=== PATIENT | female | born 1965 | race Caucasian/White ===

== ENCOUNTER 2018-03-20 21:32 | Emergency (ER) | payer OTHER, MEDICAID, SELFPAY ==
[2018-03-20 21:33] VITALS: BP 151/87; PULSE 82; RESP 18; TEMP 36.8; O2SAT 100; BMI 49.6
--- NOTE | 2018-03-20 22:33 | PC.NURSE ---
Pt taking Lasix at home, noticed leg swelling was becoming more and more severe. States takes Lasix for edema. States she has some shortness of breath. Speaking in full sentences. Lungs are clear bilaterally anterior and posterior. Elevated legs to relieve leg edema discomfort.
--- NOTE | 2018-03-20 22:43 | DI.RAD.S_ITS ---
PROCEDURE: XR CHEST 2V INDICATIONS: short of breath TECHNIQUE: 2 views of the chest were acquired. COMPARISON: [facility], CHEST 2 VIEW, 03/07/2017, 9:28. [facility], CHEST 2 VIEW, 12/26/2012, 10:17. FINDINGS: Surgical changes and devices: None. Lungs and pleura: No pleural effusions or pneumothorax. Lungs are clear. Mediastinum: Mediastinal contours are normal. Heart size is normal. Bones and chest wall: No suspicious bony abnormalities. Soft tissues appear unremarkable. IMPRESSION: No acute cardiopulmonary disease process. Dictated by: Anuja Dominique MD, PhD on 03/21/2018 at 9:23 Approved by: Anuja Dominique MD, PhD on 03/21/2018 at 9:23
--- NOTE | 2018-03-20 22:47 | ED_ITS ---
HPI - SOB/Dyspnea General Chief Complaint: Shortness of Breath/Dyspnea Stated Complaint: edema Time Seen by Provider: 03/20/18 22:36 Source: patient Mode of arrival: ambulatory Limitations: no limitations History of Present Illness Patient is a 52-year-old female who presents with lower leg swelling. She is intermittently has leg swelling which she takes Lasix for. This afternoon about 5:00 p.m. she notes increased swelling. He had some mild shortness of breath but thought maybe it was her asthma. She took 40 mg of Lasix which is double her dose. She has urinated multiple times. Breathing and leg swelling is better now. She did not have cough chest tightness heart palpitations or fever. Her breathing is better. Though she has history of orthopnea but that has remained unchanged. She has no dyspnea with exertion. She has been on her feet quite a bit lately. She has noticed increasing swelling over the past couple of days. MD Complaint: shortness of breath Related Data Home Medications Medication Instructions Recorded Confirmed meloxicam [Mobic] 15 mg PO [facility] #0 01/02/18 Previous Rx's Medication Instructions Recorded fluticasone 0 INTRANASAL BID #16 gm 12/26/16 fluconazole [Diflucan] 150 mg PO AMINS #2 tab 05/15/17 gabapentin [Neurontin] 300 mg PO HS #30 cap 07/10/17 mirtazapine 15 - 30 mg PO HS #45 tab 08/29/17 montelukast 10 mg PO HS #30 tab 09/03/17 citalopram 20 mg PO BID #60 tab 10/23/17 ranitidine HCl 300 mg PO QDAY #30 tab 11/26/17 albuterol sulfate [Proventil HFA] 2 puff INH Q4-6HP PRN #1 inh 12/03/17 thyroid (pork) [[place] Thyroid] 1 tab PO QDAY #30 tab 12/28/17 furosemide 20 mg PO QDAYP PRN #30 tab 01/15/18 clonazepam 1 mg PO HSP PRN #30 tab 01/28/18 pramipexole 3 tab PO HS #90 tab 01/28/18 pantoprazole 40 mg tablet,delayed 40 mg PO QDAY #30 tab 03/11/18 release Allergies Allergy/AdvReac Type Severity Reaction Status Date / Time animal dander [ANIMAL DANDER] Allergy Intermediate ITCHY Verified 03/20/18 21:38 WATERY EYES AND SNEEZING Review of Systems Review of Systems All systems reviewed & are unremarkable except as noted in HPI and below Constitutional Denies chills, Denies fever(s), Denies lethargy and Denies weakness Cardiovascular Denies chest pain, Denies irregular heart rhythm, Denies lightheadedness, Denies palpitations, Denies dyspnea, Denies dyspnea on exertion and Denies orthopnea Respiratory Denies cough, Denies dyspnea, Denies dyspnea on exertion and Denies wheezing Gastrointestinal Gastrointestinal: Denies abdominal pain, Denies change in bowel habits, Denies diarrhea, Denies nausea and Denies vomiting Musculoskeletal Reports system reviewed and no additional complaints, except as docu Integumentary/Breasts Denies pruritus, Denies erythema, Denies rash and Denies wounds Neurologic Denies weakness Endocrine Denies palpitations Allergic/Immunologic Denies wheezing PFSH Medical History Obstructive sleep apnea (Acute) Restless leg (Acute) Surgical History History of thyroidectomy Status post breast lumpectomy Status post laparoscopic cholecystectomy Family History Sister Age: 54 History of breast cancer, Onset Age: 38 Social History Smoking Status: Former smoker Exam Initial Vital Signs Initial Vital Signs: Vital Signs Temperature 98.3 F 03/20/18 21:33 Pulse Rate 82 03/20/18 21:33 Respiratory Rate 18 03/20/18 21:33 Blood Pressure 151/87 H 03/20/18 21:33 Pulse Oximetry 100 03/20/18 21:33 Const General: cooperative and well developed Nutritional Appearance: obese Orientation: alert, awake, oriented x3 and not confused Neck Neck: normal visual inspection, full ROM and No JVD Resp Effort & Inspection: normal respiratory effort, able to speak in complete sentences, no respiratory distress and no use of accessory muscles Auscultation: clear to auscultation bilaterally, no rales, no rhonchi and no wheezes Cardio Rate: regular rate Rhythm: regular rhythm Heart Sounds: no click, no gallops, no murmurs and no rubs Pulses: normal peripheral pulses GI Inspection: non-distended Palpation: soft, no hepatosplenomegaly, No guarding, No pulsatile mass and No tender Auscultation: normal bowel sounds Skin General: no rashes or lesions noted, No jaundice and No petechiae Neuro General: alert, oriented x3, gait normal and no focal motor deficits Cranial Nerves: CN's II-XI intact bilaterally Speech: speech normal Motor: strength 5/5 throughout Sensory Exam: no sensory deficits noted Extrem Right lower extremity: edema Details: non-pitting Left lower extremity: edema Details: non-pitting Course Orders Ordered: ED Orders 03/20/18 22:25 B Type Natriuretic Peptide Stat Basic Metabolic Panel Stat Complete Blood Count AUTO DIFF Stat Troponin with CK Cardiac Panel Stat 03/20/18 22:43 XR chest 2V Stat EKG-12 Lead Stat 03/20/18 22:58 Lactate (Lactic Acid) Stat Vital Signs - 8 hr 03/21/18 00:12 Pulse Rate 72 Respiratory Rate 16 Blood Pressure [Right Wrist] 121/56 H Pulse Oximetry 95 MDM - SOB/Dyspnea Differential Diagnosis Likely acute exacerbation of chronic obstructive airways disease and congestive heart failure Medical Records Attestation: I reviewed the patient's medical records. Lab Data Attestation: I reviewed the patient's lab results. Result diagrams: 03/20/18 22:25 03/20/18 22:25 Lab Results 03/20/18 03/20/18 03/20/18 Range/Units 22:25 22:25 22:58 WBC 7.6 (4.5-11.0) X10^3/uL RBC 4.51 (4.0-5.2) X10^6/uL Hgb 12.4 (12.0-16.0) g/dL Hct 37.0 (36-46) % MCV 82.1 (80-100) fL MCH 27.4 (26-34) PG MCHC 33.4 (30-36) % RDW 16.7 H (11.6-14.8) % Plt Count 180 (150-400) X10^3/uL Neut % (Auto) 64.5 (50-75) % Lymph % (Auto) 25.3 (25-40) % [place] % (Auto) 6.9 (3-14) % Eos % (Auto) 2.9 (2-4) % Baso % (Auto) 0.4 (0-2) % Neut # (Auto) 4900 (8176-9654) /uL Sodium 142 (137-145) mmol/L Potassium 3.5 (3.4-5.1) mmol/L Chloride 100.0 (98-107) mmol/L Carbon Dioxide 31.0 (22-32) mmol/L BUN 17.0 (7-17) mg/dL Creatinine 0.70 (0.52-1.04) mg/dL Estimated GFR > 60.0 (>60) mL/min BUN/Creatinine Ratio 24.3 H (6-22) Glucose 116 H (70-100) mg/dL Lactate 0.7 (0.7-2.1) mmol/L Calcium 8.8 (8.4-10.2) mg/dL Total Creatine Kinase 27 L (30-135) U/L Troponin I < 0.012 (0.01-0.034) ng/mL B-Natriuretic Peptide 108.0 (<100) Imaging Data Chest x-ray: Attestation: I personally reviewed and interpreted this imaging study as follows: My impression: No acute cardiopulmonary process Radiologist's impression: ECG Data Attestation: I personally reviewed and interpreted this ECG as follows: Interpretation: Normal sinus rhythm rate [address] changes Discharge Plan Departure Patient Disposition: Home, Self-Care Clinical Impression: Peripheral edema Discharge Date/Time: 03/21/18 00:35 Interventions: ED Discharge Assessment Last Done: 03/21/18 00:35 Instructions: DI for Peripheral Edema -- Bilateral Activity Restrictions/Additional Instructions: *You have been diagnosed with peripheral edema *What to do: Elevate legs as often as possible, worse compression socks if own feet for long periods of time *Take medications as directed -Lasix 20 mg once a day for the next 2 days *Follow up with your primary care provider in 2-3 days *Return to ER if you should have increasing shortness of breath, chest pain, or any new, worsening or concerning symptoms Prescriptions: No Action fluticasone 16 GM spray,suspension Intranasal BID Qty: 16 RF: 0 fluconazole [Diflucan] 150 MG tablet 150 mg PO AMINS Qty: 2 RF: 1 gabapentin [Neurontin] 300 MG capsule 300 mg PO HS Qty: 30 RF: 3 mirtazapine 15 MG tablet 15 - 30 mg PO HS Qty: 45 RF: 3 montelukast 10 MG tablet 10 mg PO HS Qty: 30 RF: 3 citalopram 20 MG tablet 20 mg PO BID Qty: 60 RF: 6 ranitidine HCl 300 MG tablet 300 mg PO QDAY Qty: 30 RF: 3 albuterol sulfate [Proventil HFA] 90 MCG/PUFF HFA aerosol inhaler 2 puff INH Q4-6HP PRNQty: 1 RF: 3 thyroid (pork) [[place] Thyroid] 90 MG tablet 1 tab PO QDAY Qty: 30 RF: 3 meloxicam [Mobic] 15 MG tablet 15 mg PO [facility] Qty: 0 RF: 0 furosemide 20 MG tablet 20 mg PO QDAYP PRNQty: 30 RF: 1 clonazepam 1 MG tablet 1 mg PO HSP PRNQty: 30 RF: 3 pramipexole 0.125 MG tablet 3 tab PO HS Qty: 90 RF: 6 pantoprazole 40 mg tablet,delayed release (DR/EC) 40 mg PO QDAY Qty: 30 RF: 6 Referrals: Ani Mckeon PA-C [Primary Care Provider] -
[2018-03-20 22:55] LABS: Add Manual Diff / Slide Review NO; Basophils Percent Auto 0.4 % (0-2); Eosinophils Percent Auto 2.9 % (2-4); Hemoglobin 12.4 g/dL (12.0-16.0); Lymphocytes Percent Auto 25.3 % (25-40); Mean Corpuscular HGB Conc 33.4 % (30-36); Mean Corpuscular Hemoglobin 27.4 PG (26-34); Mean Corpuscular Volume 82.1 fL (80-100); Monocytes Percent Auto 6.9 % (3-14); Neutrophils Absolute Auto 4900 /uL (3000-5900); Neutrophils Percent Auto 64.5 % (50-75); Platelet Count 180 X10^3/uL (150-400); Red Blood Cell Count 4.51 X10^6/uL (4.0-5.2); Red Cell Distribution Width 16.7 % (11.6-14.8); White Blood Cell Count 7.6 X10^3/uL (4.5-11.0)
[2018-03-20 22:57] LABS: BUN Creatinine Ratio 24.3 (6-22); Calcium 8.8 mg/dL (8.4-10.2); Creatine Kinase 27 U/L (30-135); Estimated Glomerular Filt Rate > 60.0 mL/min (>60); Glucose 116 mg/dL (70-100); HEMOLYSIS < 15 (0-50); Potassium 3.5 mmol/L (3.4-5.1); Sodium 142 mmol/L (137-145)
[2018-03-20 23:09] LABS: Troponin I < 0.012 ng/mL (0.01-0.034)
[2018-03-20 23:12] LABS: Lactate (Lactic Acid) 0.7 mmol/L (0.7-2.1)
[2018-03-21 00:12] VITALS: BP 121/56; PULSE 72; RESP 16; O2SAT 95
== END 2018-03-21 00:35 | disposition home or self-care (01) ==
PROVIDERS: Emergency Provider Emergency Medicine; Family Provider Physician Assistant; PCP Physician Assistant
DX: R60.9 Edema, unspecified (principal)
CPT/HCPCS: 36591; 71046; 80048; 82550; 82553; 83605; 83880; 84484; 85025; 93005; 99282; 99285

== ENCOUNTER → 2018-03-22 08:43 | Outpatient (CLI) | payer OTHER, MEDICAID, SELFPAY ==
[2018-03-22 09:39] LABS: Add Manual Diff / Slide Review NO; Basophils Percent Auto 0.4 % (0-2); Eosinophils Percent Auto 2.9 % (2-4); Hematocrit 36.5 % (36-46); Hemoglobin 12.2 g/dL (12.0-16.0); Lymphocytes Percent Auto 22.2 % (25-40); Mean Corpuscular HGB Conc 33.4 % (30-36); Mean Corpuscular Hemoglobin 27.5 PG (26-34); Mean Corpuscular Volume 82.4 fL (80-100); Monocytes Percent Auto 6.2 % (3-14); Neutrophils Absolute Auto 3600 /uL (3000-5900); Neutrophils Percent Auto 68.3 % (50-75); Platelet Count 182 X10^3/uL (150-400); Red Blood Cell Count 4.43 X10^6/uL (4.0-5.2); Red Cell Distribution Width 16.6 % (11.6-14.8); White Blood Cell Count 5.3 X10^3/uL (4.5-11.0)
[2018-03-22 09:50] LABS: Hemoglobin A1C% w Est Avg Glu 5.7 % (4.0-6.0)
[2018-03-22 10:01] LABS: Alanine Aminotransferase 42 IU/L (9-52); Albumin Globulin Ratio 1.3 (1.0-2.8); Alkaline Phosphatase 98 U/L (38-126); Aspartate Aminotransferase 25 IU/L (14-36); BUN Creatinine Ratio 18.6 (6-22); Bilirubin Total 0.5 mg/dL (0.2-1.3); Calcium 9.1 mg/dL (8.4-10.2); Cholesterol 162 mg/dL (140-199); Estimated Glomerular Filt Rate > 60.0 mL/min (>60); Globulin 3.1 g/dL (1.7-4.1); Glucose 115 mg/dL (70-100); HDL Cholesterol 62 mg/dL (40-60); HEMOLYSIS < 15 (0-50); LDL Cholesterol Calculated 86 mg/dL (<100); Potassium 4.1 mmol/L (3.4-5.1); Sodium 143 mmol/L (137-145); Total Protein 7.1 g/dL (6.3-8.2); Triglycerides 72 mg/dL (35-150)
[2018-03-22 10:17] LABS: Vitamin D 25 Hydroxy (D3) 29.4 ng/mL (30.0-100.0)
[2018-03-22 10:33] LABS: Thyroid Stimulating Hormone 1.08 uIU/mL (0.47-4.68)
== END ==
PROVIDERS: PCP Physician Assistant; Visit Provider Physician Assistant
DX: Z98.84 Bariatric surgery status (principal)
CPT/HCPCS: 36415; 80053; 80061; 82306; 83036; 84443; 85025

== ENCOUNTER → 2018-03-28 15:13 | Outpatient (CLI) | payer OTHER, MEDICAID, SELFPAY ==
[2018-03-28 16:07] LABS: C-Reactive Protein Quant 0.8 mg/dL (<1.0)
[2018-03-28 16:37] LABS: Free T3, Triiodothyronine Free 5.12 pg/mL (2.77-5.27)
[2018-04-01 21:01] LABS: ANA Screen NEGATIVE (Negative); DNA Antibody Crithidia IFA NEGATIVE (Negative); Rheumatoid Factor <14 IU/mL; Sjogren Antiboday SS-A <1.0 NEG AI (<1.0 NEGATIVE); Sjogren Antiboday SS-B <1.0 NEG AI (<1.0 NEGATIVE); Sm Antibody <1.0 NEG AI (<1.0 NEGATIVE); Sm/RNP Antibody <1.0 NEG AI (<1.0 NEGATIVE)
== END ==
PROVIDERS: Family Provider Physician Assistant; PCP Physician Assistant; Visit Provider Physician Assistant
DX: R60.9 Edema, unspecified (principal)
CPT/HCPCS: 36415; 84481; 86038; 86140; 86430

== ENCOUNTER 2018-04-09 13:50 | Day surgery (SDC) | payer OTHER, MEDICAID, SELFPAY ==
[2018-04-09] VITALS (9 sets, daily range): BP systolic 114–136; BP diastolic 71–98; PULSE 65–80; RESP 8–16; TEMP 36.3; O2SAT 93–98; BMI 104.0
--- NOTE | 2018-04-09 | PATH_ITS ---
[facility] Accession Number: [id number] . 01 Material submitted: . PART A: DUODENIUM PART B: GASTRIC PART C: GE JUNCTION . 02 Diagnosis: A. Duodenum, Biopsy: Duodenal mucosa with no diagnostic abnormality. Negative for active inflammation, features of sprue, dysplasia, and malignancy. . B. Stomach, Biopsies: Body-type mucosa with no diagnostic abnormality. No evidence of Helicobacter on H/E stain. Negative for intestinal metaplasia. Negative for dysplasia and malignancy. . C. Gastroesophageal Junction, Biopsy: Squamocolumnar junctional mucosa with no diagnostic abnormality. Negative for intestinal metaplasia by alcian blue stain. Negative for dysplasia and malignancy. [facility]/04/12/2018 . 02 Electronically signed: . Jennifer Montgomery MD, Pathologist NPI- [id number] . 01 Gross description: . Part A: DUODENIUM: Received in formalin is 1 fragment(s) of robison, soft tissue measuring 0.1 x 0.1 x 0.1 cm submitted entirely in 1 cassette(s) Part B: GASTRIC: Received in formalin are 2 fragment(s) of robison, soft tissue measuring 0.2 x 0.2 x 0.2 cm to 0.2 x 0.2 x 0.1 cm submitted entirely in 1 cassette(s) Part C: GE JUNCTION: Received in formalin are 4 fragment(s) of robison, soft tissue measuring 0.3 x 0.1 x 0.1 cm to 0.1 x 0.1 x 0.1 cm submitted entirely in 1 cassette(s) /TRC /TRC . 02 Microscopic: . Part C: An AB/PAS stain was performed to evaluate for intestinal metaplasia and is negative. A control stain showed appropriate reactivity. . 02 Pathologist provided ICD-10: R10.9 . 02 CPT . 564695, 464961, 168432, 480582 Performed at: 01 [facility] [address] [id number] MD Lobito Lopez MD Phone: [phone] Performed at: 02 [facility] [id number] [place] [id number] MD Rangel Haynes MD Phone: [phone]
[2018-04-09] MEDS: SODIUM CHLORIDE 0.9% 1,000 ML 200 ML IV (14:13)
--- NOTE | 2018-04-09 15:09 | PM.HP.1 ---
History of Present Illness Date Patient Seen: 04/09/18 Time Patient Seen: 15:09 Chief complaint: [id number] COLONOSCOPY/EGD Narrative: Very pleasant and generally healthy-appearing lady in no obvious distress. She reports her last colonoscopy was more than 10 years ago. This was longer for the age of 51 but she was having some abdominal pain and so she had a colonoscopy for evaluation. She reports that was normal. She is here today for screening colonoscopy as part of a health maintenance program. Additionally she is being evaluated for gastric bypass and she needs an EGD prior to surgical intervention. Patient History Family & Social History Social History: household members family Tobacco & Substance use: Smoking Status Former smoker alcohol intake frequency 0-2 drinks per day Substance Use Type does not use Meds Home Medications Medication Instructions Recorded Confirmed Type fluticasone 0 INTRANASAL BID #16 gm 12/26/16 03/26/18 Rx fluconazole [Diflucan] 150 mg PO AMINS #2 tab 05/15/17 03/26/18 Rx gabapentin [Neurontin] 300 mg PO HS #30 cap 07/10/17 03/26/18 Rx citalopram 20 mg PO BID #60 tab 10/23/17 03/26/18 Rx albuterol sulfate [Proventil HFA] 2 puff INH Q4-6HP PRN #1 inh 12/03/17 03/26/18 Rx thyroid (pork) [[place] Thyroid] 1 tab PO QDAY #30 tab 12/28/17 03/26/18 Rx meloxicam [Mobic] 15 mg PO [facility] #0 01/02/18 03/26/18 History clonazepam 1 mg PO HSP PRN #30 tab 01/28/18 03/26/18 Rx pramipexole 3 tab PO HS #90 tab 01/28/18 03/26/18 Rx pantoprazole 40 mg tablet,delayed 40 mg PO QDAY #30 tab 03/11/18 03/26/18 Rx release furosemide 20 mg tablet 20 mg PO QDAYP PRN #30 tab 03/25/18 03/26/18 Rx furosemide 20 mg tablet 20 mg PO DAILY PRN #30 tab 03/26/18 Rx metolazone 2.5 mg tablet 2.5 mg PO DAILY #30 tab 03/26/18 Rx potassium chloride ER 10 mEq 10 meq PO DAILY #30 tab 03/26/18 Rx tablet,extended release Allergies Allergy/AdvReac Type Severity Reaction Status Date / Time animal dander [ANIMAL DANDER] Allergy Intermediate ITCHY Verified 04/09/18 14:05 WATERY EYES AND SNEEZING grass pollen AdvReac Intermediate itching Verified 04/09/18 14:05 house dust AdvReac Intermediate itching Verified 04/09/18 14:05 Review of Systems Review of Systems All systems reviewed & are unremarkable except as noted in HPI and below Exam Vital Signs (past 8 hours): Vital Signs - 8 hr 04/09/18 14:13 Temperature 97.3 F L Pulse Rate 80 Blood Pressure 136/78 H Pulse Oximetry 98 Pulse Oximetry 98 Oxygen Delivery Method Room Air Narrative Exam Narrative: Very pleasant lady in no obvious distress HEENT: Normocephalic and atraumatic, pupils equal round reactive to light accommodation with anicteric sclera Lungs: Clear bilaterally Heart: Regular rate and rhythm Abdomen: Soft, rotund, active bowel sounds Extremities: Warm and well perfused, positive for edema Assessment & Plan Plan: Assessment/Plan Narrative: Very pleasant 52-year-old lady who is due for screening colonoscopy and needs an endoscopy as part of evaluation prior to gastric bypass. We have discussed the risks and benefits of both procedures and the patient expressed a desire to continue today
--- NOTE | 2018-04-09 15:12 | P.HP_ITS ---
History of Present Illness Date Patient Seen: 04/09/18 Time Patient Seen: 15:09 Chief complaint: [id number] COLONOSCOPY/EGD Narrative: Very pleasant and generally healthy-appearing lady in no obvious distress. She reports her last colonoscopy was more than 10 years ago. This was longer for the age of 51 but she was having some abdominal pain and so she had a colonoscopy for evaluation. She reports that was normal. She is here today for screening colonoscopy as part of a health maintenance program. Additionally she is being evaluated for gastric bypass and she needs an EGD prior to surgical intervention. Patient History Family & Social History Social History: household members family Tobacco & Substance use: Smoking Status Former smoker alcohol intake frequency 0-2 drinks per day Substance Use Type does not use Meds Home Medications Medication Instructions Recorded Confirmed Type fluticasone 0 INTRANASAL BID #16 gm 12/26/16 03/26/18 Rx fluconazole [Diflucan] 150 mg PO AMINS #2 tab 05/15/17 03/26/18 Rx gabapentin [Neurontin] 300 mg PO HS #30 cap 07/10/17 03/26/18 Rx citalopram 20 mg PO BID #60 tab 10/23/17 03/26/18 Rx albuterol sulfate [Proventil HFA] 2 puff INH Q4-6HP PRN #1 inh 12/03/17 Rx thyroid (pork) [[place] Thyroid] 1 tab PO QDAY #30 tab 12/28/17 03/26/18 Rx meloxicam [Mobic] 15 mg PO [facility] #0 01/02/18 03/26/18 History clonazepam 1 mg PO HSP PRN #30 tab 01/28/18 03/26/18 Rx pramipexole 3 tab PO HS #90 tab 01/28/18 03/26/18 Rx pantoprazole 40 mg tablet,delayed 40 mg PO QDAY #30 tab 03/11/18 03/26/18 Rx release furosemide 20 mg tablet 20 mg PO QDAYP PRN #30 tab 03/25/18 03/26/18 Rx furosemide 20 mg tablet 20 mg PO DAILY PRN #30 tab 03/26/18 Rx metolazone 2.5 mg tablet 2.5 mg PO DAILY #30 tab 03/26/18 Rx potassium chloride ER 10 mEq 10 meq PO DAILY #30 tab 03/26/18 Rx tablet,extended release Allergies Allergy/AdvReac Type Severity Reaction Status Date / Time animal dander [ANIMAL DANDER] Allergy Intermediate ITCHY Verified 04/09/18 14:05 WATERY EYES AND SNEEZING grass pollen AdvReac Intermediate itching Verified 04/09/18 14:05 house dust AdvReac Intermediate itching Verified 04/09/18 14:05 Review of Systems Review of Systems All systems reviewed & are unremarkable except as noted in HPI and below Exam Vital Signs (past 8 hours): Vital Signs - 8 hr 3 04/09/18 14:13 Temperature 97.3 F L Pulse Rate 80 Blood Pressure 136/78 H Pulse Oximetry 98 Pulse Oximetry 98 Oxygen Delivery Method Room Air Narrative Exam Narrative: Very pleasant lady in no obvious distress HEENT: Normocephalic and atraumatic, pupils equal round reactive to light accommodation with anicteric sclera Lungs: Clear bilaterally Heart: Regular rate and rhythm Abdomen: Soft, rotund, active bowel sounds Extremities: Warm and well perfused, positive for edema Assessment & Plan Plan: Assessment/Plan Narrative: Very pleasant 52-year-old lady who is due for screening colonoscopy and needs an endoscopy as part of evaluation prior to gastric bypass. We have discussed the risks and benefits of both procedures and the patient expressed a desire to continue today
--- NOTE | 2018-04-09 15:15 | SUR.OPER ---
to endo from opd via cart respirations unlabored iv patent positioned per self for procedure
[2018-04-09] MEDS: TETRACAINE/BENZOCAINE/BUTAMBEN (CETACAINE) BOTTLE 1 SPRAY TOP (15:23)
[2018-04-09] MEDS: LIDOCAINE 4% SOLN 50 ML 20 ML TOP (15:25)
--- NOTE | 2018-04-09 15:53 | PM.OP.1 ---
Operative Date/Time/Diagnoses - Date of procedure: 04/09/18 Time of procedure: 15:53 Pre-op diagnosis: Screening colonoscopy Pre-surgical planning for weight loss surgery Post-op diagnosis: same Procedure & Clinicians Procedure: Esophageal gastroduodenoscopy with biopsies and colonoscopy to the cecum Same procedure as scheduled: Yes Indications: Last colonoscopy more than 10 years ago Surgeon: Jacqui Rogers Click Yes if Unassisted: Yes Anesthesia Type: Sedation (Versed 14 mg; fentanyl 350 mcg) Operative Notes Findings: 1. Normal duodenum without evidence of inflammation 2. Normal antrum without evidence of inflammation. 3. GE junction at 40 cm from the incisors. 4. Mildly irregular GE junction with a less than 1 cm sliding hiatal hernia 5. Mild diverticulosis limited to the junction of the descending sigmoid colons 6. Excellent prep 7. Grade 1 internal hemorrhoids 8. Normal mucosa throughout without evidence of polyps, mass lesions, or AV malformations Closure Type: not applicable Specimen(s): other (1. Cold forceps biopsy of the duodenum, 2. Cold forceps biopsy of the antrum, 3. Cold forceps biopsy of GE junction) Estimated Blood Loss (mL): 1 Procedure in detail: After obtaining informed consent, the patient was brought to the GI suite and placed in the left lateral decubitus position on the examination table. After placement of appropriate monitors, the patient was given incremental doses of Versed and Fentanyl until an appropriate level of sedation was achieved. A time out was held per SCOAP protocol. We began with EGD. A bite block was gently placed between the patient's teeth. The endoscope was lubricated and then passed into the patient's posterior oropharynx. The esophagus was cannulated under direct vision and the scope was passed to the second portion of the duodenum without difficulty. The scope was then withdrawn with careful examination of all areas of the upper GI tract and mucosa. In the stomach, the instrument was retroflexed and the GE junction examined. The scope was straightened and the procedure continued with examination of the remainder of the upper GI tract. Findings are noted above. Air was aspirated from the stomach and the endoscope gently removed from the esophagus. The examination table was turned and we continued with the colonoscopy. A digital rectal examination was performed and did not reveal any masses or obstructing lesions. The colonoscope was gently passed into the patient's anus and the entire colon navigated to the level of the cecum with minimal difficulty. Once in the cecum, the scope was withdrawn being sure to go before and beyond all mucosal folds and prominences and get an excellent examination. The findings are noted above. At the level of the rectal vault, the scope was retroflexed and the internal anal canal was examined. The scope was straightened and air aspirated from the colon. The instrument was removed from the patient's body and the procedure was concluded. The patient was allowed to awaken from sedation without difficulty and taken to the post-anesthesia care unit in good condition. Total sedation time was 42 min Total colonoscopy withdrawal time was 11 min Complications: none
[2018-04-09] MEDS: fentaNYL 250 MCG/5 ML INJ 350 MCG IV (15:56)
[2018-04-09] MEDS: MIDAZOLAM 5 MG/5 ML VIAL 14 MG IV (15:57)
--- NOTE | 2018-04-09 16:14 | SUR.PHASEI ---
Some desaturations seen when very sleepy.
== END 2018-04-09 16:47 | disposition home or self-care (01) ==
PROVIDERS: Family Provider Physician Assistant; PCP Physician Assistant; Visit Provider Surgery
PROC: 0DJD8ZZ Inspection of Lower Intestinal Tract, Via Natural or Artificial Opening Endoscopic (ICD-10-PCS; CPT 45378; principal; 2018-04-09 15:00)
PROC: 0DJ08ZZ Inspection of Upper Intestinal Tract, Via Natural or Artificial Opening Endoscopic (ICD-10-PCS; CPT 43235; 2018-04-09 15:00)
DX: Z12.11 Encounter for screening for malignant neoplasm of colon (principal); Z01.818 Encounter for other preprocedural examination; E66.9 Obesity, unspecified; K44.9 Diaphragmatic hernia without obstruction or gangrene; K57.30 Diverticulosis of large intestine without perforation or abscess without bleeding; K64.0 First degree hemorrhoids
CPT/HCPCS: 43239; 45378; 88305; 88313; 99152; 99153; J2250; J3010

== ENCOUNTER 2018-06-10 18:47 | Emergency (ER) | payer OTHER, MEDICAID, SELFPAY ==
--- NOTE | 2018-06-10 19:10 | ED.CHESTPAIN ---
HPI - Chest Pain General Chief Complaint: Chest Pain Stated Complaint: CHEST DOESNT FEEL RIGHT,TINGLY,RACING Time Seen by Provider: 06/10/18 19:10 Source: patient Mode of arrival: ambulatory Limitations: no limitations History of Present Illness HPI narrative: The patient arrives with complaints of palpitations, onset today. She is currently asymptomatic. She denies chest pain or dyspnea, she just feels an occasional skipped beat. she does not routinely have palpitations. She has not been ill. She drinks a curtis amount of coffee, no tobacco and no energy drinks. She does take Lasix on an as-needed basis per peripheral edema. Her last dose was 2 days ago. She also takes a potassium supplement. She is unsure of the dose. She has no history of cardiac disease. She has no diagnosis of CHF. Related Data Previous Rx's Medication Instructions Recorded fluticasone 0 INTRANASAL BID #16 gm 12/26/16 fluconazole [Diflucan] 150 mg PO AMINS #2 tab 05/15/17 citalopram 20 mg PO BID #60 tab 10/23/17 albuterol sulfate [Proventil HFA] 2 puff INH Q4-6HP PRN #1 inh 12/03/17 thyroid (pork) [[place] Thyroid] 1 tab PO QDAY #30 tab 12/28/17 pramipexole 3 tab PO HS #90 tab 01/28/18 pantoprazole 40 mg tablet,delayed 40 mg PO QDAY #30 tab 03/11/18 release potassium chloride ER 10 mEq 10 meq PO DAILY #30 tab 03/26/18 tablet,extended release cetirizine 10 mg tablet 10 mg PO DAILY #90 tab 05/16/18 cholecalciferol (vitamin D3) 1,000 1,000 unit PO DAILY #90 cap 05/16/18 unit capsule furosemide 20 mg tablet 20 mg PO DAILY PRN #30 tab 06/03/18 clonazepam 1 mg tablet 1 mg PO HSP PRN #30 tab 06/04/18 metolazone 2.5 mg tablet 2.5 mg PO DAILY #30 tab 06/10/18 Allergies Allergy/AdvReac Type Severity Reaction Status Date / Time animal dander [ANIMAL DANDER] Allergy Intermediate ITCHY Verified 05/16/18 10:08 WATERY EYES AND SNEEZING grass pollen AdvReac Intermediate itching Verified 05/16/18 10:08 house dust AdvReac Intermediate itching Verified 05/16/18 10:08 Review of Systems Constitutional Denies chills, Denies fever(s), Denies lethargy and Denies weakness ENT Ears, Nose, Mouth, and Throat: Denies change in voice, Denies neck pain and Denies sore throat Cardiovascular Denies chest pain, Denies syncope, Denies rapid heart rate, Reports pedal edema, Denies irregular heart rhythm, Denies lightheadedness, Reports palpitations, Denies dyspnea, Denies dyspnea on exertion and Denies orthopnea Respiratory Denies cough, Denies dyspnea, Denies dyspnea on exertion and Denies wheezing Gastrointestinal Gastrointestinal: Denies abdominal pain, Denies change in bowel habits, Denies diarrhea, Denies nausea and Denies vomiting Musculoskeletal Denies back pain, Denies neck pain and Reports other ( Recurrent lower extremity edema.) Integumentary/Breasts Denies pruritus, Denies erythema, Denies rash and Denies wounds Neurologic Denies syncope and Denies weakness Endocrine Reports palpitations Allergic/Immunologic Denies wheezing [facility], [facility] Medical History Obstructive sleep apnea (Acute) Restless leg (Acute) Acquired hypothyroidism (Chronic ~2016) Depression (Chronic Unknown) Peripheral edema (Chronic ~2010) Varicose veins of both lower extremities with complications (Chronic ~2010) Surgical History History of thyroidectomy Status post breast lumpectomy Status post laparoscopic cholecystectomy Family History Sister Age: 54 History of breast cancer, Onset Age: 38 Social History household members: family Smoking Status: Former smoker Tobacco: How many years used: 3 second hand exposure: No alcohol intake: current (Couple glasses of wine a month) substance use type: does not use Exam Initial Vital Signs Initial Vital Signs: Vital Signs Pulse Rate 72 06/10/18 19:33 Respiratory Rate 16 06/10/18 19:33 Blood Pressure 136/69 H 06/10/18 19:33 Pulse Oximetry 98 06/10/18 19:33 Const General: cooperative and well developed Nutritional Appearance: well nourished Orientation: alert, awake, oriented x3 and not confused [facility] Head: normocephalic and atraumatic Mouth: oral mucosae normal and moist mucous membranes Teeth and gingiva: dentition normal and gingiva abnormal Throat: posterior oropharynx normal Eyes Conjunctivae: conjunctivae normal Pupils: PERRL EOM: EOM intact bilaterally Neck Neck: No JVD Chest Chest: No tenderness Resp Effort & Inspection: normal respiratory effort, able to speak in complete sentences and no respiratory distress Auscultation: clear to auscultation bilaterally, no rales, no rhonchi and no wheezes Cardio Rate: regular rate Rhythm: regular rhythm Heart Sounds: S1 normal, S2 normal, no click, no gallops, no murmurs and no rubs Pulses: normal peripheral pulses GI Inspection: non-distended Palpation: soft, no hepatosplenomegaly, No guarding, No pulsatile mass and No tender Auscultation: normal bowel sounds Skin General: no rashes or lesions noted, No jaundice and No petechiae Neuro General: alert, oriented x3, gait normal and no focal motor deficits Speech: speech normal Extrem General: full ROM, no calf tenderness and edema Course Orders Ordered: ED Orders 06/10/18 19:20 Basic Metabolic Panel Stat Complete Blood Count AUTO DIFF Stat Magnesium Stat Discontinued Medications Potassium Chloride (Potassium Chloride) 40 meq PO NOW ONE Stop: 06/10/18 20:01 Last Admin: 06/10/18 20:06 Dose: 40 meq Vital Signs - 8 hr 06/10/18 19:33 Pulse Rate 72 Respiratory Rate 16 Blood Pressure [Left Arm] 136/69 H Pulse Oximetry 98 MDM - Chest Pain Lab Data Result diagrams: 06/10/18 19:20 06/10/18 19:20 Lab Results 06/10/18 06/10/18 Range/Units 19:20 19:20 WBC 9.7 (4.5-11.0) X10^3/uL RBC 4.85 (4.0-5.2) X10^6/uL Hgb 13.9 (12.0-16.0) g/dL Hct 41.8 (36-46) % MCV 86.1 (80-100) fL MCH 28.7 (26-34) PG MCHC 33.4 (30-36) % RDW 16.4 H (11.6-14.8) % Plt Count 233 (150-400) X10^3/uL Neut % (Auto) 75.2 H (50-75) % Lymph % (Auto) 14.9 L (25-40) % [place] % (Auto) 7.1 (3-14) % Eos % (Auto) 2.4 (2-4) % Baso % (Auto) 0.4 (0-2) % Neut # (Auto) 7300 H (9447-9290) /uL Sodium 140 (137-145) mmol/L Potassium 2.5 L* (3.4-5.1) mmol/L Chloride 95 L (98-107) mmol/L Carbon Dioxide 36 H (22-32) mmol/L BUN 13 (7-17) mg/dL Creatinine 0.70 (0.52-1.04) mg/dL Estimated GFR > 60.0 (>60) mL/min BUN/Creatinine Ratio 18.6 (6-22) Glucose 111 H (70-100) mg/dL Calcium 8.7 (8.4-10.2) mg/dL Magnesium 1.8 (1.6-2.3) mg/dL ECG Data Attestation: I personally reviewed and interpreted this ECG as follows: ( EKG: Normal sinus rhythm rate 82 bpm. Possible right ventricular conduction delay. LAFB. No acute ST T wave changes. No ectopy. ) Discharge Plan Departure Patient Disposition: Home, Self-Care Clinical Impression: Acute hypokalemia Instructions: High-Potassium Diet Activity Restrictions/Additional Instructions: I have given him instructions for a high potassium diet, have at least 2 servings daily. Have your doctor recheck your potassium level in about 3 days. Continue with her potassium supplement. Return here as needed. Prescriptions: No Action potassium chloride [Klor-Con 10] 10 mEq tablet extended release 10 meq PO DAILY Qty: 30 RF: 1 cetirizine [All Day Allergy (cetirizine)] 10 mg tablet 10 mg PO DAILY Qty: 90 RF: 3 cholecalciferol (vitamin D3) 1,000 unit capsule 1,000 unit PO DAILY Qty: 90 RF: 3 fluticasone 16 GM spray,suspension Intranasal BID Qty: 16 RF: 0 fluconazole [Diflucan] 150 MG tablet 150 mg PO AMINS Qty: 2 RF: 1 citalopram 20 MG tablet 20 mg PO BID Qty: 60 RF: 6 albuterol sulfate [Proventil HFA] 90 MCG/PUFF HFA aerosol inhaler 2 puff INH Q4-6HP PRNQty: 1 RF: 3 thyroid (pork) [[place] Thyroid] 90 MG tablet 1 tab PO QDAY Qty: 30 RF: 3 pramipexole 0.125 MG tablet 3 tab PO HS Qty: 90 RF: 6 pantoprazole 40 mg tablet,delayed release (DR/EC) 40 mg PO QDAY Qty: 30 RF: 6 furosemide [Lasix] 20 mg tablet 20 mg PO DAILY PRN (Reason: edema) Qty: 30 RF: 0 clonazepam 1 mg tablet 1 mg PO HSP PRN (Reason: anxiety) Qty: 30 RF: 3 metolazone 2.5 mg tablet 2.5 mg PO DAILY Qty: 30 RF: 1
--- NOTE | 2018-06-10 19:27 | PC.NURSE ---
Patient with palpitation - no chest pain;
[2018-06-10 19:33] VITALS: BP 136/69; PULSE 72; RESP 16; O2SAT 98
[2018-06-10 19:33] LABS: Add Manual Diff / Slide Review NO; Basophils Percent Auto 0.4 % (0-2); Eosinophils Percent Auto 2.4 % (2-4); Hematocrit 41.8 % (36-46); Hemoglobin 13.9 g/dL (12.0-16.0); Lymphocytes Percent Auto 14.9 % (25-40); Mean Corpuscular HGB Conc 33.4 % (30-36); Mean Corpuscular Hemoglobin 28.7 PG (26-34); Mean Corpuscular Volume 86.1 fL (80-100); Monocytes Percent Auto 7.1 % (3-14); Neutrophils Absolute Auto 7300 /uL (3000-5900); Neutrophils Percent Auto 75.2 % (50-75); Platelet Count 233 X10^3/uL (150-400); Red Blood Cell Count 4.85 X10^6/uL (4.0-5.2); Red Cell Distribution Width 16.4 % (11.6-14.8); White Blood Cell Count 9.7 X10^3/uL (4.5-11.0)
[2018-06-10 19:38] LABS: BUN Creatinine Ratio 18.6 (6-22); Blood Urea Nitrogen 13 mg/dL (7-17); Calcium 8.7 mg/dL (8.4-10.2); Carbon Dioxide 36 mmol/L (22-32); Chloride 95 mmol/L (98-107); Estimated Glomerular Filt Rate > 60.0 mL/min (>60); Glucose 111 mg/dL (70-100); HEMOLYSIS < 15 (0-50); Magnesium 1.8 mg/dL (1.6-2.3); Sodium 140 mmol/L (137-145)
[2018-06-10 19:57] LABS: Potassium 2.5 mmol/L (3.4-5.1)
[2018-06-10] MEDS: POTASSIUM CHLORIDE 20 MEQ/15 ML UDC 40 MEQ PO (20:06)
[2018-06-10 20:56] VITALS: BP 130/76; PULSE 71; RESP 14; O2SAT 98
== END 2018-06-10 20:56 | disposition home or self-care (01) ==
PROVIDERS: Emergency Provider Emergency Medicine; Family Provider Physician Assistant; PCP Physician Assistant
DX: E87.6 Hypokalemia (principal)
CPT/HCPCS: 36591; 80048; 83735; 85025; 93005; 93010; 93041; 99283; 99284

== ENCOUNTER → 2018-07-11 16:35 | Outpatient (CLI) | payer OTHER, MEDICAID, SELFPAY ==
[2018-07-11 17:53] LABS: HEMOLYSIS < 15 (0-50); Potassium 3.5 mmol/L (3.4-5.1)
[2018-07-11 18:18] LABS: Vitamin D 25 Hydroxy (D3) 52.8 ng/mL (30.0-100.0)
== END ==
PROVIDERS: Family Provider Physician Assistant; PCP Physician Assistant; Visit Provider Physician Assistant
DX: E55.9 Vitamin D deficiency, unspecified (principal); Z98.84 Bariatric surgery status; E87.6 Hypokalemia
CPT/HCPCS: 36415; 82306; 84132

== ENCOUNTER → 2018-08-05 09:44 | Outpatient (CLI) | payer OTHER, MEDICAID, SELFPAY ==
[2018-08-05 11:19] LABS: BUN Creatinine Ratio 21.7 (6-22); Blood Urea Nitrogen 13 mg/dL (7-17); Calcium 9.3 mg/dL (8.4-10.2); Carbon Dioxide 31 mmol/L (22-32); Chloride 101 mmol/L (98-107); Estimated Glomerular Filt Rate > 60.0 mL/min (>60); Glucose 95 mg/dL (70-100); HEMOLYSIS < 15 (0-50); Potassium 4.5 mmol/L (3.4-5.1); Sodium 145 mmol/L (137-145)
== END ==
PROVIDERS: PCP Physician Assistant; Visit Provider Physician Assistant
DX: E87.6 Hypokalemia (principal); R60.9 Edema, unspecified
CPT/HCPCS: 36415; 80048

== ENCOUNTER 2018-08-10 22:12 | Emergency (ER) | payer OTHER, MEDICAID, SELFPAY ==
[2018-08-10 22:21] VITALS: BP 125/53; PULSE 78; RESP 18; TEMP 36.6; O2SAT 99; BMI 44.6
--- NOTE | 2018-08-10 22:24 | ED_ITS ---
HPI - Abdominal Pain General Chief Complaint: Abdominal Pain Stated Complaint: GASTRIC SURGERY NOT FEELING WELL Time Seen by Provider: 08/10/18 22:21 Source: patient Mode of arrival: ambulatory Limitations: no limitations History of Present Illness HPI narrative: 52-year-old female status post Vasu-en-Y gastric bypass performed by Dr. Ortiz on the 29 of July at [facility]. She states that there has been uncomplicated since then. She comes in tonight for less than 24 hr of pain in her epigastric area when eating. No change in bowel. No fevers. Has not talked with her operative surgeon prior to arrival. Related Data Home Medications Medication Instructions Recorded Confirmed Potassium See Label Instructions .ROUTE 08/05/18 08/05/18 .COMPLEX Vitamin D3 See Label Instructions .ROUTE 08/05/18 08/05/18 .COMPLEX Previous Rx's Medication Instructions Recorded fluticasone 0 INTRANASAL BID #16 gm 12/26/16 fluconazole [Diflucan] 150 mg PO AMINS #2 tab 05/15/17 albuterol sulfate [Proventil HFA] 2 puff INH Q4-6HP PRN #1 inh 12/03/17 pramipexole 3 tab PO HS #90 tab 01/28/18 pantoprazole 40 mg tablet,delayed 40 mg PO QDAY #30 tab 03/11/18 release cetirizine 10 mg tablet 10 mg PO DAILY #90 tab 05/16/18 clonazepam 1 mg tablet 1 mg PO HSP PRN #30 tab 06/04/18 metolazone 2.5 mg tablet 2.5 mg PO DAILY #30 tab 06/10/18 citalopram 20 mg PO BID #60 tab 06/17/18 thyroid (pork) [[place] Thyroid] 1 tab PO QDAY #30 tab 06/19/18 mirtazapine 15 mg tablet See Label Instructions PO BEDTIME 07/03/18 PRN #45 tab furosemide 20 mg tablet 20 mg PO DAILY PRN #30 tab 07/12/18 varicella-zoster glycoE [id number] 50 mcg IM ONCE #1 each 08/05/18 adj(PF) 50 mcg/0.5 mL IM susp, kit Allergies Allergy/AdvReac Type Severity Reaction Status Date / Time animal dander [ANIMAL DANDER] Allergy Intermediate ITCHY Verified 08/05/18 09:03 WATERY EYES AND SNEEZING grass pollen AdvReac Intermediate itching Verified 08/05/18 09:03 house dust AdvReac Intermediate itching Verified 08/05/18 09:03 Review of Systems Constitutional Denies fever(s) ENT Ears, Nose, Mouth, and Throat: Denies dysphagia, Denies vertigo and Denies dizziness Cardiovascular Denies chest pain and Denies dyspnea Respiratory Denies cough and Denies dyspnea Gastrointestinal Gastrointestinal: Reports abdominal pain, Denies melena, Denies change in bowel habits, Denies dysphagia, Reports nausea and Reports vomiting Genitourinary Denies dysuria and Denies flank pain Musculoskeletal Denies myalgias and Denies arthralgias Integumentary/Breasts Denies lesions and Denies rash Neurologic Denies vertigo and Denies dizziness Hematologic/Lymphatic Denies easy bleeding and Denies easy bruising [facility] Medical History Acquired hypothyroidism (Chronic ~2016) Allergic rhinitis (Chronic) Depression (Chronic Unknown) Obstructive sleep apnea (Chronic) Peripheral edema (Chronic ~2010) Restless leg (Chronic) Varicose veins of both lower extremities with complications (Chronic ~2010) Surgical History History of thyroidectomy Status post breast lumpectomy Status post laparoscopic cholecystectomy Family History Sister Age: 54 History of breast cancer, Onset Age: 38 Social History household members: family Smoking Status: Former smoker Tobacco: How many years used: 3 second hand exposure: No alcohol intake: current substance use type: does not use Exam Initial Vital Signs Initial Vital Signs: Vital Signs Temperature 97.8 F 08/10/18 22:21 Pulse Rate 78 08/10/18 22:21 Respiratory Rate 18 08/10/18 22:21 Blood Pressure 125/53 L 08/10/18 22:21 Pulse Oximetry 99 08/10/18 22:21 Const General: cooperative, healthy appearing, comfortable, well developed, well groomed and No acute distress Orientation: alert, awake and oriented x3 HENMT Head: normal to inspection and normocephalic Resp Effort & Inspection: normal respiratory effort Auscultation: clear to auscultation bilaterally Cardio Rate: regular rate Pulses: radial pulses present GI Inspection: non-distended Palpation: soft, No firm and tender ( Epigastric region, no rebound or guarding) Skin Other: well healing surgical wounds consistent with her history of gastric bypass Neuro General: alert and awake Extrem General: normal to inspection and capillary refill normal Psych Appearance: grossly normal and well kempt Course Orders Ordered: ED Orders 08/10/18 22:26 CT abdomen pelvis w con Stat Urinalysis and Microscopic Stat 08/10/18 22:30 Complete Blood Count AUTO DIFF Stat Comprehensive Metabolic Panel Stat Lactate (Lactic Acid) Stat Lipase Stat Discontinued Medications Sodium Chloride (Normal Saline 0.9%) 1,000 mls @ 1,000 mls/hr IV BOLUS ONE Stop: 08/10/18 23:24 Last Admin: 08/10/18 22:40 Dose: 1,000 mls/hr Ondansetron HCl (Zofran) 4 mg IV NOW ONE Stop: 08/10/18 23:31 Last Admin: 08/10/18 22:40 Dose: 4 mg Vital Signs - 8 hr 08/10/18 22:21 Temperature 97.8 F Pulse Rate 78 Respiratory Rate 18 Blood Pressure 125/53 L Pulse Oximetry 99 MDM - Abdominal Pain Lab Data Attestation: I reviewed the patient's lab results. Result diagrams: 08/10/18 22:30 08/10/18 22:30 Lab Results 08/10/18 08/10/18 08/10/18 Range/Units 22:30 22:30 22:30 WBC 6.3 (4.5-11.0) X10^3/uL RBC 4.67 (4.0-5.2) X10^6/uL Hgb 13.1 (12.0-16.0) g/dL Hct 39.8 (36-46) % MCV 85.3 (80-100) fL MCH 28.1 (26-34) PG MCHC 32.9 (30-36) % RDW 16.5 H (11.6-14.8) % Plt Count 237 (150-400) X10^3/uL Neut % (Auto) 66.1 (50-75) % Lymph % (Auto) 24.1 L (25-40) % [place] % (Auto) 7.0 (3-14) % Eos % (Auto) 2.1 (2-4) % Baso % (Auto) 0.7 (0-2) % Neut # (Auto) 4100 (8205-8552) /uL Sodium 143 (137-145) mmol/L Potassium 3.6 (3.4-5.1) mmol/L Chloride 106 (98-107) mmol/L Carbon Dioxide 29 (22-32) mmol/L BUN 18 H (7-17) mg/dL Creatinine 0.70 (0.52-1.04) mg/dL Estimated GFR > 60.0 (>60) mL/min BUN/Creatinine Ratio 25.7 H (6-22) Glucose 105 H (70-100) mg/dL Lactate 0.9 (0.7-2.1) mmol/L Calcium 9.0 (8.4-10.2) mg/dL Total Bilirubin 0.4 (0.2-1.3) mg/dL AST 35 (14-36) IU/L ALT 66 H (9-52) IU/L Alkaline Phosphatase 82 (38-126) U/L Total Protein 7.4 (6.3-8.2) g/dL Albumin 4.2 (3.5-5.0) g/dL Globulin 3.2 (1.7-4.1) g/dL Albumin/Globulin Ratio 1.3 (1.0-2.8) Lipase 47 (23-300) U/L Imaging Data CT scan - abdomen: Radiologist's impression: gastric bypass changes as described without evidence of obstruction or contrast extravasation. Cholecystectomy. Postoperative changes. No when asked amount of leak. No free fluid or free air is identified MDM Narrative Medical decision making narrative: patient with a relatively benign abdominal exam. Lactate unremarkable. Labs unremarkable. CT scan shows no signs of obstruction, internal hernia, leaks. Patient does have her medication at home. She is on a PPI. No indication for urgent surgical referrals. Discussed all this with the patient. She was given return precautions. She is going to contact her operative surgeon tomorrow to discuss her symptoms and to discuss follow-up. Patient expressed understanding and agreement with plan. Discharge Plan Departure Patient Disposition: Home Clinical Impression: Abdominal pain Instructions: DI for Abdominal Pain-Adult Activity Restrictions/Additional Instructions: continue all of your postoperative instructions and medications as directed by your operative surgeon. continue to drink small amounts of fluid over longer periods of time. Return to the emergency department for any new symptoms. Call your operative surgeon tomorrow to discuss follow-up. Prescriptions: No Action cetirizine [All Day Allergy (cetirizine)] 10 mg tablet 10 mg PO DAILY Qty: 90 RF: 3 Vitamin D3 See Patient Comments .ROUTE .COMPLEX RF: 0 Potassium See Patient Comments .ROUTE .COMPLEX RF: 0 varicella-zoster [id number] (PF) [Shingrix (PF)] 50 mcg/0.5 mL suspension for reconstitution 50 mcg IM ONCE Qty: 1 RF: 1 fluticasone 16 GM spray,suspension Intranasal BID Qty: 16 RF: 0 fluconazole [Diflucan] 150 MG tablet 150 mg PO AMINS Qty: 2 RF: 1 albuterol sulfate [Proventil HFA] 90 MCG/PUFF HFA aerosol inhaler 2 puff INH Q4-6HP PRNQty: 1 RF: 3 pramipexole 0.125 MG tablet 3 tab PO HS Qty: 90 RF: 6 pantoprazole 40 mg tablet,delayed release (DR/EC) 40 mg PO QDAY Qty: 30 RF: 6 clonazepam 1 mg tablet 1 mg PO HSP PRN (Reason: anxiety) Qty: 30 RF: 3 metolazone 2.5 mg tablet 2.5 mg PO DAILY Qty: 30 RF: 1 citalopram 20 mg tablet 20 mg PO BID Qty: 60 RF: 6 thyroid (pork) [[place] Thyroid] 90 mg tablet 1 tab PO QDAY Qty: 30 RF: 3 mirtazapine 15 mg tablet See Label Instructions PO BEDTIME PRN (Reason: for sleep) Qty: 45 RF: 3 furosemide [Lasix] 20 mg tablet 20 mg PO DAILY PRN (Reason: edema) Qty: 30 RF: 0
--- NOTE | 2018-08-10 22:26 | DI.CT.S_ITS ---
PROCEDURE: CT ABDOMEN PELVIS W CON INDICATIONS: weight loss surgery 07/29 now with abd pain TECHNIQUE: After the administration of intravenous contrast, 5 mm thick sections acquired from the diaphragm to the symphysis. 5 mm coronal and sagittal reformats were acquired. For radiation dose reduction, the following was used: automated exposure control, adjustment of mA and/or kV according to patient size. COMPARISON: None. FINDINGS: Image quality: Excellent. ABDOMEN: Lung bases: Lung bases are clear. Heart size is normal. Solid organs: Liver is enlarged. Gallbladder has been. Biliary system is non dilated. Pancreas enhances normally. Spleen is normal in size and enhancement. No adrenal nodules. Kidneys demonstrate normal size and enhancement, without hydronephrosis. Peritoneum and bowel: Bowel loops demonstrate normal wall thickness and caliber. No free fluid or air. Surgical changes reflecting gastric bypass. No visualized extravasation near the anastomotic site. Nodes and vessels: No retroperitoneal or mesenteric adenopathy by size criteria. Aorta and inferior vena cava are normal in size. Miscellaneous: Subcutaneous fat stranding is present likely representing a laparoscopic port entry for recent surgery. PELVIS: Genitourinary: Bladder wall thickness is normal. Intrauterine device is present. Miscellaneous: No inguinal hernias or adenopathy. Bones: No suspicious bony lesions. No vertebral body compression fractures. IMPRESSION: 1. Postsurgical gastric bypass changes without gross postoperative complication. No visualized anastomotic leak. Dictated by: Sandie Crystal M.D. on 08/11/2018 at 9:17 Approved by: Sandie Crystal M.D. on 08/11/2018 at 9:22
[2018-08-10] MEDS: SODIUM CHLORIDE 0.9% 1,000 ML 1000 ML IV (22:40)
[2018-08-10] MEDS: ONDANSETRON 4 MG/2 ML INJ IV (22:40)
[2018-08-10 22:59] LABS: Add Manual Diff / Slide Review NO; Basophils Percent Auto 0.7 % (0-2); Eosinophils Percent Auto 2.1 % (2-4); Hematocrit 39.8 % (36-46); Hemoglobin 13.1 g/dL (12.0-16.0); Lymphocytes Percent Auto 24.1 % (25-40); Mean Corpuscular HGB Conc 32.9 % (30-36); Mean Corpuscular Hemoglobin 28.1 PG (26-34); Mean Corpuscular Volume 85.3 fL (80-100); Neutrophils Absolute Auto 4100 /uL (3000-5900); Neutrophils Percent Auto 66.1 % (50-75); Platelet Count 237 X10^3/uL (150-400); Red Blood Cell Count 4.67 X10^6/uL (4.0-5.2); Red Cell Distribution Width 16.5 % (11.6-14.8); White Blood Cell Count 6.3 X10^3/uL (4.5-11.0)
[2018-08-10 23:10] LABS: Alanine Aminotransferase 66 IU/L (9-52); Albumin 4.2 g/dL (3.5-5.0); Albumin Globulin Ratio 1.3 (1.0-2.8); Alkaline Phosphatase 82 U/L (38-126); Aspartate Aminotransferase 35 IU/L (14-36); BUN Creatinine Ratio 25.7 (6-22); Bilirubin Total 0.4 mg/dL (0.2-1.3); Blood Urea Nitrogen 18 mg/dL (7-17); Carbon Dioxide 29 mmol/L (22-32); Chloride 106 mmol/L (98-107); Estimated Glomerular Filt Rate > 60.0 mL/min (>60); Globulin 3.2 g/dL (1.7-4.1); Glucose 105 mg/dL (70-100); HEMOLYSIS < 15 (0-50); Lactate (Lactic Acid) 0.9 mmol/L (0.7-2.1); Lipase 47 U/L (23-300); Potassium 3.6 mmol/L (3.4-5.1); Sodium 143 mmol/L (137-145); Total Protein 7.4 g/dL (6.3-8.2)
--- NOTE | 2018-08-11 01:18 | PC.NURSE ---
pt reports gastric bypass on 07/29. has pain when eating that causes vomiting. pt attempted to take po contrast but vomited it up.
[2018-08-11 01:27] VITALS: BP 131/66; PULSE 77; RESP 14; O2SAT 98
--- NOTE | 2018-08-15 16:47 | PC.NURSE ---
Pt states I am doing well,I am feeling 100% normal. Pt met with surgeon and everything looks great. Pt did not have any improvements that we could have made.
== END 2018-08-11 01:29 | disposition home or self-care (01) ==
PROVIDERS: Emergency Provider Emergency Medicine; Family Provider Physician Assistant; PCP Physician Assistant
DX: R10.9 Unspecified abdominal pain (principal)
CPT/HCPCS: 36591; 74177; 80053; 83605; 83690; 85025; 96361; 96374; 99283; 99285; J2405; Q9967

== ENCOUNTER 2018-08-30 18:24 | Emergency (ER) | payer OTHER, MEDICAID, SELFPAY ==
[2018-08-30 18:39] VITALS: BP 125/85; PULSE 93; RESP 18; TEMP 37.1; O2SAT 96; BMI 42.4
--- NOTE | 2018-08-30 20:09 | ED_ITS ---
HPI - Weakness <Ananbel Jimenez PA-C - Last Filed: 08/30/18 22:27> General Chief complaint: Weakness Stated complaint: WEAK AND DIZZY,THINKS DEHYDRATED Time Seen by Provider: 08/30/18 20:03 Source: patient Mode of arrival: ambulatory Limitations: no limitations History of Present Illness HPI Narrative: This 52-year-old female comes in due to feeling of generalized weakness and feeling dizzy, which she describes as foggy headed. She states that she felt better right away after her last visit here and her bariatric surgeon thought she just had a reaction to eating too quickly. For the last 2 days, she states that she has had no energy and though going about her usual activities such as work, she has had to drag herself. She states that she has been very busy and on the go and states she thinks that she is probably dehydrated. Since her surgery, she states that she has been careful to set an alarm and drink plenty of fluids and eat regularly, but she has not for the last couple of days. She states that she has some abdominal discomfort that is typical for her since surgery, which she describes as gas type pain. She has ongoing loose stools and some diarrhea that are unchanged since surgery. She does not have any new urinary symptoms. She has not had any chest pain, dyspnea , or palpitations. She denies any headache or vision change. She has not had any urinary symptoms at all. She states that she did eat today at 4:00 a.m.. She had 1 episode of vomiting earlier, but does not have nausea now and has not had other episodes of this. She states that she thinks that the foggy headed sensation is more of a sensation of feeling out of it, she denies any spinning or sensation that she is falling. Related Data Home Medications Medication Instructions Recorded Confirmed Potassium See Label Instructions .ROUTE 08/05/18 08/05/18 .COMPLEX Vitamin D3 See Label Instructions .ROUTE 08/05/18 08/05/18 .COMPLEX Previous Rx's Medication Instructions Recorded fluticasone 0 INTRANASAL BID #16 gm 12/26/16 fluconazole [Diflucan] 150 mg PO AMINS #2 tab 05/15/17 albuterol sulfate [Proventil HFA] 2 puff INH Q4-6HP PRN #1 inh 12/03/17 pantoprazole 40 mg tablet,delayed 40 mg PO QDAY #30 tab 03/11/18 release cetirizine 10 mg tablet 10 mg PO DAILY #90 tab 05/16/18 clonazepam 1 mg tablet 1 mg PO HSP PRN #30 tab 06/04/18 citalopram 20 mg PO BID #60 tab 06/17/18 thyroid (pork) [Cabot Thyroid] 1 tab PO QDAY #30 tab 06/19/18 mirtazapine 15 mg tablet See Label Instructions PO BEDTIME 07/03/18 PRN #45 tab furosemide 20 mg tablet 20 mg PO DAILY PRN #30 tab 07/12/18 varicella-zoster glycoE [id number] 50 mcg IM ONCE #1 each 08/05/18 adj(PF) 50 mcg/0.5 mL IM susp, kit metolazone 2.5 mg tablet 2.5 mg PO DAILY #30 tab 08/13/18 pramipexole 3 tab PO HS #90 tab 08/26/18 meclizine [Motion Relief 25 mg PO Q4-6H PRN #14 tab 08/30/18 (meclizine)] Allergies Allergy/AdvReac Type Severity Reaction Status Date / Time animal dander [ANIMAL DANDER] Allergy Intermediate ITCHY Verified 08/30/18 18:43 WATERY EYES AND SNEEZING grass pollen AdvReac Intermediate itching Verified 08/30/18 18:43 house dust AdvReac Intermediate itching Verified 08/30/18 18:43 Review of Systems <Annabel Jimenez PA-C - Last Filed: 08/30/18 22:27> Review of Systems All systems reviewed & are unremarkable except as noted in HPI and below Exam <Annabel Jimenez PA-C - Last Filed: 08/30/18 22:27> Narrative Exam Narrative: GENERAL APPEARANCE: Patient sitting comfortably, in no distress. HEENT: PERRL, EOMI, no scleral icterus. No nystagmus. TMs not visible secondary to narrow canals and some increased cerumen. normal oropharynx NECK: Supple LUNGS: Clear to auscultation bilaterally. HEART: Rate and rhythm regular, normal S1 and S2, no S3 or S4. ABDOMEN: Soft, obese,nontender, nondistended, bowel sounds present x 4 quadrants, no masses palpable, no hepatosplenomegaly. EXTREMITIES: No edema, no cyanosis, no calf tenderness DERMATOLOGIC: No jaundice or exanthem NEUROLOGIC: Alert and oriented with normal speech and coordination. mild vertigo elicited with Hallpike maneuver and head turn to right side . Patient is able to ambulate through the ED but appears momentarily off balance with position changes. MS: Normal extremity ROM, no facial muscle asymmetry Initial Vital Signs Initial Vital Signs: Vital Signs Temperature 98.8 F 08/30/18 18:39 Pulse Rate 93 H 08/30/18 18:39 Respiratory Rate 18 08/30/18 18:39 Blood Pressure 125/85 08/30/18 18:39 Pulse Oximetry 96 08/30/18 18:39 <Willie Miller DO - Last Filed: 08/31/18 02:25> Initial Vital Signs Initial Vital Signs: Vital Signs Temperature 98.8 F 08/30/18 18:39 Pulse Rate 93 H 08/30/18 18:39 Respiratory Rate 18 08/30/18 18:39 Blood Pressure 125/85 08/30/18 18:39 Pulse Oximetry 96 08/30/18 18:39 Course <Annabel Jimenez PA-C - Last Filed: 08/30/18 22:27> Additional Information: no concerning neurologic exam findings aside from positive Hallpike maneuver. She did not appear to have any focal weakness. No acute findings on lab work. She will remain off work tomorrow and rest, hydrate and eat normally, take meclizine as needed. She was advised to avoid driving. She agreed to return if any changes or acutely worsening symptoms over the weekend, otherwise will follow up with her PCP if not improved by Sunday . I was unable to visualize her TMs on exam today. Findings reviewed with Dr. Miller who is agreeable with plan Orders Ordered: ED Orders 08/30/18 20:10 Complete Blood Count AUTO DIFF Stat Comprehensive Metabolic Panel Stat Lipase Stat Partial Thromboplastin Time Stat Prothrombin Time INR Stat 08/30/18 20:17 EKG-12 Lead Stat Discontinued Medications Sodium Chloride (Normal Saline 0.9%) 1,000 mls @ 1,000 mls/hr IV BOLUS ONE Stop: 08/30/18 20:59 Last Infusion: 08/30/18 21:14 Dose: 0 mls/hr Admin: 08/30/18 20:14 Dose: 1,000 mls/hr Meclizine HCl (Antivert) 25 mg PO NOW ONE Stop: 08/30/18 20:28 Last Admin: 08/30/18 21:00 Dose: 25 mg Vital Signs - 8 hr 08/30/18 18:39 08/30/18 20:17 08/30/18 21:00 Temperature 98.8 F 97.6 F Pulse Rate 93 H 72 69 Respiratory Rate 18 16 16 Blood Pressure 125/85 Blood Pressure [Left Arm] 110/70 117/62 Pulse Oximetry 96 100 98 08/30/18 21:22 Temperature 97.8 F Pulse Rate 67 Respiratory Rate 16 Blood Pressure Blood Pressure [Left Arm] 103/60 Pulse Oximetry 97 <Willie Miller DO - Last Filed: 08/31/18 02:25> Orders Ordered: ED Orders 08/30/18 20:10 Complete Blood Count AUTO DIFF Stat Comprehensive Metabolic Panel Stat Lipase Stat Partial Thromboplastin Time Stat Prothrombin Time INR Stat 08/30/18 20:17 EKG-12 Lead Stat Discontinued Medications Sodium Chloride (Normal Saline 0.9%) 1,000 mls @ 1,000 mls/hr IV BOLUS ONE Stop: 08/30/18 20:59 Last Infusion: 08/30/18 21:14 Dose: 0 mls/hr Admin: 08/30/18 20:14 Dose: 1,000 mls/hr Meclizine HCl (Antivert) 25 mg PO NOW ONE Stop: 08/30/18 20:28 Last Admin: 08/30/18 21:00 Dose: 25 mg Vital Signs - 8 hr 08/30/18 18:39 08/30/18 20:17 08/30/18 21:00 Temperature 98.8 F 97.6 F Pulse Rate 93 H 72 69 Respiratory Rate 18 16 16 Blood Pressure 125/85 Blood Pressure [Left Arm] 110/70 117/62 Pulse Oximetry 96 100 98 08/30/18 21:22 Temperature 97.8 F Pulse Rate 67 Respiratory Rate 16 Blood Pressure Blood Pressure [Left Arm] 103/60 Pulse Oximetry 97 MDM - Weakness <Annabel Jimenez PA-C - Last Filed: 08/30/18 22:27> Lab Data Attestation: I reviewed the patient's lab results. Result diagrams: 08/30/18 20:10 08/30/18 20:10 Lab Results 08/30/18 08/30/18 08/30/18 Range/Units 20:10 20:10 20:10 WBC 7.8 (4.5-11.0) X10^3/uL RBC 4.69 (4.0-5.2) X10^6/uL Hgb 13.4 (12.0-16.0) g/dL Hct 39.8 (36-46) % MCV 84.9 (80-100) fL MCH 28.5 (26-34) PG MCHC 33.6 (30-36) % RDW 16.2 H (11.6-14.8) % Plt Count 164 (150-400) X10^3/uL Neut % (Auto) 72.9 (50-75) % Lymph % (Auto) 16.4 L (25-40) % [place] % (Auto) 8.5 (3-14) % Eos % (Auto) 1.9 L (2-4) % Baso % (Auto) 0.3 (0-2) % Neut # (Auto) 5700 (7974-9642) /uL PT 11.0 (10.1-12.7) SECONDS INR 1.0 (0.9-1.3) APTT 25 L (26.4-36.2) SECONDS Sodium 140 (137-145) mmol/L Potassium 3.4 (3.4-5.1) mmol/L Chloride 101 (98-107) mmol/L Carbon Dioxide 28 (22-32) mmol/L BUN 18 H (7-17) mg/dL Creatinine 0.60 (0.52-1.04) mg/dL Estimated GFR > 60.0 (>60) mL/min BUN/Creatinine Ratio 30.0 H (6-22) Glucose 100 (70-100) mg/dL Calcium 8.5 (8.4-10.2) mg/dL Total Bilirubin 0.5 (0.2-1.3) mg/dL AST 61 H (14-36) IU/L ALT 69 H (9-52) IU/L Alkaline Phosphatase 80 (38-126) U/L Total Protein 7.3 (6.3-8.2) g/dL Albumin 4.3 (3.5-5.0) g/dL Globulin 3.0 (1.7-4.1) g/dL Albumin/Globulin Ratio 1.4 (1.0-2.8) Lipase 64 (23-300) U/L Urine Dip Bedside Urine Glucose Negative Bedside Urine Bilirubin + 1 Bedside Urine Ketone - Negative Urine Specific [place] 1.020 Bedside Urine Occult Blood - Negative Bedside Urine pH 6.0 Bedside Urine Protein - Negative Bedside Urine Urobilinogen - Negative Bedside Urine Nitrite - Negative Bedside Urine Leukocytes - Negative Esterase ECG Data Attestation: I personally reviewed and interpreted this ECG as follows: ( normal sinus rhythm with bundle branch pattern, no acute change) Prior ECG tracings: available for review <Willie Miller DO - Last Filed: 08/31/18 02:25> Lab Data Lab Results 08/30/18 08/30/18 08/30/18 Range/Units 20:10 20:10 20:10 WBC 7.8 (4.5-11.0) X10^3/uL RBC 4.69 (4.0-5.2) X10^6/uL Hgb 13.4 (12.0-16.0) g/dL Hct 39.8 (36-46) % MCV 84.9 (80-100) fL MCH 28.5 (26-34) PG MCHC 33.6 (30-36) % RDW 16.2 H (11.6-14.8) % Plt Count 164 (150-400) X10^3/uL Neut % (Auto) 72.9 (50-75) % Lymph % (Auto) 16.4 L (25-40) % [place] % (Auto) 8.5 (3-14) % Eos % (Auto) 1.9 L (2-4) % Baso % (Auto) 0.3 (0-2) % Neut # (Auto) 5700 (6988-3190) /uL PT 11.0 (10.1-12.7) SECONDS INR 1.0 (0.9-1.3) APTT 25 L (26.4-36.2) SECONDS Sodium 140 (137-145) mmol/L Potassium 3.4 (3.4-5.1) mmol/L Chloride 101 (98-107) mmol/L Carbon Dioxide 28 (22-32) mmol/L BUN 18 H (7-17) mg/dL Creatinine 0.60 (0.52-1.04) mg/dL Estimated GFR > 60.0 (>60) mL/min BUN/Creatinine Ratio 30.0 H (6-22) Glucose 100 (70-100) mg/dL Calcium 8.5 (8.4-10.2) mg/dL Total Bilirubin 0.5 (0.2-1.3) mg/dL AST 61 H (14-36) IU/L ALT 69 H (9-52) IU/L Alkaline Phosphatase 80 (38-126) U/L Total Protein 7.3 (6.3-8.2) g/dL Albumin 4.3 (3.5-5.0) g/dL Globulin 3.0 (1.7-4.1) g/dL Albumin/Globulin Ratio 1.4 (1.0-2.8) Lipase 64 (23-300) U/L Urine Dip Bedside Urine Glucose Negative Bedside Urine Bilirubin + 1 Bedside Urine Ketone - Negative Urine Specific [place] 1.020 Bedside Urine Occult Blood - Negative Bedside Urine pH 6.0 Bedside Urine Protein - Negative Bedside Urine Urobilinogen - Negative Bedside Urine Nitrite - Negative Bedside Urine Leukocytes - Negative Esterase Discharge Plan Departure Patient Disposition: Home Clinical Impression: Vertigo, Generalized weakness Discharge Date/Time: 08/30/18 22:10 Interventions: ED Discharge Assessment Last Done: 08/30/18 22:09 Instructions: DI for Vertigo Activity Restrictions/Additional Instructions: There were no acute problems found on your testing today to explain all of your symptoms however your exam today seems most consistent with a vertigo. 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 Remember this can make you sleepy and not to drive (you should not drive until your dizziness has resolved). You should remain off work tomorrow and rest, eat and drink normally. You should call your PCP 1st thing on Sunday and arrange for follow -up on Sunday if you're not feeling better by then. Please return as we talked about if you have any acutely worsening symptoms over the weekend , or new symptoms such as localized weakness, vision change, or fever or vomiting. Prescriptions: New meclizine [Motion Relief (meclizine)] 25 mg tablet 25 mg PO Q4-6H PRN (Reason: dizziness or vertigo) Qty: 14 RF: 0 No Action cetirizine [All Day Allergy (cetirizine)] 10 mg tablet 10 mg PO DAILY Qty: 90 RF: 3 Vitamin D3 See Patient Comments .ROUTE .COMPLEX RF: 0 Potassium See Patient Comments .ROUTE .COMPLEX RF: 0 varicella-zoster [id number] (PF) [Shingrix (PF)] 50 mcg/0.5 mL suspension for reconstitution 50 mcg IM ONCE Qty: 1 RF: 1 fluticasone 16 GM spray,suspension Intranasal BID Qty: 16 RF: 0 fluconazole [Diflucan] 150 MG tablet 150 mg PO AMINS Qty: 2 RF: 1 albuterol sulfate [Proventil HFA] 90 MCG/PUFF HFA aerosol inhaler 2 puff INH Q4-6HP PRNQty: 1 RF: 3 pantoprazole 40 mg tablet,delayed release (DR/EC) 40 mg PO QDAY Qty: 30 RF: 6 clonazepam 1 mg tablet 1 mg PO HSP PRN (Reason: anxiety) Qty: 30 RF: 3 citalopram 20 mg tablet 20 mg PO BID Qty: 60 RF: 6 thyroid (pork) [Cabot Thyroid] 90 mg tablet 1 tab PO QDAY Qty: 30 RF: 3 mirtazapine 15 mg tablet See Label Instructions PO BEDTIME PRN (Reason: for sleep) Qty: 45 RF: 3 furosemide [Lasix] 20 mg tablet 20 mg PO DAILY PRN (Reason: edema) Qty: 30 RF: 0 metolazone 2.5 mg tablet 2.5 mg PO DAILY Qty: 30 RF: 0 pramipexole 0.125 mg tablet 3 tab PO HS Qty: 90 RF: 6 Referrals: Ani Mckeon PA-C [Primary Care Provider] - <Willie Miller DO - Last Filed: 08/31/18 02:25> Cosign ED Attending Vasile Attestation: I was immediately available in the department for consultation. Documentation has been reviewed. I agree with assessment and plan.
[2018-08-30] MEDS: SODIUM CHLORIDE 0.9% 1,000 ML 1000 ML IV (20:14)
[2018-08-30 20:16] LABS: Add Manual Diff / Slide Review NO; Basophils Percent Auto 0.3 % (0-2); Eosinophils Percent Auto 1.9 % (2-4); Hematocrit 39.8 % (36-46); Hemoglobin 13.4 g/dL (12.0-16.0); Lymphocytes Percent Auto 16.4 % (25-40); Mean Corpuscular HGB Conc 33.6 % (30-36); Mean Corpuscular Hemoglobin 28.5 PG (26-34); Mean Corpuscular Volume 84.9 fL (80-100); Monocytes Percent Auto 8.5 % (3-14); Neutrophils Absolute Auto 5700 /uL (3000-5900); Neutrophils Percent Auto 72.9 % (50-75); Platelet Count 164 X10^3/uL (150-400); Red Blood Cell Count 4.69 X10^6/uL (4.0-5.2); Red Cell Distribution Width 16.2 % (11.6-14.8); White Blood Cell Count 7.8 X10^3/uL (4.5-11.0)
[2018-08-30 20:17] VITALS: BP 110/70; PULSE 72; RESP 16; TEMP 36.4; O2SAT 100
[2018-08-30 20:26] LABS: PTT Partial Thromboplastin Tim 25 SECONDS (26.4-36.2)
[2018-08-30 20:27] LABS: Alanine Aminotransferase 69 IU/L (9-52); Albumin 4.3 g/dL (3.5-5.0); Albumin Globulin Ratio 1.4 (1.0-2.8); Alkaline Phosphatase 80 U/L (38-126); Aspartate Aminotransferase 61 IU/L (14-36); Bilirubin Total 0.5 mg/dL (0.2-1.3); Blood Urea Nitrogen 18 mg/dL (7-17); Calcium 8.5 mg/dL (8.4-10.2); Carbon Dioxide 28 mmol/L (22-32); Chloride 101 mmol/L (98-107); Estimated Glomerular Filt Rate > 60.0 mL/min (>60); Glucose 100 mg/dL (70-100); HEMOLYSIS 85 (0-50); Lipase 64 U/L (23-300); Sodium 140 mmol/L (137-145); Total Protein 7.3 g/dL (6.3-8.2)
[2018-08-30 20:28] LABS: Potassium 3.4 mmol/L (3.4-5.1)
[2018-08-30 21:00] VITALS: BP 117/62; PULSE 69; RESP 16; O2SAT 98
[2018-08-30] MEDS: MECLIZINE HCL 12.5 MG TABLET 25 MG PO (21:00)
[2018-08-30 21:22] VITALS: BP 103/60; PULSE 67; RESP 16; TEMP 36.6; O2SAT 97
== END 2018-08-30 22:10 | disposition home or self-care (01) ==
PROVIDERS: Emergency Medicine; Emergency Provider Internal Medicine; Family Provider Physician Assistant; PCP Physician Assistant
DX: R42 Dizziness and giddiness (principal); R53.1 Weakness
CPT/HCPCS: 36591; 80053; 81003; 83690; 85025; 85610; 85730; 93005; 93010; 96360; 99283; 99284

== ENCOUNTER 2018-09-28 13:14 | Emergency (ER) | payer OTHER, MEDICAID, SELFPAY ==
[2018-09-28 13:18] VITALS: BP 137/92; PULSE 68; RESP 16; TEMP 36.3; O2SAT 99; BMI 41.3
--- NOTE | 2018-09-28 14:07 | ED_ITS ---
HPI - Abdominal Pain <SOLEDAD Taylor - Last Filed: 09/28/18 22:03> General Chief Complaint: Abdominal Pain Stated Complaint: NAUSEA,VOMITTING,ABD PAIN Time Seen by Provider: 09/28/18 14:06 Source: patient Mode of arrival: ambulatory Limitations: no limitations History of Present Illness HPI narrative: 53-year-old female with history of recent gastric bypass surgery and is a former smoker here for complaint of left upper quadrant pain and epigastric pain that started earlier today. She states that she drank a cup of coffee this morning and she started having symptoms this shortly afterwards. She reports that she had a few episodes of vomiting shortly after this timeframe. She states her last bowel movement was earlier today and was unremarkable. She also reports having decreased amount of flatus today. She denies any fevers or chills. No trauma to the abdominal area. She denies any urinary symptoms. She denies any stressors or relievers of her discomfort MD complaint: abdominal pain Related Data Home Medications Medication Instructions Recorded Confirmed Potassium See Label Instructions .ROUTE 08/05/18 08/05/18 .COMPLEX Vitamin D3 See Label Instructions .ROUTE 08/05/18 08/05/18 .COMPLEX Previous Rx's Medication Instructions Recorded fluticasone 0 INTRANASAL BID #16 gm 12/26/16 fluconazole [Diflucan] 150 mg PO AMINS #2 tab 05/15/17 albuterol sulfate [Proventil HFA] 2 puff INH Q4-6HP PRN #1 inh 12/03/17 pantoprazole 40 mg tablet,delayed 40 mg PO QDAY #30 tab 03/11/18 release cetirizine 10 mg tablet 10 mg PO DAILY #90 tab 05/16/18 clonazepam 1 mg tablet 1 mg PO HSP PRN #30 tab 06/04/18 citalopram 20 mg PO BID #60 tab 06/17/18 thyroid (pork) [[place] Thyroid] 1 tab PO QDAY #30 tab 06/19/18 mirtazapine 15 mg tablet See Label Instructions PO BEDTIME 07/03/18 PRN #45 tab varicella-zoster glycoE [id number] 50 mcg IM ONCE #1 each 08/05/18 adj(PF) 50 mcg/0.5 mL IM susp, kit metolazone 2.5 mg tablet 2.5 mg PO DAILY #30 tab 08/13/18 pramipexole 3 tab PO HS #90 tab 08/26/18 meclizine [Motion Relief 25 mg PO Q4-6H PRN #14 tab 08/30/18 (meclizine)] furosemide 20 mg tablet 20 mg PO DAILY PRN #30 tab 09/20/18 potassium chloride ER 10 mEq 10 meq PO BID #60 tab 09/25/18 tablet,extended release hydrocodone-acetaminophen [[place]] 1 tab PO Q4-6H PRN #10 tab 09/28/18 ondansetron 4 mg PO Q6-8H PRN #12 tab 09/28/18 Allergies Allergy/AdvReac Type Severity Reaction Status Date / Time animal dander [ANIMAL DANDER] Allergy Intermediate ITCHY Verified 09/28/18 13:23 WATERY EYES AND SNEEZING grass pollen AdvReac Intermediate itching Verified 09/28/18 13:23 house dust AdvReac Intermediate itching Verified 09/28/18 13:23 Review of Systems <SOLEDAD Taylor - Last Filed: 09/28/18 22:03> Review of Systems All systems reviewed & are unremarkable except as noted in HPI and below Constitutional Denies chills, Denies fever(s), Denies lethargy and Denies weakness Eyes Denies change in vision, Denies eye discharge, Denies irritation and Denies loss of vision ENT Ears, Nose, Mouth, and Throat: Denies change in voice, Denies neck pain and Denies sore throat Cardiovascular Denies chest pain, Denies irregular heart rhythm, Denies lightheadedness, Denies palpitations, Denies dyspnea, Denies dyspnea on exertion and Denies orthopnea Respiratory Denies cough, Denies dyspnea, Denies dyspnea on exertion and Denies wheezing Gastrointestinal Gastrointestinal: Reports abdominal pain and Reports vomiting Genitourinary Denies hematuria, Denies flank pain, Denies urinary incontinence and Denies urinary urgency Musculoskeletal Denies neck pain Integumentary/Breasts Denies pruritus, Denies erythema, Denies rash and Denies wounds Neurologic Denies confusion, Denies loss of vision and Denies weakness Psychiatric Denies anxiety, Denies confusion, Denies depression, Denies homicidal ideation and Denies suicidal ideation Endocrine Denies palpitations Hematologic/Lymphatic Denies easy bruising Allergic/Immunologic Denies wheezing Exam <SOLEDAD Taylor - Last Filed: 09/28/18 22:03> Initial Vital Signs Initial Vital Signs: Vital Signs Temperature 97.3 F L 09/28/18 13:18 Pulse Rate 68 09/28/18 13:18 Respiratory Rate 16 09/28/18 13:18 Blood Pressure 137/92 H 09/28/18 13:18 Pulse Oximetry 99 09/28/18 13:18 Const General: cooperative and well developed Nutritional Appearance: well nourished Orientation: alert, awake, oriented x3 and not confused [facility] Mouth: oral mucosae normal and moist mucous membranes Eyes Conjunctivae: conjunctivae normal Sclera: sclerae normal Pupils: PERRL EOM: EOM intact bilaterally Resp Effort & Inspection: normal respiratory effort, able to speak in complete sentences, no respiratory distress and no use of accessory muscles Auscultation: clear to auscultation bilaterally, no rales, no rhonchi and no wheezes Cardio Rate: regular rate Rhythm: regular rhythm Heart Sounds: no click, no gallops, no murmurs and no rubs GI Inspection: non-distended Palpation: soft, no hepatosplenomegaly, No guarding, No pulsatile mass and tender Auscultation: normal bowel sounds General: No CVA tenderness Skin General: no rashes or lesions noted, No jaundice and No petechiae Neuro General: alert, oriented x3, gait normal and no focal motor deficits Speech: speech normal <Akshat Mercado DO - Last Filed: 09/29/18 07:05> Initial Vital Signs Initial Vital Signs: Vital Signs Temperature 97.3 F L 09/28/18 13:18 Pulse Rate 68 09/28/18 13:18 Respiratory Rate 16 09/28/18 13:18 Blood Pressure 137/92 H 09/28/18 13:18 Pulse Oximetry 99 09/28/18 13:18 Course <SOLEDAD Taylor - Last Filed: 09/28/18 22:03> Orders Ordered: Discontinued Medications Hydromorphone HCl (Dilaudid) 1 mg IV NOW ONE Stop: 09/28/18 16:03 Last Admin: 09/28/18 16:13 Dose: 1 mg Sodium Chloride (Normal Saline 0.9%) 1,000 mls @ 1,000 mls/hr IV BOLUS ONE Stop: 09/28/18 15:26 Last Infusion: 09/28/18 16:25 Dose: 0 mls/hr Admin: 09/28/18 14:51 Dose: 1,000 mls/hr Lactated Ringer's (Lactated Ringers) 1,000 mls @ 1,000 mls/hr IV BOLUS ONE Stop: 09/28/18 17:31 Last Infusion: 09/28/18 17:58 Dose: 0 mls/hr Admin: 09/28/18 16:36 Dose: 1,000 mls/hr Ondansetron HCl (Zofran) 4 mg IV NOW ONE Stop: 09/28/18 14:28 Last Admin: 09/28/18 14:51 Dose: 4 mg Vital Signs - 8 hr 09/28/18 15:08 09/28/18 16:16 09/28/18 17:49 Pulse Rate 61 66 60 Respiratory Rate 17 15 17 Blood Pressure [Right Arm] 105/67 113/68 99/61 Pulse Oximetry 99 99 97 <Akshat Mercado DO - Last Filed: 09/29/18 07:05> Orders Ordered: Discontinued Medications Hydromorphone HCl (Dilaudid) 1 mg IV NOW ONE Stop: 09/28/18 16:03 Last Admin: 09/28/18 16:13 Dose: 1 mg Sodium Chloride (Normal Saline 0.9%) 1,000 mls @ 1,000 mls/hr IV BOLUS ONE Stop: 09/28/18 15:26 Last Infusion: 09/28/18 16:25 Dose: 0 mls/hr Admin: 09/28/18 14:51 Dose: 1,000 mls/hr Lactated Ringer's (Lactated Ringers) 1,000 mls @ 1,000 mls/hr IV BOLUS ONE Stop: 09/28/18 17:31 Last Infusion: 09/28/18 17:58 Dose: 0 mls/hr Admin: 09/28/18 16:36 Dose: 1,000 mls/hr Ondansetron HCl (Zofran) 4 mg IV NOW ONE Stop: 09/28/18 14:28 Last Admin: 09/28/18 14:51 Dose: 4 mg Vital Signs - 8 hr 09/28/18 15:08 09/28/18 16:16 09/28/18 17:49 Pulse Rate 61 66 60 Respiratory Rate 17 15 17 Blood Pressure [Right Arm] 105/67 113/68 99/61 Pulse Oximetry 99 99 97 MDM - Abdominal Pain <SOLEDAD Taylor - Last Filed: 09/28/18 22:03> Lab Data Result diagrams: 09/28/18 14:35 09/28/18 14:35 Lab Results 09/28/18 09/28/18 09/28/18 Range/Units 14:35 14:35 Unknown WBC 5.3 (4.5-11.0) X10^3/uL RBC 4.69 (4.0-5.2) X10^6/uL Hgb 13.0 (12.0-16.0) g/dL Hct 39.9 (36-46) % MCV 85.2 (80-100) fL MCH 27.8 (26-34) PG MCHC 32.6 (30-36) % RDW 17.0 H (11.6-14.8) % Plt Count 180 (150-400) X10^3/uL Neut % (Auto) 70.5 (50-75) % Lymph % (Auto) 20.6 L (25-40) % [place] % (Auto) 6.5 (3-14) % Eos % (Auto) 1.8 L (2-4) % Baso % (Auto) 0.6 (0-2) % Neut # (Auto) 3700 (0663-1993) /uL Sodium 145 (137-145) mmol/L Potassium 3.2 L (3.4-5.1) mmol/L Chloride 103 (98-107) mmol/L Carbon Dioxide 32 (22-32) mmol/L BUN 11 (7-17) mg/dL Creatinine 0.60 (0.52-1.04) mg/dL Estimated GFR > 60.0 (>60) mL/min BUN/Creatinine Ratio 18.3 (6-22) Glucose 90 (70-100) mg/dL Calcium 9.1 (8.4-10.2) mg/dL Total Bilirubin 0.5 (0.2-1.3) mg/dL AST 27 (14-36) IU/L ALT 37 (9-52) IU/L Alkaline Phosphatase 87 (38-126) U/L Total Protein 7.0 (6.3-8.2) g/dL Albumin 4.1 (3.5-5.0) g/dL Globulin 2.9 (1.7-4.1) g/dL Albumin/Globulin Ratio 1.4 (1.0-2.8) Lipase 45 (23-300) U/L Urine RBC 0-1/hpf (0-5/HPF) Urine WBC None seen (0-5/HPF) Ur Squamous Epith Cells 0-1 /hpf Urine Bacteria None seen (None) Urine Mucus 1+ H (Negative) Ur Culture Indicated? Not Reportable Micro UA Comment Not Reportable Point of care testing: Point of Care Testing Test Results Negative Urine Dip Bedside Urine Glucose Negative Bedside Urine Bilirubin ++ 2 Bedside Urine Ketone +/- 5 Urine Specific [place] 1.030 Bedside Urine Occult Blood - Negative Bedside Urine pH 6.0 Bedside Urine Protein + 30 Bedside Urine Urobilinogen +/- 1mg Bedside Urine Nitrite - Negative Bedside Urine Leukocytes - Negative Esterase Imaging Data CT scan - abdomen: Radiologist's impression: [address] [place] [id number] Scan Report Signed Patient: Minnie Price [facility]#: [id number] : 1965Acct:[id number] Age/Sex: 53 / FDate of Service: 09/28/18 Loc: ED Accession Number: [id number] Procedure: CT abdomen pelvis w con Ordering Provider: Randy Mirza PROCEDURE: CT ABDOMEN PELVIS W CON INDICATIONS: Recent gastric bypass surgery pain into epigastric/luq TECHNIQUE: After the administration of intravenous contrast, 5 mm thick sections acquired from the diaphragm to the symphysis. 5 mm coronal and sagittal reformats were acquired. For radiation dose reduction, the following was used: automated exposure control, adjustment of mA and/or kV according to patient size. COMPARISON: [facility], CT, CT ABDOMEN PELVIS W CON, 08/10/2018, 23:23. FINDINGS: Image quality: Excellent. ABDOMEN: Lung bases: Lung bases are clear. Heart size is normal. Solid organs: Liver is normal in size and enhancement. Hepatic contour is mildly nodular. Gallbladder is surgically absent. Biliary system is non dilated. Pancreas enhances normally. Spleen is normal in size and enhancement. No adrenal nodules. Kidneys demonstrate normal size and enhancement, without hydronephrosis. Peritoneum and bowel: Gastric bypass has been performed. There is moderate debris within the pouch. Additionally, there is moderate narrowing of the pouch-alimentary limb anastomosis. No free fluid or air. Normal appendix. Small bowel and colon are within normal limits. Nodes and vessels: No retroperitoneal or mesenteric adenopathy by size criteria. Aorta and inferior vena cava are normal in size. Miscellaneous: No ventral hernias. PELVIS: Genitourinary: Bladder wall thickness is normal. Intrauterine device. Miscellaneous: No inguinal hernias or adenopathy. Bones: No suspicious bony lesions. No vertebral body compression fractures. IMPRESSION: 1. Status post gastric bypass surgery, with moderate narrowing at the pouch- alimentary limb anastomosis, with consequent moderate retained debris within the pouch. 2. Normal appendix. Dictated by: Jayme Oakes M.D. on 09/28/2018 at 15:58 Approved by: Jayme Oakes M.D. on 09/28/2018 at 16:03 MDM Narrative Medical decision making narrative: CBC and Chem panel were obtained were unremarkable other than a mild kalemia. Lipase was normal. She was given fluids and Zofran along with Dilaudid for discomfort which helped her symptoms in the emergency room. CT of the abdomen shows signs of narrowing of the pouch and also debris inside the pouch of her gastric bypass. No other acute findings are seen on CT. Discussed case with Dr. Ortiz bariatric surgeon from who performed the surgery and states that watchful waiting at this point in time as her vitals are normal and her laboratory results are unremarkable. She recommends that she gets placed on a fluid diet until next week and when they can follow up with her. Patient is tolerating p.o. fluids. She did not recommend giving potassium chloride at this timeframe a did recommend given her a L of LR. She is prescribed [place] for discomfort. She is also prescribed Zofran to help with the nausea. For any worsening symptoms return to the emergency room. <Akshat Mercado, - Last Filed: 09/29/18 07:05> Lab Data Lab Results 09/28/18 09/28/18 09/28/18 Range/Units 14:35 14:35 Unknown WBC 5.3 (4.5-11.0) X10^3/uL RBC 4.69 (4.0-5.2) X10^6/uL Hgb 13.0 (12.0-16.0) g/dL Hct 39.9 (36-46) % MCV 85.2 (80-100) fL MCH 27.8 (26-34) PG MCHC 32.6 (30-36) % RDW 17.0 H (11.6-14.8) % Plt Count 180 (150-400) X10^3/uL Neut % (Auto) 70.5 (50-75) % Lymph % (Auto) 20.6 L (25-40) % [place] % (Auto) 6.5 (3-14) % Eos % (Auto) 1.8 L (2-4) % Baso % (Auto) 0.6 (0-2) % Neut # (Auto) 3700 (2672-9020) /uL Sodium 145 (137-145) mmol/L Potassium 3.2 L (3.4-5.1) mmol/L Chloride 103 (98-107) mmol/L Carbon Dioxide 32 (22-32) mmol/L BUN 11 (7-17) mg/dL Creatinine 0.60 (0.52-1.04) mg/dL Estimated GFR > 60.0 (>60) mL/min BUN/Creatinine Ratio 18.3 (6-22) Glucose 90 (70-100) mg/dL Calcium 9.1 (8.4-10.2) mg/dL Total Bilirubin 0.5 (0.2-1.3) mg/dL AST 27 (14-36) IU/L ALT 37 (9-52) IU/L Alkaline Phosphatase 87 (38-126) U/L Total Protein 7.0 (6.3-8.2) g/dL Albumin 4.1 (3.5-5.0) g/dL Globulin 2.9 (1.7-4.1) g/dL Albumin/Globulin Ratio 1.4 (1.0-2.8) Lipase 45 (23-300) U/L Urine RBC 0-1/hpf (0-5/HPF) Urine WBC None seen (0-5/HPF) Ur Squamous Epith Cells 0-1 /hpf Urine Bacteria None seen (None) Urine Mucus 1+ H (Negative) Ur Culture Indicated? Not Reportable Micro UA Comment Not Reportable Point of care testing: Point of Care Testing Test Results Negative Urine Dip Bedside Urine Glucose Negative Bedside Urine Bilirubin ++ 2 Bedside Urine Ketone +/- 5 Urine Specific [place] 1.030 Bedside Urine Occult Blood - Negative Bedside Urine pH 6.0 Bedside Urine Protein + 30 Bedside Urine Urobilinogen +/- 1mg Bedside Urine Nitrite - Negative Bedside Urine Leukocytes - Negative Esterase Discharge Plan Departure Patient Disposition: Home Clinical Impression: Abdominal pain Discharge Date/Time: 09/28/18 18:22 Interventions: ED Discharge Assessment Last Done: 09/28/18 18:21 Instructions: DI for Abdominal Pain-Adult Activity Restrictions/Additional Instructions: Other than minor of low potassium level laboratory results today were unremarkable. CT shows some narrowing of the pouch and some debris inside the pouch which is most likely causing your discomfort. Discussed case with bariatric surgery [facility] who recommends liquid diet for the next few days. Follow- up with bariatric surgery next week call their office to schedule follow-up appointment. Use [place] as directed for any discomfort. Continue to use you are already prescribed medications as directed. Zofran is prescribed to help with nausea vomiting also use as directed. For any worsening symptoms return to the emergency room. Prescriptions: New hydrocodone-acetaminophen [[place]] 5-325 mg tablet 1 tab PO Q4-6H PRN (Reason: pain) Qty: 10 RF: 0 ondansetron 4 mg tablet,disintegrating 4 mg PO Q6-8H PRN (Reason: nausea and vomiting) Qty: 12 RF: 0 No Action cetirizine [All Day Allergy (cetirizine)] 10 mg tablet 10 mg PO DAILY Qty: 90 RF: 3 Vitamin D3 See Patient Comments .ROUTE .COMPLEX RF: 0 Potassium See Patient Comments .ROUTE .COMPLEX RF: 0 varicella-zoster [id number] (PF) [Shingrix (PF)] 50 mcg/0.5 mL suspension for reconstitution 50 mcg IM ONCE Qty: 1 RF: 1 fluticasone 16 GM spray,suspension Intranasal BID Qty: 16 RF: 0 fluconazole [Diflucan] 150 MG tablet 150 mg PO AMINS Qty: 2 RF: 1 albuterol sulfate [Proventil HFA] 90 MCG/PUFF HFA aerosol inhaler 2 puff INH Q4-6HP PRNQty: 1 RF: 3 pantoprazole 40 mg tablet,delayed release (DR/EC) 40 mg PO QDAY Qty: 30 RF: 6 clonazepam 1 mg tablet 1 mg PO HSP PRN (Reason: anxiety) Qty: 30 RF: 3 citalopram 20 mg tablet 20 mg PO BID Qty: 60 RF: 6 thyroid (pork) [[place] Thyroid] 90 mg tablet 1 tab PO QDAY Qty: 30 RF: 3 mirtazapine 15 mg tablet See Label Instructions PO BEDTIME PRN (Reason: for sleep) Qty: 45 RF: 3 metolazone 2.5 mg tablet 2.5 mg PO DAILY Qty: 30 RF: 0 pramipexole 0.125 mg tablet 3 tab PO HS Qty: 90 RF: 6 furosemide [Lasix] 20 mg tablet 20 mg PO DAILY PRN (Reason: edema) Qty: 30 RF: 0 potassium chloride 10 mEq tablet extended release 10 meq PO BID Qty: 60 RF: 3 meclizine [Motion Relief (meclizine)] 25 mg tablet 25 mg PO Q4-6H PRN (Reason: dizziness or vertigo) Qty: 14 RF: 0 Referrals: Ani Mckeon PA-C [Primary Care Provider] - <Akshat Mercado DO - Last Filed: 09/29/18 07:05> Cosign ED Attending Vasile Attestation: I was available for consultation during this patient's emergency department encounter
--- NOTE | 2018-09-28 14:28 | DI.CT.S_ITS ---
PROCEDURE: CT ABDOMEN PELVIS W CON INDICATIONS: Recent gastric bypass surgery pain into epigastric/luq TECHNIQUE: After the administration of intravenous contrast, 5 mm thick sections acquired from the diaphragm to the symphysis. 5 mm coronal and sagittal reformats were acquired. For radiation dose reduction, the following was used: automated exposure control, adjustment of mA and/or kV according to patient size. COMPARISON: [facility], CT, CT ABDOMEN PELVIS W CON, 08/10/2018, 23:23. FINDINGS: Image quality: Excellent. ABDOMEN: Lung bases: Lung bases are clear. Heart size is normal. Solid organs: Liver is normal in size and enhancement. Hepatic contour is mildly nodular. Gallbladder is surgically absent. Biliary system is non dilated. Pancreas enhances normally. Spleen is normal in size and enhancement. No adrenal nodules. Kidneys demonstrate normal size and enhancement, without hydronephrosis. Peritoneum and bowel: Gastric bypass has been performed. There is moderate debris within the pouch. Additionally, there is moderate narrowing of the pouch-alimentary limb anastomosis. No free fluid or air. Normal appendix. Small bowel and colon are within normal limits. Nodes and vessels: No retroperitoneal or mesenteric adenopathy by size criteria. Aorta and inferior vena cava are normal in size. Miscellaneous: No ventral hernias. PELVIS: Genitourinary: Bladder wall thickness is normal. Intrauterine device. Miscellaneous: No inguinal hernias or adenopathy. Bones: No suspicious bony lesions. No vertebral body compression fractures. IMPRESSION: 1. Status post gastric bypass surgery, with moderate narrowing at the pouch-alimentary limb anastomosis, with consequent moderate retained debris within the pouch. 2. Normal appendix. Dictated by: Jayme Oakes M.D. on 09/28/2018 at 15:58 Approved by: Jayme Oakes M.D. on 09/28/2018 at 16:03
[2018-09-28 14:49] LABS: Add Manual Diff / Slide Review NO; Basophils Percent Auto 0.6 % (0-2); Eosinophils Percent Auto 1.8 % (2-4); Hematocrit 39.9 % (36-46); Lymphocytes Percent Auto 20.6 % (25-40); Mean Corpuscular HGB Conc 32.6 % (30-36); Mean Corpuscular Hemoglobin 27.8 PG (26-34); Mean Corpuscular Volume 85.2 fL (80-100); Monocytes Percent Auto 6.5 % (3-14); Neutrophils Absolute Auto 3700 /uL (3000-5900); Neutrophils Percent Auto 70.5 % (50-75); Platelet Count 180 X10^3/uL (150-400); Red Blood Cell Count 4.69 X10^6/uL (4.0-5.2); White Blood Cell Count 5.3 X10^3/uL (4.5-11.0)
[2018-09-28] MEDS: ONDANSETRON 4 MG/2 ML INJ IV (14:51)
[2018-09-28] MEDS: SODIUM CHLORIDE 0.9% 1,000 ML 1000 ML IV (14:51)
[2018-09-28 14:59] LABS: Alanine Aminotransferase 37 IU/L (9-52); Albumin 4.1 g/dL (3.5-5.0); Albumin Globulin Ratio 1.4 (1.0-2.8); Alkaline Phosphatase 87 U/L (38-126); Aspartate Aminotransferase 27 IU/L (14-36); BUN Creatinine Ratio 18.3 (6-22); Bilirubin Total 0.5 mg/dL (0.2-1.3); Blood Urea Nitrogen 11 mg/dL (7-17); Calcium 9.1 mg/dL (8.4-10.2); Carbon Dioxide 32 mmol/L (22-32); Chloride 103 mmol/L (98-107); Estimated Glomerular Filt Rate > 60.0 mL/min (>60); Globulin 2.9 g/dL (1.7-4.1); Glucose 90 mg/dL (70-100); HEMOLYSIS < 15 (0-50); Lipase 45 U/L (23-300); Potassium 3.2 mmol/L (3.4-5.1); Sodium 145 mmol/L (137-145)
[2018-09-28 15:08] VITALS: BP 105/67; PULSE 61; RESP 17; O2SAT 99
[2018-09-28 15:40] LABS: Bacteria Urine None Seen; WBC Urine None Seen (0-5/HPF)
[2018-09-28 15:50] LABS: Mucus Urine 1+ (Negative)
[2018-09-28 15:51] LABS: RBC Urine 0-1/HPF (0-5/HPF); Squamous Epithelial Cell Urine 0-1 /HPF
[2018-09-28] MEDS: HYDROMORPHONE 1 MG INJ IV (16:13)
[2018-09-28 16:16] VITALS: BP 113/68; PULSE 66; RESP 15; O2SAT 99
[2018-09-28] MEDS: LACTATED RINGERS 1,000 ML 1000 ML IV (16:36)
[2018-09-28 17:49] VITALS: BP 99/61; PULSE 60; RESP 17; O2SAT 97
== END 2018-09-28 18:22 | disposition home or self-care (01) ==
PROVIDERS: Emergency Provider Nurse Practitioner Family; Family Provider Physician Assistant; PCP Physician Assistant
DX: R10.9 Unspecified abdominal pain (principal)
CPT/HCPCS: 36591; 74177; 80053; 81003; 81015; 81025; 83690; 85025; 96361; 96374; 96375; 99283; 99285; J1170; J2405

== ENCOUNTER 2018-10-30 21:07 | Emergency (ER) | payer OTHER, MEDICAID, SELFPAY ==
[2018-10-30 21:33] VITALS: BP 141/91; PULSE 69; RESP 16; TEMP 36.8; O2SAT 97; BMI 40.6
== END 2018-10-30 22:58 | disposition left against medical advice (07) ==
PROVIDERS: Emergency Provider Emergency Medicine; Family Provider Physician Assistant; PCP Physician Assistant
DX: R51 Headache (principal)
CPT/HCPCS: 99281; 99282

== ENCOUNTER → 2018-12-11 08:25 | Outpatient (CLI) | payer OTHER, MEDICAID, SELFPAY ==
--- NOTE | 2018-12-11 | DI.MG.S_ITS ---
BILATERAL DIGITAL SCREENING MAMMOGRAM 3D/2D WITH CAD: 12/11/2018 CLINICAL: Routine screening. Family history of breast cancer. Comparison is made to exams dated: 07/16/2017 mammogram, 12/06/2015 mammogram, and 09/14/2014 mammogram - [facility]. The tissue of both breasts is extremely dense, which lowers the sensitivity of mammography. Current study was also evaluated with a Computer Aided Detection (CAD) system. No significant masses, calcifications, or other findings are seen in either breast. There has been no significant interval change. IMPRESSION: NEGATIVE There is no mammographic evidence of malignancy. A 1 year screening mammogram is recommended. This exam was interpreted at Station ID: [id number]. NOTE: For mammograms, a report in lay terms will be sent to the patient. Approximately 15% of breast malignancies will not be visualized mammographically. In the management of a palpable breast mass, a negative mammogram must not discourage biopsy of a clinically suspicious lesion. Electronically Signed By: Lobito mejia/denisha:12/11/2018 09:30:14 copy to: Jarad Li letter sent: Normal Exam ACR BI-RADS Category 1: Negative [id number]
== END ==
PROVIDERS: Family Provider Physician Assistant; PCP Physician Assistant; Visit Provider Physician Assistant
DX: Z12.31 Encounter for screening mammogram for malignant neoplasm of breast (principal); Z80.3 Family history of malignant neoplasm of breast
CPT/HCPCS: 77063; 77067

== ENCOUNTER → 2019-01-25 18:28 | Outpatient (CLI) | payer OTHER, MEDICAID, SELFPAY ==
[2019-01-25 19:16] LABS: Influenza A and B by PCR Rapid Negative (Negative)
[2019-01-25 20:03] LABS: Monotest Negative (Negative)
== END ==
PROVIDERS: Family Provider Physician Assistant; PCP Physician Assistant; Visit Provider Physician Assistant
DX: R05 Cough (principal); R50.9 Fever, unspecified; R52 Pain, unspecified; J35.1 Hypertrophy of tonsils
CPT/HCPCS: 86318; 87070; 87400

== ENCOUNTER → 2019-02-25 10:18 | Outpatient (CLI) | payer OTHER, MEDICAID, SELFPAY ==
--- NOTE | 2019-02-25 10:30 | DI.RAD.S_ITS ---
PROCEDURE: XR SHOULDER RT MIN 2V INDICATIONS: RIGHT SHOULDER PAIN TECHNIQUE: 3 views of the shoulder were acquired. COMPARISON: None. FINDINGS: Bones: No fractures or dislocations. No suspicious bony lesions. Mild coracoclavicular and glenohumeral joint degeneration. Visualized ribs appear intact. Soft tissues: No suspicious soft tissue calcifications. IMPRESSION: Mild degenerative disease. Dictated by: Jessica Santiago M.D. on 02/25/2019 at 10:59 Approved by: Jessica Santiago M.D. on 02/25/2019 at 11:00
[2019-02-25 11:56] LABS: Thyroid Stimulating Hormone 0.79 uIU/mL (0.47-4.68)
== END ==
PROVIDERS: PCP Physician Assistant; Visit Provider Physician Assistant
DX: E03.9 Hypothyroidism, unspecified (principal); M25.511 Pain in right shoulder
CPT/HCPCS: 36415; 73030; 84443

== ENCOUNTER 2019-03-12 01:00 | Emergency (ER) | payer OTHER, MEDICAID, SELFPAY ==
[2019-03-12 01:21] VITALS: BP 117/51; PULSE 66; RESP 18; TEMP 36.8; O2SAT 98; BMI 36.9
--- NOTE | 2019-03-12 02:31 | ED.EXTPRO ---
HPI - Extremity Problem General Chief complaint: Extremity Problem,Nontraumatic Stated complaint: stabbing pain in left thigh/goes numb no control Time Seen by Provider: 03/12/19 01:53 Source: patient Mode of arrival: ambulatory Limitations: no limitations History of Present Illness HPI Narrative: Patient is a 53-year-old female who presents with left inguinal ligament pain. It is pinpoint worse with certain movements nonradiating does not migrate ongoing for the last number of weeks. She does not remember any specific injury. he has been taking Tylenol for it which sometimes helps. She can't take ibuprofen due to gastric bypass. She is worried about a blood clot. She does not take any estrogen no history of blood clots, no long trips. 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 She has no shortness of breath Onset (ago): week(s) Relieving factors: nothing Exacerbating factors: range of motion Associated symptoms: denies other symptoms Related Data Home Medications Medication Instructions Recorded Confirmed gabapentin 300 mg capsule 300 mg PO DAILY PRN 01/14/19 02/25/19 pantoprazole 40 mg tablet,delayed 40 mg PO .QOD tab 01/14/19 02/25/19 release Previous Rx's Medication Instructions Recorded albuterol sulfate [Proventil HFA] 2 puff INH Q4-6HP PRN #1 inh 12/03/17 cetirizine 10 mg tablet 10 mg PO DAILY #90 tab 05/16/18 varicella-zoster glycoE [id number] 50 mcg IM ONCE #1 each 08/05/18 adj(PF) 50 mcg/0.5 mL IM susp, kit pramipexole 3 tab PO HS #90 tab 08/26/18 ondansetron 4 mg PO Q6-8H PRN #12 tab 09/28/18 fluticasone propionate 50 1 spray INTRANASAL BID #15.8 gram 12/03/18 mcg/actuation nasal spray,suspension furosemide 20 mg tablet 40 mg PO DAILY PRN #60 tab 12/23/18 citalopram 20 mg PO BID #60 tab 01/14/19 clonazepam 1 mg tablet 1 mg PO HSP PRN #30 tab 01/14/19 levothyroxine 125 mcg tablet 125 mcg PO DAILY #45 tab 01/14/19 potassium chloride ER 10 mEq 10 meq PO BID #60 tab 01/20/19 tablet,extended release bupropion HCl 75 mg tablet 75 mg PO BID #120 tab 02/25/19 doxycycline monohydrate 100 mg 100 mg PO BID #28 cap 02/25/19 capsule Allergies Allergy/AdvReac Type Severity Reaction Status Date / Time animal dander [ANIMAL DANDER] Allergy Intermediate ITCHY Verified 03/12/19 01:20 WATERY EYES AND SNEEZING grass pollen AdvReac Intermediate itching Verified 03/12/19 01:20 house dust AdvReac Intermediate itching Verified 03/12/19 01:20 Review of Systems Review of Systems GENERAL: Denies chills,fever HEENT: Denies throat pain RESPIRATORY: Denies dyspnea, cough, wheezing CARDIOVASCULAR: Denies chest pain, palpitations GASTROINTESTINAL: Denies nausea, vomiting MUSCULOSKELETAL: See HPI SKIN: No rash, no laceration, no pruritus NEUROLOGIC: Denies weakness, dizziness, headache, numbness 8 point review of systems is negative except for those stated above and HPI PFSH Medical History Acquired hypothyroidism (Chronic ~2016) Allergic rhinitis (Chronic) Depression (Chronic Unknown) Obstructive sleep apnea (Chronic) Peripheral edema (Chronic ~2010) Restless leg (Chronic) Varicose veins of both lower extremities with complications (Chronic ~2010) Surgical History History of Vasu-en-Y gastric bypass (Resolved) History of thyroidectomy Status post breast lumpectomy Status post laparoscopic cholecystectomy Family History Sister Age: 55 History of breast cancer Social History marital status: household members: family occupational status: employed Smoking Status: Former smoker Tobacco: How many years used: 3 second hand exposure: No alcohol intake: current substance use type: does not use Type(s) of exercise: none Family History Sister Age: 55 History of breast cancer Social History marital status: household members: family occupational status: employed Smoking Status: Former smoker Tobacco: How many years used: 3 second hand exposure: No alcohol intake: current substance use type: does not use Type(s) of exercise: none Exam Initial Vital Signs Initial Vital Signs: Vital Signs Temperature 98.2 F 03/12/19 01:21 Pulse Rate 66 03/12/19 01:21 Respiratory Rate 18 03/12/19 01:21 Blood Pressure 117/51 L 03/12/19 01:21 Pulse Oximetry 98 03/12/19 01:21 GENERAL: Well-appearing, well-nourished and in no acute distress. CARDIOVASCULAR: peripheral pulses in tact, cap refill <2 sec RESPIRATORY: No respiratory distress, speaks in full sentences without difficulty EXTREMITIES: Normal range of motion, no clubbing or edema. Neurovascularly intact Left inguinal ligament pain pinpoint tender to touch no hernia appreciated strong femoral pulses appreciated. good distal pedal pulse. NEUROLOGICAL: Cranial nerves II through XII grossly intact. Normal gait and speech. SKIN: Warm, dry, no petechiae, no rashes or lesions. Scores Wells' Criteria for DVT Active Cancer (Treatment within 6 months): No Collateral (nonvericose) superficial veins present: No Entire leg swollen: No Localized tenderness along the deep vein system: No Pitting edema, confined to symtomatic leg: No Paralysis, paresis, or recent plaster immobilization of ext: No Previously documented DVT: No Alternative dx to DVT as likely or more likely: No Course Vital Signs - 8 hr 03/12/19 01:21 03/12/19 02:43 Temperature 98.2 F Pulse Rate 66 63 Respiratory Rate 18 18 Blood Pressure 117/51 L 101/56 L Pulse Oximetry 98 95 MDM - Extremity (Nontraumatic) MDM Narrative Medical decision making narrative: At this point patient has pinpoint pain in 1 spot which is reproducible with palpation and movement. She has no risk factor for DVT. Pain has been ongoing for a number of weeks it remains relatively unchanged I recommended outpatient follow-up. Discharge Plan Departure Patient Disposition: Home Clinical Impression: Groin pain Qualifiers: Laterality: left Qualified Code(s): R10.32 - Left lower quadrant pain Discharge Date/Time: 03/12/19 02:43 Interventions: ED Discharge Assessment Last Done: 03/12/19 02:43 Instructions: Groin Strain Activity Restrictions/Additional Instructions: *You have been diagnosed with left groin strain *What to do: Increase activity as tolerated. At this time I do not think you need any imaging. However if no improvement you may require imaging determined by your PCP. I believe blood clot to be low risk at this time *Continue to take medications as directed Tylenol 650 mg every 4-6 hours if needed for pain *Follow up with your primary care provider in 2-3 days *Return to ER if you should have numbness, tingling, weakness, swelling, shortness of breath or chest or any new, worsening or concerning symptoms Prescriptions: No Action cetirizine [All Day Allergy (cetirizine)] 10 mg tablet 10 mg PO DAILY Qty: 90 RF: 3 varicella-zoster [id number] (PF) [Shingrix (PF)] 50 mcg/0.5 mL suspension for reconstitution 50 mcg IM ONCE Qty: 1 RF: 1 furosemide [Lasix] 20 mg tablet 40 mg PO DAILY PRN (Reason: edema) Qty: 60 RF: 3 gabapentin 300 mg capsule 300 mg PO DAILY PRNRF: 0 pantoprazole 40 mg tablet,delayed release (DR/EC) 40 mg PO .QOD RF: 0 clonazepam 1 mg tablet 1 mg PO HSP PRN (Reason: anxiety) Qty: 30 RF: 3 levothyroxine 125 mcg tablet 125 mcg PO DAILY Qty: 45 RF: 1 albuterol sulfate [Proventil HFA] 90 MCG/PUFF HFA aerosol inhaler 2 puff INH Q4-6HP PRNQty: 1 RF: 3 pramipexole 0.125 mg tablet 3 tab PO HS Qty: 90 RF: 6 fluticasone propionate 50 mcg/actuation spray,suspension 1 spray Intranasal BID Qty: 15.8 RF: 3 citalopram 20 mg tablet 20 mg PO BID Qty: 60 RF: 6 potassium chloride 10 mEq tablet extended release 10 meq PO BID Qty: 60 RF: 3 doxycycline monohydrate 100 mg capsule 100 mg PO BID Qty: 28 RF: 0 bupropion HCl 75 mg tablet 75 mg PO BID Qty: 120 RF: 1 ondansetron 4 mg tablet,disintegrating 4 mg PO Q6-8H PRN (Reason: nausea and vomiting) Qty: 12 RF: 0 Referrals: Ani Mckeon PA-C [Primary Care Provider] -
[2019-03-12 02:43] VITALS: BP 101/56; PULSE 63; RESP 18; O2SAT 95
== END 2019-03-12 02:43 | disposition home or self-care (01) ==
PROVIDERS: Emergency Provider Emergency Medicine; PCP Physician Assistant
DX: R10.32 Left lower quadrant pain (principal)
CPT/HCPCS: 99282

== ENCOUNTER 2019-06-02 07:45 | Emergency (ER) | payer OTHER, MEDICAID, SELFPAY ==
[2019-06-02 07:53] VITALS: BP 143/87; PULSE 100; RESP 14; TEMP 37.1; O2SAT 98
[2019-06-02] MEDS: SODIUM CHLORIDE 0.9% 1,000 ML 150 ML IV (08:00)
--- NOTE | 2019-06-02 08:01 | PC.NURSE ---
placed by ivon bradley rn.
[2019-06-02 08:05] LABS: Add Manual Diff / Slide Review NO; Basophils Absolute Auto 0 /uL (0-100); Basophils Percent Auto 0.7 % (0-2); Eosinophils Absolute Auto 200 /uL (0-450); Eosinophils Percent Auto 2.5 % (2-4); Hematocrit 40.8 % (36-46); Hemoglobin 13.4 g/dL (12.0-16.0); Lymphocytes Absolute Auto 1700 /uL (1100-4500); Lymphocytes Percent Auto 27.4 % (25-40); Mean Corpuscular HGB Conc 32.9 % (30-36); Mean Corpuscular Hemoglobin 28.9 PG (26-34); Monocytes Absolute Auto 400 /uL (0-900); Monocytes Percent Auto 7.3 % (3-14); Neutrophils Absolute Auto 3800 /uL (1500-7000); Neutrophils Percent Auto 62.1 % (50-75); Platelet Count 191 X10^3/uL (150-400); Red Blood Cell Count 4.64 X10^6/uL (4.0-5.2); Red Cell Distribution Width 17.3 % (11.6-14.8); White Blood Cell Count 6.2 X10^3/uL (4.5-11.0)
--- NOTE | 2019-06-02 08:05 | PC.NURSE ---
Pt reports recent gastric bypass surgery and working 18 hour shifts these past 2 weeks, and that has maybe prompted this irregular heart rate. She says it's happened before and her potassium was off. She takes furosemide for swelling in her legs and does take a potassium supplement.
[2019-06-02 08:19] LABS: BUN Creatinine Ratio 17.5 (6-22); Blood Urea Nitrogen 14 mg/dL (7-17); Calcium 9.1 mg/dL (8.4-10.2); Carbon Dioxide 28 mmol/L (22-32); Chloride 108 mmol/L (98-107); Creatine Kinase 300 U/L (30-135); Estimated Glomerular Filt Rate > 60.0 mL/min (>60); Glucose 102 mg/dL (70-100); Magnesium 1.9 mg/dL (1.6-2.3); Sodium 143 mmol/L (137-145)
[2019-06-02 08:23] LABS: HEMOLYSIS 69 (0-50); Potassium 4.3 mmol/L (3.4-5.1)
--- NOTE | 2019-06-02 08:23 | ED_ITS ---
HPI - Arrhythmia/Palpitations General Chief Complaint: Arrhythmia/Palpitations Stated Complaint: heart feels out of rythym, weak, dizzy Time Seen by Provider: 06/02/19 07:47 Source: patient Mode of arrival: ambulatory Limitations: no limitations History of Present Illness HPI narrative: 53-year-old female nonsmoker with history of gastric bypass and hypokalemia as well as asthma presents with a chief complaint of palpitations and a feeling of skipped beats since last night. She is not dizzy nor weak or lightheaded. She denies any chest pain or shortness of breath. She has had no nausea, vomiting or diarrhea. She denies any medication or dietary change. She does state that she takes Lasix with potassium supplementation and has missed no doses. She states that in the past this has been due to low potassium. MD complaint: rapid heart beat Duration: constant Severity: mild Context: occurred during rest Associated symptoms: denies other symptoms Related Data Home Medications Medication Instructions Recorded Confirmed pantoprazole 40 mg tablet,delayed 40 mg PO .QOD tab 01/14/19 06/02/19 release Previous Rx's Medication Instructions Recorded albuterol sulfate [Proventil HFA] 2 puff INH Q4-6HP PRN #1 inh 12/03/17 varicella-zoster glycoE [id number] 50 mcg IM ONCE #1 each 08/05/18 adj(PF) 50 mcg/0.5 mL IM susp, kit fluticasone propionate 50 1 spray INTRANASAL BID #15.8 gram 12/03/18 mcg/actuation nasal spray,suspension citalopram 20 mg PO BID #60 tab 01/14/19 clonazepam 1 mg tablet 1 mg PO HSP PRN #30 tab 01/14/19 bupropion HCl 75 mg tablet 75 mg PO BID #120 tab 02/25/19 pramipexole 3 tab PO HS #90 tab 03/14/19 levothyroxine 125 mcg tablet 125 mcg PO DAILY #45 tab 04/14/19 furosemide 20 mg tablet 40 mg PO DAILY PRN #60 tab 04/21/19 cetirizine 10 mg tablet 10 mg PO DAILY #90 tab 05/12/19 potassium chloride ER 10 mEq 10 meq PO BID #60 tab 05/19/19 tablet,extended release Allergies Allergy/AdvReac Type Severity Reaction Status Date / Time animal dander [ANIMAL DANDER] Allergy Intermediate ITCHY Verified 03/20/19 09:02 WATERY EYES AND SNEEZING grass pollen AdvReac Intermediate itching Verified 03/20/19 09:02 house dust AdvReac Intermediate itching Verified 03/20/19 09:02 Review of Systems Constitutional Denies chills, Denies fever(s), Denies lethargy and Denies weakness Eyes Denies change in vision, Denies eye discharge, Denies irritation and Denies loss of vision ENT Ears, Nose, Mouth, and Throat: Denies change in voice, Denies neck pain and Denies sore throat Cardiovascular Denies chest pain, Denies irregular heart rhythm, Denies lightheadedness, Reports palpitations, Denies dyspnea, Denies dyspnea on exertion and Denies orthopnea Respiratory Denies cough, Denies dyspnea, Denies dyspnea on exertion and Denies wheezing Gastrointestinal Gastrointestinal: Denies abdominal pain, Denies change in bowel habits, Denies diarrhea, Denies nausea and Denies vomiting Genitourinary Denies hematuria, Denies flank pain, Denies urinary incontinence and Denies urinary urgency Musculoskeletal Denies neck pain Integumentary/Breasts Denies pruritus, Denies erythema, Denies rash and Denies wounds Neurologic Denies confusion, Denies loss of vision and Denies weakness Psychiatric Denies anxiety, Denies confusion, Denies depression, Denies homicidal ideation and Denies suicidal ideation Endocrine Reports palpitations Hematologic/Lymphatic Denies easy bruising Allergic/Immunologic Denies wheezing [facility] Medical History Acquired hypothyroidism (Chronic ~2016) Allergic rhinitis (Chronic) Depression (Chronic Unknown) Obstructive sleep apnea (Chronic) Peripheral edema (Chronic ~2010) Restless leg (Chronic) Varicose veins of both lower extremities with complications (Chronic ~2010) Surgical History History of Vasu-en-Y gastric bypass (Resolved) History of thyroidectomy Status post breast lumpectomy Status post laparoscopic cholecystectomy Family History Sister Age: 55 History of breast cancer Social History marital status: household members: family occupational status: employed Smoking Status: Former smoker Tobacco: How many years used: 3 second hand exposure: No alcohol intake: current substance use type: does not use Type(s) of exercise: none Family History Sister Age: 55 History of breast cancer Social History marital status: household members: family occupational status: employed Smoking Status: Former smoker Tobacco: How many years used: 3 second hand exposure: No alcohol intake: current substance use type: does not use Type(s) of exercise: none Exam Narrative Exam Narrative: GENERAL: 53F appears stated age, mildly anxious, no significant distress HEAD: Atraumatic. Normocephalic. No temporal or scalp tenderness. EYES: Pupils equal round and reactive. Extraocular motions intact. No scleral icterus. No injection or drainage. ENT: Nose without bleeding, purulent drainage or septal hematoma. Throat without erythema, tonsillar hypertrophy or exudate. Uvula midline. Airway patent. NECK: Trachea midline. No JVD or lymphadenopathy. Supple, nontender, no meningeal signs. CARDIOVASCULAR: Irregular rate and rhythm without murmurs, gallops, or rubs. RESPIRATORY: Clear to auscultation. Breath sounds equal bilaterally. No wheezes, rales, or rhonchi. GASTROINTESTINAL: Abdomen soft, non-tender, nondistended. No hepato-splenomeg laura, or palpable masses. No guarding. EXTREMITIES: No clubbing, cyanosis, or edema. No joint tenderness, effusion, or edema noted. BACK: Nontender without deformity or crepitance. No flank tenderness. NEURO: AOx3. SKIN: No rash or erythema. Initial Vital Signs Initial Vital Signs: Vital Signs Temperature 98.8 F 06/02/19 07:53 Pulse Rate 100 H 06/02/19 07:53 Respiratory Rate 14 06/02/19 07:53 Blood Pressure 143/87 H 06/02/19 07:53 Pulse Oximetry 98 06/02/19 07:53 Scores CHADS-VASc Congestive heart failure: no Hypertension: no Age 75 years or older: no Diabetes mellitus: no Stroke, TIA, or TE: no Vascular disease: no Age 65 to 74 years: no Sex category (female): Female CHADS-VASc Score: 1 Course Course Narrative: 53-year-old female appears to be in what may be a newly discovered atrial fibrillation. The more we talked the less clear at the time of onset becomes and very well could have been a few days. The patient is not in any extremis, as no ischemic change on her EKG and time of onset is unclear therefore she is not a candidate for cardioversion. Her chads Vasc score is 1 and therefore she is put on aspirin. She sees a local provider and would prefer to start there as opposed to initial referral to Cardiology. Orders Ordered: ED Orders 06/02/19 07:50 Basic Metabolic Panel Stat Complete Blood Count AUTO DIFF Stat Magnesium Stat Thyroid Stimulating Hormone Stat Troponin & CK Cardiac Panel Stat EKG-12 Lead Stat Discontinued Medications Sodium Chloride (Normal Saline 0.9%) 1,000 mls @ 150 mls/hr IV CONT SHARON Vital Signs - 8 hr 06/02/19 07:53 06/02/19 08:30 Temperature 98.8 F Pulse Rate 100 H 91 H Respiratory Rate 14 9 L Blood Pressure 143/87 H Blood Pressure [Left Arm] 127/94 H Pulse Oximetry 98 95 MDM - Arrhythmia/Palpitations Lab Data Result diagrams: 06/02/19 07:50 06/02/19 07:50 Lab Results 06/02/19 06/02/19 06/02/19 Range/Units 07:50 07:50 07:50 WBC 6.2 (4.5-11.0) X10^3/uL RBC 4.64 (4.0-5.2) X10^6/uL Hgb 13.4 (12.0-16.0) g/dL Hct 40.8 (36-46) % MCV 88.0 (80-100) fL MCH 28.9 (26-34) PG MCHC 32.9 (30-36) % RDW 17.3 H (11.6-14.8) % Plt Count 191 (150-400) X10^3/uL Neut % (Auto) 62.1 (50-75) % Lymph % (Auto) 27.4 (25-40) % [place] % (Auto) 7.3 (3-14) % Eos % (Auto) 2.5 (2-4) % Baso % (Auto) 0.7 (0-2) % Neut # (Auto) 3800 (9003-9752) /uL Lymph # (Auto) 1700 (9090-3707) /uL [place] # (Auto) 400 (0-900) /uL Eos # (Auto) 200 (0-450) /uL Baso # (Auto) 0 (0-100) /uL Sodium 143 (137-145) mmol/L Potassium 4.3 (3.4-5.1) mmol/L Chloride 108 H (98-107) mmol/L Carbon Dioxide 28 (22-32) mmol/L BUN 14 (7-17) mg/dL Creatinine 0.80 (0.52-1.04) mg/dL Estimated GFR > 60.0 (>60) mL/min BUN/Creatinine Ratio 17.5 (6-22) Glucose 102 H (70-100) mg/dL Calcium 9.1 (8.4-10.2) mg/dL Magnesium 1.9 (1.6-2.3) mg/dL Total Creatine Kinase 300 H (30-135) U/L CK-MB (CK-2) 0.55 (<2.37) ng/mL CK-MB (CK-2) Rel Index 0.2 L (1.5-5.0) % Troponin I < 0.012 (0.01-0.034) ng/mL TSH 1.25 (0.47-4.68) uIU/mL Discharge Plan Departure Patient Disposition: Home Clinical Impression: Atrial fibrillation, new onset Discharge Date/Time: 06/02/19 09:03 Interventions: ED Discharge Assessment Last Done: 06/02/19 09:03 Instructions: DI for Atrial Fibrillation Activity Restrictions/Additional Instructions: *You have been diagnosed with [newly discovered atrial fibrillation] *What to do: *Take medications as directed: add Aspirin 325mg PO daily *Follow up with your primary care provider in 2-3 days, call for an appointment. Let them know you were seen in the Emergency Department and that we ask that you be seen in follow up, she may want you to see cardiology, and in that case I've provided contact info for the two cardiology groups that see patients in [place] *Return to ER if you should have any new, worsening or concerning symptoms Prescriptions: No Action varicella-zoster [id number] (PF) [Shingrix (PF)] 50 mcg/0.5 mL suspension for reconstitution 50 mcg IM ONCE Qty: 1 RF: 1 pantoprazole 40 mg tablet,delayed release (DR/EC) 40 mg PO .QOD RF: 0 clonazepam 1 mg tablet 1 mg PO HSP PRN (Reason: anxiety) Qty: 30 RF: 3 albuterol sulfate [Proventil HFA] 90 MCG/PUFF HFA aerosol inhaler 2 puff INH Q4-6HP PRNQty: 1 RF: 3 fluticasone propionate 50 mcg/actuation spray,suspension 1 spray Intranasal BID Qty: 15.8 RF: 3 citalopram 20 mg tablet 20 mg PO BID Qty: 60 RF: 6 pramipexole 0.125 mg tablet 3 tab PO HS Qty: 90 RF: 6 levothyroxine 125 mcg tablet 125 mcg PO DAILY Qty: 45 RF: 1 furosemide [Lasix] 20 mg tablet 40 mg PO DAILY PRN (Reason: edema) Qty: 60 RF: 3 cetirizine [All Day Allergy (cetirizine)] 10 mg tablet 10 mg PO DAILY Qty: 90 RF: 0 potassium chloride 10 mEq tablet extended release 10 meq PO BID Qty: 60 RF: 3 bupropion HCl 75 mg tablet 75 mg PO BID Qty: 120 RF: 1 Referrals: Ani Mckeon PA-C [Primary Care Provider] - Serafin Saldivar MD [Non-Staff] - Nathan Chambers MD [Physician] -
[2019-06-02 08:30] VITALS: BP 127/94; PULSE 82; PULSE 91; RESP 9; O2SAT 94; O2SAT 95
[2019-06-02 08:30] LABS: Troponin I < 0.012 ng/mL (0.01-0.034)
[2019-06-02 08:45] LABS: CKMB % Relative Index 0.2 % (1.5-5.0); Creatine Kinase MB 0.55 ng/mL (<2.37)
[2019-06-02 09:02] LABS: Thyroid Stimulating Hormone 1.25 uIU/mL (0.47-4.68)
== END 2019-06-02 09:03 | disposition home or self-care (01) ==
PROVIDERS: Emergency Provider Emergency Medicine; PCP Physician Assistant
DX: I48.91 Unspecified atrial fibrillation (principal)
CPT/HCPCS: 36591; 80048; 82550; 82553; 83735; 84443; 84484; 85025; 93005; 96360; 99283; 99284

== ENCOUNTER 2019-08-04 06:40 | Emergency (ER) | payer OTHER, SELFPAY ==
[2019-08-04 06:40] VITALS: BP 109/67; PULSE 75; RESP 16; O2SAT 97
--- NOTE | 2019-08-04 06:46 | DI.RAD.S_ITS ---
PROCEDURE: XR TIBIA FIBULA RT 2V INDICATIONS: pain, swelling, ecchymosis TECHNIQUE: 2 views of the tibia and fibula were acquired. COMPARISON: None. FINDINGS: Bones: No fractures or dislocations. No suspicious bony lesions. No osseous erosions. No periosteal reaction. Soft tissues: No suspicious soft tissue calcifications or masses. No soft tissue gas. IMPRESSION: No harpal evidence of osteomyelitis. Plain film radiographs can be insensitive to osteomyelitis during the initial 15 days of the disease process. If there is clinical concern for osteomyelitis, then three-phase nuclear medicine bone scan is warranted. Dictated by: Anuja Dominique MD, PhD on 08/04/2019 at 9:11 Approved by: Anuja Dominique MD, PhD on 08/04/2019 at 9:12
--- NOTE | 2019-08-04 06:46 | DI.RAD.S_ITS ---
PROCEDURE: XR FOOT RT MIN 3V INDICATIONS: severe pain, swelling, ecchymosis, trauma TECHNIQUE: 3 views of the foot were acquired. COMPARISON: None. FINDINGS: Bones: No fractures or dislocations. No suspicious bony lesions. Calcaneal bone spur. Soft tissues: No tibiotalar joint effusion. Achilles tendon appears normal. IMPRESSION: No fracture. No acute osseous lesion. If symptoms and/or clinical suspicion for pathology persists, further assessment with repeat radiographs (7-10 days) or advanced imaging (e.g. CT, MRI or bone scan) may be helpful. Dictated by: Anuja Dominique MD, PhD on 08/04/2019 at 9:12 Approved by: Anuja Dominique MD, PhD on 08/04/2019 at 9:12
--- NOTE | 2019-08-04 06:46 | DI.RAD.S_ITS ---
PROCEDURE: XR ANKLE RT MIN 3V INDICATIONS: pain, swelling, ecchymosis, trauma TECHNIQUE: 3 views of the ankle were acquired. COMPARISON: None. FINDINGS: Bones: No fractures or dislocations. Ankle mortise is normally aligned. No suspicious bony lesions. Soft tissues: No tibiotalar joint effusion. Achilles tendon appears normal. IMPRESSION: No fracture. No osseous lesion. If symptoms and/or clinical suspicion for pathology persists, further assessment with repeat radiographs (7-10 days) or advanced imaging (e.g. CT, MRI or bone scan) may be helpful. Dictated by: Anuja Dominique MD, PhD on 08/04/2019 at 9:12 Approved by: Anuja Dominique MD, PhD on 08/04/2019 at 9:13
--- NOTE | 2019-08-04 06:47 | DI.RAD.S_ITS ---
PROCEDURE: XR CHEST 1V INDICATIONS: trauma TECHNIQUE: One view of the chest was acquired. COMPARISON: [facility], CR, XR CHEST 2V, 03/20/2018, 22:24. FINDINGS: Surgical changes and devices: None. Lungs and pleura: Lungs are clear. No pleural effusions or pneumothorax. Mediastinum: Mediastinal contours appear normal. Heart size is normal. Bones and chest wall: No suspicious bony lesions. Overlying soft tissues appear unremarkable. IMPRESSION: No acute cardiopulmonary disease process. Dictated by: Anuja Dominique MD, PhD on 08/04/2019 at 9:04 Approved by: Anuja Dominique MD, PhD on 08/04/2019 at 9:10
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
[2019-08-04 06:56] VITALS: BP 135/82; PULSE 85; RESP 18; TEMP 36.9; O2SAT 99; BMI 33.8
[2019-08-04 07:01] VITALS: PULSE 85
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
[2019-08-04 07:29] LABS: Add Manual Diff / Slide Review NO; Basophils Absolute Auto 0 /uL (0-100); Basophils Percent Auto 0.7 % (0-2); Eosinophils Absolute Auto 100 /uL (0-450); Eosinophils Percent Auto 2.1 % (2-4); Hematocrit 41.3 % (36-46); Hemoglobin 13.8 g/dL (12.0-16.0); Lymphocytes Absolute Auto 1100 /uL (1100-4500); Lymphocytes Percent Auto 21.6 % (25-40); Mean Corpuscular HGB Conc 33.5 % (30-36); Mean Corpuscular Hemoglobin 30.3 PG (26-34); Mean Corpuscular Volume 90.4 fL (80-100); Monocytes Absolute Auto 600 /uL (0-900); Monocytes Percent Auto 11.3 % (3-14); Neutrophils Absolute Auto 3200 /uL (1500-7000); Neutrophils Percent Auto 64.3 % (50-75); Platelet Count 168 X10^3/uL (150-400); Red Blood Cell Count 4.57 X10^6/uL (4.0-5.2)
[2019-08-04 07:39] LABS: BUN Creatinine Ratio 15.7 (6-22); Blood Urea Nitrogen 11 mg/dL (7-17); Calcium 8.9 mg/dL (8.4-10.2); Carbon Dioxide 30 mmol/L (22-32); Chloride 102 mmol/L (98-107); Estimated Glomerular Filt Rate > 60.0 mL/min (>60); Glucose 122 mg/dL (70-100); HEMOLYSIS < 15 (0-50); Potassium 3.5 mmol/L (3.4-5.1); Sodium 139 mmol/L (137-145)
[2019-08-04 08:39] VITALS: BP 117/68; PULSE 66; RESP 14; O2SAT 94
[2019-08-04 09:16] VITALS: BP 127/67; PULSE 67; RESP 14; O2SAT 100
== END 2019-08-04 09:27 | disposition home or self-care (01) ==
PROVIDERS: Emergency Medicine; Emergency Provider Emergency Medicine; PCP Physician Assistant
DX: S80.12XA Contusion of left lower leg, initial encounter (principal); S90.31XA Contusion of right foot, initial encounter; V28.5XXA Motorcycle passenger injured in noncollision transport accident in traffic accident, initial encounter
CPT/HCPCS: 36415; 71045; 72170; 73590; 73610; 73630; 80048; 85025; 99283; 99284

== ENCOUNTER → 2019-08-25 14:04 | Outpatient (CLI) | payer OTHER, SELFPAY ==
--- NOTE | 2019-08-25 14:07 | DI.US.S_ITS ---
PROCEDURE: US EXTREMITY NONVASC LOWER LT INDICATIONS: LEFT MEDIAL CALF, MASS, SUSPECT HEMATOMA TECHNIQUE: Real-time scanning was performed of the left anterior medial calf, with image documentation. COMPARISON: None. FINDINGS: 6.7 x 1.6 x 4.6 cm complex avascular fluid collection present. Smaller complex fluid collection seen inferior to the larger measuring 2.3 x 2.0 x 1.9 cm IMPRESSION: Avascular complex anterior medial calf fluids collection suspicious for evolving hematoma. Continued clinical correlation and followup recommended. Dictated by: Manny MELGOZA Interpreted: Jude Mora MD on 08/25/2019 at 15:19 Approved by: Jude Mora M.D. on 08/25/2019 at 17:47
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
== END ==
PROVIDERS: PCP Physician Assistant; Visit Provider Physician Assistant
DX: S80.12XA Contusion of left lower leg, initial encounter (principal); S92.321A Displaced fracture of second metatarsal bone, right foot, initial encounter for closed fracture; S92.331A Displaced fracture of third metatarsal bone, right foot, initial encounter for closed fracture; M79.671 Pain in right foot; V29.9XXA Motorcycle rider (driver) (passenger) injured in unspecified traffic accident, initial encounter
CPT/HCPCS: 73630; 76882

== ENCOUNTER 2019-11-08 09:43 | Emergency (ER) | payer OTHER, MEDICAID, SELFPAY ==
[2019-11-08 09:50] VITALS: BP 142/91; PULSE 92; RESP 16; TEMP 37.4; O2SAT 98; BMI 33.8
[2019-11-08 09:56] VITALS: TEMP 37.7
[2019-11-08] MEDS: ACETAMINOPHEN SUSP 650 MG/20.3 ML UDC PO (09:56)
--- NOTE | 2019-11-08 10:13 | ED_ITS ---
HPI - URI/Sore Throat General Chief Complaint: Upper Respiratory Symptoms Stated Complaint: kelly cisneros diagnosed with strep and has worsen Time Seen by Provider: 11/08/19 09:51 Source: patient Mode of arrival: Ambulatory Limitations: no limitations History of Present Illness HPI Narrative: Patient is 54-year-old female who presents with sore throat. She was actually diagnosed with strep on [facility] started on amoxicillin she says that she started getting better within 48-72 hours and was feeling fine until yesterday. Yesterday she started having sore throat had cold congestion cough. She denies any chest pain or shortness of breath. She is not sure if she has any fever or chills MD Complaint: cough Duration: constant Severity: mild Relieving factors: nothing Exacerbating factors: nothing Related Data Previous Rx's Medication Instructions Recorded albuterol sulfate [Proventil HFA] 2 puff INH Q4-6HP PRN #1 inh 12/03/17 fluticasone propionate 50 1 spray INTRANASAL BID #15.8 gram 12/03/18 mcg/actuation nasal spray,suspension citalopram 20 mg PO BID #60 tab 01/14/19 pramipexole 3 tab PO HS #90 tab 03/14/19 levothyroxine 125 mcg tablet 125 mcg PO DAILY #45 tab 04/14/19 cetirizine 10 mg tablet 10 mg PO DAILY #90 tab 05/12/19 clonazepam 1 mg tablet 1 mg PO HSP PRN #30 tab 07/08/19 pantoprazole 40 mg tablet,delayed 40 mg PO DAILY #30 tab 08/20/19 release fluconazole 150 mg tablet 150 mg PO Q3D #2 tab 08/23/19 furosemide 20 mg tablet 20 mg PO DAILY PRN #60 tab 09/12/19 fluconazole 150 mg tablet 150 mg PO ONCE PRN #2 tab 09/15/19 potassium chloride 10 mEq 10 meq PO BID #60 tab 10/14/19 tablet,extended release fluconazole 150 mg tablet 150 mg PO ONCE #1 tab 10/28/19 Allergies Allergy/AdvReac Type Severity Reaction Status Date / Time animal dander [ANIMAL DANDER] Allergy Intermediate ITCHY Verified 10/28/19 11:18 WATERY EYES AND SNEEZING grass pollen AdvReac Intermediate itching Verified 10/28/19 11:18 house dust AdvReac Intermediate itching Verified 10/28/19 11:18 Review of Systems Review of Systems Narrative: GENERAL: Denies chills, fatigue, malaise, fever, sweats, travel HEENT: See HPI RESPIRATORY: Denies dyspnea, cough, wheezing, hemoptysis, sputum. CARDIOVASCULAR: Denies chest pain, palpitations, orthopnea, edema GASTROINTESTINAL: Denies nausea, vomiting, abdominal pain, diarrhea, constipation, melena. : Denies dysuria, frequency, incontinence, hematuria, urinary retention, flank pain. MUSCULOSKELETAL: Denies weakness, joint pain, or bony pain SKIN: No rash, no erythema, no pruritus NEUROLOGIC: Denies weakness, dizziness, headache, numbness, change in speech, confusion PSYCHIATRIC: No concerning psychosocial issues. 12 point review of systems is negative except for those stated above and HPI Patient History Medical History Acquired hypothyroidism (Chronic ~2016) Allergic rhinitis (Chronic) Depression (Chronic Unknown) Obstructive sleep apnea (Chronic) Peripheral edema (Chronic ~2010) Restless leg (Chronic) Varicose veins of both lower extremities with complications (Chronic ~2010) Surgical History History of Vasu-en-Y gastric bypass (Resolved) History of thyroidectomy Status post breast lumpectomy Status post laparoscopic cholecystectomy Family History Sister Age: 56 History of breast cancer Social History marital status: household members: family occupational status: employed Smoking Status: Former smoker Tobacco: How many years used: 3 second hand exposure: No alcohol intake: current substance use type: does not use Type(s) of exercise: none Smoking Status: Former smoker alcohol intake frequency: 0-2 drinks per day Substance Use Type: marijuana Exam Initial Vital Signs Initial Vital Signs: Vital Signs Temperature 99.3 F 11/08/19 09:50 Pulse Rate 92 H 11/08/19 09:50 Respiratory Rate 16 11/08/19 09:50 Blood Pressure 142/91 H 11/08/19 09:50 Pulse Oximetry 98 11/08/19 09:50 GENERAL: Well-appearing, well-nourished and in no acute distress. HEENT: Head atraumatic,EOMI, pupils reactive, face symmetric, PHARYNX: Minimal erythema no uvula deviation swelling no exudate of tonsils minimal cervical lymphadenopathy CARDIOVASCULAR: Regular rate and rhythm without murmurs, rubs or gallops. RESPIRATORY: Breath sounds equal bilaterally, no wheezes rales or rhonchi. ABDOMEN: Soft, nontender. Normoactive bowel sounds all 4 quadrants. No guarding or rebound. EXTREMITIES: Normal range of motion, no clubbing or edema. Neurovascularly intact NEUROLOGICAL: Alert and oriented x4.Normal gait and speech. Cranial nerves II through XII grossly intact. SKIN: Warm, dry, no laceration, no petechiae, no rashes or lesions. Course Orders Ordered: ED Orders 11/08/19 09:50 Flu test [Influenza A & B (PCR)] Stat 11/08/19 10:27 Throat Culture Stat Discontinued Medications Acetaminophen (Tylenol Susp) 650 mg PO NOW ONE Stop: 11/08/19 09:54 Last Admin: 11/08/19 09:56 Dose: 650 mg Documented by: JOSH Vital Signs Vital signs: Vital Signs - 8 hr 11/08/19 09:50 11/08/19 09:56 11/08/19 11:31 Temperature 99.3 F 99.9 F H Pulse Rate 92 H 63 Respiratory Rate 16 16 Blood Pressure 142/91 H Blood Pressure [Left Arm] 122/74 Pulse Oximetry 98 99 MDM - URI/Sore Throat Lab Data Attestation: I reviewed the patient's lab results. Labs: Lab Results 11/08/19 Range/Units 09:50 Influenza A (RT-PCR) Flu a negative (NEGATIVE) Influenza B (RT-PCR) Flu b negative (NEGATIVE) Point of Care Testing Rapid Strep A Negative MDM Narrative Medical decision making narrative: Patient overall is not septic. Her strep and influenza are negative. At this time no indication for any further testing this is likely no other upper respiratory virus, recommend supportive care. Discharge Plan Departure Patient Disposition: Home Clinical Impression: Acute upper respiratory infection Instructions: DI for Viral Upper Respiratory Infection -- Adult Activity Restrictions/Additional Instructions: *You have been diagnosed with upper respiratory infection *What to do: Influenza and strep are both negative. At this time no indication for antibiotics. This is likely different virus will run its course over the next 5-7 days. Recommend resting and hydrating *Continue to take medications as directed *Follow up with your primary care provider in 2-3 days *Return to ER if you should have acute increasing sore throat difficulty breathing, not able tolerate fluids or any new, worsening or concerning symptoms Prescriptions: No Action fluconazole [Diflucan] 150 mg tablet 150 mg PO Q3D Qty: 2 RF: 0 fluconazole [Diflucan] 150 mg tablet 150 mg PO ONCE Qty: 1 RF: 0 albuterol sulfate [Proventil HFA] 90 MCG/PUFF HFA aerosol inhaler 2 puff INH Q4-6HP PRNQty: 1 RF: 3 fluticasone propionate 50 mcg/actuation spray,suspension 1 spray Intranasal BID Qty: 15.8 RF: 3 citalopram 20 mg tablet 20 mg PO BID Qty: 60 RF: 6 pramipexole 0.125 mg tablet 3 tab PO HS Qty: 90 RF: 6 levothyroxine 125 mcg tablet 125 mcg PO DAILY Qty: 45 RF: 1 cetirizine [All Day Allergy (cetirizine)] 10 mg tablet 10 mg PO DAILY Qty: 90 RF: 0 clonazepam 1 mg tablet 1 mg PO HSP PRN (Reason: anxiety) Qty: 30 RF: 3 furosemide 20 mg tablet 20 mg PO DAILY PRN (Reason: edema) Qty: 60 RF: 3 potassium chloride 10 mEq tablet extended release 10 meq PO BID Qty: 60 RF: 3 fluconazole [Diflucan] 150 mg tablet 150 mg PO ONCE PRN (Reason: candiasis) Qty: 2 RF: 1 pantoprazole 40 mg tablet,delayed release (DR/EC) 40 mg PO DAILY Qty: 30 RF: 3 Referrals: Ani Mckeon PA-C [Primary Care Provider] -
[2019-11-08 10:33] LABS: Influenza A - CEPHEID Flu A NEGATIVE (NEGATIVE); Influenza B - CEPHEID Flu B NEGATIVE (NEGATIVE)
[2019-11-08 11:31] VITALS: BP 122/74; PULSE 63; RESP 16; O2SAT 99
== END 2019-11-08 11:50 | disposition home or self-care (01) ==
PROVIDERS: Emergency Provider Emergency Medicine; PCP Physician Assistant
DX: J06.9 Acute upper respiratory infection, unspecified (principal)
CPT/HCPCS: 87070; 87502; 87880; 99283

== ENCOUNTER 2019-11-17 19:47 | Emergency (ER) | payer OTHER, MEDICAID, SELFPAY ==
[2019-11-17 19:53] VITALS: BP 114/57; PULSE 89; RESP 18; TEMP 36.6; O2SAT 97
[2019-11-17 20:21] LABS: Bacteria Urine None Seen; RBC Urine None Seen (0-5/HPF); WBC Urine None Seen (0-5/HPF)
[2019-11-17 20:26] LABS: UR Morphine/Opiate cutoff 300 Negative (Negative); Ur Creatinine Abnormal (Normal); Ur Specific Gravity Normal (Normal); Urine Amphetamines Negative (Negative); Urine Barbiturates Negative (Negative); Urine Benzodiazepines Negative (Negative); Urine Cocaine Negative (Negative); Urine MDMA Negative (Negative); Urine Methadone Negative (Negative); Urine Methamphetamines Negative (Negative); Urine Oxycodone Negative (Negative); Urine Phencyclidine Negative (Negative); Urine Tetrahydrocannabinol Negative (Negative); Urine Tricyclic Antidepressant Negative (Negative); Urine pH Normal (Normal)
[2019-11-17 20:26] LABS: Add Manual Diff / Slide Review NO; Basophils Absolute Auto 0 /uL (0-100); Basophils Percent Auto 0.5 % (0-2); Eosinophils Absolute Auto 100 /uL (0-450); Eosinophils Percent Auto 1.6 % (2-4); Hematocrit 41.7 % (36-46); Hemoglobin 13.7 g/dL (12.0-16.0); Lymphocytes Absolute Auto 1900 /uL (1100-4500); Lymphocytes Percent Auto 33.3 % (25-40); Mean Corpuscular HGB Conc 32.8 % (30-36); Mean Corpuscular Hemoglobin 29.8 PG (26-34); Mean Corpuscular Volume 90.9 fL (80-100); Monocytes Absolute Auto 500 /uL (0-900); Neutrophils Absolute Auto 3100 /uL (1500-7000); Neutrophils Percent Auto 55.6 % (50-75); Platelet Count 176 X10^3/uL (150-400); Red Blood Cell Count 4.59 X10^6/uL (4.0-5.2); Red Cell Distribution Width 15.2 % (11.6-14.8); White Blood Cell Count 5.6 X10^3/uL (4.5-11.0)
[2019-11-17 20:27] LABS: Culture Indicated Urine Cult Not Indicated; Squamous Epithelial Cell Urine 0-1 /HPF (0-5/HPF); Transitional Epi Cells Urine 0-1/HPF (0-5/HPF)
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
[2019-11-17 20:40] LABS: Acetaminophen < 10 ug/mL (10-30); Alanine Aminotransferase 37 IU/L (<35); Albumin 4.5 g/dL (3.5-5.0); Albumin Globulin Ratio 1.4 (1.0-2.8); Alkaline Phosphatase 115 U/L (38-126); Aspartate Aminotransferase 73 IU/L (14-36); Bilirubin Total 0.2 mg/dL (0.2-1.3); Blood Urea Nitrogen 9 mg/dL (7-17); Calcium 8.8 mg/dL (8.4-10.2); Carbon Dioxide 29 mmol/L (22-32); Chloride 106 mmol/L (98-107); Estimated Glomerular Filt Rate > 60.0 mL/min (>60); Ethanol (ETOH) 208 mg/dL; Globulin 3.2 g/dL (1.7-4.1); Glucose 73 mg/dL (70-100); HEMOLYSIS < 15 (0-50); Potassium 3.5 mmol/L (3.4-5.1); Salicylate < 1.0 mg/dL (<20); Sodium 145 mmol/L (137-145); Total Protein 7.7 g/dL (6.3-8.2)
[2019-11-17 21:52] LABS: Thyroid Stimulating Hormone 2.56 uIU/mL (0.47-4.68)
--- NOTE | 2019-11-17 22:42 | PC.NURSE ---
Pt requesting that friend Isamar be kept updated as needed
[2019-11-17 23:40] VITALS: BP 114/73; PULSE 72; RESP 14; TEMP 37; O2SAT 96
[2019-11-18 06:21] VITALS: BP 108/70; PULSE 66; RESP 12; TEMP 36.9; O2SAT 97
--- NOTE | 2019-11-18 08:16 | PC.NURSE ---
[facility] declined her admit to [facility]. soc[facility] service to see.
[2019-11-18 10:11] VITALS: BP 121/77; PULSE 66; RESP 14; TEMP 37.4; O2SAT 98
--- NOTE | 2019-11-18 11:57 | PC.NURSE ---
Pt given water. HR 72. Pt states she doesn't want water but she has a gingerale. Dr Garcia aware
[2019-11-18 11:59] VITALS: PULSE 72
--- NOTE | 2019-11-18 13:17 | PC.NURSE ---
pt ate lunch. aware going to [place]. family here to see
[2019-11-18 13:57] VITALS: BP 136/90; PULSE 89; RESP 18; TEMP 37.2; O2SAT 100
== END 2019-11-18 14:23 ==
PROVIDERS: Emergency Medicine; Emergency Provider Emergency Medicine; PCP Physician Assistant
DX: F10.10 Alcohol abuse, uncomplicated (principal); R45.851 Suicidal ideations; R00.2 Palpitations
CPT/HCPCS: 36415; 80053; 80305; 80320; 80329; 81003; 81015; 84443; 85025; 93005; 99284; G0480

== ENCOUNTER → 2020-04-23 12:08 | Outpatient (CLI) | payer OTHER, MEDICAID, SELFPAY ==
--- NOTE | 2020-04-23 12:11 | DI.RAD.S_ITS ---
PROCEDURE: XR KUB INDICATIONS: Left flank pain TECHNIQUE: One view of the abdomen acquired. COMPARISON: None. FINDINGS: Surgical changes and devices: Intrauterine device projected over the mid pelvis. Cholecystectomy clips. Bowel: Bowel gas pattern is normal. Soft tissues: No suspicious abdominal calcifications. Visualized solid organ contours appear normal in size. Bones: No suspicious bony lesions. IMPRESSION: No source for left flank pain identified. Dictated by: Manny MELGOZA Interpreted: Jono Herrera MD on 04/23/2020 at 14:27 Approved by: David Fiore M.D. on 04/26/2020 at 9:54
== END ==
PROVIDERS: PCP Internal Medicine; Referring Provider Internal Medicine; Visit Provider Internal Medicine
DX: R10.9 Unspecified abdominal pain (principal)
CPT/HCPCS: 74018

== ENCOUNTER → 2020-04-28 11:58 | Outpatient (CLI) | payer OTHER, MEDICAID, SELFPAY ==
--- NOTE | 2020-04-28 12:26 | DI.CT.S_ITS ---
PROCEDURE: CT ABDOMEN PELVIS W CON INDICATIONS: left flank pain, poss kidney stone TECHNIQUE: After the administration of intravenous contrast, 5 mm thick sections acquired from the diaphragm to the symphysis. 5 mm coronal and sagittal reformats were acquired. For radiation dose reduction, the following was used: automated exposure control, adjustment of mA and/or kV according to patient size. COMPARISON: [facility], CT, CT ABDOMEN PELVIS W CON, 08/10/2018, 23:23. [facility], CT, CT ABDOMEN PELVIS W CON, 09/28/2018, 15:24. FINDINGS: Image quality: Excellent. ABDOMEN: Lung bases: Lung bases are clear. Heart size is normal. Small hiatal hernia. Solid organs: Liver is normal in size and enhancement. Gallbladder is surgically absent. Biliary system is non dilated. Pancreas enhances normally. Spleen is normal in size and enhancement. No adrenal nodules. Kidneys demonstrate normal size and enhancement, without hydronephrosis. Peritoneum and bowel: There is gastric bypass. There is concentric thickening of loops of jejunum in the left upper quadrant. Bowel loops demonstrate normal caliber. No free fluid or air. Nodes and vessels: No retroperitoneal or mesenteric adenopathy by size criteria. Aorta and inferior vena cava are normal in size. Miscellaneous: No ventral hernias. PELVIS: Genitourinary: Bladder wall thickness is normal. Uterus and ovaries are normal. An IUD is noted within the uterus. Miscellaneous: No inguinal hernias or adenopathy. Bones: No suspicious bony lesions. No vertebral body compression fractures. IMPRESSION: 1. No renal stone hydronephrosis. 2. There is concentric thickening of several loops of jejunum in the left upper quadrant. This finding may be secondary to infectious regional enteritis or inflammatory bowel disease. No findings to suggest small bowel obstruction. 3. Gastric bypass. Cholecystectomy. Dictated by: Jessica Santiago M.D. on 04/28/2020 at 13:26 Approved by: Jessica Santiago M.D. on 04/28/2020 at 13:36
== END ==
PROVIDERS: PCP Internal Medicine; Referring Provider Internal Medicine; Visit Provider Internal Medicine
DX: R10.9 Unspecified abdominal pain (principal); Z90.49 Acquired absence of other specified parts of digestive tract; Z98.84 Bariatric surgery status; Z97.5 Presence of (intrauterine) contraceptive device
CPT/HCPCS: 74177; Q9967

== ENCOUNTER 2020-05-04 14:19 | Emergency (ER) | payer OTHER, MEDICAID, SELFPAY ==
[2020-05-04] VITALS (20 sets, daily range): BP systolic 123–161; BP diastolic 60–101; PULSE 66–80; RESP 18–20; TEMP 37.1; O2SAT 97–100; BMI 34.7
--- NOTE | 2020-05-04 14:41 | ED_ITS ---
HPI - Abdominal Pain <Isamar Talley, [employer] - Last Filed: 05/04/20 20:32> General Chief Complaint: Abdominal Pain Stated Complaint: Sent over by doctor, intestinal pain,fever Time Seen by Provider: 05/04/20 14:25 Source: patient Mode of arrival: Ambulatory Limitations: no limitations History of Present Illness HPI narrative: The patient is a 54-year-old female former smoker with history of alcoholism who presents with a chief complaint of left-sided flank pain and fever. She states that she started having flank pain several weeks ago, saw her primary care provider who ordered an x-ray to evaluate for kidney stone. This came back negative, so she had a CT abdomen pelvis with contrast on 04/28/2020. She was then started on an antibiotic, which she states she was supposed to take 1 tablet per day, but she accidentally took 2 tablets per day. She does not know what that antibiotic was, but chart review illustrate that she was on Levaquin 500 mg po, so she was actually taking 1000 mg p.o.. She states that she is still having left-sided flank pain, low-grade fevers, denies any dysuria urgency or frequency. She states that she called her primary care provider, who referred her to the emergency department because of continued pain and symptoms. She complains of nausea, no vomiting. She does have history of a cholecystectomy as well as a gastric bypass. She has not taken anything for pain or nausea today. She states she is eating and drinking normally. She has an IUD and denies any vaginal complaints or possibilities of sexually transmitted infections. She states that her pain is in her left side flank, does not radiate to her abdomen and she denies any abdominal pain. Related Data Previous Rx's Medication Instructions Recorded albuterol sulfate [Proventil HFA] 2 puff INH Q4-6HP PRN #1 inh 12/03/17 fluticasone propionate 50 1 spray INTRANASAL BID #15.8 gram 12/03/18 mcg/actuation nasal spray,suspension pantoprazole 40 mg tablet,delayed 40 mg PO DAILY #30 tab 08/20/19 release furosemide 20 mg tablet 20 mg PO DAILY PRN #60 tab 09/12/19 potassium chloride 10 mEq 10 meq PO BID #60 tab 10/14/19 tablet,extended release cetirizine 10 mg tablet 10 mg PO DAILY PRN #90 tab 02/23/20 levothyroxine 125 mcg tablet 125 mcg PO DAILY #90 tab 02/23/20 pramipexole 0.5 mg tablet 0.5 mg PO BEDTIME #90 tab 02/23/20 venlafaxine 150 mg 150 mg PO DAILY #90 cap 02/23/20 capsule,extended release 24 hr aspirin 325 mg tablet 325 mg PO DAILY #30 tab 03/24/20 naltrexone 50 mg tablet 50 mg PO DAILY #90 tab 03/31/20 tamsulosin 0.4 mg capsule 0.4 mg PO BID #30 cap 04/23/20 levofloxacin 500 mg tablet 500 mg PO DAILY #10 tab 04/29/20 cyclobenzaprine 10 mg PO TID PRN #14 tab 05/04/20 diclofenac sodium 2 gram TOP QID PRN 7 Days #100 gram 05/04/20 lidocaine 1 patch TOP DAILY PRN #1 each 05/04/20 ondansetron 4 mg PO Q6H PRN #14 tab 05/04/20 Allergies Allergy/AdvReac Type Severity Reaction Status Date / Time animal dander [ANIMAL DANDER] Allergy Intermediate ITCHY Verified 05/04/20 14:27 WATERY EYES AND SNEEZING grass pollen AdvReac Intermediate itching Verified 05/04/20 14:27 house dust AdvReac Intermediate itching Verified 05/04/20 14:27 Review of Systems <RAKAN Gutierrez - Last Filed: 05/04/20 20:32> Review of Systems Narrative: GENERAL: Denies chills, fatigue, malaise, fever, sweats. HEENT: Denies sinus pain, ear pain, sore throat, difficulty swallowing, dizziness. RESPIRATORY: Denies dyspnea, cough, wheezing, hemoptysis, sputum. CARDIOVASCULAR: Denies chest pain, palpitations, orthopnea, edema, GASTROINTESTINAL: See HPI : See HPI MUSCULOSKELETAL: denies weakness, joint pain, or bony pain SKIN: Denies rash, skin lesions, or other NEUROLOGIC: Denies weakness, headache, numbness, change in speech, confusion, seizures, incoordination. PSYCHIATRIC: No concerning psychosocial issues. 12 point review of systems is negative except for those stated above Patient History <RAKAN Gutierrez - Last Filed: 05/04/20 20:32> Medical History (Updated 05/04/20 @ 19:51 by GABRIELLE Gutierrez) Acquired hypothyroidism (Chronic ~2017) Alcohol abuse (Chronic) Allergic rhinitis (Chronic) Depression (Chronic Unknown) Obstructive sleep apnea (Chronic) Peripheral edema (Chronic ~2010) Restless leg (Chronic) Varicose veins of both lower extremities with complications (Chronic ~2010) Surgical History History of Vasu-en-Y gastric bypass (Resolved) History of thyroidectomy Status post breast lumpectomy Status post laparoscopic cholecystectomy Family History Sister Age: 56 History of breast cancer Social History marital status: household members: family occupational status: employed Smoking Status: Former smoker Tobacco: How many years used: 3 second hand exposure: No alcohol intake: current substance use type: does not use Type(s) of exercise: none Smoking Status: Former smoker alcohol intake frequency: 0-2 drinks per day Substance Use Type: marijuana Exam <RAKAN Gutierrez - Last Filed: 05/04/20 20:32> Narrative Exam Narrative: GENERAL: This is a well-nourished, well-developed patient, appears slightly uncomfortable HEAD: Atraumatic. Normocephalic. No temporal or scalp tenderness. EYES: Pupils equal round and reactive. Extraocular motions intact. No scleral icterus. No injection or drainage. ENT: Nose without bleeding, purulent drainage or septal hematoma. Throat without erythema, tonsillar hypertrophy or exudate. Uvula midline. Airway patent. Slightly dry mucous membranes noted. NECK: Trachea midline. No JVD or lymphadenopathy. Supple, nontender, no meningeal signs. CARDIOVASCULAR: Regular rate and rhythm without murmurs, gallops, or rubs. RESPIRATORY: Clear to auscultation. Breath sounds equal bilaterally. No wheezes, rales, or rhonchi. No cough. No increased respiratory effort. No accessory muscle use noted. GASTROINTESTINAL: Abdomen soft, non-tender, nondistended. No hepato- splenomegaly, or palpable masses. No guarding. Active bowel sounds all 4 quadrants. No pain to abdominal palpation quadrants, repeated times EXTREMITIES: No clubbing, cyanosis, or edema. No joint tenderness, effusion, or edema noted. BACK: Nontender without deformity or crepitance. Flank tenderness noted on the left side, no flank tenderness noted on right NEURO: AOx3. SKIN: No rash or erythema on visible skin Initial Vital Signs Initial Vital Signs: Vital Signs Pulse Oximetry 100 05/04/20 14:26 <Yessi Garcia DO - Last Filed: 05/05/20 12:18> Initial Vital Signs Initial Vital Signs: Vital Signs Pulse Oximetry 100 05/04/20 14:26 Scores <RIO Gutierrez- - Last Filed: 05/04/20 20:32> GCS Marlene coma scale eye opening: Spontaneous Marlene coma scale verbal response: Orientated [place] coma scale motor response: Obey commands [place] coma scale total score: 15 Course <GABRIELLE Gutierrez - Last Filed: 05/04/20 20:32> Orders Ordered: Discontinued Medications Sodium Chloride (Normal Saline 0.9%) 1,000 mls @ 1,000 mls/hr IV BOLUS ONE Stop: 05/04/20 15:37 Last Infusion: 05/04/20 16:04 Dose: 0 mls/hr Documented by: Admin: 05/04/20 15:08 Dose: 1,000 mls/hr Documented by: KIMBERLYN Sodium Chloride (Normal Saline 0.9%) 1,000 mls @ 1,000 mls/hr IV BOLUS ONE Stop: 05/04/20 17:09 Last Infusion: 05/04/20 17:06 Dose: 0 mls/hr Documented by: Admin: 05/04/20 16:12 Dose: 1,000 mls/hr Documented by: KIMBERLYN Lidocaine (Lidoderm) 1 each TOP NOW ONE Stop: 05/04/20 18:39 Last Admin: 05/04/20 19:06 Dose: 1 each Documented by: CINTHIA Ondansetron HCl (Zofran) 4 mg IV NOW ONE Stop: 05/04/20 14:39 Last Admin: 05/04/20 15:07 Dose: 4 mg Documented by: KIMBERLYN Vital Signs Vital signs: Vital Signs - 8 hr 05/04/20 14:26 05/04/20 14:27 05/04/20 14:30 Temperature Pulse Rate 75 72 Respiratory Rate Blood Pressure 161/96 H 158/101 H Pulse Oximetry 100 99 99 05/04/20 14:32 05/04/20 14:35 05/04/20 14:36 Temperature 98.7 F Pulse Rate 68 70 68 Respiratory Rate 20 Blood Pressure 138/91 H 153/87 H 151/89 H Pulse Oximetry 99 99 05/04/20 14:37 05/04/20 14:38 05/04/20 14:39 Temperature Pulse Rate 68 66 69 Respiratory Rate Blood Pressure 146/93 H 140/92 H 138/83 Pulse Oximetry 98 99 97 05/04/20 15:13 05/04/20 15:14 05/04/20 15:30 Temperature Pulse Rate 71 68 72 Respiratory Rate Blood Pressure 133/88 Pulse Oximetry 98 99 98 05/04/20 15:32 05/04/20 16:00 05/04/20 16:01 Temperature Pulse Rate 72 77 Respiratory Rate Blood Pressure 123/81 159/60 H Pulse Oximetry 99 100 99 05/04/20 16:30 05/04/20 16:31 05/04/20 17:15 Temperature Pulse Rate 71 70 80 Respiratory Rate Blood Pressure 139/75 145/85 H Pulse Oximetry 99 99 100 05/04/20 17:30 05/04/20 20:01 Temperature Pulse Rate 74 74 Respiratory Rate 18 Blood Pressure 143/82 H 128/94 H Pulse Oximetry 98 98 <Yessi Garcia, - Last Filed: 05/05/20 12:18> Orders Ordered: Discontinued Medications Sodium Chloride (Normal Saline 0.9%) 1,000 mls @ 1,000 mls/hr IV BOLUS ONE Stop: 05/04/20 15:37 Last Infusion: 05/04/20 16:04 Dose: 0 mls/hr Documented by: Admin: 05/04/20 15:08 Dose: 1,000 mls/hr Documented by: KIMBERLYN Sodium Chloride (Normal Saline 0.9%) 1,000 mls @ 1,000 mls/hr IV BOLUS ONE Stop: 05/04/20 17:09 Last Infusion: 05/04/20 17:06 Dose: 0 mls/hr Documented by: Admin: 05/04/20 16:12 Dose: 1,000 mls/hr Documented by: KIMBERLYN Lidocaine (Lidoderm) 1 each TOP NOW ONE Stop: 05/04/20 18:39 Last Admin: 05/04/20 19:06 Dose: 1 each Documented by: CINTHIA Ondansetron HCl (Zofran) 4 mg IV NOW ONE Stop: 05/04/20 14:39 Last Admin: 05/04/20 15:07 Dose: 4 mg Documented by: KIMBERLYN Vital Signs Vital signs: Vital Signs - 8 hr 05/04/20 14:26 05/04/20 14:27 05/04/20 14:30 Temperature Pulse Rate 75 72 Respiratory Rate Blood Pressure 161/96 H 158/101 H Pulse Oximetry 100 99 99 05/04/20 14:32 05/04/20 14:35 05/04/20 14:36 Temperature 98.7 F Pulse Rate 68 70 68 Respiratory Rate 20 Blood Pressure 138/91 H 153/87 H 151/89 H Pulse Oximetry 99 99 05/04/20 14:37 05/04/20 14:38 05/04/20 14:39 Temperature Pulse Rate 68 66 69 Respiratory Rate Blood Pressure 146/93 H 140/92 H 138/83 Pulse Oximetry 98 99 97 05/04/20 15:13 05/04/20 15:14 05/04/20 15:30 Temperature Pulse Rate 71 68 72 Respiratory Rate Blood Pressure 133/88 Pulse Oximetry 98 99 98 05/04/20 15:32 05/04/20 16:00 05/04/20 16:01 Temperature Pulse Rate 72 77 Respiratory Rate Blood Pressure 123/81 159/60 H Pulse Oximetry 99 100 99 05/04/20 16:30 05/04/20 16:31 05/04/20 17:15 Temperature Pulse Rate 71 70 80 Respiratory Rate Blood Pressure 139/75 145/85 H Pulse Oximetry 99 99 100 05/04/20 17:30 05/04/20 20:01 Temperature Pulse Rate 74 74 Respiratory Rate 18 Blood Pressure 143/82 H 128/94 H Pulse Oximetry 98 98 MDM - Abdominal Pain <RIO Gutierrez-LAURYN - Last Filed: 05/04/20 20:32> Lab Data Result diagrams: 05/04/20 15:06 05/04/20 15:06 Labs: Lab Results 05/04/20 05/04/20 05/04/20 Range/Units 14:55 15:05 15:06 WBC 4.6 (4.5-11.0) X10^3/uL RBC 4.65 (4.0-5.2) X10^6/uL Hgb 13.8 (12.0-16.0) g/dL Hct 41.3 (36-46) % MCV 88.8 (80-100) fL MCH 29.7 (26-34) PG MCHC 33.4 (30-36) % RDW 16.2 H (11.6-14.8) % Plt Count 223 (150-400) X10^3/uL Neut % (Auto) 70.2 (50-75) % Lymph % (Auto) 23.7 L (25-40) % Mccormick % (Auto) 5.9 (3-14) % Eos % (Auto) 0.0 L (2-4) % Baso % (Auto) 0.2 (0-2) % Neut # (Auto) 3200 (7530-7410) /uL Lymph # (Auto) 1100 (1641-2741) /uL Mccormick # (Auto) 300 (0-900) /uL Eos # (Auto) 0 (0-450) /uL Baso # (Auto) 0 (0-100) /uL Sodium (137-145) mmol/L Potassium (3.4-5.1) mmol/L Chloride (98-107) mmol/L Carbon Dioxide (22-32) mmol/L BUN (7-17) mg/dL Creatinine (0.52-1.04) mg/dL Estimated GFR (>60) mL/min BUN/Creatinine Ratio (6-22) Glucose (70-100) mg/dL Lactate 1.1 (0.7-2.1) mmol/L Calcium (8.4-10.2) mg/dL Total Bilirubin (0.2-1.3) mg/dL AST (14-36) IU/L ALT (<35) IU/L Alkaline Phosphatase (38-126) U/L Total Protein (6.3-8.2) g/dL Albumin (3.5-5.0) g/dL Globulin (1.7-4.1) g/dL Albumin/Globulin Ratio (1.0-2.8) Amylase (30-110) U/L Lipase (23-300) U/L Urine Color Yellow Urine Appearance Cloudy Urine pH 6.0 (4.5-8.0) Ur Specific Maben >=1.030 H (1.000-1.035) Urine Protein Negative (Negative) Urine Glucose (UA) Negative (Negative) g/dL Urine Ketones Negative (NEGATIVE) Urine Occult Blood Negative (Negative) Urine Nitrate Negative (Negative) Urine Bilirubin Negative (NEGATIVE) Urine Urobilinogen 0.2 (0.2) E.U./dL Ur Leukocyte Esterase Negative (NEGATIVE) Urine RBC None seen (0-5/HPF) Urine WBC 0-1/hpf (0-5/HPF) Other Crystals 3+ amorphous crystal Amorphous Sediment 3+ Urine Bacteria None seen (None) Ur Culture Indicated? Cult not indicated 05/04/20 Range/Units 15:06 WBC (4.5-11.0) X10^3/uL RBC (4.0-5.2) X10^6/uL Hgb (12.0-16.0) g/dL Hct (36-46) % MCV (80-100) fL MCH (26-34) PG MCHC (30-36) % RDW (11.6-14.8) % Plt Count (150-400) X10^3/uL Neut % (Auto) (50-75) % Lymph % (Auto) (25-40) % Mccormick % (Auto) (3-14) % Eos % (Auto) (2-4) % Baso % (Auto) (0-2) % Neut # (Auto) (6713-4825) /uL Lymph # (Auto) (2320-5961) /uL Mccormick # (Auto) (0-900) /uL Eos # (Auto) (0-450) /uL Baso # (Auto) (0-100) /uL Sodium 139 (137-145) mmol/L Potassium 4.1 (3.4-5.1) mmol/L Chloride 103 (98-107) mmol/L Carbon Dioxide 30 (22-32) mmol/L BUN 12 (7-17) mg/dL Creatinine 0.68 (0.52-1.04) mg/dL Estimated GFR > 60.0 (>60) mL/min BUN/Creatinine Ratio 17.6 (6-22) Glucose 93 (70-100) mg/dL Lactate (0.7-2.1) mmol/L Calcium 8.5 (8.4-10.2) mg/dL Total Bilirubin 0.5 (0.2-1.3) mg/dL AST 113 H (14-36) IU/L ALT 77 H (<35) IU/L Alkaline Phosphatase 130 H (38-126) U/L Total Protein 7.5 (6.3-8.2) g/dL Albumin 4.4 (3.5-5.0) g/dL Globulin 3.1 (1.7-4.1) g/dL Albumin/Globulin Ratio 1.4 (1.0-2.8) Amylase 59 (30-110) U/L Lipase 65 (23-300) U/L Urine Color Urine Appearance Urine pH (4.5-8.0) Ur Specific Mab[place] (1.000-1.035) Urine Protein (Negative) Urine Glucose (UA) (Negative) g/dL Urine Ketones (NEGATIVE) Urine Occult Blood (Negative) Urine Nitrate (Negative) Urine Bilirubin (NEGATIVE) Urine Urobilinogen (0.2) E.U./dL Ur Leukocyte Esterase (NEGATIVE) Urine RBC (0-5/HPF) Urine WBC (0-5/HPF) Other Crystals Amorphous Sediment Urine Bacteria (None) Ur Culture Indicated? Point of care testing: Point of Care Testing Test Results Negative Urine Dip Bedside Urine Glucose Negative Bedside Urine Bilirubin - Negative Bedside Urine Ketone - Negative Urine Specific Maben 1.030 Bedside Urine Occult Blood - Negative Bedside Urine pH 6.0 Bedside Urine Protein +/- 15 Bedside Urine Urobilinogen - Negative Bedside Urine Nitrite - Negative Bedside Urine Leukocytes - Negative Esterase MDM Narrative Medical decision making narrative: The patient is a 54-year-old female who presents with a chief complaint of continued left-sided flank pain. Her lab work is reassuring, no leukocytosis, normal renal function, no nitrates leukocyte esterase or blood on urinalysis. Furthermore procalcitonin is negative, her lactate is normal. Given the notice of crystals in her urine, we elected to scanner for CT KUB to evaluate for stones. This came back negative. However it is possible that she has already passed a kidney stone. Previously s een thickened loops of small bowel is less noticeable furthermore. It is possible that doubling up on her dose of Levaquin has contributed to her nausea. She felt much improved after the Zofran, I discussed at length taking a probiotic. She felt mostly improved after lidocaine patch sure flank, so we elected a trial of lidocaine patches, Voltaren, and muscle relaxers. Unfortunately we are limited in the emergency department as far as what we can do for pain as she drove herself here and was not able to find a ride home. Furthermore we cannot do NSAIDs due to Vasu-en-Y gastric bypass. However discussed at length strict follow-up with primary care provider, come back to emergency department for any acute concerns. She does endorse that the lidocaine patches given her quite a bit of relief. We did discuss the possibility of a trial of steroids given the possibility of inflammatory bowel on 04/28/2020 but will hold on this point given that his improved on CT. Discussed at length come back to emergency department for any acute concerns. Patient has no questions or concerns upon discharge and states understanding return precautions as well as follow-up care. <Yessi Garica, DO - Last Filed: 05/05/20 12:18> Lab Data Labs: Lab Results 05/04/20 05/04/20 05/04/20 Range/Units 14:55 15:05 15:06 WBC 4.6 (4.5-11.0) X10^3/uL RBC 4.65 (4.0-5.2) X10^6/uL Hgb 13.8 (12.0-16.0) g/dL Hct 41.3 (36-46) % MCV 88.8 (80-100) fL MCH 29.7 (26-34) PG MCHC 33.4 (30-36) % RDW 16.2 H (11.6-14.8) % Plt Count 223 (150-400) X10^3/uL Neut % (Auto) 70.2 (50-75) % Lymph % (Auto) 23.7 L (25-40) % Mccormick % (Auto) 5.9 (3-14) % Eos % (Auto) 0.0 L (2-4) % Baso % (Auto) 0.2 (0-2) % Neut # (Auto) 3200 (7503-7511) /uL Lymph # (Auto) 1100 (7870-9953) /uL Mccormick # (Auto) 300 (0-900) /uL Eos # (Auto) 0 (0-450) /uL Baso # (Auto) 0 (0-100) /uL Sodium (137-145) mmol/L Potassium (3.4-5.1) mmol/L Chloride (98-107) mmol/L Carbon Dioxide (22-32) mmol/L BUN (7-17) mg/dL Creatinine (0.52-1.04) mg/dL Estimated GFR (>60) mL/min BUN/Creatinine Ratio (6-22) Glucose (70-100) mg/dL Lactate 1.1 (0.7-2.1) mmol/L Calcium (8.4-10.2) mg/dL Total Bilirubin (0.2-1.3) mg/dL AST (14-36) IU/L ALT (<35) IU/L Alkaline Phosphatase (38-126) U/L Total Protein (6.3-8.2) g/dL Albumin (3.5-5.0) g/dL Globulin (1.7-4.1) g/dL Albumin/Globulin Ratio (1.0-2.8) Amylase (30-110) U/L Lipase (23-300) U/L Urine Color Yellow Urine Appearance Cloudy Urine pH 6.0 (4.5-8.0) Ur Specific Maben >=1.030 H (1.000-1.035) Urine Protein Negative (Negative) Urine Glucose (UA) Negative (Negative) g/dL Urine Ketones Negative (NEGATIVE) Urine Occult Blood Negative (Negative) Urine Nitrate Negative (Negative) Urine Bilirubin Negative (NEGATIVE) Urine Urobilinogen 0.2 (0.2) E.U./dL Ur Leukocyte Esterase Negative (NEGATIVE) Urine RBC None seen (0-5/HPF) Urine WBC 0-1/hpf (0-5/HPF) Other Crystals 3+ amorphous crystal Amorphous Sediment 3+ Urine Bacteria None seen (None) Ur Culture Indicated? Cult not indicated 05/04/20 Range/Units 15:06 WBC (4.5-11.0) X10^3/uL RBC (4.0-5.2) X10^6/uL Hgb (12.0-16.0) g/dL Hct (36-46) % MCV (80-100) fL MCH (26-34) PG MCHC (30-36) % RDW (11.6-14.8) % Plt Count (150-400) X10^3/uL Neut % (Auto) (50-75) % Lymph % (Auto) (25-40) % Mccormick % (Auto) (3-14) % Eos % (Auto) (2-4) % Baso % (Auto) (0-2) % Neut # (Auto) (0439-5043) /uL Lymph # (Auto) (8862-5381) /uL Mccormick # (Auto) (0-900) /uL Eos # (Auto) (0-450) /uL Baso # (Auto) (0-100) /uL Sodium 139 (137-145) mmol/L Potassium 4.1 (3.4-5.1) mmol/L Chloride 103 (98-107) mmol/L Carbon Dioxide 30 (22-32) mmol/L BUN 12 (7-17) mg/dL Creatinine 0.68 (0.52-1.04) mg/dL Estimated GFR > 60.0 (>60) mL/min BUN/Creatinine Ratio 17.6 (6-22) Glucose 93 (70-100) mg/dL Lactate (0.7-2.1) mmol/L Calcium 8.5 (8.4-10.2) mg/dL Total Bilirubin 0.5 (0.2-1.3) mg/dL AST 113 H (14-36) IU/L ALT 77 H (<35) IU/L Alkaline Phosphatase 130 H (38-126) U/L Total Protein 7.5 (6.3-8.2) g/dL Albumin 4.4 (3.5-5.0) g/dL Globulin 3.1 (1.7-4.1) g/dL Albumin/Globulin Ratio 1.4 (1.0-2.8) Amylase 59 (30-110) U/L Lipase 65 (23-300) U/L Urine Color Urine Appearance Urine pH (4.5-8.0) Ur Specific Maben (1.000-1.035) Urine Protein (Negative) Urine Glucose (UA) (Negative) g/dL Urine Ketones (NEGATIVE) Urine Occult Blood (Negative) Urine Nitrate (Negative) Urine Bilirubin (NEGATIVE) Urine Urobilinogen (0.2) E.U./dL Ur Leukocyte Esterase (NEGATIVE) Urine RBC (0-5/HPF) Urine WBC (0-5/HPF) Other Crystals Amorphous Sediment Urine Bacteria (None) Ur Culture Indicated? Point of care testing: Point of Care Testing Test Results Negative Urine Dip Bedside Urine Glucose Negative Bedside Urine Bilirubin - Negative Bedside Urine Ketone - Negative Urine Specific Maben 1.030 Bedside Urine Occult Blood - Negative Bedside Urine pH 6.0 Bedside Urine Protein +/- 15 Bedside Urine Urobilinogen - Negative Bedside Urine Nitrite - Negative Bedside Urine Leukocytes - Negative Esterase Discharge Plan Departure Patient Disposition: Home Clinical Impression: Flank pain, Nausea, Acute dehydration Discharge Date/Time: 05/04/20 20:06 Instructions: DI for Dehydration -- Adult, DI for Nausea -- Adult, DI for Flank Pain Activity Restrictions/Additional Instructions: Thank you for trusting us with your care today. As I discussed, your labs came back well in your imaging came back well also. He do have signs of dehydration given your urine, and also noted to have some crystals in your urine I sent for prescriptions to [facility] for you. This includes a muscle relaxer, do not take this and drive or combine it with anything sedating such as alcohol. I also sent in a prescription of an anti-inflammatory cream, the lidocaine patches and Zofran. Please follow-up with primary care provider in the next few days. Please come back to emergency department for any acute concerns. This includes concern of heart attack, stroke, inability keep down fluids, abdominal pain with fever etcetera Prescriptions: New lidocaine 5 % adhesive patch,medicated 1 patch TOP DAILY PRN (Reason: pain) Qty: 1 RF: 0 diclofenac sodium 1 % gel 2 gram TOP QID PRN (Reason: pain ) 7 Days Qty: 100 RF: 0 cyclobenzaprine 10 mg tablet 10 mg PO TID PRN (Reason: muscle spasm) Qty: 14 RF: 0 ondansetron 4 mg tablet,disintegrating 4 mg PO Q6H PRN (Reason: nausea and vomiting) Qty: 14 RF: 0 No Action albuterol sulfate [Proventil HFA] 90 MCG/PUFF HFA aerosol inhaler 2 puff INH Q4-6HP PRNQty: 1 RF: 3 fluticasone propionate 50 mcg/actuation spray,suspension 1 spray Intranasal BID Qty: 15.8 RF: 3 furosemide 20 mg tablet 20 mg PO DAILY PRN (Reason: edema) Qty: 60 RF: 3 potassium chloride 10 mEq tablet extended release 10 meq PO BID Qty: 60 RF: 3 cetirizine [All Day Allergy (cetirizine)] 10 mg tablet 10 mg PO DAILY PRN (Reason: allergy symptoms) Qty: 90 RF: 3 levothyroxine 125 mcg tablet 125 mcg PO DAILY Qty: 90 RF: 3 venlafaxine 150 mg capsule,extended release 24hr 150 mg PO DAILY Qty: 90 RF: 3 pramipexole 0.5 mg tablet 0.5 mg PO BEDTIME Qty: 90 RF: 1 aspirin 325 mg tablet 325 mg PO DAILY Qty: 30 RF: 5 naltrexone 50 mg tablet 50 mg PO DAILY Qty: 90 RF: 0 levofloxacin 500 mg tablet 500 mg PO DAILY Qty: 10 RF: 1 pantoprazole 40 mg tablet,delayed release (DR/EC) 40 mg PO DAILY Qty: 30 RF: 3 tamsulosin 0.4 mg capsule 0.4 mg PO BID Qty: 30 RF: 3 Referrals: Jesse Jain MD [Primary Care Provider] - <Yessi Garcia DO - Last Filed: 05/05/20 12:18> Cosign ED Attending Cosignature Attestation: I was immediately available in the department for consultation. Documentation has been reviewed. I agree with assessment and plan.
[2020-05-04] MEDS: ONDANSETRON 4 MG/2 ML INJ IV (15:07)
[2020-05-04] MEDS: SODIUM CHLORIDE 0.9% 1,000 ML 1000 ML IV ×2 (15:08→16:12)
[2020-05-04 15:20] LABS: Add Manual Diff / Slide Review NO; Basophils Absolute Auto 0 /uL (0-100); Basophils Percent Auto 0.2 % (0-2); Eosinophils Absolute Auto 0 /uL (0-450); Hematocrit 41.3 % (36-46); Hemoglobin 13.8 g/dL (12.0-16.0); Lymphocytes Absolute Auto 1100 /uL (1100-4500); Lymphocytes Percent Auto 23.7 % (25-40); Mean Corpuscular HGB Conc 33.4 % (30-36); Mean Corpuscular Hemoglobin 29.7 PG (26-34); Mean Corpuscular Volume 88.8 fL (80-100); Monocytes Absolute Auto 300 /uL (0-900); Monocytes Percent Auto 5.9 % (3-14); Neutrophils Absolute Auto 3200 /uL (1500-7000); Neutrophils Percent Auto 70.2 % (50-75); Platelet Count 223 X10^3/uL (150-400); Red Blood Cell Count 4.65 X10^6/uL (4.0-5.2); Red Cell Distribution Width 16.2 % (11.6-14.8); White Blood Cell Count 4.6 X10^3/uL (4.5-11.0)
[2020-05-04 15:36] LABS: Alanine Aminotransferase 77 IU/L (<35); Albumin 4.4 g/dL (3.5-5.0); Albumin Globulin Ratio 1.4 (1.0-2.8); Alkaline Phosphatase 130 U/L (38-126); Amylase 59 U/L (30-110); Aspartate Aminotransferase 113 IU/L (14-36); BUN Creatinine Ratio 17.6 (6-22); Bilirubin Total 0.5 mg/dL (0.2-1.3); Blood Urea Nitrogen 12 mg/dL (7-17); Calcium 8.5 mg/dL (8.4-10.2); Carbon Dioxide 30 mmol/L (22-32); Chloride 103 mmol/L (98-107); Estimated Glomerular Filt Rate > 60.0 mL/min (>60); Globulin 3.1 g/dL (1.7-4.1); Glucose 93 mg/dL (70-100); HEMOLYSIS 18 (0-50); Lipase 65 U/L (23-300); Potassium 4.1 mmol/L (3.4-5.1); Sodium 139 mmol/L (137-145); Total Protein 7.5 g/dL (6.3-8.2)
[2020-05-04 15:38] LABS: Bacteria Urine None Seen; RBC Urine None Seen (0-5/HPF)
[2020-05-04 15:40] LABS: Appearance Urine UA CLOUDY; Bilirubin Urine UA NEGATIVE (NEGATIVE); Color Urine UA YELLOW; Glucose Urine UA NEGATIVE (Negative); Ketones Urine UA NEGATIVE (NEGATIVE); Leukocyte Esterase Urine UA NEGATIVE (NEGATIVE); Nitrite Urine UA NEGATIVE (Negative); Occult Blood Urine UA NEGATIVE (Negative); Protein Urine UA NEGATIVE (Negative); Specific Gravity Urine UA >=1.030 (1.000-1.035); Urobilinogen Urine UA 0.2 E.U./dL (0.2)
[2020-05-04 15:48] LABS: Amorphous Sediment Urine 3+; WBC Urine 0-1/HPF (0-5/HPF)
[2020-05-04 15:49] LABS: Culture Indicated Urine Cult Not Indicated; Other Crystals Urine 3+ Amorphous Crystal
[2020-05-04 16:02] LABS: Lactate (Lactic Acid) 1.1 mmol/L (0.7-2.1)
--- NOTE | 2020-05-04 16:56 | DI.CT.S_ITS ---
PROCEDURE: CT KIDNEY URETER BLADDER (KUB) INDICATIONS: flank pain, crystals in urine TECHNIQUE: Noncontrast 5 mm thick sections acquired from the diaphragms to the symphysis. 5 mm thick coronal and sagittal reformats were then performed. For radiation dose reduction, the following was used: automated exposure control, adjustment of mA and/or kV according to patient size. COMPARISON: [facility], CT, CT ABDOMEN PELVIS W CON, 04/28/2020, 12:55. FINDINGS: Image quality: Excellent. Lung bases: Lung bases are clear. Heart size is normal. Urinary system: Both kidneys are normal in size. No kidney stones. No hydronephrosis or perinephric fat stranding. Both ureters appear non-dilated throughout their expected courses. Bladder is decompressed; no calcified bladder stones. Other solid organs: Liver is normal in size. Gallbladder is surgically absent. Pancreas is normal in contours. Spleen is normal in size. No adrenal nodules. Peritoneum and bowel: Post Vasu-en-Y gastric bypass. Thickening of the loops of small bowel in the left upper quadrant seen on the prior CT is less apparent. No bowel obstruction. Appendix is normal. No free fluid or air. Nodes and vessels: No retroperitoneal or mesenteric adenopathy by size criteria. Aorta and inferior vena cava are normal in caliber. Abdominal wall: No ventral hernias. Midline abdominal wall scar. Pelvis: No free pelvic fluid. No inguinal hernias or adenopathy. IUD centered in the uterus. Uterus is retroverted. Bones: No suspicious bony lesions. No vertebral body compression fractures. IMPRESSION: 1. No radiopaque kidney stones. 2. No hydronephrosis. 3. Previously seen thickened loops of small bowel the left upper quadrant on recent comparison CT is less conspicuous. 4. No bowel obstruction. Post Vasu-en-Y gastric bypass. Dictated by: Jono Herrera M.D. on 05/04/2020 at 17:21 Approved by: Jono Herrera M.D. on 05/04/2020 at 17:27
[2020-05-04] MEDS: LIDOCAINE PATCH 1 EACH ADH..PATCH TOP (19:06)
== END 2020-05-04 20:06 | disposition home or self-care (01) ==
PROVIDERS: Emergency Provider Nurse Practitioner Family; PCP Internal Medicine
DX: R10.9 Unspecified abdominal pain (principal); R11.0 Nausea; E86.0 Dehydration; R50.9 Fever, unspecified; Z97.5 Presence of (intrauterine) contraceptive device
CPT/HCPCS: 36415; 74176; 80053; 81001; 81003; 81025; 82150; 83605; 83690; 85025; 96361; 96374; 99284; J2405

== ENCOUNTER → 2020-09-11 09:33 | Outpatient (CLI) | payer OTHER, MEDICAID, SELFPAY ==
[2020-09-11 10:46] LABS: Add Manual Diff / Slide Review NO; Basophils Absolute Auto 0 /uL (0-100); Basophils Percent Auto 0.1 % (0-2); Eosinophils Absolute Auto 0 /uL (0-450); Hematocrit 37.8 % (36-46); Hemoglobin 12.3 g/dL (12.0-16.0); Lymphocytes Absolute Auto 800 /uL (1100-4500); Lymphocytes Percent Auto 18.8 % (25-40); Mean Corpuscular HGB Conc 32.6 % (30-36); Mean Corpuscular Hemoglobin 29.5 PG (26-34); Mean Corpuscular Volume 90.2 fL (80-100); Monocytes Absolute Auto 400 /uL (0-900); Monocytes Percent Auto 7.9 % (3-14); Neutrophils Absolute Auto 3200 /uL (1500-7000); Neutrophils Percent Auto 73.2 % (50-75); Platelet Count 225 X10^3/uL (150-400); Red Blood Cell Count 4.19 X10^6/uL (4.0-5.2); Red Cell Distribution Width 16.5 % (11.6-14.8); White Blood Cell Count 4.4 X10^3/uL (4.5-11.0)
[2020-09-11 10:59] LABS: Alanine Aminotransferase 19 IU/L (<35); Albumin 3.9 g/dL (3.5-5.0); Albumin Globulin Ratio 1.3 (1.0-2.8); Alkaline Phosphatase 112 U/L (38-126); Aspartate Aminotransferase 23 IU/L (14-36); BUN Creatinine Ratio 12.5 (6-22); Bilirubin Total 0.3 mg/dL (0.2-1.3); Blood Urea Nitrogen 7 mg/dL (7-17); Calcium 8.5 mg/dL (8.4-10.2); Carbon Dioxide 31 mmol/L (22-32); Chloride 105 mmol/L (98-107); Cholesterol 148 mg/dL (140-199); Estimated Glomerular Filt Rate > 60.0 mL/min (>60); Glucose 100 mg/dL (70-100); HDL Cholesterol 91 mg/dL (40-60); HEMOLYSIS < 15 (0-50); LDL Cholesterol Calculated 40 mg/dL (<100); Potassium 3.6 mmol/L (3.4-5.1); Sodium 140 mmol/L (137-145); Total Protein 6.9 g/dL (6.3-8.2); Triglycerides 84 mg/dL (35-150)
[2020-09-11 11:31] LABS: Thyroid Stimulating Hormone 2.04 uIU/mL (0.47-4.68)
[2020-09-11 12:05] LABS: Folate > 20.0 ng/mL (2.76-20.0); Vitamin B12 931 pg/mL (239-931)
[2020-09-11 13:15] LABS: Vitamin D 25 Hydroxy (D3) 28.8 ng/mL (30.0-100.0)
== END ==
PROVIDERS: PCP Internal Medicine; Referring Provider Physician Assistant; Visit Provider Physician Assistant
DX: R53.83 Other fatigue (principal); E03.9 Hypothyroidism, unspecified; F10.10 Alcohol abuse, uncomplicated; Z98.84 Bariatric surgery status; R01.1 Cardiac murmur, unspecified; Z13.6 Encounter for screening for cardiovascular disorders
CPT/HCPCS: 36415; 80053; 80061; 82306; 82607; 82746; 84443; 85025

== ENCOUNTER → 2020-10-15 07:57 | Outpatient (CLI) | payer OTHER, MEDICAID, SELFPAY ==
--- NOTE | 2020-10-15 | DI.ECHO.S_ITS ---
[facility] +---------+ : : [address] [place] : : : : [id number] : : : : Phone: [phone] Echocardiogram Report + + :Name: RADHA SANDOVAL Study Date: 10/15/2020 Height: 62 in : [id number] 210 lb : : Gender: Female BSA: 2.0 m2 : :: 1965 Age: 55 yrs BP: 153/89 mmHg: :Reason For Study: Murmur : : Performed By: Susan Pollock : :Referring: CHARLEEN CAMPOS : + + Interpretation Summary 1) Normal left ventricular thickness, size, wall motion, and systolic function (EF 60-65%). 2) Normal right ventricular size and function. 3) The left atrium is moderately dilated. The interatrial septum bows toward right atrium consistent with elevated left atrial pressure. There is no Doppler evidence for an interatrial shunt. 4) There is mild to moderate mitral regurgitation. 5) Hypertension present during the study (BP 153/89mmHg). 6) No prior Echo available for comparison. Procedure: A two-dimensional transthoracic echocardiogram with color flow and Doppler was performed. The study quality was technically adequate. Images from the parasternal window were difficult to obtain and are suboptimal in quality. There is no prior echocardiogram noted for this patient. The patient was in normal sinus rhythm during the exam. Left Ventricle: The left ventricle is normal in size and wall thickness. Proximal septal thickening is noted. The ejection fraction is estimated to be 60-65%. Left ventricular systolic function appears normal without focal wall motion abnormalities. Diastolic function could not be accurately assessed due to contradictory data. Right Ventricle: The right ventricle is normal in size and function. Atria: The left atrium is moderately dilated. Right atrial size is normal. There is no Doppler evidence for an interatrial shunt. The interatrial septum bows toward right atrium consistent with elevated left atrial pressure. Mitral Valve: The mitral valve is normal in structure and function. There is mild mitral annular calcification. There is mild to moderate mitral regurgitation. Aortic Valve: The aortic valve is not well visualized. The aortic valve opens well. There is no aortic valve stenosis. No aortic regurgitation is present. Tricuspid Valve: The tricuspid valve is normal in structure and function. There is mild tricuspid regurgitation. The right ventricular systolic pressure is estimated to be at least 25 mmHg based on an estimated right atrial pressure of 3 mm Hg. Pulmonic Valve: The pulmonic valve is not well visualized. There is no pulmonic valvular stenosis. There is mild pulmonic regurgitation. Great Vessels: The aortic root is normal size. The ascending aorta is normal in size. The pulmonary artery is not well visualized, but is probably normal size. The IVC is of normal diameter and collapses greater than 50% with a sniff. This suggests a low right atrial pressure of 3 mm Hg. Pericardium/ Pleura There is no pericardial effusion. MMode/2D Measurements & Calculations LVIDd: 4.5 cm LVOT diam: 2.0 cm LVIDs: 4.0 cm Ao root diam: 3.5 cm FS: 11.1 % asc Aorta Diam: 3.3 cm IVSd: 0.89 cm LVPWd: 0.78 cm LV au. diameter/BSA (cm/m^2): 2.3 LV sys. diameter/BSA (cm/m^2): 2.0 LA A2 area: 25.1 cm2 RA long axis: 5.0 cm LA A4 area: 24.2 cm2 RA area: 13.6 cm2 LA length (vol): 6.2 cm RA vol: 31.6 ml LA vol: 83.2 ml RA : 16.2 ml/m2 LA vol index: 42.6 ml/m2 IVC diam: 1.8 cm RVD1 (basal): 3.0 cm TAPSE: 2.8 cm Doppler Measurements & Calculations Ao V2 max: 187.2 cm/sec LVOT Max Cesar: 138.5 cm/sec Ao V2 mean: 127.2 cm/sec LV V1 max P.7 mmHg Ao max P.0 mmHg LV V1 VTI: 31.1 cm Ao mean P.2 mmHg DEBORAH(I,D): 2.5 cm2 Ao V2 VTI: 37.6 cm DEBORAH(V,D): 2.3 cm2 sev ratio: 0.83 DEBORAH indexed to BSA (cm^2/m^2): 1.3 MV E max cesar: 90.8 cm/sec TR max cesar: 231.8 cm/sec MV A max cesar: 108.7 cm/sec TR max P.5 mmHg MV E/A: 0.83 PA V2 max: 85.8 cm/sec Med Peak E' Cesar: 8.5 cm/sec PA V2 mean: 60.2 cm/sec E/E' med: 10.6 PA mean P.6 mmHg Lat Peak E' Cesar: 9.2 cm/sec PA Accel Time: 0.07 sec E/E' lat: 9.9 E/e' average: 10.3 MV dec time: 0.20 sec MR ERO: 0.04 cm2 MR VTI: 199.7 cm MR PISA: 0.95 cm2 MR flow rate: 22.6 cm3/sec MR PISA radius: 0.39 cm SV(LVOT): 95.3 ml Reading Physician:10:16 AM
== END ==
PROVIDERS: PCP Physician Assistant; Referring Provider Physician Assistant; Visit Provider Physician Assistant
DX: I08.1 Rheumatic disorders of both mitral and tricuspid valves (principal); R01.1 Cardiac murmur, unspecified; R53.83 Other fatigue; R60.9 Edema, unspecified
CPT/HCPCS: 93306

== ENCOUNTER 2020-12-23 22:34 | Emergency (ER) | payer OTHER, MEDICAID, SELFPAY ==
[2020-12-23 22:44] VITALS: BP 153/93; PULSE 84; RESP 20; TEMP 36.6; O2SAT 96
[2020-12-23 23:17] LABS: Add Manual Diff / Slide Review NO; Basophils Absolute Auto 0 /uL (0-100); Basophils Percent Auto 0.4 % (0-2); Eosinophils Absolute Auto 0 /uL (0-450); Eosinophils Percent Auto 0.1 % (2-4); Hematocrit 39.4 % (36-46); Hemoglobin 12.6 g/dL (12.0-16.0); Lymphocytes Absolute Auto 1900 /uL (1100-4500); Mean Corpuscular HGB Conc 31.9 % (30-36); Mean Corpuscular Hemoglobin 28.9 PG (26-34); Mean Corpuscular Volume 90.4 fL (80-100); Monocytes Absolute Auto 600 /uL (0-900); Monocytes Percent Auto 9.6 % (3-14); Neutrophils Absolute Auto 3800 /uL (1500-7000); Neutrophils Percent Auto 59.9 % (50-75); Platelet Count 178 X10^3/uL (150-400); Red Blood Cell Count 4.36 X10^6/uL (4.0-5.2); Red Cell Distribution Width 16.1 % (11.6-14.8); White Blood Cell Count 6.3 X10^3/uL (4.5-11.0)
[2020-12-23 23:27] LABS: BUN Creatinine Ratio 13.8 (6-22); Blood Urea Nitrogen 9 mg/dL (7-17); Calcium 9.2 mg/dL (8.4-10.2); Carbon Dioxide 24 mmol/L (22-32); Chloride 112 mmol/L (98-107); Estimated Glomerular Filt Rate > 60.0 mL/min (>60); Ethanol (ETOH) 279 mg/dL; Glucose 103 mg/dL (70-100); HEMOLYSIS 20 (0-50); Potassium 4.4 mmol/L (3.4-5.1); Sodium 144 mmol/L (137-145)
--- NOTE | 2020-12-23 23:27 | ED_ITS ---
HPI - General Adult General Chief complaint: Toxicology Problem Stated complaint: wants to be cleared for ETOH Detox Time Seen by Provider: 12/23/20 22:53 Source: patient Mode of arrival: Ambulatory Limitations: no limitations History of Present Illness HPI narrative: Patient is a 55-year-old female known alcoholic who has been drinking daily for the past year here for evaluation requesting medical clearance for alcohol detox. She states that a couple weeks ago she lost her son to a heroin overdose. She has had an increase in her drinking since then. One year ago she attended detox/rehab for then started drinking immediately after she was discharged. She denies any other drugs or alcohol. Related Data Previous Rx's Medication Instructions Recorded albuterol sulfate [Proventil HFA] 2 puff INH Q4-6HP PRN #1 inh 12/03/17 fluticasone propionate 50 1 spray INTRANASAL BID #15.8 gram 12/03/18 mcg/actuation nasal spray,suspension pantoprazole 40 mg tablet,delayed 40 mg PO DAILY #30 tab 08/20/19 release furosemide 20 mg tablet 20 mg PO DAILY PRN #60 tab 09/12/19 potassium chloride 10 mEq 10 meq PO BID #60 tab 10/14/19 tablet,extended release cetirizine 10 mg tablet 10 mg PO DAILY PRN #90 tab 02/23/20 levothyroxine 125 mcg tablet 125 mcg PO DAILY #90 tab 02/23/20 pramipexole 0.5 mg tablet 0.5 mg PO BEDTIME #90 tab 02/23/20 venlafaxine 150 mg 150 mg PO DAILY #90 cap 02/23/20 capsule,extended release 24 hr aspirin 325 mg tablet 325 mg PO DAILY #30 tab 03/24/20 naltrexone 50 mg tablet 50 mg PO DAILY #90 tab 03/31/20 levofloxacin 500 mg tablet 500 mg PO DAILY #10 tab 04/29/20 lorazepam [Ativan] 1 mg PO Q4H PRN #6 tab 12/24/20 Allergies Allergy/AdvReac Type Severity Reaction Status Date / Time animal dander [ANIMAL DANDER] Allergy Intermediate ITCHY Verified 05/04/20 14:27 WATERY EYES AND SNEEZING grass pollen AdvReac Intermediate itching Verified 05/04/20 14:27 house dust AdvReac Intermediate itching Verified 05/04/20 14:27 Review of Systems Constitutional Constitutional: Denies headache(s) ENT Ears, Nose, Mouth, and Throat: Denies vertigo and Denies headache(s) Cardiovascular Cardiovascular: Denies chest pain and Denies dyspnea Respiratory Respiratory: Denies dyspnea Gastrointestinal Gastrointestinal: Denies abdominal pain Integumentary/Breasts Skin/Breast: Denies rash Neurologic Neurologic: Denies confusion, Denies vertigo and Denies headache(s) Comments: Alcohol intoxication Psychiatric Psychiatric: Denies confusion Comments: Alcohol these Hematologic/Lymphatic On Anticoagulants: No Allergic/Immunologic Allergic/Immunologic: Denies urticaria Patient History Medical History Acquired hypothyroidism (~2016) Alcohol abuse Allergic rhinitis Depression (Unknown) Obstructive sleep apnea Peripheral edema (~2010) Restless leg Varicose veins of both lower extremities with complications (~2010) Surgical History History of Vasu-en-Y gastric bypass History of thyroidectomy Status post breast lumpectomy Status post laparoscopic cholecystectomy Family History Sister Age: 57 History of breast cancer Social History marital status: household members: family occupational status: employed Smoking Status: Former smoker Tobacco: How many years used: 3 second hand exposure: No alcohol intake: current substance use type: does not use Type(s) of exercise: none Smoking Status: Former smoker alcohol intake frequency: 3 or more drinks per day Alcohol type: beer, wine and hard liquor Substance Use Type: marijuana Exam Initial Vital Signs Initial Vital Signs: Vital Signs Temperature 97.9 F 12/23/20 22:44 Pulse Rate 84 12/23/20 22:44 Respiratory Rate 20 12/23/20 22:44 Blood Pressure 153/93 H 12/23/20 22:44 Pulse Oximetry 96 12/23/20 22:44 Const General: comfortable Limitations: other limitations (Intoxicated) HENMT Head: normal to inspection and normocephalic Resp Effort & Inspection: normal respiratory effort Auscultation: clear to auscultation bilaterally Cardio Rate: regular rate Rhythm: regular rhythm Skin Lesions: no lesions Rashes: no rashes Neuro General: patient alert, patient awake and moves all extremities Extrem General: normal to inspection Psych Appearance: grossly normal and well kempt Course Orders Ordered: ED Orders 12/23/20 23:10 Basic Metabolic Panel Stat Complete Blood Count AUTO DIFF Stat Ethanol (ETOH) Stat 12/24/20 00:15 COVID19 Stat 12/24/20 01:28 Ethanol (ETOH) Stat 12/24/20 03:46 Test Urine Stat Vital Signs Vital signs: Vital Signs - 8 hr 12/23/20 22:44 Temperature 97.9 F Pulse Rate 84 Respiratory Rate 20 Blood Pressure 153/93 H Pulse Oximetry 96 Medical Decision Making Lab Data Lab results reviewed: Yes I reviewed the patient's lab results. Result diagrams: 12/23/20 23:10 12/23/20 23:10 Labs: Lab Results 12/23/20 12/23/20 12/23/20 Range/Units 23:10 23:10 23:44 WBC 6.3 (4.5-11.0) X10^3/uL RBC 4.36 (4.0-5.2) X10^6/uL Hgb 12.6 (12.0-16.0) g/dL Hct 39.4 (36-46) % MCV 90.4 (80-100) fL MCH 28.9 (26-34) PG MCHC 31.9 (30-36) % RDW 16.1 H (11.6-14.8) % Plt Count 178 (150-400) X10^3/uL Neut % (Auto) 59.9 (50-75) % Lymph % (Auto) 30.0 (25-40) % [place] % (Auto) 9.6 (3-14) % Eos % (Auto) 0.1 L (2-4) % Baso % (Auto) 0.4 (0-2) % Neut # (Auto) 3800 (0624-4735) /uL Lymph # (Auto) 1900 (7592-4618) /uL [place] # (Auto) 600 (0-900) /uL Eos # (Auto) 0 (0-450) /uL Baso # (Auto) 0 (0-100) /uL Sodium 144 (137-145) mmol/L Potassium 4.4 (3.4-5.1) mmol/L Chloride 112 H (98-107) mmol/L Carbon Dioxide 24 (22-32) mmol/L BUN 9 (7-17) mg/dL Creatinine 0.65 (0.52-1.04) mg/dL Estimated GFR > 60.0 (>60) mL/min BUN/Creatinine Ratio 13.8 (6-22) Glucose 103 H (70-100) mg/dL Calcium 9.2 (8.4-10.2) mg/dL Urine Test Negative (Negative) U Opiates 300ng/mL cut (Negative) Ur Oxycodone Screen (Negative) Urine Methadone Screen (Negative) Ur Barbiturates Screen (Negative) U Tricyclic Antidepress (Negative) Ur Phencyclidine Scrn (Negative) Ur Amphetamines Screen (Negative) U Methamphetamines Scrn (Negative) Ur MDMA Scrn (Ecstasy) (Negative) U Benzodiazepines Scrn (Negative) Urine Cocaine Screen (Negative) U Marijuana (THC) Screen (Negative) Ethyl Alcohol 279 H ( - 10) mg/dL SARS-CoV-2 (PCR) (Negative) 12/23/20 12/24/20 12/24/20 Range/Units 23:49 00:15 01:28 WBC (4.5-11.0) X10^3/uL RBC (4.0-5.2) X10^6/uL Hgb (12.0-16.0) g/dL Hct (36-46) % MCV (80-100) fL MCH (26-34) PG MCHC (30-36) % RDW (11.6-14.8) % Plt Count (150-400) X10^3/uL Neut % (Auto) (50-75) % Lymph % (Auto) (25-40) % [place] % (Auto) (3-14) % Eos % (Auto) (2-4) % Baso % (Auto) (0-2) % Neut # (Auto) (1437-2098) /uL Lymph # (Auto) (4217-8851) /uL [place] # (Auto) (0-900) /uL Eos # (Auto) (0-450) /uL Baso # (Auto) (0-100) /uL Sodium (137-145) mmol/L Potassium (3.4-5.1) mmol/L Chloride (98-107) mmol/L Carbon Dioxide (22-32) mmol/L BUN (7-17) mg/dL Creatinine (0.52-1.04) mg/dL Estimated GFR (>60) mL/min BUN/Creatinine Ratio (6-22) Glucose (70-100) mg/dL Calcium (8.4-10.2) mg/dL Urine Test (Negative) U Opiates 300ng/mL cut Negative (Negative) Ur Oxycodone Screen Negative (Negative) Urine Methadone Screen Negative (Negative) Ur Barbiturates Screen Negative (Negative) U Tricyclic Antidepress Negative (Negative) Ur Phencyclidine Scrn Negative (Negative) Ur Amphetamines Screen Negative (Negative) U Methamphetamines Scrn Negative (Negative) Ur MDMA Scrn (Ecstasy) Negative (Negative) U Benzodiazepines Scrn Negative (Negative) Urine Cocaine Screen Negative (Negative) U Marijuana (THC) Screen Negative (Negative) Ethyl Alcohol 241 H ( - 10) mg/dL SARS-CoV-2 (PCR) Negative (Negative) MDM Narrative Medical decision making narrative: Patient is obviously intoxicated. Attended detox and rehab approximately 1 year ago. Has been drinking since then. Is not in withdrawal currently. Is obviously sad about her son passing away recently. Patient is seeking help for alcohol detox. She is medically cleared to attend alcohol detox. Discharge Plan Departure Patient Disposition: Home Clinical Impression: Alcoholic intoxication Instructions: DI for Alcohol Use Disorder Activity Restrictions/Additional Instructions: You are medically cleared for detox. No driving for the next 24 hours or in the future if you drink alcohol. Recommend that you contact your primary provider for follow-up. Return to the emergency department for any new or worsening symptoms Prescriptions: New lorazepam [Ativan] 1 mg tablet 1 mg PO Q4H PRN (Reason: alcohol withdrawal) Qty: 6 RF: 0 No Action albuterol sulfate [Proventil HFA] 90 MCG/PUFF HFA aerosol inhaler 2 puff INH Q4-6HP PRNQty: 1 RF: 3 fluticasone propionate 50 mcg/actuation spray,suspension 1 spray Intranasal BID Qty: 15.8 RF: 3 furosemide 20 mg tablet 20 mg PO DAILY PRN (Reason: edema) Qty: 60 RF: 3 potassium chloride 10 mEq tablet extended release 10 meq PO BID Qty: 60 RF: 3 cetirizine [All Day Allergy (cetirizine)] 10 mg tablet 10 mg PO DAILY PRN (Reason: allergy symptoms) Qty: 90 RF: 3 levothyroxine 125 mcg tablet 125 mcg PO DAILY Qty: 90 RF: 3 venlafaxine 150 mg capsule,extended release 24hr 150 mg PO DAILY Qty: 90 RF: 3 pramipexole 0.5 mg tablet 0.5 mg PO BEDTIME Qty: 90 RF: 1 aspirin 325 mg tablet 325 mg PO DAILY Qty: 30 RF: 5 naltrexone 50 mg tablet 50 mg PO DAILY Qty: 90 RF: 0 levofloxacin 500 mg tablet 500 mg PO DAILY Qty: 10 RF: 1 pantoprazole 40 mg tablet,delayed release (DR/EC) 40 mg PO DAILY Qty: 30 RF: 3 Referrals: Ani Mckeon PA-C [Primary Care Provider] -
[2020-12-24 00:08] LABS: UR Morphine/Opiate cutoff 300 Negative (Negative); Ur Creatinine Normal (Normal); Ur Specific Gravity Normal (Normal); Urine Amphetamines Negative (Negative); Urine Barbiturates Negative (Negative); Urine Benzodiazepines Negative (Negative); Urine Cocaine Negative (Negative); Urine MDMA Negative (Negative); Urine Methadone Negative (Negative); Urine Methamphetamines Negative (Negative); Urine Oxycodone Negative (Negative); Urine Phencyclidine Negative (Negative); Urine Tetrahydrocannabinol Negative (Negative); Urine Tricyclic Antidepressant Negative (Negative); Urine pH Normal (Normal)
[2020-12-24 00:34] LABS: COVID19 -Nasal RAPID Negative (Negative)
[2020-12-24 01:41] LABS: Ethanol (ETOH) 241 mg/dL
[2020-12-24 03:54] LABS: Pregnancy Test Urine Negative (Negative)
--- NOTE | 2020-12-24 03:55 | PC.NURSE ---
Pt continues to states to want detox. Cleared by provider. Called [facility] and stated patient had been accepted.
[2020-12-24 04:35] VITALS: BP 153/92; PULSE 86; RESP 20; O2SAT 97
== END 2020-12-24 04:35 | disposition home or self-care (01) ==
PROVIDERS: Emergency Provider Emergency Medicine; PCP Physician Assistant
DX: F10.229 Alcohol dependence with intoxication, unspecified (principal); Y90.8 Blood alcohol level of 240 mg/100 ml or more; Z20.822 Contact with and (suspected) exposure to COVID-19
CPT/HCPCS: 36415; 80048; 80305; 80320; 81025; 85025; 87635; 99283; C9803

== ENCOUNTER 2020-12-31 00:06 | Emergency (ER) | payer OTHER, MEDICAID, SELFPAY ==
[2020-12-31 00:13] VITALS: PULSE 91; O2SAT 98
[2020-12-31 00:15] VITALS: BP 180/99; PULSE 92; RESP 24; TEMP 37.2; O2SAT 98; BMI 40.2
--- NOTE | 2020-12-31 00:18 | ED_ITS ---
HPI - Arrhythmia/Palpitations General Chief Complaint: Arrhythmia/Palpitations Stated Complaint: Heart palpatations Time Seen by Provider: 12/31/20 00:08 Source: patient and family Mode of arrival: Ambulatory Limitations: no limitations History of Present Illness HPI narrative: 55-year-old female smoker presents with family in the chief complaint of palpitations for the past hour. She denies any chest pain, short ness of breath or dizziness. She states that she just feels like her heart is racing and beating harder than it should be. She does drink a few alcoholic beverages daily and admits to consuming about for tonight, this is not abnormal for her. She states she had a very stressful day and found out the results of the autopsy for her son this afternoon. She denies use of any street drugs, change in medication, diet or addition of any supplements. She denies nausea, vomiting or diarrhea. She has had no fever or chills. MD complaint: rapid heart beat, heart racing and palpitations Onset (ago): hour(s) Duration: constant Severity: moderate Context: occurred during rest Associated symptoms: denies other symptoms Related Data Previous Rx's Medication Instructions Recorded albuterol sulfate [Proventil HFA] 2 puff INH Q4-6HP PRN #1 inh 12/03/17 fluticasone propionate 50 1 spray INTRANASAL BID #15.8 gram 12/03/18 mcg/actuation nasal spray,suspension pantoprazole 40 mg tablet,delayed 40 mg PO DAILY #30 tab 08/20/19 release furosemide 20 mg tablet 20 mg PO DAILY PRN #60 tab 09/12/19 potassium chloride 10 mEq 10 meq PO BID #60 tab 10/14/19 tablet,extended release cetirizine 10 mg tablet 10 mg PO DAILY PRN #90 tab 02/23/20 levothyroxine 125 mcg tablet 125 mcg PO DAILY #90 tab 02/23/20 pramipexole 0.5 mg tablet 0.5 mg PO BEDTIME #90 tab 02/23/20 venlafaxine 150 mg 150 mg PO DAILY #90 cap 02/23/20 capsule,extended release 24 hr aspirin 325 mg tablet 325 mg PO DAILY #30 tab 03/24/20 naltrexone 50 mg tablet 50 mg PO DAILY #90 tab 03/31/20 levofloxacin 500 mg tablet 500 mg PO DAILY #10 tab 04/29/20 lorazepam [Ativan] 1 mg PO Q4H PRN #6 tab 12/24/20 Allergies Allergy/AdvReac Type Severity Reaction Status Date / Time animal dander [ANIMAL DANDER] Allergy Intermediate ITCHY Verified 05/04/20 14:27 WATERY EYES AND SNEEZING grass pollen AdvReac Intermediate itching Verified 05/04/20 14:27 house dust AdvReac Intermediate itching Verified 05/04/20 14:27 Review of Systems Constitutional Constitutional: Denies chills, Denies fatigue, Denies fever(s), Denies frequent falls, Denies lethargy and Denies weakness Eyes Eyes: Denies change in vision, Denies eye discharge, Denies irritation and Denies loss of vision ENT Ears, Nose, Mouth, and Throat: Denies change in voice, Denies dizziness, Denies neck pain, Denies sore throat and Denies throat swelling Cardiovascular Cardiovascular: Denies chest pain, Reports rapid heart rate, Denies irregular heart rhythm, Denies lightheadedness, Reports palpitations, Denies dyspnea, Denies dyspnea on exertion and Denies orthopnea Respiratory Respiratory: Denies cough, Denies dyspnea, Denies dyspnea on exertion and Denies wheezing Gastrointestinal Gastrointestinal: Denies abdominal pain, Denies change in bowel habits, Denies diarrhea, Denies nausea and Denies vomiting Musculoskeletal Musculoskeletal: Denies neck pain and Denies numbness Integumentary/Breasts Skin/Breast: Denies pruritus, Denies erythema, Denies rash and Denies wounds Neurologic Neurologic: Denies behavioral changes, Denies confusion, Denies dizziness, Denies frequent falls, Denies loss of vision, Denies numbness and Denies weakness Psychiatric Psychiatric: Denies anxiety, Denies behavioral changes, Denies confusion, Denies depression, Denies homicidal ideation and Denies suicidal ideation Endocrine Endocrine: Denies fatigue, Denies flushing and Reports palpitations Hematologic/Lymphatic Hematologic/Lymphatic: Denies easy bruising Allergic/Immunologic Allergic/Immunologic: Denies urticaria, Denies throat swelling and Denies wheezing Patient History Medical History (Updated 12/31/20 @ 00:59 by Willie Miller DO) Acquired hypothyroidism (~2016) Alcohol abuse Allergic rhinitis Depression (Unknown) Obstructive sleep apnea Peripheral edema (~2010) Restless leg Varicose veins of both lower extremities with complications (~2010) Surgical History History of Vasu-en-Y gastric bypass History of thyroidectomy Status post breast lumpectomy Status post laparoscopic cholecystectomy Family History Sister Age: 57 History of breast cancer Social History marital status: household members: family occupational status: employed Smoking Status: Former smoker Tobacco: How many years used: 3 second hand exposure: No alcohol intake: current substance use type: does not use Type(s) of exercise: none Smoking Status: Former smoker alcohol intake frequency: 3 or more drinks per day Alcohol type: beer, wine and hard liquor Substance Use Type: marijuana Exam Narrative Exam Narrative: GENERAL: 55 [] year old patient appears stated age. Well- nourished, well-developed patient, in mild distress. Tearful and anxious HEAD: Atraumatic. Normocephalic. EYES: Pupils equal round and reactive. Extraocular motions intact. No scleral icterus. No injection or drainage. ENT: Nose without bleeding, purulent drainage. Throat without erythema, tonsillar hypertrophy or exudate. Airway patent. NECK: Trachea midline. Non tender CARDIOVASCULAR: Regular rate and rhythm without murmurs, gallops, or rubs. RESPIRATORY: Clear to auscultation. Breath sounds equal bilaterally. No wheezes, rales, or rhonchi. GASTROINTESTINAL: Abdomen soft, non-tender, nondistended. EXTREMITIES: No edema or joint tenderness. BACK: Nontender without deformity or crepitance. No flank tenderness. NEURO: AOx3. SKIN: No rash or erythema of visible areas Initial Vital Signs Initial Vital Signs: Vital Signs Pulse Rate 91 H 12/31/20 00:13 Pulse Oximetry 98 12/31/20 00:13 Course Orders Ordered: ED Orders 12/31/20 00:05 EKG-12 Lead Stat 12/31/20 00:25 Basic Metabolic Panel Stat Complete Blood Count AUTO DIFF Stat Troponin & CK Cardiac Panel Stat Discontinued Medications Sodium Chloride (Normal Saline 0.9%) 1,000 mls @ 1,000 mls/hr IV BOLUS ONE Stop: 12/31/20 01:17 Last Admin: 12/31/20 00:22 Dose: 1,000 mls/hr Documented by: REX Lorazepam (Lorazepam 2 Mg/Ml Inj) 1 mg IV NOW ONE Stop: 12/31/20 01:16 Vital Signs Vital signs: Vital Signs - 8 hr 12/31/20 00:13 12/31/20 00:15 12/31/20 00:30 Temperature 98.9 F Pulse Rate 91 H 92 H 80 Respiratory Rate 24 Blood Pressure 180/99 H Pulse Oximetry 98 98 95 12/31/20 00:31 Temperature Pulse Rate 80 Respiratory Rate Blood Pressure 140/71 Pulse Oximetry 95 MDM - Arrhythmia/Palpitations Lab Data Result diagrams: 12/31/20 00:25 12/31/20 00:25 Labs: Lab Results 12/31/20 12/31/20 Range/Units 00:25 00:25 WBC 4.5 (4.5-11.0) X10^3/uL RBC 4.45 (4.0-5.2) X10^6/uL Hgb 12.7 (12.0-16.0) g/dL Hct 40.0 (36-46) % MCV 89.9 (80-100) fL MCH 28.6 (26-34) PG MCHC 31.8 (30-36) % RDW 16.6 H (11.6-14.8) % Plt Count 222 (150-400) X10^3/uL Neut % (Auto) 48.0 L (50-75) % Lymph % (Auto) 36.7 (25-40) % [place] % (Auto) 14.7 H (3-14) % Eos % (Auto) 0.4 L (2-4) % Baso % (Auto) 0.2 (0-2) % Neut # (Auto) 2100 (8492-7038) /uL Lymph # (Auto) 1600 (3471-7231) /uL [place] # (Auto) 700 (0-900) /uL Eos # (Auto) 0 (0-450) /uL Baso # (Auto) 0 (0-100) /uL Sodium 141 (137-145) mmol/L Potassium 3.8 (3.4-5.1) mmol/L Chloride 108 H (98-107) mmol/L Carbon Dioxide 28 (22-32) mmol/L BUN 13 (7-17) mg/dL Creatinine 0.71 (0.52-1.04) mg/dL Estimated GFR > 60.0 (>60) mL/min BUN/Creatinine Ratio 18.3 (6-22) Glucose 100 (70-100) mg/dL Calcium 7.9 L (8.4-10.2) mg/dL Total Creatine Kinase 37 (30-135) U/L CK-MB (CK-2) TNP CK-MB (CK-2) Rel Index TNP Troponin I < 0.012 (0.01-0.034) ng/mL ECG Data Attestation: I personally reviewed and interpreted this ECG as follows: Interpretation: EKG is normal sinus rhythm rate [ 85] and free of any signs of ischemia or ectopy. No ST segmental elevation or depression. No T wave inversions MDM Narrative Medical decision making narrative: Patient feeling much better, no tachycardia or ectopic beats. Labs reassuring. Patient much calmer and admits that anxiety likely played a role. She drinks regularly and does not plan to quit soon, no indication of withdrawal. Return precautions given, questions asnwered to her apparent satisfaction Discharge Plan Departure Patient Disposition: Home Clinical Impression: Heart palpitations Instructions: DI for Palpitations Activity Restrictions/Additional Instructions: *You have been diagnosed with [palpitations. Lab work, EKG is very reassuring] *What to do: * continue to take medications as directed *Follow up with your primary care provider in 2-3 days, call for an appointment. Let them know you were seen in the Emergency Department and that we ask that you be seen in follow up *Return to ER if you should have any new, worsening or concerning symptoms, such as [chest pain, shortness of breath, fever over 101 F or other bothersome symptoms] Prescriptions: No Action albuterol sulfate [Proventil HFA] 90 MCG/PUFF HFA aerosol inhaler 2 puff INH Q4-6HP PRNQty: 1 RF: 3 fluticasone propionate 50 mcg/actuation spray,suspension 1 spray Intranasal BID Qty: 15.8 RF: 3 furosemide 20 mg tablet 20 mg PO DAILY PRN (Reason: edema) Qty: 60 RF: 3 potassium chloride 10 mEq tablet extended release 10 meq PO BID Qty: 60 RF: 3 cetirizine [All Day Allergy (cetirizine)] 10 mg tablet 10 mg PO DAILY PRN (Reason: allergy symptoms) Qty: 90 RF: 3 levothyroxine 125 mcg tablet 125 mcg PO DAILY Qty: 90 RF: 3 venlafaxine 150 mg capsule,extended release 24hr 150 mg PO DAILY Qty: 90 RF: 3 pramipexole 0.5 mg tablet 0.5 mg PO BEDTIME Qty: 90 RF: 1 aspirin 325 mg tablet 325 mg PO DAILY Qty: 30 RF: 5 naltrexone 50 mg tablet 50 mg PO DAILY Qty: 90 RF: 0 levofloxacin 500 mg tablet 500 mg PO DAILY Qty: 10 RF: 1 pantoprazole 40 mg tablet,delayed release (DR/EC) 40 mg PO DAILY Qty: 30 RF: 3 lorazepam [Ativan] 1 mg tablet 1 mg PO Q4H PRN (Reason: alcohol withdrawal) Qty: 6 RF: 0 Referrals: Ani Mckeon PA-C [Primary Care Provider] -
[2020-12-31] MEDS: SODIUM CHLORIDE 0.9% 1,000 ML 1000 ML IV (00:22)
[2020-12-31 00:30] VITALS: PULSE 80; O2SAT 95
[2020-12-31 00:31] VITALS: BP 140/71; PULSE 80; O2SAT 95
[2020-12-31 00:39] LABS: Add Manual Diff / Slide Review NO; Basophils Absolute Auto 0 /uL (0-100); Basophils Percent Auto 0.2 % (0-2); Eosinophils Absolute Auto 0 /uL (0-450); Eosinophils Percent Auto 0.4 % (2-4); Hemoglobin 12.7 g/dL (12.0-16.0); Lymphocytes Absolute Auto 1600 /uL (1100-4500); Lymphocytes Percent Auto 36.7 % (25-40); Mean Corpuscular HGB Conc 31.8 % (30-36); Mean Corpuscular Hemoglobin 28.6 PG (26-34); Mean Corpuscular Volume 89.9 fL (80-100); Monocytes Absolute Auto 700 /uL (0-900); Monocytes Percent Auto 14.7 % (3-14); Neutrophils Absolute Auto 2100 /uL (1500-7000); Platelet Count 222 X10^3/uL (150-400); Red Blood Cell Count 4.45 X10^6/uL (4.0-5.2); Red Cell Distribution Width 16.6 % (11.6-14.8); White Blood Cell Count 4.5 X10^3/uL (4.5-11.0)
[2020-12-31 00:58] LABS: BUN Creatinine Ratio 18.3 (6-22); Blood Urea Nitrogen 13 mg/dL (7-17); Calcium 7.9 mg/dL (8.4-10.2); Carbon Dioxide 28 mmol/L (22-32); Chloride 108 mmol/L (98-107); Creatine Kinase 37 U/L (30-135); Estimated Glomerular Filt Rate > 60.0 mL/min (>60); Glucose 100 mg/dL (70-100); HEMOLYSIS < 15 (0-50); Potassium 3.8 mmol/L (3.4-5.1); Sodium 141 mmol/L (137-145)
[2020-12-31 01:00] VITALS: BP 147/82; PULSE 79; RESP 16; O2SAT 95
[2020-12-31 01:10] LABS: Troponin I < 0.012 ng/mL (0.01-0.034)
[2020-12-31] MEDS: LORazepam 2 MG/ML INJ 1 MG IV (01:19)
== END 2020-12-31 01:28 | disposition home or self-care (01) ==
PROVIDERS: Emergency Provider Emergency Medicine; PCP Physician Assistant
DX: R00.2 Palpitations (principal); Z79.82 Long term (current) use of aspirin
CPT/HCPCS: 36415; 80048; 82550; 84484; 85025; 93005; 96361; 96374; 99283; 99284; J2060

== ENCOUNTER 2020-12-31 22:49 | Emergency (ER) | payer OTHER, MEDICAID, SELFPAY ==
[2020-12-31 23:01] VITALS: BP 145/84; PULSE 94; RESP 16; TEMP 36.1; O2SAT 95; BMI 40.2
--- NOTE | 2021-01-01 00:39 | PC.NURSE ---
patient has her phone is is listening to music. Then she is on the phone talking with someone. She says she has people in her home and she says they are supportive. Patient continues to be tearful emotional
--- NOTE | 2021-01-01 02:03 | ED_ITS ---
HPI - Alcohol General Chief Complaint: Toxicology Problem Stated Complaint: DETOX Time Seen by Provider: 01/01/21 01:20 Source: patient Mode of arrival: Ambulatory Limitations: no limitations History of Present Illness HPI narrative: This is a 55-year-old female who comes to the emergency department with complaint alcohol abuse and request for detox and rehab. Patient states that her son in November, since then she has been grieving and having difficulty with her alcohol abuse. Yesterday the she received the autopsy results from her son's as well as a plaque from the mortuary and she states this made her significantly more upset she began drinking. She did go to [facility] detox the she states she was there for 4 days she was able to be sober for short period of time but then began drinking again she states that she will drink any form of alcohol she can find but does drink a lot she d oes. This is daily. She has had withdrawal symptoms such as that shakes or tremors, palpitations, nausea and diarrhea but denies any prior seizures, hallucinations. Patient states that she did contact [facility] and that they had beds earlier today. She is motivated to stop drinking for her other 2 sons who are currently alive. She has been depressed and having anxiety but denies any suicidal ideation or intent. Related Data Previous Rx's Medication Instructions Recorded albuterol sulfate [Proventil HFA] 2 puff INH Q4-6HP PRN #1 inh 12/03/17 fluticasone propionate 50 1 spray INTRANASAL BID #15.8 gram 12/03/18 mcg/actuation nasal spray,suspension pantoprazole 40 mg tablet,delayed 40 mg PO DAILY #30 tab 08/20/19 release furosemide 20 mg tablet 20 mg PO DAILY PRN #60 tab 09/12/19 potassium chloride 10 mEq 10 meq PO BID #60 tab 10/14/19 tablet,extended release cetirizine 10 mg tablet 10 mg PO DAILY PRN #90 tab 02/23/20 levothyroxine 125 mcg tablet 125 mcg PO DAILY #90 tab 02/23/20 pramipexole 0.5 mg tablet 0.5 mg PO BEDTIME #90 tab 02/23/20 venlafaxine 150 mg 150 mg PO DAILY #90 cap 02/23/20 capsule,extended release 24 hr aspirin 325 mg tablet 325 mg PO DAILY #30 tab 03/24/20 naltrexone 50 mg tablet 50 mg PO DAILY #90 tab 03/31/20 levofloxacin 500 mg tablet 500 mg PO DAILY #10 tab 04/29/20 lorazepam [Ativan] 1 mg PO Q4H PRN #6 tab 12/24/20 lorazepam [Ativan] 1 mg PO TID PRN #18 tab 01/01/21 Allergies Allergy/AdvReac Type Severity Reaction Status Date / Time animal dander [ANIMAL DANDER] Allergy Intermediate ITCHY Verified 05/04/20 14:27 WATERY EYES AND SNEEZING grass pollen AdvReac Intermediate itching Verified 05/04/20 14:27 house dust AdvReac Intermediate itching Verified 05/04/20 14:27 Review of Systems Review of Systems ROS Unobtainable: All systems reviewed & are unremarkable except as noted in HPI and below Patient History Medical History (Updated 01/01/21 @ 02:44 by Isamar Price DO) Acquired hypothyroidism (~2016) Alcohol abuse Allergic rhinitis Depression (Unknown) Obstructive sleep apnea Peripheral edema (~2010) Restless leg Varicose veins of both lower extremities with complications (~2010) Surgical History History of Vsau-en-Y gastric bypass History of thyroidectomy Status post breast lumpectomy Status post laparoscopic cholecystectomy Family History Sister Age: 57 History of breast cancer Social History marital status: household members: family occupational status: employed Smoking Status: Former smoker Tobacco: How many years used: 3 second hand exposure: No alcohol intake: current substance use type: does not use Type(s) of exercise: none Smoking Status: Former smoker alcohol intake frequency: 3 or more drinks per day Alcohol type: beer, wine and hard liquor Substance Use Type: marijuana and other Exam Narrative Exam Narrative: GENERAL: Alert and oriented x three, obese female in distress. Patient is tearful during evaluation. HEENT: Head normocephalic, atraumatic, EOMI, pupils reactive, face symmetric, mo ist mucous membranes NECK: Supple, full range of motion CARDIOVASCULAR: Regular rate and rhythm without murmurs, rubs or gallops. RESPIRATORY: Breath sounds equal bilaterally, no wheezes rales or rhonchi. ABDOMEN: Soft, nontender. Normoactive bowel sounds all 4 quadrants. No guarding or rebound, rigidity, no mass : No CVA tenderness EXTREMITIES: Normal range of motion, no clubbing or edema. Neurovascularly intact NEUROLOGICAL: Cranial nerves II through XII grossly intact. Moving all extrem ities SKIN: Warm, dry, no petechiae, no rashes or lesions. PSYCH: depression and anxiety, grief, denies suicidal or homicidal ideation or intent. Initial Vital Signs Initial Vital Signs: Vital Signs Temperature 96.9 F L 12/31/20 23:01 Pulse Rate 94 H 12/31/20 23:01 Respiratory Rate 16 12/31/20 23:01 Blood Pressure 145/84 H 12/31/20 23:01 Pulse Oximetry 95 12/31/20 23:01 Scores GCS Marlene coma scale eye opening: Spontaneous [place] coma scale verbal response: Orientated [place] coma scale motor response: Obey commands [place] coma scale total score: 15 Course Orders Ordered: ED Orders 01/01/21 01:50 Complete Blood Count AUTO DIFF Stat Comprehensive Metabolic Panel Stat ETOH [Ethanol (ETOH)] Stat Lipase Stat Partial Thromboplastin Time Stat Prothrombin Time INR Stat 01/01/21 02:41 COVID19 Stat 01/01/21 02:45 Test Urine Stat Urine Drug Screen, Rapid Stat Discontinued Medications Loperamide HCl (Loperamide 2 Mg Capsule) 2 mg PO NOW ONE Stop: 01/01/21 03:19 Last Admin: 01/01/21 03:24 Dose: 2 mg Documented by: RAMIN Loperamide HCl (Loperamide 2 Mg Capsule) 2 mg PO NOW ONE Stop: 01/01/21 05:41 Last Admin: 01/01/21 05:44 Dose: 2 mg Documented by: RAMIN Lorazepam (Lorazepam 0.5 Mg Tablet) 2 mg PO NOW ONE Stop: 01/01/21 05:45 Last Admin: 01/01/21 06:23 Dose: 2 mg Documented by: RAMIN Vital Signs Vital signs: Vital Signs - 8 hr 12/31/20 23:01 01/01/21 06:29 Temperature 96.9 F L Pulse Rate 94 H 81 Respiratory Rate 16 22 Blood Pressure 145/84 H 154/91 H Pulse Oximetry 95 97 MDM - Alcohol Lab Data Attestation: I reviewed the patient's lab results. Result diagrams: 01/01/21 01:50 01/01/21 01:50 Labs: Lab Results 01/01/21 01/01/21 01/01/21 Range/Units 01:50 01:50 01:50 WBC 3.7 L (4.5-11.0) X10^3/uL RBC 4.28 (4.0-5.2) X10^6/uL Hgb 12.3 (12.0-16.0) g/dL Hct 38.5 (36-46) % MCV 89.9 (80-100) fL MCH 28.6 (26-34) PG MCHC 31.8 (30-36) % RDW 15.8 H (11.6-14.8) % Plt Count 200 (150-400) X10^3/uL Neut % (Auto) 44.2 L (50-75) % Lymph % (Auto) 45.2 H (25-40) % [place] % (Auto) 9.9 (3-14) % Eos % (Auto) 0.4 L (2-4) % Baso % (Auto) 0.3 (0-2) % Neut # (Auto) 1600 (3900-6007) /uL Lymph # (Auto) 1700 (1535-4620) /uL [place] # (Auto) 400 (0-900) /uL Eos # (Auto) 0 (0-450) /uL Baso # (Auto) 0 (0-100) /uL PT 11.5 (10.1-12.7) SECONDS INR 1.0 (0.9-1.3) APTT 28 (26.4-36.2) SECONDS Sodium (137-145) mmol/L Potassium (3.4-5.1) mmol/L Chloride (98-107) mmol/L Carbon Dioxide (22-32) mmol/L BUN (7-17) mg/dL Creatinine (0.52-1.04) mg/dL Estimated GFR (>60) mL/min BUN/Creatinine Ratio (6-22) Glucose (70-100) mg/dL Calcium (8.4-10.2) mg/dL Total Bilirubin (0.2-1.3) mg/dL AST (14-36) IU/L ALT (<35) IU/L Alkaline Phosphatase (38-126) U/L Total Protein (6.3-8.2) g/dL Albumin (3.5-5.0) g/dL Globulin (1.7-4.1) g/dL Albumin/Globulin Ratio (1.0-2.8) Lipase (23-300) U/L Urine Test (Negative) U Opiates 300ng/mL cut (Negative) Ur Oxycodone Screen (Negative) Urine Methadone Screen (Negative) Ur Barbiturates Screen (Negative) U Tricyclic Antidepress (Negative) Ur Phencyclidine Scrn (Negative) Ur Amphetamines Screen (Negative) U Methamphetamines Scrn (Negative) Ur MDMA Scrn (Ecstasy) (Negative) U Benzodiazepines Scrn (Negative) Urine Cocaine Screen (Negative) U Marijuana (THC) Screen (Negative) Ethyl Alcohol 252 H ( - 10) mg/dL SARS-CoV-2 (PCR) (Negative) 01/01/21 01/01/21 01/01/21 Range/Units 01:50 02:41 02:45 WBC (4.5-11.0) X10^3/uL RBC (4.0-5.2) X10^6/uL Hgb (12.0-16.0) g/dL Hct (36-46) % MCV (80-100) fL MCH (26-34) PG MCHC (30-36) % RDW (11.6-14.8) % Plt Count (150-400) X10^3/uL Neut % (Auto) (50-75) % Lymph % (Auto) (25-40) % [place] % (Auto) (3-14) % Eos % (Auto) (2-4) % Baso % (Auto) (0-2) % Neut # (Auto) (5525-2746) /uL Lymph # (Auto) (5086-8959) /uL [place] # (Auto) (0-900) /uL Eos # (Auto) (0-450) /uL Baso # (Auto) (0-100) /uL PT (10.1-12.7) SECONDS INR (0.9-1.3) APTT (26.4-36.2) SECONDS Sodium 144 (137-145) mmol/L Potassium 4.0 (3.4-5.1) mmol/L Chloride 110 H (98-107) mmol/L Carbon Dioxide 29 (22-32) mmol/L BUN 7 (7-17) mg/dL Creatinine 0.60 (0.52-1.04) mg/dL Estimated GFR > 60.0 (>60) mL/min BUN/Creatinine Ratio 11.7 (6-22) Glucose 106 H (70-100) mg/dL Calcium 7.9 L (8.4-10.2) mg/dL Total Bilirubin 0.2 (0.2-1.3) mg/dL AST 40 H (14-36) IU/L ALT 18 (<35) IU/L Alkaline Phosphatase 93 (38-126) U/L Total Protein 6.4 (6.3-8.2) g/dL Albumin 3.4 L (3.5-5.0) g/dL Globulin 3.0 (1.7-4.1) g/dL Albumin/Globulin Ratio 1.1 (1.0-2.8) Lipase 99 (23-300) U/L Urine Test (Negative) U Opiates 300ng/mL cut Negative (Negative) Ur Oxycodone Screen Negative (Negative) Urine Methadone Screen Negative (Negative) Ur Barbiturates Screen Negative (Negative) U Tricyclic Antidepress Negative (Negative) Ur Phencyclidine Scrn Negative (Negative) Ur Amphetamines Screen Negative (Negative) U Methamphetamines Scrn Negative (Negative) Ur MDMA Scrn (Ecstasy) Negative (Negative) U Benzodiazepines Scrn Negative (Negative) Urine Cocaine Screen Negative (Negative) U Marijuana (THC) Screen Negative (Negative) Ethyl Alcohol ( - 10) mg/dL SARS-CoV-2 (PCR) Negative (Negative) 01/01/21 Range/Units 02:45 WBC (4.5-11.0) X10^3/uL RBC (4.0-5.2) X10^6/uL Hgb (12.0-16.0) g/dL Hct (36-46) % MCV (80-100) fL MCH (26-34) PG MCHC (30-36) % RDW (11.6-14.8) % Plt Count (150-400) X10^3/uL Neut % (Auto) (50-75) % Lymph % (Auto) (25-40) % [place] % (Auto) (3-14) % Eos % (Auto) (2-4) % Baso % (Auto) (0-2) % Neut # (Auto) (1548-4127) /uL Lymph # (Auto) (1925-6222) /uL [place] # (Auto) (0-900) /uL Eos # (Auto) (0-450) /uL Baso # (Auto) (0-100) /uL PT (10.1-12.7) SECONDS INR (0.9-1.3) APTT (26.4-36.2) SECONDS Sodium (137-145) mmol/L Potassium (3.4-5.1) mmol/L Chloride (98-107) mmol/L Carbon Dioxide (22-32) mmol/L BUN (7-17) mg/dL Creatinine (0.52-1.04) mg/dL Estimated GFR (>60) mL/min BUN/Creatinine Ratio (6-22) Glucose (70-100) mg/dL Calcium (8.4-10.2) mg/dL Total Bilirubin (0.2-1.3) mg/dL AST (14-36) IU/L ALT (<35) IU/L Alkaline Phosphatase (38-126) U/L Total Protein (6.3-8.2) g/dL Albumin (3.5-5.0) g/dL Globulin (1.7-4.1) g/dL Albumin/Globulin Ratio (1.0-2.8) Lipase (23-300) U/L Urine Test Negative (Negative) U Opiates 300ng/mL cut (Negative) Ur Oxycodone Screen (Negative) Urine Methadone Screen (Negative) Ur Barbiturates Screen (Negative) U Tricyclic Antidepress (Negative) Ur Phencyclidine Scrn (Negative) Ur Amphetamines Screen (Negative) U Methamphetamines Scrn (Negative) Ur MDMA Scrn (Ecstasy) (Negative) U Benzodiazepines Scrn (Negative) Urine Cocaine Screen (Negative) U Marijuana (THC) Screen (Negative) Ethyl Alcohol ( - 10) mg/dL SARS-CoV-2 (PCR) (Negative) MDM Narrative Medical decision making narrative: This is a 55 year old female who states she is here requesting alcohol detox. She states she was just there recently and relapsed. She has been having increased difficulty after the of her son she very clearly states that she does not feel suicidal at this time or have any ideation. She also denies any intent to harm others. Patient at this time is medically cleared. Her labs do show a mild leukopenia which was present September. Chloride slightly elevated this is also chronic and calcium is noted to lbe low. rapid drug screen is negative, negative and etoh is 252 this morning. Detox facility contacted and intake performed and patient accepted. They request a 2mg ativan dose prior to discharge and a 1mg ativan taper with 18 tablets. Discharge Plan Departure Patient Disposition: Xfer Inpatient Rehab Clinical Impression: Alcohol intoxication Activity Restrictions/Additional Instructions: Go directly to the crisis/detox center. Take the prescribed medications for your symptoms. Medications will be dispensed by the staff there. If you leave the Center you CANNOT take the extra medication home with you. Prescriptions: New lorazepam [Ativan] 1 mg tablet 1 mg PO TID PRN (Reason: alcohol withdrawal) Qty: 18 RF: 0 No Action albuterol sulfate [Proventil HFA] 90 MCG/PUFF HFA aerosol inhaler 2 puff INH Q4-6HP PRNQty: 1 RF: 3 fluticasone propionate 50 mcg/actuation spray,suspension 1 spray Intranasal BID Qty: 15.8 RF: 3 furosemide 20 mg tablet 20 mg PO DAILY PRN (Reason: edema) Qty: 60 RF: 3 potassium chloride 10 mEq tablet extended release 10 meq PO BID Qty: 60 RF: 3 cetirizine [All Day Allergy (cetirizine)] 10 mg tablet 10 mg PO DAILY PRN (Reason: allergy symptoms) Qty: 90 RF: 3 levothyroxine 125 mcg tablet 125 mcg PO DAILY Qty: 90 RF: 3 venlafaxine 150 mg capsule,extended release 24hr 150 mg PO DAILY Qty: 90 RF: 3 pramipexole 0.5 mg tablet 0.5 mg PO BEDTIME Qty: 90 RF: 1 aspirin 325 mg tablet 325 mg PO DAILY Qty: 30 RF: 5 naltrexone 50 mg tablet 50 mg PO DAILY Qty: 90 RF: 0 levofloxacin 500 mg tablet 500 mg PO DAILY Qty: 10 RF: 1 pantoprazole 40 mg tablet,delayed release (DR/EC) 40 mg PO DAILY Qty: 30 RF: 3 lorazepam [Ativan] 1 mg tablet 1 mg PO Q4H PRN (Reason: alcohol withdrawal) Qty: 6 RF: 0 Referrals: Ani Mckeon PA-C [Primary Care Provider] -
[2021-01-01 02:04] LABS: Add Manual Diff / Slide Review NO; Basophils Absolute Auto 0 /uL (0-100); Basophils Percent Auto 0.3 % (0-2); Eosinophils Absolute Auto 0 /uL (0-450); Eosinophils Percent Auto 0.4 % (2-4); Hematocrit 38.5 % (36-46); Hemoglobin 12.3 g/dL (12.0-16.0); Lymphocytes Absolute Auto 1700 /uL (1100-4500); Lymphocytes Percent Auto 45.2 % (25-40); Mean Corpuscular HGB Conc 31.8 % (30-36); Mean Corpuscular Hemoglobin 28.6 PG (26-34); Mean Corpuscular Volume 89.9 fL (80-100); Monocytes Absolute Auto 400 /uL (0-900); Monocytes Percent Auto 9.9 % (3-14); Neutrophils Absolute Auto 1600 /uL (1500-7000); Neutrophils Percent Auto 44.2 % (50-75); Platelet Count 200 X10^3/uL (150-400); Red Blood Cell Count 4.28 X10^6/uL (4.0-5.2); Red Cell Distribution Width 15.8 % (11.6-14.8); White Blood Cell Count 3.7 X10^3/uL (4.5-11.0)
[2021-01-01 02:10] LABS: Ethanol (ETOH) 252 mg/dL
[2021-01-01 02:11] LABS: Alanine Aminotransferase 18 IU/L (<35); Albumin 3.4 g/dL (3.5-5.0); Albumin Globulin Ratio 1.1 (1.0-2.8); Alkaline Phosphatase 93 U/L (38-126); Aspartate Aminotransferase 40 IU/L (14-36); BUN Creatinine Ratio 11.7 (6-22); Bilirubin Total 0.2 mg/dL (0.2-1.3); Blood Urea Nitrogen 7 mg/dL (7-17); Calcium 7.9 mg/dL (8.4-10.2); Carbon Dioxide 29 mmol/L (22-32); Chloride 110 mmol/L (98-107); Estimated Glomerular Filt Rate > 60.0 mL/min (>60); Glucose 106 mg/dL (70-100); HEMOLYSIS < 15 (0-50); Sodium 144 mmol/L (137-145); Total Protein 6.4 g/dL (6.3-8.2)
[2021-01-01 02:14] LABS: Prothrombin Time 11.5 SECONDS (10.1-12.7)
[2021-01-01 02:16] LABS: PTT Partial Thromboplastin Tim 28 SECONDS (26.4-36.2)
[2021-01-01 02:17] LABS: Lipase 99 U/L (23-300)
[2021-01-01 03:03] LABS: COVID19 -Nasal RAPID Negative (Negative)
[2021-01-01] MEDS: LOPERAMIDE 2 MG CAPSULE PO ×2 (03:24→05:44)
[2021-01-01 03:40] LABS: UR Morphine/Opiate cutoff 300 Negative (Negative); Ur Creatinine 20 (Normal); Ur Specific Gravity 1.015 (Normal); Urine Amphetamines Negative (Negative); Urine Barbiturates Negative (Negative); Urine Benzodiazepines Negative (Negative); Urine Cocaine Negative (Negative); Urine MDMA Negative (Negative); Urine Methadone Negative (Negative); Urine Methamphetamines Negative (Negative); Urine Oxycodone Negative (Negative); Urine Phencyclidine Negative (Negative); Urine Tetrahydrocannabinol Negative (Negative); Urine Tricyclic Antidepressant Negative (Negative); Urine pH 5 (Normal)
[2021-01-01 03:41] LABS: Pregnancy Test Urine Negative (Negative)
--- NOTE | 2021-01-01 06:21 | PC.NURSE ---
Pt labs faxed to [facility], pt has communicated with them and they an open bed. Pt will be medicated prior to leaving. RX will go with pt to [facility].
[2021-01-01] MEDS: LORazepam 0.5 MG TABLET 2 MG PO (06:23)
[2021-01-01 06:29] VITALS: BP 154/91; PULSE 81; RESP 22; O2SAT 97
== END 2021-01-01 06:28 ==
PROVIDERS: Emergency Provider Emergency Medicine; PCP Physician Assistant
DX: F10.129 Alcohol abuse with intoxication, unspecified (principal); Y90.8 Blood alcohol level of 240 mg/100 ml or more; E66.9 Obesity, unspecified; Z68.41 Body mass index [BMI] 40.0-44.9, adult; Z20.822 Contact with and (suspected) exposure to COVID-19; R00.2 Palpitations; Z79.82 Long term (current) use of aspirin
CPT/HCPCS: 36415; 80048; 80053; 80305; 80320; 81025; 82550; 83690; 84484; 85025; 85610; 85730; 87635; 93005; 96361; 96374; 99282; 99284; C9803; J2060

== ENCOUNTER 2021-04-04 11:16 | Emergency (ER) | payer OTHER, MEDICAID, SELFPAY ==
[2021-04-04] VITALS (18 sets, daily range): BP systolic 137–190; BP diastolic 64–94; PULSE 78–101; RESP 11–35; TEMP 36.5; O2SAT 94–100; BMI 40.4
[2021-04-04 11:50] LABS: Add Manual Diff / Slide Review NO; Basophils Absolute Auto 100 /uL (0-100); Basophils Percent Auto 2.4 % (0-2); Eosinophils Absolute Auto 0 /uL (0-450); Eosinophils Percent Auto 0.2 % (2-4); Hematocrit 43.9 % (36-46); Hemoglobin 14.1 g/dL (12.0-16.0); Lymphocytes Absolute Auto 900 /uL (1100-4500); Lymphocytes Percent Auto 20.2 % (25-40); Mean Corpuscular HGB Conc 32.1 % (30-36); Mean Corpuscular Hemoglobin 28.9 PG (26-34); Mean Corpuscular Volume 90.2 fL (80-100); Monocytes Absolute Auto 300 /uL (0-900); Neutrophils Absolute Auto 3300 /uL (1500-7000); Neutrophils Percent Auto 70.2 % (50-75); Platelet Count 208 X10^3/uL (150-400); Red Blood Cell Count 4.86 X10^6/uL (4.0-5.2); Red Cell Distribution Width 16.9 % (11.6-14.8); White Blood Cell Count 4.7 X10^3/uL (4.5-11.0)
[2021-04-04 11:55] LABS: Alanine Aminotransferase 24 IU/L (<35); Albumin 4.1 g/dL (3.5-5.0); Albumin Globulin Ratio 1.2 (1.0-2.8); Alkaline Phosphatase 120 U/L (38-126); Aspartate Aminotransferase 43 IU/L (14-36); BUN Creatinine Ratio 18.8 (6-22); Bilirubin Total 0.5 mg/dL (0.2-1.3); Bilirubin Unconjugated 0.4 mg/dL (0.0-1.1); Blood Urea Nitrogen 12 mg/dL (7-17); Calcium 8.5 mg/dL (8.4-10.2); Carbon Dioxide 24 mmol/L (22-32); Chloride 102 mmol/L (98-107); Estimated Glomerular Filt Rate > 60.0 mL/min (>60); Ethanol (ETOH) < 10 mg/dL; Globulin 3.5 g/dL (1.7-4.1); Glucose 151 mg/dL (70-100); HEMOLYSIS < 15 (0-50); Magnesium 1.5 mg/dL (1.6-2.3); Phosphorous 3.9 mg/dL (2.5-4.5); Sodium 138 mmol/L (137-145); Total Protein 7.6 g/dL (6.3-8.2)
[2021-04-04] MEDS: SODIUM CHLORIDE 0.9% 1,000 ML 1000 ML IV (11:56)
[2021-04-04 12:01] LABS: Lipase 114 U/L (23-300)
[2021-04-04] MEDS: LORazepam 0.5 MG TABLET 1 MG PO ×2 (12:03→13:16)
[2021-04-04 12:54] LABS: TSH w/ Reflex to FT4 2.97 uIU/mL (0.47-4.68)
--- NOTE | 2021-04-04 13:11 | ED_ITS ---
HPI - Alcohol <SOLEDAD Leon - Last Filed: 04/04/21 21:49> General Chief Complaint: Toxicology Problem Stated Complaint: ALCOHOL WITHDRAWALS. Time Seen by Provider: 04/04/21 11:59 Source: patient Mode of arrival: Ambulatory Limitations: no limitations History of Present Illness HPI narrative: This is a 55 year female, nonsmoker, who has past medical history significant for alcohol dependence, depression presents to ED with chief complain of call withdrawal symptoms with frequent diarrhea shakiness. Reports she drinks 6-8 beer a day and last drink was 2 days ago. She attempted several times in the past to quit drink and was in rehab but alcohol cessation has been brief. Patient states she is still and with her son's which causing her to drink again. However, she wants to quit drinking for her own health, for other son to keep her job. 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 Patient reports has been having diarrhea every hour for last 24 hours. Denies blood in her stool, foreign travel, taking care farm animals, drinking untreated water or unusual food, or recent antibiotic medication use. Patient states she has been dealing with frequent diarrhea for last 1 year uses Pepto-Bismol and Imodium as needed. Patient had not use Imodium yesterday and in the past has been helpful. Patient is not seeking in-house rehab this time. Patient is not taking her routine medication Wellbutrin and citalopram as prescribed. Patient denies chest pain, dyspnea, abdominal pain, lightheadedness. She denies fever fever but reports chills. PCP Amanda Mckeon. Related Data Previous Rx's Medication Instructions Recorded levothyroxine 125 mcg tablet 125 mcg PO DAILY #90 tab 02/23/20 pramipexole 0.5 mg tablet 0.5 mg PO BEDTIME #90 tab 02/23/20 venlafaxine 150 mg 150 mg PO DAILY #90 cap 02/25/21 capsule,extended release 24 hr chlordiazepoxide HCl 25 mg PO Q6H PRN #7 cap 04/04/21 Allergies Allergy/AdvReac Type Severity Reaction Status Date / Time animal dander [ANIMAL DANDER] Allergy Intermediate ITCHY Verified 05/04/20 14:27 WATERY EYES AND SNEEZING grass pollen AdvReac Intermediate itching Verified 05/04/20 14:27 house dust AdvReac Intermediate itching Verified 05/04/20 14:27 Review of Systems <SOLEDAD Leon - Last Filed: 04/04/21 21:49> Review of Systems Narrative: General: Denies fever, (+) chills, fatigue, malaise, sweats. HEENT: Denies sinus pain, ear pain, sore throat, difficulty swallowing, dizziness. Respiratory: Denies dyspnea, cough, wheezing, hemoptysis, sputum. Cardiovascular: Denies chest pain, palpitations, orthopnea, edema. Gastrointestinal: See HPI. : Denies dysuria, frequency, incontinence, hematuria, urinary retention. Musculoskeletal: Denies weakness, joint pain or bony pain. Skin: Denies rash, skin lesions, or other. Neurologic: See HPI Psychiatric: See HPI 12-point review of systems is negative except for those stated above. Patient History <SOLEDAD Leon - Last Filed: 04/04/21 21:49> Medical History (Updated 04/04/21 @ 18:48 by SOLEDAD Leon) Acquired hypothyroidism (~2016) Alcohol abuse Allergic rhinitis Depression (Unknown) Obstructive sleep apnea Peripheral edema (~2010) Restless leg Varicose veins of both lower extremities with complications (~2010) Surgical History History of Vasu-en-Y gastric bypass History of thyroidectomy Status post breast lumpectomy Status post laparoscopic cholecystectomy Family History Sister Age: 57 History of breast cancer Social History marital status: household members: family occupational status: employed Smoking Status: Former smoker Tobacco: How many years used: 3 second hand exposure: No alcohol intake: current substance use type: does not use Type(s) of exercise: none Smoking Status: Former smoker alcohol intake frequency: 3 or more drinks per day Alcohol type: beer, wine and hard liquor Substance Use Type: marijuana and other Exam <SOLEDAD Leon - Last Filed: 04/04/21 21:49> Narrative Exam Narrative: GEN: Alert, oriented x 3, well appearing and nourished, and in no acute distress. Head: Normal cephalic, atraumatic. No scalp or temporal tenderness, palpable mass or rash. EYES: Pupils are equal, round, and reactive to light and accommodation. Extraocular muscles are intact bilaterally. There is no subconjunctival hemorrhage, exudate and sclera non-icteric. ENT: Hearing grossly intact. Airway patent. Neck: Trachea in midline. No JVD, non-tender without lymphadenopathy. No masses or thyroid megaly. Supple, non-tender and no meningeal signs. CARDIAC: Normal regular rate and rhythm without murmurs, gallops, or rubs. No chest wall tenderness. No peripheral edema, cyanosis or pallor. Capillary refill is less than 2 seconds. RESPIRATORY: Lungs are clear to auscultate bilaterally. No cough, wheezes, rales, or rhonchi. No stridor, respiratory distress, increase work of breathing, or accessary muscle used. ABD: Abdomen soft, nontender and non-distended. No guarding or rebound tenderness to palpate. Bowel sounds are normal in all 4 quadrants. There is no palpable masses or organomegaly. EXT: Full painless ROM of all extremities with no loss of sensation, strength, effusion or edema. SKIN: Warm, dry, normal color for patient. No erythema, lesions or rash over visible areas. BACK: Nontender without deformity or crepitance. No flank tenderness. NEUROLOGICAL: Alert and oriented to place, time and person. Sensation and motor function intact bilaterally. No facial droops, dysphasia. CIWA 6 PSYCHIATRIC: Good judgement and reason, without hallucinations, abnormal affect or abnormal behaviors during the examination. Patient is not suicidal. Initial Vital Signs Initial Vital Signs: Vital Signs Pulse Rate 101 H 04/04/21 11:21 Blood Pressure 188/88 H 04/04/21 11:21 Pulse Oximetry 98 04/04/21 11:21 <Isamar Price DO - Last Filed: 04/12/21 02:27> Initial Vital Signs Initial Vital Signs: Vital Signs Pulse Rate 101 H 04/04/21 11:21 Blood Pressure 188/88 H 04/04/21 11:21 Pulse Oximetry 98 04/04/21 11:21 Scores <Jayant Linda-SOLEDAD Saenz - Last Filed: 04/04/21 21:49> [facility] [place] coma scale eye opening: Spontaneous Marlene coma scale verbal response: Orientated Marlene coma scale motor response: Obey commands Marlene coma scale total score: 15 Citation: 1310-CIWA score 6 (tremor, sweats, anxiety, agitation) 1410-CIWA score 6 1800-CIWA score 3 (tremor-2. anxiety-1) Course <Jayant Mckeon-SOLEDAD Saenz - Last Filed: 04/04/21 21:49> Orders Ordered: Discontinued Medications Chlordiazepoxide HCl (Chlordiazepoxide 25 Mg Capsule) 50 mg PO NOW ONE Stop: 04/04/21 14:25 Last Admin: 04/04/21 14:35 Dose: 50 mg Documented by: BERNARDINO Chlordiazepoxide HCl (Chlordiazepoxide 25 Mg Capsule) 50 mg PO NOW ONE Stop: 04/04/21 18:39 Last Admin: 04/04/21 19:00 Dose: 50 mg Documented by: BERNARDINO Sodium Chloride (Normal Saline 0.9%) 1,000 mls @ 1,000 mls/hr IV BOLUS ONE Stop: 04/04/21 12:23 Last Infusion: 04/04/21 12:42 Dose: 0 mls/hr Documented by: Admin: 04/04/21 11:56 Dose: 1,000 mls/hr Documented by: JOSH Magnesium Sulfate (Magnesium Sulfate) 2 gm in 50 mls @ 25 mls/hr IV NOW ONE Stop: 04/04/21 15:02 Last Infusion: 04/04/21 14:37 Dose: 0 mls/hr Documented by: BERNARDINO Cosigned by: JOSH Admin: 04/04/21 13:21 Dose: 25 mls/hr Documented by: BERNARDINO Cosigned by: JOSH Lactated Ringer's (Lactated Ringers) 1,000 mls @ 150 mls/hr IV CONT SHARON Last Infusion: 04/04/21 14:38 Dose: 0 mls/hr Documented by: Admin: 04/04/21 13:23 Dose: 150 mls/hr Documented by: BERNARDINO Magnesium Sulfate 2 gm/ Folic Acid 1 mg/ Thiamine HCl 100 mg / Multivitamins 10 ml/ Sodium Chloride 1,015.2 mls @ 500 mls/hr IV NOW ONE Stop: 04/04/21 16:18 Last Infusion: 04/04/21 17:36 Dose: 0 mls/hr Documented by: Admin: 04/04/21 15:17 Dose: 500 mls/hr Documented by: BERNARDINO Loperamide HCl (Loperamide 2 Mg Capsule) 2 mg PO NOW ONE Stop: 04/04/21 13:04 Last Admin: 04/04/21 13:34 Dose: 2 mg Documented by: BERNARDINO Loperamide HCl (Loperamide 2 Mg Capsule) 2 mg PO NOW ONE Stop: 04/04/21 14:26 Last Admin: 04/04/21 14:35 Dose: 2 mg Documented by: BERNARDINO Lorazepam (Lorazepam 0.5 Mg Tablet) 1 mg PO NOW ONE Stop: 04/04/21 12:00 Last Admin: 04/04/21 12:03 Dose: 1 mg Documented by: JOSH Lorazepam (Lorazepam 0.5 Mg Tablet) 2 mg PO NOW ONE Stop: 04/04/21 13:04 Last Admin: 04/04/21 13:17 Dose: Not Given Documented by: BERNARDINO Lorazepam (Lorazepam 0.5 Mg Tablet) 1 mg PO NOW ONE Stop: 04/04/21 13:08 Last Admin: 04/04/21 13:16 Dose: 1 mg Documented by: BERNARDINO Reevaluation(s) Reevaluation #1: Patient reports improvements on feeling anxious, tremors, sweats and chills after 2 doses of Ativan 1 mg p.o. provided. Time: 14:10 Reevaluation #2: Patient reports improved anxious feeling, barely noticed tremors, no longer has feeling of sweats or chills. Also, diarrhea is slowing down now and is able to tolerate PO liquids and foods. Patient states will follow up with PCP Amanda Vang next day or two. Time: 18:00 Consultations Consultation #1: FAMILY MEDICINE RESIDENT consult in and the patient was evaluated by FAMILY MEDICINE RESIDENT. Patient is electing alcohol detox at home and is not considering in-house treatment since she is hoping not to miss work. She states had failed in-house treatments. She states has support system/friend who is recovered from substances and has been seeing her counselor frequently via Zoom meetings. She is planning to contact [facility] outpatiently. Time: 15:00 Vital Signs Vital signs: Vital Signs - 8 hr 04/04/21 13:22 04/04/21 13:24 04/04/21 13:30 Pulse Rate 91 H 84 78 Respiratory Rate 35 H 14 18 Blood Pressure 175/81 H 159/87 H Pulse Oximetry 96 95 94 04/04/21 15:15 04/04/21 15:16 04/04/21 15:30 Pulse Rate 89 90 89 Respiratory Rate 18 14 Blood Pressure 152/69 H 140/64 Pulse Oximetry 95 95 96 04/04/21 16:00 04/04/21 16:30 04/04/21 17:30 Pulse Rate 87 88 92 H Respiratory Rate 22 17 Blood Pressure 152/72 H 166/74 H 137/74 Pulse Oximetry 95 97 99 04/04/21 18:30 04/04/21 19:00 Pulse Rate 89 87 Respiratory Rate 18 17 Blood Pressure 142/76 H Pulse Oximetry 100 98 <Isamar Price DO - Last Filed: 04/12/21 02:27> Orders Ordered: Discontinued Medications Chlordiazepoxide HCl (Chlordiazepoxide 25 Mg Capsule) 50 mg PO NOW ONE Stop: 04/04/21 14:25 Last Admin: 04/04/21 14:35 Dose: 50 mg Documented by: BERNARDINO Chlordiazepoxide HCl (Chlordiazepoxide 25 Mg Capsule) 50 mg PO NOW ONE Stop: 04/04/21 18:39 Last Admin: 04/04/21 19:00 Dose: 50 mg Documented by: BERNARDINO Sodium Chloride (Normal Saline 0.9%) 1,000 mls @ 1,000 mls/hr IV BOLUS ONE Stop: 04/04/21 12:23 Last Infusion: 04/04/21 12:42 Dose: 0 mls/hr Documented by: Admin: 04/04/21 11:56 Dose: 1,000 mls/hr Documented by: JOSH Magnesium Sulfate (Magnesium Sulfate) 2 gm in 50 mls @ 25 mls/hr IV NOW ONE Stop: 04/04/21 15:02 Last Infusion: 04/04/21 14:37 Dose: 0 mls/hr Documented by: BERNARDINO Cosigned by: JOSH Admin: 04/04/21 13:21 Dose: 25 mls/hr Documented by: BERNARDINO Cosigned by: JOSH Lactated Ringer's (Lactated Ringers) 1,000 mls @ 150 mls/hr IV CONT SHARON Last Infusion: 04/04/21 14:38 Dose: 0 mls/hr Documented by: Admin: 04/04/21 13:23 Dose: 150 mls/hr Documented by: BERNARDINO Magnesium Sulfate 2 gm/ Folic Acid 1 mg/ Thiamine HCl 100 mg / Multivitamins 10 ml/ Sodium Chloride 1,015.2 mls @ 500 mls/hr IV NOW ONE Stop: 04/04/21 16:18 Last Infusion: 04/04/21 17:36 Dose: 0 mls/hr Documented by: Admin: 04/04/21 15:17 Dose: 500 mls/hr Documented by: BERNARDINO Loperamide HCl (Loperamide 2 Mg Capsule) 2 mg PO NOW ONE Stop: 04/04/21 13:04 Last Admin: 04/04/21 13:34 Dose: 2 mg Documented by: BERNARDINO Loperamide HCl (Loperamide 2 Mg Capsule) 2 mg PO NOW ONE Stop: 04/04/21 14:26 Last Admin: 04/04/21 14:35 Dose: 2 mg Documented by: BERNARDINO Lorazepam (Lorazepam 0.5 Mg Tablet) 1 mg PO NOW ONE Stop: 04/04/21 12:00 Last Admin: 04/04/21 12:03 Dose: 1 mg Documented by: JOSH Lorazepam (Lorazepam 0.5 Mg Tablet) 2 mg PO NOW ONE Stop: 04/04/21 13:04 Last Admin: 04/04/21 13:17 Dose: Not Given Documented by: BERNARDINO Lorazepam (Lorazepam 0.5 Mg Tablet) 1 mg PO NOW ONE Stop: 04/04/21 13:08 Last Admin: 04/04/21 13:16 Dose: 1 mg Documented by: BERNARDINO Vital Signs Vital signs: Vital Signs - 8 hr 04/04/21 13:22 04/04/21 13:24 04/04/21 13:30 Pulse Rate 91 H 84 78 Respiratory Rate 35 H 14 18 Blood Pressure 175/81 H 159/87 H Pulse Oximetry 96 95 94 04/04/21 15:15 04/04/21 15:16 04/04/21 15:30 Pulse Rate 89 90 89 Respiratory Rate 18 14 Blood Pressure 152/69 H 140/64 Pulse Oximetry 95 95 96 04/04/21 16:00 04/04/21 16:30 04/04/21 17:30 Pulse Rate 87 88 92 H Respiratory Rate 22 17 Blood Pressure 152/72 H 166/74 H 137/74 Pulse Oximetry 95 97 99 04/04/21 18:30 04/04/21 19:00 Pulse Rate 89 87 Respiratory Rate 18 17 Blood Pressure 142/76 H Pulse Oximetry 100 98 [facility] - Alcohol <Jayant Serrano HOME IMPROVEMENT CONTRACTOR - Last Filed: 04/04/21 21:49> Differential Diagnosis Differential diagnosis: Likely other (dehydration, electrolyte imbalance, infectious diarrhea) and alcohol withdrawal syndrome Medical Records Attestation: I reviewed the patient's medical records. Lab Data Attestation: I reviewed the patient's lab results. Result diagrams: 04/04/21 11:30 04/04/21 11:30 Labs: Lab Results 04/04/21 04/04/21 04/04/21 Range/Units 11:30 11:30 11:30 WBC 4.7 (4.5-11.0) X10^3/uL RBC 4.86 (4.0-5.2) X10^6/uL Hgb 14.1 (12.0-16.0) g/dL Hct 43.9 (36-46) % MCV 90.2 (80-100) fL MCH 28.9 (26-34) PG MCHC 32.1 (30-36) % RDW 16.9 H (11.6-14.8) % Plt Count 208 (150-400) X10^3/uL Neut % (Auto) 70.2 (50-75) % Lymph % (Auto) 20.2 L (25-40) % Ritchie % (Auto) 7.0 (3-14) % Eos % (Auto) 0.2 L (2-4) % Baso % (Auto) 2.4 H (0-2) % Neut # (Auto) 3300 (4494-6799) /uL Lymph # (Auto) 900 L (5402-5093) /uL Ritchie # (Auto) 300 (0-900) /uL Eos # (Auto) 0 (0-450) /uL Baso # (Auto) 100 (0-100) /uL Sodium 138 (137-145) mmol/L Potassium 4.0 (3.4-5.1) mmol/L Chloride 102 (98-107) mmol/L Carbon Dioxide 24 (22-32) mmol/L BUN 12 (7-17) mg/dL Creatinine 0.64 (0.52-1.04) mg/dL Estimated GFR > 60.0 (>60) mL/min BUN/Creatinine Ratio 18.8 (6-22) Glucose 151 H (70-100) mg/dL Calcium 8.5 (8.4-10.2) mg/dL Phosphorus 3.9 (2.5-4.5) mg/dL Magnesium 1.5 L (1.6-2.3) mg/dL Total Bilirubin 0.5 (0.2-1.3) mg/dL Conjugated Bilirubin 0.0 (0.0-0.3) md/dL Unconjugated Bilirubin 0.4 (0.0-1.1) mg/dL AST 43 H (14-36) IU/L ALT 24 (<35) IU/L Alkaline Phosphatase 120 (38-126) U/L Total Protein 7.6 (6.3-8.2) g/dL Albumin 4.1 (3.5-5.0) g/dL Globulin 3.5 (1.7-4.1) g/dL Albumin/Globulin Ratio 1.2 (1.0-2.8) Lipase 114 (23-300) U/L TSH 2.97 (0.47-4.68) uIU/mL U Opiates 300ng/mL cut (Negative) Ur Oxycodone Screen (Negative) Urine Methadone Screen (Negative) Ur Barbiturates Screen (Negative) U Tricyclic Antidepress (Negative) Ur Phencyclidine Scrn (Negative) Ur Amphetamines Screen (Negative) U Methamphetamines Scrn (Negative) Ur MDMA Scrn (Ecstasy) (Negative) U Benzodiazepines Scrn (Negative) Urine Cocaine Screen (Negative) U Marijuana (THC) Screen (Negative) Ethyl Alcohol < 10 ( - 10) mg/dL 04/04/21 Range/Units 14:04 WBC (4.5-11.0) X10^3/uL RBC (4.0-5.2) X10^6/uL Hgb (12.0-16.0) g/dL Hct (36-46) % MCV (80-100) fL MCH (26-34) PG MCHC (30-36) % RDW (11.6-14.8) % Plt Count (150-400) X10^3/uL Neut % (Auto) (50-75) % Lymph % (Auto) (25-40) % Ritchie % (Auto) (3-14) % Eos % (Auto) (2-4) % Baso % (Auto) (0-2) % Neut # (Auto) (4505-5471) /uL Lymph # (Auto) (6970-7894) /uL Ritchie # (Auto) (0-900) /uL Eos # (Auto) (0-450) /uL Baso # (Auto) (0-100) /uL Sodium (137-145) mmol/L Potassium (3.4-5.1) mmol/L Chloride (98-107) mmol/L Carbon Dioxide (22-32) mmol/L BUN (7-17) mg/dL Creatinine (0.52-1.04) mg/dL Estimated GFR (>60) mL/min BUN/Creatinine Ratio (6-22) Glucose (70-100) mg/dL Calcium (8.4-10.2) mg/dL Phosphorus (2.5-4.5) mg/dL Magnesium (1.6-2.3) mg/dL Total Bilirubin (0.2-1.3) mg/dL Conjugated Bilirubin (0.0-0.3) md/dL Unconjugated Bilirubin (0.0-1.1) mg/dL AST (14-36) IU/L ALT (<35) IU/L Alkaline Phosphatase (38-126) U/L Total Protein (6.3-8.2) g/dL Albumin (3.5-5.0) g/dL Globulin (1.7-4.1) g/dL Albumin/Globulin Ratio (1.0-2.8) Lipase (23-300) U/L TSH (0.47-4.68) uIU/mL U Opiates 300ng/mL cut Negative (Negative) Ur Oxycodone Screen Negative (Negative) Urine Methadone Screen Negative (Negative) Ur Barbiturates Screen Negative (Negative) U Tricyclic Antidepress Negative (Negative) Ur Phencyclidine Scrn Negative (Negative) Ur Amphetamines Screen Negative (Negative) U Methamphetamines Scrn Negative (Negative) Ur MDMA Scrn (Ecstasy) Negative (Negative) U Benzodiazepines Scrn Negative (Negative) Urine Cocaine Screen Negative (Negative) U Marijuana (THC) Screen Negative (Negative) Ethyl Alcohol ( - 10) mg/dL MDM Narrative Medical decision making narrative: This is a 55 year female has past medical history significant for alcohol abuse, status post bariatric surgery, depression present today to ED with chief complain of diarrhea and alcohol withdrawals symptoms. This is the 2nd day after she stopped drinking which she has about 6- 8 beers/day for many years. She attempted stop drinking several times but has not been successful for a prolonged time and she is still trying to deal with her son's recent . Patient received 1 L of normal saline, and 1 mg p.o. after she was triaged and when I evaluated patient at bedside. CIWA score initially and post 1 hr after two dose of Ativan was 6. Patient reassessed after 1 hour event and Imodium, patient continue to have moderate tremor despite she states feeling better. Patient still has frequent loose stool after Imodium and another dose of Imodium ordered. Changed IV fluid from gentle infusion of (2nd liter) LR to banana bag and starting patient on Librium in anticipation to discharge the patient to home. Patient was also evaluated by FAMILY MEDICINE RESIDENT. Before patient was discharge to home, she reports improved diarrhea and having less alcohol withdrawal symptoms. She reports is able to manage her symptoms at home at this time. Patient has no previous history of DT or seizures. She has good support system, counselor, and will contact [facility]. Medicated the patient another Librium 50 mg prior dc to home and discharged to home with a few tabs of Librium 25mg to use PRN next a couple of days. Advised patient to follow-up with PCP Amanda Vang next a couple of days and to consider restarting Wellbutrin. Return precautions discussed with patient and she verbalized understanding and agreement with the treatment plan. <Isamar Price, DO - Last Filed: 04/12/21 02:27> Lab Data Labs: Lab Results 04/04/21 04/04/21 04/04/21 Range/Units 11:30 11:30 11:30 WBC 4.7 (4.5-11.0) X10^3/uL RBC 4.86 (4.0-5.2) X10^6/uL Hgb 14.1 (12.0-16.0) g/dL Hct 43.9 (36-46) % MCV 90.2 (80-100) fL MCH 28.9 (26-34) PG MCHC 32.1 (30-36) % RDW 16.9 H (11.6-14.8) % Plt Count 208 (150-400) X10^3/uL Neut % (Auto) 70.2 (50-75) % Lymph % (Auto) 20.2 L (25-40) % Ritchie % (Auto) 7.0 (3-14) % Eos % (Auto) 0.2 L (2-4) % Baso % (Auto) 2.4 H (0-2) % Neut # (Auto) 3300 (7475-4325) /uL Lymph # (Auto) 900 L (7300-1894) /uL Ritchie # (Auto) 300 (0-900) /uL Eos # (Auto) 0 (0-450) /uL Baso # (Auto) 100 (0-100) /uL Sodium 138 (137-145) mmol/L Potassium 4.0 (3.4-5.1) mmol/L Chloride 102 (98-107) mmol/L Carbon Dioxide 24 (22-32) mmol/L BUN 12 (7-17) mg/dL Creatinine 0.64 (0.52-1.04) mg/dL Estimated GFR > 60.0 (>60) mL/min BUN/Creatinine Ratio 18.8 (6-22) Glucose 151 H (70-100) mg/dL Calcium 8.5 (8.4-10.2) mg/dL Phosphorus 3.9 (2.5-4.5) mg/dL Magnesium 1.5 L (1.6-2.3) mg/dL Total Bilirubin 0.5 (0.2-1.3) mg/dL Conjugated Bilirubin 0.0 (0.0-0.3) md/dL Unconjugated Bilirubin 0.4 (0.0-1.1) mg/dL AST 43 H (14-36) IU/L ALT 24 (<35) IU/L Alkaline Phosphatase 120 (38-126) U/L Total Protein 7.6 (6.3-8.2) g/dL Albumin 4.1 (3.5-5.0) g/dL Globulin 3.5 (1.7-4.1) g/dL Albumin/Globulin Ratio 1.2 (1.0-2.8) Lipase 114 (23-300) U/L TSH 2.97 (0.47-4.68) uIU/mL U Opiates 300ng/mL cut (Negative) Ur Oxycodone Screen (Negative) Urine Methadone Screen (Negative) Ur Barbiturates Screen (Negative) U Tricyclic Antidepress (Negative) Ur Phencyclidine Scrn (Negative) Ur Amphetamines Screen (Negative) U Methamphetamines Scrn (Negative) Ur MDMA Scrn (Ecstasy) (Negative) U Benzodiazepines Scrn (Negative) Urine Cocaine Screen (Negative) U Marijuana (THC) Screen (Negative) Ethyl Alcohol < 10 ( - 10) mg/dL 04/04/21 Range/Units 14:04 WBC (4.5-11.0) X10^3/uL RBC (4.0-5.2) X10^6/uL Hgb (12.0-16.0) g/dL Hct (36-46) % MCV (80-100) fL MCH (26-34) PG MCHC (30-36) % RDW (11.6-14.8) % Plt Count (150-400) X10^3/uL Neut % (Auto) (50-75) % Lymph % (Auto) (25-40) % Ritchie % (Auto) (3-14) % Eos % (Auto) (2-4) % Baso % (Auto) (0-2) % Neut # (Auto) (5444-1040) /uL Lymph # (Auto) (4384-1539) /uL Ritchie # (Auto) (0-900) /uL Eos # (Auto) (0-450) /uL Baso # (Auto) (0-100) /uL Sodium (137-145) mmol/L Potassium (3.4-5.1) mmol/L Chloride (98-107) mmol/L Carbon Dioxide (22-32) mmol/L BUN (7-17) mg/dL Creatinine (0.52-1.04) mg/dL Estimated GFR (>60) mL/min BUN/Creatinine Ratio (6-22) Glucose (70-100) mg/dL Calcium (8.4-10.2) mg/dL Phosphorus (2.5-4.5) mg/dL Magnesium (1.6-2.3) mg/dL Total Bilirubin (0.2-1.3) mg/dL Conjugated Bilirubin (0.0-0.3) md/dL Unconjugated Bilirubin (0.0-1.1) mg/dL AST (14-36) IU/L ALT (<35) IU/L Alkaline Phosphatase (38-126) U/L Total Protein (6.3-8.2) g/dL Albumin (3.5-5.0) g/dL Globulin (1.7-4.1) g/dL Albumin/Globulin Ratio (1.0-2.8) Lipase (23-300) U/L TSH (0.47-4.68) uIU/mL U Opiates 300ng/mL cut Negative (Negative) Ur Oxycodone Screen Negative (Negative) Urine Methadone Screen Negative (Negative) Ur Barbiturates Screen Negative (Negative) U Tricyclic Antidepress Negative (Negative) Ur Phencyclidine Scrn Negative (Negative) Ur Amphetamines Screen Negative (Negative) U Methamphetamines Scrn Negative (Negative) Ur MDMA Scrn (Ecstasy) Negative (Negative) U Benzodiazepines Scrn Negative (Negative) Urine Cocaine Screen Negative (Negative) U Marijuana (THC) Screen Negative (Negative) Ethyl Alcohol ( - 10) mg/dL Discharge Plan Departure Patient Disposition: Home Clinical Impression: Alcohol dependence with withdrawal Qualifiers: Complication of substance-induced condition: uncomplicated Qualified Code(s): F10.230 - Alcohol dependence with withdrawal, uncomplicated Diarrhea Qualifiers: Diarrhea type: unspecified type Qualified Code(s): R19.7 - Diarrhea, unspecified Instructions: Diarrhea (Alternative Therapy), Diarrhea, DI for Drug or Alcohol Withdrawal Activity Restrictions/Additional Instructions: You have been diagnosed with alcohol withdrawal symptoms and diarrhea. What to do: *Take your medications as directed. Please take Imodium as needed for diarrhea and please follow medication package. Please hydrate well. Eat BRAT diet. You can take Librium 25 mg as needed upto 4 times a day tomorrow, twice a day day after and before bed on day 3. Please do not combine alcohol use and Librium at the same time since this can cause increase in sedation and respiratory depression. Librium has been admitted to [facility]. *Follow up with your primary care provider in 2-3 days, call for an appointment. Let them know you were seen in the ED and that we asked you to be seen in [facility]. Please discuss continuing Wellbutrin with PCP. *Return to ED if you have any new, worsening, or concerning symptoms, such as [chest pain, breathing difficulty, near fainting, able to tolerate fluids, blood in her stool or vomit, seizure, or any worsening symptoms.]. Prescriptions: New chlordiazepoxide HCl 25 mg capsule 25 mg PO Q6H PRN (Reason: alcohol withdrawal) Qty: 7 RF: 0 No Action levothyroxine 125 mcg tablet 125 mcg PO DAILY Qty: 90 RF: 3 pramipexole 0.5 mg tablet 0.5 mg PO BEDTIME Qty: 90 RF: 1 venlafaxine 150 mg capsule,extended release 24hr 150 mg PO DAILY Qty: 90 RF: 0 Referrals: Ani Mckeon PA-C [Primary Care Provider] - Stand Alone Forms: Work Release Note <Isamar Price DO - Last Filed: 04/12/21 02:27> Cosign ED Attending Deneenature Attestation: I was immediately available in the department for consultation. Documentation has been reviewed. Case was discussed in agree with plan.
[2021-04-04] MEDS: MAGNESIUM SULFATE 2 GM/50 ML PIGGYBACK IV (13:21)
[2021-04-04] MEDS: LACTATED RINGERS 1,000 ML 150 ML IV (13:23)
[2021-04-04] MEDS: LOPERAMIDE 2 MG CAPSULE PO ×2 (13:34→14:35)
[2021-04-04 14:16] LABS: UR Morphine/Opiate cutoff 300 Negative (Negative); Ur Creatinine Normal (Normal); Ur Specific Gravity Normal (Normal); Urine Amphetamines Negative (Negative); Urine Barbiturates Negative (Negative); Urine Benzodiazepines Negative (Negative); Urine Cocaine Negative (Negative); Urine MDMA Negative (Negative); Urine Methadone Negative (Negative); Urine Methamphetamines Negative (Negative); Urine Oxycodone Negative (Negative); Urine Phencyclidine Negative (Negative); Urine Tetrahydrocannabinol Negative (Negative); Urine Tricyclic Antidepressant Negative (Negative); Urine pH Normal (Normal)
[2021-04-04] MEDS: chlordiazePOXIDE 25 MG CAPSULE 50 MG PO ×2 (14:35→19:00)
[2021-04-04] MEDS: MAGNESIUM SULFATE 2 GM, FOLIC ACID 1 MG, THIAMINE 100 MG, MULTIVITAMIN 10 ML in SODIUM ... IV (15:17)
--- NOTE | 2021-04-04 15:22 | CM.SWNOTE ---
OCEANOGRAPHY TEACHER Assessment OCEANOGRAPHY TEACHER - Market Research Lead Assessment OCEANOGRAPHY TEACHER/Market Research Lead Assessment Time Spent with Patient Start date 04/04/21 Visit Start Time 14:20 End date 04/04/21 Visit End Time 14:55 Total time Care Management spent on 35 patient visit-in minutes Substance Abuse Screening Include Onset, Duration, Intensity Presenting Problem Patient presents to this ED with ETOH withdrawal symptoms and diarrhea. Precipitating Event(s) Patient states that her son in November 2020, and she has been in a routine the last year of drinking heavily on Fridays and Saturdays. Patient Strengths Patient came to this ED seeking help and reports she is trying to stop drinking. Current Behavioral Health Provider(s) Therapist Benedicto Guillen Include Facility, Provider, Ph. # Family Hx of Behavioral Abuse None reported Rehab Facilities? ((Date(s), Location(s) Patient states she went to ) [facility] in [place], [place] in November 2019. History of Withdrawal? Seizures? None reported Longest Period of Sobriety Patient states she has always drank but started drinking more frequently and heavily after her gastric bypass surgery in November 2019. Patient states she had some length of time where she was sober after inpatient but she did not report how long. Psychosocial information & Support Patient is 55 y/o female who Systems resides in [place] and currently lives with 17 y/o son. Patient states she has two friends and coworkers who are sober supports who are also in recovery and her family is a support to her. School/Work Patient works at [employer] and works Mondays- Fridays, patient states she has today off work as it is a paid holiday. Legal Concerns Legal Matters - Outstanding Issues Patient states that she was pulled over for a DUI in March [address] date on 04/26/21 Mental Status Orientation (Person/Place/Time) A/Ox4 Stated Mood Better Affect (Congruent with Mood?) euthymic, full range, congruent with mood. Thought Content - Specify/Describe None reported. Obsessions, Delusions, Hallucinations Thought Processes (Rjujztq-Rbgiovtq-Umye Coherent Hqtixbad-Yemqsfkx-Opuufljhnu- Yamhugbreyancz-Kzbiqzo-Wvdwmwsiaexx- Thought Blocking) Speech (Lripjz-Qgqd-Mrkrrru-Rapid-Soft- Normal Loud-Pressured) Motor (Bifnwx-Xwtthmkyc-Sigd-Other) Normal Insight (Papz-Pdwu-Rzru/Limited) Fair/good Judgement (Mamo-Laiq-Skiy/Limited) fair Impulse Control (Adequate-Impaired) adequate during assessment Memory (Eobiaqzvn-Qqasby-Norpwy, intact, not formally assessed Impaired-Intact) Concentration (Intact-Impaired) intact Attention (Intact-Impaired) intact Behavior (Appropriate-Inappropriate) appropriate Additional Comment Patient reports dx of depression and anxiety and reports she is not prescribed any medication. Risk Assessment Suicidal Ideation (Plan) No Homicidal Ideation (Plan) No Intervention Intervention OCEANOGRAPHY TEACHER meets with patient. Patient reports that she drank heavily on Sunday and Sunday and drank 8 beers and /or mini wine bottles. Patient states she has a few drinks every day after work and generally gets them from the convenience store on her way home from work. Patient states she is not interested in detox and states she went to detox and inpatient treatment in 2019. Patient states that inpatient worked for a little while. Patient states she goes to AA meetings and has sober supports. Patient endorses that she has a therapist and has begun to discuss her substance use with therapist. OCEANOGRAPHY TEACHER discusses outpatient options for patient and patient states she will call [facility] to schedule intake. Patient states she will contact sober supports when she feels like drinking. Patient reports concern about missing work and concern for insurance covering inpatient treatment and does not endorse this plan and this time. It is the opinion of this OCEANOGRAPHY TEACHER that patient is safe to d/c to the community when medically clear. OCEANOGRAPHY TEACHER reviews the above with ED provider RIO Serrano and ANDRES Ragsdale, both indicate agreement and understanding. Plan RA Plan Patient to d/c home when medically clear, patient to follow through with scheduling outpatient intake at [facility] and utilize sober supports. MITESH Fry
== END 2021-04-04 19:20 | disposition home or self-care (01) ==
PROVIDERS: Emergency Medicine; Emergency Provider Nurse Practitioner Family; PCP Physician Assistant
DX: F10.230 Alcohol dependence with withdrawal, uncomplicated (principal); R19.7 Diarrhea, unspecified
CPT/HCPCS: 36415; 80053; 80076; 80305; 80320; 83690; 83735; 84100; 84443; 85025; 96360; 96361; 99284; J3475

== ENCOUNTER 2021-04-27 21:25 | Inpatient (IN) | payer OTHER, MEDICAID, SELFPAY ==
[2021-04-27 21:36] VITALS: BP 144/81; PULSE 99; RESP 22; TEMP 37.2; O2SAT 96
--- NOTE | 2021-04-27 21:40 | DI.RAD.S_ITS ---
PROCEDURE: XR CHEST 2V INDICATIONS: shortness of breath TECHNIQUE: 2 views of the chest were acquired. COMPARISON: [facility], CR, XR CHEST 1V, 08/04/2019, 6:50. [facility], CR, XR CHEST 2V, 03/20/2018, 22:24. FINDINGS: Surgical changes and devices: None. Lungs and pleura: Mild airspace opacity in the right mid lung field, new. Prominent perihilar markings bilaterally similar to before. No pleural effusions or pneumothorax. Mediastinum: Mediastinal contours are unchanged. Heart size is within normal limits. Bones and chest wall: No suspicious bony abnormalities. Soft tissues appear unremarkable. IMPRESSION: Mild airspace opacity in the right mid lung field. This could represent pneumonia. Atelectasis could have a similar appearance. Dictated by: Jono Herrera M.D. on 04/27/2021 at 22:20 Approved by: Jono Herrera M.D. on 04/27/2021 at 22:22
[2021-04-27 21:59] LABS: Add Manual Diff / Slide Review NO; Basophils Absolute Auto 300 /uL (0-100); Basophils Percent Auto 3.5 % (0-2); Eosinophils Absolute Auto 0 /uL (0-450); Eosinophils Percent Auto 0.5 % (2-4); Hematocrit 41.6 % (36-46); Hemoglobin 13.6 g/dL (12.0-16.0); Lymphocytes Absolute Auto 500 /uL (1100-4500); Lymphocytes Percent Auto 5.6 % (25-40); Mean Corpuscular HGB Conc 32.8 % (30-36); Mean Corpuscular Hemoglobin 29.7 PG (26-34); Mean Corpuscular Volume 90.7 fL (80-100); Monocytes Absolute Auto 500 /uL (0-900); Monocytes Percent Auto 5.5 % (3-14); Neutrophils Absolute Auto 7100 /uL (1500-7000); Neutrophils Percent Auto 84.9 % (50-75); Platelet Count 118 X10^3/uL (150-400); Red Blood Cell Count 4.59 X10^6/uL (4.0-5.2); Red Cell Distribution Width 17.4 % (11.6-14.8); White Blood Cell Count 8.4 X10^3/uL (4.5-11.0)
[2021-04-27 22:08] VITALS: PULSE 83; RESP 15
[2021-04-27 22:09] LABS: Alanine Aminotransferase 26 IU/L (<35); Albumin 3.4 g/dL (3.5-5.0); Albumin Globulin Ratio 1.1 (1.0-2.8); Alkaline Phosphatase 113 U/L (38-126); Aspartate Aminotransferase 43 IU/L (14-36); BUN Creatinine Ratio 13.1 (6-22); Bilirubin Total 0.5 mg/dL (0.2-1.3); Blood Urea Nitrogen 8 mg/dL (7-17); Calcium 7.5 mg/dL (8.4-10.2); Carbon Dioxide 23 mmol/L (22-32); Chloride 102 mmol/L (98-107); Estimated Glomerular Filt Rate > 60.0 mL/min (>60); Globulin 3.1 g/dL (1.7-4.1); Glucose 252 mg/dL (70-100); HEMOLYSIS < 15 (0-50); Potassium 4.2 mmol/L (3.4-5.1); Sodium 135 mmol/L (137-145); Total Protein 6.5 g/dL (6.3-8.2)
[2021-04-27 22:26] LABS: Lactate (Lactic Acid) 4.5 mmol/L (0.7-2.1)
[2021-04-27 22:30] VITALS: PULSE 76; RESP 15; O2SAT 93
--- NOTE | 2021-04-27 22:34 | ED.GENADULT ---
HPI - General Adult General Chief complaint: Shortness of Breath/Dyspnea Stated complaint: chest congestion, detoxing Time Seen by Provider: 04/27/21 22:28 Source: patient Mode of arrival: Ambulatory History of Present Illness HPI narrative: 55-year-old woman with a history of alcohol use disorder, depression, hypothyroidism and no previously diagnosed diabetes presents today complaining of general malaise pain in her right lung, cough, fevers, myalgias and chest tightness. She also noted sweats and shaking chills this morning. She reports that she has frequent diarrhea and this has not changed. She has not been vomiting. She states she has been trying to taper her alcohol use. She reports that she typically drinks at least 6 beers a night but is down to 3 in an attempt to stop drinking. She is hoping that we are able to help her in this endeavor. She denies headache, neck pain, palpitations. Related Data Previous Rx's Medication Instructions Recorded levothyroxine 125 mcg tablet 125 mcg PO DAILY #90 tab 02/23/20 pramipexole 0.5 mg tablet 0.5 mg PO BEDTIME #90 tab 02/23/20 venlafaxine 150 mg 150 mg PO DAILY #90 cap 02/25/21 capsule,extended release 24 hr chlordiazepoxide HCl 25 mg PO Q6H PRN #7 cap 04/04/21 Allergies Allergy/AdvReac Type Severity Reaction Status Date / Time animal dander [ANIMAL DANDER] Allergy Intermediate ITCHY Verified 05/04/20 14:27 WATERY EYES AND SNEEZING grass pollen AdvReac Intermediate itching Verified 05/04/20 14:27 house dust AdvReac Intermediate itching Verified 05/04/20 14:27 Review of Systems Review of Systems Narrative: Remainder of complete review of systems is otherwise unremarkable except for that included in the HPI. Patient History Medical History Acquired hypothyroidism (~2016) Alcohol abuse Allergic rhinitis Depression (Unknown) Obstructive sleep apnea Peripheral edema (~2010) Restless leg Varicose veins of both lower extremities with complications (~2010) Surgical History History of Vasu-en-Y gastric bypass History of thyroidectomy Status post breast lumpectomy Status post laparoscopic cholecystectomy Family History Sister Age: 57 History of breast cancer Social History marital status: household members: family occupational status: employed Smoking Status: Former smoker Tobacco: How many years used: 3 second hand exposure: No alcohol intake: current substance use type: does not use Type(s) of exercise: none Smoking Status: Former smoker alcohol intake frequency: 3 or more drinks per day Alcohol type: beer, wine and hard liquor Substance Use Type: marijuana and other Exam Narrative Exam Narrative: General: Chronically ill-appearing but Able to give a complete and coherent history. Well-nourished well-developed HEENT: Moist mucous membranes, normal sclera with reactive pupils, Neck: No JVD, supple Respiratory: Lungs without wheeze but rhonchi appreciated in the right mid axillary line. No retractions and able to speak in full sentences with. Full and symmetrical air movement Cardiac: Regular rate and rhythm no murmurs no bruits Abdomen: Soft, nontender, good bowel tones, no flank pain Skin: Warm and dry, no rashes Neurologic: mild tremor but otherwise Grossly neurologically intact with no obvious asymmetries or abnormalities Extremities: No trauma, well perfused Psych: Cooperative, appropriate insight and affect Initial Vital Signs Initial Vital Signs: Vital Signs Temperature 99.0 F 04/27/21 21:36 Pulse Rate 99 H 04/27/21 21:36 Respiratory Rate 22 04/27/21 21:36 Blood Pressure 144/81 H 04/27/21 21:36 Pulse Oximetry 96 04/27/21 21:36 Course Orders Ordered: ED Orders 04/27/21 21:40 XR chest 2V Stat EKG-12 Lead Stat Measure peak expiratory flow ONCE RT Consult Eval and Treat Now 04/27/21 21:50 Complete Blood Count AUTO DIFF Stat Comprehensive Metabolic Panel Stat Ethanol (ETOH) Stat Lactate (Lactic Acid) Stat 04/27/21 22:45 COVID19 - ADMIT (REGISTERED NURSE CARDIAC TELEMETRY swab/PCR) Stat 04/27/21 22:47 COVID19 - ADMIT (REGISTERED NURSE CARDIAC TELEMETRY swab/PCR) Stat 04/28/21 01:43 Hemoglobin A1C% w Est Avg Glu Stat Troponin I Stat Discontinued Medications Sodium Chloride (Normal Saline 0.9%) 1,000 mls @ 1,000 mls/hr IV BOLUS ONE Stop: 04/27/21 23:36 Last Infusion: 04/27/21 23:46 Dose: 0 mls/hr Documented by: Admin: 04/27/21 22:39 Dose: 1,000 mls/hr Documented by: RAMIN Thiamine HCl 100 mg/ Sodium (Chloride) 101 mls @ 404 mls/hr IV NOW ONE Stop: 04/27/21 22:47 Last Infusion: 04/27/21 23:27 Dose: 0 mls/hr Documented by: Admin: 04/27/21 23:10 Dose: 404 mls/hr Documented by: RAMIN Ceftriaxone Sodium 2,000 mg/ (Sodium Chloride) 100 mls @ 200 mls/hr IV NOW ONE Stop: 04/27/21 22:47 Last Infusion: 04/28/21 00:06 Dose: 0 mls/hr Documented by: Admin: 04/27/21 23:24 Dose: 200 mls/hr Documented by: RAMIN Azithromycin 500 mg/ Dextrose 250 mls @ 250 mls/hr IV NOW ONE Stop: 04/27/21 22:47 Last Admin: 04/28/21 00:04 Dose: 250 mls/hr Documented by: RAMIN Sodium Chloride (Normal Saline 0.9%) 1,000 mls @ 1,000 mls/hr IV BOLUS ONE Stop: 04/27/21 23:45 Last Infusion: 04/28/21 00:07 Dose: 0 mls/hr Documented by: Admin: 04/27/21 22:48 Dose: 1,000 mls/hr Documented by: RAMIN Sodium Chloride (Normal Saline 0.9%) 1,000 mls @ 1,000 mls/hr IV BOLUS ONE Stop: 04/28/21 01:50 Last Admin: 04/28/21 00:57 Dose: 1,000 mls/hr Documented by: Lorazepam (Lorazepam 2 Mg/Ml Inj) 2 mg 0.02 mg/kg (2 mg) IV NOW ONE Stop: 04/27/21 22:47 Last Admin: 04/27/21 23:09 Dose: 2 mg Documented by: RAMIN Vital Signs Vital signs: Vital Signs - 8 hr 04/27/21 21:36 Temperature 99.0 F Pulse Rate 99 H Respiratory Rate 22 Blood Pressure 144/81 H Pulse Oximetry 96 Medical Decision Making Medical Records Medical records reviewed: Yes I reviewed the patient's medical records. Lab Data Lab results reviewed: Yes I reviewed the patient's lab results. Result diagrams: 04/27/21 21:50 04/27/21 21:50 Labs: Lab Results 04/27/21 04/27/21 04/27/21 Range/Units 21:50 21:50 21:50 WBC 8.4 (4.5-11.0) X10^3/uL RBC 4.59 (4.0-5.2) X10^6/uL Hgb 13.6 (12.0-16.0) g/dL Hct 41.6 (36-46) % MCV 90.7 (80-100) fL MCH 29.7 (26-34) PG MCHC 32.8 (30-36) % RDW 17.4 H (11.6-14.8) % Plt Count 118 L (150-400) X10^3/uL Neut % (Auto) 84.9 H (50-75) % Lymph % (Auto) 5.6 L (25-40) % [place] % (Auto) 5.5 (3-14) % Eos % (Auto) 0.5 L (2-4) % Baso % (Auto) 3.5 H (0-2) % Neut # (Auto) 7100 H (2750-1317) /uL Lymph # (Auto) 500 L (0043-4018) /uL [place] # (Auto) 500 (0-900) /uL Eos # (Auto) 0 (0-450) /uL Baso # (Auto) 300 H (0-100) /uL Sodium 135 L (137-145) mmol/L Potassium 4.2 (3.4-5.1) mmol/L Chloride 102 (98-107) mmol/L Carbon Dioxide 23 (22-32) mmol/L BUN 8 (7-17) mg/dL Creatinine 0.61 (0.52-1.04) mg/dL Estimated GFR > 60.0 (>60) mL/min BUN/Creatinine Ratio 13.1 (6-22) Glucose 252 H (70-100) mg/dL Lactate 4.5 H* (0.7-2.1) mmol/L Calcium 7.5 L (8.4-10.2) mg/dL Total Bilirubin 0.5 (0.2-1.3) mg/dL AST 43 H (14-36) IU/L ALT 26 (<35) IU/L Alkaline Phosphatase 113 (38-126) U/L Total Protein 6.5 (6.3-8.2) g/dL Albumin 3.4 L (3.5-5.0) g/dL Globulin 3.1 (1.7-4.1) g/dL Albumin/Globulin Ratio 1.1 (1.0-2.8) Ethyl Alcohol ( - 10) mg/dL SARS-CoV-2 (PCR) (Negative) 04/27/21 04/27/21 04/27/21 Range/Units 21:50 22:45 23:50 WBC (4.5-11.0) X10^3/uL RBC (4.0-5.2) X10^6/uL Hgb (12.0-16.0) g/dL Hct (36-46) % MCV (80-100) fL MCH (26-34) PG MCHC (30-36) % RDW (11.6-14.8) % Plt Count (150-400) X10^3/uL Neut % (Auto) (50-75) % Lymph % (Auto) (25-40) % [place] % (Auto) (3-14) % Eos % (Auto) (2-4) % Baso % (Auto) (0-2) % Neut # (Auto) (4468-4163) /uL Lymph # (Auto) (5148-9008) /uL [place] # (Auto) (0-900) /uL Eos # (Auto) (0-450) /uL Baso # (Auto) (0-100) /uL Sodium (137-145) mmol/L Potassium (3.4-5.1) mmol/L Chloride (98-107) mmol/L Carbon Dioxide (22-32) mmol/L BUN (7-17) mg/dL Creatinine (0.52-1.04) mg/dL Estimated GFR (>60) mL/min BUN/Creatinine Ratio (6-22) Glucose (70-100) mg/dL Lactate 3.0 H (0.7-2.1) mmol/L Calcium (8.4-10.2) mg/dL Total Bilirubin (0.2-1.3) mg/dL AST (14-36) IU/L ALT (<35) IU/L Alkaline Phosphatase (38-126) U/L Total Protein (6.3-8.2) g/dL Albumin (3.5-5.0) g/dL Globulin (1.7-4.1) g/dL Albumin/Globulin Ratio (1.0-2.8) Ethyl Alcohol 165 H ( - 10) mg/dL SARS-CoV-2 (PCR) Negative (Negative) Urine Dip Bedside Urine Glucose Negative Bedside Urine Bilirubin - Negative Bedside Urine Ketone - Negative Urine Specific [place] 1.020 Bedside Urine Occult Blood - Negative Bedside Urine pH 5.5 Bedside Urine Protein - Negative Bedside Urine Urobilinogen - Negative Bedside Urine Nitrite - Negative Bedside Urine Leukocytes - Negative Esterase Point of care testing: Urine Dip Bedside Urine Glucose Negative Bedside Urine Bilirubin - Negative Bedside Urine Ketone - Negative Urine Specific [place] 1.020 Bedside Urine Occult Blood - Negative Bedside Urine pH 5.5 Bedside Urine Protein - Negative Bedside Urine Urobilinogen - Negative Bedside Urine Nitrite - Negative Bedside Urine Leukocytes - Negative Esterase Imaging Data Chest x-ray: Radiologist's Impression: FINDINGS: Surgical changes and devices: None. Lungs and pleura: Mild airspace opacity in the right mid lung field, new. Prominent perihilar markings bilaterally similar to before. No pleural effusions or pneumothorax. Mediastinum: Mediastinal contours are unchanged. Heart size is within normal limits. Bones and chest wall: No suspicious bony abnormalities. Soft tissues appear unremarkable. IMPRESSION: Mild airspace opacity in the right mid lung field. This could represent pneumonia. Atelectasis could have a similar appearance. Dictated by: Jono Herrera M.D. on 04/27/2021 at 22:20 ECG Data Attestation: I personally reviewed and interpreted this ECG as follows: Interpretation: NSR at a rate of 83 Leftward axis, normal intervals No acute ischemic changes MDM Narrative Medical decision making narrative: 55-year-old woman with a right middle lobe pneumonia. Given her history of alcohol use disorder possibility of aspiration pneumonia is entertained. Initial lactic acid is elevated at 4.5 and she is mildly tachycardic. Fluids and antibiotics for a community-acquired pneumonia are initiated. Second lactic acid is coming down nicely however patient continues to complain of cough overall chest tightness and symptoms of increasing alcohol withdrawal. She does want help with her drinking. She does not currently carry a diagnosis of diabetes however she did have the blood sugar noted to be in the 250 range. Hemoglobin A1c has been added. She is currently not hypoxic nor hypotensive however with the developing probable right middle lobe pneumonia and acute alcohol withdrawal symptoms will opt to admit her to the hospital for antibiotics and withdrawal management. She will need follow-up on that elevated blood sugar. Care is reviewed with the hospitalist service. She is safe for transfer to the floor. Discharge Plan Departure Patient Disposition: Admitted As Inpatient Clinical Impression: Elevated lactic acid level, Acute hyperglycemia Pneumonia Qualifiers: Pneumonia type: due to unspecified organism Laterality: right Lung location: middle lobe of lung Qualified Code(s): J18.9 - Pneumonia, unspecified organism Alcohol withdrawal Qualifiers: Complication of substance-induced condition: uncomplicated Qualified Code(s): F10.230 - Alcohol dependence with withdrawal, uncomplicated Admit Date/Time: 04/28/21 02:13 Admit Provider: Yanet Eldridge
[2021-04-27] MEDS: SODIUM CHLORIDE 0.9% 1,000 ML 1000 ML IV ×2 (22:39→22:48)
[2021-04-27 23:00] VITALS: PULSE 75; RESP 8; O2SAT 96
[2021-04-27 23:02] LABS: Ethanol (ETOH) 165 mg/dL
[2021-04-27] MEDS: LORazepam 2 MG/ML INJ IV (23:09)
[2021-04-27] MEDS: THIAMINE 100 MG in SODIUM CHLORIDE 0.9% 100 ML 404 ML IV (23:10)
[2021-04-27] MEDS: cefTRIAXone 2,000 MG in SODIUM CHLORIDE 0.9% 100 ML 200 ML IV (23:24)
[2021-04-27 23:30] VITALS: PULSE 75; RESP 15; O2SAT 91
[2021-04-27 23:54] LABS: Reflexed Lactate in 2 Hours Y
[2021-04-27 23:57] LABS: COVID19 - ADMIT (NP swab/PCR) Negative (Negative)
[2021-04-28] VITALS (16 sets, daily range): BP systolic 125–166; BP diastolic 64–97; PULSE 72–98; RESP 15–33; TEMP 36.2–37.2; O2SAT 87–99; BMI 41.9
[2021-04-28] MEDS: AZITHROMYCIN 500 MG in DEXTROSE 5% IN WATER 250 ML IV (00:04)
[2021-04-28] MEDS: SODIUM CHLORIDE 0.9% 1,000 ML 1000 ML IV (00:57)
[2021-04-28 02:29] LABS: Troponin I < 0.012 ng/mL (0.01-0.034)
[2021-04-28] MEDS: AMPICILLIN/SULBACTAM 3 GM 3 GM in SODIUM CHLORIDE 0.9% 100 ML IV ×4 (03:56→21:56)
--- NOTE | 2021-04-28 04:14 | PC.NURSE ---
Admitted to room 220, C/O SOB & dyspnea & alcohol abuse. Alert & oriented x4, pleasant, CIWA score 1-2, slight anxiety & fine tremors to bilateral hands. Pain level 3/10 only when coughing non productive cough. Instructed not to get up OOB without any assistance. Call light within reached, seizure pads in placed & bed alarm activate. Will continue POC & monitor.
[2021-04-28 04:33] LABS: Hemoglobin A1C% w Est Avg Glu 5.3 % (4.0-6.0)
[2021-04-28] MEDS: MAGNESIUM SULFATE 2 GM, FOLIC ACID 1 MG, THIAMINE 100 MG, MULTIVITAMIN 10 ML in SODIUM ... IV (05:02)
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
[2021-04-28 07:29] LABS: Add Manual Diff / Slide Review NO; Basophils Absolute Auto 0 /uL (0-100); Basophils Percent Auto 0.2 % (0-2); Eosinophils Absolute Auto 0 /uL (0-450); Hematocrit 37.5 % (36-46); Hemoglobin 12.1 g/dL (12.0-16.0); Lymphocytes Absolute Auto 700 /uL (1100-4500); Lymphocytes Percent Auto 12.1 % (25-40); Mean Corpuscular HGB Conc 32.3 % (30-36); Mean Corpuscular Hemoglobin 29.3 PG (26-34); Mean Corpuscular Volume 90.7 fL (80-100); Monocytes Absolute Auto 500 /uL (0-900); Monocytes Percent Auto 9.1 % (3-14); Neutrophils Absolute Auto 4500 /uL (1500-7000); Neutrophils Percent Auto 78.6 % (50-75); Platelet Count 101 X10^3/uL (150-400); Red Blood Cell Count 4.13 X10^6/uL (4.0-5.2); Red Cell Distribution Width 17.1 % (11.6-14.8); White Blood Cell Count 5.7 X10^3/uL (4.5-11.0)
[2021-04-28 07:56] LABS: BUN Creatinine Ratio 14.3 (6-22); Blood Urea Nitrogen 6 mg/dL (7-17); Calcium 6.8 mg/dL (8.4-10.2); Carbon Dioxide 23 mmol/L (22-32); Chloride 109 mmol/L (98-107); Estimated Glomerular Filt Rate > 60.0 mL/min (>60); Glucose 86 mg/dL (70-100); HEMOLYSIS < 15 (0-50); Potassium 3.6 mmol/L (3.4-5.1); Sodium 137 mmol/L (137-145)
[2021-04-28] MEDS: LEVOTHYROXINE 125 MCG TABLET PO (09:12)
[2021-04-28] MEDS: ENOXAPARIN 40 MG/0.4 ML SYRINGE SUBCUT (09:13)
[2021-04-28] MEDS: LORazepam 1 MG TABLET 2 MG PO (09:18)
[2021-04-28] MEDS: CALCIUM GLUCONATE 9.3 MEQ in SODIUM CHLORIDE 0.9% 50 ML 140 ML IV (12:30)
--- NOTE | 2021-04-28 12:48 | CM.DANOTE ---
DCP: Case received, EMR reviewed. Patient as been sleeping. Have not been able to converse with patient as of yet, but did discuss during team rounds. DCP assessment was completed based upon information available in chart, as well as during rounds. Patient is a 55 year old who admitted early this morning to the care of the hospitalist team. PCP: Amanda SAUER. Payer: confirmed: [facility]. Patient came to the hospital via family vehicle secondary to having malaise, as well as wanting help with her alcohol use. Patient does hold current diagnosis of pneumonia, and is also being monitored for alcohol withdrawal. Patient is currently on CIWA protocol, and has been sleeping. Discussed patient during team rounds, and patient is wanting to have inpatient rehab for alcohol use. Have not been able to meet with patient, she has been sleeping. She resides in [place]. According to notes, she resides with family, but uncertain as to which family member. Her mother, Lalita, is point of contact. P: DCP to continue to follow. Will attempt to meet with patient today if awake, otherwise, will need to follow up with her regarding inpatient rehab facility. Will need to consult with [facility] upon types of rehab available. Mary Mauricio RN/Utility Aide
[2021-04-28] MEDS: ACETAMINOPHEN 325 MG TABLET 650 MG PO (13:29)
[2021-04-28] MEDS: ONDANSETRON 4 MG/2 ML INJ IV (16:53)
[2021-04-28] MEDS: LORazepam 1 MG TABLET PO ×2 (16:53→21:49)
[2021-04-28] MEDS: PRAMIPEXOLE 0.25 MG TABLET 0.5 MG PO (21:49)
[2021-04-28] MEDS: guaiFENesin Solution 100 MG/5 ML UDC 200 MG PO (21:49)
[2021-04-29] VITALS (10 sets, daily range): BP systolic 86–143; BP diastolic 65–95; PULSE 76–96; RESP 16–18; TEMP 36.6–37.3; O2SAT 94–99
[2021-04-29] MEDS: AMPICILLIN/SULBACTAM 3 GM 3 GM in SODIUM CHLORIDE 0.9% 100 ML IV ×4 (04:04→20:33)
[2021-04-29] MEDS: LEVOTHYROXINE 125 MCG TABLET PO (05:50)
[2021-04-29 06:54] LABS: Hematocrit 35.2 % (36-46); Hemoglobin 11.5 g/dL (12.0-16.0); Mean Corpuscular HGB Conc 32.6 % (30-36); Mean Corpuscular Hemoglobin 29.4 PG (26-34); Mean Corpuscular Volume 90.3 fL (80-100); Platelet Count 92 X10^3/uL (150-400); Red Cell Distribution Width 17.1 % (11.6-14.8); White Blood Cell Count 2.6 X10^3/uL (4.5-11.0)
[2021-04-29 06:57] LABS: Add Manual Diff / Slide Review YES
[2021-04-29 07:05] LABS: BUN Creatinine Ratio 7.4 (6-22); Blood Urea Nitrogen 4 mg/dL (7-17); Calcium 7.3 mg/dL (8.4-10.2); Carbon Dioxide 29 mmol/L (22-32); Chloride 107 mmol/L (98-107); Estimated Glomerular Filt Rate > 60.0 mL/min (>60); Glucose 94 mg/dL (70-100); HEMOLYSIS < 15 (0-50); Magnesium 1.8 mg/dL (1.6-2.3); Potassium 3.7 mmol/L (3.4-5.1); Sodium 135 mmol/L (137-145)
[2021-04-29 07:43] LABS: Neutrophils Absolute Manual 1768 /uL (3000-5900); Total Cells Counted 50
[2021-04-29 07:44] LABS: Anisocytosis 1+
[2021-04-29] MEDS: THIAMINE 100 MG TABLET PO (09:01)
[2021-04-29] MEDS: FOLIC ACID 1 MG TABLET PO (09:01)
[2021-04-29] MEDS: MULTIVITAMIN 1 TABLET 1 TAB PO (09:01)
[2021-04-29] MEDS: ENOXAPARIN 40 MG/0.4 ML SYRINGE SUBCUT (09:02)
[2021-04-29] MEDS: LOPERAMIDE 2 MG CAPSULE 4 MG PO ×2 (09:06→15:52)
--- NOTE | 2021-04-29 10:58 | CM.DPNOTE ---
DCP: continued: Case received and discussed in Team Rounds. TRUCK HOP Mohini stated she would consult with pt for resources re her desire to treat her alcoholism. Note that pt was in the ER at the end of March for similar concerns and the ER [facility]UCK HOPSundeep Acharya did an extensive assessment. Mohini is updated re same. At that time pt did dc to home setting.
[2021-04-29] MEDS: ONDANSETRON 4 MG/2 ML INJ IV (12:53)
[2021-04-29] MEDS: chlordiazePOXIDE 25 MG CAPSULE PO ×2 (14:17→23:42)
[2021-04-29] MEDS: CALCIUM GLUCONATE 4.65 MEQ in SODIUM CHLORIDE 0.9% 50 ML 180 ML IV (14:18)
--- NOTE | 2021-04-29 14:28 | PM.PN.1 ---
Subjective Subjective Date Patient Seen: 04/29/21 Time Patient Seen: 08:28 Interval history: Today she feels like she is withdrawing from alcohol. She has a headache, sweats, tremulous, and feels anxious. She feels slightly better compared to yesterday. She has no shortness of breath at rest. Exam Vital Signs (past 8 hours): - 04/29/21 07:00 04/29/21 08:00 Temperature 98.5 F Pulse Rate 79 Respiratory Rate 18 Blood Pressure 129/71 Pulse Oximetry 96 96 Oxygen Delivery Method Room Air Oxygen Flow Rate 0 Narrative Exam Narrative: Gen: Alert, oriented, no acute distress, tremulous Resp: Lungs clear bilaterally CV: regular rate and rhythm with no murmurs Abd: soft, non-tender, normal bowel sounds Skin: no lesions or rashes, dry and intact Neuro: Alert and oriented X 4 with no focal deficits. Speech clear and coherent. Extremities: moves all 4 extremities Psyche: Depressed affect. Objective Labs Result Diagrams: 04/29/21 06:30 04/29/21 06:30 Labs: Laboratory Results - last 24 hr 04/29/21 04/29/21 06:30 06:30 WBC 2.6 L D RBC 3.90 L Hgb 11.5 L Hct 35.2 L MCV 90.3 MCH 29.4 MCHC 32.6 RDW 17.1 H Plt Count 92 L Neut % (Auto) Not Reportable Lymph % (Auto) Not Reportable [place] % (Auto) Not Reportable Eos % (Auto) Not Reportable Baso % (Auto) Not Reportable Lymph # (Auto) Not Reportable [place] # (Auto) Not Reportable Baso # (Auto) Not Reportable Total Counted 50 Seg Neutrophils % 54.0 Band Neutrophils % 14.0 H Lymphocytes % (Manual) 18.0 L Atypical Lymphs % 2.0 H Monocytes % (Manual) 12.0 H Neutrophils # (Manual) 1768 L RBC Morphology See below Anisocytosis 1+ H Sodium 135 L Potassium 3.7 Chloride 107 Carbon Dioxide 29 BUN 4 L Creatinine 0.54 Estimated GFR > 60.0 BUN/Creatinine Ratio 7.4 Glucose 94 Calcium 7.3 L Magnesium 1.8 [facility] History Acquired hypothyroidism (~2016) Alcohol abuse Allergic rhinitis Depression (Unknown) Obstructive sleep apnea Peripheral edema (~2010) Restless leg Varicose veins of both lower extremities with complications (~2010) Surgical History History of Vasu-en-Y gastric bypass History of thyroidectomy Status post breast lumpectomy Status post laparoscopic cholecystectomy Family History Sister Age: 57 History of breast cancer Son Drug overdose Social History marital status: household members: family occupational status: employed Smoking Status: Former smoker Tobacco: How many years used: 3 second hand exposure: No alcohol intake: current substance use type: does not use Type(s) of exercise: none Assessment & Plan Assessment & Plan narrative: Ms. Price is a 55W with EtOH abuse who is admitted for alcohol withdrawal, and treatment for a right middle lobe pneumonia presumed to be aspiration 1. Acute alcohol withdrawal and alcohol abuse, present on admission -continue CIWA protocol -switch to standing dose of librium on 04/29 -banana bag today, then oral thiamine, multivitiamin and folic acid tomorrow -sw consult as she wishes to enter inpatient rehab 2. Right middle lobe pneumonia presumed to be aspiration, acute, present on admission She started on IV Unasyn for aspiration coverage for pneumonia 3. Elevated glucose without a diagnosis of diabetes, acute, present on admission Hemoglobin A1c was 5.3, elevated glucose likely secondary to acute alcohol use and physiologic stress 4. Thrombocytopenia -no need for transfusion -monitor daily -possibly secondary to infection or alcohol abuse 5. Hypocalcemia -likely secondary to EtOH abuse -replete calcium on 04/29 VTE prophylaxis: Wells risk score: 0 Enoxaparin 40 mg subQ daily Consults: SW consult and involvement is appreciated. Patient is admitted under inpatient status with expected length of stay greater than 2 midnights due to severity of presenting symptoms, risk of adverse event, and complexity of treatment plan. FEN: saline lock, NPO, CMP and magnesium in the am. Dispo: Discharge to inpatient rehab desired by patient Code Status: Full code as discussed with patient Reyna Trevino, mother and surrogate/POA Quality VTE Deep Vein Thrombosis/Pulmonary Embolism Present on Admission: No
--- NOTE | 2021-04-29 17:00 | DIET.PN ---
Dietary Progress Note RD Note: Pt reports increased etoh consumption first after gastric bypass surgery, and second after of son. Research indicates etoh overuse is increased in post-bypass patients as the etoh more quickly enters bloodstream for a quicker and stronger effect. Often overeating is substituted with other addictive activities further complicating this physiological response. Recommend pt enter bariatric support group whether in person or virtual.
--- NOTE | 2021-04-29 19:51 | DI.RAD.S_ITS ---
PROCEDURE: XR CHEST 1V INDICATIONS: hypotension, dizziness TECHNIQUE: One view of the chest was acquired. COMPARISON: [facility], CR, XR CHEST 2V, 04/27/2021, 21:44. FINDINGS: Surgical changes and devices: None. Lungs and pleura: Lungs are clear. No pleural effusions or pneumothorax. Mediastinum: Mediastinal contours appear normal. Heart size is normal. Bones and chest wall: No suspicious bony lesions. Overlying soft tissues appear unremarkable. IMPRESSION: No acute pulmonary process. Dictated by: Sandie Crystal M.D. on 04/29/2021 at 20:38 Approved by: Sandie Crystal M.D. on 04/29/2021 at 20:38
[2021-04-29] MEDS: VANCOMYCIN 125 MG CAPSULE PO (20:32)
[2021-04-29] MEDS: PRAMIPEXOLE 0.25 MG TABLET 0.5 MG PO (20:32)
[2021-04-29] MEDS: SODIUM CHLORIDE 0.9% 500 ML 1000 ML IV (20:33)
[2021-04-29 20:44] LABS: Add Manual Diff / Slide Review NO; Basophils Absolute Auto 0 /uL (0-100); Basophils Percent Auto 0.3 % (0-2); Eosinophils Absolute Auto 0 /uL (0-450); Hematocrit 38.9 % (36-46); Hemoglobin 12.5 g/dL (12.0-16.0); Lymphocytes Absolute Auto 700 /uL (1100-4500); Lymphocytes Percent Auto 28.9 % (25-40); Mean Corpuscular Hemoglobin 29.1 PG (26-34); Mean Corpuscular Volume 90.9 fL (80-100); Monocytes Absolute Auto 300 /uL (0-900); Neutrophils Absolute Auto 1300 /uL (1500-7000); Neutrophils Percent Auto 56.8 % (50-75); Platelet Count 116 X10^3/uL (150-400); Red Blood Cell Count 4.28 X10^6/uL (4.0-5.2); Red Cell Distribution Width 17.3 % (11.6-14.8); White Blood Cell Count 2.3 X10^3/uL (4.5-11.0)
[2021-04-29 20:55] LABS: Lactate (Lactic Acid) 1.4 mmol/L (0.7-2.1)
[2021-04-29 21:13] LABS: Procalcitonin 0.12 ng/mL (<0.5)
[2021-04-30] VITALS (16 sets, daily range): BP systolic 127–149; BP diastolic 72–100; PULSE 72–97; RESP 16–23; TEMP 36.4–37.1; O2SAT 96–98
[2021-04-30 00:48] LABS: Bacteria Urine None Seen; RBC Urine None Seen (0-5/HPF); WBC Urine None Seen (0-5/HPF)
[2021-04-30 01:08] LABS: Culture Indicated Urine Cult Not Indicated; Squamous Epithelial Cell Urine 0-1 /HPF (0-5/HPF); Urine Comments Microscopic Normal
[2021-04-30] MEDS: VANCOMYCIN 125 MG CAPSULE PO (01:59)
[2021-04-30 02:15] LABS: Clostridium Difficile Tox PCR Negative for C. diff (Negative)
[2021-04-30] MEDS: AMPICILLIN/SULBACTAM 3 GM 3 GM in SODIUM CHLORIDE 0.9% 100 ML IV ×2 (04:13→10:02)
[2021-04-30 06:01] LABS: Hematocrit 32.7 % (36-46); Hemoglobin 10.7 g/dL (12.0-16.0); Mean Corpuscular HGB Conc 32.8 % (30-36); Mean Corpuscular Hemoglobin 29.7 PG (26-34); Mean Corpuscular Volume 90.5 fL (80-100); Platelet Count 95 X10^3/uL (150-400); Red Blood Cell Count 3.62 X10^6/uL (4.0-5.2); Red Cell Distribution Width 17.1 % (11.6-14.8)
[2021-04-30] MEDS: LEVOTHYROXINE 125 MCG TABLET PO (06:02)
[2021-04-30] MEDS: chlordiazePOXIDE 25 MG CAPSULE PO ×3 (06:02→21:19)
[2021-04-30 06:06] LABS: BUN Creatinine Ratio 5.2 (6-22); Blood Urea Nitrogen 3 mg/dL (7-17); Calcium 7.3 mg/dL (8.4-10.2); Carbon Dioxide 28 mmol/L (22-32); Chloride 109 mmol/L (98-107); Estimated Glomerular Filt Rate > 60.0 mL/min (>60); Glucose 82 mg/dL (70-100); HEMOLYSIS < 15 (0-50); Potassium 3.4 mmol/L (3.4-5.1); Sodium 137 mmol/L (137-145)
[2021-04-30] MEDS: CALCIUM GLUCONATE 4.65 MEQ in SODIUM CHLORIDE 0.9% 50 ML 180 ML IV (08:24)
[2021-04-30] MEDS: LOPERAMIDE 2 MG CAPSULE 4 MG PO (08:25)
[2021-04-30] MEDS: ENOXAPARIN 40 MG/0.4 ML SYRINGE SUBCUT (08:25)
[2021-04-30] MEDS: ONDANSETRON 4 MG/2 ML INJ IV ×2 (08:25→16:26)
[2021-04-30 09:29] LABS: Alanine Aminotransferase 18 IU/L (<35); Albumin 2.1 g/dL (3.5-5.0); Albumin Globulin Ratio 0.9 (1.0-2.8); Alkaline Phosphatase 76 U/L (38-126); Aspartate Aminotransferase 36 IU/L (14-36); Bilirubin Total 0.5 mg/dL (0.2-1.3); Bilirubin Unconjugated 0.4 mg/dL (0.0-1.1); Globulin 2.4 g/dL (1.7-4.1); HEMOLYSIS < 15 (0-50); Magnesium 1.7 mg/dL (1.6-2.3); Total Protein 4.5 g/dL (6.3-8.2)
[2021-04-30] MEDS: MULTIVITAMIN 1 TABLET 1 TAB PO (09:40)
[2021-04-30] MEDS: FOLIC ACID 1 MG TABLET PO (09:40)
[2021-04-30] MEDS: THIAMINE 100 MG TABLET PO (09:40)
[2021-04-30] MEDS: levoFLOXacin 750 MG/150 ML PIGGYBACK 100 MG IV (12:34)
--- NOTE | 2021-04-30 14:48 | PC.NURSE ---
Pt reports psycho-social symptoms including tearfulness, difficulty coping due to acute on chronic stress r/t in family, addiction, depression, and financial hardship; pt is asking for help with identifying support systems for addiction; CIWA 3 due to mild tremors, mild anxiety, and mild nausea; IV zofran administered Orthostatic bps with normal limits: lying @135/73, hr 80; sitting @ 132/73, hr 85; standing @127/87, hr 94; Telemetry = SR
[2021-04-30 16:07] LABS: Folate > 20.0 ng/mL (2.76-20.0); Vitamin B12 583 pg/mL (239-931)
[2021-04-30] MEDS: SODIUM CHLORIDE 0.9% FLUSH 10 ML IV (16:26)
[2021-04-30] MEDS: LORazepam 1 MG TABLET PO (16:26)
--- NOTE | 2021-04-30 17:03 | PC.NURSE ---
Addendum entered by Clementina Mendoza R.N. 04/30/21 23:14: seizure pad in place. Librium changed to Q-12hr, per provider orders. Addendum entered by Clementina Mendoza R.N. 04/30/21 18:14: 1815- Pt up to toilet, states dizzy, VS- 125/83, 92. On return to bed VS- 143/80, 89 still dizzy provider aware. Original Note: Pt sitting up in bed, A/O x4, denies SOB, rates pain 2/10, nausea mild at the moment. 98% RA LS clear, bilat LE including feet puffy edema non pitting, possible due to obesity. RAC SL. Tele - 75 NSR occ PVC's. SBA to toilet and uses call light appropriately. Bed alarm on for safety. 1620- C/O nausea 8/10, medicated with zofran 4mg IVP. CIWA score 8, nausea 8/10, tremors moderate, 8/10 anxiety, medicated with Ativan 1mg PO, vital WNL reassess in 1hr.
--- NOTE | 2021-04-30 20:36 | PM.PN.1 ---
Subjective Subjective Date Patient Seen: 04/30/21 Time Patient Seen: 08:36 Interval history: Today she still feels poorly. Shaky, sweaty, dizzy and she thinks she continues to withdraw. No fevers/chills. Yesterday she did have hypotension in the 70s with multiple episodes of diarrhea, but this is improving. Exam Vital Signs (past 8 hours): - 04/30/21 13:00 04/30/21 13:37 04/30/21 15:00 Temperature 98.8 F Pulse Rate 97 H Respiratory Rate 18 Blood Pressure 144/100 H Pulse Oximetry 96 97 98 04/30/21 15:25 04/30/21 17:58 04/30/21 18:12 Temperature 97.7 F Pulse Rate 73 79 92 H Respiratory Rate 20 18 18 Blood Pressure 143/74 H 130/72 128/83 Pulse Oximetry 98 04/30/21 18:16 Temperature 98.3 F Pulse Rate 89 Respiratory Rate 18 Blood Pressure 143/80 H Pulse Oximetry 96 Oxygen Delivery Method Room Air Oxygen Flow Rate 0 Narrative Exam Narrative: Gen: Alert, oriented, no acute distress, tremulous Resp: Lungs clear bilaterally CV: regular rate and rhythm with no murmurs Abd: soft, non-tender, normal bowel sounds Skin: no lesions or rashes, dry and intact Neuro: Alert and oriented X 4 with no focal deficits. Speech clear and coherent. Extremities: moves all 4 extremities Psyche: Depressed affect. Objective Labs Result Diagrams: 04/30/21 05:29 04/30/21 05:29 Labs: Laboratory Results - last 24 hr 04/29/21 04/29/21 04/29/21 20:20 20:20 20:20 WBC 2.3 L RBC 4.28 Hgb 12.5 Hct 38.9 MCV 90.9 MCH 29.1 MCHC 32.0 RDW 17.3 H Plt Count 116 L Neut % (Auto) 56.8 D Lymph % (Auto) 28.9 [place] % (Auto) 14.0 Eos % (Auto) 0.0 L Baso % (Auto) 0.3 Neut # (Auto) 1300 L Lymph # (Auto) 700 L [place] # (Auto) 300 Eos # (Auto) 0 Baso # (Auto) 0 Sodium Potassium Chloride Carbon Dioxide BUN Creatinine Estimated GFR BUN/Creatinine Ratio Glucose Lactate 1.4 Calcium Magnesium Total Bilirubin Conjugated Bilirubin Unconjugated Bilirubin AST ALT Alkaline Phosphatase Total Protein Albumin Globulin Albumin/Globulin Ratio Vitamin B12 Folate Procalcitonin 0.12 Urine RBC Urine WBC Ur Squamous Epith Cells Urine Bacteria Ur Culture Indicated? Micro UA Comment C. difficile Tox (PCR) 04/29/21 04/30/21 04/30/21 22:05 01:00 05:29 WBC 2.0 L RBC 3.62 L Hgb 10.7 L Hct 32.7 L MCV 90.5 MCH 29.7 MCHC 32.8 RDW 17.1 H Plt Count 95 L Neut % (Auto) Lymph % (Auto) [place] % (Auto) Eos % (Auto) Baso % (Auto) Neut # (Auto) Lymph # (Auto) [place] # (Auto) Eos # (Auto) Baso # (Auto) Sodium Potassium Chloride Carbon Dioxide BUN Creatinine Estimated GFR BUN/Creatinine Ratio Glucose Lactate Calcium Magnesium Total Bilirubin Conjugated Bilirubin Unconjugated Bilirubin AST ALT Alkaline Phosphatase Total Protein Albumin Globulin Albumin/Globulin Ratio Vitamin B12 Folate Procalcitonin Urine RBC None seen Urine WBC None seen Ur Squamous Epith Cells 0-1 /hpf Urine Bacteria None seen Ur Culture Indicated? Cult not indicated Micro UA Comment Microscopic normal C. difficile Tox (PCR) Negative for c. diff 04/30/21 04/30/21 04/30/21 05:29 05:29 05:29 WBC RBC Hgb Hct MCV MCH MCHC RDW Plt Count Neut % (Auto) Lymph % (Auto) [place] % (Auto) Eos % (Auto) Baso % (Auto) Neut # (Auto) Lymph # (Auto) [place] # (Auto) Eos # (Auto) Baso # (Auto) Sodium 137 Potassium 3.4 Chloride 109 H Carbon Dioxide 28 BUN 3 L Creatinine 0.58 Estimated GFR > 60.0 BUN/Creatinine Ratio 5.2 L Glucose 82 Lactate Calcium 7.3 L Magnesium 1.7 Total Bilirubin 0.5 Conjugated Bilirubin 0.0 Unconjugated Bilirubin 0.4 AST 36 ALT 18 Alkaline Phosphatase 76 Total Protein 4.5 L Albumin 2.1 L Globulin 2.4 Albumin/Globulin Ratio 0.9 L Vitamin B12 Folate Procalcitonin Urine RBC Urine WBC Ur Squamous Epith Cells Urine Bacteria Ur Culture Indicated? Micro UA Comment C. difficile Tox (PCR) 04/30/21 05:29 WBC RBC Hgb Hct MCV MCH MCHC RDW Plt Count Neut % (Auto) Lymph % (Auto) [place] % (Auto) Eos % (Auto) Baso % (Auto) Neut # (Auto) Lymph # (Auto) [place] # (Auto) Eos # (Auto) Baso # (Auto) Sodium Potassium Chloride Carbon Dioxide BUN Creatinine Estimated GFR BUN/Creatinine Ratio Glucose Lactate Calcium Magnesium Total Bilirubin Conjugated Bilirubin Unconjugated Bilirubin AST ALT Alkaline Phosphatase Total Protein Albumin Globulin Albumin/Globulin Ratio Vitamin B12 583 Folate > 20.0 H Procalcitonin Urine RBC Urine WBC Ur Squamous Epith Cells Urine Bacteria Ur Culture Indicated? Micro UA Comment C. difficile Tox (PCR) [facility] Medical History Acquired hypothyroidism (~2016) Alcohol abuse Allergic rhinitis Depression (Unknown) Obstructive sleep apnea Peripheral edema (~2010) Restless leg Varicose veins of both lower extremities with complications (~2010) Surgical History History of Vasu-en-Y gastric bypass History of thyroidectomy Status post breast lumpectomy Status post laparoscopic cholecystectomy Family History Sister Age: 57 History of breast cancer Son Drug overdose Social History marital status: household members: family occupational status: employed Smoking Status: Former smoker Tobacco: How many years used: 3 second hand exposure: No alcohol intake: current substance use type: does not use Type(s) of exercise: none Assessment & Plan Assessment & Plan narrative: Ms. Price is a 55W with EtOH abuse who is admitted for alcohol withdrawal, and treatment for a right middle lobe pneumonia presumed to be aspiration 1. Acute alcohol withdrawal and alcohol abuse, present on admission -continue CIWA protocol -switch to standing dose of librium on 04/29 initially on librium 25mg TID, will decrease to 25mg BID -continue thiamine, multivitiamin and folic acid - consult as she wishes to enter inpatient rehab 2. Right middle lobe pneumonia presumed to be aspiration, acute, present on admission -continue antibiotics for seven day course with levofloxacin 3. Elevated glucose without a diagnosis of diabetes, acute, present on admission -hemoglobin A1c was 5.3, elevated glucose likely secondary to acute alcohol use and physiologic stress 4. Pancytopenia -no need for transfusion -monitor daily -possibly secondary to infection or alcohol abuse -b12/folate normal 5. Hypocalcemia -likely secondary to EtOH abuse -replete calcium on 04/29 6. Diarrhea with hypotension -improved with IV fluids -c diff negative -loperamide PRN -stool cultures pending Consults: SW consult and involvement is appreciated. Patient is admitted under inpatient status with expected length of stay greater than 2 midnights due to severity of presenting symptoms, risk of adverse event, and complexity of treatment plan. FEN: saline lock, NPO, CMP and magnesium in the am. Code Status: Full code as discussed with patient Reyna Trevino, mother and surrogate/POA Quality VTE Deep Vein Thrombosis/Pulmonary Embolism Present on Admission: No
[2021-04-30] MEDS: PRAMIPEXOLE 0.25 MG TABLET 0.5 MG PO (21:21)
[2021-05-01] VITALS (9 sets, daily range): BP systolic 110–145; BP diastolic 77–93; PULSE 74–90; RESP 13–22; TEMP 36.6–37.4; O2SAT 96–100
[2021-05-01] MEDS: chlordiazePOXIDE 25 MG CAPSULE PO ×3 (00:08→23:32)
[2021-05-01] MEDS: SODIUM CHLORIDE 0.9% FLUSH 10 ML IV (00:08)
[2021-05-01] MEDS: LORazepam 1 MG TABLET 2 MG PO (01:59)
[2021-05-01] MEDS: LOPERAMIDE 2 MG CAPSULE 4 MG PO ×3 (02:18→18:46)
--- NOTE | 2021-05-01 02:30 | PC.NURSE ---
RN answered patients call light and upon entering the room noticed the seizure pad was taken off. Patient refused to have RN replace the pad and stated that she has been through this before and has never had a seizure. At shift change there was only one pad on the bed. Patient also refuses to wear SCDs and non-slip socks but does use call light and does not get out of bed without assistance. Patient was reminded of the fall prevention measures and the importance of the use of seizure pads and non-slip socks, however they were still refused. RN is sitting at nurses station outside of patients room and will monitor.
[2021-05-01 05:31] LABS: Hemoglobin 10.1 g/dL (12.0-16.0); Mean Corpuscular HGB Conc 32.6 % (30-36); Mean Corpuscular Hemoglobin 29.6 PG (26-34); Mean Corpuscular Volume 90.8 fL (80-100); Platelet Count 103 X10^3/uL (150-400); Red Blood Cell Count 3.41 X10^6/uL (4.0-5.2); Red Cell Distribution Width 16.8 % (11.6-14.8); White Blood Cell Count 2.1 X10^3/uL (4.5-11.0)
[2021-05-01 05:45] LABS: BUN Creatinine Ratio 9.1 (6-22); Blood Urea Nitrogen 5 mg/dL (7-17); Calcium 7.7 mg/dL (8.4-10.2); Carbon Dioxide 27 mmol/L (22-32); Chloride 110 mmol/L (98-107); Estimated Glomerular Filt Rate > 60.0 mL/min (>60); Glucose 84 mg/dL (70-100); HEMOLYSIS < 15 (0-50); Magnesium 1.6 mg/dL (1.6-2.3); Potassium 3.3 mmol/L (3.4-5.1); Sodium 138 mmol/L (137-145)
[2021-05-01 05:48] LABS: Anisocytosis 1+; Neutrophils Absolute Manual 735 /uL (3000-5900); Total Cells Counted 100
[2021-05-01] MEDS: LEVOTHYROXINE 125 MCG TABLET PO (07:59)
[2021-05-01] MEDS: ENOXAPARIN 40 MG/0.4 ML SYRINGE SUBCUT (08:00)
[2021-05-01] MEDS: THIAMINE 100 MG TABLET PO (08:29)
[2021-05-01] MEDS: FOLIC ACID 1 MG TABLET PO (08:29)
[2021-05-01] MEDS: MULTIVITAMIN 1 TABLET 1 TAB PO (08:29)
--- NOTE | 2021-05-01 09:05 | DI.ECHO.S_ITS ---
[facility] +---------+ : : [address] : [place] [address] : : : : [id number] : : : : Phone: [phone]+ Echocardiogram Report + + :Name: RADHA SANDOVAL Study Date: 05/01/2021 Height: 62 in : :[facility] ReadingLocation: Weight: 231 lb : : Gender: Female BSA: 2.0 m2 : :: 1965 Age: 55 yrs BP: 149/92 mmHg: :Reason For Study: Light-Headedness/Pre-Syncope : :Ordering Physician: Vineet : :Hospitalist Performed By: Kelsey Lynn : :Referring: GABY MCGILL : + + Interpretation Summary The left ventricle is normal in size. The ejection fraction is estimated to be 60-65%. There has been no significant change in LV EF since the previous exam. The right ventricle is normal in size and function. There is mild to moderate mitral regurgitation. Compared to the prior echo study, there has been no change in the severity of mitral regurgitation. The IVC is dilated (diameter is greater than 2.1 cm) yet it collapses greater than 50% with a sniff. This suggests a right atrial pressure of 8 mm Hg. Procedure: A two-dimensional transthoracic echocardiogram with color flow and Doppler was performed. The study quality was technically adequate. Comparison is made with the echocardiogram of 10/15/2020. The patient was in normal sinus rhythm during the exam. Left Ventricle: The left ventricle is normal in size. Left ventricular wall thickness is at the upper limits of normal. There is no ventricular septal defect visualized. There is no thrombus. The ejection fraction is estimated to be 60-65%. There has been no significant change since the previous exam. There are no focal wall motion abnormalities. Diastolic parameters suggest a relaxation abnormality of the left ventricle, consistent with probable normal filling pressures. Right Ventricle: The right ventricle is normal in size and function. Atria: The left atrium is mildly dilated. The left atrium has mildly decreased in size since the prior echo exam. Right atrial size is normal. There is no Doppler evidence for an interatrial shunt. The interatrial septum bows toward right atrium consistent with elevated left atrial pressure. Mitral Valve: There is mild mitral annular calcification. The mitral valve chordae are thickened and/or calcified. There is mild to moderate mitral regurgitation. Compared to the prior echo study, there has been no change in the severity of mitral regurgitation. Aortic Valve: The aortic valve is grossly normal. The aortic valve is not well visualized. There is no aortic valve stenosis. No aortic regurgitation is present. Tricuspid Valve: The tricuspid valve is normal. Pulmonary artery pressures cannot be estimated because of the lack of a measurable TR jet velocity. Pulmonic Valve: The pulmonic valve is not well visualized. Great Vessels: The aortic root is normal size. The ascending aorta is at the upper limits of normal in size. The IVC is dilated (diameter is greater than 2.1 cm) yet it collapses greater than 50% with a sniff. This suggests a right atrial pressure of 8 mm Hg. Pericardium/ Pleura There is no pericardial effusion. MMode/2D Measurements & Calculations LVIDd: 4.9 cm LVOT diam: 2.1 cm LVIDs: 3.6 cm Ao root diam: 3.5 cm FS: 25.6 % asc Aorta Diam: 3.4 cm EPSS: 0.55 cm IVSd: 0.99 cm LVPWd: 1.0 cm LV au. diameter/BSA (cm/m^2): 2.4 LV sys. diameter/BSA (cm/m^2): 1.8 LA A2 area: 22.4 cm2 RA long axis: 5.7 cm LA A4 area: 26.8 cm2 RA area: 16.0 cm2 LA length (vol): 6.4 cm RA vol: 38.3 ml LA vol: 79.2 ml RA : 18.9 ml/m2 LA vol index: 39.0 ml/m2 IVC diam: 2.2 cm TAPSE: 2.4 cm Doppler Measurements & Calculations Ao V2 max: 199.7 cm/sec LVOT Max Cesar: 156.7 cm/sec Ao V2 mean: 136.2 cm/sec LV V1 max P.8 mmHg Ao max P.9 mmHg LV V1 VTI: 29.9 cm Ao mean P.3 mmHg DEBORAH(I,D): 2.8 cm2 Ao V2 VTI: 37.1 cm DEBORAH(V,D): 2.8 cm2 sev ratio: 0.81 DEBORAH indexed to BSA (cm^2/m^2): 1.4 MV E max cesar: 77.4 cm/sec PA V2 max: 83.3 cm/sec MV A max cesar: 110.0 cm/sec PA V2 mean: 59.7 cm/sec MV E/A: 0.70 PA mean P.5 mmHg Med Peak E' Cesar: 6.4 cm/sec PA pr(Accel): 61.0 mmHg E/E' med: 12.0 Lat Peak E' Cesar: 12.3 cm/sec E/E' lat: 6.3 E/e' average: 9.1 MV dec time: 0.35 sec MR ERO: 0.05 cm2 MR PISA: 0.80 cm2 SV(LVOT): 105.1 ml MR flow rate: 29.5 cm3/sec MR PISA radius: 0.36 cm Reading Physician:05:04 PM
[2021-05-01] MEDS: levoFLOXacin 750 MG/150 ML PIGGYBACK 100 MG IV (11:14)
--- NOTE | 2021-05-01 12:05 | PC.NURSE ---
Pt c/o difficulty with balance/weakness; CIWA positive for mild tremors; pt very somnolent this morning s/p ativan at night; denies nausea, pain, SOB; ls clear; IV abx infusing; RA; PT ordered due to pt's c/o balance problems
[2021-05-01] MEDS: POTASSIUM CHLORIDE 20 MEQ TAB 40 MEQ PO (13:10)
--- NOTE | 2021-05-01 13:40 | PT.IIE ---
Current Diagnoses Pneumonitis due to inhalation of food and vomit (04/28/21) Surgical History (Last Reviewed 04/28/21 @ 07:29 by SOLEDAD Epps) History of Vasu-en-Y gastric bypass History of thyroidectomy Status post breast lumpectomy Status post laparoscopic cholecystectomy Medical History (Last Reviewed 04/28/21 @ 07:29 by SOLEDAD Epps) Acquired hypothyroidism (~2016) Alcohol abuse Allergic rhinitis Depression (Unknown) Obstructive sleep apnea Peripheral edema (~2010) Restless leg Varicose veins of both lower extremities with complications (~2010) Physical Therapy Inpatient Evaluation/Re-Eval M1 PT/OT-IP Prior Functional Status Start: 05/01/21 11:05 Freq: NEEDED Status: Active Protocol: Document 05/01/21 13:40 AW (Rec: 05/01/21 14:27 AW [id number]) Medical Review Prior Functional Status Medical History Reviewed Yes Communication Pt is able to make her needs known Mobility and Gait Independent without AD. Pt reports able to walk ~10 blocks when feeling well. Activities of Daily Living and IADL's Independent. Prior Functional Level (Other details) Pt reports bouts of dizziness in the past but specifically denies any room-spinning sensation, instead stating it felt more floaty and dissociative. She has occasionally had her ears flushed at primary care due to feeling of fullness but she is not having that sensation now. Social History Household Members family Living Arrangements Apartment/Condo Number of Floors (Floors) Two Floors Number of Stairs To Enter/Railing? Level entrance. Pt has 14 steps up to the bedroom level with narrow bilateral rails. Home Environment Standard Height Toilet,Tub/ Shower Employment Status Unemployed Additional Social History Comment Pt lives with her 17 yo son, Pradeep. Another son in November 2020 per prior FIELD MANAGER notes. M2 PT-IP Current Condition Start: 05/01/21 11:05 Freq: NEEDED Status: Active Protocol: Document 05/01/21 13:40 AW (Rec: 05/01/21 14:27 AW [id number]) Physical Therapy Current Condition Current Condition Evaluation Date 05/01/21 Treatment Diagnosis alcohol withdrawal, pneumonia, dizziness, impaired balance and gait Onset Date 04/29/21 Precautions Other Precautions seizure precautions per CIWA protocol M3 PT-IP Subjective Start: 05/01/21 11:05 Freq: NEEDED Status: Active Protocol: Document 05/01/21 13:40 AW (Rec: 05/01/21 14:27 AW [id number]) Subjective Physical Therapy Visit Type Type Initial Evaluation Visit Start Time 13:10 Visit Stop Time 13:40 Total Visit Minutes 30 Physical Therapy Visit Comments Patient Comments Pt is willing to participate with PT Therapy Pain Assessment Pain When Pain Assessed During Mobility Pain Present Pain Present Denied Pain M4 PT-IP Mobility and Gait Start: 05/01/21 11:05 Freq: NEEDED Status: Active Protocol: Document 05/01/21 13:40 AW (Rec: 05/01/21 14:27 AW [id number]) PT-Bed Mobility Assessment Supine to Sit Supine to Sit Independent Sit to Supine Sit to Supine Independent PT-Transfer Assessment Sit to and From Stand Sit to and from Stand Standby Assistance Equipment Transfer Assistive Device Gait Belt Transfers Transfer Destination Bed Transfer Technique Stand Step Pivot Transfer Ability Level of Assist Standby Assistance Comments Mobility Comments Pt was lying in bed as PT arrived. She sat up without assist and stood SBA due to initial unsteadiness and leaning posteriorly on the bed . She stepped away from the bed for static balance assessment and then agreed to ambulate the halls. She walked 100 feet without AD SBA but frequently reached out to contact mujica and furniture along the way. 4-item DGI was admininistered with pt scoring 8/12 with single points deducted for gait level surface (0.42 m/s), change in gait speed, horizontal and vertical head turns. On return to the room, pt agreed to try FWW. She ambulated 30 feet with FWW, demonstrating improved stability and reporting increased confidence . Pt returned to bedside and transitioned back to supine without assist. Gait Assessment Gait Gait Assistance Required: Standby Assistance Distance (Feet) 100 Assistive Devices Assistive Device None,Gait Belt,Front Wheeled Walker Gait Deviations General Gait Pattern Decreased Stride Length, Decreased Feet Clearance Factors Limiting Gait Function Factors Limiting Gait Function Decreased Activity Tolerance, Decreased Strength,Poor Balance Comments Gait Comments Pt was unsteady without AD. With FWW, she was more confident and had improved steadiness. Stair Climbing Assessment Comments Stair Climbing Comments Not assessed. PT-Balance Assessment Sitting Balance and Reactions Static Sitting Balance Ability Normal Dynamic Sitting Balance Ability Good Standing Balance and Reactions Static Standing Balance Ability Fair Dynamic Standing Balance Ability Fair Device Used no AD Balance Tests Single Limb Standing <2 sec B LE Romberg increased sway NBOS EO and EC Tandem Standing unable Functional Assessments Functional Tests Dynamic Gait Index 4-item DGI: 8/12 M5 PT-IP Objective Assessments Start: 05/01/21 11:05 Freq: NEEDED Status: Active Protocol: Document 05/01/21 13:40 AW (Rec: 05/01/21 14:27 AW [id number]) Orientation Orientation/Cognition Level of Alertness Alert Orientation Name,Day of Week,Place, Situation Language Function Ability No Deficits Noted Safety Awareness Understands Safety Issues Memory Description No Deficits Noted Gross Range of Motion Upper Extremity ROM Assessment Within Functional Limits Lower Extremity ROM Assessment Within Functional Limits Strength Lower Extremity Strength Hip 4+/5 except extension and adduction 4/5 Knee 4+/5 extension; 4/5 flexion Ankle 4+/5 Sensation Assessment Sensation Gross Sensation WNL Muscle Tone Muscle Tone WNL No Comments Muscle Tone Comments Pt has BUE tremors Other Assessments Other Other Assessments Occulomotor and vestibular screenings were grossly normal . Orthostatic BPs were WNL and documented separately. M6 PT-IP Treatment Start: 05/01/21 11:05 Freq: NEEDED Status: Active Protocol: Document 05/01/21 13:40 AW (Rec: 05/01/21 14:27 AW [id number]) Physical Therapy Treatment Education Education Provided Safety Other Treatments Other Treatment Performed Educated pt on balance systems input and integration. M7 PT-IP Assessment and Plan Start: 05/01/21 11:05 Freq: NEEDED Status: Active Protocol: Document 05/01/21 13:40 AW (Rec: 05/01/21 14:27 AW [id number]) PT Summary Assessment and Plan Potential Rehabilitation Potential Good Status of Condition at Evaluation Evolving Summary Impairments Strength,Balance,Tone,Gait Assessment Summary Minnie is a 55 yo woman admitted with alcohol withdrawal and pneumonia and complaints of balance disturbance. She is independent with all mobility at baseline. On evaluation, occulomotor and vestibular screenings are grossly normal. Pt is unsteady in initial standing and gait without assistive device. Gait speed ( 0.4 m/s) suggests limited community ambulation. 4-item DGI score of 8/12 indicates impaired dynamic balance and increased falls risk. Pt would benefit from continued acute physical therapy to address balance impairments. Continued rehab on a subacute or outpatient basis is also indicated. Pt agrees to use FWW in the hospital as needed to improve stability. Goals Gait Goal Independent Gait Distance 300 Other Goals - up/down 14 steps with narrow B rails IND Days to Meet Goals 3 Frequency of Treatment Frequency Of Treatment Once a Day Treatment Plan Physical Therapy Treatment Plan Transfer Training,Gait Training,Therapeutic Exercise, Balance Retraining,Discharge Planning,Neuromuscular Re-ed, Coordination Retraining Other Recommendations and Next Treatment standing balance interventions Focus ; gait training for dynamic balance Precautions Other Precautions seizure precautions per CIWA protocol Recommendations To Nursing Amount of Assist Needed Standby Assistance Discharge Recommendations PT Discharge Recommendations Home with Assistance, Outpatient PT Transportation Needs at Discharge Private Vehicle
--- NOTE | 2021-05-01 15:18 | CM.SWNOTE ---
PATCH SANDER Note This PATCH SANDER requested to assess needs of this 55 yo female, admitted with EtOH abuse who is admitted for alcohol withdrawal, and treatment for a right middle lobe pneumonia presumed to be aspiration, patient expected to DC home Sunday05.02.21 Met w/patient yesterday and today to review goals and plans for DC Patient tearful throughout our conversation yesterday, explained that she feels shame about getting drunk nightly, especially when her 17 yo finds beer cans around her room; states she often picks up approx 3-6 tall boys every evening which patient admits is a lot d/t her gastric bypass surgery, alcohol has a stronger effect. Patient recalls a very difficult past few years during which her son because of Fentanyl, of her best friend, a break up with her bf, and loss of her job due to my depression and drinking. Patient states she has to make a change now or I'll lose everything. Patient felt her treatment stay at [facility] in [place] was very helpful, she is motivated to stay sober, and would like to try another inpatient stay. This PATCH SANDER suggested connection w/ [facility] to see if patient could get a scheduled D/A assessment to assist in bed placement at in inpatient treatment facility? Patient agreeable. Patient also considering intensive outpatient option through [facility], states she called them in the past, they returned call and she didn't follow through. Placed call to Maribell at [facility], P# [phone], she can complete this assessment at patient's bedside Sunday05.02.21 at 1115, as long as intake is started (patient information given) Sunday morning to the nuclear officer, office opens Sunday at 0830. Updated patient who remains agreeable to D/A assessment w/ Maribell at [facility]. DC home via family auto expected after this assessment, as long as patient is medically stable. MITESH Carter
--- NOTE | 2021-05-01 20:12 | PM.PN.1 ---
Subjective Subjective Date Patient Seen: 05/01/21 Time Patient Seen: 08:12 Interval history: She does think she feels slightly better. She continued to score on CIWA though. She feels dizzy and imbalanced when walking. No other complaints Exam Vital Signs (past 8 hours): - 05/01/21 13:40 05/01/21 15:40 05/01/21 19:12 Temperature 98.5 F 97.8 F Pulse Rate 78 83 Pulse Rate [Orthostatic Lying] 88 Pulse Rate [Orthostatic Sitting] 85 Pulse Rate [Orthostatic Standing] 90 Respiratory Rate 18 18 Blood Pressure 128/93 H 110/77 Blood Pressure [Orthostatic Lying] 132/89 Blood Pressure [Orthostatic Sitting] 135/92 H Blood Pressure [Orthostatic Standing] 125/87 Pulse Oximetry 97 97 Oxygen Delivery Method Room Air Oxygen Flow Rate 0 Narrative Exam Narrative: Gen: Alert, oriented, no acute distress, tremulous Resp: Lungs clear bilaterally CV: regular rate and rhythm with no murmurs Abd: soft, non-tender, normal bowel sounds Skin: no lesions or rashes, dry and intact Neuro: Alert and oriented X 4 with no focal deficits. Speech clear and coherent. Extremities: moves all 4 extremities Psyche: Depressed affect. Objective Labs Result Diagrams: 05/01/21 05:04 05/01/21 05:04 Labs: Laboratory Results - last 24 hr 05/01/21 05/01/21 05:04 05:04 WBC 2.1 L RBC 3.41 L Hgb 10.1 L Hct 31.0 L MCV 90.8 MCH 29.6 MCHC 32.6 RDW 16.8 H Plt Count 103 L Total Counted 100 Seg Neutrophils % 34.0 L Band Neutrophils % 1.0 L Lymphocytes % (Manual) 58.0 H Atypical Lymphs % 1.0 H Monocytes % (Manual) 6.0 Neutrophils # (Manual) 735 L RBC Morphology See below Anisocytosis 1+ H Sodium 138 Potassium 3.3 L Chloride 110 H Carbon Dioxide 27 BUN 5 L Creatinine 0.55 Estimated GFR > 60.0 BUN/Creatinine Ratio 9.1 Glucose 84 Calcium 7.7 L Magnesium 1.6 PFSH Medical History Acquired hypothyroidism (~2016) Alcohol abuse Allergic rhinitis Depression (Unknown) Obstructive sleep apnea Peripheral edema (~2010) Restless leg Varicose veins of both lower extremities with complications (~2010) Surgical History History of Vasu-en-Y gastric bypass History of thyroidectomy Status post breast lumpectomy Status post laparoscopic cholecystectomy Family History Sister Age: 57 History of breast cancer Son Drug overdose Social History marital status: household members: family occupational status: employed Smoking Status: Former smoker Tobacco: How many years used: 3 second hand exposure: No alcohol intake: current substance use type: does not use Type(s) of exercise: none Assessment & Plan Assessment & Plan narrative: Ms. Price is a 55W with EtOH abuse who is admitted for alcohol withdrawal, and treatment for a right middle lobe pneumonia presumed to be aspiration 1. Acute alcohol withdrawal and alcohol abuse, present on admission -continue CIWA protocol -switch to standing dose of librium on 04/29 initially on librium 25mg TID, will decrease to 25mg BID -continue thiamine, multivitiamin and folic acid - consult as she wishes to enter inpatient rehab 2. Right middle lobe pneumonia presumed to be aspiration, acute, present on admission -continue antibiotics for seven day course with levofloxacin, day 7 will be 05/04 -no respiratory symptoms currently, so may be able to stop after 5 day course 3. Elevated glucose without a diagnosis of diabetes, acute, present on admission -hemoglobin A1c was 5.3, elevated glucose likely secondary to acute alcohol use and physiologic stress 4. Pancytopenia -no need for transfusion -monitor daily -possibly secondary to infection or alcohol abuse -b12/folate normal 5. Hypocalcemia -likely secondary to EtOH abuse -calcium corrected for albumin is normal 6. Diarrhea with hypotension (hypotension on 04/29) -improved with IV fluids -c diff negative -loperamide PRN -stool cultures pending, but negative to date Code Status: Full code as discussed with patient Reyna Trveino, mother and surrogate/POA Quality VTE Deep Vein Thrombosis/Pulmonary Embolism Present on Admission: No
[2021-05-01] MEDS: PRAMIPEXOLE 0.25 MG TABLET 0.5 MG PO (20:26)
[2021-05-02 00:03] VITALS: BP 141/78; PULSE 78; RESP 20; TEMP 36.4; O2SAT 100
[2021-05-02 04:00] VITALS: BP 151/97; PULSE 75; RESP 14; TEMP 36.2; O2SAT 95
[2021-05-02 06:23] LABS: Hemoglobin 9.9 g/dL (12.0-16.0); Mean Corpuscular HGB Conc 32.1 % (30-36); Mean Corpuscular Hemoglobin 29.6 PG (26-34); Platelet Count 113 X10^3/uL (150-400); Red Blood Cell Count 3.37 X10^6/uL (4.0-5.2); Red Cell Distribution Width 17.6 % (11.6-14.8); White Blood Cell Count 2.3 X10^3/uL (4.5-11.0)
[2021-05-02 06:24] LABS: BUN Creatinine Ratio 6.8 (6-22); Blood Urea Nitrogen 4 mg/dL (7-17); Calcium 8.1 mg/dL (8.4-10.2); Carbon Dioxide 27 mmol/L (22-32); Chloride 111 mmol/L (98-107); Estimated Glomerular Filt Rate > 60.0 mL/min (>60); Glucose 90 mg/dL (70-100); HEMOLYSIS < 15 (0-50); Magnesium 1.6 mg/dL (1.6-2.3); Potassium 3.6 mmol/L (3.4-5.1); Sodium 140 mmol/L (137-145)
[2021-05-02 07:45] LABS: Anisocytosis 1+; Neutrophils Absolute Manual 736 /uL (3000-5900); Total Cells Counted 50
[2021-05-02 08:00] VITALS: BP 141/91; PULSE 69; RESP 18; TEMP 36.5; O2SAT 95; O2SAT 99
[2021-05-02] MEDS: ENOXAPARIN 40 MG/0.4 ML SYRINGE SUBCUT (08:12)
[2021-05-02] MEDS: THIAMINE 100 MG TABLET PO (08:12)
[2021-05-02] MEDS: MULTIVITAMIN 1 TABLET 1 TAB PO (08:12)
[2021-05-02] MEDS: FOLIC ACID 1 MG TABLET PO (08:12)
[2021-05-02] MEDS: LOPERAMIDE 2 MG CAPSULE 4 MG PO (08:48)
[2021-05-02] MEDS: LORazepam 1 MG TABLET PO (08:50)
--- NOTE | 2021-05-02 08:59 | CM.DPC ---
Addendum entered by Kimberlee Brenner 05/02/21 14:34: Patient undergoing assessment with [facility] this afternoon. Once completed patient will be discharging from [facility] Original Note: DCP/continued: Reviewed chart. Per notes patient has planned assessment with [facility] today. RELATIONSHIP COUNSELOR met with patient to confirm plan. Patient reports that she is most likely going home today. Patient in agreement to have assessment for services with [facility] if it can be arranged prior to d/c. RAYMUNDO signed by patient for CM team to discuss case with [facility]. Placed call to [facility], spoke with Maribell she reports that she can be at [facility] today by noon. RELATIONSHIP COUNSELOR will notify patient. RN updated and PT plans to see patient before noon. P: Anticipate home today. MITESH Evans
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
--- NOTE | 2021-05-02 09:32 | PT.IPTN ---
Current Diagnoses Pneumonitis due to inhalation of food and vomit (04/28/21) Physical Therapy Treatment Note M2 PT-IP Current Condition Start: 05/01/21 11:05 Freq: NEEDED Status: Active Protocol: Document 05/01/21 13:40 AW (Rec: 05/01/21 14:27 AW [id number]) Physical Therapy Current Condition Current Condition Evaluation Date 05/01/21 Treatment Diagnosis alcohol withdrawal, pneumonia, dizziness, impaired balance and gait Onset Date 04/29/21 Precautions Other Precautions seizure precautions per CIWA protocol M3 PT-IP Subjective Start: 05/01/21 11:05 Freq: NEEDED Status: Active Protocol: Document 05/02/21 09:14 LJ (Rec: 05/02/21 09:32 LJ [id number]) Subjective Physical Therapy Visit Type Type Treatment Note Visit Start Time 08:48 Visit Stop Time 09:14 Total Visit Minutes 26 Physical Therapy Visit Comments Patient Comments Pt is willing to participate with PT Therapy Pain Assessment Pain When Pain Assessed During Mobility Pain Present Pain Present Denied Pain M4 PT-IP Mobility and Gait Start: 05/01/21 11:05 Freq: NEEDED Status: Active Protocol: Document 05/02/21 09:14 LJ (Rec: 05/02/21 09:32 LJ [id number]) PT-Transfer Assessment Sit to and From Stand Sit to and from Stand Standby Assistance Equipment Transfer Assistive Device Gait Belt,Front Wheeled Walker Transfers Transfer Destination Bed Transfer Technique Stand Step Pivot Transfer Ability Level of Assist Standby Assistance Comments Mobility Comments Pt sitting on side of bed putting her shoes on. Pt SBA for all mobility and transfers . Pt ambulated in [facility]~300' to trial stairs. She uses the FWW properly with cues to lower her shoulders. Pt successfully trialed stairs then walked without the FWW for roughly 30' reaching out to the railing several times. Pt given the FWW to continue to her room ~100' away. She did not have any LOB but stated she felt wobbly and fearful she might fall. She stated she would like to have a FWW for community ambulation so that she could be more mobile and increase her strength. She stated [facility] Gait Assessment Gait Gait Assistance Required: Standby Assistance Distance (Feet) 300 Assistive Devices Assistive Device None,Gait Belt,Front Wheeled Walker Gait Deviations General Gait Pattern Within Normal Limits Factors Limiting Gait Function Factors Limiting Gait Function Decreased Activity Tolerance, Decreased Strength,Poor Balance Comments Gait Comments Pt was unsteady without AD. With FWW, she was more confident and had improved steadiness. Her ambulation with the FWW was very good and it recommended that she ccontinue to use it for community ambulation. She states that her apartment is very small and she can reach out to furniture for balance assist. Stair Climbing Assessment Evaluation Level of Assist On Stairs Standby Assistance Devices Stair Climbing Assistive Devices Left Railing,Right Railing Technique/Endurance Stair Climbing Direction Ascend and Descend Stair Climbing Technique Step to Step Number of Steps Climbed 3 Stair Climbing Set # Repetitions (reps) 2 M5 PT-IP Objective Assessments Start: 05/01/21 11:05 Freq: NEEDED Status: Active Protocol: Document 05/01/21 13:40 AW (Rec: 05/01/21 14:27 AW [id number]) Orientation Orientation/Cognition Level of Alertness Alert Orientation Name,Day of Week,Place, Situation Language Function Ability No Deficits Noted Safety Awareness Understands Safety Issues Memory Description No Deficits Noted Gross Range of Motion Upper Extremity ROM Assessment Within Functional Limits Lower Extremity ROM Assessment Within Functional Limits Strength Lower Extremity Strength Hip 4+/5 except extension and adduction 4/5 Knee 4+/5 extension; 4/5 flexion Ankle 4+/5 Sensation Assessment Sensation Gross Sensation WNL Muscle Tone Muscle Tone WNL No Comments Muscle Tone Comments Pt has BUE tremors Other Assessments Other Other Assessments Occulomotor and vestibular screenings were grossly normal . Orthostatic BPs were WNL and documented separately. M6 PT-IP Treatment Start: 05/01/21 11:05 Freq: NEEDED Status: Active Protocol: Document 05/02/21 09:14 LJ (Rec: 05/02/21 09:32 LJ [id number]) Physical Therapy Treatment Education Education Provided Safety M7 PT-IP Assessment and Plan Start: 05/01/21 11:05 Freq: NEEDED Status: Active Protocol: Document 05/02/21 09:14 LJ (Rec: 05/02/21 09:32 LJ [id number]) PT Summary Assessment and Plan Potential Rehabilitation Potential Good Status of Condition at Evaluation Evolving Summary Impairments Strength,Balance Assessment Summary Pt has improved in gait mechanics using a FWW and feels confident using it. Without the FWW she is unsteady and fearful of falling. She states that she thinks there is something wrong with her ears affecting her balance. She also states she has a son and friends who can assist her at home. JOURNEY LINEMAN recommends she attend OP rehab to improve strength and mobility. Goals Gait Goal Independent Gait Distance 300 Other Goals - up/down 14 steps with narrow B rails IND Days to Meet Goals 3 Frequency of Treatment Frequency Of Treatment Once a Day Treatment Plan Physical Therapy Treatment Plan Transfer Training,Gait Training,Therapeutic Exercise, Balance Retraining,Discharge Planning,Neuromuscular Re-ed, Coordination Retraining Other Recommendations and Next Treatment standing balance interventions Focus ; gait training for dynamic balance Precautions Other Precautions seizure precautions per CIWA protocol Recommendations To Nursing Amount of Assist Needed Standby Assistance Discharge Recommendations PT Discharge Recommendations Home with Assistance, Outpatient PT Transportation Needs at Discharge Private Vehicle
[2021-05-02 12:00] VITALS: BP 130/78; PULSE 70; RESP 17; TEMP 36.6; O2SAT 99
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
== END 2021-05-02 15:35 | disposition home or self-care (01) | DRG 896 ==
LOC: ED 04-28 02:06 → AC 04-28 02:13
PROVIDERS: Internal Medicine; Admitting Provider Nurse Practitioner Family; Emergency Provider Emergency Medicine; PCP Physician Assistant; Referring Provider Emergency Medicine; Visit Provider Nurse Practitioner Family
DX: F10.139 Alcohol abuse with withdrawal, unspecified (principal); J69.0 Pneumonitis due to inhalation of food and vomit; Z68.41 Body mass index [BMI] 40.0-44.9, adult; D61.818 Other pancytopenia; E66.01 Morbid (severe) obesity due to excess calories; R73.9 Hyperglycemia, unspecified; F32.9 Major depressive disorder, single episode, unspecified; G25.81 Restless legs syndrome; R19.7 Diarrhea, unspecified; I95.9 Hypotension, unspecified; E83.51 Hypocalcemia; E03.9 Hypothyroidism, unspecified; Z20.822 Contact with and (suspected) exposure to COVID-19; Z87.891 Personal history of nicotine dependence; Y90.6 Blood alcohol level of 120-199 mg/100 ml; Z98.0 Intestinal bypass and anastomosis status; Z98.84 Bariatric surgery status; Z71.3 Dietary counseling and surveillance
CPT/HCPCS: 36415; 71045; 71046; 80048; 80053; 80076; 80320; 81003; 81015; 82607; 82746; 83036; 83605; 83735; 84145; 84484; 85007; 85025; 85027; 87040; 87045; 87493; 87635; 87899; 93005; 93010; 93306; 96361; 96365; 96367; 96375; 97116; 97162; 99284; C9803; J0295; J0610; J0696; J1650; J1956; J2060; J2405; J3475

== ENCOUNTER 2021-05-09 11:44 | Emergency (ER) | payer OTHER, MEDICAID, SELFPAY ==
[2021-04-28 02:35] VITALS: BMI 41.9
[2021-05-09 11:55] VITALS: BP 161/91; PULSE 95; RESP 16; TEMP 37.3; O2SAT 97; BMI 40.2
[2021-05-09] MEDS: SODIUM CHLORIDE 0.9% 1,000 ML 1000 ML IV (12:15)
[2021-05-09 12:19] LABS: Add Manual Diff / Slide Review NO; Basophils Absolute Auto 0 /uL (0-100); Basophils Percent Auto 0.4 % (0-2); Eosinophils Absolute Auto 0 /uL (0-450); Hematocrit 40.5 % (36-46); Hemoglobin 13.1 g/dL (12.0-16.0); Lymphocytes Absolute Auto 1200 /uL (1100-4500); Lymphocytes Percent Auto 21.4 % (25-40); Mean Corpuscular HGB Conc 32.3 % (30-36); Mean Corpuscular Hemoglobin 29.3 PG (26-34); Mean Corpuscular Volume 90.7 fL (80-100); Monocytes Absolute Auto 400 /uL (0-900); Neutrophils Absolute Auto 3900 /uL (1500-7000); Neutrophils Percent Auto 71.2 % (50-75); Platelet Count 279 X10^3/uL (150-400); Red Blood Cell Count 4.47 X10^6/uL (4.0-5.2); Red Cell Distribution Width 18.1 % (11.6-14.8); White Blood Cell Count 5.5 X10^3/uL (4.5-11.0)
[2021-05-09 12:27] VITALS: PULSE 81; RESP 16; O2SAT 98
[2021-05-09 12:28] LABS: Alanine Aminotransferase 31 IU/L (<35); Albumin 3.8 g/dL (3.5-5.0); Albumin Globulin Ratio 1.2 (1.0-2.8); Alkaline Phosphatase 102 U/L (38-126); Aspartate Aminotransferase 40 IU/L (14-36); BUN Creatinine Ratio 9.1 (6-22); Bilirubin Total 0.4 mg/dL (0.2-1.3); Bilirubin Unconjugated 0.1 mg/dL (0.0-1.1); Blood Urea Nitrogen 6 mg/dL (7-17); Calcium 8.3 mg/dL (8.4-10.2); Carbon Dioxide 24 mmol/L (22-32); Chloride 105 mmol/L (98-107); Estimated Glomerular Filt Rate > 60.0 mL/min (>60); Ethanol (ETOH) 239 mg/dL; Globulin 3.3 g/dL (1.7-4.1); Glucose 109 mg/dL (70-100); HEMOLYSIS < 15 (0-50); Magnesium 1.7 mg/dL (1.6-2.3); Phosphorous 3.5 mg/dL (2.5-4.5); Potassium 4.3 mmol/L (3.4-5.1); Sodium 141 mmol/L (137-145); Total Protein 7.1 g/dL (6.3-8.2)
[2021-05-09 12:45] LABS: COVID19 -Nasal RAPID Negative (Negative)
[2021-05-09 12:55] LABS: Lipase 85 U/L (23-300)
--- NOTE | 2021-05-09 13:05 | ED_ITS ---
HPI - Alcohol <RIO Gutierrez-BC - Last Filed: 05/09/21 17:13> General Chief Complaint: Toxicology Problem Stated Complaint: detox Time Seen by Provider: 05/09/21 12:32 Source: patient Mode of arrival: Ambulatory Limitations: no limitations History of Present Illness HPI narrative: The patient is a 55-year-old female former smoker with history of alcoholism and pneumonia who presents with a chief complaint of ?I want help with detox.She states that she does not want inpatient detox, is already going to [facility] for outpatient detox. She states she drinks multiple ?[place] beers per day. She denies any thoughts of hurting herself or anybody else, any use of other substances. She drove herself to the emergency department today. She states she feels as though she is dehydrated. Her last drink was about 1 hour prior to emergency department arrival. She denies any history of seizures, any history of detox seizures, denies any nausea or vomiting. She denies any hallucinations, auditory or visual. She denies any creepy crawling or pins and needles sensation. She states she feels a ?a bit jitter.She does complain of diarrhea, states that she has had this for over 2 years since she had a Vasu-en-Y gastric bypass surgery in [place]. She states she has followed up with her surgeon, who suggested she take immodium. She denies current cough, congestion, fever, vomiting. Related Data Home Medications Medication Instructions Recorded Confirmed pramipexole 0.5 mg tablet 0.5 mg PO BEDTIME 04/28/21 04/28/21 Previous Rx's Medication Instructions Recorded levothyroxine 125 mcg tablet 125 mcg PO DAILY #90 tab 02/23/20 Allergies Allergy/AdvReac Type Severity Reaction Status Date / Time animal dander [ANIMAL DANDER] Allergy Intermediate ITCHY Verified 05/04/20 14:27 WATERY EYES AND SNEEZING grass pollen AdvReac Intermediate itching Verified 05/04/20 14:27 house dust AdvReac Intermediate itching Verified 05/04/20 14:27 Review of Systems <GABRIELLE GutierrezBC - Last Filed: 05/09/21 17:13> Review of Systems Narrative: GENERAL: Denies chills, fatigue, malaise, fever, sweats. HEENT: Denies sinus pain, ear pain, sore throat, difficulty swallowing, dizziness. RESPIRATORY: Denies dyspnea, cough, wheezing, hemoptysis, sputum. CARDIOVASCULAR: Denies chest pain, palpitations, orthopnea, edema, GASTROINTESTINAL: Denies nausea, vomiting, abdominal pain, diarrhea, constipation, melena. : Denies dysuria, frequency, incontinence, hematuria, urinary retention. MUSCULOSKELETAL: denies weakness, joint pain, or bony pain SKIN: Denies rash, skin lesions, or other NEUROLOGIC: Denies weakness, headache, numbness, change in speech, confusion, seizures, incoordination. PSYCHIATRIC: See HPI 12 point review of systems is negative except for those stated above Patient History <RAKAN Gutierrez - Last Filed: 05/09/21 17:13> Medical History Acquired hypothyroidism (~2016) Alcohol abuse Allergic rhinitis Depression (Unknown) Obstructive sleep apnea Peripheral edema (~2010) Restless leg Varicose veins of both lower extremities with complications (~2010) Surgical History History of Vasu-en-Y gastric bypass History of thyroidectomy Status post breast lumpectomy Status post laparoscopic cholecystectomy Family History Sister Age: 57 History of breast cancer Son Drug overdose Social History marital status: household members: family occupational status: employed Smoking Status: Former smoker Tobacco: How many years used: 3 second hand exposure: No alcohol intake: current substance use type: does not use Type(s) of exercise: none Smoking Status: Former smoker alcohol intake frequency: 3 or more drinks per day Alcohol type: beer, wine and hard liquor Substance Use Type: marijuana and other Exam <RAKAN Gutierrez - Last Filed: 05/09/21 17:13> Narrative Exam Narrative: GENERAL: This is a well-nourished, well-developed patient, in no acute distress HEAD: Atraumatic. Normocephalic. No temporal or scalp tenderness. EYES: Pupils equal round and reactive. Extraocular motions intact. No scleral icterus. No injection or drainage. ENT: Nose without bleeding, purulent drainage or septal hematoma. Wearing a mask Airway patent. NECK: Trachea midline. No JVD or lymphadenopathy. Supple, nontender, no meningeal signs. CARDIOVASCULAR: Regular rate and rhythm RESPIRATORY: No cough. No increased respiratory effort no accessory muscle use. GASTROINTESTINAL: Abdomen soft, non-tender, nondistended. No hepato- splenomegaly, or palpable masses. No guarding. EXTREMITIES: No clubbing, cyanosis, or edema. No joint tenderness, effusion, or edema noted. BACK: Nontender without deformity or crepitance. No flank tenderness. NEURO: AOx3. Interactive. Clear speech. Slight tremor noted bilateral upper extremities. SKIN: No rash or erythema on visible skin Initial Vital Signs Initial Vital Signs: Vital Signs Temperature 99.1 F 05/09/21 11:55 Pulse Rate 95 H 05/09/21 11:55 Respiratory Rate 16 05/09/21 11:55 Blood Pressure 161/91 H 05/09/21 11:55 Pulse Oximetry 97 05/09/21 11:55 <Yessi Garcia DO - Last Filed: 05/09/21 19:18> Initial Vital Signs Initial Vital Signs: Vital Signs Temperature 99.1 F 05/09/21 11:55 Pulse Rate 95 H 05/09/21 11:55 Respiratory Rate 16 05/09/21 11:55 Blood Pressure 161/91 H 05/09/21 11:55 Pulse Oximetry 97 05/09/21 11:55 Scores <RAKAN Gutierrez - Last Filed: 05/09/21 17:13> GCS Marlene coma scale eye opening: Spontaneous [place] coma scale verbal response: Orientated Marlene coma scale motor response: Obey commands Marlene coma scale total score: 15 <Yessi Garcia DO - Last Filed: 05/09/21 19:18> GCS Marlene coma scale total score: 15 Course <RAKAN Gutierrez - Last Filed: 05/09/21 17:13> Orders Ordered: ED Orders 05/09/21 12:10 Complete Blood Count AUTO DIFF Stat Comprehensive Metabolic Panel Stat Ethanol (ETOH) Stat Hepatic (Liver) Panel Stat Lipase Stat Magnesium Stat Phosphorous Stat 05/09/21 12:27 COVID19 -Nasal swab/Pre-Proc Stat 05/09/21 13:41 Consult to [facility] [place] Information Systems Security Officer Stat 05/09/21 14:30 Urine Drug Screen, Rapid Stat Discontinued Medications Sodium Chloride (Normal Saline 0.9%) 1,000 mls @ 1,000 mls/hr IV BOLUS ONE Stop: 05/09/21 13:01 Last Infusion: 05/09/21 14:22 Dose: 0 mls/hr Documented by: Admin: 05/09/21 12:15 Dose: 1,000 mls/hr Documented by: JOSH Loperamide HCl (Loperamide 2 Mg Capsule) 2 mg PO NOW ONE Stop: 05/09/21 13:36 Last Admin: 05/09/21 14:20 Dose: 2 mg Documented by: JT Phenobarbital (Phenobarbital 65 Mg/Ml Vial) 260 mg IV NOW ONE Stop: 05/09/21 13:36 Last Admin: 05/09/21 14:21 Dose: 260 mg Documented by: JT Vital Signs Vital signs: Vital Signs - 8 hr 05/09/21 11:55 05/09/21 12:27 05/09/21 14:28 Temperature 99.1 F Pulse Rate 95 H 81 73 Respiratory Rate 16 16 Blood Pressure 161/91 H 112/78 Pulse Oximetry 97 98 96 05/09/21 14:30 05/09/21 16:56 Temperature Pulse Rate 69 80 Respiratory Rate 16 Blood Pressure 142/88 H Pulse Oximetry 95 99 <Yessi Garcia, - Last Filed: 05/09/21 19:18> Orders Ordered: ED Orders 05/09/21 12:10 Complete Blood Count AUTO DIFF Stat Comprehensive Metabolic Panel Stat Ethanol (ETOH) Stat Hepatic (Liver) Panel Stat Lipase Stat Magnesium Stat Phosphorous Stat 05/09/21 12:27 COVID19 -Nasal swab/Pre-Proc Stat 05/09/21 13:41 Consult to [facility] [place] Information Systems Security Officer Stat 05/09/21 14:30 Urine Drug Screen, Rapid Stat Discontinued Medications Sodium Chloride (Normal Saline 0.9%) 1,000 mls @ 1,000 mls/hr IV BOLUS ONE Stop: 05/09/21 13:01 Last Infusion: 05/09/21 14:22 Dose: 0 mls/hr Documented by: Admin: 05/09/21 12:15 Dose: 1,000 mls/hr Documented by: JOSH Loperamide HCl (Loperamide 2 Mg Capsule) 2 mg PO NOW ONE Stop: 05/09/21 13:36 Last Admin: 05/09/21 14:20 Dose: 2 mg Documented by: JT Phenobarbital (Phenobarbital 65 Mg/Ml Vial) 260 mg IV NOW ONE Stop: 05/09/21 13:36 Last Admin: 05/09/21 14:21 Dose: 260 mg Documented by: JT Vital Signs Vital signs: Vital Signs - 8 hr 05/09/21 11:55 05/09/21 12:27 05/09/21 14:28 Temperature 99.1 F Pulse Rate 95 H 81 73 Respiratory Rate 16 16 Blood Pressure 161/91 H 112/78 Pulse Oximetry 97 98 96 05/09/21 14:30 05/09/21 16:56 Temperature Pulse Rate 69 80 Respiratory Rate 16 Blood Pressure 142/88 H Pulse Oximetry 95 99 MDM - Alcohol <RAKAN Gutierrez - Last Filed: 05/09/21 17:13> Lab Data Result diagrams: 05/09/21 12:10 05/09/21 12:10 Labs: Lab Results 05/09/21 05/09/21 05/09/21 Range/Units 12:10 12:10 12:27 WBC 5.5 (4.5-11.0) X10^3/uL RBC 4.47 (4.0-5.2) X10^6/uL Hgb 13.1 (12.0-16.0) g/dL Hct 40.5 (36-46) % MCV 90.7 (80-100) fL MCH 29.3 (26-34) PG MCHC 32.3 (30-36) % RDW 18.1 H (11.6-14.8) % Plt Count 279 (150-400) X10^3/uL Neut % (Auto) 71.2 (50-75) % Lymph % (Auto) 21.4 L (25-40) % Clinch % (Auto) 7.0 (3-14) % Eos % (Auto) 0.0 L (2-4) % Baso % (Auto) 0.4 (0-2) % Neut # (Auto) 3900 (6300-6806) /uL Lymph # (Auto) 1200 (5825-8429) /uL Clinch # (Auto) 400 (0-900) /uL Eos # (Auto) 0 (0-450) /uL Baso # (Auto) 0 (0-100) /uL Sodium 141 (137-145) mmol/L Potassium 4.3 (3.4-5.1) mmol/L Chloride 105 (98-107) mmol/L Carbon Dioxide 24 (22-32) mmol/L BUN 6 L (7-17) mg/dL Creatinine 0.66 (0.52-1.04) mg/dL Estimated GFR > 60.0 (>60) mL/min BUN/Creatinine Ratio 9.1 (6-22) Glucose 109 H (70-100) mg/dL Calcium 8.3 L (8.4-10.2) mg/dL Phosphorus 3.5 (2.5-4.5) mg/dL Magnesium 1.7 (1.6-2.3) mg/dL Total Bilirubin 0.4 (0.2-1.3) mg/dL Conjugated Bilirubin 0.0 (0.0-0.3) md/dL Unconjugated Bilirubin 0.1 (0.0-1.1) mg/dL AST 40 H (14-36) IU/L ALT 31 (<35) IU/L Alkaline Phosphatase 102 (38-126) U/L Total Protein 7.1 (6.3-8.2) g/dL Albumin 3.8 (3.5-5.0) g/dL Globulin 3.3 (1.7-4.1) g/dL Albumin/Globulin Ratio 1.2 (1.0-2.8) Lipase 85 (23-300) U/L U Opiates 300ng/mL cut (Negative) Ur Oxycodone Screen (Negative) Urine Methadone Screen (Negative) Ur Barbiturates Screen (Negative) U Tricyclic Antidepress (Negative) Ur Phencyclidine Scrn (Negative) Ur Amphetamines Screen (Negative) U Methamphetamines Scrn (Negative) Ur MDMA Scrn (Ecstasy) (Negative) U Benzodiazepines Scrn (Negative) Urine Cocaine Screen (Negative) U Marijuana (THC) Screen (Negative) Ethyl Alcohol 239 H ( - 10) mg/dL SARS-CoV-2 (PCR) Negative (Negative) 05/09/21 Range/Units 14:30 WBC (4.5-11.0) X10^3/uL RBC (4.0-5.2) X10^6/uL Hgb (12.0-16.0) g/dL Hct (36-46) % MCV (80-100) fL MCH (26-34) PG MCHC (30-36) % RDW (11.6-14.8) % Plt Count (150-400) X10^3/uL Neut % (Auto) (50-75) % Lymph % (Auto) (25-40) % Clinch % (Auto) (3-14) % Eos % (Auto) (2-4) % Baso % (Auto) (0-2) % Neut # (Auto) (3578-8247) /uL Lymph # (Auto) (8026-9198) /uL Clinch # (Auto) (0-900) /uL Eos # (Auto) (0-450) /uL Baso # (Auto) (0-100) /uL Sodium (137-145) mmol/L Potassium (3.4-5.1) mmol/L Chloride (98-107) mmol/L Carbon Dioxide (22-32) mmol/L BUN (7-17) mg/dL Creatinine (0.52-1.04) mg/dL Estimated GFR (>60) mL/min BUN/Creatinine Ratio (6-22) Glucose (70-100) mg/dL Calcium (8.4-10.2) mg/dL Phosphorus (2.5-4.5) mg/dL Magnesium (1.6-2.3) mg/dL Total Bilirubin (0.2-1.3) mg/dL Conjugated Bilirubin (0.0-0.3) md/dL Unconjugated Bilirubin (0.0-1.1) mg/dL AST (14-36) IU/L ALT (<35) IU/L Alkaline Phosphatase (38-126) U/L Total Protein (6.3-8.2) g/dL Albumin (3.5-5.0) g/dL Globulin (1.7-4.1) g/dL Albumin/Globulin Ratio (1.0-2.8) Lipase (23-300) U/L U Opiates 300ng/mL cut Negative (Negative) Ur Oxycodone Screen Negative (Negative) Urine Methadone Screen Negative (Negative) Ur Barbiturates Screen Negative (Negative) U Tricyclic Antidepress Negative (Negative) Ur Phencyclidine Scrn Negative (Negative) Ur Amphetamines Screen Negative (Negative) U Methamphetamines Scrn Negative (Negative) Ur MDMA Scrn (Ecstasy) Negative (Negative) U Benzodiazepines Scrn Positive H (Negative) Urine Cocaine Screen Negative (Negative) U Marijuana (THC) Screen Negative (Negative) Ethyl Alcohol ( - 10) mg/dL SARS-CoV-2 (PCR) (Negative) Urine Dip Bedside Urine Glucose Negative Bedside Urine Bilirubin - Negative Bedside Urine Ketone - Negative Urine Specific [place] 1.010 Bedside Urine Occult Blood - Negative Bedside Urine pH 6 Bedside Urine Protein - Negative Bedside Urine Urobilinogen - Negative Bedside Urine Nitrite - Negative Bedside Urine Leukocytes - Negative Esterase MDM Narrative Medical decision making narrative: The patient is a 55-year-old female who presents with a chief complaint of requesting help detoxing. Her CIWAs throughout her stay were 5. She does not want inpatient detox. She was seen by social work during her stay, who was able to provide supports and will provide follow-up. She was given 260 mg IV phenobarbital to help prevent withdrawal symptoms. She repeatedly declines inpatient detox. I discussed at length that she can come back to emergency department for any acute concerns if she changes her mind. Overall her labs look reassuring. Patient has been hemodynamically stable and well appearing throughout her stay in the ER. Patient has no questi ons or concerns upon discharge states understanding of return precautions as well as follow-up care. Given that the patient was intoxicated upon arrival, we made sure that she had a ride upon discharge and viewed her ride prior to discharge. <Yessi Garcia, DO - Last Filed: 05/09/21 19:18> Lab Data Labs: Lab Results 05/09/21 05/09/21 05/09/21 Range/Units 12:10 12:10 12:27 WBC 5.5 (4.5-11.0) X10^3/uL RBC 4.47 (4.0-5.2) X10^6/uL Hgb 13.1 (12.0-16.0) g/dL Hct 40.5 (36-46) % MCV 90.7 (80-100) fL MCH 29.3 (26-34) PG MCHC 32.3 (30-36) % RDW 18.1 H (11.6-14.8) % Plt Count 279 (150-400) X10^3/uL Neut % (Auto) 71.2 (50-75) % Lymph % (Auto) 21.4 L (25-40) % Clinch % (Auto) 7.0 (3-14) % Eos % (Auto) 0.0 L (2-4) % Baso % (Auto) 0.4 (0-2) % Neut # (Auto) 3900 (0124-5358) /uL Lymph # (Auto) 1200 (6313-4934) /uL Clinch # (Auto) 400 (0-900) /uL Eos # (Auto) 0 (0-450) /uL Baso # (Auto) 0 (0-100) /uL Sodium 141 (137-145) mmol/L Potassium 4.3 (3.4-5.1) mmol/L Chloride 105 (98-107) mmol/L Carbon Dioxide 24 (22-32) mmol/L BUN 6 L (7-17) mg/dL Creatinine 0.66 (0.52-1.04) mg/dL Estimated GFR > 60.0 (>60) mL/min BUN/Creatinine Ratio 9.1 (6-22) Glucose 109 H (70-100) mg/dL Calcium 8.3 L (8.4-10.2) mg/dL Phosphorus 3.5 (2.5-4.5) mg/dL Magnesium 1.7 (1.6-2.3) mg/dL Total Bilirubin 0.4 (0.2-1.3) mg/dL Conjugated Bilirubin 0.0 (0.0-0.3) md/dL Unconjugated Bilirubin 0.1 (0.0-1.1) mg/dL AST 40 H (14-36) IU/L ALT 31 (<35) IU/L Alkaline Phosphatase 102 (38-126) U/L Total Protein 7.1 (6.3-8.2) g/dL Albumin 3.8 (3.5-5.0) g/dL Globulin 3.3 (1.7-4.1) g/dL Albumin/Globulin Ratio 1.2 (1.0-2.8) Lipase 85 (23-300) U/L U Opiates 300ng/mL cut (Negative) Ur Oxycodone Screen (Negative) Urine Methadone Screen (Negative) Ur Barbiturates Screen (Negative) U Tricyclic Antidepress (Negative) Ur Phencyclidine Scrn (Negative) Ur Amphetamines Screen (Negative) U Methamphetamines Scrn (Negative) Ur MDMA Scrn (Ecstasy) (Negative) U Benzodiazepines Scrn (Negative) Urine Cocaine Screen (Negative) U Marijuana (THC) Screen (Negative) Ethyl Alcohol 239 H ( - 10) mg/dL SARS-CoV-2 (PCR) Negative (Negative) 05/09/21 Range/Units 14:30 WBC (4.5-11.0) X10^3/uL RBC (4.0-5.2) X10^6/uL Hgb (12.0-16.0) g/dL Hct (36-46) % MCV (80-100) fL MCH (26-34) PG MCHC (30-36) % RDW (11.6-14.8) % Plt Count (150-400) X10^3/uL Neut % (Auto) (50-75) % Lymph % (Auto) (25-40) % Clinch % (Auto) (3-14) % Eos % (Auto) (2-4) % Baso % (Auto) (0-2) % Neut # (Auto) (1248-1837) /uL Lymph # (Auto) (3919-8383) /uL Clinch # (Auto) (0-900) /uL Eos # (Auto) (0-450) /uL Baso # (Auto) (0-100) /uL Sodium (137-145) mmol/L Potassium (3.4-5.1) mmol/L Chloride (98-107) mmol/L Carbon Dioxide (22-32) mmol/L BUN (7-17) mg/dL Creatinine (0.52-1.04) mg/dL Estimated GFR (>60) mL/min BUN/Creatinine Ratio (6-22) Glucose (70-100) mg/dL Calcium (8.4-10.2) mg/dL Phosphorus (2.5-4.5) mg/dL Magnesium (1.6-2.3) mg/dL Total Bilirubin (0.2-1.3) mg/dL Conjugated Bilirubin (0.0-0.3) md/dL Unconjugated Bilirubin (0.0-1.1) mg/dL AST (14-36) IU/L ALT (<35) IU/L Alkaline Phosphatase (38-126) U/L Total Protein (6.3-8.2) g/dL Albumin (3.5-5.0) g/dL Globulin (1.7-4.1) g/dL Albumin/Globulin Ratio (1.0-2.8) Lipase (23-300) U/L U Opiates 300ng/mL cut Negative (Negative) Ur Oxycodone Screen Negative (Negative) Urine Methadone Screen Negative (Negative) Ur Barbiturates Screen Negative (Negative) U Tricyclic Antidepress Negative (Negative) Ur Phencyclidine Scrn Negative (Negative) Ur Amphetamines Screen Negative (Negative) U Methamphetamines Scrn Negative (Negative) Ur MDMA Scrn (Ecstasy) Negative (Negative) U Benzodiazepines Scrn Positive H (Negative) Urine Cocaine Screen Negative (Negative) U Marijuana (THC) Screen Negative (Negative) Ethyl Alcohol ( - 10) mg/dL SARS-CoV-2 (PCR) (Negative) Urine Dip Bedside Urine Glucose Negative Bedside Urine Bilirubin - Negative Bedside Urine Ketone - Negative Urine Specific [place] 1.010 Bedside Urine Occult Blood - Negative Bedside Urine pH 6 Bedside Urine Protein - Negative Bedside Urine Urobilinogen - Negative Bedside Urine Nitrite - Negative Bedside Urine Leukocytes - Negative Esterase Discharge Plan Departure Patient Disposition: Home Clinical Impression: Alcohol abuse Instructions: Alcohol Use Disorder (Alternative Therapy), DI for Alcohol Use Disorder Activity Restrictions/Additional Instructions: Thank you for trusting us with your care today. As discussed, we have given you phenobarbital to help with alcohol withdrawal. Please follow-up with your primary care provider as well as your planned outpatient detox program. As discussed, please come back to the emergency department for any acute concerns. Prescriptions: No Action levothyroxine 125 mcg tablet 125 mcg PO DAILY Qty: 90 RF: 3 pramipexole 0.5 mg tablet 0.5 mg PO BEDTIME RF: 0 Referrals: Ani Mckeon PA-C [Primary Care Provider] - <Yessi Garcia DO - Last Filed: 05/09/21 19:18> Cosign ED Attending Coskeenanature Attestation: I was immediately available in the department for consultation. Documentation has been reviewed. I agree with assessment and plan.
[2021-05-09] MEDS: LOPERAMIDE 2 MG CAPSULE PO (14:20)
[2021-05-09] MEDS: PHENobarbital 65 MG/ML VIAL 260 MG IV (14:21)
[2021-05-09 14:28] VITALS: BP 112/78; PULSE 73; O2SAT 96
[2021-05-09 14:30] VITALS: PULSE 69; O2SAT 95
[2021-05-09 14:39] LABS: UR Morphine/Opiate cutoff 300 Negative (Negative); Ur Creatinine Normal (Normal); Ur Specific Gravity Normal (Normal); Urine Amphetamines Negative (Negative); Urine Barbiturates Negative (Negative); Urine Benzodiazepines Positive (Negative); Urine Cocaine Negative (Negative); Urine MDMA Negative (Negative); Urine Methadone Negative (Negative); Urine Methamphetamines Negative (Negative); Urine Oxycodone Negative (Negative); Urine Phencyclidine Negative (Negative); Urine Tetrahydrocannabinol Negative (Negative); Urine Tricyclic Antidepressant Negative (Negative); Urine pH Normal (Normal)
--- NOTE | 2021-05-09 15:21 | CM.SWNOTE ---
NIGHT WORKER Assessment NIGHT WORKER - Vacuum Tester Cans Assessment NIGHT WORKER/Vacuum Tester Cans Assessment Time Spent with Patient Start date 05/09/21 Visit Start Time 14:40 End date 05/09/21 Visit End Time 15:05 Total time Care Management spent on 25 patient visit-in minutes Substance Abuse Screening Include Onset, Duration, Intensity Presenting Problem Patient presents to this ED for ETOH detox Precipitating Event(s) Patient endorses she lost her job 2 weeks ago Patient Strengths Patient shows insight Current Behavioral Health Provider(s) None reported Include Facility, Provider, Ph. # Family Hx of Behavioral Abuse Patient endorses witnessing her sons attempt suicide and older son from suicide Rehab Facilities? ((Date(s), Location(s) Patient endorses going to ) inpatient treatment in [place], [place] at [facility] in November 2019 History of Withdrawal? Seizures? None reported Longest Period of Sobriety 5 days Psychosocial information & Support Patient is 55 y/o female who Systems resides in [place] with her son. Patient states she has supportive sober friends. 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, patient seeking unemployment benefits Legal Concerns Legal Matters - Outstanding Issues None reported Mental Status Orientation (Person/Place/Time) A/Ox4 Stated Mood trying to detox Affect (Congruent with Mood?) dysphoric, labile, congruent with mood Thought Content - Specify/Describe None reported Obsessions, Delusions, Hallucinations Thought Processes (Gjsvezq-Zfaetpfs-Ayqd Coherent Oxdrepsi-Siflxatd-Vadteauviv- Bydjivnptegwyy-Ubjwcfd-Onavnbgjgend- Thought Blocking) Speech (Ismioz-Ucmz-Eoofntk-Rapid-Soft- Normal Loud-Pressured) Motor (Aljxkb-Wzlxptdyb-Jwmn-Other) Normal, not formally assessed Insight (Dlus-Enrz-Izdb/Limited) fair/limited Judgement (Cgxa-Jwaq-Yyeq/Limited) fair/limited Impulse Control (Adequate-Impaired) adequate Memory (Ugwunlpcl-Prjohh-Fuelyw, intact Impaired-Intact) Concentration (Intact-Impaired) intact Attention (Intact-Impaired) intact Behavior (Appropriate-Inappropriate) appropriate Risk Assessment Suicidal Ideation (Plan) No Homicidal Ideation (Plan) No Comment Patient denies HI and SI. Patient states she could never go through with anything because of her son. Intervention Intervention NIGHT WORKER enters room and meets with patient. Patient endorses that her last drink was an hour before she presented to this hospital. Patient reports she is seeking detox, patient states that she called [facility] and scheduled an intake appt for 05/13/21. Patient endorses that she recently lost her job and she has been drinking 4-6 beers a day. Patient states that her friend knows she is here but her 17 y/o son does not. Patient endorses concerns of who would care for her son if she went to inpatient treatment or detox. NIGHT WORKER and patient discuss the option of son staying at friend's house. Patient states that at this time she feels safe to d/c home when she is medically clear. Patient states that she attended an AA meeting the day before yesterday and is seeking a sponsor. Patient endorses that she plans to attend an AA meeting at d/c from this ED. NIGHT WORKER discusses [facility] resources available to patient and encourages patient to follow through with [facility] recommendations. Patient agrees to have this NIGHT WORKER follow up with patient prior to [facility] appt and afterwards. It is the opinion of this NIGHT WORKER that patient is safe to d/c home when medically clear. NIGHT WORKER reviews the above with ED provider RAKAN Gutierrez who indicates agreement and understanding. Plan RA Plan Patient to d/c home when medically clear with NIGHT WORKER follow up prior to and after scheduled intake appt with [facility] MITESH Fry
[2021-05-09 16:56] VITALS: BP 142/88; PULSE 80; RESP 16; O2SAT 99
== END 2021-05-09 16:57 | disposition home or self-care (01) ==
PROVIDERS: Emergency Provider Nurse Practitioner Family; PCP Physician Assistant
DX: F10.129 Alcohol abuse with intoxication, unspecified (principal)
CPT/HCPCS: 36415; 80053; 80076; 80305; 80320; 81003; 83690; 83735; 84100; 85025; 87635; C9803; J2560

== ENCOUNTER 2021-05-09 21:27 | Emergency (ER) | payer OTHER, MEDICAID, SELFPAY ==
[2021-04-28 02:35] VITALS: BMI 41.9
[2021-05-09 21:42] VITALS: BP 171/112; PULSE 90; RESP 20; TEMP 36.9; O2SAT 99; BMI 40.2
--- NOTE | 2021-05-09 21:49 | PC.NURSE ---
Patient endorses desire to go to alcohol detox so that she can be there for her son, who tried to hang himself 4 years ago.
[2021-05-09 22:13] LABS: Add Manual Diff / Slide Review NO; Basophils Absolute Auto 0 /uL (0-100); Basophils Percent Auto 0.4 % (0-2); Eosinophils Absolute Auto 0 /uL (0-450); Hematocrit 39.2 % (36-46); Hemoglobin 12.7 g/dL (12.0-16.0); Lymphocytes Absolute Auto 1100 /uL (1100-4500); Mean Corpuscular HGB Conc 32.4 % (30-36); Mean Corpuscular Hemoglobin 29.4 PG (26-34); Mean Corpuscular Volume 90.9 fL (80-100); Monocytes Absolute Auto 300 /uL (0-900); Monocytes Percent Auto 10.1 % (3-14); Neutrophils Absolute Auto 1800 /uL (1500-7000); Neutrophils Percent Auto 55.5 % (50-75); Platelet Count 253 X10^3/uL (150-400); Red Blood Cell Count 4.31 X10^6/uL (4.0-5.2); Red Cell Distribution Width 17.9 % (11.6-14.8); White Blood Cell Count 3.2 X10^3/uL (4.5-11.0)
[2021-05-09 22:16] LABS: Bacteria Urine None Seen; RBC Urine None Seen (0-5/HPF); WBC Urine None Seen (0-5/HPF)
[2021-05-09 22:18] LABS: Appearance Urine UA CLEAR; Bilirubin Urine UA NEGATIVE (NEGATIVE); Color Urine UA YELLOW; Glucose Urine UA NEGATIVE (Negative); Ketones Urine UA NEGATIVE (NEGATIVE); Leukocyte Esterase Urine UA NEGATIVE (NEGATIVE); Nitrite Urine UA NEGATIVE (Negative); Occult Blood Urine UA NEGATIVE (Negative); Protein Urine UA NEGATIVE (Negative); Specific Gravity Urine UA <=1.005 (1.000-1.035); Urobilinogen Urine UA 0.2 E.U./dL (0.2)
[2021-05-09 22:20] LABS: Alanine Aminotransferase 29 IU/L (<35); Albumin 3.8 g/dL (3.5-5.0); Albumin Globulin Ratio 1.2 (1.0-2.8); Alkaline Phosphatase 109 U/L (38-126); Aspartate Aminotransferase 42 IU/L (14-36); BUN Creatinine Ratio 9.8 (6-22); Bilirubin Total 0.5 mg/dL (0.2-1.3); Blood Urea Nitrogen 6 mg/dL (7-17); Calcium 8.3 mg/dL (8.4-10.2); Carbon Dioxide 25 mmol/L (22-32); Chloride 105 mmol/L (98-107); Estimated Glomerular Filt Rate > 60.0 mL/min (>60); Ethanol (ETOH) 216 mg/dL; Globulin 3.3 g/dL (1.7-4.1); Glucose 106 mg/dL (70-100); HEMOLYSIS 17 (0-50); Potassium 4.3 mmol/L (3.4-5.1); Sodium 138 mmol/L (137-145); Total Protein 7.1 g/dL (6.3-8.2)
[2021-05-09 22:24] LABS: Ur Creatinine 20 (Normal); Ur Specific Gravity <1.005 (Normal); Urine pH 6.5 (Normal)
[2021-05-09 22:25] LABS: UR Morphine/Opiate cutoff 300 Negative (Negative); Urine Amphetamines Negative (Negative); Urine Barbiturates Negative (Negative); Urine Benzodiazepines Positive (Negative); Urine Cocaine Negative (Negative); Urine MDMA Negative (Negative); Urine Methadone Negative (Negative); Urine Methamphetamines Negative (Negative); Urine Oxycodone Negative (Negative); Urine Phencyclidine Negative (Negative); Urine Tetrahydrocannabinol Negative (Negative); Urine Tricyclic Antidepressant Negative (Negative)
[2021-05-09 22:34] LABS: Culture Indicated Urine Cult Not Indicated; pH Urine UA 6.5 (4.5-8.0)
[2021-05-10 00:49] VITALS: BP 151/83; PULSE 86; RESP 16; TEMP 36.8; O2SAT 94
--- NOTE | 2021-05-10 01:10 | ED_ITS ---
HPI - Alcohol General Chief Complaint: Toxicology Problem Stated Complaint: need to go to [facility] Time Seen by Provider: 05/09/21 21:32 History of Present Illness HPI narrative: 55-year-old female nonsmoker with extensive history of alcohol, up to 4 tall boys daily for quite some time. Her last drink was about 12 hours ago. She is hoping for placement to a detox facility. She is feeling a bit agitated and shaky. She has been through the DTs before. She has never had seizures. She denies any recent trauma or injury. She has no chest pain, shortness of breath nor nausea or vomiting. Related Data Home Medications Medication Instructions Recorded Confirmed pramipexole 0.5 mg tablet 0.5 mg PO BEDTIME 04/28/21 04/28/21 Previous Rx's Medication Instructions Recorded levothyroxine 125 mcg tablet 125 mcg PO DAILY #90 tab 02/23/20 Allergies Allergy/AdvReac Type Severity Reaction Status Date / Time animal dander [ANIMAL DANDER] Allergy Intermediate ITCHY Verified 05/04/20 14:27 WATERY EYES AND SNEEZING grass pollen AdvReac Intermediate itching Verified 05/04/20 14:27 house dust AdvReac Intermediate itching Verified 05/04/20 14:27 Review of Systems Review of Systems Narrative: GENERAL: See HPI HEENT: Denies sinus pain, ear pain, sore throat, difficulty swallowing, dizziness. RESPIRATORY: Denies dyspnea, cough, wheezing, hemoptysis, sputum. CARDIOVASCULAR: Denies chest pain, palpitations, orthopnea, edema, GASTROINTESTINAL: Denies nausea, vomiting, abdominal pain, diarrhea, constipation, melena. : Denies dysuria, frequency, incontinence, hematuria, urinary retention. MUSCULOSKELETAL: denies weakness, joint pain, or bony pain SKIN: Denies rash, skin lesions, or other NEUROLOGIC: See HPI PSYCHIATRIC: N see HPI s. 12 point review of systems is negative except for those stated above Patient History Medical History Acquired hypothyroidism (~2016) Alcohol abuse Allergic rhinitis Depression (Unknown) Obstructive sleep apnea Peripheral edema (~2010) Restless leg Varicose veins of both lower extremities with complications (~2010) Surgical History History of Vasu-en-Y gastric bypass History of thyroidectomy Status post breast lumpectomy Status post laparoscopic cholecystectomy Family History Sister Age: 57 History of breast cancer Son Drug overdose Social History marital status: household members: family occupational status: employed Smoking Status: Former smoker Tobacco: How many years used: 3 second hand exposure: No alcohol intake: current substance use type: does not use Type(s) of exercise: none Smoking Status: Former smoker alcohol intake frequency: 3 or more drinks per day Alcohol type: beer, wine and hard liquor Substance Use Type: marijuana and other Exam Narrative Exam Narrative: GENERAL: [55] year old patient appears stated age. Well- developed patient, in mild distress. Anxious HEAD: Atraumatic. Normocephalic. EYES: Pupils equal round and reactive. Extraocular motions intact. No scleral icterus. No injection or drainage. ENT: Nose without bleeding, purulent drainage. Throat without erythema, tonsilla r hypertrophy or exudate. Airway patent. NECK: Trachea midline. Non tender CARDIOVASCULAR: Regular rate and rhythm without murmurs, gallops, or rubs. RESPIRATORY: Clear to auscultation. Breath sounds equal bilaterally. No wheezes, rales, or rhonchi. GASTROINTESTINAL: Abdomen soft, non-tender, nondistended. EXTREMITIES: No edema or joint tenderness. BACK: Nontender without deformity or crepitance. No flank tenderness. NEURO: AOx3. SKIN: No rash or erythema of visible areas Initial Vital Signs Initial Vital Signs: Vital Signs Temperature 98.4 F 05/09/21 21:42 Pulse Rate 90 05/09/21 21:42 Respiratory Rate 20 05/09/21 21:42 Blood Pressure 171/112 H 05/09/21 21:42 Pulse Oximetry 99 05/09/21 21:42 Course Course Course Narrative: Micheline for Alcohol Withdrawal from [facility] on 05/10/2021 All calculations should be rechecked by clinician prior to use RESULT SUMMARY: 5 points Patients with scores ?8 typically do not require medication for withdrawal. INPUTS: Nausea/vomiting ?> 0 = No nausea and no vomiting Tremor ?> 1 = Not visible, but can be felt fingertip to fingertip Paroxysmal sweats ?> 0 = No sweat visible Anxiety ?> 2 = (More severe symptoms) Agitation ?> 2 = (More severe symptoms) Tactile disturbances ?> 0 = None Auditory disturbances ?> 0 = Not present Visual disturbances ?> 0 = Not present Headache/fullness in head ?> 0 = Not Present Orientation/clouding of sensorium ?> 0 = Oriented, can do serial additions Orders Ordered: ED Orders 05/09/21 22:00 Complete Blood Count AUTO DIFF Stat Comprehensive Metabolic Panel Stat Ethanol (ETOH) Stat 05/09/21 22:08 Urinalysis and Microscopic Stat Urine Drug Screen, Rapid Stat Discontinued Medications Lorazepam (Lorazepam 0.5 Mg Tablet) 2 mg PO NOW ONE Stop: 05/10/21 01:36 Last Admin: 05/10/21 01:38 Dose: 2 mg Documented by: DERECK Phenobarbital (Phenobarbital 65 Mg/Ml Vial) 260 mg IV NOW ONE Stop: 05/10/21 01:06 Last Admin: 05/10/21 01:32 Dose: Not Given Documented by: DERECK Vital Signs Vital signs: Vital Signs - 8 hr 05/09/21 21:42 05/10/21 00:49 Temperature 98.4 F 98.2 F Pulse Rate 90 86 Respiratory Rate 20 16 Blood Pressure 171/112 H 151/83 H Pulse Oximetry 99 94 MDM - Alcohol Lab Data Result diagrams: 05/09/21 22:00 05/09/21 22:00 Labs: Lab Results 05/09/21 05/09/21 05/09/21 Range/Units 22:00 22:00 22:08 WBC 3.2 L (4.5-11.0) X10^3/uL RBC 4.31 (4.0-5.2) X10^6/uL Hgb 12.7 (12.0-16.0) g/dL Hct 39.2 (36-46) % MCV 90.9 (80-100) fL MCH 29.4 (26-34) PG MCHC 32.4 (30-36) % RDW 17.9 H (11.6-14.8) % Plt Count 253 (150-400) X10^3/uL Neut % (Auto) 55.5 (50-75) % Lymph % (Auto) 34.0 (25-40) % [place] % (Auto) 10.1 (3-14) % Eos % (Auto) 0.0 L (2-4) % Baso % (Auto) 0.4 (0-2) % Neut # (Auto) 1800 (8804-3233) /uL Lymph # (Auto) 1100 (7185-2094) /uL [place] # (Auto) 300 (0-900) /uL Eos # (Auto) 0 (0-450) /uL Baso # (Auto) 0 (0-100) /uL Sodium 138 (137-145) mmol/L Potassium 4.3 (3.4-5.1) mmol/L Chloride 105 (98-107) mmol/L Carbon Dioxide 25 (22-32) mmol/L BUN 6 L (7-17) mg/dL Creatinine 0.61 (0.52-1.04) mg/dL Estimated GFR > 60.0 (>60) mL/min BUN/Creatinine Ratio 9.8 (6-22) Glucose 106 H (70-100) mg/dL Calcium 8.3 L (8.4-10.2) mg/dL Total Bilirubin 0.5 (0.2-1.3) mg/dL AST 42 H (14-36) IU/L ALT 29 (<35) IU/L Alkaline Phosphatase 109 (38-126) U/L Total Protein 7.1 (6.3-8.2) g/dL Albumin 3.8 (3.5-5.0) g/dL Globulin 3.3 (1.7-4.1) g/dL Albumin/Globulin Ratio 1.2 (1.0-2.8) Urine Color Urine Appearance Urine pH (4.5-8.0) Ur Specific [place] (1.000-1.035) Urine Protein (Negative) Urine Glucose (UA) (Negative) g/dL Urine Ketones (NEGATIVE) Urine Occult Blood (Negative) Urine Nitrate (Negative) Urine Bilirubin (NEGATIVE) Urine Urobilinogen (0.2) E.U./dL Ur Leukocyte Esterase (NEGATIVE) Urine RBC (0-5/HPF) Urine WBC (0-5/HPF) Urine Bacteria (None) Ur Culture Indicated? U Opiates 300ng/mL cut Negative (Negative) Ur Oxycodone Screen Negative (Negative) Urine Methadone Screen Negative (Negative) Ur Barbiturates Screen Negative (Negative) U Tricyclic Antidepress Negative (Negative) Ur Phencyclidine Scrn Negative (Negative) Ur Amphetamines Screen Negative (Negative) U Methamphetamines Scrn Negative (Negative) Ur MDMA Scrn (Ecstasy) Negative (Negative) U Benzodiazepines Scrn Positive H (Negative) Urine Cocaine Screen Negative (Negative) U Marijuana (THC) Screen Negative (Negative) Ethyl Alcohol 216 H ( - 10) mg/dL 05/09/21 Range/Units 22:08 WBC (4.5-11.0) X10^3/uL RBC (4.0-5.2) X10^6/uL Hgb (12.0-16.0) g/dL Hct (36-46) % MCV (80-100) fL MCH (26-34) PG MCHC (30-36) % RDW (11.6-14.8) % Plt Count (150-400) X10^3/uL Neut % (Auto) (50-75) % Lymph % (Auto) (25-40) % [place] % (Auto) (3-14) % Eos % (Auto) (2-4) % Baso % (Auto) (0-2) % Neut # (Auto) (3349-7263) /uL Lymph # (Auto) (0504-3925) /uL [place] # (Auto) (0-900) /uL Eos # (Auto) (0-450) /uL Baso # (Auto) (0-100) /uL Sodium (137-145) mmol/L Potassium (3.4-5.1) mmol/L Chloride (98-107) mmol/L Carbon Dioxide (22-32) mmol/L BUN (7-17) mg/dL Creatinine (0.52-1.04) mg/dL Estimated GFR (>60) mL/min BUN/Creatinine Ratio (6-22) Glucose (70-100) mg/dL Calcium (8.4-10.2) mg/dL Total Bilirubin (0.2-1.3) mg/dL AST (14-36) IU/L ALT (<35) IU/L Alkaline Phosphatase (38-126) U/L Total Protein (6.3-8.2) g/dL Albumin (3.5-5.0) g/dL Globulin (1.7-4.1) g/dL Albumin/Globulin Ratio (1.0-2.8) Urine Color Yellow Urine Appearance Clear Urine pH 6.5 (4.5-8.0) Ur Specific [place] <=1.005 (1.000-1.035) Urine Protein Negative (Negative) Urine Glucose (UA) Negative (Negative) g/dL Urine Ketones Negative (NEGATIVE) Urine Occult Blood Negative (Negative) Urine Nitrate Negative (Negative) Urine Bilirubin Negative (NEGATIVE) Urine Urobilinogen 0.2 (0.2) E.U./dL Ur Leukocyte Esterase Negative (NEGATIVE) Urine RBC None seen (0-5/HPF) Urine WBC None seen (0-5/HPF) Urine Bacteria None seen (None) Ur Culture Indicated? Cult not indicated U Opiates 300ng/mL cut (Negative) Ur Oxycodone Screen (Negative) Urine Methadone Screen (Negative) Ur Barbiturates Screen (Negative) U Tricyclic Antidepress (Negative) Ur Phencyclidine Scrn (Negative) Ur Amphetamines Screen (Negative) U Methamphetamines Scrn (Negative) Ur MDMA Scrn (Ecstasy) (Negative) U Benzodiazepines Scrn (Negative) Urine Cocaine Screen (Negative) U Marijuana (THC) Screen (Negative) Ethyl Alcohol ( - 10) mg/dL MDM Narrative Medical decision making narrative: Patient has been medically cleared by us and has been accepted for admission at [facility]. [facility] transport has been dispatched and will be here at about 0215. Discharge Plan Departure Patient Disposition: Home Clinical Impression: Alcohol abuse Activity Restrictions/Additional Instructions: *You have been diagnosed with [chronic alcohol abuse] *What to do: *Please continue to take your regular medications as directed. [ ] New medication prescriptions sent to your pharmacy: [ ] [ ] New medication written as a paper prescription [ ] No new medications given *Please proceed directly (via EMS) to [facility] they are expecting you. Good luck moving forward, thank you for trusting us with your care Prescriptions: No Action levothyroxine 125 mcg tablet 125 mcg PO DAILY Qty: 90 RF: 3 pramipexole 0.5 mg tablet 0.5 mg PO BEDTIME RF: 0 Referrals: Ani Mckeon PA-C [Primary Care Provider] -
[2021-05-10] MEDS: LORazepam 0.5 MG TABLET 2 MG PO (01:38)
== END 2021-05-10 02:22 | disposition home or self-care (01) ==
PROVIDERS: Emergency Provider Emergency Medicine; PCP Physician Assistant
DX: F10.229 Alcohol dependence with intoxication, unspecified (principal); Z20.822 Contact with and (suspected) exposure to COVID-19
CPT/HCPCS: 36415; 80053; 80076; 80305; 80320; 81001; 81003; 83690; 83735; 84100; 85025; 87635; 96361; 96374; 99283; 99284; C9803; J2560

== ENCOUNTER 2021-08-17 16:57 | Emergency (ER) | payer OTHER, MEDICAID, SELFPAY ==
[2021-04-28 02:35] VITALS: BMI 41.9
[2021-08-17] VITALS (13 sets, daily range): BP systolic 137–176; BP diastolic 66–104; PULSE 73–86; RESP 0–23; TEMP 36.9; O2SAT 92–98; BMI 40.2
[2021-08-17] MEDS: MULTIVITAMIN 1 TABLET 1 TAB PO (17:49)
[2021-08-17] MEDS: THIAMINE 100 MG in SODIUM CHLORIDE 0.9% 100 ML 404 ML IV (17:49)
--- NOTE | 2021-08-17 18:01 | ED_ITS ---
HPI - Alcohol General Chief Complaint: Toxicology Problem Stated Complaint: ETOH withdrawal Time Seen by Provider: 08/17/21 17:22 Source: patient and EMS Mode of arrival: EMS Limitations: no limitations History of Present Illness HPI narrative: This is a 55-year-old female who comes requesting detox. Patient states she was sober for approximately 3 months. She returned to drinking approximately 3 days ago. She states her last drink was just prior to arrival. She states she did have a fall several days ago. She has been ambulating without issue she does note she has bruising on several areas. She denies any pain currently. She does take medication for depression, hyperthyroidism and insomnia. She has been off her medications for several months. She denies any tobacco states she quit about 7 years ago. She did smoke some marijuana today because she thought it would help with her detox but states she does not use it regularly. She denies other recreational drugs. Related Data Home Medications Medication Instructions Recorded Confirmed pramipexole 0.5 mg tablet 0.5 mg PO BEDTIME 04/28/21 04/28/21 Previous Rx's Medication Instructions Recorded levothyroxine 125 mcg tablet 125 mcg PO DAILY #90 tab 02/23/20 Allergies Allergy/AdvReac Type Severity Reaction Status Date / Time animal dander [ANIMAL DANDER] Allergy Intermediate ITCHY Verified 08/17/21 17:05 WATERY EYES AND SNEEZING grass pollen AdvReac Intermediate itching Verified 08/17/21 17:05 house dust AdvReac Intermediate itching Verified 08/17/21 17:05 Review of Systems Review of Systems ROS Unobtainable: All systems reviewed & are unremarkable except as noted in HPI and below Patient History Medical History Acquired hypothyroidism (~2016) Alcohol abuse Allergic rhinitis Depression (Unknown) Obstructive sleep apnea Peripheral edema (~2010) Restless leg Varicose veins of both lower extremities with complications (~2010) Surgical History History of Vasu-en-Y gastric bypass History of thyroidectomy Status post breast lumpectomy Status post laparoscopic cholecystectomy Family History Sister Age: 57 History of breast cancer Son Drug overdose Social History marital status: household members: family occupational status: employed Smoking Status: Former smoker Tobacco: How many years used: 3 second hand exposure: No alcohol intake: current substance use type: does not use Type(s) of exercise: none Smoking Status: Former smoker alcohol intake frequency: 3 or more drinks per day Alcohol type: beer, wine and hard liquor Substance Use Type: marijuana and other Exam Narrative Exam Narrative: GEN: well nourished, well appearing moves of female, alert and oriented x 3, patient appears to be in mild distress. HEENT: Atraumatic, pupils are equal round reactive to light, extraocular movements are intact, nares are clear. Throat is clear without any exudates, erythema, tonsillar enlargement or uvular deviation HEART: Regular rate and rhythm without murmur, clicks, rubs. Pulses are equal in upper and lower extremities LUNGS:Lungs clear to auscultation, no wheezes, rales, crackles, chest moves symmetrically, chest is non-tender. ABD:bowel sounds normal, soft, non-tender, no guarding, rebound, rigidity, no masses noted, no hepatosplenomegaly :No CVA tenderness MSCL: Non-tender, no muscle atrophy, muscles strength 5/5 upper and lower extremities, full range of motion. Patient is nontender with bony palpation. NEURO:CN 2-12 intact, sensation normal SKIN: Patient has ecchymosis on her right anterior rodas and foot. No hematoma clearly palpated. Patient also has a small hematoma on her right forearm. PSYCH: Patient denies any thoughts of harming herself or others. Initial Vital Signs Initial Vital Signs: Vital Signs Temperature 98.4 F 08/17/21 17:03 Pulse Rate 75 08/17/21 17:03 Respiratory Rate 18 08/17/21 17:03 Blood Pressure 176/104 H 08/17/21 17:03 Pulse Oximetry 96 08/17/21 17:03 Course Orders Ordered: ED Orders 08/17/21 17:05 Complete Blood Count AUTO DIFF Stat Comprehensive Metabolic Panel Stat Ethanol (ETOH) Stat Test Serum,Qual Stat Thyroid Stimulating Hormone Stat 08/17/21 17:58 COVID19 -Nasal swab/Pre-Proc Stat 08/17/21 19:09 Urinalysis and Microscopic Stat Urine Drug Screen, Rapid Stat 08/17/21 19:12 EKG-12 Lead Routine 08/17/21 21:00 Ethanol (ETOH) Stat 08/17/21 22:30 Ethanol (ETOH) Stat Discontinued Medications Thiamine HCl 100 mg/ Sodium (Chloride) 101 mls @ 404 mls/hr IV NOW ONE Stop: 08/17/21 17:35 Last Infusion: 08/17/21 18:32 Dose: 0 mls/hr Documented by: Admin: 08/17/21 17:49 Dose: 404 mls/hr Documented by: HERNAN Lorazepam (Lorazepam 0.5 Mg Tablet) 1 mg PO NOW ONE Stop: 08/17/21 22:48 Last Admin: 08/17/21 22:52 Dose: 1 mg Documented by: WHITLEY Multivitamins (Multivitamin 1 Tablet) 1 tab PO DAILY ONE Stop: 08/17/21 17:25 Last Admin: 08/17/21 17:49 Dose: 1 tab Documented by: HERNAN Phenobarbital (Phenobarbital 65 Mg/Ml Vial) 260 mg IV NOW ONE Stop: 08/17/21 18:58 Last Admin: 08/17/21 19:37 Dose: 260 mg Documented by: WHITLEY Thiamine HCl (Thiamine 200 Mg/2 Ml Vial) 100 mg IM NOW ONE Stop: 08/17/21 17:24 Last Admin: 08/17/21 18:40 Dose: Not Given Documented by: HERNAN Vital Signs Vital signs: Vital Signs - 8 hr 08/17/21 17:03 08/17/21 18:52 08/17/21 19:00 Temperature 98.4 F Pulse Rate 75 81 79 Respiratory Rate 18 23 17 Blood Pressure 176/104 H 141/82 H Pulse Oximetry 96 94 92 08/17/21 19:30 08/17/21 20:00 08/17/21 20:21 Temperature Pulse Rate 84 74 Respiratory Rate 21 20 18 Blood Pressure 139/66 145/71 H Pulse Oximetry 94 95 97 08/17/21 20:22 08/17/21 20:30 08/17/21 21:00 Temperature Pulse Rate 86 85 Respiratory Rate 19 16 Blood Pressure 157/76 H 169/81 H Pulse Oximetry 98 96 95 08/17/21 21:30 08/17/21 22:00 08/17/21 22:30 Temperature Pulse Rate 73 82 80 Respiratory Rate 0 L 22 20 Blood Pressure 137/70 149/71 H 139/66 Pulse Oximetry 96 94 96 08/17/21 23:00 Temperature Pulse Rate 85 Respiratory Rate 13 Blood Pressure 142/72 H Pulse Oximetry 93 MDM - Alcohol Lab Data Result diagrams: 08/17/21 17:05 08/17/21 17:05 Labs: Lab Results 08/17/21 08/17/21 08/17/21 Range/Units 17:05 17:05 17:05 WBC 4.1 L (4.5-11.0) X10^3/uL RBC 4.30 (4.0-5.2) X10^6/uL Hgb 12.5 (12.0-16.0) g/dL Hct 38.9 (36-46) % MCV 90.4 (80-100) fL MCH 29.1 (26-34) PG MCHC 32.2 (30-36) % RDW 20.0 H (11.6-14.8) % Plt Count 175 (150-400) X10^3/uL Neut % (Auto) 57.6 (50-75) % Lymph % (Auto) 32.4 (25-40) % [place] % (Auto) 9.9 (3-14) % Eos % (Auto) 0.0 L (2-4) % Baso % (Auto) 0.1 (0-2) % Neut # (Auto) 2400 (9396-0856) /uL Lymph # (Auto) 1300 (6870-7193) /uL [place] # (Auto) 400 (0-900) /uL Eos # (Auto) 0 (0-450) /uL Baso # (Auto) 0 (0-100) /uL Sodium 141 (137-145) mmol/L Potassium 4.3 (3.4-5.1) mmol/L Chloride 103 (98-107) mmol/L Carbon Dioxide 27 (22-32) mmol/L BUN 8 (7-17) mg/dL Creatinine 0.62 (0.52-1.04) mg/dL Estimated GFR > 60.0 (>60) mL/min BUN/Creatinine Ratio 12.9 (6-22) Glucose 137 H (70-100) mg/dL Calcium 8.6 (8.4-10.2) mg/dL Total Bilirubin 0.4 (0.2-1.3) mg/dL AST 60 H (14-36) IU/L ALT 33 (<35) IU/L Alkaline Phosphatase 115 (38-126) U/L Total Protein 7.5 (6.3-8.2) g/dL Albumin 4.4 (3.5-5.0) g/dL Globulin 3.1 (1.7-4.1) g/dL Albumin/Globulin Ratio 1.4 (1.0-2.8) TSH (0.47-4.68) uIU/mL Serum , Qual Negative (Negative) Urine Color Urine Appearance Urine pH (4.5-8.0) Ur Specific [place] (1.000-1.035) Urine Protein (Negative) Urine Glucose (UA) (Negative) g/dL Urine Ketones (NEGATIVE) Urine Occult Blood (Negative) Urine Nitrate (Negative) Urine Bilirubin (NEGATIVE) Urine Urobilinogen (0.2) E.U./dL Ur Leukocyte Esterase (NEGATIVE) Urine RBC (0-5/HPF) Urine WBC (0-5/HPF) Ur Squamous Epith Cells (0-5/HPF) Urine Bacteria (None) Ur Culture Indicated? U Opiates 300ng/mL cut (Negative) Ur Oxycodone Screen (Negative) Urine Methadone Screen (Negative) Ur Barbiturates Screen (Negative) U Tricyclic Antidepress (Negative) Ur Phencyclidine Scrn (Negative) Ur Amphetamines Screen (Negative) U Methamphetamines Scrn (Negative) Ur MDMA Scrn (Ecstasy) (Negative) U Benzodiazepines Scrn (Negative) Urine Cocaine Screen (Negative) U Marijuana (THC) Screen (Negative) Ethyl Alcohol 406 H* ( - 10) mg/dL SARS-CoV-2 (PCR) (Negative) 08/17/21 08/17/21 08/17/21 Range/Units 17:05 17:58 19:09 WBC (4.5-11.0) X10^3/uL RBC (4.0-5.2) X10^6/uL Hgb (12.0-16.0) g/dL Hct (36-46) % MCV (80-100) fL MCH (26-34) PG MCHC (30-36) % RDW (11.6-14.8) % Plt Count (150-400) X10^3/uL Neut % (Auto) (50-75) % Lymph % (Auto) (25-40) % [place] % (Auto) (3-14) % Eos % (Auto) (2-4) % Baso % (Auto) (0-2) % Neut # (Auto) (1688-7100) /uL Lymph # (Auto) (6157-4869) /uL [place] # (Auto) (0-900) /uL Eos # (Auto) (0-450) /uL Baso # (Auto) (0-100) /uL Sodium (137-145) mmol/L Potassium (3.4-5.1) mmol/L Chloride (98-107) mmol/L Carbon Dioxide (22-32) mmol/L BUN (7-17) mg/dL Creatinine (0.52-1.04) mg/dL Estimated GFR (>60) mL/min BUN/Creatinine Ratio (6-22) Glucose (70-100) mg/dL Calcium (8.4-10.2) mg/dL Total Bilirubin (0.2-1.3) mg/dL AST (14-36) IU/L ALT (<35) IU/L Alkaline Phosphatase (38-126) U/L Total Protein (6.3-8.2) g/dL Albumin (3.5-5.0) g/dL Globulin (1.7-4.1) g/dL Albumin/Globulin Ratio (1.0-2.8) TSH 2.10 (0.47-4.68) uIU/mL Serum , Qual (Negative) Urine Color Yellow Urine Appearance Clear Urine pH 5.0 (4.5-8.0) Ur Specific [place] <=1.005 (1.000-1.035) Urine Protein Negative (Negative) Urine Glucose (UA) Negative (Negative) g/dL Urine Ketones Negative (NEGATIVE) Urine Occult Blood Negative (Negative) Urine Nitrate Negative (Negative) Urine Bilirubin Negative (NEGATIVE) Urine Urobilinogen 0.2 (0.2) E.U./dL Ur Leukocyte Esterase Negative (NEGATIVE) Urine RBC None seen (0-5/HPF) Urine WBC None seen (0-5/HPF) Ur Squamous Epith Cells None seen (0-5/HPF) Urine Bacteria None seen (None) Ur Culture Indicated? Cult not indicated U Opiates 300ng/mL cut (Negative) Ur Oxycodone Screen (Negative) Urine Methadone Screen (Negative) Ur Barbiturates Screen (Negative) U Tricyclic Antidepress (Negative) Ur Phencyclidine Scrn (Negative) Ur Amphetamines Screen (Negative) U Methamphetamines Scrn (Negative) Ur MDMA Scrn (Ecstasy) (Negative) U Benzodiazepines Scrn (Negative) Urine Cocaine Screen (Negative) U Marijuana (THC) Screen (Negative) Ethyl Alcohol ( - 10) mg/dL SARS-CoV-2 (PCR) Negative (Negative) 08/17/21 08/17/21 08/17/21 Range/Units 19:09 21:00 22:30 WBC (4.5-11.0) X10^3/uL RBC (4.0-5.2) X10^6/uL Hgb (12.0-16.0) g/dL Hct (36-46) % MCV (80-100) fL MCH (26-34) PG MCHC (30-36) % RDW (11.6-14.8) % Plt Count (150-400) X10^3/uL Neut % (Auto) (50-75) % Lymph % (Auto) (25-40) % [place] % (Auto) (3-14) % Eos % (Auto) (2-4) % Baso % (Auto) (0-2) % Neut # (Auto) (8329-6813) /uL Lymph # (Auto) (6688-4689) /uL [place] # (Auto) (0-900) /uL Eos # (Auto) (0-450) /uL Baso # (Auto) (0-100) /uL Sodium (137-145) mmol/L Potassium (3.4-5.1) mmol/L Chloride (98-107) mmol/L Carbon Dioxide (22-32) mmol/L BUN (7-17) mg/dL Creatinine (0.52-1.04) mg/dL Estimated GFR (>60) mL/min BUN/Creatinine Ratio (6-22) Glucose (70-100) mg/dL Calcium (8.4-10.2) mg/dL Total Bilirubin (0.2-1.3) mg/dL AST (14-36) IU/L ALT (<35) IU/L Alkaline Phosphatase (38-126) U/L Total Protein (6.3-8.2) g/dL Albumin (3.5-5.0) g/dL Globulin (1.7-4.1) g/dL Albumin/Globulin Ratio (1.0-2.8) TSH (0.47-4.68) uIU/mL Serum , Qual (Negative) Urine Color Urine Appearance Urine pH (4.5-8.0) Ur Specific [place] (1.000-1.035) Urine Protein (Negative) Urine Glucose (UA) (Negative) g/dL Urine Ketones (NEGATIVE) Urine Occult Blood (Negative) Urine Nitrate (Negative) Urine Bilirubin (NEGATIVE) Urine Urobilinogen (0.2) E.U./dL Ur Leukocyte Esterase (NEGATIVE) Urine RBC (0-5/HPF) Urine WBC (0-5/HPF) Ur Squamous Epith Cells (0-5/HPF) Urine Bacteria (None) Ur Culture Indicated? U Opiates 300ng/mL cut Negative (Negative) Ur Oxycodone Screen Negative (Negative) Urine Methadone Screen Negative (Negative) Ur Barbiturates Screen Negative (Negative) U Tricyclic Antidepress Negative (Negative) Ur Phencyclidine Scrn Negative (Negative) Ur Amphetamines Screen Negative (Negative) U Methamphetamines Scrn Negative (Negative) Ur MDMA Scrn (Ecstasy) Negative (Negative) U Benzodiazepines Scrn Negative (Negative) Urine Cocaine Screen Negative (Negative) U Marijuana (THC) Screen Negative (Negative) Ethyl Alcohol 287 H 242 H ( - 10) mg/dL SARS-CoV-2 (PCR) (Negative) ECG Data Attestation: I personally reviewed and interpreted this ECG as follows: [facility] Narrative Medical decision making narrative: Patient is medically cleared for detox, does have a chronic leukopenia. She was seen by our social security benefits interviewer Patrizia who was able to help assist the patient in finding a bed. She was given phenobarbital here in the department. She had some symptoms of palpitations but her EKG and telemetry monitoring here in the department do not show any cardiac arrhythmias or inappropriate changes. Patient was given 1 additional dose of oral Ativan issues feeling quite anxious later in the evening. Patient accepted at [facility] for alcohol detox. Patient was 406 initially and was rechecked and less than 250. Recontacted and patient okay to send. Discharge Plan Departure Patient Disposition: Xfer Inpatient Rehab Clinical Impression: Alcohol abuse Instructions: DI for Alcohol Use Disorder Activity Restrictions/Additional Instructions: Go directly to the crisis/detox center. Medications will be dispensed by the staff there. Your labs today do not show any major changes. You have a very slight elevation in a single liver enzyme. Prescriptions: No Action levothyroxine 125 mcg tablet 125 mcg PO DAILY Qty: 90 RF: 3 pramipexole 0.5 mg tablet 0.5 mg PO BEDTIME RF: 0 Referrals: Ani Mckeon PA-C [Primary Care Provider] -
[2021-08-17 18:14] LABS: Alanine Aminotransferase 33 IU/L (<35); Albumin 4.4 g/dL (3.5-5.0); Albumin Globulin Ratio 1.4 (1.0-2.8); Alkaline Phosphatase 115 U/L (38-126); Aspartate Aminotransferase 60 IU/L (14-36); BUN Creatinine Ratio 12.9 (6-22); Bilirubin Total 0.4 mg/dL (0.2-1.3); Blood Urea Nitrogen 8 mg/dL (7-17); Calcium 8.6 mg/dL (8.4-10.2); Carbon Dioxide 27 mmol/L (22-32); Chloride 103 mmol/L (98-107); Estimated Glomerular Filt Rate > 60.0 mL/min (>60); Globulin 3.1 g/dL (1.7-4.1); Glucose 137 mg/dL (70-100); HEMOLYSIS < 15 (0-50); Potassium 4.3 mmol/L (3.4-5.1); Sodium 141 mmol/L (137-145); Total Protein 7.5 g/dL (6.3-8.2)
[2021-08-17 18:21] LABS: Add Manual Diff / Slide Review NO; Basophils Absolute Auto 0 /uL (0-100); Basophils Percent Auto 0.1 % (0-2); Eosinophils Absolute Auto 0 /uL (0-450); Hematocrit 38.9 % (36-46); Hemoglobin 12.5 g/dL (12.0-16.0); Lymphocytes Absolute Auto 1300 /uL (1100-4500); Lymphocytes Percent Auto 32.4 % (25-40); Mean Corpuscular HGB Conc 32.2 % (30-36); Mean Corpuscular Hemoglobin 29.1 PG (26-34); Mean Corpuscular Volume 90.4 fL (80-100); Monocytes Absolute Auto 400 /uL (0-900); Monocytes Percent Auto 9.9 % (3-14); Neutrophils Absolute Auto 2400 /uL (1500-7000); Neutrophils Percent Auto 57.6 % (50-75); Platelet Count 175 X10^3/uL (150-400); White Blood Cell Count 4.1 X10^3/uL (4.5-11.0)
[2021-08-17 18:25] LABS: COVID19 -Nasal RAPID Negative (Negative)
[2021-08-17 18:27] LABS: Ethanol (ETOH) 406 mg/dL
[2021-08-17 18:28] LABS: Pregnancy Test Serum,Qual Negative (Negative)
--- NOTE | 2021-08-17 18:47 | PC.NURSE ---
Addendum entered by Buffy Mathew R.N. 08/17/21 18:51: verbal order for EKG from Dr Price. 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 Provider aware.
--- NOTE | 2021-08-17 18:55 | CM.SWNOTE ---
DIESEL LOCOMOTIVE FIRER/FIREMAN Assessment DIESEL LOCOMOTIVE FIRER/FIREMAN - Supervisor Maintenance Assessment DIESEL LOCOMOTIVE FIRER/FIREMAN/Supervisor Maintenance Assessment Time Spent with Patient Start date 08/17/21 Visit Start Time 17:50 End date 08/17/21 Visit End Time 18:25 Total time Care Management spent on 35 patient visit-in minutes Substance Abuse Screening Include Onset, Duration, Intensity Presenting Problem Patient presents to the ED via EMS with concern for ETOH withdrawals seeking detox. Precipitating Event(s) Patient endorses that she drank 6 tall boys today and her last drink was minutes before she arrived to the ED. Patient endorses that she relapsed a few days ago after being sober for 3 months. Patient Strengths Patient is seeking help Current Behavioral Health Provider(s) Patient endorses she sees Include Facility, Provider, Ph. # IVORY Tillman for outpatient at [facility], but has not him in a long time. Ph. # [phone] Family Hx of Behavioral Abuse Patient endorses PTSD witnessing two of her sons attempt or by suicide. Rehab Facilities? ((Date(s), Location(s) Patient endorses that she went ) to inpatient treatment at [facility] in [place], [place] in November 2019. Patient endorses going to [facility] detox a few times. History of Withdrawal? Seizures? Patient has hx of sweats, shaking and chills, and no hx of seizures. Patient currently endorses her heart feels like it is jumping out of her chest. Longest Period of Sobriety 3 months Psychosocial information & Support Patient is 55 y/o female who Systems resides in [place] with her youngest son and a family friend. Patient endorses she has sober supports and has been attending AA meetings via zoom School/Work Patient endorses she just started working at [employer] Concerns Legal Matters - Outstanding Issues None reported Mental Status Orientation (Person/Place/Time) A/Ox4 Stated Mood tired Affect (Congruent with Mood?) anxious/tearful, labile, congruent with mood Thought Content - Specify/Describe None reported Obsessions, Delusions, Hallucinations Thought Processes (Xootaje-Vuikaqln-Nydw coherent Otkmeoet-Uuxroxhv-Hgrstzyiut- Uhkspjokxhbljr-Rolvimy-Yqqlvelkitbt- Thought Blocking) Speech (Pmgtjo-Fmxv-Xgldhgx-Rapid-Soft- slow/normal Loud-Pressured) Motor (Lmtppz-Tzrdzfoll-Nmes-Other) slow/normal, not formally assessed Insight (Kpce-Tfoe-Evwk/Limited) fair/limited Judgement (Ssni-Lzuo-Fszi/Limited) fair/limited Impulse Control (Adequate-Impaired) adequate Memory (Uioplzsdt-Ctntsr-Yasxxm, intact Impaired-Intact) Concentration (Intact-Impaired) intact Attention (Intact-Impaired) intact Behavior (Appropriate-Inappropriate) appropriate Additional Comment Patient is communicative Risk Assessment Suicidal Ideation (Plan) Yes Homicidal Ideation (Plan) No Comment Patient denies HI. Patient endorses fleeting thoughts of SI with no plan. Patient endorses that one of her sons by suicide and another son attempted suicide so she could never end her life. Patient endorses she just wants to escape sometimes . Patient endorses that the fleeting SI thoughts come and go. Intervention Intervention DIESEL LOCOMOTIVE FIRER/FIREMAN enters room to meet with patient. Patient endorses that she has been drinking 6-8 tall boys a day for that past few days when she relapsed. Patient endorses that she had been sober 3 months prior to that, engaging in AA meetings and utilizing her natural supports . Patient endorses she attempted to engage in IOP treatment but was not able to continuing treatment. Patient endorses that she is seeking detox and hoping to address use ETOH use concerns. Patient and DIESEL LOCOMOTIVE FIRER/FIREMAN contact [facility] for intake screening. Patient endorses to DIESEL LOCOMOTIVE FIRER/FIREMAN that she has supports at home but does not want anyone to visit her at this time. At the time of writing this assessment, patient's BAL is 406. ED provider and RN will continue to test patient's levels for medical clearance and d/c to detox. It is the opinion of this DIESEL LOCOMOTIVE FIRER/FIREMAN that patient is appropriate for and will benefit from detox. DIESEL LOCOMOTIVE FIRER/FIREMAN reviews the above with ED provider Dr. Price who indicates agreement and understanding. Plan RA Plan Patient to d/c to detox when medically clear. Patient provides DIESEL LOCOMOTIVE FIRER/FIREMAN with consent to contact her outpatient provider Nikos Saini. DIESEL LOCOMOTIVE FIRER/FIREMAN calls [employer] (Ph. # [phone])and leaves VM regarding patient's indication for further scheduled appts with MH provider and reviews patient's current presentation to the ED. MITESH Fry
[2021-08-17 19:22] LABS: UR Morphine/Opiate cutoff 300 Negative (Negative); Ur Creatinine Normal (Normal); Ur Specific Gravity Normal (Normal); Urine Amphetamines Negative (Negative); Urine Barbiturates Negative (Negative); Urine Benzodiazepines Negative (Negative); Urine Cocaine Negative (Negative); Urine MDMA Negative (Negative); Urine Methadone Negative (Negative); Urine Methamphetamines Negative (Negative); Urine Oxycodone Negative (Negative); Urine Phencyclidine Negative (Negative); Urine Tetrahydrocannabinol Negative (Negative); Urine Tricyclic Antidepressant Negative (Negative); Urine pH Normal (Normal)
[2021-08-17] MEDS: PHENobarbital 65 MG/ML VIAL 260 MG IV (19:37)
[2021-08-17 19:46] LABS: Appearance Urine UA CLEAR; Bilirubin Urine UA NEGATIVE (NEGATIVE); Color Urine UA YELLOW; Glucose Urine UA NEGATIVE (Negative); Ketones Urine UA NEGATIVE (NEGATIVE); Leukocyte Esterase Urine UA NEGATIVE (NEGATIVE); Nitrite Urine UA NEGATIVE (Negative); Occult Blood Urine UA NEGATIVE (Negative); Protein Urine UA NEGATIVE (Negative); Specific Gravity Urine UA <=1.005 (1.000-1.035); Urobilinogen Urine UA 0.2 E.U./dL (0.2)
[2021-08-17 19:54] LABS: Bacteria Urine None Seen; Culture Indicated Urine Cult Not Indicated; RBC Urine None Seen (0-5/HPF); Squamous Epithelial Cell Urine None Seen (0-5/HPF); WBC Urine None Seen (0-5/HPF)
--- NOTE | 2021-08-17 20:21 | PC.NURSE ---
placed patient on 2LNC for low oxygen sats. Patient sleeping on side, snoring. Easily arousal with verbal stimulation
[2021-08-17 21:29] LABS: Ethanol (ETOH) 287 mg/dL
[2021-08-17] MEDS: LORazepam 0.5 MG TABLET 1 MG PO (22:52)
[2021-08-17 23:01] LABS: Ethanol (ETOH) 242 mg/dL
--- NOTE | 2021-08-17 23:39 | PC.NURSE ---
I spoke with [facility] and he was sent current etoh result and current vitals.shahram uribe was awaiting her arrival.
== END 2021-08-17 23:15 ==
PROVIDERS: Emergency Medicine; Emergency Provider Emergency Medicine; PCP Physician Assistant
DX: F10.229 Alcohol dependence with intoxication, unspecified (principal); Y90.8 Blood alcohol level of 240 mg/100 ml or more; Z20.822 Contact with and (suspected) exposure to COVID-19
CPT/HCPCS: 36415; 80053; 80305; 80320; 81001; 84443; 84703; 85025; 87635; 93005; 93010; 96361; 96374; 99285; C9803; J2560

== ENCOUNTER 2021-08-23 19:14 | Emergency (ER) | payer OTHER, MEDICAID, SELFPAY ==
[2021-04-28 02:35] VITALS: BMI 41.9
[2021-08-23 19:20] VITALS: BP 160/72; PULSE 85; RESP 15; TEMP 36.6; O2SAT 96; BMI 40.2
--- NOTE | 2021-08-23 19:37 | CM.SWNOTE ---
FRAMING INSPECTOR Note FRAMING INSPECTOR has been attempting to f/u with patient after recent ED visit and transfer to detox. FRAMING INSPECTOR has been in contact with patient's MH outpatient provider Dr. Nikos Saini (Ph. # [phone]), it is reported that Dr. Saini can arrange to schedule sessions with patient once patient calls to schedule appt. Patient presents to this ED today for concern for her leg bruising and pain from her fall several days ago. Patient endorses that she was discharged from [facility] yesterday. Patient endorses she had a poor experience at Detox and they did not meet her needs as far as administering medication as needed and she thought that she was going to have a longer stay then she did. Patient endorses she has a f/u call with [facility] for IOP and patient endorses she will call Julia in [place] tomorrow. Patient endorses she will call Dr. Saini for MH f/u tomorrow as well. Patient endorses that she is feeling better in regards to her sobriety and she has been clean since last . Patient endorses that her friend dropped her off at the ED because of her concern for her leg bruising and pain for the last 10 days.. Patient endorses that her son is staying with his father in [place] at this time. FRAMING INSPECTOR offers further support and resources and patient endorses that she feels connected with needed resources for MH and SULLY at this time. Plan: Patient to be medically assessed for presentation concern of leg bruising and pain from GLF. FRAMING INSPECTOR to f/u with POC as needed. Patient to f/u with outpatient MH and SULLY providers. MITESH Fry
== END 2021-08-23 19:40 | disposition left against medical advice (07) ==
PROVIDERS: Emergency Provider Emergency Medicine
DX: S89.91XA Unspecified injury of right lower leg, initial encounter (principal); W19.XXXA Unspecified fall, initial encounter
CPT/HCPCS: 99281

== ENCOUNTER 2021-08-24 13:44 | Emergency (ER) | payer OTHER, MEDICAID, SELFPAY ==
[2021-04-28 02:35] VITALS: BMI 41.9
[2021-08-24 13:52] VITALS: BP 164/80; PULSE 88; RESP 14; TEMP 36.1; O2SAT 98; BMI 40.2
--- NOTE | 2021-08-24 13:55 | DI.RAD.S_ITS ---
PROCEDURE: XR TIBIA FUBULA RT 2V INDICATIONS: fall 10 days ago, TECHNIQUE: 2 views of the tibia and fibula were acquired. COMPARISON: [facility], CR, XR TIBIA FIBULA LT 2V, 08/04/2019, 6:50. FINDINGS: Bones: No acute fractures or dislocations. No suspicious bony lesions. A plantar calcaneal enthesophyte is present. Soft tissues: No suspicious soft tissue calcifications or masses. IMPRESSION: No acute osseous abnormality. If clinical suspicion and/or symptoms persist, additional imaging with repeat plain films, or advanced imaging (e.g. CT, MRI) may be helpful for further assessment. Dictated by: Viet Burton M.D. on 08/24/2021 at 14:22 Approved by: Viet Burton M.D. on 08/24/2021 at 14:24
[2021-08-24 15:21] VITALS: BP 145/81; PULSE 78; RESP 18; TEMP 36.6; O2SAT 97
--- NOTE | 2021-08-24 15:50 | ED_ITS ---
HPI - Fall <SOLEDAD Hua - Last Filed: 08/24/21 18:57> General Chief Complaint: Fall Stated Complaint: Fell downstairs, leg is hurting/not looking to hot Time Seen by Provider: 08/24/21 14:16 Source: patient Mode of arrival: Ambulatory History of Present Illness HPI Narrative: 55-year-old female presents to the emergency department with right lower extremity pain after a fall 10 days ago. She states she was walking up stairs, lost her footing, fell down approximately 8 stairs with anterior lower right leg bruising with some swelling. She denies any loss consciousness, she denies any joint pain, she denies any increase of size of her lower right leg compared to her leg. She denies any blood clotting disorders or history of blood clots, she denies calf pain, she denies any blood in her urine, she denies hitting her head, or any other injury. She reports that her leg is not painful, she was just concerned about the bruising. Patient denies any concern for safety at home. Fall from: standing Place fall occurred: home Loss of consciousness: none Severity scale (1-10): 1 Related Data Home Medications Medication Instructions Recorded Confirmed pramipexole 0.5 mg tablet 0.5 mg PO BEDTIME 04/28/21 04/28/21 Previous Rx's Medication Instructions Recorded levothyroxine 125 mcg tablet 125 mcg PO DAILY #90 tab 02/23/20 Allergies Allergy/AdvReac Type Severity Reaction Status Date / Time animal dander [ANIMAL DANDER] Allergy Intermediate ITCHY Verified 08/24/21 13:52 WATERY EYES AND SNEEZING grass pollen AdvReac Intermediate itching Verified 08/24/21 13:52 house dust AdvReac Intermediate itching Verified 08/24/21 13:52 Review of Systems <SOLEDAD Hua - Last Filed: 08/24/21 18:57> Review of Systems Narrative: General: denies fever, chills Head/Neck: denies headache, neck pain Eyes: denies visual changes, eye pain Cardio: denies chest pain, palpitations Respiratory: denies shortness of breath, cough GI: denies abdominal pain, nausea, vomiting, or diarrhea : denies dysuria, hematuria MSK: denies joint pain, muscle weakness, right lower extremity with anterior bruising Skin: denies rash, itching Neuro: denies numbness, tingling Patient History <SOLEDAD Hua - Last Filed: 08/24/21 18:57> Medical History (Updated 08/24/21 @ 15:56 by SOLEDAD Hua) Acquired hypothyroidism (~2016) Alcohol abuse Allergic rhinitis Depression (Unknown) Obstructive sleep apnea Peripheral edema (~2010) Restless leg Varicose veins of both lower extremities with complications (~2010) Surgical History History of Vasu-en-Y gastric bypass History of thyroidectomy Status post breast lumpectomy Status post laparoscopic cholecystectomy Family History Sister Age: 57 History of breast cancer Son Drug overdose Social History marital status: household members: family occupational status: employed Smoking Status: Current every day smoker Tobacco: How many years used: 3 second hand exposure: No alcohol intake: current substance use type: does not use Type(s) of exercise: none Smoking Status: Current every day smoker alcohol intake frequency: 3 or more drinks per day Alcohol type: beer, wine and hard liquor Substance Use Type: does not use Exam <SOLEDAD Hua - Last Filed: 08/24/21 18:57> Narrative Exam Narrative: Independently reviewed vitals signs and nursing notes. General: Awake, alert, nontoxic, no cardiorespiratory distress Head/Neck: Atraumatic, neck full range of motion Eyes: EOMI, conjunctiva normal Nose: nares patent, no rhinorrhea Mouth/Throat: moist mucus membranes, posterior pharynx normal, no oral lesions Cardio: Regular rate and rhythm, no peripheral edema Respiratory: respirations unlabored without wheezing, stridor, or rales. No retractions. GI: Abdomen soft, nontender MSK: Moves all extremities, neurovascularly intact, bilateral DP and PT pulses are 2+, from dorsum of right foot to mid shaft of tibia, moderate amount of ecchymosis and edema on the anterior aspect of her right lower extremity. No generalized edema to either lower extremity, no calf tenderness on palpation, capillary refill is less than 2 seconds on bilateral lower extremities. Skin: Normal capillary refill, no rash Neuro: Normal speech and cognition, normal gait Initial Vital Signs Initial Vital Signs: Vital Signs Temperature 97.0 F L 08/24/21 13:52 Pulse Rate 88 08/24/21 13:52 Respiratory Rate 14 08/24/21 13:52 Blood Pressure 164/80 H 08/24/21 13:52 Pulse Oximetry 98 08/24/21 13:52 <Akshat Mercado DO - Last Filed: 08/24/21 19:06> Initial Vital Signs Initial Vital Signs: Vital Signs Temperature 97.0 F L 08/24/21 13:52 Pulse Rate 88 08/24/21 13:52 Respiratory Rate 14 08/24/21 13:52 Blood Pressure 164/80 H 08/24/21 13:52 Pulse Oximetry 98 08/24/21 13:52 Course <SOLEDAD Hua - Last Filed: 08/24/21 18:57> Orders Ordered: ED Orders 08/24/21 13:55 XR tibia fibula RT 2V Stat Vital Signs Vital signs: Vital Signs - 8 hr 08/24/21 13:52 08/24/21 15:21 08/24/21 16:08 Temperature 97.0 F L 98 F Pulse Rate 88 78 86 Respiratory Rate 14 18 18 Blood Pressure 164/80 H 145/81 H 152/83 H Pulse Oximetry 98 97 97 <Akshat Mercado DO - Last Filed: 08/24/21 19:06> Orders Ordered: ED Orders 08/24/21 13:55 XR tibia fibula RT 2V Stat Vital Signs Vital signs: Vital Signs - 8 hr 08/24/21 13:52 08/24/21 15:21 08/24/21 16:08 Temperature 97.0 F L 98 F Pulse Rate 88 78 86 Respiratory Rate 14 18 18 Blood Pressure 164/80 H 145/81 H 152/83 H Pulse Oximetry 98 97 97 MDM - Fall <SOLEDAD Hua - Last Filed: 08/24/21 18:57> Imaging Data Extremity x-ray #1: Radiologist's Impression: PROCEDURE: XR TIBIA FUBULA RT 2V INDICATIONS: fall 10 days ago, TECHNIQUE: 2 views of the tibia and fibula were acquired. COMPARISON: [facility], CR, XR TIBIA FIBULA LT 2V, 08/04/2019, 6:50. FINDINGS: Bones: No acute fractures or dislocations. No suspicious bony lesions. A plantar calcaneal enthesophyte is present. Soft tissues: No suspicious soft tissue calcifications or masses. IMPRESSION: No acute osseous abnormality. If clinical suspicion and/or symptoms persist, additional imaging with repeat plain films, or advanced imaging (e.g. CT, MRI) may be helpful for further assessment. Dictated by: Viet Burton M.D. on 08/24/2021 at 14:22 Approved by: Viet Burton M.D. on 08/24/2021 at 14:24 MDM Narrative Medical decision making narrative: This is a 55-year-old female presents to the emergency department for ecchymosis of her right lower extremity which she injured during a fall down 8 stairs 10 days ago. She did not lose consciousness, she does not complain of increasing pain to her right lower extremity, she denies numbness or tingling. X-ray of her right tib fib is negative for osseous abnormality including dislocations. This is most likely a contusion which will take some more time to dissipate. It is non fluctuant, I do not think that this is a hematoma. X-ray was negative for suspicious soft tissue masses. She has scattered bruises across the anterior aspect of her right lower extremity and 1 on her upper left back over her scapula. Full range of motion, both areas are without significant pain. Patient denies any concern for safety at home. She has mild edema over the mid shaft of her tibia which is firm and tender to palpation. I encouraged her to use an Milo wrap to help with the contusion, also recommend ice and elevation with Motrin and Tylenol as needed for pain. She understands to follow-up with her primary care provider for follow-up, and to reassess at the end of this week to see if it is starting to get better. She states understanding to return to the emergency department for any new or worsening symptoms, any redness that is tracking upper leg, worsening pain or pain out of proportion, any numbness or tingling to the right lower extremity. Patient is appropriate and amenable to discharge home. Vital signs are stable on repeat examination is unremarkable. Patient has been informed of results. Patient has been given strict return to ER precautions for any new or worsening symptoms. Patient understands to follow up closely with outpatient providers as instructed. Patient understands plan and agrees to discharge home. All questions and concerns answered at this time. Discharge Plan Departure Patient Disposition: Home Clinical Impression: Contusion of leg, right, multiple sites Qualifiers: Encounter type: initial encounter Qualified Code(s): S80.11XA - Contusion of right lower leg, initial encounter Instructions: DI for Contusion Activity Restrictions/Additional Instructions: *You have been diagnosed with a contusion on your right lower leg from your fall. Continue to ice, elevate, and use an Milo wrap every day to help with the swelling. If this is still swollen and painful after 1-2 weeks, please return to the emergency department or see her primary care provider for another evaluation including possible ultrasound. There are no signs of a blood clot at this time, and likely there are no fractures visible on x-ray. Hopefully this continues to heal. *What to do: *Please continue to take your regular medications as directed. [ ] New medication prescriptions sent to your pharmacy: [ ] [ ] New medication written as a paper prescription [x ] No new medications given *Please follow up with your primary care provider in 2-3 days, call for an appointment. Let them know you were seen in the Emergency Department and that we ask that you be seen in follow up. We will electronically transmit a record of today's note if your PCP is in our system *If you do not have a primary care provider please contact the [facility] Resource line at [phone]. They will ask some questions about your medical history and help get you set up with a doctor in the community. *Return to Emergency Department if you should have any new, worsening or concerning symptoms, such as [fever greater than 101F, chills, worsening pain, persistent vomiting or other bothersome symptoms] Prescriptions: No Action levothyroxine 125 mcg tablet 125 mcg PO DAILY Qty: 90 RF: 3 pramipexole 0.5 mg tablet 0.5 mg PO BEDTIME RF: 0 <Akshat Mercado, DO - Last Filed: 08/24/21 19:06> [facility] Deneenature Attestation: Dr Mercado Co-Sign Statement: I was available for consultation during this patient's emergency department visit. This chart is signed by myself for administrative purposes only. I did not have direct contact with this patient during this visit. They were seen independently by the APC.
[2021-08-24 16:08] VITALS: BP 152/83; PULSE 86; RESP 18; O2SAT 97
== END 2021-08-24 16:10 | disposition home or self-care (01) ==
PROVIDERS: Emergency Provider Nurse Practitioner Critical Care Medicine
DX: S80.11XA Contusion of right lower leg, initial encounter (principal); W10.9XXA Fall (on) (from) unspecified stairs and steps, initial encounter
CPT/HCPCS: 73590; 99281; 99283

== ENCOUNTER 2021-09-01 18:14 | Emergency (ER) | payer OTHER, MEDICAID, SELFPAY ==
[2021-04-28 02:35] VITALS: BMI 41.9
[2021-09-01 18:37] VITALS: BP 176/101; PULSE 104; RESP 20; TEMP 37.1; O2SAT 95; BMI 40.2
--- NOTE | 2021-09-01 19:12 | CM.SWNOTE ---
E COMMERCE RETAILER Assessment E COMMERCE RETAILER - [employer] Assessment E COMMERCE RETAILER/Bush [employer] Assessment Time Spent with Patient Start date 09/01/21 Visit Start Time 18:35 End date 09/01/21 Visit End Time 18:50 Total time Care Management spent on 15 patient visit-in minutes Substance Abuse Screening Include Onset, Duration, Intensity Presenting Problem MITESH presents to the ED with concern that she has a bed date today at [facility] and her ride to get to the hospital did not show up. Patient endorses she relapsed on ETOH and is seeking detox. Patient endorses SI, wanting to go to sleep and states It would be easier if I was not here any more. Precipitating Event(s) Patient drank 3 tall boys of ETOH a few hours ago today. Patient is tearful, disappointed in self about relapse and seeking treatment. Patient Strengths Patient is seeking help and wanting to address her ETOH use. Current Behavioral Health Provider(s) Patient sees Nikos Saini LMFT Include Facility, Provider, Ph. # at [facility] but needs to schedule appt with him (Ph. # [phone]) Family Hx of Behavioral Abuse Patient endorses PTSD from witnessing her sons attempt suicide and by suicide. Rehab Facilities? ((Date(s), Location(s) Patient endorses she went to ) inpatient treatment at [facility] in [place], [place] in November 2019. Patient endorses hx of several detox stays at [facility]. History of Withdrawal? Seizures? Patient has hx of sweats, shaking, and chills. No hx of seizures. Longest Period of Sobriety 3 months Psychosocial information & Support Patient is 55 y/o female who Systems resides in [place], [place] with her 17 y/o son and family friend. Patient endorses that son sometimes stays with his father as well. Patient endorses she has sober supports and has attended AA meetings via [email or web address]. School/Work Employed at [employer] Legal Concerns Legal Matters - Outstanding Issues None reported Mental Status Orientation (Person/Place/Time) A/Ox4 Stated Mood same shit different day Affect (Congruent with Mood?) Dysphoric (depressed), full range, congruent with mood. Thought Content - Specify/Describe Patient denies obsessions, Obsessions, Delusions, Hallucinations delusions and hallucinations Thought Processes (Hswjtao-Ljrxodro-Fcbj circumstantial Copbdzty-Oyojicpd-Acijruvsmq- Tqukyolmiecnfp-Sxtqgyp-Zkkydceutzna- Thought Blocking) Speech (Whdyrs-Yxoh-Xbutpes-Rapid-Soft- Soft/slow Loud-Pressured) Motor (Penwwu-Ftzxukjfl-Zhtv-Other) normal, not formally assessed Insight (Ogea-Yebp-Qybn/Limited) fair/limited Judgement (Thyj-Hzne-Ojmz/Limited) fair/limited Impulse Control (Adequate-Impaired) adequate Memory (Ahepoclce-Ibtkit-Gxkmar, intact, not formally assessed Impaired-Intact) Concentration (Intact-Impaired) intact Attention (Intact-Impaired) intact Behavior (Appropriate-Inappropriate) appropriate Additional Comment Patient is calm and communicative Risk Assessment Suicidal Ideation (Plan) Yes Homicidal Ideation (Plan) No Comment Patient denies HI. Patient endorses SI, thoughts of going to sleep and not waking up. Patient denies SI plan. Patient endorses she could not do that to my sons. Patient denies hx of SA. Patient endorses SI is ongoing . Intervention Intervention E COMMERCE RETAILER enters room to meet with patient. Patient is tearful, and presents as defeated and disappointed in self. Patient endorses that she had a bed date for detox today at [facility] and her ride to the hospital did not show up. Patient endorses she called [facility] to set this up. Patient endorses she is in need of detox due to her recent relapse after just leaving detox last week. Patient endorses I hate that I can't quit. E COMMERCE RETAILER endorses that E COMMERCE RETAILER will call [facility] to confirm this plan and discuss transporting patient to [facility]. E COMMERCE RETAILER calls [facility], it is reported that patient does not have a reserved bed but intake can review patient for co-occurring dual diagnosis bed . It is the opinion of this E COMMERCE RETAILER that patient is appropriate for and will benefit from inpatient hospitalization for detox, medication stabilization and safety. E COMMERCE RETAILER reviews the above with ED provider Dr. Garcia who indicates agreement and understanding. Plan RA Plan E COMMERCE RETAILER to seek dual diagnosis detox bed for patient at hospital when medically clear MITESH Fry
[2021-09-01 20:00] LABS: UR Morphine/Opiate cutoff 300 Negative (Negative); Ur Creatinine Normal (Normal); Ur Specific Gravity Normal (Normal); Urine Amphetamines Negative (Negative); Urine Barbiturates Negative (Negative); Urine Benzodiazepines Negative (Negative); Urine Cocaine Negative (Negative); Urine MDMA Negative (Negative); Urine Methadone Negative (Negative); Urine Methamphetamines Negative (Negative); Urine Oxycodone Negative (Negative); Urine Phencyclidine Negative (Negative); Urine Tetrahydrocannabinol Negative (Negative); Urine Tricyclic Antidepressant Negative (Negative); Urine pH Normal (Normal)
--- NOTE | 2021-09-01 20:07 | PC.NURSE ---
Pt reports tremors and intermittent tremors visualized, Dr Garcia notified.
[2021-09-01 20:10] LABS: Add Manual Diff / Slide Review NO; Basophils Absolute Auto 0 /uL (0-100); Basophils Percent Auto 0.5 % (0-2); Eosinophils Absolute Auto 0 /uL (0-450); Hematocrit 39.4 % (36-46); Hemoglobin 12.8 g/dL (12.0-16.0); Lymphocytes Absolute Auto 900 /uL (1100-4500); Lymphocytes Percent Auto 25.6 % (25-40); Mean Corpuscular HGB Conc 32.6 % (30-36); Mean Corpuscular Volume 88.8 fL (80-100); Monocytes Absolute Auto 200 /uL (0-900); Monocytes Percent Auto 6.7 % (3-14); Neutrophils Absolute Auto 2500 /uL (1500-7000); Neutrophils Percent Auto 67.2 % (50-75); Platelet Count 209 X10^3/uL (150-400); Red Blood Cell Count 4.43 X10^6/uL (4.0-5.2); White Blood Cell Count 3.7 X10^3/uL (4.5-11.0)
[2021-09-01 20:16] LABS: Acetaminophen < 10 ug/mL (10-30); Alanine Aminotransferase 29 IU/L (<35); Albumin 4.3 g/dL (3.5-5.0); Albumin Globulin Ratio 1.4 (1.0-2.8); Alkaline Phosphatase 129 U/L (38-126); Aspartate Aminotransferase 48 IU/L (14-36); BUN Creatinine Ratio 10.1 (6-22); Bilirubin Total 0.4 mg/dL (0.2-1.3); Blood Urea Nitrogen 7 mg/dL (7-17); Calcium 8.4 mg/dL (8.4-10.2); Carbon Dioxide 27 mmol/L (22-32); Chloride 100 mmol/L (98-107); Estimated Glomerular Filt Rate > 60.0 mL/min (>60); Globulin 3.1 g/dL (1.7-4.1); Glucose 103 mg/dL (70-100); HEMOLYSIS < 15 (0-50); Potassium 4.3 mmol/L (3.4-5.1); Salicylate < 1.0 mg/dL (<20); Sodium 140 mmol/L (137-145); Total Protein 7.4 g/dL (6.3-8.2)
[2021-09-01 20:26] LABS: Ethanol (ETOH) 346 mg/dL
[2021-09-01] MEDS: PHENobarbital 65 MG/ML VIAL 130 MG IV (20:29)
[2021-09-01 20:30] VITALS: BP 125/59; PULSE 83; RESP 16; O2SAT 94
[2021-09-01 20:42] LABS: COVID19 -Nasal RAPID Negative (Negative)
[2021-09-01 20:43] LABS: Free T4, Direct Thyroxine 0.85 ng/dL (0.78-2.19)
[2021-09-01 20:45] LABS: Anisocytosis 1+
--- NOTE | 2021-09-01 21:39 | ED.PSYCH ---
HPI - Psych <Yessi Garcia DO - Last Filed: 09/03/21 00:30> General Chief Complaint: Psychiatric Symptoms Stated Complaint: DETOX AT [facility],ride never showed, Time Seen by Provider: 09/01/21 20:10 History of Present Illness HPI Narrative: Patient is a 55-year-old female who with history of alcoholism presenting today with wanting detox. She states that she drinks 6 tall boys today she only had 3 today. However she feels shaky she says that her last drink was for previous afternoon. She says that she called [facility] prior to arrival here and they said they had a detox bed waiting for her. She sometimes has suicidal thoughts of a would be better if I just in wake up however she does not have a specific plan. She otherwise has no complaints. Related Data Home Medications Medication Instructions Recorded Confirmed pramipexole 0.5 mg tablet 0.5 mg PO BEDTIME 04/28/21 04/28/21 Previous Rx's Medication Instructions Recorded levothyroxine 125 mcg tablet 125 mcg PO DAILY #90 tab 02/23/20 Allergies Allergy/AdvReac Type Severity Reaction Status Date / Time animal dander [ANIMAL DANDER] Allergy Intermediate ITCHY Verified 08/24/21 13:52 WATERY EYES AND SNEEZING grass pollen AdvReac Intermediate itching Verified 08/24/21 13:52 house dust AdvReac Intermediate itching Verified 08/24/21 13:52 Review of Systems <Yessi Garcia DO - Last Filed: 09/03/21 00:30> Review of Systems Narrative: GENERAL: Denies chills, fatigue, malaise, fever, sweats, travel HEENT: Denies sinus pain, ear pain, sore throat, difficulty swallowing, neck pain RESPIRATORY: Denies dyspnea, cough, wheezing, hemoptysis, sputum. CARDIOVASCULAR: Denies chest pain, palpitations, orthopnea, edema GASTROINTESTINAL: Denies nausea, vomiting, abdominal pain, diarrhea, constipation, melena. : Denies dysuria, frequency, incontinence, hematuria, urinary retention, flank pain. MUSCULOSKELETAL: Denies weakness, joint pain, or bony pain SKIN: No rash, no erythema, no pruritus NEUROLOGIC: Denies weakness, dizziness, headache, numbness, change in speech, confusion PSYCHIATRIC: See HPI 12 point review of systems is negative except for those stated above and HPI Patient History <Yessi Garcia DO - Last Filed: 09/03/21 00:30> Medical History (Updated 09/02/21 @ 15:45 by Jarad Lucas MD) Acquired hypothyroidism (~2016) Alcohol abuse Allergic rhinitis Depression (Unknown) Obstructive sleep apnea Peripheral edema (~2010) Restless leg Varicose veins of both lower extremities with complications (~2010) Surgical History History of Vasu-en-Y gastric bypass History of thyroidectomy Status post breast lumpectomy Status post laparoscopic cholecystectomy Family History Sister Age: 57 History of breast cancer Son Drug overdose Social History marital status: household members: family occupational status: employed Smoking Status: Current every day smoker Tobacco: How many years used: 3 second hand exposure: No alcohol intake: current substance use type: does not use Type(s) of exercise: none Smoking Status: Current every day smoker tobacco type: cigarettes alcohol intake frequency: 3 or more drinks per day Alcohol type: beer, wine and hard liquor Substance Use Type: does not use Exam <Yessi Garcia DO - Last Filed: 09/03/21 00:30> Initial Vital Signs Initial Vital Signs: Vital Signs Temperature 98.7 F 09/01/21 18:37 Pulse Rate 104 H 09/01/21 18:37 Respiratory Rate 20 09/01/21 18:37 Blood Pressure 176/101 H 09/01/21 18:37 Pulse Oximetry 95 09/01/21 18:37 GENERAL: Alert 55-year-old female HEENT: Head atraumatic,EOMI, pupils reactive, face symmetric, moist mucous membranes CARDIOVASCULAR: Regular rate and rhythm without murmurs, rubs or gallops. RESPIRATORY: Breath sounds equal bilaterally, no wheezes rales or rhonchi. ABDOMEN: Soft, nontender. Normoactive bowel sounds all 4 quadrants. No guarding or rebound. EXTREMITIES: Normal range of motion, no clubbing or edema. Neurovascularly intact NEUROLOGICAL: Alert and oriented x4.Normal gait and speech. Minor tremors SKIN: Warm, dry, no laceration, no petechiae, no rashes or lesions. <Jarad Lucas MD - Last Filed: 09/02/21 07:46> Initial Vital Signs Initial Vital Signs: Vital Signs Temperature 98.7 F 09/01/21 18:37 Pulse Rate 104 H 09/01/21 18:37 Respiratory Rate 20 09/01/21 18:37 Blood Pressure 176/101 H 09/01/21 18:37 Pulse Oximetry 95 09/01/21 18:37 Course <Yessi Garcia DO - Last Filed: 09/03/21 00:30> Orders Ordered: Discontinued Medications Loperamide HCl (Loperamide 2 Mg Capsule) 2 mg PO NOW ONE Stop: 09/02/21 13:14 Last Admin: 09/02/21 13:28 Dose: 2 mg Documented by: SUSAN Loperamide HCl (Loperamide 2 Mg Capsule) 2 mg PO NOW ONE Stop: 09/02/21 14:29 Last Admin: 09/02/21 14:30 Dose: 2 mg Documented by: SUSAN Lorazepam (Lorazepam 0.5 Mg Tablet) 2 mg PO NOW ONE Stop: 09/02/21 01:51 Last Admin: 09/02/21 01:55 Dose: 2 mg Documented by: JERSON Lorazepam (Lorazepam 0.5 Mg Tablet) 2 mg PO NOW ONE Stop: 09/02/21 07:24 Last Admin: 09/02/21 07:36 Dose: 2 mg Documented by: PILY Lorazepam (Lorazepam 0.5 Mg Tablet) 2 mg PO Q2HR PRN PRN Reason: Alcohol Withdrawal Last Admin: 09/02/21 14:28 Dose: 2 mg Documented by: Admin: 09/02/21 12:05 Dose: 2 mg Documented by: PILY Phenobarbital (Phenobarbital 65 Mg/Ml Vial) 130 mg IV NOW ONE Stop: 09/01/21 20:11 Last Admin: 09/01/21 20:29 Dose: 130 mg Documented by: JOSEPH Phenobarbital (Phenobarbital 65 Mg/Ml Vial) 130 mg IM NOW ONE Stop: 09/01/21 23:04 Last Admin: 09/01/21 23:31 Dose: 130 mg Documented by: JERSON Vital Signs Vital signs: Vital Signs - 8 hr 09/02/21 00:00 09/02/21 00:30 09/02/21 01:00 Pulse Rate 82 89 87 Respiratory Rate Blood Pressure Pulse Oximetry 95 95 97 09/02/21 01:32 09/02/21 02:00 09/02/21 02:30 Pulse Rate 98 H 82 76 Respiratory Rate 18 13 Blood Pressure 149/82 H Pulse Oximetry 95 96 96 09/02/21 03:00 09/02/21 03:30 09/02/21 03:37 Pulse Rate 81 80 101 H Respiratory Rate 55 H 52 H 28 H Blood Pressure 149/82 H Pulse Oximetry 95 95 96 09/02/21 04:00 09/02/21 04:30 09/02/21 05:00 Pulse Rate 77 79 86 Respiratory Rate 20 23 23 Blood Pressure Pulse Oximetry 95 95 95 09/02/21 05:30 Pulse Rate 75 Respiratory Rate 21 Blood Pressure Pulse Oximetry 96 <Jarad Lucas MD - Last Filed: 09/02/21 07:46> Orders Ordered: Discontinued Medications Loperamide HCl (Loperamide 2 Mg Capsule) 2 mg PO NOW ONE Stop: 09/02/21 13:14 Last Admin: 09/02/21 13:28 Dose: 2 mg Documented by: SUSAN Loperamide HCl (Loperamide 2 Mg Capsule) 2 mg PO NOW ONE Stop: 09/02/21 14:29 Last Admin: 09/02/21 14:30 Dose: 2 mg Documented by: SUSAN Lorazepam (Lorazepam 0.5 Mg Tablet) 2 mg PO NOW ONE Stop: 09/02/21 01:51 Last Admin: 09/02/21 01:55 Dose: 2 mg Documented by: JERSON Lorazepam (Lorazepam 0.5 Mg Tablet) 2 mg PO NOW ONE Stop: 09/02/21 07:24 Last Admin: 09/02/21 07:36 Dose: 2 mg Documented by: PILY Lorazepam (Lorazepam 0.5 Mg Tablet) 2 mg PO Q2HR PRN PRN Reason: Alcohol Withdrawal Last Admin: 09/02/21 14:28 Dose: 2 mg Documented by: Admin: 09/02/21 12:05 Dose: 2 mg Documented by: PILY Phenobarbital (Phenobarbital 65 Mg/Ml Vial) 130 mg IV NOW ONE Stop: 09/01/21 20:11 Last Admin: 09/01/21 20:29 Dose: 130 mg Documented by: JOSEPH Phenobarbital (Phenobarbital 65 Mg/Ml Vial) 130 mg IM NOW ONE Stop: 09/01/21 23:04 Last Admin: 09/01/21 23:31 Dose: 130 mg Documented by: JERSON Vital Signs Vital signs: Vital Signs - 8 hr 09/02/21 00:00 09/02/21 00:30 09/02/21 01:00 Pulse Rate 82 89 87 Respiratory Rate Blood Pressure Pulse Oximetry 95 95 97 09/02/21 01:32 09/02/21 02:00 09/02/21 02:30 Pulse Rate 98 H 82 76 Respiratory Rate 18 13 Blood Pressure 149/82 H Pulse Oximetry 95 96 96 09/02/21 03:00 09/02/21 03:30 09/02/21 03:37 Pulse Rate 81 80 101 H Respiratory Rate 55 H 52 H 28 H Blood Pressure 149/82 H Pulse Oximetry 95 95 96 09/02/21 04:00 09/02/21 04:30 09/02/21 05:00 Pulse Rate 77 79 86 Respiratory Rate 20 23 23 Blood Pressure Pulse Oximetry 95 95 95 09/02/21 05:30 Pulse Rate 75 Respiratory Rate 21 Blood Pressure Pulse Oximetry 96 MDM - Psych <Yessi Garcia DO - Last Filed: 09/03/21 00:30> Lab Data Result diagrams: 09/01/21 19:53 09/01/21 19:53 Labs: Lab Results 09/01/21 09/01/21 09/01/21 Range/Units 19:48 19:53 19:53 WBC 3.7 L (4.5-11.0) X10^3/uL RBC 4.43 (4.0-5.2) X10^6/uL Hgb 12.8 (12.0-16.0) g/dL Hct 39.4 (36-46) % MCV 88.8 (80-100) fL MCH 29.0 (26-34) PG MCHC 32.6 (30-36) % RDW 21.0 H (11.6-14.8) % Plt Count 209 (150-400) X10^3/uL Neut % (Auto) 67.2 (50-75) % Lymph % (Auto) 25.6 (25-40) % Foard % (Auto) 6.7 (3-14) % Eos % (Auto) 0.0 L (2-4) % Baso % (Auto) 0.5 (0-2) % Neut # (Auto) 2500 (1986-1566) /uL Lymph # (Auto) 900 L (7065-2600) /uL Foard # (Auto) 200 (0-900) /uL Eos # (Auto) 0 (0-450) /uL Baso # (Auto) 0 (0-100) /uL RBC Morphology See below Anisocytosis 1+ H Sodium 140 (137-145) mmol/L Potassium 4.3 (3.4-5.1) mmol/L Chloride 100 (98-107) mmol/L Carbon Dioxide 27 (22-32) mmol/L BUN 7 (7-17) mg/dL Creatinine 0.69 (0.52-1.04) mg/dL Estimated GFR > 60.0 (>60) mL/min BUN/Creatinine Ratio 10.1 (6-22) Glucose 103 H (70-100) mg/dL Calcium 8.4 (8.4-10.2) mg/dL Total Bilirubin 0.4 (0.2-1.3) mg/dL AST 48 H (14-36) IU/L ALT 29 (<35) IU/L Alkaline Phosphatase 129 H (38-126) U/L Total Protein 7.4 (6.3-8.2) g/dL Albumin 4.3 (3.5-5.0) g/dL Globulin 3.1 (1.7-4.1) g/dL Albumin/Globulin Ratio 1.4 (1.0-2.8) TSH (0.47-4.68) uIU/mL Free T4 (0.78-2.19) ng/dL Salicylates < 1.0 (<20) mg/dL U Opiates 300ng/mL cut Negative (Negative) Ur Oxycodone Screen Negative (Negative) Urine Methadone Screen Negative (Negative) Acetaminophen < 10 L (10-30) ug/mL Ur Barbiturates Screen Negative (Negative) U Tricyclic Antidepress Negative (Negative) Ur Phencyclidine Scrn Negative (Negative) Ur Amphetamines Screen Negative (Negative) U Methamphetamines Scrn Negative (Negative) Ur MDMA Scrn (Ecstasy) Negative (Negative) U Benzodiazepines Scrn Negative (Negative) Urine Cocaine Screen Negative (Negative) U Marijuana (THC) Screen Negative (Negative) Ethyl Alcohol 346 H ( - 10) mg/dL SARS-CoV-2 (PCR) (Negative) 09/01/21 09/01/21 Range/Units 19:53 20:07 WBC (4.5-11.0) X10^3/uL RBC (4.0-5.2) X10^6/uL Hgb (12.0-16.0) g/dL Hct (36-46) % MCV (80-100) fL MCH (26-34) PG MCHC (30-36) % RDW (11.6-14.8) % Plt Count (150-400) X10^3/uL Neut % (Auto) (50-75) % Lymph % (Auto) (25-40) % Foard % (Auto) (3-14) % Eos % (Auto) (2-4) % Baso % (Auto) (0-2) % Neut # (Auto) (6650-7464) /uL Lymph # (Auto) (8829-0442) /uL Foard # (Auto) (0-900) /uL Eos # (Auto) (0-450) /uL Baso # (Auto) (0-100) /uL RBC Morphology Anisocytosis Sodium (137-145) mmol/L Potassium (3.4-5.1) mmol/L Chloride (98-107) mmol/L Carbon Dioxide (22-32) mmol/L BUN (7-17) mg/dL Creatinine (0.52-1.04) mg/dL Estimated GFR (>60) mL/min BUN/Creatinine Ratio (6-22) Glucose (70-100) mg/dL Calcium (8.4-10.2) mg/dL Total Bilirubin (0.2-1.3) mg/dL AST (14-36) IU/L ALT (<35) IU/L Alkaline Phosphatase (38-126) U/L Total Protein (6.3-8.2) g/dL Albumin (3.5-5.0) g/dL Globulin (1.7-4.1) g/dL Albumin/Globulin Ratio (1.0-2.8) TSH 1.90 (0.47-4.68) uIU/mL Free T4 0.85 (0.78-2.19) ng/dL Salicylates (<20) mg/dL U Opiates 300ng/mL cut (Negative) Ur Oxycodone Screen (Negative) Urine Methadone Screen (Negative) Acetaminophen (10-30) ug/mL Ur Barbiturates Screen (Negative) U Tricyclic Antidepress (Negative) Ur Phencyclidine Scrn (Negative) Ur Amphetamines Screen (Negative) U Methamphetamines Scrn (Negative) Ur MDMA Scrn (Ecstasy) (Negative) U Benzodiazepines Scrn (Negative) Urine Cocaine Screen (Negative) U Marijuana (THC) Screen (Negative) Ethyl Alcohol ( - 10) mg/dL SARS-CoV-2 (PCR) Negative (Negative) Point of Care Testing Test Results Negative Urine Dip Bedside Urine Glucose Negative Bedside Urine Bilirubin - Negative Bedside Urine Ketone - Negative Urine Specific Saline 1.01 Bedside Urine Occult Blood - Negative Bedside Urine pH 6 Bedside Urine Protein - Negative Bedside Urine Urobilinogen - Negative Bedside Urine Nitrite - Negative Bedside Urine Leukocytes - Negative Esterase MDM Narrative Medical decision making narrative: Patient does not have an active plan of suicide. She would like to stop drinking. Multiple places have been called for detox for her. She was given 1 dose of phenobarbital IM. She later states that the phenobarb has worn off time like something else for tremors. She is given a 2nd dose of phenobarbital. Again she states that she does not feel like his phenobarbital is hoping she would like something different. She is given 2 mg of Ativan which does seem to help. She has been accepted at [facility], expected arrival time 4pm Patient signed out to Dr. Lucas <Jarad Lucas MD - Last Filed: 09/02/21 07:46> Lab Data Labs: Lab Results 09/01/21 09/01/21 09/01/21 Range/Units 19:48 19:53 19:53 WBC 3.7 L (4.5-11.0) X10^3/uL RBC 4.43 (4.0-5.2) X10^6/uL Hgb 12.8 (12.0-16.0) g/dL Hct 39.4 (36-46) % MCV 88.8 (80-100) fL MCH 29.0 (26-34) PG MCHC 32.6 (30-36) % RDW 21.0 H (11.6-14.8) % Plt Count 209 (150-400) X10^3/uL Neut % (Auto) 67.2 (50-75) % Lymph % (Auto) 25.6 (25-40) % Foard % (Auto) 6.7 (3-14) % Eos % (Auto) 0.0 L (2-4) % Baso % (Auto) 0.5 (0-2) % Neut # (Auto) 2500 (1942-1620) /uL Lymph # (Auto) 900 L (4173-5337) /uL Foard # (Auto) 200 (0-900) /uL Eos # (Auto) 0 (0-450) /uL Baso # (Auto) 0 (0-100) /uL RBC Morphology See below Anisocytosis 1+ H Sodium 140 (137-145) mmol/L Potassium 4.3 (3.4-5.1) mmol/L Chloride 100 (98-107) mmol/L Carbon Dioxide 27 (22-32) mmol/L BUN 7 (7-17) mg/dL Creatinine 0.69 (0.52-1.04) mg/dL Estimated GFR > 60.0 (>60) mL/min BUN/Creatinine Ratio 10.1 (6-22) Glucose 103 H (70-100) mg/dL Calcium 8.4 (8.4-10.2) mg/dL Total Bilirubin 0.4 (0.2-1.3) mg/dL AST 48 H (14-36) IU/L ALT 29 (<35) IU/L Alkaline Phosphatase 129 H (38-126) U/L Total Protein 7.4 (6.3-8.2) g/dL Albumin 4.3 (3.5-5.0) g/dL Globulin 3.1 (1.7-4.1) g/dL Albumin/Globulin Ratio 1.4 (1.0-2.8) TSH (0.47-4.68) uIU/mL Free T4 (0.78-2.19) ng/dL Salicylates < 1.0 (<20) mg/dL U Opiates 300ng/mL cut Negative (Negative) Ur Oxycodone Screen Negative (Negative) Urine Methadone Screen Negative (Negative) Acetaminophen < 10 L (10-30) ug/mL Ur Barbiturates Screen Negative (Negative) U Tricyclic Antidepress Negative (Negative) Ur Phencyclidine Scrn Negative (Negative) Ur Amphetamines Screen Negative (Negative) U Methamphetamines Scrn Negative (Negative) Ur MDMA Scrn (Ecstasy) Negative (Negative) U Benzodiazepines Scrn Negative (Negative) Urine Cocaine Screen Negative (Negative) U Marijuana (THC) Screen Negative (Negative) Ethyl Alcohol 346 H ( - 10) mg/dL SARS-CoV-2 (PCR) (Negative) 09/01/21 09/01/21 Range/Units 19:53 20:07 WBC (4.5-11.0) X10^3/uL RBC (4.0-5.2) X10^6/uL Hgb (12.0-16.0) g/dL Hct (36-46) % MCV (80-100) fL MCH (26-34) PG MCHC (30-36) % RDW (11.6-14.8) % Plt Count (150-400) X10^3/uL Neut % (Auto) (50-75) % Lymph % (Auto) (25-40) % Foard % (Auto) (3-14) % Eos % (Auto) (2-4) % Baso % (Auto) (0-2) % Neut # (Auto) (6075-6480) /uL Lymph # (Auto) (0974-4563) /uL Foard # (Auto) (0-900) /uL Eos # (Auto) (0-450) /uL Baso # (Auto) (0-100) /uL RBC Morphology Anisocytosis Sodium (137-145) mmol/L Potassium (3.4-5.1) mmol/L Chloride (98-107) mmol/L Carbon Dioxide (22-32) mmol/L BUN (7-17) mg/dL Creatinine (0.52-1.04) mg/dL Estimated GFR (>60) mL/min BUN/Creatinine Ratio (6-22) Glucose (70-100) mg/dL Calcium (8.4-10.2) mg/dL Total Bilirubin (0.2-1.3) mg/dL AST (14-36) IU/L ALT (<35) IU/L Alkaline Phosphatase (38-126) U/L Total Protein (6.3-8.2) g/dL Albumin (3.5-5.0) g/dL Globulin (1.7-4.1) g/dL Albumin/Globulin Ratio (1.0-2.8) TSH 1.90 (0.47-4.68) uIU/mL Free T4 0.85 (0.78-2.19) ng/dL Salicylates (<20) mg/dL U Opiates 300ng/mL cut (Negative) Ur Oxycodone Screen (Negative) Urine Methadone Screen (Negative) Acetaminophen (10-30) ug/mL Ur Barbiturates Screen (Negative) U Tricyclic Antidepress (Negative) Ur Phencyclidine Scrn (Negative) Ur Amphetamines Screen (Negative) U Methamphetamines Scrn (Negative) Ur MDMA Scrn (Ecstasy) (Negative) U Benzodiazepines Scrn (Negative) Urine Cocaine Screen (Negative) U Marijuana (THC) Screen (Negative) Ethyl Alcohol ( - 10) mg/dL SARS-CoV-2 (PCR) Negative (Negative) Point of Care Testing Test Results Negative Urine Dip Bedside Urine Glucose Negative Bedside Urine Bilirubin - Negative Bedside Urine Ketone - Negative Urine Specific Saline 1.01 Bedside Urine Occult Blood - Negative Bedside Urine pH 6 Bedside Urine Protein - Negative Bedside Urine Urobilinogen - Negative Bedside Urine Nitrite - Negative Bedside Urine Leukocytes - Negative Esterase Discharge Plan Departure Patient Disposition: Xfer Psychiatric Hosp Clinical Impression: Alcohol abuse, Suicidal ideation Alcohol withdrawal Qualifiers: Complication of substance-induced condition: uncomplicated Qualified Code(s): F10.230 - Alcohol dependence with withdrawal, uncomplicated
--- NOTE | 2021-09-01 22:02 | PC.NURSE ---
Called [facility] to see if they have beds, states may have beds tomorrow and would be willing to accept a packet.
[2021-09-01 22:16] VITALS: BP 161/89; PULSE 85; RESP 15; O2SAT 93
[2021-09-01] MEDS: PHENobarbital 65 MG/ML VIAL 130 MG IM (23:31)
[2021-09-01 23:40] VITALS: PULSE 98; O2SAT 95
[2021-09-02] VITALS (30 sets, daily range): BP systolic 142–164; BP diastolic 67–104; PULSE 75–117; RESP 12–55; O2SAT 92–98
[2021-09-02] MEDS: LORazepam 0.5 MG TABLET 2 MG PO ×4 (01:55→14:28)
--- NOTE | 2021-09-02 04:01 | PC.NURSE ---
called [facility] back. [facility] now has beds but chart is still being reviewed.
[2021-09-02] MEDS: LOPERAMIDE 2 MG CAPSULE PO ×2 (13:28→14:30)
--- NOTE | 2021-09-02 14:44 | PC.NURSE ---
Addendum entered by Aminta Maravilla R.N. 09/02/21 15:10: Was able to give report to Aung at [facility]. Original Note: Attempting to give report to [facility], been transferred multiple times and so far have been unable to locate nurse taking the patient. Will continue to attempt to give report at a later time.
--- NOTE | 2021-09-02 16:25 | PC.NURSE ---
Pt arrived via [facility] to [facility],when the [facility] crew arrived [facility]cy [place] refused the patient. [facility] told me that the patient was being refused due to her tremors. I called [facility] to find out the details of the refusal. Marcy [facility] informed me that the patient was having difficulty ambulating off of stretcher and had to hold onto mujica. They said they were not informed that the patient was having difficulty with ambulation. I informed them that while she was here the patient ambulated independenlty and was not having to hang onto mujica. marcy [place] instructed [facility] to take the patient to [facility]. I spoke with [facility] again after phone call to [facility] and they confirmed that they were taking the patient to [facility].
== END 2021-09-02 14:35 ==
PROVIDERS: Emergency Provider Emergency Medicine
DX: F10.230 Alcohol dependence with withdrawal, uncomplicated (principal); F10.229 Alcohol dependence with intoxication, unspecified; Y90.8 Blood alcohol level of 240 mg/100 ml or more; R45.851 Suicidal ideations; Z20.822 Contact with and (suspected) exposure to COVID-19
CPT/HCPCS: 36415; 80053; 80305; 80320; 80329; 81003; 81025; 84439; 84443; 85025; 87635; 96372; 96374; 99284; C9803; G0480; J2560

== ENCOUNTER → 2021-12-16 15:48 | Outpatient (CLI) | payer OTHER, MEDICAID, SELFPAY ==
[2021-04-28 02:35] VITALS: BMI 41.9
--- NOTE | 2021-12-16 15:50 | DI.MG.S_ITS ---
BILATERAL DIGITAL SCREENING MAMMOGRAM 3D/2D WITH CAD: 12/16/2021 CLINICAL: Routine screening. Family history of breast cancer. Comparison is made to exams dated: 12/11/2018 mammogram, 07/16/2017 mammogram, and 12/06/2015 mammogram - [facility]. There are scattered fibroglandular elements in both breasts. Current study was also evaluated with a Computer Aided Detection (CAD) system. No significant masses, calcifications, or other findings are seen in either breast. There has been no significant interval change. IMPRESSION: NEGATIVE There is no mammographic evidence of malignancy. A 1 year screening mammogram is recommended. This exam was interpreted at Station ID: [id number]. NOTE: For mammograms, a report in lay terms will be sent to the patient. Approximately 15% of breast malignancies will not be visualized mammographically. In the management of a palpable breast mass, a negative mammogram must not discourage biopsy of a clinically suspicious lesion. Electronically Signed By: Randi [email or web address]:12/16/2021 16:13:33 copy to: Jarad Li letter sent: Normal Exam ACR BI-RADS Category 1: Negative [id number]
== END ==
PROVIDERS: Referring Provider Physician Assistant; Visit Provider Physician Assistant
DX: Z12.31 Encounter for screening mammogram for malignant neoplasm of breast (principal); Z80.3 Family history of malignant neoplasm of breast
CPT/HCPCS: 77063; 77067

== ENCOUNTER → 2022-01-26 16:58 | Outpatient (CLI) | payer OTHER, MEDICAID, SELFPAY ==
[2021-04-28 02:35] VITALS: BMI 41.9
== END ==
PROVIDERS: PCP Internal Medicine; Visit Provider Physician Assistant
DX: J02.9 Acute pharyngitis, unspecified (principal)
CPT/HCPCS: 87070; 87880

== ENCOUNTER → 2022-02-07 15:25 | Outpatient (CLI) | payer OTHER, MEDICAID, SELFPAY ==
[2021-04-28 02:35] VITALS: BMI 41.9
[2022-02-07 16:23] LABS: Add Manual Diff / Slide Review NO; Basophils Absolute Auto 0 /uL (0-100); Basophils Percent Auto 0.3 % (0-2); Eosinophils Absolute Auto 0 /uL (0-450); Hematocrit 36.7 % (36-46); Hemoglobin 12.2 g/dL (12.0-16.0); Lymphocytes Absolute Auto 1400 /uL (1100-4500); Lymphocytes Percent Auto 31.6 % (25-40); Mean Corpuscular HGB Conc 33.2 % (30-36); Mean Corpuscular Hemoglobin 27.2 PG (26-34); Mean Corpuscular Volume 81.8 fL (80-100); Monocytes Absolute Auto 400 /uL (0-900); Monocytes Percent Auto 8.3 % (3-14); Neutrophils Absolute Auto 2600 /uL (1500-7000); Neutrophils Percent Auto 59.8 % (50-75); Platelet Count 180 X10^3/uL (150-400); Red Blood Cell Count 4.49 X10^6/uL (4.0-5.2); Red Cell Distribution Width 16.1 % (11.6-14.8); White Blood Cell Count 4.4 X10^3/uL (4.5-11.0)
[2022-02-07 16:56] LABS: Alanine Aminotransferase 17 IU/L (<35); Albumin 4.3 g/dL (3.5-5.0); Albumin Globulin Ratio 1.4 (1.0-2.8); Alkaline Phosphatase 109 U/L (38-126); Aspartate Aminotransferase 24 IU/L (14-36); BUN Creatinine Ratio 23.3 (6-22); Bilirubin Total 0.2 mg/dL (0.2-1.3); Blood Urea Nitrogen 17 mg/dL (7-17); C-Reactive Protein Quant < 0.5 mg/dL (<1.0); Calcium 8.7 mg/dL (8.4-10.2); Carbon Dioxide 28 mmol/L (22-32); Chloride 106 mmol/L (98-107); Creatine Kinase 27 U/L (30-135); Estimated Glomerular Filt Rate > 60.0 mL/min (>60); Globulin 3.1 g/dL (1.7-4.1); Glucose 85 mg/dL (70-100); HEMOLYSIS < 15 (0-50); Potassium 3.8 mmol/L (3.4-5.1); Sodium 142 mmol/L (137-145); Total Protein 7.4 g/dL (6.3-8.2)
[2022-02-07 17:05] LABS: Erythrocyte Sedimentation Rate 15 MM/HR (0-20)
[2022-02-07 17:45] LABS: TSH w/ Reflex to FT4 1.39 uIU/mL (0.47-4.68)
== END ==
PROVIDERS: PCP Internal Medicine; Referring Provider Internal Medicine; Visit Provider Internal Medicine
DX: M25.50 Pain in unspecified joint (principal); E03.9 Hypothyroidism, unspecified
CPT/HCPCS: 36415; 80053; 82550; 84443; 85025; 85651; 86140

== ENCOUNTER → 2022-04-20 16:29 | Outpatient (CLI) | payer OTHER, MEDICAID, SELFPAY ==
[2021-04-28 02:35] VITALS: BMI 41.9
--- NOTE | 2022-04-20 16:32 | DI.RAD.S_ITS ---
PROCEDURE: XR CHEST 2V INDICATIONS: Cough TECHNIQUE: 2 views of the chest were acquired. COMPARISON: [facility], CR, XR CHEST 1V, 04/29/2021, 19:59. [facility], CR, XR CHEST 2V, 04/27/2021, 21:44. FINDINGS: Surgical changes and devices: Cholecystectomy clips. Lungs and pleura: Lungs are clear. No pleural effusions or pneumothorax. Mediastinum: Mediastinal contours are normal. Heart size is normal. Bones and chest wall: No suspicious bony abnormalities. Soft tissues appear unremarkable. IMPRESSION: No acute cardiopulmonary abnormality. Dictated by: Jono Herrera M.D. on 04/20/2022 at 17:05 Approved by: Jono Herrera M.D. on 04/20/2022 at 17:06
== END ==
PROVIDERS: PCP Internal Medicine; Referring Provider Nurse Practitioner Family; Visit Provider Nurse Practitioner Family
DX: R05.9 Cough, unspecified (principal)
CPT/HCPCS: 71046

== ENCOUNTER 2022-06-24 07:46 | Emergency (ER) | payer OTHER, MEDICAID, SELFPAY ==
[2021-04-28 02:35] VITALS: BMI 41.9
[2022-06-24] VITALS (34 sets, daily range): BP systolic 97–147; BP diastolic 73–99; PULSE 60–130; RESP 12–23; TEMP 36.9; O2SAT 95–100; BMI 33.2
--- NOTE | 2022-06-24 07:54 | ED_ITS ---
HPI - Chest Pain General Chief Complaint: Chest Pain Stated Complaint: irreuglar heartbeat Time Seen by Provider: 06/24/22 07:48 History of Present Illness HPI narrative: 56-year-old female smoker with former alcohol history, as well as prior palpitations, hypokalemia and AFib (aspirin only) presents with a sensation of palpitations upon waking today. She denies any chest pain or shortness of breath. She states that she was feeling fine when she went to bed. She denies any change in medications or diet. She is had no fever or chills. She is not dizzy nor weak or lightheaded. She denies runny nose, sore throat or cough. She is had no nausea, vomiting or diarrhea. Related Data Previous Rx's Medication Instructions Recorded levothyroxine 125 mcg tablet 125 mcg PO DAILY #90 tabs 02/23/20 mirtazapine 15 mg tablet 15 mg PO BEDTIME #30 tabs 02/07/22 pramipexole 0.5 mg tablet 0.5 mg PO BEDTIME restless leg #90 02/07/22 tabs fluticasone propionate 50 2 spray intranasal DAILY PRN 04/10/22 mcg/actuation nasal allergy symptoms #16 grams spray,suspension (Allergy Relief (fluticasone)) albuterol sulfate 90 mcg/actuation 2 puff inhalation Q6H PRN 04/20/22 aerosol inhaler shortness of breath or wheezing #6.7 grams benzonatate 100 mg capsule 100 mg PO BID PRN cough #20 caps 04/20/22 apixaban 5 mg tablet (Eliquis) 5 mg PO BID #60 tabs 06/24/22 metoprolol succinate 25 mg 25 mg PO DAILY #30 tabs 06/24/22 tablet,extended release 24 hr Allergies Allergy/AdvReac Type Severity Reaction Status Date / Time animal dander [ANIMAL DANDER] Allergy Intermediate ITCHY Verified 04/20/22 16:16 WATERY EYES AND SNEEZING grass pollen AdvReac Intermediate itching Verified 04/20/22 16:16 house dust AdvReac Intermediate itching Verified 04/20/22 16:16 Review of Systems Review of Systems Narrative: GENERAL: Denies chills, fatigue, malaise, fever, sweats. HEENT: Denies sinus pain, ear pain, sore throat, difficulty swallowing, dizziness. RESPIRATORY: Denies dyspnea, cough, wheezing, hemoptysis, sputum. CARDIOVASCULAR: See HP GASTROINTESTINAL: Denies nausea, vomiting, abdominal pain, diarrhea, constipation, melena. : Denies dysuria, frequency, incontinence, hematuria, urinary retention. MUSCULOSKELETAL: denies weakness, joint pain, or bony pain SKIN: Denies rash, skin lesions, or other NEUROLOGIC: Denies weakness, headache, numbness, change in speech, confusion, seizures, incoordination. PSYCHIATRIC: No concerning psychosocial issues. 12 point review of systems is negative except for those stated above Patient History Medical History (Updated 06/24/22 @ 11:24 by Willie Miller DO) Acquired hypothyroidism (~2016) Alcohol abuse Allergic rhinitis Depression (Unknown) Obstructive sleep apnea Peripheral edema (~2010) Restless leg Varicose veins of both lower extremities with complications (~2010) Surgical History History of Vasu-en-Y gastric bypass History of thyroidectomy Status post breast lumpectomy Status post laparoscopic cholecystectomy Family History Sister Age: 58 History of breast cancer Son Drug overdose Social History marital status: household members: family occupational status: employed Smoking Status: Current every day smoker Tobacco: How many years used: 3 second hand exposure: No alcohol intake: current substance use type: does not use Type(s) of exercise: none Smoking Status: Current every day smoker tobacco type: cigarettes alcohol intake frequency: 3 or more drinks per day Alcohol type: beer, wine and hard liquor Substance Use Type: does not use Exam Narrative Exam Narrative: GENERAL: [56] year old patient appears stated age. Well-developed patient, in mild distress. HEAD: Atraumatic. Normocephalic. EYES: Pupils equal round and reactive. Extraocular motions intact. No scleral icterus. No injection or drainage. ENT: Nose without bleeding, purulent drainage. Throat without erythema, tonsillar hypertrophy or exudate. Airway patent. NECK: Trachea midline. Non tender CARDIOVASCULAR: Tachycardic and irregular rhythm without murmurs, gallops, or rubs. RESPIRATORY: Decreased breath sounds with prolonged expiratory phase and expiratory wheeze GASTROINTESTINAL: Abdomen soft, non-tender, nondistended. EXTREMITIES: No edema or joint tenderness. BACK: Nontender without deformity or crepitance. No flank tenderness. NEURO: AOx3. SKIN: No rash or erythema of visible areas Initial Vital Signs Initial Vital Signs: Vital Signs Pulse Rate 106 H 06/24/22 07:51 Blood Pressure 127/98 H 06/24/22 07:51 Pulse Oximetry 99 06/24/22 07:51 Procedures Cardioversion Consent Signed: Yes Indication: rapid atrial fib Stability: Stable Number of attempts (shocks): 1 Joules used: 120 Additional Comments: Patient asymptomatic after procedures. Extensive discussion with patient regarding risk and benefit, consent signed. Scores CHADS-VASc Congestive heart failure: no Hypertension: no Age 75 years or older: no Diabetes mellitus: no Stroke, TIA, or TE: no Vascular disease: no Age 65 to 74 years: no Sex category (female): Female CHADS-VASc Score: 1 Course Orders Ordered: Discontinued Medications Sodium Chloride (Normal Saline 0.9%) 1,000 mls @ 125 mls/hr IV CONT SHARON Last Infusion: 06/24/22 11:16 Dose: 0 mls/hr Documented By: Infusion: 06/24/22 11:16 Dose: 0 mls/hr Documented By: Admin: 06/24/22 08:39 Dose: 125 mls/hr Documented By: SARA Metoprolol Tartrate (Metoprolol Tartrate 5 Mg/5 Ml Inj) 5 mg IV NOW ONE Stop: 06/24/22 08:23 Last Admin: 06/24/22 08:39 Dose: 5 mg Documented By: SARA Propofol (Propofol 200 Mg/20 Ml Vial) 95 mg 1 mg/kg (95 mg) IV NOW ONE Stop: 06/24/22 09:08 Last Admin: 06/24/22 10:38 Dose: 60 mg Documented By: FRANCY Vital Signs Vital signs: Vital Signs - 8 hr 06/24/22 07:59 06/24/22 07:51 06/24/22 07:51 Temperature 98.4 F Pulse Rate 115 H 106 H Respiratory Rate 18 Blood Pressure 127/98 H 127/98 H Pulse Oximetry 99 99 Oxygen Delivery Method Room Air 06/24/22 07:58 06/24/22 07:58 06/24/22 08:00 Temperature Pulse Rate 113 H 118 H Respiratory Rate 14 14 Blood Pressure 147/89 H Pulse Oximetry 98 98 Oxygen Delivery Method 06/24/22 08:01 06/24/22 08:01 06/24/22 08:30 Temperature Pulse Rate 130 H Respiratory Rate 15 Blood Pressure 141/99 H 130/86 Pulse Oximetry 97 Oxygen Delivery Method 06/24/22 08:30 06/24/22 08:45 06/24/22 08:45 Temperature Pulse Rate 101 H 96 H Respiratory Rate 14 14 Blood Pressure 119/86 Pulse Oximetry 98 96 Oxygen Delivery Method 06/24/22 09:00 06/24/22 09:00 06/24/22 09:15 Temperature Pulse Rate 95 H Respiratory Rate 17 Blood Pressure 112/85 97/80 Pulse Oximetry 97 Oxygen Delivery Method 06/24/22 09:15 06/24/22 09:30 06/24/22 09:31 Temperature Pulse Rate 94 H 100 H Respiratory Rate 19 20 Blood Pressure 130/73 Pulse Oximetry 98 99 Oxygen Delivery Method 06/24/22 09:31 06/24/22 10:31 06/24/22 10:00 Temperature Pulse Rate 101 H 97 H Respiratory Rate 20 16 Blood Pressure 131/83 Pulse Oximetry 99 100 Oxygen Delivery Method 06/24/22 10:05 06/24/22 10:10 06/24/22 10:15 Temperature Pulse Rate 94 H 109 H 95 H Respiratory Rate 19 14 Blood Pressure Pulse Oximetry 100 100 100 Oxygen Delivery Method 06/24/22 10:20 06/24/22 10:25 06/24/22 10:30 Temperature Pulse Rate 91 H 103 H Respiratory Rate 12 Blood Pressure 131/83 Pulse Oximetry 100 100 Oxygen Delivery Method 06/24/22 10:30 06/24/22 10:35 06/24/22 10:35 Temperature Pulse Rate 90 90 Respiratory Rate 12 13 Blood Pressure 118/86 Pulse Oximetry 99 99 Oxygen Delivery Method 06/24/22 10:40 06/24/22 10:40 06/24/22 10:45 Temperature Pulse Rate 77 Respiratory Rate 21 Blood Pressure 115/80 116/77 Pulse Oximetry 95 Oxygen Delivery Method 06/24/22 10:45 06/24/22 10:50 06/24/22 10:49 Temperature Pulse Rate 66 87 62 Respiratory Rate 19 14 15 Blood Pressure Pulse Oximetry 96 98 Oxygen Delivery Method 06/24/22 10:50 06/24/22 10:50 06/24/22 10:54 Temperature Pulse Rate 62 60 Respiratory Rate 15 15 Blood Pressure 107/75 Pulse Oximetry 97 98 Oxygen Delivery Method 06/24/22 10:55 06/24/22 10:55 06/24/22 10:59 Temperature Pulse Rate 62 61 Respiratory Rate 15 20 Blood Pressure 106/74 Pulse Oximetry 97 99 Oxygen Delivery Method 06/24/22 11:00 06/24/22 11:00 06/24/22 11:04 Temperature Pulse Rate 62 64 Respiratory Rate 23 23 Blood Pressure 110/73 Pulse Oximetry 98 98 Oxygen Delivery Method 06/24/22 11:05 06/24/22 11:05 06/24/22 11:08 Temperature Pulse Rate 63 64 Respiratory Rate 16 19 Blood Pressure 112/79 Pulse Oximetry 98 97 Oxygen Delivery Method 06/24/22 11:08 06/24/22 11:10 Temperature Pulse Rate 63 Respiratory Rate 15 Blood Pressure 114/74 Pulse Oximetry 97 Oxygen Delivery Method MDM - Chest Pain Lab Data Result diagrams: 06/24/22 08:30 06/24/22 08:30 Labs: Lab Results 06/24/22 06/24/22 06/24/22 Range/Units 08:30 08:30 08:30 WBC 4.8 (4.5-11.0) X10^3/uL RBC 4.63 (4.0-5.2) X10^6/uL Hgb 12.7 (12.0-16.0) g/dL Hct 38.0 (36-46) % MCV 82.2 (80-100) fL MCH 27.5 (26-34) PG MCHC 33.4 (30-36) % RDW 18.2 H (11.6-14.8) % Plt Count 183 (150-400) X10^3/uL Neut % (Auto) 64.1 (50-75) % Lymph % (Auto) 27.7 (25-40) % Stephenson % (Auto) 7.8 (3-14) % Eos % (Auto) 0.0 L (2-4) % Baso % (Auto) 0.4 (0-2) % Neut # (Auto) 3100 (6996-7854) /uL Lymph # (Auto) 1300 (1057-4496) /uL Stephenson # (Auto) 400 (0-900) /uL Eos # (Auto) 0 (0-450) /uL Baso # (Auto) 0 (0-100) /uL Sodium 141 (137-145) mmol/L Potassium 4.2 (3.4-5.1) mmol/L Chloride 107 (98-107) mmol/L Carbon Dioxide 28 (22-32) mmol/L BUN 13 (7-17) mg/dL Creatinine 0.68 (0.52-1.04) mg/dL Estimated GFR > 60 (>60) mL/min BUN/Creatinine Ratio 19.1 (6-22) Glucose 99 (70-100) mg/dL Calcium 8.7 (8.4-10.2) mg/dL Magnesium 1.7 (1.6-2.3) mg/dL Total Bilirubin 0.4 (0.2-1.3) mg/dL AST 20 (14-36) IU/L ALT 22 (<35) IU/L Alkaline Phosphatase 93 (38-126) U/L Total Protein 6.8 (6.3-8.2) g/dL Albumin 3.8 (3.5-5.0) g/dL Globulin 3.0 (1.7-4.1) g/dL Albumin/Globulin Ratio 1.3 (1.0-2.8) SARS-CoV-2 (PCR) Negative (Negative) Point of Care Testing Test Results Not applicable Urine Dip Bedside Urine Glucose Negative Bedside Urine Bilirubin - Negative Bedside Urine Ketone - Negative Urine Specific [place] 1.015 Bedside Urine Occult Blood - Negative Bedside Urine pH 6.0 Bedside Urine Protein +/- 15 Bedside Urine Nitrite - Negative Bedside Urine Leukocytes - Negative Esterase ECG Data Interpretation: 0805 EKG is rapid atrial fibrillation with rate of 115 and free of any signs of ischemia. No ST segmental elevation or depression. No T wave inversions Discharge Plan Departure Patient Disposition: Home Clinical Impression: Atrial fib/flutter, transient Instructions: DI for Atrial Fibrillation Activity Restrictions/Additional Instructions: *You have been diagnosed with [atrial fibrillation with electrocardioversion] *What to do: *Please continue to take your regular medications as directed. [x ] New medication prescriptions sent to your pharmacy: [[facility] ] [ ] New medication written as a paper prescription [ ] No new medications given *Please follow up with your primary care provider in 2-3 days, call for an appointment. Let them know you were seen in the Emergency Department and that we ask that you be seen in follow up. We will electronically transmit a record of today's note if your PCP is in our system * also as we discussed, we traditionally would have you follow-up with cardiology, their contact info is also listed below, please call, let them know you were in the emergency department and we would like you seen in follow-up *Return to Emergency Department if you should have any new, worsening or concerning symptoms, such as [fever greater than 101 F, shaking chills, worsening pain, persistent vomiting or other bothersome symptoms] Prescriptions: New Eliquis 5 mg tablet 5 mg PO BID Qty: 60 0RF metoprolol succinate 25 mg tablet extended release 24 hr 25 mg PO DAILY Qty: 30 0RF No Action benzonatate 100 mg capsule 100 mg PO BID PRN (Reason: cough) Qty: 20 0RF albuterol sulfate 90 mcg/actuation HFA aerosol inhaler 2 puff inhalation Q6H PRN (Reason: shortness of breath or wheezing) Qty: 6.7 0RF levothyroxine 125 mcg tablet 125 mcg PO DAILY Qty: 90 3RF Label Comments: states has not taken for a long time fluticasone propionate [Allergy Relief (fluticasone)] 50 mcg/actuation spray,suspension 2 spray intranasal DAILY PRN (Reason: allergy symptoms) Qty: 16 6RF Rx Instructions: administer into each nostril mirtazapine 15 mg tablet 15 mg PO BEDTIME Qty: 30 3RF pramipexole 0.5 mg tablet 0.5 mg PO BEDTIME Qty: 90 0RF Referrals: Jesse Jain MD [Primary Care Provider] - Nathan Chambers MD [Physician] - Visit Report Forms: Patient Portal/API
[2022-06-24 08:39] LABS: Add Manual Diff / Slide Review NO; Basophils Absolute Auto 0 /uL (0-100); Basophils Percent Auto 0.4 % (0-2); Eosinophils Absolute Auto 0 /uL (0-450); Hemoglobin 12.7 g/dL (12.0-16.0); Lymphocytes Absolute Auto 1300 /uL (1100-4500); Lymphocytes Percent Auto 27.7 % (25-40); Mean Corpuscular HGB Conc 33.4 % (30-36); Mean Corpuscular Hemoglobin 27.5 PG (26-34); Mean Corpuscular Volume 82.2 fL (80-100); Monocytes Absolute Auto 400 /uL (0-900); Monocytes Percent Auto 7.8 % (3-14); Neutrophils Absolute Auto 3100 /uL (1500-7000); Neutrophils Percent Auto 64.1 % (50-75); Platelet Count 183 X10^3/uL (150-400); Red Blood Cell Count 4.63 X10^6/uL (4.0-5.2); Red Cell Distribution Width 18.2 % (11.6-14.8); White Blood Cell Count 4.8 X10^3/uL (4.5-11.0)
[2022-06-24] MEDS: SODIUM CHLORIDE 0.9% 1,000 ML 125 ML IV (08:39)
[2022-06-24] MEDS: METOPROLOL TARTRATE 5 MG/5 ML INJ IV (08:39)
[2022-06-24 08:56] LABS: Alanine Aminotransferase 22 IU/L (<35); Albumin 3.8 g/dL (3.5-5.0); Albumin Globulin Ratio 1.3 (1.0-2.8); Alkaline Phosphatase 93 U/L (38-126); Aspartate Aminotransferase 20 IU/L (14-36); BUN Creatinine Ratio 19.1 (6-22); Bilirubin Total 0.4 mg/dL (0.2-1.3); Blood Urea Nitrogen 13 mg/dL (7-17); Calcium 8.7 mg/dL (8.4-10.2); Carbon Dioxide 28 mmol/L (22-32); Chloride 107 mmol/L (98-107); Estimated Glomerular Filt Rate > 60 mL/min (>60); Glucose 99 mg/dL (70-100); HEMOLYSIS < 15 (0-50); Magnesium 1.7 mg/dL (1.6-2.3); Potassium 4.2 mmol/L (3.4-5.1); Sodium 141 mmol/L (137-145); Total Protein 6.8 g/dL (6.3-8.2)
[2022-06-24 09:12] LABS: COVID19 -Nasal RAPID Negative (Negative)
[2022-06-24] MEDS: propofoL 200 MG/20 ML VIAL 95 MG IV (10:38)
== END 2022-06-24 11:35 | disposition home or self-care (01) ==
PROVIDERS: Emergency Provider Emergency Medicine; PCP Internal Medicine
DX: I48.91 Unspecified atrial fibrillation (principal); Z20.822 Contact with and (suspected) exposure to COVID-19
CPT/HCPCS: 36415; 80053; 81003; 83735; 85025; 87635; 92960; 93005; 93010; 96361; 96374; 99152; 99153; 99284; 99285; 99291; C9803; J2704

== ENCOUNTER 2022-06-27 11:46 | Emergency (ER) | payer OTHER, MEDICAID, SELFPAY ==
[2021-04-28 02:35] VITALS: BMI 41.9
[2022-06-27 11:51] VITALS: BP 142/85; PULSE 71; RESP 14; TEMP 35.7; O2SAT 100; BMI 38.7
--- NOTE | 2022-06-27 11:54 | DI.RAD.S_ITS ---
PROCEDURE: XR CHEST 1V INDICATIONS: chest pain TECHNIQUE: One view of the chest was acquired. COMPARISON: [facility], CR, XR CHEST 2V, 04/20/2022, 16:24. FINDINGS: Surgical changes and devices: None. Lungs and pleura: Lungs are clear. No pleural effusions or pneumothorax. Mediastinum: Mediastinal contours appear normal. Heart size is normal. Bones and chest wall: No suspicious bony lesions. Overlying soft tissues appear unremarkable. IMPRESSION: No evidence acute pulmonary process. Dictated by: Jude Mora M.D. on 06/27/2022 at 13:32 Approved by: Jude Mora M.D. on 06/27/2022 at 13:32
[2022-06-27 12:29] LABS: Add Manual Diff / Slide Review NO; Basophils Absolute Auto 0 /uL (0-100); Basophils Percent Auto 0.4 % (0-2); Eosinophils Absolute Auto 0 /uL (0-450); Hematocrit 37.4 % (36-46); Hemoglobin 12.5 g/dL (12.0-16.0); Lymphocytes Absolute Auto 1300 /uL (1100-4500); Lymphocytes Percent Auto 28.2 % (25-40); Mean Corpuscular HGB Conc 33.5 % (30-36); Mean Corpuscular Hemoglobin 27.7 PG (26-34); Mean Corpuscular Volume 82.6 fL (80-100); Monocytes Absolute Auto 300 /uL (0-900); Monocytes Percent Auto 7.3 % (3-14); Neutrophils Absolute Auto 3000 /uL (1500-7000); Neutrophils Percent Auto 64.1 % (50-75); Platelet Count 191 X10^3/uL (150-400); Red Blood Cell Count 4.53 X10^6/uL (4.0-5.2); Red Cell Distribution Width 18.4 % (11.6-14.8); White Blood Cell Count 4.7 X10^3/uL (4.5-11.0)
[2022-06-27 12:43] LABS: INR 1.1 (0.9-1.3); Prothrombin Time 12.5 SECONDS (10.1-12.7)
[2022-06-27 12:45] LABS: PTT Partial Thromboplastin Tim 32 SECONDS (26-36)
[2022-06-27 12:47] LABS: Alanine Aminotransferase 22 IU/L (<35); Albumin 4.1 g/dL (3.5-5.0); Albumin Globulin Ratio 1.3 (1.0-2.8); Alkaline Phosphatase 96 U/L (38-126); Aspartate Aminotransferase 22 IU/L (14-36); BUN Creatinine Ratio 17.1 (6-22); Bilirubin Total 0.3 mg/dL (0.2-1.3); Blood Urea Nitrogen 13 mg/dL (7-17); Calcium 8.4 mg/dL (8.4-10.2); Carbon Dioxide 31 mmol/L (22-32); Chloride 102 mmol/L (98-107); Creatine Kinase 28 U/L (30-135); Estimated Glomerular Filt Rate > 60 mL/min (>60); Globulin 3.2 g/dL (1.7-4.1); Glucose 94 mg/dL (70-100); HEMOLYSIS < 15 (0-50); Lipase 105 U/L (23-300); Magnesium 1.8 mg/dL (1.6-2.3); Potassium 3.8 mmol/L (3.4-5.1); Sodium 138 mmol/L (137-145); Total Protein 7.3 g/dL (6.3-8.2)
[2022-06-27 12:58] LABS: Troponin I < 0.012 ng/mL (0.01-0.034)
--- NOTE | 2022-06-27 14:39 | ED.ARRPALP ---
HPI - Arrhythmia/Palpitations General Chief Complaint: Arrhythmia/Palpitations Stated Complaint: hearts acting weird again Time Seen by Provider: 06/27/22 14:07 Source: patient Mode of arrival: Ambulatory Limitations: no limitations History of Present Illness HPI narrative: This is a 56-year-old female smoker with former alcohol history sober times 10 months, rheumatoid arthritis, paroxysmal atrial fibrillation, restless leg and hypothyroidism and cardioversion 2 days ago here in the emergency department for AFib RVR who presents with sensation of palpation today. Patient was started on metoprolol and Eliquis 2 days ago she states she started these medications since then she has had occasional sensation of missed beat, she states it has not been as persistent or bouncing around like it was before it is just occasional and not persistent. She denies syncope she is felt a little bit lightheaded no chest pain or pressure, no shortness of breath, no new swelling in her extremities, no nausea or vomiting. No other GI or urinary symptoms. She states in 2019 her episode of AFib was thought to be secondary to hypokalemia. Patient states she is had cholecystectomy and gastric bypass surgery in 2018. No known drug allergy. She does use tobacco, states stop using alcohol 10 months ago, no illicit. Her primary care is Dr. Jain. She states she has had a Holter monitor but it has been many years ago. Related Data Previous Rx's Medication Instructions Recorded levothyroxine 125 mcg tablet 125 mcg PO DAILY #90 tabs 02/23/20 mirtazapine 15 mg tablet 15 mg PO BEDTIME #30 tabs 02/07/22 pramipexole 0.5 mg tablet 0.5 mg PO BEDTIME restless leg #90 02/07/22 tabs fluticasone propionate 50 2 spray intranasal DAILY PRN 04/10/22 mcg/actuation nasal allergy symptoms #16 grams spray,suspension (Allergy Relief (fluticasone)) albuterol sulfate 90 mcg/actuation 2 puff inhalation Q6H PRN 04/20/22 aerosol inhaler shortness of breath or wheezing #6.7 grams benzonatate 100 mg capsule 100 mg PO BID PRN cough #20 caps 04/20/22 apixaban 5 mg tablet (Eliquis) 5 mg PO BID #60 tabs 06/24/22 metoprolol succinate 25 mg 25 mg PO DAILY #30 tabs 06/24/22 tablet,extended release 24 hr metoprolol succinate 25 mg capsule 12.5 mg PO DAILY #30 ea 06/27/22 sprinkle, ext. release 24 hr Allergies Allergy/AdvReac Type Severity Reaction Status Date / Time animal dander [ANIMAL DANDER] Allergy Intermediate ITCHY Verified 06/27/22 11:51 WATERY EYES AND SNEEZING grass pollen AdvReac Intermediate itching Verified 06/27/22 11:51 house dust AdvReac Intermediate itching Verified 06/27/22 11:51 Review of Systems Review of Systems ROS Unobtainable: All systems reviewed & are unremarkable except as noted in HPI and below Patient History Medical History (Updated 06/27/22 @ 15:00 by Isamar Price DO) Acquired hypothyroidism (~2016) Alcohol abuse Allergic rhinitis Depression (Unknown) Obstructive sleep apnea Peripheral edema (~2010) Restless leg Varicose veins of both lower extremities with complications (~2010) Surgical History History of Vasu-en-Y gastric bypass History of thyroidectomy Status post breast lumpectomy Status post laparoscopic cholecystectomy Family History Sister Age: 58 History of breast cancer Son Drug overdose Social History marital status: household members: family occupational status: employed Smoking Status: Current every day smoker Tobacco: How many years used: 3 second hand exposure: No alcohol intake: current substance use type: does not use Type(s) of exercise: none Smoking Status: Current every day smoker tobacco type: cigarettes alcohol intake frequency: other Alcohol type: beer, wine and hard liquor Substance Use Type: does not use Exam Narrative Exam Narrative: GENERAL: Alert and oriented x three, female with BMI 30 in mild distress. HEENT: Head normocephalic, atraumatic, EOMI, pupils reactive, face symmetric, moist mucous membranes NECK: Supple, full range of motion CARDIOVASCULAR: Regular rate and rhythm without murmurs, rubs or gallops. No JVD. RESPIRATORY: Breath sounds equal bilaterally, no wheezes rales or rhonchi. ABDOMEN: Soft, nontender. Normoactive bowel sounds all 4 quadrants. No guarding or rebound, rigidity, no mass : No CVA tenderness EXTREMITIES: Normal range of motion, no clubbing or edema. Neurovascularly intact NEUROLOGICAL: Cranial nerves II through XII grossly intact. Moving all extremities SKIN: Warm, dry, no petechiae, no rashes or lesions. Initial Vital Signs Initial Vital Signs: Vital Signs Temperature 96.3 F L 06/27/22 11:51 Pulse Rate 71 06/27/22 11:51 Respiratory Rate 14 06/27/22 11:51 Blood Pressure 142/85 H 06/27/22 11:51 Pulse Oximetry 100 06/27/22 11:51 Oxygen Delivery Method 06/27/22 11:51 Course Orders Ordered: ED Orders 06/27/22 11:54 XR chest 1V Stat 06/27/22 11:57 EKG-12 Lead Stat 06/27/22 12:00 Complete Blood Count AUTO DIFF Stat Comprehensive Metabolic Panel Stat Lipase Stat Magnesium Stat Partial Thromboplastin Time Stat Prothrombin Time INR Stat Troponin & CK Cardiac Panel Stat 06/27/22 12:10 EKG-12 Lead Routine 06/27/22 14:44 Trop I [Troponin I] Stat 06/27/22 14:52 EKG-12 Lead Routine Vital Signs Vital signs: Vital Signs - 8 hr 06/27/22 15:35 Pulse Rate 74 Respiratory Rate 16 Blood Pressure 138/73 Pulse Oximetry 97 Oxygen Delivery Method Room Air MDM - Arrhythmia/Palpitations Lab Data Result diagrams: 06/27/22 12:00 06/27/22 12:00 Labs: Lab Results 06/27/22 06/27/22 06/27/22 Range/Units 12:00 12:00 12:00 WBC 4.7 (4.5-11.0) X10^3/uL RBC 4.53 (4.0-5.2) X10^6/uL Hgb 12.5 (12.0-16.0) g/dL Hct 37.4 (36-46) % MCV 82.6 (80-100) fL MCH 27.7 (26-34) PG MCHC 33.5 (30-36) % RDW 18.4 H (11.6-14.8) % Plt Count 191 (150-400) X10^3/uL Neut % (Auto) 64.1 (50-75) % Lymph % (Auto) 28.2 (25-40) % [place] % (Auto) 7.3 (3-14) % Eos % (Auto) 0.0 L (2-4) % Baso % (Auto) 0.4 (0-2) % Neut # (Auto) 3000 (1325-4086) /uL Lymph # (Auto) 1300 (3411-9524) /uL [place] # (Auto) 300 (0-900) /uL Eos # (Auto) 0 (0-450) /uL Baso # (Auto) 0 (0-100) /uL PT 12.5 (10.1-12.7) SECONDS INR 1.1 (0.9-1.3) APTT 32 (26-36) SECONDS Sodium 138 (137-145) mmol/L Potassium 3.8 (3.4-5.1) mmol/L Chloride 102 (98-107) mmol/L Carbon Dioxide 31 (22-32) mmol/L BUN 13 (7-17) mg/dL Creatinine 0.76 (0.52-1.04) mg/dL Estimated GFR > 60 (>60) mL/min BUN/Creatinine Ratio 17.1 (6-22) Glucose 94 (70-100) mg/dL Calcium 8.4 (8.4-10.2) mg/dL Magnesium 1.8 (1.6-2.3) mg/dL Total Bilirubin 0.3 (0.2-1.3) mg/dL AST 22 (14-36) IU/L ALT 22 (<35) IU/L Alkaline Phosphatase 96 (38-126) U/L Total Creatine Kinase 28 L (30-135) U/L CK-MB (CK-2) TNP CK-MB (CK-2) Rel Index TNP Troponin I < 0.012 (0.01-0.034) ng/mL Total Protein 7.3 (6.3-8.2) g/dL Albumin 4.1 (3.5-5.0) g/dL Globulin 3.2 (1.7-4.1) g/dL Albumin/Globulin Ratio 1.3 (1.0-2.8) Lipase 105 (23-300) U/L 06/27/22 Range/Units 14:44 WBC (4.5-11.0) X10^3/uL RBC (4.0-5.2) X10^6/uL Hgb (12.0-16.0) g/dL Hct (36-46) % MCV (80-100) fL MCH (26-34) PG MCHC (30-36) % RDW (11.6-14.8) % Plt Count (150-400) X10^3/uL Neut % (Auto) (50-75) % Lymph % (Auto) (25-40) % [place] % (Auto) (3-14) % Eos % (Auto) (2-4) % Baso % (Auto) (0-2) % Neut # (Auto) (5300-9674) /uL Lymph # (Auto) (5118-8763) /uL [place] # (Auto) (0-900) /uL Eos # (Auto) (0-450) /uL Baso # (Auto) (0-100) /uL PT (10.1-12.7) SECONDS INR (0.9-1.3) APTT (26-36) SECONDS Sodium (137-145) mmol/L Potassium (3.4-5.1) mmol/L Chloride (98-107) mmol/L Carbon Dioxide (22-32) mmol/L BUN (7-17) mg/dL Creatinine (0.52-1.04) mg/dL Estimated GFR (>60) mL/min BUN/Creatinine Ratio (6-22) Glucose (70-100) mg/dL Calcium (8.4-10.2) mg/dL Magnesium (1.6-2.3) mg/dL Total Bilirubin (0.2-1.3) mg/dL AST (14-36) IU/L ALT (<35) IU/L Alkaline Phosphatase (38-126) U/L Total Creatine Kinase (30-135) U/L CK-MB (CK-2) CK-MB (CK-2) Rel Index Troponin I < 0.012 (0.01-0.034) ng/mL Total Protein (6.3-8.2) g/dL Albumin (3.5-5.0) g/dL Globulin (1.7-4.1) g/dL Albumin/Globulin Ratio (1.0-2.8) Lipase (23-300) U/L Imaging Data Chest x-ray: Radiologist's Impresson: [address] [address] XRay Report Signed Patient: Minnie Price MR#: [id number] : 1965 Acct:[id number] Age/Sex: 56 / F Date of Service: 06/27/22 Loc: ED Accession Number: [id number] ?? Procedure: XR chest 1V Ordering Provider: Isamar Price D.O. PROCEDURE:? XR CHEST 1V ? INDICATIONS:? chest pain ? TECHNIQUE:? One view of the chest was acquired.? ? COMPARISON:? [facility], CR, XR CHEST 2V, 04/20/2022, 16:24. ? FINDINGS:? ? Surgical changes and devices:? None.? ? Lungs and pleura:? Lungs are clear.? No pleural effusions or pneumothorax.? ? Mediastinum:? Mediastinal contours appear normal.? Heart size is normal.? ? Bones and chest wall:? No suspicious bony lesions.? Overlying soft tissues appear unremarkable.? ? IMPRESSION:? No evidence acute pulmonary process. ? ? ? Dictated by: Jude Mora M.D. on 06/27/2022 at 13:32 ? ? Approved by: Jude Mora M.D. on 06/27/2022 at 13:32? ECG Data Attestation: I personally reviewed and interpreted this ECG as follows: Interpretation: Patient has rate of 70 ND 146 QRS of 108 QTC with normal sinus rhythm incomplete right bundle-branch. No acute ST changes. Patient had prior on 06/24/[address] changes but at that time was in AFib. Sinus rhythm rate of 60 3p are 136 QRS of 108 QTC [address] No acute ST changes are appreciated patient continues to be sinus rhythm on repeat. MDM Narrative Medical decision making narrative: This is a 56-year-old female who presents with complaint of palpitations. Patient had cardioversion 2 days ago for AFib. She is in sinus rhythm today. Patient does not have any acute electrolyte changes, EKGs do not have any acute ST changes no chest pain or shortness of breath. Suspect she is having some occasional extra beats. Patient discussed getting Holter monitor as an outpatient, echo she does have 1 from 2019 which at that time showed normal EF 60 65% with left ventricular systolic function that was normal with no wall motion abnormalities or other significant changes. She is having some lightheadedness this may be secondary to metoprolol discussed we can decrease her metoprolol dose from 25mg to 12.5mg total. Discharge Plan Departure Patient Disposition: Home Clinical Impression: Palpitations Instructions: DI for Atrial Fibrillation Activity Restrictions/Additional Instructions: You do not appear to be in atrial fibrillation today. Call Dr. Jain to follow-up they may wish to obtain a Holter if he continued to have sensation of extra beats. You did have an echo in 2019 discussed with him they may repeat this at this time. You can decrease the metoprolol from 25mg (1 tablet once daily) to 12.5 mg (1/2 tablet once daily), please continue the Eliquis twice daily which is the blood thinner. Prescription sent to [facility] but you can split the tablets in her current prescription at home. Please return for worsening chest pain, shortness of breath, passing out, persistent tachycardia, fast irregular heartbeat, new swelling in her extremities or other new or concerning symptoms. Prescriptions: New metoprolol succinate 25 mg capsule,sprinkle,ER 24hr 12.5 mg PO DAILY Qty: 30 0RF No Action benzonatate 100 mg capsule 100 mg PO BID PRN (Reason: cough) Qty: 20 0RF albuterol sulfate 90 mcg/actuation HFA aerosol inhaler 2 puff inhalation Q6H PRN (Reason: shortness of breath or wheezing) Qty: 6.7 0RF levothyroxine 125 mcg tablet 125 mcg PO DAILY Qty: 90 3RF Label Comments: states has not taken for a long time fluticasone propionate [Allergy Relief (fluticasone)] 50 mcg/actuation spray,suspension 2 spray intranasal DAILY PRN (Reason: allergy symptoms) Qty: 16 6RF Rx Instructions: administer into each nostril mirtazapine 15 mg tablet 15 mg PO BEDTIME Qty: 30 3RF pramipexole 0.5 mg tablet 0.5 mg PO BEDTIME Qty: 90 0RF Eliquis 5 mg tablet 5 mg PO BID Qty: 60 0RF metoprolol succinate 25 mg tablet extended release 24 hr 25 mg PO DAILY Qty: 30 0RF Referrals: Jesse Jain MD [Primary Care Provider] - Visit Report Forms: Patient Portal/API
[2022-06-27 15:19] LABS: Troponin I < 0.012 ng/mL (0.01-0.034)
[2022-06-27 15:35] VITALS: BP 138/73; PULSE 74; RESP 16; O2SAT 97
== END 2022-06-27 15:37 | disposition home or self-care (01) ==
PROVIDERS: Emergency Provider Emergency Medicine; PCP Internal Medicine
DX: R00.2 Palpitations (principal); R07.9 Chest pain, unspecified; Z79.01 Long term (current) use of anticoagulants
CPT/HCPCS: 36415; 71045; 80053; 82550; 83690; 83735; 84484; 85025; 85610; 85730; 93005; 99283; 99284

== ENCOUNTER → 2022-06-30 11:52 | Outpatient (CLI) | payer OTHER, MEDICAID, SELFPAY ==
[2021-04-28 02:35] VITALS: BMI 41.9
[2022-06-30 21:24] LABS: TSH w/ Reflex to FT4 1.73 uIU/mL (0.47-4.68)
== END ==
PROVIDERS: PCP Internal Medicine; Visit Provider Internal Medicine
DX: E03.9 Hypothyroidism, unspecified (principal)
CPT/HCPCS: 84443

== ENCOUNTER → 2022-07-14 07:39 | Outpatient (CLI) | payer OTHER, MEDICAID, SELFPAY ==
[2021-04-28 02:35] VITALS: BMI 41.9
--- NOTE | 2022-07-14 07:39 | DI.ECHO.S_ITS ---
[facility]---------+ [facility] +---------+ : : [address] [place] [address] : : : : [id number] : : : : Phone: [phone]+ Echocardiogram Report + + :Name: RADHA SANDOVAL Study Date: 07/14/2022 Height: 62 in : :[facility] ReadingLocation: Weight: 210 lb : : Gender: Female BSA: 2.0 m2 : :: 1965 Age: 56 yrs BP: 143/93 mmHg: :Reason For Study: CARDIAC EVENTS, HISTORY OF ATRIAL : :FIBRILLATION : :Ordering Physician: OZZIE, : :REGAN Ramírez Performed By: Teresa Escamilla : :Referring: REGAN HORNE : + + Interpretation Summary The patient was in sinus rhythm with heart rates between 58-74 bpm during the exam. The left ventricle is normal in size. Proximal septal thickening is noted. There is mild concentric left ventricular hypertrophy. The ejection fraction is estimated to be 60-65%. Diastolic parameters suggest probable normal left ventricular diastolic function and normal filling pressures. The left atrium is moderately dilated. The atrial septum is aneurysmal. Injection of contrast documented no interatrial shunt. There is mild mitral regurgitation. Compared to prior study on 05/01/2021, mitral regurgitation has improved. Procedure: A two-dimensional transthoracic echocardiogram with color flow and Doppler was performed. The study quality was technically adequate. A saline contrast injection was performed to assess for cardiac shunting. Comparison is made with the echocardiogram of 05/01/2021. The patient had occasional PVCs during the exam. The patient was in sinus rhythm with heart rates between 58-74 bpm during the exam. Left Ventricle: The left ventricle is normal in size. Proximal septal thickening is noted. There is mild concentric left ventricular hypertrophy. The ejection fraction is estimated to be 60-65%. Diastolic parameters suggest probable normal left ventricular diastolic function and normal filling pressures. Right Ventricle: The right ventricle is normal in size and function. Atria: The left atrium is moderately dilated. Right atrial size is normal. There is no Doppler evidence for an interatrial shunt. Injection of contrast documented no interatrial shunt. The atrial septum is aneurysmal. Mitral Valve: There is mild mitral annular calcification. There is mild mitral regurgitation. Aortic Valve: The aortic valve is not well visualized. There is no aortic valve stenosis. No aortic regurgitation is present. Tricuspid Valve: The tricuspid valve is normal in structure and function. There is a trace or physiologic amount of tricuspid regurgitation. Pulmonary artery pressures cannot be estimated because of the lack of a measurable TR jet velocity but the IVC suggests a CVP of around 3 mmHg. Pulmonic Valve: The pulmonic valve is not well visualized. There is no pulmonic valvular regurgitation. Great Vessels: The aortic root is normal size. The dimensions of the ascending aorta are normal. The IVC is of normal diameter and collapses greater than 50% with a sniff. This suggests a low right atrial pressure of 3 mm Hg. Pericardium/ Pleura There is no pericardial effusion. There is no pleural effusion. MMode/2D Measurements & Calculations LVIDd: 5.0 cm LVOT diam: 2.0 cm LVIDs: 3.3 cm Ao root diam: 3.7 cm FS: 34.4 % asc Aorta Diam: 3.4 cm IVSd: 1.2 cm Ao Arch Diam (Prox Trans): 2.4 cm LVPWd: 1.0 cm LV au. diameter/BSA (cm/m^2): 2.6 LV sys. diameter/BSA (cm/m^2): 1.7 LA A2 area: 26.6 cm2 RA long axis: 5.1 cm LA A4 area: 21.9 cm2 RA area: 18.2 cm2 LA length (vol): 6.0 cm RA vol: 55.2 ml LA vol: 82.6 ml RA : 28.3 ml/m2 LA vol index: 42.3 ml/m2 IVC diam: 1.2 cm RVD1 (basal): 3.6 cm RVD2 (mid): 2.9 cm TAPSE: 1.8 cm Doppler Measurements & Calculations Ao V2 max: 162.3 cm/sec LVOT Max Cesar: 115.3 cm/sec Ao V2 mean: 112.2 cm/sec LV V1 max P.3 mmHg Ao max P.5 mmHg LV V1 VTI: 28.6 cm Ao mean P.6 mmHg DEBORAH(I,D): 2.2 cm2 Ao V2 VTI: 38.8 cm DEBORAH(V,D): 2.2 cm2 sev ratio: 0.74 DEBORAH indexed to BSA (cm^2/m^2): 1.1 MV E max cesar: 77.0 cm/sec PA V2 max: 91.1 cm/sec MV A max cesar: 85.5 cm/sec PA V2 mean: 63.3 cm/sec MV E/A: 0.90 PA mean P.8 mmHg Med Peak E' Cesar: 7.4 cm/sec E/E' med: 10.5 Lat Peak E' Cesar: 10.2 cm/sec E/E' lat: 7.6 E/e' average: 9.0 MV dec time: 0.28 sec SV(LVOT): 87.0 ml Reading Physician:KARLOS
== END ==
PROVIDERS: PCP Internal Medicine; Referring Provider Internal Medicine; Visit Provider Internal Medicine
DX: R00.2 Palpitations (principal); I48.0 Paroxysmal atrial fibrillation; I51.7 Cardiomegaly; I34.0 Nonrheumatic mitral (valve) insufficiency; I25.3 Aneurysm of heart
CPT/HCPCS: 93306

== ENCOUNTER 2022-09-16 05:03 | Emergency (ER) | payer OTHER, MEDICAID, SELFPAY ==
[2021-04-28 02:35] VITALS: BMI 41.9
[2022-09-16] VITALS (18 sets, daily range): BP systolic 110–176; BP diastolic 64–91; PULSE 62–103; RESP 13–45; TEMP 36.8; O2SAT 96–100; BMI 40.2
--- NOTE | 2022-09-16 05:13 | DI.RAD.S_ITS ---
PROCEDURE: XR CHEST 1V INDICATIONS: chest pain TECHNIQUE: One view of the chest was acquired. COMPARISON: [facility], CR, XR CHEST 1V, 04/29/2021, 19:59. [facility], CR, XR CHEST 2V, 04/20/2022, 16:24. [facility], CR, XR CHEST 1V, 06/27/2022, 12:54. FINDINGS: Surgical changes and devices: A left upper thorax heart monitor is seen. Lungs and pleura: Lungs are clear. No pleural effusions or pneumothorax. Mediastinum: Mediastinal contours appear normal. Heart size is normal. Bones and chest wall: No suspicious bony lesions. Overlying soft tissues appear unremarkable. IMPRESSION: No acute cardiopulmonary process is seen. Note: No significant discrepancy from the preliminary report. Dictated by: David Fiore M.D. on 09/16/2022 at 7:07 Approved by: David Fiore M.D. on 09/16/2022 at 7:08
[2022-09-16 05:35] LABS: Add Manual Diff / Slide Review NO; Basophils Absolute Auto 0 /uL (0-100); Basophils Percent Auto 0.3 % (0-2); Eosinophils Absolute Auto 0 /uL (0-450); Eosinophils Percent Auto 0.1 % (2-4); Hematocrit 37.7 % (36-46); Hemoglobin 12.2 g/dL (12.0-16.0); Lymphocytes Absolute Auto 1800 /uL (1100-4500); Lymphocytes Percent Auto 33.4 % (25-40); Mean Corpuscular HGB Conc 32.4 % (30-36); Mean Corpuscular Hemoglobin 27.5 PG (26-34); Mean Corpuscular Volume 84.7 fL (80-100); Monocytes Absolute Auto 500 /uL (0-900); Monocytes Percent Auto 9.6 % (3-14); Neutrophils Absolute Auto 3000 /uL (1500-7000); Neutrophils Percent Auto 56.6 % (50-75); Platelet Count 184 X10^3/uL (150-400); Red Blood Cell Count 4.45 X10^6/uL (4.0-5.2); Red Cell Distribution Width 19.3 % (11.6-14.8); White Blood Cell Count 5.3 X10^3/uL (4.5-11.0)
[2022-09-16 05:46] LABS: Alanine Aminotransferase 19 IU/L (<35); Albumin 3.8 g/dL (3.5-5.0); Albumin Globulin Ratio 1.2 (1.0-2.8); Alkaline Phosphatase 97 U/L (38-126); Aspartate Aminotransferase 20 IU/L (14-36); BUN Creatinine Ratio 13.6 (6-22); Bilirubin Total 0.3 mg/dL (0.2-1.3); Blood Urea Nitrogen 9 mg/dL (7-17); Calcium 8.2 mg/dL (8.4-10.2); Carbon Dioxide 28 mmol/L (22-32); Chloride 108 mmol/L (98-107); Creatine Kinase 28 U/L (30-135); Estimated Glomerular Filt Rate > 60 mL/min (>60); Globulin 3.2 g/dL (1.7-4.1); Glucose 101 mg/dL (70-100); HEMOLYSIS < 15 (0-50); Lipase 66 U/L (23-300); Magnesium 1.7 mg/dL (1.6-2.3); Potassium 3.1 mmol/L (3.4-5.1); Sodium 143 mmol/L (137-145)
--- NOTE | 2022-09-16 05:48 | ED.ARRPALP ---
HPI - Arrhythmia/Palpitations <Nikos Urrutia MD - Last Filed: 09/20/22 20:42> General Chief Complaint: Arrhythmia/Palpitations Stated Complaint: HX OF AFIB Time Seen by Provider: 09/16/22 05:32 Source: patient Mode of arrival: Ambulatory History of Present Illness HPI narrative: Patient is followed by primary care Dr. Jain. 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 She is currently wearing a Zio patch Patient has history paroxysmal atrial fibrillation and is on Eliquis as well as metoprolol. Patient seen here in June and was in atrial fibrillation had cardioversion. With improvement. Patient was on aspirin only at the time with a low chads score. Patient after that visit was placed on Eliquis. Has been doing well. However this morning she got up early at 3:30 a.m. the morning. She got up because she had gone to bed early and was no longer tired. She was up and walking around and used her inhaler, shortly afterwards she felt palpitations. She states in the past low potassium has triggered her atrial fibrillation. Since 02/01 this morning, she is had intermittent palpitations but at this time she feels much better. She is currently wearing a Zio patch. She states she is been using her inhaler more recently. She had a visit in the primary care office back in August for a cough. Patient denies any chest pain. Her most recent echocardiogram was July 14, 2022. Please see report below. She is not taken her metoprolol succinate 12.5 mg this morning yet. [address] [address] Echocardiography Report Signed Patient: Minnie Price MR#: [id number] : 1965 Acct:[id number] Age/Sex: 56 / F Date of Service: 07/14/22 Loc: ECHO Accession Number: [id number] ?? Procedure: EC echo doppler complete Ordering Provider: Regan Jain MD ? [facility]? +---------+ : ? :? [address] ? : ? : : ? :? [place] ? : ? : : ? :? [id number] ? : ? : : ? : ? Phone: [phone] : ? : [phone]? [phone]? +---------+ ? Echocardiogram Report + + :Name: MINNIE PRICE? ? ? Study Date: 07/14/2022 ? Height: 62 in? : :Hospital ? ? ReadingLocation: ? Weight: 210 lb : : ? Gender: Female ? BSA: 2.0 m2? ? : :: 1965? Age: 56 yrs? BP: 143/93 mmHg: :Reason For Study: CARDIAC EVENTS, HISTORY OF ATRIAL? : :FIBRILLATION ? : :Ordering Physician: OZZIE,? : :REGAN Darrell ? Performed By: Teresa Escamilla? : :Referring: REGAN JAIN? : + + Interpretation Summary The patient was in sinus rhythm with heart rates between 58-74 bpm during the exam. The left ventricle is normal in size. Proximal septal thickening is noted. There is mild concentric left ventricular hypertrophy. The ejection fraction is estimated to be 60-65%. Diastolic parameters suggest probable normal left ventricular diastolic function and normal filling pressures. The left atrium is moderately dilated. The atrial septum is aneurysmal. Injection of contrast documented no interatrial shunt. There is mild mitral regurgitation. ? Compared to prior study on 05/01/2021, mitral regurgitation has improved. ? Procedure: ? A two-dimensional transthoracic echocardiogram with color flow and Doppler was performed. The study quality was technically adequate. A saline contrast injection was performed to assess for cardiac shunting. Comparison is made with the echocardiogram of 05/01/2021. The patient had occasional PVCs during the exam. The patient was in sinus rhythm with heart rates between 58-74 bpm during the exam. Left Ventricle: ? The left ventricle is normal in size. Proximal septal thickening is noted. There is mild concentric left ventricular hypertrophy. The ejection fraction is estimated to be 60-65%. Diastolic parameters suggest probable normal left ventricular diastolic function and normal filling pressures. Right Ventricle: ? The right ventricle is normal in size and function. Atria: ? The left atrium is moderately dilated. Right atrial size is normal. There is no Doppler evidence for an interatrial shunt. Injection of contrast documented no interatrial shunt. The atrial septum is aneurysmal. Mitral Valve: ? There is mild mitral annular calcification. There is mild mitral regurgitation. Aortic Valve: ? The aortic valve is not well visualized. There is no aortic valve stenosis. No aortic regurgitation is present. Tricuspid Valve: ? The tricuspid valve is normal in structure and function. There is a trace or physiologic amount of tricuspid regurgitation. Pulmonary artery pressures cannot be estimated because of the lack of a measurable TR jet velocity but the IVC suggests a CVP of around 3 mmHg. Pulmonic Valve: ? The pulmonic valve is not well visualized. There is no pulmonic valvular regurgitation. Great Vessels: ? The aortic root is normal size. The dimensions of the ascending aorta are normal. The IVC is of normal diameter and collapses greater than 50% with a sniff. This suggests a low right atrial pressure of 3 mm Hg. Pericardium/ Pleura ? There is no pericardial effusion. There is no pleural effusion. ? MMode/2D Measurements & Calculations LVIDd: 5.0 cm? LVOT diam: 2.0 cm LVIDs: 3.3 cm? Ao root diam: 3.7 cm FS: 34.4 % ? asc Aorta Diam: 3.4 cm IVSd: 1.2 cm ? Ao Arch Diam (Prox Trans): 2.4 cm LVPWd: 1.0 cm LV au. diameter/BSA (cm/m^2): 2.6 LV sys. diameter/BSA (cm/m^2): 1.7 ? LA A2 area: 26.6 cm2 ? RA long axis: 5.1 cm LA A4 area: 21.9 cm2 ? RA area: 18.2 cm2 LA length (vol): 6.0 cm? RA vol: 55.2 ml LA vol: 82.6 ml? RA : 28.3 ml/m2 LA vol index: 42.3 ml/m2 ? IVC diam: 1.2 cm ? RVD1 (basal): 3.6 cm RVD2 (mid): 2.9 cm TAPSE: 1.8 cm ? Doppler Measurements & Calculations Ao V2 max: 162.3 cm/sec? LVOT Max Cesar: 115.3 cm/sec Ao V2 mean: 112.2 cm/sec ? LV V1 max P.3 mmHg Ao max P.5 mmHg ? LV V1 VTI: 28.6 cm Ao mean P.6 mmHg ? DEBORAH(I,D): 2.2 cm2 Ao V2 VTI: 38.8 cm ? DEBORAH(V,D): 2.2 cm2 ? sev ratio: 0.74 ? DEBORAH indexed to BSA (cm^2/m^2): 1.1 ? MV E max cesar: 77.0 cm/sec? PA V2 max: 91.1 cm/sec MV A max cesar: 85.5 cm/sec? PA V2 mean: 63.3 cm/sec MV E/A: 0.90 ? PA mean P.8 mmHg Med Peak E' Cesar: 7.4 cm/sec E/E' med: 10.5 Lat Peak E' Cesar: 10.2 cm/sec E/E' lat: 7.6 E/e' average: 9.0 MV dec time: 0.28 sec ? SV(LVOT): 87.0 ml ? Reading Physician:AM Related Data Home Medications Medication Instructions Recorded Confirmed methotrexate sodium 2.5 mg tablet 10 mg PO QWEEK 06/30/22 08/27/22 Previous Rx's Medication Instructions Recorded levothyroxine 125 mcg tablet 125 mcg PO DAILY #90 tabs 02/23/20 pramipexole 0.5 mg tablet 0.5 mg PO BEDTIME restless leg #90 02/07/22 tabs fluticasone propionate 50 2 spray intranasal DAILY PRN 04/10/22 mcg/actuation nasal allergy symptoms #16 grams spray,suspension (Allergy Relief (fluticasone)) albuterol sulfate 90 mcg/actuation 2 puff inhalation Q6H PRN 08/07/22 aerosol inhaler shortness of breath or wheezing #6.7 grams apixaban 5 mg tablet (Eliquis) 5 mg PO BID #180 tabs 08/07/22 metoprolol succinate 25 mg 12.5 mg PO DAILY #90 tabs 08/07/22 tablet,extended release 24 hr benzonatate 100 mg capsule 100 mg PO BID PRN cough #20 caps 08/27/22 Allergies Allergy/AdvReac Type Severity Reaction Status Date / Time animal dander [ANIMAL DANDER] Allergy Intermediate ITCHY Verified 09/16/22 05:21 WATERY EYES AND SNEEZING grass pollen AdvReac Intermediate itching Verified 09/16/22 05:21 house dust AdvReac Intermediate itching Verified 09/16/22 05:21 <Natalie Barkley MD - Last Filed: 09/16/22 11:25> History of Present Illness HPI narrative: Patient is followed by primary care Dr. Jain. 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 She is currently wearing a Zio patch Patient has history paroxysmal atrial fibrillation and is on Eliquis as well as metoprolol. Patient seen here in June and was in atrial fibrillation had cardioversion. With improvement. Patient was on aspirin only at the time with a low chads score. Patient after that visit was placed on Eliquis. Has been doing well. However this morning she got up early at 3:30 a.m. the morning. She got up because she had gone to bed early and was no longer tired. She was up and walking around and used her inhaler, shortly afterwards she felt palpitations. She states in the past low potassium has triggered her atrial fibrillation. Since 02/01 this morning, she is had intermittent palpitations but at this time she feels much better. She is currently wearing a Zio patch. She states she is been using her inhaler more recently. She had a visit in the primary care office back in August for a cough. Patient denies any chest pain. Her most recent echocardiogram was July 14, 2022. Please see report below. She is not taken her metoprolol succinate 12.5 mg this morning yet. Echo from 07/14/22 + Interpretation Summary The patient was in sinus rhythm with heart rates between 58-74 bpm during the exam. The left ventricle is normal in size. Proximal septal thickening is noted. There is mild concentric left ventricular hypertrophy. The ejection fraction is estimated to be 60-65%. Diastolic parameters suggest probable normal left ventricular diastolic function and normal filling pressures. The left atrium is moderately dilated. The atrial septum is aneurysmal. Injection of contrast documented no interatrial shunt. There is mild mitral regurgitation. ? Compared to prior study on 05/01/2021, mitral regurgitation has improved. ? Review of Systems <Nikos Urrutia MD - Last Filed: 09/20/22 20:42> Review of Systems Narrative: GENERAL: Denies chills, fatigue, malaise, fever, sweats. HEENT: Denies sinus pain, ear pain, sore throat, positive congestion RESPIRATORY: Denies dyspnea, positive cough CARDIOVASCULAR: Denies chest pain, positive palpitations GASTROINTESTINAL: Denies nausea, vomiting, abdominal pain : Denies dysuria, frequency, hematuria MUSCULOSKELETAL: denies muscle or bony pain SKIN: Denies rash, skin lesions NEUROLOGIC: Denies weakness, numbness ROS Unobtainable: All systems reviewed & are unremarkable except as noted in HPI and below Patient History <Nikos Urrutia MD - Last Filed: 09/20/22 20:42> Medical History (Updated 09/16/22 @ 11:24 by Natalie Barkley MD) Acquired hypothyroidism (~2016) Alcohol abuse Allergic rhinitis Depression (Unknown) Obstructive sleep apnea Peripheral edema (~2010) Restless leg Varicose veins of both lower extremities with complications (~2010) Surgical History History of Vasu-en-Y gastric bypass History of thyroidectomy Status post breast lumpectomy Status post laparoscopic cholecystectomy Family History Sister Age: 59 History of breast cancer Son Drug overdose Social History marital status: household members: family occupational status: employed Smoking Status: Current every day smoker Tobacco: How many years used: 3 second hand exposure: No alcohol intake: current substance use type: does not use Type(s) of exercise: none Smoking Status: Current every day smoker tobacco type: cigarettes alcohol intake frequency: other Alcohol type: beer, wine and hard liquor Substance Use Type: does not use Exam <Nikos Urrutia MD - Last Filed: 09/20/22 20:42> Narrative Exam Narrative: GENERAL: in no distress, not toxic not dyspneic HEAD: Normocephalic. EYES: Pupils equal round No scleral icterus. ENT: Mucous membranes moist. NECK: Trachea midline. CARDIOVASCULAR: Irregular irregular rhythm and rate without murmurs RESPIRATORY: Clear to auscultation. Breath sounds equal bilaterally. No wheezes, rales, or rhonchi. GASTROINTESTINAL: Abdomen soft, non-tender EXTREMITIES: No gross deformities. BACK: No flank tenderness. NEURO: AOx4. SKIN: Warm and dry PSYCH: Not anxious, is cooperative Initial Vital Signs Initial Vital Signs: Vital Signs Pulse Rate 94 H 09/16/22 05:16 Respiratory Rate 28 H 09/16/22 05:16 Pulse Oximetry 100 09/16/22 05:16 <Natalie Barkley MD - Last Filed: 09/16/22 11:25> Initial Vital Signs Initial Vital Signs: Vital Signs Pulse Rate 94 H 09/16/22 05:16 Respiratory Rate 28 H 09/16/22 05:16 Pulse Oximetry 100 09/16/22 05:16 Course <Nikos Urrutia MD - Last Filed: 09/20/22 20:42> Course Course Narrative: September 16, 2022 at 7:00 a.m.. Sign out to Dr. Barkley, patient has history of atrial fibrillation and is anticoagulated with Eliquis. Patient currently getting potassium IV and oral replacement. Patient is feeling better. Will need to repeat potassium levels Orders Ordered: Discontinued Medications POTASSIUM CHLORIDE IN WATER (Potassium Cl 10 Meq/100 Ml Sofia) 10 meq in 100 mls @ 100 mls/hr IV Q1H [facility] Stop: 09/16/22 07:59 Last Infusion: 09/16/22 08:55 Dose: 0 mls/hr Documented By: Admin: 09/16/22 07:04 Dose: 100 mls/hr Documented By: Infusion: 09/16/22 07:03 Dose: 0 mls/hr Documented By: Admin: 09/16/22 06:06 Dose: 100 mls/hr Documented By: DARREL Metoprolol Succinate (Metoprolol Er 25 Mg Tablet) 12.5 mg PO NOW ONE Stop: 09/16/22 05:48 Last Admin: 09/16/22 05:54 Dose: 12.5 mg Documented By: DARREL Metoprolol Tartrate (Metoprolol Ir 25 Mg Tablet) 50 mg PO NOW ONE Stop: 09/16/22 07:33 Last Admin: 09/16/22 07:42 Dose: 50 mg Documented By: KAMRAN Potassium Chloride (Potassium Chloride 20 Meq Tab) 40 meq PO NOW ONE Stop: 09/16/22 06:00 Last Admin: 09/16/22 06:05 Dose: 40 meq Documented By: DARREL Potassium Chloride (Potassium Chloride 20 Meq Tab) 40 meq PO NOW ONE Stop: 09/16/22 07:33 Last Admin: 09/16/22 07:42 Dose: 40 meq Documented By: KAMRAN Reevaluation(s) Reevaluation #1: Reviewed with patient laboratory studies and imaging. Her recent increased use of albuterol/inhaler has likely cause decrease in her potassium causing to trigger her atrial fibrillation this morning. Likely this morning's albuterol use was enough to trigger. Likely her potassium has been getting lower in the past weeks with the use of her albuterol inhaler. Again, she states in the past low potassium levels has triggered her atrial fibrillation. Time: 06:02 Vital Signs Vital signs: Vital Signs - 8 hr 09/16/22 05:21 09/16/22 05:16 09/16/22 05:30 Temperature 98.2 F Pulse Rate 101 H 94 H Respiratory Rate 20 28 H Blood Pressure 133/91 H 129/80 Pulse Oximetry 99 100 Oxygen Delivery Method Room Air 09/16/22 05:30 09/16/22 06:00 09/16/22 06:00 Temperature Pulse Rate 96 H 98 H Respiratory Rate 13 16 Blood Pressure 123/80 Pulse Oximetry 100 98 Oxygen Delivery Method 09/16/22 06:30 09/16/22 06:30 09/16/22 07:00 Temperature Pulse Rate 87 90 Respiratory Rate 18 15 Blood Pressure 132/66 Pulse Oximetry 98 98 Oxygen Delivery Method 09/16/22 07:01 09/16/22 07:01 09/16/22 07:30 Temperature Pulse Rate 92 H 90 Respiratory Rate 15 17 Blood Pressure 148/77 H Pulse Oximetry 98 97 Oxygen Delivery Method Room Air 09/16/22 07:31 09/16/22 07:31 09/16/22 08:00 Temperature Pulse Rate 93 H Respiratory Rate 45 H Blood Pressure 132/88 138/70 Pulse Oximetry 97 Oxygen Delivery Method 09/16/22 08:00 09/16/22 08:30 09/16/22 08:40 Temperature Pulse Rate 103 H 87 91 H Respiratory Rate 23 17 Blood Pressure Pulse Oximetry 98 98 98 Oxygen Delivery Method 09/16/22 08:54 09/16/22 08:54 09/16/22 09:00 Temperature Pulse Rate 92 H Respiratory Rate 22 Blood Pressure 119/75 110/64 Pulse Oximetry 99 Oxygen Delivery Method 09/16/22 09:00 09/16/22 09:30 09/16/22 09:30 Temperature Pulse Rate 80 80 Respiratory Rate 16 20 Blood Pressure 114/70 Pulse Oximetry 99 97 Oxygen Delivery Method 09/16/22 10:00 09/16/22 10:00 Temperature Pulse Rate 79 Respiratory Rate 15 Blood Pressure 111/71 Pulse Oximetry 97 Oxygen Delivery Method <Natalie Barkley MD - Last Filed: 09/16/22 11:25> Orders Ordered: Discontinued Medications POTASSIUM CHLORIDE IN WATER (Potassium Cl 10 Meq/100 Ml Sofia) 10 meq in 100 mls @ 100 mls/hr IV Q1H [facility] Stop: 09/16/22 07:59 Last Infusion: 09/16/22 08:55 Dose: 0 mls/hr Documented By: Admin: 09/16/22 07:04 Dose: 100 mls/hr Documented By: Infusion: 09/16/22 07:03 Dose: 0 mls/hr Documented By: Admin: 09/16/22 06:06 Dose: 100 mls/hr Documented By: DARREL Metoprolol Succinate (Metoprolol Er 25 Mg Tablet) 12.5 mg PO NOW ONE Stop: 09/16/22 05:48 Last Admin: 09/16/22 05:54 Dose: 12.5 mg Documented By: DARREL Metoprolol Tartrate (Metoprolol Ir 25 Mg Tablet) 50 mg PO NOW ONE Stop: 09/16/22 07:33 Last Admin: 09/16/22 07:42 Dose: 50 mg Documented By: KAMRAN Potassium Chloride (Potassium Chloride 20 Meq Tab) 40 meq PO NOW ONE Stop: 09/16/22 06:00 Last Admin: 09/16/22 06:05 Dose: 40 meq Documented By: DARREL Potassium Chloride (Potassium Chloride 20 Meq Tab) 40 meq PO NOW ONE Stop: 09/16/22 07:33 Last Admin: 09/16/22 07:42 Dose: 40 meq Documented By: KAMRAN Vital Signs Vital signs: Vital Signs - 8 hr 09/16/22 05:21 09/16/22 05:16 09/16/22 05:30 Temperature 98.2 F Pulse Rate 101 H 94 H Respiratory Rate 20 28 H Blood Pressure 133/91 H 129/80 Pulse Oximetry 99 100 Oxygen Delivery Method Room Air 09/16/22 05:30 09/16/22 06:00 09/16/22 06:00 Temperature Pulse Rate 96 H 98 H Respiratory Rate 13 16 Blood Pressure 123/80 Pulse Oximetry 100 98 Oxygen Delivery Method 09/16/22 06:30 09/16/22 06:30 09/16/22 07:00 Temperature Pulse Rate 87 90 Respiratory Rate 18 15 Blood Pressure 132/66 Pulse Oximetry 98 98 Oxygen Delivery Method 09/16/22 07:01 09/16/22 07:01 09/16/22 07:30 Temperature Pulse Rate 92 H 90 Respiratory Rate 15 17 Blood Pressure 148/77 H Pulse Oximetry 98 97 Oxygen Delivery Method Room Air 09/16/22 07:31 09/16/22 07:31 09/16/22 08:00 Temperature Pulse Rate 93 H Respiratory Rate 45 H Blood Pressure 132/88 138/70 Pulse Oximetry 97 Oxygen Delivery Method 09/16/22 08:00 09/16/22 08:30 09/16/22 08:40 Temperature Pulse Rate 103 H 87 91 H Respiratory Rate 23 17 Blood Pressure Pulse Oximetry 98 98 98 Oxygen Delivery Method 09/16/22 08:54 09/16/22 08:54 09/16/22 09:00 Temperature Pulse Rate 92 H Respiratory Rate 22 Blood Pressure 119/75 110/64 Pulse Oximetry 99 Oxygen Delivery Method 09/16/22 09:00 09/16/22 09:30 09/16/22 09:30 Temperature Pulse Rate 80 80 Respiratory Rate 16 20 Blood Pressure 114/70 Pulse Oximetry 99 97 Oxygen Delivery Method 09/16/22 10:00 09/16/22 10:00 Temperature Pulse Rate 79 Respiratory Rate 15 Blood Pressure 111/71 Pulse Oximetry 97 Oxygen Delivery Method MDM - Arrhythmia/Palpitations <Nikos Urrutia MD - Last Filed: 09/20/22 20:42> Differential Diagnosis Differential diagnosis: Likely palpitations, sinus tachycardia, artial fibrillation, artial flutter, ventricular premature beats, supraventricular tachycardia and ventricular tachycardia Lab Data Result diagrams: 09/16/22 05:15 09/16/22 09:06 Labs: Lab Results 09/16/22 09/16/22 09/16/22 Range/Units 05:15 05:15 09:06 WBC 5.3 (4.5-11.0) X10^3/uL RBC 4.45 (4.0-5.2) X10^6/uL Hgb 12.2 (12.0-16.0) g/dL Hct 37.7 (36-46) % MCV 84.7 (80-100) fL MCH 27.5 (26-34) PG MCHC 32.4 (30-36) % RDW 19.3 H (11.6-14.8) % Plt Count 184 (150-400) X10^3/uL Neut % (Auto) 56.6 (50-75) % Lymph % (Auto) 33.4 (25-40) % Wilkinson % (Auto) 9.6 (3-14) % Eos % (Auto) 0.1 L (2-4) % Baso % (Auto) 0.3 (0-2) % Neut # (Auto) 3000 (8965-8904) /uL Lymph # (Auto) 1800 (8106-0926) /uL Wilkinson # (Auto) 500 (0-900) /uL Eos # (Auto) 0 (0-450) /uL Baso # (Auto) 0 (0-100) /uL Sodium 143 (137-145) mmol/L Potassium 3.1 L 4.2 (3.4-5.1) mmol/L Chloride 108 H (98-107) mmol/L Carbon Dioxide 28 (22-32) mmol/L BUN 9 (7-17) mg/dL Creatinine 0.66 (0.52-1.04) mg/dL Estimated GFR > 60 (>60) mL/min BUN/Creatinine Ratio 13.6 (6-22) Glucose 101 H (70-100) mg/dL Calcium 8.2 L (8.4-10.2) mg/dL Magnesium 1.7 (1.6-2.3) mg/dL Total Bilirubin 0.3 (0.2-1.3) mg/dL AST 20 (14-36) IU/L ALT 19 (<35) IU/L Alkaline Phosphatase 97 (38-126) U/L Total Creatine Kinase 28 L (30-135) U/L CK-MB (CK-2) TNP CK-MB (CK-2) Rel Index TNP Troponin I < 0.012 (0.01-0.034) ng/mL Total Protein 7.0 (6.3-8.2) g/dL Albumin 3.8 (3.5-5.0) g/dL Globulin 3.2 (1.7-4.1) g/dL Albumin/Globulin Ratio 1.2 (1.0-2.8) Lipase 66 (23-300) U/L Imaging Data Chest x-ray: Radiologist's Impresson: No active cardiopulmonary pathology ECG Data Interpretation: Atrial fibrillation rate 96, incomplete right bundle-branch block MDM Narrative Medical decision making narrative: Patient episode this morning for paroxysmal atrial fibrillation likely due to low potassium. Patient states she is had episodes with atrial fibrillation when she had low potassium. Likely source of hypokalemia is her recent more use of her inhaler causing her potassium to decreased. Likely this morning's episode was enough to trigger her atrial fibrillation. Her potassium is 3.1 <Natalie Barkley MD - Last Filed: 09/16/22 11:25> Lab Data Labs: Lab Results 09/16/22 09/16/22 09/16/22 Range/Units 05:15 05:15 09:06 WBC 5.3 (4.5-11.0) X10^3/uL RBC 4.45 (4.0-5.2) X10^6/uL Hgb 12.2 (12.0-16.0) g/dL Hct 37.7 (36-46) % MCV 84.7 (80-100) fL MCH 27.5 (26-34) PG MCHC 32.4 (30-36) % RDW 19.3 H (11.6-14.8) % Plt Count 184 (150-400) X10^3/uL Neut % (Auto) 56.6 (50-75) % Lymph % (Auto) 33.4 (25-40) % Wilkinson % (Auto) 9.6 (3-14) % Eos % (Auto) 0.1 L (2-4) % Baso % (Auto) 0.3 (0-2) % Neut # (Auto) 3000 (7028-8776) /uL Lymph # (Auto) 1800 (5209-3050) /uL Wilkinson # (Auto) 500 (0-900) /uL Eos # (Auto) 0 (0-450) /uL Baso # (Auto) 0 (0-100) /uL Sodium 143 (137-145) mmol/L Potassium 3.1 L 4.2 (3.4-5.1) mmol/L Chloride 108 H (98-107) mmol/L Carbon Dioxide 28 (22-32) mmol/L BUN 9 (7-17) mg/dL Creatinine 0.66 (0.52-1.04) mg/dL Estimated GFR > 60 (>60) mL/min BUN/Creatinine Ratio 13.6 (6-22) Glucose 101 H (70-100) mg/dL Calcium 8.2 L (8.4-10.2) mg/dL Magnesium 1.7 (1.6-2.3) mg/dL Total Bilirubin 0.3 (0.2-1.3) mg/dL AST 20 (14-36) IU/L ALT 19 (<35) IU/L Alkaline Phosphatase 97 (38-126) U/L Total Creatine Kinase 28 L (30-135) U/L CK-MB (CK-2) TNP CK-MB (CK-2) Rel Index TNP Troponin I < 0.012 (0.01-0.034) ng/mL Total Protein 7.0 (6.3-8.2) g/dL Albumin 3.8 (3.5-5.0) g/dL Globulin 3.2 (1.7-4.1) g/dL Albumin/Globulin Ratio 1.2 (1.0-2.8) Lipase 66 (23-300) U/L [facility] Narrative Medical decision making narrative: Patient episode this morning for paroxysmal atrial fibrillation likely due to low potassium. Patient states she is had episodes with atrial fibrillation when she had low potassium. Likely source of hypokalemia is her recent more use of her inhaler causing her potassium to decreased. Likely this morning's episode was enough to trigger her atrial fibrillation. Her potassium is 3.1 09/16/22 8:28 Care is assumed change of shift. Patient is independently reviewed as well as labs and studies She currently remains in atrial fibrillation. Potassium is being replaced both orally and IV. She has had 12.5 mg metoprolol and I added an additional 50 mg p.o.. We discussed options. In the past she has required cardioversion twice a. She is anticoagulated. Will re-evaluate over the next 2 hours as the potassium levels increase and metoprolol levels increase. If she does not spontaneously convert will then discuss cardioversion. At this point she is rate controlled. 11:22am potassium level is repleted, after getting blood drawn, walking to the bathroom and climbing back into bed patient has converted to sinus rhythm at a rate in the 60s. She is feeling well at this time. She will be discharged home and will ask her to continue all of her usual medications Discharge Plan Departure Patient Disposition: Home Clinical Impression: Paroxysmal A-fib, Hypokalemia Instructions: DI for Atrial Fibrillation Activity Restrictions/Additional Instructions: Thank you for coming in today You had an approximately 6 hour episode of atrial fibrillation. You did convert spontaneously. Your potassium was slightly low and this was replaced and was appropriate prior to discharge from the emergency department Please continue all of your usual medications and make sure that you schedule your follow-up with Dr. Jain regarding ER persistent paroxysmal atrial fibrillation. If you find that you are getting worse or develop any new symptoms, please feel free to return to the emergency department for further evaluation. Prescriptions: No Action benzonatate 100 mg capsule 100 mg PO BID PRN (Reason: cough) Qty: 20 0RF levothyroxine 125 mcg tablet 125 mcg PO DAILY Qty: 90 3RF Label Comments: states has not taken for a long time fluticasone propionate [Allergy Relief (fluticasone)] 50 mcg/actuation spray,suspension 2 spray intranasal DAILY PRN (Reason: allergy symptoms) Qty: 16 6RF Rx Instructions: administer into each nostril albuterol sulfate 90 mcg/actuation HFA aerosol inhaler 2 puff inhalation Q6H PRN (Reason: shortness of breath or wheezing) Qty: 6.7 5RF Eliquis 5 mg tablet 5 mg PO BID Qty: 180 3RF metoprolol succinate 25 mg tablet extended release 24 hr 12.5 mg PO DAILY Qty: 90 3RF pramipexole 0.5 mg tablet 0.5 mg PO BEDTIME Qty: 90 0RF methotrexate sodium 2.5 mg tablet 10 mg PO QWEEK Rx Instructions: 2 tabs in AM, 2 tabs in PM QWEEK Referrals: Regan Jain MD [Primary Care Provider] - Visit Report Forms: Patient Portal/API
[2022-09-16] MEDS: METOPROLOL ER 25 MG TABLET 12.5 MG PO (05:54)
[2022-09-16 05:57] LABS: Troponin I < 0.012 ng/mL (0.01-0.034)
[2022-09-16] MEDS: POTASSIUM CHLORIDE 20 MEQ TAB 40 MEQ PO ×2 (06:05→07:42)
[2022-09-16] MEDS: POTASSIUM CHLORIDE IN WATER 10 MEQ/100 ML PIGGYBACK 100 MEQ IV ×2 (06:06→07:04)
[2022-09-16] MEDS: METOPROLOL IR 25 MG TABLET 50 MG PO (07:42)
[2022-09-16 09:14] LABS: HEMOLYSIS < 15 (0-50); Potassium 4.2 mmol/L (3.4-5.1)
== END 2022-09-16 11:36 | disposition home or self-care (01) ==
PROVIDERS: Emergency Medicine; Emergency Provider Emergency Medicine; PCP Internal Medicine
DX: I48.0 Paroxysmal atrial fibrillation (principal); Z79.01 Long term (current) use of anticoagulants; E87.6 Hypokalemia
CPT/HCPCS: 36415; 71045; 80053; 82550; 83690; 83735; 84132; 84484; 85025; 93005; 93010; 96365; 96366; 99284

== ENCOUNTER 2022-10-08 08:44 | Emergency (ER) | payer OTHER, MEDICAID, SELFPAY ==
[2021-04-28 02:35] VITALS: BMI 41.9
[2022-10-08] VITALS (155 sets, daily range): BP systolic 68–159; BP diastolic 49–94; PULSE 53–80; RESP 7–33; TEMP 36.7–37.8; O2SAT 89–100; BMI 39.3
[2022-10-08] MEDS: SODIUM CHLORIDE 0.9% 1,000 ML 1000 ML IV ×3 (10:25→11:10)
--- NOTE | 2022-10-08 10:28 | DI.CT.S_ITS ---
PROCEDURE: CT ANGIO CHEST PE PROTOCOL INDICATIONS: chills, vfib arrest TECHNIQUE: After the administration of intravenous contrast, 2 mm thick sections acquired from the pulmonary apices to the posterior costophrenic angles. 3-dimensional maximum intensity projection (MIP) coronal and sagittal reformats were then acquired through the thorax. For radiation dose reduction, the following was used: automated exposure control, adjustment of mA and/or kV according to patient size. COMPARISON: None. FINDINGS: Image quality: Excellent. Pulmonary arteries: No intraluminal filling defects to suggest central pulmonary embolism. Main pulmonary artery is enlarged, measuring 4.1 cm in diameter, which can be seen in the setting of pulmonary hypertension. Lungs and pleura: Mild dependent atelectasis in the right lung base. No focal consolidation. No pleural effusions or pneumothorax. Central and peripheral airways are patent. Mediastinum: Heart size is normal, without pericardial effusion. No mediastinal or hilar adenopathy. Thoracic aorta is normal in caliber and enhancement. Esophagus is normal in caliber, without hiatal hernia. Bones and chest wall: Right internal jugular catheter terminates at the superior cavoatrial junction. No suspicious bony lesions. Subtle contour irregularity of the anterior left 3rd through 7th ribs and the right 2nd through 7th ribs is suspicious for acute rib fractures. Thyroid is unremarkable. No axillary or supraclavicular adenopathy. Abdomen: Postsurgical changes are seen in the stomach. No acute abnormality in the upper abdomen. IMPRESSION: 1. No acute pulmonary embolus. 2. Main pulmonary artery is enlarged at 4.1 cm, which can be seen in the setting of pulmonary arterial hypertension. 3. Minimally displaced left anterior 3rd through 7th rib fractures and right anterior 2nd through 7th rib fractures. Approved by: Viet Burton M.D. on 10/08/2022 at 14:48
--- NOTE | 2022-10-08 10:28 | DI.CT.S_ITS ---
PROCEDURE: CT HEAD/BRAIN WO CON INDICATIONS: chills, vfib arrest TECHNIQUE: Noncontrast 4.5 mm thick angled axial sections acquired from the foramen magnum to the vertex, with coronal and sagittal reformats. For radiation dose reduction, the following was used: automated exposure control, adjustment of mA and/or kV according to patient size. COMPARISON: None. FINDINGS: Image quality: Excellent. CSF spaces: Basal cisterns are patent. No extra-axial fluid collections. Ventricles are normal in size and shape. Brain: No midline shift. No intracranial masses or hemorrhage. Mora-white matter interface is normal. Skull and face: Calvarium and visualized facial bones are intact, without suspicious lesions. Sinuses: Visualized sinuses and mastoids are clear. IMPRESSION: No acute intracranial abnormality. Approved by: Viet Burton M.D. on 10/08/2022 at 14:42
--- NOTE | 2022-10-08 10:28 | DI.RAD.S_ITS ---
PROCEDURE: XR CHEST 1V INDICATIONS: chest pain TECHNIQUE: One view of the chest was acquired. COMPARISON: [facility], CR, XR CHEST 2V, 04/20/2022, 16:24. [facility], CR, XR CHEST 1V, 06/27/2022, 12:54. [facility], CR, XR CHEST 1V, 09/16/2022, 5:14. FINDINGS: Surgical changes and devices: None. Lungs and pleura: On this semiupright portable chest examination, no large pneumothorax or large pleural effusions are seen. No focal infiltrates are seen. Mediastinum: Mediastinal contours appear normal. Heart size is mildly enlarged. Bones and chest wall: No suspicious bony lesions. Age-appropriate bony degenerative changes are seen. Overlying soft tissues appear unremarkable. IMPRESSION: Mild cardiomegaly. No significant pulmonary abnormality is seen. Dictated by: David Fiore M.D. on 10/08/2022 at 9:39 Approved by: David Fiore M.D. on 10/08/2022 at 9:40
[2022-10-08 10:30] LABS: Add Manual Diff / Slide Review NO; Basophils Absolute Auto 0 /uL (0-100); Basophils Percent Auto 0.2 % (0-2); Eosinophils Absolute Auto 0 /uL (0-450); Eosinophils Percent Auto 0.1 % (2-4); Hematocrit 35.9 % (36-46); Hemoglobin 11.7 g/dL (12.0-16.0); Lymphocytes Absolute Auto 1000 /uL (1100-4500); Lymphocytes Percent Auto 22.1 % (25-40); Mean Corpuscular HGB Conc 32.5 % (30-36); Mean Corpuscular Hemoglobin 27.7 PG (26-34); Mean Corpuscular Volume 85.3 fL (80-100); Monocytes Absolute Auto 400 /uL (0-900); Monocytes Percent Auto 7.9 % (3-14); Neutrophils Absolute Auto 3200 /uL (1500-7000); Neutrophils Percent Auto 69.7 % (50-75); Platelet Count 182 X10^3/uL (150-400); Red Blood Cell Count 4.21 X10^6/uL (4.0-5.2); Red Cell Distribution Width 19.3 % (11.6-14.8); White Blood Cell Count 4.6 X10^3/uL (4.5-11.0)
[2022-10-08 10:37] LABS: Alanine Aminotransferase 15 IU/L (<35); Albumin 3.5 g/dL (3.5-5.0); Albumin Globulin Ratio 1.2 (1.0-2.8); Alkaline Phosphatase 104 U/L (38-126); Aspartate Aminotransferase 18 IU/L (14-36); Bilirubin Total 0.3 mg/dL (0.2-1.3); Blood Urea Nitrogen 12 mg/dL (7-17); Calcium 7.9 mg/dL (8.4-10.2); Carbon Dioxide 34 mmol/L (22-32); Chloride 104 mmol/L (98-107); Estimated Glomerular Filt Rate > 60 mL/min (>60); Globulin 2.9 g/dL (1.7-4.1); Glucose 95 mg/dL (70-100); HEMOLYSIS < 15 (0-50); Lipase 45 U/L (23-300); Potassium 3.3 mmol/L (3.4-5.1); Sodium 143 mmol/L (137-145); Total Protein 6.4 g/dL (6.3-8.2)
--- NOTE | 2022-10-08 10:46 | ED_ITS ---
HPI - CPR <Isamarrosa maria Price, - Last Filed: 10/09/22 12:57> General Chief Complaint: Abdominal Pain Stated Complaint: chills,abdominal pain Time Seen by Provider: 10/08/22 10:28 Source: patient Mode of arrival: Ambulatory History of Present Illness HPI narrative: This is a 57-year-old female atrial fibrillation who had her Eliquis stopped in his now on aspirin only, methotrexate for rheumatoid arthritis, gastric bypass and history of alcohol abuse who presents at triage with complaint of chills, stomach discomfort, cough cold and congestion she denied chest pain or shortness of breath. While in the waiting room patient appeared to pass out she did not have a pulse CPR was initiated. Patient was brought back to the ER she received 1 of epi was found to be in VFib arrest received 2 fibrillation and converted to a junctional or atrial fibrillation. Patient received 300 mg of amiodarone and infusion was continued. Patient is now alert talkative with myself, she states she is felt ill for several days with chills, fatigue abdominal bloating and discomfort, she has had nausea occasional vomiting she has persistent chronic diarrhea, patient states no UTI symptoms. She has had some congestion. Patient denies any prior cardiac catheterization she is supposed to have a stress test next month. She has a Holter on, she has had cholecystectomy and gastric bypass. She states no cardiac stents or ablation. She does smoke tobacco 3rd pack daily, she quit alcohol a year ago, denies illicit or IV drugs. Dr. Jain is her primary care. Related Data Home Medications Medication Instructions Recorded Confirmed methotrexate sodium 2.5 mg tablet 20 mg PO QWEEK 06/30/22 10/19/22 apixaban 5 mg tablet (Eliquis) 5 mg PO BID 10/19/22 10/19/22 aspirin 81 mg tablet,delayed 81 mg PO DAILY 10/19/22 10/19/22 release (Adult Low Dose Aspirin) bupropion HCl 75 mg tablet 75 mg PO BID 10/19/22 10/19/22 famotidine 20 mg tablet 20 mg PO BID 10/19/22 10/19/22 furosemide 20 mg tablet 20 mg PO DAILY 10/19/22 10/19/22 lisinopril 2.5 mg tablet 1.25 mg PO DAILY 10/19/22 10/19/22 rosuvastatin 20 mg tablet 20 mg PO DAILY 10/19/22 10/19/22 Previous Rx's Medication Instructions Recorded levothyroxine 125 mcg tablet 125 mcg PO DAILY #90 tabs 02/23/20 fluticasone propionate 50 2 spray intranasal DAILY PRN 04/10/22 mcg/actuation nasal allergy symptoms #16 grams spray,suspension (Allergy Relief (fluticasone)) albuterol sulfate 90 mcg/actuation 2 puff inhalation Q6H PRN 08/07/22 aerosol inhaler shortness of breath or wheezing #6.7 grams metoprolol succinate 25 mg 12.5 mg PO DAILY #90 tabs 08/07/22 tablet,extended release 24 hr fluticasone propionate 220 2 puff inhalation BID #12 grams 09/25/22 mcg/actuation HFA aerosol inhaler potassium chloride 8 mEq 8 meq PO DAILY #90 caps 09/25/22 capsule,extended release pramipexole 0.5 mg tablet 0.5 mg PO BEDTIME restless leg #90 10/09/22 tabs ondansetron 4 mg disintegrating 4 mg PO Q6H PRN nausea and 10/16/22 tablet vomiting #7 tabs Allergies Allergy/AdvReac Type Severity Reaction Status Date / Time animal dander [ANIMAL DANDER] Allergy Intermediate ITCHY Verified 10/19/22 08:44 WATERY EYES AND SNEEZING grass pollen AdvReac Intermediate itching Verified 10/19/22 08:44 house dust AdvReac Intermediate itching Verified 10/19/22 08:44 Review of Systems <Isamar Price DO - Last Filed: 10/09/22 12:57> Review of Systems ROS Unobtainable: All systems reviewed & are unremarkable except as noted in HPI and below Patient History <Isamar Price DO - Last Filed: 10/09/22 12:57> Medical History (Updated 10/26/22 @ 00:01 by ) Acquired hypothyroidism (~2016) Alcohol abuse Allergic rhinitis Cardiac arrest with ventricular fibrillation Cervical high risk HPV (human papillomavirus) test positive Depression (Unknown) Hypokalemia Morbid obesity Non-ischemic cardiomyopathy (~10/2022) Obstructive sleep apnea Peripheral edema (~2010) Restless leg Varicose veins of both lower extremities with complications (~2010) Surgical History (Updated 10/19/22 @ 08:55 by Jesse Jain MD) History of Vasu-en-Y gastric bypass History of thyroidectomy S/P implantation of automatic cardioverter/defibrillator (AICD) (~10/2022) Status post breast lumpectomy Status post laparoscopic cholecystectomy Family History Sister Age: 59 History of breast cancer Son Drug overdose Social History marital status: household members: family occupational status: employed Smoking Status: Current every day smoker (Has not smoked since 10/08/22.) Tobacco: How many years used: 3 second hand exposure: No alcohol intake: current substance use type: does not use Type(s) of exercise: none Smoking Status: Current every day smoker tobacco type: cigarettes alcohol intake frequency: other Alcohol type: beer, wine and hard liquor Substance Use Type: does not use Exam <Isamar Price DO - Last Filed: 10/09/22 12:57> Narrative Exam Narrative: GEN: Patient was pale, cyanotic on initial evaluation. Nonresponsive. HEENT: Atraumatic, pupils reactive. HEART: No pulse LUNGS:Lungs breath sounds equal bilaterally with BVM. chest mo Chest movesves symmetrically. Patient has some agonal respirations. ABD:bowel sounds normal, soft, non-tender, no guarding, rebound, rigidity, no masses noted, no hepatosplenomegaly, bilateral swelling. :No CVA tenderness MSCL: Non-tender, contracted upper extremities. NEURO: GCS 3 Initial Vital Signs Initial Vital Signs: Vital Signs Temperature 99.9 F H 10/08/22 09:56 Pulse Rate 63 10/08/22 09:56 Respiratory Rate 18 10/08/22 09:56 Blood Pressure 159/94 H 10/08/22 09:56 Pulse Oximetry 99 10/08/22 09:56 Oxygen Delivery Method 10/08/22 09:56 <Yessi Garcia DO - Last Filed: 10/16/22 06:55> Initial Vital Signs Initial Vital Signs: Vital Signs Temperature 99.9 F H 10/08/22 09:56 Pulse Rate 63 10/08/22 09:56 Respiratory Rate 18 10/08/22 09:56 Blood Pressure 159/94 H 10/08/22 09:56 Pulse Oximetry 99 10/08/22 09:56 Oxygen Delivery Method 10/08/22 09:56 <Akshat Mercado DO - Last Filed: 10/10/22 18:52> Initial Vital Signs Initial Vital Signs: Vital Signs Temperature 99.9 F H 10/08/22 09:56 Pulse Rate 63 10/08/22 09:56 Respiratory Rate 18 10/08/22 09:56 Blood Pressure 159/94 H 10/08/22 09:56 Pulse Oximetry 99 10/08/22 09:56 Oxygen Delivery Method 10/08/22 09:56 <Natalie Barkley MD - Last Filed: 10/12/22 06:24> Initial Vital Signs Initial Vital Signs: Vital Signs Temperature 99.9 F H 10/08/22 09:56 Pulse Rate 63 10/08/22 09:56 Respiratory Rate 18 10/08/22 09:56 Blood Pressure 159/94 H 10/08/22 09:56 Pulse Oximetry 99 10/08/22 09:56 Oxygen Delivery Method 10/08/22 09:56 <Jarad Lucas MD - Last Filed: 11/08/22 15:41> Initial Vital Signs Initial Vital Signs: Vital Signs Temperature 99.9 F H 10/08/22 09:56 Pulse Rate 63 10/08/22 09:56 Respiratory Rate 18 10/08/22 09:56 Blood Pressure 159/94 H 10/08/22 09:56 Pulse Oximetry 99 10/08/22 09:56 Oxygen Delivery Method 10/08/22 09:56 <Willie Miller DO - Last Filed: 10/11/22 12:01> Initial Vital Signs Initial Vital Signs: Vital Signs Temperature 99.9 F H 10/08/22 09:56 Pulse Rate 63 10/08/22 09:56 Respiratory Rate 18 10/08/22 09:56 Blood Pressure 159/94 H 10/08/22 09:56 Pulse Oximetry 99 10/08/22 09:56 Oxygen Delivery Method 10/08/22 09:56 Procedures <Isamar Price DO - Last Filed: 10/09/22 12:57> Cardioversion Consent Signed: No Indication: CPR in progress Stability: Unstable Number of attempts (shocks): 1 Cardiac rhythm post-cardioversion: atrial fibrillation Additional Comments: Successful cardioversion Intraosseous Left Tibia: IO Instrument Used to Penetrate the Cortex: battery powered IO drill Patient Tolerated Procedure: No complications Complications: none Course <Isamar Price, DO - Last Filed: 10/09/22 12:57> Orders Ordered: Discontinued Medications Acetaminophen (Acetaminophen 325 Mg Tablet) 650 mg PO Q4H PRN PRN Reason: Fever/Mild Pain (1-3) Last Admin: 10/10/22 22:06 Dose: 650 mg Documented By: Admin: 10/09/22 21:09 Dose: 650 mg Documented By: Admin: 10/09/22 10:39 Dose: 650 mg Documented By: GUERLINE Hydrocodone Bitart/Acetaminophen (Hydrocodone/Acet 5/325 Tablet) 1 tab PO NOW ONE Stop: 10/10/22 00:13 Last Admin: 10/10/22 00:16 Dose: 1 tab Documented By: YADIRA Aspirin (Aspirin 81 Mg Chew Tab) 324 mg PO NOW ONE Stop: 10/08/22 18:39 Last Admin: 10/08/22 19:17 Dose: 324 mg Documented By: GUERLINE Aspirin (Aspirin 81 Mg Chew Tab) 324 mg PO DAILY [facility] Last Admin: 10/12/22 09:25 Dose: 324 mg Documented By: Admin: 10/11/22 10:58 Dose: 324 mg Documented By: Admin: 10/10/22 10:01 Dose: 324 mg Documented By: Admin: 10/09/22 15:57 Dose: 324 mg Documented By: JOSIAH Atorvastatin Calcium (Atorvastatin 20 Mg Tablet) 80 mg PO NOW ONE Stop: 10/08/22 18:39 Last Admin: 10/08/22 19:24 Dose: 80 mg Documented By: GUERLINE Atorvastatin Calcium (Atorvastatin 20 Mg Tablet) 80 mg PO BEDTIME [facility] Last Admin: 10/11/22 21:17 Dose: 80 mg Documented By: Admin: 10/10/22 20:51 Dose: 80 mg Documented By: Admin: 10/09/22 21:10 Dose: 80 mg Documented By: YADIRA Diphenhydramine HCl (Diphenhydramine 50 Mg/Ml Vial) 25 mg IV NOW ONE Stop: 10/11/22 23:08 Last Admin: 10/11/22 23:23 Dose: 25 mg Documented By: ASLAZAR Fentanyl (Fentanyl 100 Mcg/2 Ml Inj) 50 mcg IV NOW ONE Stop: 10/08/22 13:24 Last Admin: 10/08/22 13:25 Dose: 50 mcg Documented By: GUERLINE Fentanyl (Fentanyl 100 Mcg/2 Ml Inj) 50 mcg IV Q1H PRN PRN Reason: Pain, Severe (7-10) Stop: 10/10/22 00:00 Last Admin: 10/09/22 10:38 Dose: 50 mcg Documented By: Admin: 10/09/22 05:33 Dose: 50 mcg Documented By: JOSIAH(2) Admin: 10/09/22 02:25 Dose: 50 mcg Documented By: JOSIAH(2) Admin: 10/08/22 22:10 Dose: 50 mcg Documented By: JOSIAH(2) Admin: 10/08/22 18:33 Dose: 50 mcg Documented By: Admin: 10/08/22 15:38 Dose: 50 mcg Documented By: GUERLINE Fentanyl (Fentanyl 100 Mcg/2 Ml Inj) 50 mcg IV NOW ONE Stop: 10/11/22 23:08 Last Admin: 10/11/22 23:22 Dose: 50 mcg Documented By: SALAZAR Fentanyl (Fentanyl 100 Mcg/2 Ml Inj) 50 mcg IV Q1H PRN PRN Reason: Pain, Severe (7-10) Last Admin: 10/12/22 04:00 Dose: 50 mcg Documented By: SALAZAR Fluticasone Propionate (Fluticasone 120 Minter/16 Gm Minter.Susp) 1 spray NASAL NOW ONE Stop: 10/09/22 16:13 Last Admin: 10/09/22 16:33 Dose: 1 spray Documented By: JOSIAH Fluticasone Propionate (Fluticasone 120 Minter/16 Gm Minter.Susp) 1 spray NASAL DAILY [facility] Last Admin: 10/12/22 10:01 Dose: 1 spray Documented By: Admin: 10/11/22 11:04 Dose: 1 spray Documented By: Admin: 10/10/22 13:50 Dose: 1 spray Documented By: JOSIAH Furosemide (Furosemide 40 Mg/4 Ml Vial) 40 mg IV NOW ONE Stop: 10/08/22 18:39 Last Admin: 10/08/22 19:18 Dose: 40 mg Documented By: GUERLINE Heparin Sodium (Porcine) (Heparin 5,000 Unit/Ml Vial) 5,000 unit IV NOW ONE Stop: 10/08/22 18:39 Last Admin: 10/08/22 19:18 Dose: 5,000 unit Documented By: GUERLINE Heparin Sodium (Porcine) (Heparin Flush (Cl/Picc/Mid-Line) 50 Unit/5 Ml Syringe) 50 unit IV PRN PRN PRN Reason: Flush Hydromorphone HCl (Hydromorphone 0.5 Mg Inj) 0.5 mg IV Q15MIN PRN PRN Reason: Pain, Last Admin: 10/11/22 01:41 Dose: 0.5 mg Documented By: SALAZAR Sodium Chloride (Normal Saline 0.9%) 1,000 mls @ 1,000 mls/hr IV BOLUS ONE Stop: 10/08/22 11:27 Last Infusion: 10/08/22 11:13 Dose: 0 mls/hr Documented By: Admin: 10/08/22 10:25 Dose: 1,000 mls/hr Documented By: GUERLINE Amiodarone HCl/Dextrose (Nexterone) 360 mg in 200 mls @ 33.333 mls/hr IV NOW ONE; Protocol Stop: 10/08/22 16:29 Last Titration: 10/08/22 16:18 Dose: 0 mls/hr, 0 mls/hr Documented By: Titration: 10/08/22 13:16 Dose: 33.33 mls/hr, 33.33 mls/hr Documented By: Admin: 10/08/22 10:50 Dose: 33.33 mls/hr, 33.33 mls/hr Documented By: GUERLINE Calcium Gluconate 9.3 meq/ (Sodium Chloride) 70 mls @ 140 mls/hr IV NOW ONE Stop: 10/08/22 11:11 Last Infusion: 10/08/22 12:00 Dose: 0 mls/hr Documented By: Admin: 10/08/22 11:15 Dose: 140 mls/hr Documented By: GUERLINE Sodium Chloride (Normal Saline 0.9%) 1,000 mls @ 1,000 mls/hr IV BOLUS ONE Stop: 10/08/22 12:00 Last Infusion: 10/08/22 11:23 Dose: 0 mls/hr Documented By: Admin: 10/08/22 10:50 Dose: 1,000 mls/hr Documented By: GUERLINE Sodium Chloride (Normal Saline 0.9%) 1,000 mls @ 1,000 mls/hr IV BOLUS ONE Stop: 10/08/22 12:03 Last Infusion: 10/08/22 12:10 Dose: 0 mls/hr Documented By: Admin: 10/08/22 11:10 Dose: 1,000 mls/hr Documented By: GUERLINE Phenylephrine HCl 20,000 mcg/ (Dextrose) 250 mls @ 75 mls/hr IV TITRATE SHARON; Protocol Last Titration: 10/09/22 09:00 Dose: 0 mcg/min, 0 mls/hr Documented By: Titration: 10/09/22 05:19 Dose: 0 mcg/min, 0 mls/hr Documented By: RLS(2) Titration: 10/09/22 04:00 Dose: 40 mcg/min, 30 mls/hr Documented By: RLS(2) Admin: 10/09/22 01:32 Dose: 50 mcg/min, 37.5 mls/hr Documented By: Titration: 10/09/22 01:32 Dose: 75 mcg/min, 56.25 mls/hr Documented By: Titration: 10/08/22 21:27 Dose: 75 mcg/min, 56.25 mls/hr Documented By: Admin: 10/08/22 21:18 Dose: 100 mcg/min, 75 mls/hr Documented By: Titration: 10/08/22 21:18 Dose: 100 mcg/min, 75 mls/hr Documented By: Admin: 10/08/22 18:16 Dose: 100 mcg/min, 75 mls/hr Documented By: Titration: 10/08/22 18:15 Dose: 0 mcg/min, 0 mls/hr Documented By: Titration: 10/08/22 17:20 Dose: 0 mcg/min, 0 mls/hr Documented By: Admin: 10/08/22 13:54 Dose: 100 mcg/min, 75 mls/hr Documented By: GUERLINE POTASSIUM CHLORIDE IN WATER (Potassium Cl 10 Meq/100 Ml Sofia) 10 meq in 100 mls @ 100 mls/hr IV Q1H SHARON Stop: 10/08/22 15:14 Last Infusion: 10/08/22 17:39 Dose: 0 mls/hr Documented By: Admin: 10/08/22 16:34 Dose: 100 mls/hr Documented By: Infusion: 10/08/22 16:33 Dose: 0 mls/hr Documented By: Admin: 10/08/22 15:06 Dose: 100 mls/hr Documented By: Infusion: 10/08/22 15:01 Dose: 0 mls/hr Documented By: Admin: 10/08/22 13:52 Dose: 100 mls/hr Documented By: Infusion: 10/08/22 13:15 Dose: 0 mls/hr Documented By: Admin: 10/08/22 12:03 Dose: 100 mls/hr Documented By: GUERLINE Sodium Chloride (Normal Saline 0.9%) 1,000 mls @ 1,000 mls/hr IV BOLUS ONE Stop: 10/08/22 12:07 Last Infusion: 10/09/22 03:12 Dose: 0 mls/hr Documented By: JOSIAH(2) Infusion: 10/08/22 13:16 Dose: 150 mls/hr Documented By: Admin: 10/08/22 11:24 Dose: 150 mls/hr Documented By: GUERLINE Amiodarone HCl/Dextrose (Nexterone) 360 mg in 200 mls @ 16.7 mls/hr IV CONT SHARON; Protocol Stop: 10/09/22 01:44 Last Titration: 10/09/22 04:17 Dose: 0 mls/hr, 0 mls/hr Documented By: JOSIAH(2) Admin: 10/08/22 16:18 Dose: 16.7 mls/hr, 16.7 mls/hr Documented By: GUERLINE Magnesium Sulfate (Magnesium Sulfate) 2 gm in 50 mls @ 25 mls/hr IV NOW ONE Stop: 10/08/22 16:08 Last Infusion: 10/08/22 18:20 Dose: 0 mls/hr Documented By: GUERLINE Co-signed By: AT Admin: 10/08/22 15:54 Dose: 25 mls/hr Documented By: GUERLINE Co-signed By: TABATHA POTASSIUM CHLORIDE IN WATER (Potassium Cl 10 Meq/100 Ml Sofia) 10 meq in 100 mls @ 100 mls/hr IV Q1H SH[facility]ON Stop: 10/08/22 18:14 Last Infusion: 10/08/22 22:16 Dose: 0 mls/hr Documented By: JOSIAH(2) Admin: 10/08/22 21:05 Dose: 100 mls/hr Documented By: Infusion: 10/08/22 21:05 Dose: 0 mls/hr Documented By: Admin: 10/08/22 20:02 Dose: 100 mls/hr Documented By: Infusion: 10/08/22 19:42 Dose: 100 mls/hr Documented By: Admin: 10/08/22 18:42 Dose: 100 mls/hr Documented By: Infusion: 10/08/22 18:41 Dose: 0 mls/hr Documented By: Admin: 10/08/22 17:39 Dose: 100 mls/hr Documented By: GUERLINE Piperacillin Sod/Tazobactam (Sod 4.5 gm/ Sodium Chloride) 100 mls @ 200 mls/hr IV NOW ONE Stop: 10/08/22 14:54 Last Infusion: 10/08/22 15:53 Dose: 0 mls/hr Documented By: Admin: 10/08/22 15:14 Dose: 200 mls/hr Documented By: GUERLINE Lactated Ringer's (Lactated Ringers) 1,000 mls @ 1,000 mls/hr IV BOLUS ONE Stop: 10/08/22 16:12 Last Infusion: 10/08/22 17:21 Dose: 0 mls/hr Documented By: Admin: 10/08/22 15:50 Dose: 1,000 mls/hr Documented By: GUERLINE Heparin Sodium/Dextrose (Heparin Drip) 25,000 unit in 500 mls @ 20 mls/hr IV CONT SHARON; Protocol Last Titration: 10/12/22 11:20 Dose: 1,100 units/hr, 22 mls/hr Documented By: Admin: 10/11/22 21:41 Dose: 1,100 units/hr, 22 mls/hr Documented By: Titration: 10/11/22 21:38 Dose: 1,100 units/hr, 22 mls/hr Documented By: Admin: 10/10/22 22:34 Dose: 1,100 units/hr, 22 mls/hr Documented By: Titration: 10/10/22 22:34 Dose: 1,100 units/hr, 22 mls/hr Documented By: Titration: 10/10/22 19:29 Dose: 1,100 units/hr, 22 mls/hr Documented By: Titration: 10/10/22 13:17 Dose: 1,050 units/hr, 21 mls/hr Documented By: Titration: 10/10/22 05:45 Dose: 1,000 units/hr, 20 mls/hr Documented By: Admin: 10/09/22 22:04 Dose: 950 units/hr, 19 mls/hr Documented By: Titration: 10/09/22 21:20 Dose: 950 units/hr, 19 mls/hr Documented By: Titration: 10/09/22 01:37 Dose: 950 units/hr, 19 mls/hr Documented By: RLS(2) Admin: 10/08/22 19:20 Dose: 1,000 units/hr, 20 mls/hr Documented By: KLS Ceftriaxone Sodium 1,000 mg/ (Sodium Chloride) 100 mls @ 200 mls/hr IV NOW ONE Stop: 10/08/22 21:33 Last Infusion: 10/08/22 22:46 Dose: 0 mls/hr Documented By: RLS(2) Admin: 10/08/22 22:09 Dose: 200 mls/hr Documented By: RLS(2) Amiodarone HCl/Dextrose (Nexterone) 180 mg in 100 mls @ 16.7 mls/hr IV CONT SHARON; Protocol Stop: 10/09/22 12:15 Last Infusion: 10/09/22 15:41 Dose: 0 mls/hr Documented By: Admin: 10/09/22 06:11 Dose: 16.7 mls/hr Documented By: RLS(2) Ceftriaxone Sodium 1,000 mg/ (Sodium Chloride) 100 mls @ 200 mls/hr IV Q24H SH[facility]ON Last Admin: 10/09/22 07:34 Dose: Not Given Documented By: MLM Ceftriaxone Sodium 1,000 mg/ (Sodium Chloride) 100 mls @ 200 mls/hr IV 2100 SHARON Last Infusion: 10/09/22 21:59 Dose: 0 mls/hr Documented By: Admin: 10/09/22 21:09 Dose: 200 mls/hr Documented By: YADIRA Amiodarone HCl/Dextrose (Nexterone) 180 mg in 100 mls @ 16.7 mls/hr IV CONT SHARON; Protocol Stop: 10/09/22 20:15 Last Admin: 10/09/22 16:26 Dose: Not Given Documented By: JOSIAH Amiodarone HCl/Dextrose (Nexterone) 360 mg in 200 mls @ 16.7 mls/hr IV CONT SHARON; Protocol Last Infusion: 10/12/22 11:20 Dose: 16.7 mls/hr Documented By: Admin: 10/12/22 03:56 Dose: 16.7 mls/hr Documented By: Infusion: 10/12/22 03:56 Dose: 16.7 mls/hr Documented By: Infusion: 10/12/22 03:54 Dose: 16.7 mls/hr Documented By: Admin: 10/11/22 16:31 Dose: 16.7 mls/hr Documented By: Infusion: 10/11/22 16:31 Dose: 16.7 mls/hr Documented By: Admin: 10/11/22 04:53 Dose: 16.7 mls/hr Documented By: Infusion: 10/11/22 04:53 Dose: 16.7 mls/hr Documented By: Infusion: 10/11/22 04:52 Dose: 16.7 mls/hr Documented By: Admin: 10/10/22 18:32 Dose: 16.7 mls/hr Documented By: Infusion: 10/10/22 18:32 Dose: 16.7 mls/hr Documented By: Admin: 10/10/22 07:21 Dose: 16.7 mls/hr Documented By: Infusion: 10/10/22 03:50 Dose: 0 mls/hr Documented By: Admin: 10/09/22 15:42 Dose: 16.7 mls/hr Documented By: JOSIAH POTASSIUM CHLORIDE IN WATER (Potassium Cl 10 Meq/100 Ml Sofia) 10 meq in 100 mls @ 100 mls/hr IV Q1H SH[facility]ON Stop: 10/10/22 13:44 Last Infusion: 10/10/22 14:34 Dose: 0 mls/hr Documented By: Admin: 10/10/22 13:23 Dose: 100 mls/hr Documented By: Infusion: 10/10/22 13:16 Dose: 0 mls/hr Documented By: Admin: 10/10/22 12:09 Dose: 100 mls/hr Documented By: JOSIAH Magnesium Sulfate (Magnesium Sulfate) 2 gm in 50 mls @ 25 mls/hr IV NOW ONE Stop: 10/10/22 15:34 Last Infusion: 10/10/22 15:49 Dose: 0 mls/hr Documented By: JOSIAH Co-signed By: [facility] Admin: 10/10/22 13:52 Dose: 25 mls/hr Documented By: JOSIAH Co-signed By: KUNAL Calcium Gluconate 4.65 meq/ (Sodium Chloride) 60 mls @ 180 mls/hr IV NOW ONE Stop: 10/11/22 08:45 Last Infusion: 10/11/22 09:30 Dose: 0 mls/hr Documented By: Admin: 10/11/22 09:08 Dose: 180 mls/hr Documented By: JOSIAH Magnesium Sulfate (Magnesium Sulfate) 2 gm in 50 mls @ 150 mls/hr IV NOW ONE Stop: 10/11/22 08:45 Last Infusion: 10/11/22 10:35 Dose: 0 mls/hr Documented By: JOSIAH Co-signed By: KAMRAN Admin: 10/11/22 08:43 Dose: 150 mls/hr Documented By: DIANA Co-signed By: VIRGINIE POTASSIUM CHLORIDE IN WATER (Potassium Cl 10 Meq/100 Ml Sofia) 10 meq in 100 mls @ 100 mls/hr IV Q1H SHARON Stop: 10/11/22 12:29 Last Infusion: 10/11/22 16:03 Dose: 0 mls/hr Documented By: Admin: 10/11/22 13:03 Dose: 100 mls/hr Documented By: Infusion: 10/11/22 12:55 Dose: 100 mls/hr Documented By: Admin: 10/11/22 11:55 Dose: 100 mls/hr Documented By: Infusion: 10/11/22 11:55 Dose: 0 mls/hr Documented By: Admin: 10/11/22 10:58 Dose: 100 mls/hr Documented By: Infusion: 10/11/22 10:42 Dose: 100 mls/hr Documented By: Admin: 10/11/22 09:42 Dose: 100 mls/hr Documented By: JOSIAH Levothyroxine Sodium (Levothyroxine 125 Mcg Tablet) 125 mcg PO DAILY@0600 [facility] Last Admin: 10/12/22 07:00 Dose: 125 mcg Documented By: Admin: 10/11/22 08:00 Dose: 125 mcg Documented By: Admin: 10/10/22 06:39 Dose: 125 mcg Documented By: Admin: 10/09/22 12:43 Dose: Not Given Documented By: GUERLINE Lidocaine (Lidocaine Patch 1 Each Adh..Patch) 1 each TOP DAILY [facility] Last Admin: 10/12/22 09:25 Dose: 1 each Documented By: Admin: 10/12/22 07:09 Dose: 1 each Documented By: Admin: 10/11/22 10:58 Dose: 1 each Documented By: Admin: 10/10/22 10:02 Dose: 1 each Documented By: Admin: 10/09/22 15:15 Dose: 1 each Documented By: JOSIAH Loratadine (Loratadine 10 Mg Tablet) 10 mg PO NOW ONE Stop: 10/09/22 16:11 Last Admin: 10/09/22 16:34 Dose: 10 mg Documented By: JOSIAH Loratadine (Loratadine 10 Mg Tablet) 10 mg PO DAILY [facility] Last Admin: 10/12/22 09:29 Dose: 10 mg Documented By: Admin: 10/11/22 11:05 Dose: 10 mg Documented By: Admin: 10/10/22 13:49 Dose: 10 mg Documented By: JOSIAH Lorazepam (Lorazepam 2 Mg/Ml Inj) 0.5 mg IV Q6HR PRN PRN Reason: Nausea Stop: 10/10/22 00:00 Methotrexate (Methotrexate 2.5 Mg Tablet) 10 mg PO Fr@0900 [facility] Morphine Sulfate (Morphine 4 Mg/Ml Inj) 4 mg IV NOW ONE Stop: 10/12/22 10:13 Last Admin: 10/12/22 11:02 Dose: 4 mg Documented By: GUERLINE Ondansetron HCl (Ondansetron 4 Mg/2 Ml Inj) 4 mg IV NOW PRN PRN Reason: Nausea And Vomiting Last Admin: 10/08/22 11:09 Dose: 4 mg Documented By: GUERLINE Ondansetron HCl (Ondansetron 4 Mg/2 Ml Inj) 4 mg IV Q6H PRN PRN Reason: Nausea And Vomiting Last Admin: 10/11/22 01:46 Dose: 4 mg Documented By: Admin: 10/10/22 07:33 Dose: 4 mg Documented By: JOSIAH Pantoprazole Sodium (Pantoprazole 40 Mg Vial) 40 mg IV NOW ONE Stop: 10/11/22 08:25 Last Admin: 10/11/22 08:46 Dose: 40 mg Documented By: DIANA Potassium Chloride (Potassium Chloride 20 Meq Tab) 20 meq PO NOW ONE Stop: 10/10/22 11:43 Last Admin: 10/10/22 12:09 Dose: 20 meq Documented By: JOSIAH Pramipexole Dihydrochloride (Pramipexole 0.25 Mg Tablet) 0.5 mg PO BEDTIME [facility] Last Admin: 10/11/22 21:38 Dose: 0.5 mg Documented By: Admin: 10/10/22 21:22 Dose: 0.5 mg Documented By: Admin: 10/09/22 21:09 Dose: 0.5 mg Documented By: Admin: 10/08/22 22:59 Dose: 0.5 mg Documented By: JOSIAH(2) Tramadol HCl (Tramadol 50 Mg Prepack) 1 bottle MISC SEEINSTR ONE Stop: 10/08/22 18:24 Last Admin: 10/08/22 19:05 Dose: Not Given Documented By: GUERLINE Consultations Consultation #1: Dr. Bazan, cardiology. Patient had witnessed VFib arrest had VFib on monitor had defibrillation and discussed continuing amiodarone. Discussed pressors she is been hypotensive he would potentially switch over to phenylephrine. Unsure if this is truly a cardiac cause he does recommend replacing potassium at 3 point blurry, we are replacing calcium. Initial troponin and BNP are pending but patient does not appear to be fluid overloaded. Time: 11:03 Consultation #2: Dr. Diamond, [facility]. Kindly placed central line. Consultation #3: SPoke with Dr. Bazan again. Patient recommended have Mag level greater than 2, potassium greater than 4 to replace these discussed replaced calcium, CTA abdomen pelvis pending. Troponin is positive but this is post electrical shock and CPR he does not recommend starting heparin drip at this time. Repeat EKG does not show dynamic changes but patient's trope is positive. Echo is hopefull y going to be performed today and he is going to chat with the coordinator at [facility] to try to have her tripped over sooner as we have not found another clear cause of her cardiac arrest. Additional Consultation(s): Dr. Bazan, 1830: Patient does have a change on her ECHO she is 35-40% and has new focal wall motion abnormalities. Patient needs asa, statin and can start heparin gtt. He has spoke to coordinator to prioritize patient for transfer for cardiac cath and ICD placement. Vital Signs Vital signs: Vital Signs - 8 hr 10/11/22 22:30 10/11/22 23:00 10/11/22 23:00 Temperature 99.0 F 98.8 F Pulse Rate 65 63 Respiratory Rate 21 15 Blood Pressure 128/73 Pulse Oximetry 94 92 10/11/22 23:30 10/12/22 00:00 10/12/22 00:00 Temperature 98.6 F 98.6 F Pulse Rate 59 L 57 L Respiratory Rate 28 H 15 Blood Pressure 118/64 Pulse Oximetry 86 L 97 10/12/22 00:30 10/12/22 01:00 10/12/22 01:00 Temperature 98.4 F 98.2 F Pulse Rate 55 L 56 L Respiratory Rate 13 35 H Blood Pressure 96/53 L Pulse Oximetry 99 97 10/12/22 01:30 10/12/22 02:00 10/12/22 02:00 Temperature 98.2 F 98.2 F Pulse Rate 57 L 57 L Respiratory Rate 24 14 Blood Pressure 105/62 Pulse Oximetry 97 98 10/12/22 02:30 Temperature 98.2 F Pulse Rate 58 L Respiratory Rate 14 Blood Pressure Pulse Oximetry 97 <Yessi Garcia, DO - Last Filed: 10/16/22 06:55> Orders Ordered: Discontinued Medications Acetaminophen (Acetaminophen 325 Mg Tablet) 650 mg PO Q4H PRN PRN Reason: Fever/Mild Pain (1-3) Last Admin: 10/10/22 22:06 Dose: 650 mg Documented By: Admin: 10/09/22 21:09 Dose: 650 mg Documented By: Admin: 10/09/22 10:39 Dose: 650 mg Documented By: GUERLINE Hydrocodone Bitart/Acetaminophen (Hydrocodone/Acet 5/325 Tablet) 1 tab PO NOW ONE Stop: 10/10/22 00:13 Last Admin: 10/10/22 00:16 Dose: 1 tab Documented By: YADIRA Aspirin (Aspirin 81 Mg Chew Tab) 324 mg PO NOW ONE Stop: 10/08/22 18:39 Last Admin: 10/08/22 19:17 Dose: 324 mg Documented By: GUERLINE Aspirin (Aspirin 81 Mg Chew Tab) 324 mg PO DAILY [facility] Last Admin: 10/12/22 09:25 Dose: 324 mg Documented By: Admin: 10/11/22 10:58 Dose: 324 mg Documented By: Admin: 10/10/22 10:01 Dose: 324 mg Documented By: Admin: 10/09/22 15:57 Dose: 324 mg Documented By: JOSIAH Atorvastatin Calcium (Atorvastatin 20 Mg Tablet) 80 mg PO NOW ONE Stop: 10/08/22 18:39 Last Admin: 10/08/22 19:24 Dose: 80 mg Documented By: GUERLINE Atorvastatin Calcium (Atorvastatin 20 Mg Tablet) 80 mg PO BEDTIME [facility] Last Admin: 10/11/22 21:17 Dose: 80 mg Documented By: Admin: 10/10/22 20:51 Dose: 80 mg Documented By: Admin: 10/09/22 21:10 Dose: 80 mg Documented By: YADIRA Diphenhydramine HCl (Diphenhydramine 50 Mg/Ml Vial) 25 mg IV NOW ONE Stop: 10/11/22 23:08 Last Admin: 10/11/22 23:23 Dose: 25 mg Documented By: SALAZAR Fentanyl (Fentanyl 100 Mcg/2 Ml Inj) 50 mcg IV NOW ONE Stop: 10/08/22 13:24 Last Admin: 10/08/22 13:25 Dose: 50 mcg Documented By: GUERLINE Fentanyl (Fentanyl 100 Mcg/2 Ml Inj) 50 mcg IV Q1H PRN PRN Reason: Pain, Severe (7-10) Stop: 10/10/22 00:00 Last Admin: 10/09/22 10:38 Dose: 50 mcg Documented By: Admin: 10/09/22 05:33 Dose: 50 mcg Documented By: JOSIAH(2) Admin: 10/09/22 02:25 Dose: 50 mcg Documented By: JOSIAH(2) Admin: 10/08/22 22:10 Dose: 50 mcg Documented By: JOSIAH(2) Admin: 10/08/22 18:33 Dose: 50 mcg Documented By: Admin: 10/08/22 15:38 Dose: 50 mcg Documented By: GUERLINE Fentanyl (Fentanyl 100 Mcg/2 Ml Inj) 50 mcg IV NOW ONE Stop: 10/11/22 23:08 Last Admin: 10/11/22 23:22 Dose: 50 mcg Documented By: SALAZAR Fentanyl (Fentanyl 100 Mcg/2 Ml Inj) 50 mcg IV Q1H PRN PRN Reason: Pain, Severe (7-10) Last Admin: 10/12/22 04:00 Dose: 50 mcg Documented By: SALAZAR Fluticasone Propionate (Fluticasone 120 Minter/16 Gm Minter.Susp) 1 spray NASAL NOW ONE Stop: 10/09/22 16:13 Last Admin: 10/09/22 16:33 Dose: 1 spray Documented By: JOSIAH Fluticasone Propionate (Fluticasone 120 Minter/16 Gm Minter.Susp) 1 spray NASAL DAILY [facility] Last Admin: 10/12/22 10:01 Dose: 1 spray Documented By: Admin: 10/11/22 11:04 Dose: 1 spray Documented By: Admin: 10/10/22 13:50 Dose: 1 spray Documented By: JOSIAH Furosemide (Furosemide 40 Mg/4 Ml Vial) 40 mg IV NOW ONE Stop: 10/08/22 18:39 Last Admin: 10/08/22 19:18 Dose: 40 mg Documented By: GUERLINE Heparin Sodium (Porcine) (Heparin 5,000 Unit/Ml Vial) 5,000 unit IV NOW ONE Stop: 10/08/22 18:39 Last Admin: 10/08/22 19:18 Dose: 5,000 unit Documented By: GUERLINE Heparin Sodium (Porcine) (Heparin Flush (Cl/Picc/Mid-Line) 50 Unit/5 Ml Syringe) 50 unit IV PRN PRN PRN Reason: Flush Hydromorphone HCl (Hydromorphone 0.5 Mg Inj) 0.5 mg IV Q15MIN PRN PRN Reason: Pain, Last Admin: 10/11/22 01:41 Dose: 0.5 mg Documented By: SALAZAR Sodium Chloride (Normal Saline 0.9%) 1,000 mls @ 1,000 mls/hr IV BOLUS ONE Stop: 10/08/22 11:27 Last Infusion: 10/08/22 11:13 Dose: 0 mls/hr Documented By: Admin: 10/08/22 10:25 Dose: 1,000 mls/hr Documented By: GUERLINE Amiodarone HCl/Dextrose (Nexterone) 360 mg in 200 mls @ 33.333 mls/hr IV NOW ONE; Protocol Stop: 10/08/22 16:29 Last Titration: 10/08/22 16:18 Dose: 0 mls/hr, 0 mls/hr Documented By: Titration: 10/08/22 13:16 Dose: 33.33 mls/hr, 33.33 mls/hr Documented By: Admin: 10/08/22 10:50 Dose: 33.33 mls/hr, 33.33 mls/hr Documented By: GUERLINE Calcium Gluconate 9.3 meq/ (Sodium Chloride) 70 mls @ 140 mls/hr IV NOW ONE Stop: 10/08/22 11:11 Last Infusion: 10/08/22 12:00 Dose: 0 mls/hr Documented By: Admin: 10/08/22 11:15 Dose: 140 mls/hr Documented By: GUERLINE Sodium Chloride (Normal Saline 0.9%) 1,000 mls @ 1,000 mls/hr IV BOLUS ONE Stop: 10/08/22 12:00 Last Infusion: 10/08/22 11:23 Dose: 0 mls/hr Documented By: Admin: 10/08/22 10:50 Dose: 1,000 mls/hr Documented By: GUERLINE Sodium Chloride (Normal Saline 0.9%) 1,000 mls @ 1,000 mls/hr IV BOLUS ONE Stop: 10/08/22 12:03 Last Infusion: 10/08/22 12:10 Dose: 0 mls/hr Documented By: Admin: 10/08/22 11:10 Dose: 1,000 mls/hr Documented By: GUERLINE Phenylephrine HCl 20,000 mcg/ (Dextrose) 250 mls @ 75 mls/hr IV TITRATE [facility]; Protocol Last Titration: 10/09/22 09:00 Dose: 0 mcg/min, 0 mls/hr Documented By: Titration: 10/09/22 05:19 Dose: 0 mcg/min, 0 mls/hr Documented By: RLS(2) Titration: 10/09/22 04:00 Dose: 40 mcg/min, 30 mls/hr Documented By: RLS(2) Admin: 10/09/22 01:32 Dose: 50 mcg/min, 37.5 mls/hr Documented By: Titration: 10/09/22 01:32 Dose: 75 mcg/min, 56.25 mls/hr Documented By: Titration: 10/08/22 21:27 Dose: 75 mcg/min, 56.25 mls/hr Documented By: Admin: 10/08/22 21:18 Dose: 100 mcg/min, 75 mls/hr Documented By: Titration: 10/08/22 21:18 Dose: 100 mcg/min, 75 mls/hr Documented By: Admin: 10/08/22 18:16 Dose: 100 mcg/min, 75 mls/hr Documented By: Titration: 10/08/22 18:15 Dose: 0 mcg/min, 0 mls/hr Documented By: Titration: 10/08/22 17:20 Dose: 0 mcg/min, 0 mls/hr Documented By: Admin: 10/08/22 13:54 Dose: 100 mcg/min, 75 mls/hr Documented By: GUERLINE POTASSIUM CHLORIDE IN WATER (Potassium Cl 10 Meq/100 Ml Sofia) 10 meq in 100 mls @ 100 mls/hr IV Q1H [facility] Stop: 10/08/22 15:14 Last Infusion: 10/08/22 17:39 Dose: 0 mls/hr Documented By: Admin: 10/08/22 16:34 Dose: 100 mls/hr Documented By: Infusion: 10/08/22 16:33 Dose: 0 mls/hr Documented By: Admin: 10/08/22 15:06 Dose: 100 mls/hr Documented By: Infusion: 10/08/22 15:01 Dose: 0 mls/hr Documented By: Admin: 10/08/22 13:52 Dose: 100 mls/hr Documented By: Infusion: 10/08/22 13:15 Dose: 0 mls/hr Documented By: Admin: 10/08/22 12:03 Dose: 100 mls/hr Documented By: GUERLINE Sodium Chloride (Normal Saline 0.9%) 1,000 mls @ 1,000 mls/hr IV BOLUS ONE Stop: 10/08/22 12:07 Last Infusion: 10/09/22 03:12 Dose: 0 mls/hr Documented By: RLS(2) Infusion: 10/08/22 13:16 Dose: 150 mls/hr Documented By: Admin: 10/08/22 11:24 Dose: 150 mls/hr Documented By: GUERLINE Amiodarone HCl/Dextrose (Nexterone) 360 mg in 200 mls @ 16.7 mls/hr IV CONT [facility]; Protocol Stop: 10/09/22 01:44 Last Titration: 10/09/22 04:17 Dose: 0 mls/hr, 0 mls/hr Documented By: JOSIAH(2) Admin: 10/08/22 16:18 Dose: 16.7 mls/hr, 16.7 mls/hr Documented By: GUERLINE Magnesium Sulfate (Magnesium Sulfate) 2 gm in 50 mls @ 25 mls/hr IV NOW ONE Stop: 10/08/22 16:08 Last Infusion: 10/08/22 18:20 Dose: 0 mls/hr Documented By: GUERLINE Co-signed By: JOANA Admin: 10/08/22 15:54 Dose: 25 mls/hr Documented By: GUERLINE Co-signed By: TABATHA POTASSIUM CHLORIDE IN WATER (Potassium Cl 10 Meq/100 Ml Sofia) 10 meq in 100 mls @ 100 mls/hr IV Q1H [facility] Stop: 10/08/22 18:14 Last Infusion: 10/08/22 22:16 Dose: 0 mls/hr Documented By: JOSIAH(2) Admin: 10/08/22 21:05 Dose: 100 mls/hr Documented By: Infusion: 10/08/22 21:05 Dose: 0 mls/hr Documented By: Admin: 10/08/22 20:02 Dose: 100 mls/hr Documented By: Infusion: 10/08/22 19:42 Dose: 100 mls/hr Documented By: Admin: 10/08/22 18:42 Dose: 100 mls/hr Documented By: Infusion: 10/08/22 18:41 Dose: 0 mls/hr Documented By: Admin: 10/08/22 17:39 Dose: 100 mls/hr Documented By: GUERLINE Piperacillin Sod/Tazobactam (Sod 4.5 gm/ Sodium Chloride) 100 mls @ 200 mls/hr IV NOW ONE Stop: 10/08/22 14:54 Last Infusion: 10/08/22 15:53 Dose: 0 mls/hr Documented By: Admin: 10/08/22 15:14 Dose: 200 mls/hr Documented By: GUERLINE Lactated Ringer's (Lactated Ringers) 1,000 mls @ 1,000 mls/hr IV BOLUS ONE Stop: 10/08/22 16:12 Last Infusion: 10/08/22 17:21 Dose: 0 mls/hr Documented By: Admin: 10/08/22 15:50 Dose: 1,000 mls/hr Documented By: GUERLINE Heparin Sodium/Dextrose (Heparin Drip) 25,000 unit in 500 mls @ 20 mls/hr IV CONT [facility]; Protocol Last Titration: 10/12/22 11:20 Dose: 1,100 units/hr, 22 mls/hr Documented By: Admin: 10/11/22 21:41 Dose: 1,100 units/hr, 22 mls/hr Documented By: Titration: 10/11/22 21:38 Dose: 1,100 units/hr, 22 mls/hr Documented By: Admin: 10/10/22 22:34 Dose: 1,100 units/hr, 22 mls/hr Documented By: Titration: 10/10/22 22:34 Dose: 1,100 units/hr, 22 mls/hr Documented By: Titration: 10/10/22 19:29 Dose: 1,100 units/hr, 22 mls/hr Documented By: Titration: 10/10/22 13:17 Dose: 1,050 units/hr, 21 mls/hr Documented By: Titration: 10/10/22 05:45 Dose: 1,000 units/hr, 20 mls/hr Documented By: Admin: 10/09/22 22:04 Dose: 950 units/hr, 19 mls/hr Documented By: Titration: 10/09/22 21:20 Dose: 950 units/hr, 19 mls/hr Documented By: Titration: 10/09/22 01:37 Dose: 950 units/hr, 19 mls/hr Documented By: JOSIAH(2) Admin: 10/08/22 19:20 Dose: 1,000 units/hr, 20 mls/hr Documented By: GUERLINE Ceftriaxone Sodium 1,000 mg/ (Sodium Chloride) 100 mls @ 200 mls/hr IV NOW ONE Stop: 10/08/22 21:33 Last Infusion: 10/08/22 22:46 Dose: 0 mls/hr Documented By: RLS(2) Admin: 10/08/22 22:09 Dose: 200 mls/hr Documented By: JOSIAH(2) Amiodarone HCl/Dextrose (Nexterone) 180 mg in 100 mls @ 16.7 mls/hr IV CONT [facility]; Protocol Stop: 10/09/22 12:15 Last Infusion: 10/09/22 15:41 Dose: 0 mls/hr Documented By: Admin: 10/09/22 06:11 Dose: 16.7 mls/hr Documented By: JOSIAH(2) Ceftriaxone Sodium 1,000 mg/ (Sodium Chloride) 100 mls @ 200 mls/hr IV Q24H [facility] Last Admin: 10/09/22 07:34 Dose: Not Given Documented By: JASON Ceftriaxone Sodium 1,000 mg/ (Sodium Chloride) 100 mls @ 200 mls/hr IV 2100 [facility] Last Infusion: 10/09/22 21:59 Dose: 0 mls/hr Documented By: Admin: 10/09/22 21:09 Dose: 200 mls/hr Documented By: YADIRA Amiodarone HCl/Dextrose (Nexterone) 180 mg in 100 mls @ 16.7 mls/hr IV CONT [facility]; Protocol Stop: 10/09/22 20:15 Last Admin: 10/09/22 16:26 Dose: Not Given Documented By: JOSIAH Amiodarone HCl/Dextrose (Nexterone) 360 mg in 200 mls @ 16.7 mls/hr IV CONT [facility]; Protocol Last Infusion: 10/12/22 11:20 Dose: 16.7 mls/hr Documented By: Admin: 10/12/22 03:56 Dose: 16.7 mls/hr Documented By: Infusion: 10/12/22 03:56 Dose: 16.7 mls/hr Documented By: Infusion: 10/12/22 03:54 Dose: 16.7 mls/hr Documented By: Admin: 10/11/22 16:31 Dose: 16.7 mls/hr Documented By: Infusion: 10/11/22 16:31 Dose: 16.7 mls/hr Documented By: Admin: 10/11/22 04:53 Dose: 16.7 mls/hr Documented By: Infusion: 10/11/22 04:53 Dose: 16.7 mls/hr Documented By: Infusion: 10/11/22 04:52 Dose: 16.7 mls/hr Documented By: Admin: 10/10/22 18:32 Dose: 16.7 mls/hr Documented By: Infusion: 10/10/22 18:32 Dose: 16.7 mls/hr Documented By: Admin: 10/10/22 07:21 Dose: 16.7 mls/hr Documented By: Infusion: 10/10/22 03:50 Dose: 0 mls/hr Documented By: Admin: 10/09/22 15:42 Dose: 16.7 mls/hr Documented By: JOSIAH POTASSIUM CHLORIDE IN WATER (Potassium Cl 10 Meq/100 Ml Sofia) 10 meq in 100 mls @ 100 mls/hr IV Q1H [facility] Stop: 10/10/22 13:44 Last Infusion: 10/10/22 14:34 Dose: 0 mls/hr Documented By: Admin: 10/10/22 13:23 Dose: 100 mls/hr Documented By: Infusion: 10/10/22 13:16 Dose: 0 mls/hr Documented By: Admin: 10/10/22 12:09 Dose: 100 mls/hr Documented By: JOSIAH Magnesium Sulfate (Magnesium Sulfate) 2 gm in 50 mls @ 25 mls/hr IV NOW ONE Stop: 10/10/22 15:34 Last Infusion: 10/10/22 15:49 Dose: 0 mls/hr Documented By: JOSIAH Co-signed By: RAMANDEEP Admin: 10/10/22 13:52 Dose: 25 mls/hr Documented By: JOSIAH Co-signed By: KUNAL Calcium Gluconate 4.65 meq/ (Sodium Chloride) 60 mls @ 180 mls/hr IV NOW ONE Stop: 10/11/22 08:45 Last Infusion: 10/11/22 09:30 Dose: 0 mls/hr Documented By: Admin: 10/11/22 09:08 Dose: 180 mls/hr Documented By: JOSIAH Magnesium Sulfate (Magnesium Sulfate) 2 gm in 50 mls @ 150 mls/hr IV NOW ONE Stop: 10/11/22 08:45 Last Infusion: 10/11/22 10:35 Dose: 0 mls/hr Documented By: JOSIAH Co-signed By: KAMRAN Admin: 10/11/22 08:43 Dose: 150 mls/hr Documented By: DIANA Co-signed By: VIRGINIE POTASSIUM CHLORIDE IN WATER (Potassium Cl 10 Meq/100 Ml Sofia) 10 meq in 100 mls @ 100 mls/hr IV Q1H [facility] Stop: 10/11/22 12:29 Last Infusion: 10/11/22 16:03 Dose: 0 mls/hr Documented By: Admin: 10/11/22 13:03 Dose: 100 mls/hr Documented By: Infusion: 10/11/22 12:55 Dose: 100 mls/hr Documented By: Admin: 10/11/22 11:55 Dose: 100 mls/hr Documented By: Infusion: 10/11/22 11:55 Dose: 0 mls/hr Documented By: Admin: 10/11/22 10:58 Dose: 100 mls/hr Documented By: Infusion: 10/11/22 10:42 Dose: 100 mls/hr Documented By: Admin: 10/11/22 09:42 Dose: 100 mls/hr Documented By: JOSIAH Levothyroxine Sodium (Levothyroxine 125 Mcg Tablet) 125 mcg PO DAILY@0600 [facility] Last Admin: 10/12/22 07:00 Dose: 125 mcg Documented By: Admin: 10/11/22 08:00 Dose: 125 mcg Documented By: Admin: 10/10/22 06:39 Dose: 125 mcg Documented By: Admin: 10/09/22 12:43 Dose: Not Given Documented By: GUERLINE Lidocaine (Lidocaine Patch 1 Each Adh..Patch) 1 each TOP DAILY [facility] Last Admin: 10/12/22 09:25 Dose: 1 each Documented By: Admin: 10/12/22 07:09 Dose: 1 each Documented By: Admin: 10/11/22 10:58 Dose: 1 each Documented By: Admin: 10/10/22 10:02 Dose: 1 each Documented By: Admin: 10/09/22 15:15 Dose: 1 each Documented By: JOSIAH Loratadine (Loratadine 10 Mg Tablet) 10 mg PO NOW ONE Stop: 10/09/22 16:11 Last Admin: 10/09/22 16:34 Dose: 10 mg Documented By: JOSIAH Loratadine (Loratadine 10 Mg Tablet) 10 mg PO DAILY [facility] Last Admin: 10/12/22 09:29 Dose: 10 mg Documented By: Admin: 10/11/22 11:05 Dose: 10 mg Documented By: Admin: 10/10/22 13:49 Dose: 10 mg Documented By: JOSIAH Lorazepam (Lorazepam 2 Mg/Ml Inj) 0.5 mg IV Q6HR PRN PRN Reason: Nausea Stop: 10/10/22 00:00 Methotrexate (Methotrexate 2.5 Mg Tablet) 10 mg PO Fr@0900 [facility] Morphine Sulfate (Morphine 4 Mg/Ml Inj) 4 mg IV NOW ONE Stop: 10/12/22 10:13 Last Admin: 10/12/22 11:02 Dose: 4 mg Documented By: GUERLINE Ondansetron HCl (Ondansetron 4 Mg/2 Ml Inj) 4 mg IV NOW PRN PRN Reason: Nausea And Vomiting Last Admin: 10/08/22 11:09 Dose: 4 mg Documented By: GUERLINE Ondansetron HCl (Ondansetron 4 Mg/2 Ml Inj) 4 mg IV Q6H PRN PRN Reason: Nausea And Vomiting Last Admin: 10/11/22 01:46 Dose: 4 mg Documented By: Admin: 10/10/22 07:33 Dose: 4 mg Documented By: JOSIAH Pantoprazole Sodium (Pantoprazole 40 Mg Vial) 40 mg IV NOW ONE Stop: 10/11/22 08:25 Last Admin: 10/11/22 08:46 Dose: 40 mg Documented By: DIANA Potassium Chloride (Potassium Chloride 20 Meq Tab) 20 meq PO NOW ONE Stop: 10/10/22 11:43 Last Admin: 10/10/22 12:09 Dose: 20 meq Documented By: JOSIAH Pramipexole Dihydrochloride (Pramipexole 0.25 Mg Tablet) 0.5 mg PO BEDTIME [facility] Last Admin: 10/11/22 21:38 Dose: 0.5 mg Documented By: Admin: 10/10/22 21:22 Dose: 0.5 mg Documented By: Admin: 10/09/22 21:09 Dose: 0.5 mg Documented By: Admin: 10/08/22 22:59 Dose: 0.5 mg Documented By: RLS(2) Tramadol HCl (Tramadol 50 Mg Prepack) 1 bottle MISC SEEINSTR ONE Stop: 10/08/22 18:24 Last Admin: 10/08/22 19:05 Dose: Not Given Documented By: GUERLINE Vital Signs Vital signs: Vital Signs - 8 hr 10/11/22 22:30 10/11/22 23:00 10/11/22 23:00 Temperature 99.0 F 98.8 F Pulse Rate 65 63 Respiratory Rate 21 15 Blood Pressure 128/73 Pulse Oximetry 94 92 10/11/22 23:30 10/12/22 00:00 10/12/22 00:00 Temperature 98.6 F 98.6 F Pulse Rate 59 L 57 L Respiratory Rate 28 H 15 Blood Pressure 118/64 Pulse Oximetry 86 L 97 10/12/22 00:30 10/12/22 01:00 10/12/22 01:00 Temperature 98.4 F 98.2 F Pulse Rate 55 L 56 L Respiratory Rate 13 35 H Blood Pressure 96/53 L Pulse Oximetry 99 97 10/12/22 01:30 10/12/22 02:00 10/12/22 02:00 Temperature 98.2 F 98.2 F Pulse Rate 57 L 57 L Respiratory Rate 24 14 Blood Pressure 105/62 Pulse Oximetry 97 98 10/12/22 02:30 Temperature 98.2 F Pulse Rate 58 L Respiratory Rate 14 Blood Pressure Pulse Oximetry 97 <Akshat Mercado, DO - Last Filed: 10/10/22 18:52> Orders Ordered: Discontinued Medications Acetaminophen (Acetaminophen 325 Mg Tablet) 650 mg PO Q4H PRN PRN Reason: Fever/Mild Pain (1-3) Last Admin: 10/10/22 22:06 Dose: 650 mg Documented By: Admin: 10/09/22 21:09 Dose: 650 mg Documented By: Admin: 10/09/22 10:39 Dose: 650 mg Documented By: GUERLINE Hydrocodone Bitart/Acetaminophen (Hydrocodone/Acet 5/325 Tablet) 1 tab PO NOW ONE Stop: 10/10/22 00:13 Last Admin: 10/10/22 00:16 Dose: 1 tab Documented By: YADIRA Aspirin (Aspirin 81 Mg Chew Tab) 324 mg PO NOW ONE Stop: 10/08/22 18:39 Last Admin: 10/08/22 19:17 Dose: 324 mg Documented By: GUERLINE Aspirin (Aspirin 81 Mg Chew Tab) 324 mg PO DAILY [facility] Last Admin: 10/12/22 09:25 Dose: 324 mg Documented By: Admin: 10/11/22 10:58 Dose: 324 mg Documented By: Admin: 10/10/22 10:01 Dose: 324 mg Documented By: Admin: 10/09/22 15:57 Dose: 324 mg Documented By: JOSIAH Atorvastatin Calcium (Atorvastatin 20 Mg Tablet) 80 mg PO NOW ONE Stop: 10/08/22 18:39 Last Admin: 10/08/22 19:24 Dose: 80 mg Documented By: GUERLINE Atorvastatin Calcium (Atorvastatin 20 Mg Tablet) 80 mg PO BEDTIME [facility] Last Admin: 10/11/22 21:17 Dose: 80 mg Documented By: Admin: 10/10/22 20:51 Dose: 80 mg Documented By: Admin: 10/09/22 21:10 Dose: 80 mg Documented By: YADIRA Diphenhydramine HCl (Diphenhydramine 50 Mg/Ml Vial) 25 mg IV NOW ONE Stop: 10/11/22 23:08 Last Admin: 10/11/22 23:23 Dose: 25 mg Documented By: SALAZAR Fentanyl (Fentanyl 100 Mcg/2 Ml Inj) 50 mcg IV NOW ONE Stop: 10/08/22 13:24 Last Admin: 10/08/22 13:25 Dose: 50 mcg Documented By: GUERLINE Fentanyl (Fentanyl 100 Mcg/2 Ml Inj) 50 mcg IV Q1H PRN PRN Reason: Pain, Severe (7-10) Stop: 10/10/22 00:00 Last Admin: 10/09/22 10:38 Dose: 50 mcg Documented By: Admin: 10/09/22 05:33 Dose: 50 mcg Documented By: JOSIAH(2) Admin: 10/09/22 02:25 Dose: 50 mcg Documented By: JOSIAH(2) Admin: 10/08/22 22:10 Dose: 50 mcg Documented By: JOSIAH(2) Admin: 10/08/22 18:33 Dose: 50 mcg Documented By: Admin: 10/08/22 15:38 Dose: 50 mcg Documented By: GUERLINE Fentanyl (Fentanyl 100 Mcg/2 Ml Inj) 50 mcg IV NOW ONE Stop: 10/11/22 23:08 Last Admin: 10/11/22 23:22 Dose: 50 mcg Documented By: SALAZAR Fentanyl (Fentanyl 100 Mcg/2 Ml Inj) 50 mcg IV Q1H PRN PRN Reason: Pain, Severe (7-10) Last Admin: 10/12/22 04:00 Dose: 50 mcg Documented By: SALAZAR Fluticasone Propionate (Fluticasone 120 Minter/16 Gm Minter.Susp) 1 spray NASAL NOW ONE Stop: 10/09/22 16:13 Last Admin: 10/09/22 16:33 Dose: 1 spray Documented By: JOSIAH Fluticasone Propionate (Fluticasone 120 Minter/16 Gm Minter.Susp) 1 spray NASAL DAILY [facility] Last Admin: 10/12/22 10:01 Dose: 1 spray Documented By: Admin: 10/11/22 11:04 Dose: 1 spray Documented By: Admin: 10/10/22 13:50 Dose: 1 spray Documented By: JOSIAH Furosemide (Furosemide 40 Mg/4 Ml Vial) 40 mg IV NOW ONE Stop: 10/08/22 18:39 Last Admin: 10/08/22 19:18 Dose: 40 mg Documented By: GUERLINE Heparin Sodium (Porcine) (Heparin 5,000 Unit/Ml Vial) 5,000 unit IV NOW ONE Stop: 10/08/22 18:39 Last Admin: 10/08/22 19:18 Dose: 5,000 unit Documented By: GUERLINE Heparin Sodium (Porcine) (Heparin Flush (Cl/Picc/Mid-Line) 50 Unit/5 Ml Syringe) 50 unit IV PRN PRN PRN Reason: Flush Hydromorphone HCl (Hydromorphone 0.5 Mg Inj) 0.5 mg IV Q15MIN PRN PRN Reason: Pain, Last Admin: 10/11/22 01:41 Dose: 0.5 mg Documented By: SALAZAR Sodium Chloride (Normal Saline 0.9%) 1,000 mls @ 1,000 mls/hr IV BOLUS ONE Stop: 10/08/22 11:27 Last Infusion: 10/08/22 11:13 Dose: 0 mls/hr Documented By: Admin: 10/08/22 10:25 Dose: 1,000 mls/hr Documented By: GUERLINE Amiodarone HCl/Dextrose (Nexterone) 360 mg in 200 mls @ 33.333 mls/hr IV NOW ONE; Protocol Stop: 10/08/22 16:29 Last Titration: 10/08/22 16:18 Dose: 0 mls/hr, 0 mls/hr Documented By: Titration: 10/08/22 13:16 Dose: 33.33 mls/hr, 33.33 mls/hr Documented By: Admin: 10/08/22 10:50 Dose: 33.33 mls/hr, 33.33 mls/hr Documented By: GUERLINE Calcium Gluconate 9.3 meq/ (Sodium Chloride) 70 mls @ 140 mls/hr IV NOW ONE Stop: 10/08/22 11:11 Last Infusion: 10/08/22 12:00 Dose: 0 mls/hr Documented By: Admin: 10/08/22 11:15 Dose: 140 mls/hr Documented By: GUERLINE Sodium Chloride (Normal Saline 0.9%) 1,000 mls @ 1,000 mls/hr IV BOLUS ONE Stop: 10/08/22 12:00 Last Infusion: 10/08/22 11:23 Dose: 0 mls/hr Documented By: Admin: 10/08/22 10:50 Dose: 1,000 mls/hr Documented By: GUERLINE Sodium Chloride (Normal Saline 0.9%) 1,000 mls @ 1,000 mls/hr IV BOLUS ONE Stop: 10/08/22 12:03 Last Infusion: 10/08/22 12:10 Dose: 0 mls/hr Documented By: Admin: 10/08/22 11:10 Dose: 1,000 mls/hr Documented By: GUERLINE Phenylephrine HCl 20,000 mcg/ (Dextrose) 250 mls @ 75 mls/hr IV TITRATE SHARON; Protocol Last Titration: 10/09/22 09:00 Dose: 0 mcg/min, 0 mls/hr Documented By: Titration: 10/09/22 05:19 Dose: 0 mcg/min, 0 mls/hr Documented By: RLS(2) Titration: 10/09/22 04:00 Dose: 40 mcg/min, 30 mls/hr Documented By: RLS(2) Admin: 10/09/22 01:32 Dose: 50 mcg/min, 37.5 mls/hr Documented By: Titration: 10/09/22 01:32 Dose: 75 mcg/min, 56.25 mls/hr Documented By: Titration: 10/08/22 21:27 Dose: 75 mcg/min, 56.25 mls/hr Documented By: Admin: 10/08/22 21:18 Dose: 100 mcg/min, 75 mls/hr Documented By: Titration: 10/08/22 21:18 Dose: 100 mcg/min, 75 mls/hr Documented By: Admin: 10/08/22 18:16 Dose: 100 mcg/min, 75 mls/hr Documented By: Titration: 10/08/22 18:15 Dose: 0 mcg/min, 0 mls/hr Documented By: Titration: 10/08/22 17:20 Dose: 0 mcg/min, 0 mls/hr Documented By: Admin: 10/08/22 13:54 Dose: 100 mcg/min, 75 mls/hr Documented By: MARICRUZS POTASSIUM CHLORIDE IN WATER (Potassium Cl 10 Meq/100 Ml Sofia) 10 meq in 100 mls @ 100 mls/hr IV Q1H SHARON Stop: 10/08/22 15:14 Last Infusion: 10/08/22 17:39 Dose: 0 mls/hr Documented By: Admin: 10/08/22 16:34 Dose: 100 mls/hr Documented By: Infusion: 10/08/22 16:33 Dose: 0 mls/hr Documented By: Admin: 10/08/22 15:06 Dose: 100 mls/hr Documented By: Infusion: 10/08/22 15:01 Dose: 0 mls/hr Documented By: Admin: 10/08/22 13:52 Dose: 100 mls/hr Documented By: Infusion: 10/08/22 13:15 Dose: 0 mls/hr Documented By: Admin: 10/08/22 12:03 Dose: 100 mls/hr Documented By: GUERLINE Sodium Chloride (Normal Saline 0.9%) 1,000 mls @ 1,000 mls/hr IV BOLUS ONE Stop: 10/08/22 12:07 Last Infusion: 10/09/22 03:12 Dose: 0 mls/hr Documented By: RLS(2) Infusion: 10/08/22 13:16 Dose: 150 mls/hr Documented By: Admin: 10/08/22 11:24 Dose: 150 mls/hr Documented By: GUERLINE Amiodarone HCl/Dextrose (Nexterone) 360 mg in 200 mls @ 16.7 mls/hr IV CONT SHARON; Protocol Stop: 10/09/22 01:44 Last Titration: 10/09/22 04:17 Dose: 0 mls/hr, 0 mls/hr Documented By: JOSIAH(2) Admin: 10/08/22 16:18 Dose: 16.7 mls/hr, 16.7 mls/hr Documented By: GUERLINE Magnesium Sulfate (Magnesium Sulfate) 2 gm in 50 mls @ 25 mls/hr IV NOW ONE Stop: 10/08/22 16:08 Last Infusion: 10/08/22 18:20 Dose: 0 mls/hr Documented By: GUERLINE Co-signed By: JOANA Admin: 10/08/22 15:54 Dose: 25 mls/hr Documented By: GUERLINE Co-signed By: TABATHA POTASSIUM CHLORIDE IN WATER (Potassium Cl 10 Meq/100 Ml Sofia) 10 meq in 100 mls @ 100 mls/hr IV Q1H SHARON Stop: 10/08/22 18:14 Last Infusion: 10/08/22 22:16 Dose: 0 mls/hr Documented By: JOSIAH(2) Admin: 10/08/22 21:05 Dose: 100 mls/hr Documented By: Infusion: 10/08/22 21:05 Dose: 0 mls/hr Documented By: Admin: 10/08/22 20:02 Dose: 100 mls/hr Documented By: Infusion: 10/08/22 19:42 Dose: 100 mls/hr Documented By: Admin: 10/08/22 18:42 Dose: 100 mls/hr Documented By: Infusion: 10/08/22 18:41 Dose: 0 mls/hr Documented By: Admin: 10/08/22 17:39 Dose: 100 mls/hr Documented By: GUERLINE Piperacillin Sod/Tazobactam (Sod 4.5 gm/ Sodium Chloride) 100 mls @ 200 mls/hr IV NOW ONE Stop: 10/08/22 14:54 Last Infusion: 10/08/22 15:53 Dose: 0 mls/hr Documented By: Admin: 10/08/22 15:14 Dose: 200 mls/hr Documented By: GUERLINE Lactated Ringer's (Lactated Ringers) 1,000 mls @ 1,000 mls/hr IV BOLUS ONE Stop: 10/08/22 16:12 Last Infusion: 10/08/22 17:21 Dose: 0 mls/hr Documented By: Admin: 10/08/22 15:50 Dose: 1,000 mls/hr Documented By: GUERLINE Heparin Sodium/Dextrose (Heparin Drip) 25,000 unit in 500 mls @ 20 mls/hr IV CONT SHARON; Protocol Last Titration: 10/12/22 11:20 Dose: 1,100 units/hr, 22 mls/hr Documented By: Admin: 10/11/22 21:41 Dose: 1,100 units/hr, 22 mls/hr Documented By: Titration: 10/11/22 21:38 Dose: 1,100 units/hr, 22 mls/hr Documented By: Admin: 10/10/22 22:34 Dose: 1,100 units/hr, 22 mls/hr Documented By: Titration: 10/10/22 22:34 Dose: 1,100 units/hr, 22 mls/hr Documented By: Titration: 10/10/22 19:29 Dose: 1,100 units/hr, 22 mls/hr Documented By: Titration: 10/10/22 13:17 Dose: 1,050 units/hr, 21 mls/hr Documented By: Titration: 10/10/22 05:45 Dose: 1,000 units/hr, 20 mls/hr Documented By: Admin: 10/09/22 22:04 Dose: 950 units/hr, 19 mls/hr Documented By: Titration: 10/09/22 21:20 Dose: 950 units/hr, 19 mls/hr Documented By: Titration: 10/09/22 01:37 Dose: 950 units/hr, 19 mls/hr Documented By: RLS(2) Admin: 10/08/22 19:20 Dose: 1,000 units/hr, 20 mls/hr Documented By: GUERLINE Ceftriaxone Sodium 1,000 mg/ (Sodium Chloride) 100 mls @ 200 mls/hr IV NOW ONE Stop: 10/08/22 21:33 Last Infusion: 10/08/22 22:46 Dose: 0 mls/hr Documented By: RLS(2) Admin: 10/08/22 22:09 Dose: 200 mls/hr Documented By: RLS(2) Amiodarone HCl/Dextrose (Nexterone) 180 mg in 100 mls @ 16.7 mls/hr IV CONT SHARON; Protocol Stop: 10/09/22 12:15 Last Infusion: 10/09/22 15:41 Dose: 0 mls/hr Documented By: Admin: 10/09/22 06:11 Dose: 16.7 mls/hr Documented By: RLS(2) Ceftriaxone Sodium 1,000 mg/ (Sodium Chloride) 100 mls @ 200 mls/hr IV Q24H [facility] Last Admin: 10/09/22 07:34 Dose: Not Given Documented By: JASON Ceftriaxone Sodium 1,000 mg/ (Sodium Chloride) 100 mls @ 200 mls/hr IV 2100 [facility] Last Infusion: 10/09/22 21:59 Dose: 0 mls/hr Documented By: Admin: 10/09/22 21:09 Dose: 200 mls/hr Documented By: YADIRA Amiodarone HCl/Dextrose (Nexterone) 180 mg in 100 mls @ 16.7 mls/hr IV CONT SHARON; Protocol Stop: 10/09/22 20:15 Last Admin: 10/09/22 16:26 Dose: Not Given Documented By: JOSIAH Amiodarone HCl/Dextrose (Nexterone) 360 mg in 200 mls @ 16.7 mls/hr IV CONT SHARON; Protocol Last Infusion: 10/12/22 11:20 Dose: 16.7 mls/hr Documented By: Admin: 10/12/22 03:56 Dose: 16.7 mls/hr Documented By: Infusion: 10/12/22 03:56 Dose: 16.7 mls/hr Documented By: Infusion: 10/12/22 03:54 Dose: 16.7 mls/hr Documented By: Admin: 10/11/22 16:31 Dose: 16.7 mls/hr Documented By: Infusion: 10/11/22 16:31 Dose: 16.7 mls/hr Documented By: Admin: 10/11/22 04:53 Dose: 16.7 mls/hr Documented By: Infusion: 10/11/22 04:53 Dose: 16.7 mls/hr Documented By: Infusion: 10/11/22 04:52 Dose: 16.7 mls/hr Documented By: Admin: 10/10/22 18:32 Dose: 16.7 mls/hr Documented By: Infusion: 10/10/22 18:32 Dose: 16.7 mls/hr Documented By: Admin: 10/10/22 07:21 Dose: 16.7 mls/hr Documented By: Infusion: 10/10/22 03:50 Dose: 0 mls/hr Documented By: Admin: 10/09/22 15:42 Dose: 16.7 mls/hr Documented By: JOSIAH POTASSIUM CHLORIDE IN WATER (Potassium Cl 10 Meq/100 Ml Sofia) 10 meq in 100 mls @ 100 mls/hr IV Q1H [facility] Stop: 10/10/22 13:44 Last Infusion: 10/10/22 14:34 Dose: 0 mls/hr Documented By: Admin: 10/10/22 13:23 Dose: 100 mls/hr Documented By: Infusion: 10/10/22 13:16 Dose: 0 mls/hr Documented By: Admin: 10/10/22 12:09 Dose: 100 mls/hr Documented By: JOSIAH Magnesium Sulfate (Magnesium Sulfate) 2 gm in 50 mls @ 25 mls/hr IV NOW ONE Stop: 10/10/22 15:34 Last Infusion: 10/10/22 15:49 Dose: 0 mls/hr Documented By: JOSIAH Co-signed By: TIN Admin: 10/10/22 13:52 Dose: 25 mls/hr Documented By: JOSIAH Co-signed By: KUNAL Calcium Gluconate 4.65 meq/ (Sodium Chloride) 60 mls @ 180 mls/hr IV NOW ONE Stop: 10/11/22 08:45 Last Infusion: 10/11/22 09:30 Dose: 0 mls/hr Documented By: Admin: 10/11/22 09:08 Dose: 180 mls/hr Documented By: JOSIAH Magnesium Sulfate (Magnesium Sulfate) 2 gm in 50 mls @ 150 mls/hr IV NOW ONE Stop: 10/11/22 08:45 Last Infusion: 10/11/22 10:35 Dose: 0 mls/hr Documented By: RLS Co-signed By: KAMRAN Admin: 10/11/22 08:43 Dose: 150 mls/hr Documented By: DIANA Co-signed By: VIRGINIE POTASSIUM CHLORIDE IN WATER (Potassium Cl 10 Meq/100 Ml Sofia) 10 meq in 100 mls @ 100 mls/hr IV Q1H [facility] Stop: 10/11/22 12:29 Last Infusion: 10/11/22 16:03 Dose: 0 mls/hr Documented By: Admin: 10/11/22 13:03 Dose: 100 mls/hr Documented By: Infusion: 10/11/22 12:55 Dose: 100 mls/hr Documented By: Admin: 10/11/22 11:55 Dose: 100 mls/hr Documented By: Infusion: 10/11/22 11:55 Dose: 0 mls/hr Documented By: Admin: 10/11/22 10:58 Dose: 100 mls/hr Documented By: Infusion: 10/11/22 10:42 Dose: 100 mls/hr Documented By: Admin: 10/11/22 09:42 Dose: 100 mls/hr Documented By: JOSIAH Levothyroxine Sodium (Levothyroxine 125 Mcg Tablet) 125 mcg PO DAILY@0600 [facility] Last Admin: 10/12/22 07:00 Dose: 125 mcg Documented By: Admin: 10/11/22 08:00 Dose: 125 mcg Documented By: Admin: 10/10/22 06:39 Dose: 125 mcg Documented By: Admin: 10/09/22 12:43 Dose: Not Given Documented By: GUERLINE Lidocaine (Lidocaine Patch 1 Each Adh..Patch) 1 each TOP DAILY [facility] Last Admin: 10/12/22 09:25 Dose: 1 each Documented By: Admin: 10/12/22 07:09 Dose: 1 each Documented By: Admin: 10/11/22 10:58 Dose: 1 each Documented By: Admin: 10/10/22 10:02 Dose: 1 each Documented By: Admin: 10/09/22 15:15 Dose: 1 each Documented By: JOSIAH Loratadine (Loratadine 10 Mg Tablet) 10 mg PO NOW ONE Stop: 10/09/22 16:11 Last Admin: 10/09/22 16:34 Dose: 10 mg Documented By: JOSIAH Loratadine (Loratadine 10 Mg Tablet) 10 mg PO DAILY [facility] Last Admin: 10/12/22 09:29 Dose: 10 mg Documented By: Admin: 10/11/22 11:05 Dose: 10 mg Documented By: Admin: 10/10/22 13:49 Dose: 10 mg Documented By: JOSIAH Lorazepam (Lorazepam 2 Mg/Ml Inj) 0.5 mg IV Q6HR PRN PRN Reason: Nausea Stop: 10/10/22 00:00 Methotrexate (Methotrexate 2.5 Mg Tablet) 10 mg PO Fr@0900 [facility] Morphine Sulfate (Morphine 4 Mg/Ml Inj) 4 mg IV NOW ONE Stop: 10/12/22 10:13 Last Admin: 10/12/22 11:02 Dose: 4 mg Documented By: GUERLINE Ondansetron HCl (Ondansetron 4 Mg/2 Ml Inj) 4 mg IV NOW PRN PRN Reason: Nausea And Vomiting Last Admin: 10/08/22 11:09 Dose: 4 mg Documented By: GUERLINE Ondansetron HCl (Ondansetron 4 Mg/2 Ml Inj) 4 mg IV Q6H PRN PRN Reason: Nausea And Vomiting Last Admin: 10/11/22 01:46 Dose: 4 mg Documented By: Admin: 10/10/22 07:33 Dose: 4 mg Documented By: JOSIAH Pantoprazole Sodium (Pantoprazole 40 Mg Vial) 40 mg IV NOW ONE Stop: 10/11/22 08:25 Last Admin: 10/11/22 08:46 Dose: 40 mg Documented By: DIANA Potassium Chloride (Potassium Chloride 20 Meq Tab) 20 meq PO NOW ONE Stop: 10/10/22 11:43 Last Admin: 10/10/22 12:09 Dose: 20 meq Documented By: JOSIAH Pramipexole Dihydrochloride (Pramipexole 0.25 Mg Tablet) 0.5 mg PO BEDTIME [facility] Last Admin: 10/11/22 21:38 Dose: 0.5 mg Documented By: Admin: 10/10/22 21:22 Dose: 0.5 mg Documented By: Admin: 10/09/22 21:09 Dose: 0.5 mg Documented By: Admin: 10/08/22 22:59 Dose: 0.5 mg Documented By: JOSIAH(2) Tramadol HCl (Tramadol 50 Mg Prepack) 1 bottle MISC SEEINSTR ONE Stop: 10/08/22 18:24 Last Admin: 10/08/22 19:05 Dose: Not Given Documented By: GUERLINE Vital Signs Vital signs: Vital Signs - 8 hr 10/11/22 22:30 10/11/22 23:00 10/11/22 23:00 Temperature 99.0 F 98.8 F Pulse Rate 65 63 Respiratory Rate 21 15 Blood Pressure 128/73 Pulse Oximetry 94 92 10/11/22 23:30 10/12/22 00:00 10/12/22 00:00 Temperature 98.6 F 98.6 F Pulse Rate 59 L 57 L Respiratory Rate 28 H 15 Blood Pressure 118/64 Pulse Oximetry 86 L 97 10/12/22 00:30 10/12/22 01:00 10/12/22 01:00 Temperature 98.4 F 98.2 F Pulse Rate 55 L 56 L Respiratory Rate 13 35 H Blood Pressure 96/53 L Pulse Oximetry 99 97 10/12/22 01:30 10/12/22 02:00 10/12/22 02:00 Temperature 98.2 F 98.2 F Pulse Rate 57 L 57 L Respiratory Rate 24 14 Blood Pressure 105/62 Pulse Oximetry 97 98 10/12/22 02:30 Temperature 98.2 F Pulse Rate 58 L Respiratory Rate 14 Blood Pressure Pulse Oximetry 97 <Natalie Barkley MD - Last Filed: 10/12/22 06:24> Orders Ordered: Discontinued Medications Acetaminophen (Acetaminophen 325 Mg Tablet) 650 mg PO Q4H PRN PRN Reason: Fever/Mild Pain (1-3) Last Admin: 10/10/22 22:06 Dose: 650 mg Documented By: Admin: 10/09/22 21:09 Dose: 650 mg Documented By: Admin: 10/09/22 10:39 Dose: 650 mg Documented By: GUERLINE Hydrocodone Bitart/Acetaminophen (Hydrocodone/Acet 5/325 Tablet) 1 tab PO NOW ONE Stop: 10/10/22 00:13 Last Admin: 10/10/22 00:16 Dose: 1 tab Documented By: YADIRA Aspirin (Aspirin 81 Mg Chew Tab) 324 mg PO NOW ONE Stop: 10/08/22 18:39 Last Admin: 10/08/22 19:17 Dose: 324 mg Documented By: GUERLINE Aspirin (Aspirin 81 Mg Chew Tab) 324 mg PO DAILY [facility] Last Admin: 10/12/22 09:25 Dose: 324 mg Documented By: Admin: 10/11/22 10:58 Dose: 324 mg Documented By: Admin: 10/10/22 10:01 Dose: 324 mg Documented By: Admin: 10/09/22 15:57 Dose: 324 mg Documented By: JOSIAH Atorvastatin Calcium (Atorvastatin 20 Mg Tablet) 80 mg PO NOW ONE Stop: 10/08/22 18:39 Last Admin: 10/08/22 19:24 Dose: 80 mg Documented By: GUERLINE Atorvastatin Calcium (Atorvastatin 20 Mg Tablet) 80 mg PO BEDTIME [facility] Last Admin: 10/11/22 21:17 Dose: 80 mg Documented By: Admin: 10/10/22 20:51 Dose: 80 mg Documented By: Admin: 10/09/22 21:10 Dose: 80 mg Documented By: YADIRA Diphenhydramine HCl (Diphenhydramine 50 Mg/Ml Vial) 25 mg IV NOW ONE Stop: 10/11/22 23:08 Last Admin: 10/11/22 23:23 Dose: 25 mg Documented By: SALAZAR Fentanyl (Fentanyl 100 Mcg/2 Ml Inj) 50 mcg IV NOW ONE Stop: 10/08/22 13:24 Last Admin: 10/08/22 13:25 Dose: 50 mcg Documented By: GUERLINE Fentanyl (Fentanyl 100 Mcg/2 Ml Inj) 50 mcg IV Q1H PRN PRN Reason: Pain, Severe (7-10) Stop: 10/10/22 00:00 Last Admin: 10/09/22 10:38 Dose: 50 mcg Documented By: Admin: 10/09/22 05:33 Dose: 50 mcg Documented By: JOSIAH(2) Admin: 10/09/22 02:25 Dose: 50 mcg Documented By: JOSIAH(2) Admin: 10/08/22 22:10 Dose: 50 mcg Documented By: JOSIAH(2) Admin: 10/08/22 18:33 Dose: 50 mcg Documented By: Admin: 10/08/22 15:38 Dose: 50 mcg Documented By: GUERLINE Fentanyl (Fentanyl 100 Mcg/2 Ml Inj) 50 mcg IV NOW ONE Stop: 10/11/22 23:08 Last Admin: 10/11/22 23:22 Dose: 50 mcg Documented By: SALAZAR Fentanyl (Fentanyl 100 Mcg/2 Ml Inj) 50 mcg IV Q1H PRN PRN Reason: Pain, Severe (7-10) Last Admin: 10/12/22 04:00 Dose: 50 mcg Documented By: SALAZAR Fluticasone Propionate (Fluticasone 120 Minter/16 Gm Minter.Susp) 1 spray NASAL NOW ONE Stop: 10/09/22 16:13 Last Admin: 10/09/22 16:33 Dose: 1 spray Documented By: JOSIAH Fluticasone Propionate (Fluticasone 120 Minter/16 Gm Minter.Susp) 1 spray NASAL DAILY [facility] Last Admin: 10/12/22 10:01 Dose: 1 spray Documented By: Admin: 10/11/22 11:04 Dose: 1 spray Documented By: Admin: 10/10/22 13:50 Dose: 1 spray Documented By: JOSIAH Furosemide (Furosemide 40 Mg/4 Ml Vial) 40 mg IV NOW ONE Stop: 10/08/22 18:39 Last Admin: 10/08/22 19:18 Dose: 40 mg Documented By: GUERLINE Heparin Sodium (Porcine) (Heparin 5,000 Unit/Ml Vial) 5,000 unit IV NOW ONE Stop: 10/08/22 18:39 Last Admin: 10/08/22 19:18 Dose: 5,000 unit Documented By: GUERLINE Heparin Sodium (Porcine) (Heparin Flush (Cl/Picc/Mid-Line) 50 Unit/5 Ml Syringe) 50 unit IV PRN PRN PRN Reason: Flush Hydromorphone HCl (Hydromorphone 0.5 Mg Inj) 0.5 mg IV Q15MIN PRN PRN Reason: Pain, Last Admin: 10/11/22 01:41 Dose: 0.5 mg Documented By: SALAZAR Sodium Chloride (Normal Saline 0.9%) 1,000 mls @ 1,000 mls/hr IV BOLUS ONE Stop: 10/08/22 11:27 Last Infusion: 10/08/22 11:13 Dose: 0 mls/hr Documented By: Admin: 10/08/22 10:25 Dose: 1,000 mls/hr Documented By: GUERLINE Amiodarone HCl/Dextrose (Nexterone) 360 mg in 200 mls @ 33.333 mls/hr IV NOW ONE; Protocol Stop: 10/08/22 16:29 Last Titration: 10/08/22 16:18 Dose: 0 mls/hr, 0 mls/hr Documented By: Titration: 10/08/22 13:16 Dose: 33.33 mls/hr, 33.33 mls/hr Documented By: Admin: 10/08/22 10:50 Dose: 33.33 mls/hr, 33.33 mls/hr Documented By: GUERLINE Calcium Gluconate 9.3 meq/ (Sodium Chloride) 70 mls @ 140 mls/hr IV NOW ONE Stop: 10/08/22 11:11 Last Infusion: 10/08/22 12:00 Dose: 0 mls/hr Documented By: Admin: 10/08/22 11:15 Dose: 140 mls/hr Documented By: GUERLINE Sodium Chloride (Normal Saline 0.9%) 1,000 mls @ 1,000 mls/hr IV BOLUS ONE Stop: 10/08/22 12:00 Last Infusion: 10/08/22 11:23 Dose: 0 mls/hr Documented By: Admin: 10/08/22 10:50 Dose: 1,000 mls/hr Documented By: GUERLINE Sodium Chloride (Normal Saline 0.9%) 1,000 mls @ 1,000 mls/hr IV BOLUS ONE Stop: 10/08/22 12:03 Last Infusion: 10/08/22 12:10 Dose: 0 mls/hr Documented By: Admin: 10/08/22 11:10 Dose: 1,000 mls/hr Documented By: GUERLINE Phenylephrine HCl 20,000 mcg/ (Dextrose) 250 mls @ 75 mls/hr IV TITRATE SH[facility]ON; Protocol Last Titration: 10/09/22 09:00 Dose: 0 mcg/min, 0 mls/hr Documented By: Titration: 10/09/22 05:19 Dose: 0 mcg/min, 0 mls/hr Documented By: RLS(2) Titration: 10/09/22 04:00 Dose: 40 mcg/min, 30 mls/hr Documented By: RLS(2) Admin: 10/09/22 01:32 Dose: 50 mcg/min, 37.5 mls/hr Documented By: Titration: 10/09/22 01:32 Dose: 75 mcg/min, 56.25 mls/hr Documented By: Titration: 10/08/22 21:27 Dose: 75 mcg/min, 56.25 mls/hr Documented By: Admin: 10/08/22 21:18 Dose: 100 mcg/min, 75 mls/hr Documented By: Titration: 10/08/22 21:18 Dose: 100 mcg/min, 75 mls/hr Documented By: Admin: 10/08/22 18:16 Dose: 100 mcg/min, 75 mls/hr Documented By: Titration: 10/08/22 18:15 Dose: 0 mcg/min, 0 mls/hr Documented By: Titration: 10/08/22 17:20 Dose: 0 mcg/min, 0 mls/hr Documented By: Admin: 10/08/22 13:54 Dose: 100 mcg/min, 75 mls/hr Documented By: GUERLINE POTASSIUM CHLORIDE IN WATER (Potassium Cl 10 Meq/100 Ml Sofia) 10 meq in 100 mls @ 100 mls/hr IV Q1H [facility] Stop: 10/08/22 15:14 Last Infusion: 10/08/22 17:39 Dose: 0 mls/hr Documented By: Admin: 10/08/22 16:34 Dose: 100 mls/hr Documented By: Infusion: 10/08/22 16:33 Dose: 0 mls/hr Documented By: Admin: 10/08/22 15:06 Dose: 100 mls/hr Documented By: Infusion: 10/08/22 15:01 Dose: 0 mls/hr Documented By: Admin: 10/08/22 13:52 Dose: 100 mls/hr Documented By: Infusion: 10/08/22 13:15 Dose: 0 mls/hr Documented By: Admin: 10/08/22 12:03 Dose: 100 mls/hr Documented By: GUERLINE Sodium Chloride (Normal Saline 0.9%) 1,000 mls @ 1,000 mls/hr IV BOLUS ONE Stop: 10/08/22 12:07 Last Infusion: 10/09/22 03:12 Dose: 0 mls/hr Documented By: JOSIAH(2) Infusion: 10/08/22 13:16 Dose: 150 mls/hr Documented By: Admin: 10/08/22 11:24 Dose: 150 mls/hr Documented By: GUERLINE Amiodarone HCl/Dextrose (Nexterone) 360 mg in 200 mls @ 16.7 mls/hr IV CONT SHARON; Protocol Stop: 10/09/22 01:44 Last Titration: 10/09/22 04:17 Dose: 0 mls/hr, 0 mls/hr Documented By: JOSIAH(2) Admin: 10/08/22 16:18 Dose: 16.7 mls/hr, 16.7 mls/hr Documented By: GUERLINE Magnesium Sulfate (Magnesium Sulfate) 2 gm in 50 mls @ 25 mls/hr IV NOW ONE Stop: 10/08/22 16:08 Last Infusion: 10/08/22 18:20 Dose: 0 mls/hr Documented By: GUERLINE Co-signed By: JOANA Admin: 10/08/22 15:54 Dose: 25 mls/hr Documented By: GUERLINE Co-signed By: TABATHA POTASSIUM CHLORIDE IN WATER (Potassium Cl 10 Meq/100 Ml Sofia) 10 meq in 100 mls @ 100 mls/hr IV Q1H [facility] Stop: 10/08/22 18:14 Last Infusion: 10/08/22 22:16 Dose: 0 mls/hr Documented By: JOSIAH(2) Admin: 10/08/22 21:05 Dose: 100 mls/hr Documented By: Infusion: 10/08/22 21:05 Dose: 0 mls/hr Documented By: Admin: 10/08/22 20:02 Dose: 100 mls/hr Documented By: Infusion: 10/08/22 19:42 Dose: 100 mls/hr Documented By: Admin: 10/08/22 18:42 Dose: 100 mls/hr Documented By: Infusion: 10/08/22 18:41 Dose: 0 mls/hr Documented By: Admin: 10/08/22 17:39 Dose: 100 mls/hr Documented By: GUERLINE Piperacillin Sod/Tazobactam (Sod 4.5 gm/ Sodium Chloride) 100 mls @ 200 mls/hr IV NOW ONE Stop: 10/08/22 14:54 Last Infusion: 10/08/22 15:53 Dose: 0 mls/hr Documented By: Admin: 10/08/22 15:14 Dose: 200 mls/hr Documented By: GUERLINE Lactated Ringer's (Lactated Ringers) 1,000 mls @ 1,000 mls/hr IV BOLUS ONE Stop: 10/08/22 16:12 Last Infusion: 10/08/22 17:21 Dose: 0 mls/hr Documented By: Admin: 10/08/22 15:50 Dose: 1,000 mls/hr Documented By: GUERLINE Heparin Sodium/Dextrose (Heparin Drip) 25,000 unit in 500 mls @ 20 mls/hr IV CONT SHARON; Protocol Last Titration: 10/12/22 11:20 Dose: 1,100 units/hr, 22 mls/hr Documented By: Admin: 10/11/22 21:41 Dose: 1,100 units/hr, 22 mls/hr Documented By: Titration: 10/11/22 21:38 Dose: 1,100 units/hr, 22 mls/hr Documented By: Admin: 10/10/22 22:34 Dose: 1,100 units/hr, 22 mls/hr Documented By: Titration: 10/10/22 22:34 Dose: 1,100 units/hr, 22 mls/hr Documented By: Titration: 10/10/22 19:29 Dose: 1,100 units/hr, 22 mls/hr Documented By: Titration: 10/10/22 13:17 Dose: 1,050 units/hr, 21 mls/hr Documented By: Titration: 10/10/22 05:45 Dose: 1,000 units/hr, 20 mls/hr Documented By: Admin: 10/09/22 22:04 Dose: 950 units/hr, 19 mls/hr Documented By: Titration: 10/09/22 21:20 Dose: 950 units/hr, 19 mls/hr Documented By: Titration: 10/09/22 01:37 Dose: 950 units/hr, 19 mls/hr Documented By: JOSIAH(2) Admin: 10/08/22 19:20 Dose: 1,000 units/hr, 20 mls/hr Documented By: GUERLINE Ceftriaxone Sodium 1,000 mg/ (Sodium Chloride) 100 mls @ 200 mls/hr IV NOW ONE Stop: 10/08/22 21:33 Last Infusion: 10/08/22 22:46 Dose: 0 mls/hr Documented By: RLS(2) Admin: 10/08/22 22:09 Dose: 200 mls/hr Documented By: JOSIAH(2) Amiodarone HCl/Dextrose (Nexterone) 180 mg in 100 mls @ 16.7 mls/hr IV CONT SH[facility]ON; Protocol Stop: 10/09/22 12:15 Last Infusion: 10/09/22 15:41 Dose: 0 mls/hr Documented By: Admin: 10/09/22 06:11 Dose: 16.7 mls/hr Documented By: JOSIAH(2) Ceftriaxone Sodium 1,000 mg/ (Sodium Chloride) 100 mls @ 200 mls/hr IV Q24H [facility] Last Admin: 10/09/22 07:34 Dose: Not Given Documented By: MLSavita Ceftriaxone Sodium 1,000 mg/ (Sodium Chloride) 100 mls @ 200 mls/hr IV 2100 [facility] Last Infusion: 10/09/22 21:59 Dose: 0 mls/hr Documented By: Admin: 10/09/22 21:09 Dose: 200 mls/hr Documented By: YADIRA Amiodarone HCl/Dextrose (Nexterone) 180 mg in 100 mls @ 16.7 mls/hr IV CONT [facility]; Protocol Stop: 10/09/22 20:15 Last Admin: 10/09/22 16:26 Dose: Not Given Documented By: JOSIAH Amiodarone HCl/Dextrose (Nexterone) 360 mg in 200 mls @ 16.7 mls/hr IV CONT [facility]; Protocol Last Infusion: 10/12/22 11:20 Dose: 16.7 mls/hr Documented By: Admin: 10/12/22 03:56 Dose: 16.7 mls/hr Documented By: Infusion: 10/12/22 03:56 Dose: 16.7 mls/hr Documented By: Infusion: 10/12/22 03:54 Dose: 16.7 mls/hr Documented By: Admin: 10/11/22 16:31 Dose: 16.7 mls/hr Documented By: Infusion: 10/11/22 16:31 Dose: 16.7 mls/hr Documented By: Admin: 10/11/22 04:53 Dose: 16.7 mls/hr Documented By: Infusion: 10/11/22 04:53 Dose: 16.7 mls/hr Documented By: Infusion: 10/11/22 04:52 Dose: 16.7 mls/hr Documented By: Admin: 10/10/22 18:32 Dose: 16.7 mls/hr Documented By: Infusion: 10/10/22 18:32 Dose: 16.7 mls/hr Documented By: Admin: 10/10/22 07:21 Dose: 16.7 mls/hr Documented By: Infusion: 10/10/22 03:50 Dose: 0 mls/hr Documented By: Admin: 10/09/22 15:42 Dose: 16.7 mls/hr Documented By: JOSIAH POTASSIUM CHLORIDE IN WATER (Potassium Cl 10 Meq/100 Ml Sofia) 10 meq in 100 mls @ 100 mls/hr IV Q1H [facility] Stop: 10/10/22 13:44 Last Infusion: 10/10/22 14:34 Dose: 0 mls/hr Documented By: Admin: 10/10/22 13:23 Dose: 100 mls/hr Documented By: Infusion: 10/10/22 13:16 Dose: 0 mls/hr Documented By: Admin: 10/10/22 12:09 Dose: 100 mls/hr Documented By: JOSIAH Magnesium Sulfate (Magnesium Sulfate) 2 gm in 50 mls @ 25 mls/hr IV NOW ONE Stop: 10/10/22 15:34 Last Infusion: 10/10/22 15:49 Dose: 0 mls/hr Documented By: JOSIAH Co-signed By: RAMANDEEP Admin: 10/10/22 13:52 Dose: 25 mls/hr Documented By: JOSIAH Co-signed By: KUNAL Calcium Gluconate 4.65 meq/ (Sodium Chloride) 60 mls @ 180 mls/hr IV NOW ONE Stop: 10/11/22 08:45 Last Infusion: 10/11/22 09:30 Dose: 0 mls/hr Documented By: Admin: 10/11/22 09:08 Dose: 180 mls/hr Documented By: JOSIAH Magnesium Sulfate (Magnesium Sulfate) 2 gm in 50 mls @ 150 mls/hr IV NOW ONE Stop: 10/11/22 08:45 Last Infusion: 10/11/22 10:35 Dose: 0 mls/hr Documented By: JOSIAH Co-signed By: KAMRAN Admin: 10/11/22 08:43 Dose: 150 mls/hr Documented By: DIANA Co-signed By: VIRGINIE POTASSIUM CHLORIDE IN WATER (Potassium Cl 10 Meq/100 Ml Sofia) 10 meq in 100 mls @ 100 mls/hr IV Q1H SHARON Stop: 10/11/22 12:29 Last Infusion: 10/11/22 16:03 Dose: 0 mls/hr Documented By: Admin: 10/11/22 13:03 Dose: 100 mls/hr Documented By: Infusion: 10/11/22 12:55 Dose: 100 mls/hr Documented By: Admin: 10/11/22 11:55 Dose: 100 mls/hr Documented By: Infusion: 10/11/22 11:55 Dose: 0 mls/hr Documented By: Admin: 10/11/22 10:58 Dose: 100 mls/hr Documented By: Infusion: 10/11/22 10:42 Dose: 100 mls/hr Documented By: Admin: 10/11/22 09:42 Dose: 100 mls/hr Documented By: JOSIAH Levothyroxine Sodium (Levothyroxine 125 Mcg Tablet) 125 mcg PO DAILY@0600 [facility] Last Admin: 10/12/22 07:00 Dose: 125 mcg Documented By: Admin: 10/11/22 08:00 Dose: 125 mcg Documented By: Admin: 10/10/22 06:39 Dose: 125 mcg Documented By: Admin: 10/09/22 12:43 Dose: Not Given Documented By: GUERLINE Lidocaine (Lidocaine Patch 1 Each Adh..Patch) 1 each TOP DAILY [facility] Last Admin: 10/12/22 09:25 Dose: 1 each Documented By: Admin: 10/12/22 07:09 Dose: 1 each Documented By: Admin: 10/11/22 10:58 Dose: 1 each Documented By: Admin: 10/10/22 10:02 Dose: 1 each Documented By: Admin: 10/09/22 15:15 Dose: 1 each Documented By: JOSIAH Loratadine (Loratadine 10 Mg Tablet) 10 mg PO NOW ONE Stop: 10/09/22 16:11 Last Admin: 10/09/22 16:34 Dose: 10 mg Documented By: JOSIAH Loratadine (Loratadine 10 Mg Tablet) 10 mg PO DAILY [facility] Last Admin: 10/12/22 09:29 Dose: 10 mg Documented By: Admin: 10/11/22 11:05 Dose: 10 mg Documented By: Admin: 10/10/22 13:49 Dose: 10 mg Documented By: JOSIAH Lorazepam (Lorazepam 2 Mg/Ml Inj) 0.5 mg IV Q6HR PRN PRN Reason: Nausea Stop: 10/10/22 00:00 Methotrexate (Methotrexate 2.5 Mg Tablet) 10 mg PO Fr@0900 [facility] Morphine Sulfate (Morphine 4 Mg/Ml Inj) 4 mg IV NOW ONE Stop: 10/12/22 10:13 Last Admin: 10/12/22 11:02 Dose: 4 mg Documented By: GUERLINE Ondansetron HCl (Ondansetron 4 Mg/2 Ml Inj) 4 mg IV NOW PRN PRN Reason: Nausea And Vomiting Last Admin: 10/08/22 11:09 Dose: 4 mg Documented By: GUERLINE Ondansetron HCl (Ondansetron 4 Mg/2 Ml Inj) 4 mg IV Q6H PRN PRN Reason: Nausea And Vomiting Last Admin: 10/11/22 01:46 Dose: 4 mg Documented By: Admin: 10/10/22 07:33 Dose: 4 mg Documented By: JOSIAH Pantoprazole Sodium (Pantoprazole 40 Mg Vial) 40 mg IV NOW ONE Stop: 10/11/22 08:25 Last Admin: 10/11/22 08:46 Dose: 40 mg Documented By: DIANA Potassium Chloride (Potassium Chloride 20 Meq Tab) 20 meq PO NOW ONE Stop: 10/10/22 11:43 Last Admin: 10/10/22 12:09 Dose: 20 meq Documented By: JOSIAH Pramipexole Dihydrochloride (Pramipexole 0.25 Mg Tablet) 0.5 mg PO BEDTIME [facility] Last Admin: 10/11/22 21:38 Dose: 0.5 mg Documented By: Admin: 10/10/22 21:22 Dose: 0.5 mg Documented By: Admin: 10/09/22 21:09 Dose: 0.5 mg Documented By: Admin: 10/08/22 22:59 Dose: 0.5 mg Documented By: JOSIAH(2) Tramadol HCl (Tramadol 50 Mg Prepack) 1 bottle MISC SEEINSTR ONE Stop: 10/08/22 18:24 Last Admin: 10/08/22 19:05 Dose: Not Given Documented By: GUERLINE Vital Signs Vital signs: Vital Signs - 8 hr 10/11/22 22:30 10/11/22 23:00 10/11/22 23:00 Temperature 99.0 F 98.8 F Pulse Rate 65 63 Respiratory Rate 21 15 Blood Pressure 128/73 Pulse Oximetry 94 92 10/11/22 23:30 10/12/22 00:00 10/12/22 00:00 Temperature 98.6 F 98.6 F Pulse Rate 59 L 57 L Respiratory Rate 28 H 15 Blood Pressure 118/64 Pulse Oximetry 86 L 97 10/12/22 00:30 10/12/22 01:00 10/12/22 01:00 Temperature 98.4 F 98.2 F Pulse Rate 55 L 56 L Respiratory Rate 13 35 H Blood Pressure 96/53 L Pulse Oximetry 99 97 10/12/22 01:30 10/12/22 02:00 10/12/22 02:00 Temperature 98.2 F 98.2 F Pulse Rate 57 L 57 L Respiratory Rate 24 14 Blood Pressure 105/62 Pulse Oximetry 97 98 10/12/22 02:30 Temperature 98.2 F Pulse Rate 58 L Respiratory Rate 14 Blood Pressure Pulse Oximetry 97 <Jarad Lucas MD - Last Filed: 11/08/22 15:41> Course Course Narrative: I assumed care at change of shift at 7:00 a.m. this morning. Patient was admitted 3 days ago. She is a gastric sleeve, she presented with abdominal pain. She also has a history of AFib. She became unconscious in the waiting area, she was found to be pulses. CPR was initiated. She received 1 dose of IV epinephrine, an organized rhythm returned after 2 shocks. She is on an amiodarone drip and a heparin drip, awaiting eventual transfer after multiple calls him alternate facilities. Echo revealed mildly enlarged left ventricle with EF 35-40%. There is evidence of prior IN. she is currently feeling well, asymptomatic with stable vitals. Labs are reviewed, calcium, magnesium, and potassium levels are all low. Over treated. These labs have improved/normalized. Troponin in decreased from initial 1.6-0.87 this morning. The patient is on multiple list for transfer, no beds have been available. I discussed the case with Dr. Dietz, child development consultant at the [facility], the patient is technically accepted, but is on a waiting list that may require days. Transfer was also reviewed with [facility], and [facility]. They can not accommodate her at this time. Antonella ARENAS is assisting with beds. Her care will continue here.Martinez KIRK 10/11/22. Orders Ordered: Discontinued Medications Acetaminophen (Acetaminophen 325 Mg Tablet) 650 mg PO Q4H PRN PRN Reason: Fever/Mild Pain (1-3) Last Admin: 10/10/22 22:06 Dose: 650 mg Documented By: Admin: 10/09/22 21:09 Dose: 650 mg Documented By: Admin: 10/09/22 10:39 Dose: 650 mg Documented By: GUERLINE Hydrocodone Bitart/Acetaminophen (Hydrocodone/Acet 5/325 Tablet) 1 tab PO NOW ONE Stop: 10/10/22 00:13 Last Admin: 10/10/22 00:16 Dose: 1 tab Documented By: YADIRA Aspirin (Aspirin 81 Mg Chew Tab) 324 mg PO NOW ONE Stop: 10/08/22 18:39 Last Admin: 10/08/22 19:17 Dose: 324 mg Documented By: GUERLINE Aspirin (Aspirin 81 Mg Chew Tab) 324 mg PO DAILY [facility] Last Admin: 10/12/22 09:25 Dose: 324 mg Documented By: Admin: 10/11/22 10:58 Dose: 324 mg Documented By: Admin: 10/10/22 10:01 Dose: 324 mg Documented By: Admin: 10/09/22 15:57 Dose: 324 mg Documented By: JOSIAH Atorvastatin Calcium (Atorvastatin 20 Mg Tablet) 80 mg PO NOW ONE Stop: 10/08/22 18:39 Last Admin: 10/08/22 19:24 Dose: 80 mg Documented By: GUERLINE Atorvastatin Calcium (Atorvastatin 20 Mg Tablet) 80 mg PO BEDTIME [facility] Last Admin: 10/11/22 21:17 Dose: 80 mg Documented By: Admin: 10/10/22 20:51 Dose: 80 mg Documented By: Admin: 10/09/22 21:10 Dose: 80 mg Documented By: YADIRA Diphenhydramine HCl (Diphenhydramine 50 Mg/Ml Vial) 25 mg IV NOW ONE Stop: 10/11/22 23:08 Last Admin: 10/11/22 23:23 Dose: 25 mg Documented By: SALAZAR Fentanyl (Fentanyl 100 Mcg/2 Ml Inj) 50 mcg IV NOW ONE Stop: 10/08/22 13:24 Last Admin: 10/08/22 13:25 Dose: 50 mcg Documented By: GUERLINE Fentanyl (Fentanyl 100 Mcg/2 Ml Inj) 50 mcg IV Q1H PRN PRN Reason: Pain, Severe (7-10) Stop: 10/10/22 00:00 Last Admin: 10/09/22 10:38 Dose: 50 mcg Documented By: Admin: 10/09/22 05:33 Dose: 50 mcg Documented By: JOSIAH(2) Admin: 10/09/22 02:25 Dose: 50 mcg Documented By: JOSIAH(2) Admin: 10/08/22 22:10 Dose: 50 mcg Documented By: JOSIAH(2) Admin: 10/08/22 18:33 Dose: 50 mcg Documented By: Admin: 10/08/22 15:38 Dose: 50 mcg Documented By: GUERLINE Fentanyl (Fentanyl 100 Mcg/2 Ml Inj) 50 mcg IV NOW ONE Stop: 10/11/22 23:08 Last Admin: 10/11/22 23:22 Dose: 50 mcg Documented By: SALAZAR Fentanyl (Fentanyl 100 Mcg/2 Ml Inj) 50 mcg IV Q1H PRN PRN Reason: Pain, Severe (7-10) Last Admin: 10/12/22 04:00 Dose: 50 mcg Documented By: SALAZAR Fluticasone Propionate (Fluticasone 120 Minter/16 Gm Minter.Susp) 1 spray NASAL NOW ONE Stop: 10/09/22 16:13 Last Admin: 10/09/22 16:33 Dose: 1 spray Documented By: JOSIAH Fluticasone Propionate (Fluticasone 120 Minter/16 Gm Minter.Susp) 1 spray NASAL DAILY [facility] Last Admin: 10/12/22 10:01 Dose: 1 spray Documented By: Admin: 10/11/22 11:04 Dose: 1 spray Documented By: Admin: 10/10/22 13:50 Dose: 1 spray Documented By: JOSIAH Furosemide (Furosemide 40 Mg/4 Ml Vial) 40 mg IV NOW ONE Stop: 10/08/22 18:39 Last Admin: 10/08/22 19:18 Dose: 40 mg Documented By: GUERLINE Heparin Sodium (Porcine) (Heparin 5,000 Unit/Ml Vial) 5,000 unit IV NOW ONE Stop: 10/08/22 18:39 Last Admin: 10/08/22 19:18 Dose: 5,000 unit Documented By: GUERLINE Heparin Sodium (Porcine) (Heparin Flush (Cl/Picc/Mid-Line) 50 Unit/5 Ml Syringe) 50 unit IV PRN PRN PRN Reason: Flush Hydromorphone HCl (Hydromorphone 0.5 Mg Inj) 0.5 mg IV Q15MIN PRN PRN Reason: Pain, Last Admin: 10/11/22 01:41 Dose: 0.5 mg Documented By: SALAZAR Sodium Chloride (Normal Saline 0.9%) 1,000 mls @ 1,000 mls/hr IV BOLUS ONE Stop: 10/08/22 11:27 Last Infusion: 10/08/22 11:13 Dose: 0 mls/hr Documented By: Admin: 10/08/22 10:25 Dose: 1,000 mls/hr Documented By: GUERLINE Amiodarone HCl/Dextrose (Nexterone) 360 mg in 200 mls @ 33.333 mls/hr IV NOW ONE; Protocol Stop: 10/08/22 16:29 Last Titration: 10/08/22 16:18 Dose: 0 mls/hr, 0 mls/hr Documented By: Titration: 10/08/22 13:16 Dose: 33.33 mls/hr, 33.33 mls/hr Documented By: Admin: 10/08/22 10:50 Dose: 33.33 mls/hr, 33.33 mls/hr Documented By: GUERLINE Calcium Gluconate 9.3 meq/ (Sodium Chloride) 70 mls @ 140 mls/hr IV NOW ONE Stop: 10/08/22 11:11 Last Infusion: 10/08/22 12:00 Dose: 0 mls/hr Documented By: Admin: 10/08/22 11:15 Dose: 140 mls/hr Documented By: GUERLINE Sodium Chloride (Normal Saline 0.9%) 1,000 mls @ 1,000 mls/hr IV BOLUS ONE Stop: 10/08/22 12:00 Last Infusion: 10/08/22 11:23 Dose: 0 mls/hr Documented By: Admin: 10/08/22 10:50 Dose: 1,000 mls/hr Documented By: GUERLINE Sodium Chloride (Normal Saline 0.9%) 1,000 mls @ 1,000 mls/hr IV BOLUS ONE Stop: 10/08/22 12:03 Last Infusion: 10/08/22 12:10 Dose: 0 mls/hr Documented By: Admin: 10/08/22 11:10 Dose: 1,000 mls/hr Documented By: GUERLINE Phenylephrine HCl 20,000 mcg/ (Dextrose) 250 mls @ 75 mls/hr IV TITRATE SH[facility]ON; Protocol Last Titration: 10/09/22 09:00 Dose: 0 mcg/min, 0 mls/hr Documented By: Titration: 10/09/22 05:19 Dose: 0 mcg/min, 0 mls/hr Documented By: RLS(2) Titration: 10/09/22 04:00 Dose: 40 mcg/min, 30 mls/hr Documented By: RLS(2) Admin: 10/09/22 01:32 Dose: 50 mcg/min, 37.5 mls/hr Documented By: Titration: 10/09/22 01:32 Dose: 75 mcg/min, 56.25 mls/hr Documented By: Titration: 10/08/22 21:27 Dose: 75 mcg/min, 56.25 mls/hr Documented By: Admin: 10/08/22 21:18 Dose: 100 mcg/min, 75 mls/hr Documented By: Titration: 10/08/22 21:18 Dose: 100 mcg/min, 75 mls/hr Documented By: Admin: 10/08/22 18:16 Dose: 100 mcg/min, 75 mls/hr Documented By: Titration: 10/08/22 18:15 Dose: 0 mcg/min, 0 mls/hr Documented By: Titration: 10/08/22 17:20 Dose: 0 mcg/min, 0 mls/hr Documented By: Admin: 10/08/22 13:54 Dose: 100 mcg/min, 75 mls/hr Documented By: GUERLINE POTASSIUM CHLORIDE IN WATER (Potassium Cl 10 Meq/100 Ml Sofia) 10 meq in 100 mls @ 100 mls/hr IV Q1H [facility]ON Stop: 10/08/22 15:14 Last Infusion: 10/08/22 17:39 Dose: 0 mls/hr Documented By: Admin: 10/08/22 16:34 Dose: 100 mls/hr Documented By: Infusion: 10/08/22 16:33 Dose: 0 mls/hr Documented By: Admin: 10/08/22 15:06 Dose: 100 mls/hr Documented By: Infusion: 10/08/22 15:01 Dose: 0 mls/hr Documented By: Admin: 10/08/22 13:52 Dose: 100 mls/hr Documented By: Infusion: 10/08/22 13:15 Dose: 0 mls/hr Documented By: Admin: 10/08/22 12:03 Dose: 100 mls/hr Documented By: GUERLINE Sodium Chloride (Normal Saline 0.9%) 1,000 mls @ 1,000 mls/hr IV BOLUS ONE Stop: 10/08/22 12:07 Last Infusion: 10/09/22 03:12 Dose: 0 mls/hr Documented By: JOSIAH(2) Infusion: 10/08/22 13:16 Dose: 150 mls/hr Documented By: Admin: 10/08/22 11:24 Dose: 150 mls/hr Documented By: GUERLINE Amiodarone HCl/Dextrose (Nexterone) 360 mg in 200 mls @ 16.7 mls/hr IV CONT SHARON; Protocol Stop: 10/09/22 01:44 Last Titration: 10/09/22 04:17 Dose: 0 mls/hr, 0 mls/hr Documented By: JOSIAH(2) Admin: 10/08/22 16:18 Dose: 16.7 mls/hr, 16.7 mls/hr Documented By: GUERLINE Magnesium Sulfate (Magnesium Sulfate) 2 gm in 50 mls @ 25 mls/hr IV NOW ONE Stop: 10/08/22 16:08 Last Infusion: 10/08/22 18:20 Dose: 0 mls/hr Documented By: GUERLINE Co-signed By: AT Admin: 10/08/22 15:54 Dose: 25 mls/hr Documented By: GUERLINE Co-signed By: TABATHA POTASSIUM CHLORIDE IN WATER (Potassium Cl 10 Meq/100 Ml Sofia) 10 meq in 100 mls @ 100 mls/hr IV Q1H [facility] Stop: 10/08/22 18:14 Last Infusion: 10/08/22 22:16 Dose: 0 mls/hr Documented By: JOSIAH(2) Admin: 10/08/22 21:05 Dose: 100 mls/hr Documented By: Infusion: 10/08/22 21:05 Dose: 0 mls/hr Documented By: Admin: 10/08/22 20:02 Dose: 100 mls/hr Documented By: Infusion: 10/08/22 19:42 Dose: 100 mls/hr Documented By: Admin: 10/08/22 18:42 Dose: 100 mls/hr Documented By: Infusion: 10/08/22 18:41 Dose: 0 mls/hr Documented By: Admin: 10/08/22 17:39 Dose: 100 mls/hr Documented By: GUERLINE Piperacillin Sod/Tazobactam (Sod 4.5 gm/ Sodium Chloride) 100 mls @ 200 mls/hr IV NOW ONE Stop: 10/08/22 14:54 Last Infusion: 10/08/22 15:53 Dose: 0 mls/hr Documented By: Admin: 10/08/22 15:14 Dose: 200 mls/hr Documented By: GUERLINE Lactated Ringer's (Lactated Ringers) 1,000 mls @ 1,000 mls/hr IV BOLUS ONE Stop: 10/08/22 16:12 Last Infusion: 10/08/22 17:21 Dose: 0 mls/hr Documented By: Admin: 10/08/22 15:50 Dose: 1,000 mls/hr Documented By: GUERLINE Heparin Sodium/Dextrose (Heparin Drip) 25,000 unit in 500 mls @ 20 mls/hr IV CONT SHARON; Protocol Last Titration: 10/12/22 11:20 Dose: 1,100 units/hr, 22 mls/hr Documented By: Admin: 10/11/22 21:41 Dose: 1,100 units/hr, 22 mls/hr Documented By: Titration: 10/11/22 21:38 Dose: 1,100 units/hr, 22 mls/hr Documented By: Admin: 10/10/22 22:34 Dose: 1,100 units/hr, 22 mls/hr Documented By: Titration: 10/10/22 22:34 Dose: 1,100 units/hr, 22 mls/hr Documented By: Titration: 10/10/22 19:29 Dose: 1,100 units/hr, 22 mls/hr Documented By: Titration: 10/10/22 13:17 Dose: 1,050 units/hr, 21 mls/hr Documented By: Titration: 10/10/22 05:45 Dose: 1,000 units/hr, 20 mls/hr Documented By: Admin: 10/09/22 22:04 Dose: 950 units/hr, 19 mls/hr Documented By: Titration: 10/09/22 21:20 Dose: 950 units/hr, 19 mls/hr Documented By: Titration: 10/09/22 01:37 Dose: 950 units/hr, 19 mls/hr Documented By: RLS(2) Admin: 10/08/22 19:20 Dose: 1,000 units/hr, 20 mls/hr Documented By: KLS Ceftriaxone Sodium 1,000 mg/ (Sodium Chloride) 100 mls @ 200 mls/hr IV NOW ONE Stop: 10/08/22 21:33 Last Infusion: 10/08/22 22:46 Dose: 0 mls/hr Documented By: RLS(2) Admin: 10/08/22 22:09 Dose: 200 mls/hr Documented By: RLS(2) Amiodarone HCl/Dextrose (Nexterone) 180 mg in 100 mls @ 16.7 mls/hr IV CONT SHARON; Protocol Stop: 10/09/22 12:15 Last Infusion: 10/09/22 15:41 Dose: 0 mls/hr Documented By: Admin: 10/09/22 06:11 Dose: 16.7 mls/hr Documented By: RLS(2) Ceftriaxone Sodium 1,000 mg/ (Sodium Chloride) 100 mls @ 200 mls/hr IV Q24H [facility] Last Admin: 10/09/22 07:34 Dose: Not Given Documented By: MLM Ceftriaxone Sodium 1,000 mg/ (Sodium Chloride) 100 mls @ 200 mls/hr IV 2100 SH[facility]ON Last Infusion: 10/09/22 21:59 Dose: 0 mls/hr Documented By: Admin: 10/09/22 21:09 Dose: 200 mls/hr Documented By: YADIRA Amiodarone HCl/Dextrose (Nexterone) 180 mg in 100 mls @ 16.7 mls/hr IV CONT SHARON; Protocol Stop: 10/09/22 20:15 Last Admin: 10/09/22 16:26 Dose: Not Given Documented By: JOSIAH Amiodarone HCl/Dextrose (Nexterone) 360 mg in 200 mls @ 16.7 mls/hr IV CONT SHARON; Protocol Last Infusion: 10/12/22 11:20 Dose: 16.7 mls/hr Documented By: Admin: 10/12/22 03:56 Dose: 16.7 mls/hr Documented By: Infusion: 10/12/22 03:56 Dose: 16.7 mls/hr Documented By: Infusion: 10/12/22 03:54 Dose: 16.7 mls/hr Documented By: Admin: 10/11/22 16:31 Dose: 16.7 mls/hr Documented By: Infusion: 10/11/22 16:31 Dose: 16.7 mls/hr Documented By: Admin: 10/11/22 04:53 Dose: 16.7 mls/hr Documented By: Infusion: 10/11/22 04:53 Dose: 16.7 mls/hr Documented By: Infusion: 10/11/22 04:52 Dose: 16.7 mls/hr Documented By: Admin: 10/10/22 18:32 Dose: 16.7 mls/hr Documented By: Infusion: 10/10/22 18:32 Dose: 16.7 mls/hr Documented By: Admin: 10/10/22 07:21 Dose: 16.7 mls/hr Documented By: Infusion: 10/10/22 03:50 Dose: 0 mls/hr Documented By: Admin: 10/09/22 15:42 Dose: 16.7 mls/hr Documented By: RLS POTASSIUM CHLORIDE IN WATER (Potassium Cl 10 Meq/100 Ml Sofia) 10 meq in 100 mls @ 100 mls/hr IV Q1H SH[facility]ON Stop: 10/10/22 13:44 Last Infusion: 10/10/22 14:34 Dose: 0 mls/hr Documented By: Admin: 10/10/22 13:23 Dose: 100 mls/hr Documented By: Infusion: 10/10/22 13:16 Dose: 0 mls/hr Documented By: Admin: 10/10/22 12:09 Dose: 100 mls/hr Documented By: JOSIAH Magnesium Sulfate (Magnesium Sulfate) 2 gm in 50 mls @ 25 mls/hr IV NOW ONE Stop: 10/10/22 15:34 Last Infusion: 10/10/22 15:49 Dose: 0 mls/hr Documented By: JOSIAH Co-signed By: FLYaritza Admin: 10/10/22 13:52 Dose: 25 mls/hr Documented By: JOSIAH Co-signed By: KUNAL Calcium Gluconate 4.65 meq/ (Sodium Chloride) 60 mls @ 180 mls/hr IV NOW ONE Stop: 10/11/22 08:45 Last Infusion: 10/11/22 09:30 Dose: 0 mls/hr Documented By: Admin: 10/11/22 09:08 Dose: 180 mls/hr Documented By: JOSIAH Magnesium Sulfate (Magnesium Sulfate) 2 gm in 50 mls @ 150 mls/hr IV NOW ONE Stop: 10/11/22 08:45 Last Infusion: 10/11/22 10:35 Dose: 0 mls/hr Documented By: JOSIAH Co-signed By: KAMRAN Admin: 10/11/22 08:43 Dose: 150 mls/hr Documented By: DIANA Co-signed By: VIRGINIE POTASSIUM CHLORIDE IN WATER (Potassium Cl 10 Meq/100 Ml Sofia) 10 meq in 100 mls @ 100 mls/hr IV Q1H SH[facility]ON Stop: 10/11/22 12:29 Last Infusion: 10/11/22 16:03 Dose: 0 mls/hr Documented By: Admin: 10/11/22 13:03 Dose: 100 mls/hr Documented By: Infusion: 10/11/22 12:55 Dose: 100 mls/hr Documented By: Admin: 10/11/22 11:55 Dose: 100 mls/hr Documented By: Infusion: 10/11/22 11:55 Dose: 0 mls/hr Documented By: Admin: 10/11/22 10:58 Dose: 100 mls/hr Documented By: Infusion: 10/11/22 10:42 Dose: 100 mls/hr Documented By: Admin: 10/11/22 09:42 Dose: 100 mls/hr Documented By: JOSIAH Levothyroxine Sodium (Levothyroxine 125 Mcg Tablet) 125 mcg PO DAILY@0600 [facility] Last Admin: 10/12/22 07:00 Dose: 125 mcg Documented By: Admin: 10/11/22 08:00 Dose: 125 mcg Documented By: Admin: 10/10/22 06:39 Dose: 125 mcg Documented By: Admin: 10/09/22 12:43 Dose: Not Given Documented By: GUERLINE Lidocaine (Lidocaine Patch 1 Each Adh..Patch) 1 each TOP DAILY [facility] Last Admin: 10/12/22 09:25 Dose: 1 each Documented By: Admin: 10/12/22 07:09 Dose: 1 each Documented By: Admin: 10/11/22 10:58 Dose: 1 each Documented By: Admin: 10/10/22 10:02 Dose: 1 each Documented By: Admin: 10/09/22 15:15 Dose: 1 each Documented By: JOSIAH Loratadine (Loratadine 10 Mg Tablet) 10 mg PO NOW ONE Stop: 10/09/22 16:11 Last Admin: 10/09/22 16:34 Dose: 10 mg Documented By: JOSIAH Loratadine (Loratadine 10 Mg Tablet) 10 mg PO DAILY [facility] Last Admin: 10/12/22 09:29 Dose: 10 mg Documented By: Admin: 10/11/22 11:05 Dose: 10 mg Documented By: Admin: 10/10/22 13:49 Dose: 10 mg Documented By: JOSIAH Lorazepam (Lorazepam 2 Mg/Ml Inj) 0.5 mg IV Q6HR PRN PRN Reason: Nausea Stop: 10/10/22 00:00 Methotrexate (Methotrexate 2.5 Mg Tablet) 10 mg PO Fr@0900 [facility] Morphine Sulfate (Morphine 4 Mg/Ml Inj) 4 mg IV NOW ONE Stop: 10/12/22 10:13 Last Admin: 10/12/22 11:02 Dose: 4 mg Documented By: GUERLINE Ondansetron HCl (Ondansetron 4 Mg/2 Ml Inj) 4 mg IV NOW PRN PRN Reason: Nausea And Vomiting Last Admin: 10/08/22 11:09 Dose: 4 mg Documented By: GUERLINE Ondansetron HCl (Ondansetron 4 Mg/2 Ml Inj) 4 mg IV Q6H PRN PRN Reason: Nausea And Vomiting Last Admin: 10/11/22 01:46 Dose: 4 mg Documented By: Admin: 10/10/22 07:33 Dose: 4 mg Documented By: JOSIAH Pantoprazole Sodium (Pantoprazole 40 Mg Vial) 40 mg IV NOW ONE Stop: 10/11/22 08:25 Last Admin: 10/11/22 08:46 Dose: 40 mg Documented By: DIANA Potassium Chloride (Potassium Chloride 20 Meq Tab) 20 meq PO NOW ONE Stop: 10/10/22 11:43 Last Admin: 10/10/22 12:09 Dose: 20 meq Documented By: JOSIAH Pramipexole Dihydrochloride (Pramipexole 0.25 Mg Tablet) 0.5 mg PO BEDTIME [facility] Last Admin: 10/11/22 21:38 Dose: 0.5 mg Documented By: Admin: 10/10/22 21:22 Dose: 0.5 mg Documented By: Admin: 10/09/22 21:09 Dose: 0.5 mg Documented By: Admin: 10/08/22 22:59 Dose: 0.5 mg Documented By: JOSIAH(2) Tramadol HCl (Tramadol 50 Mg Prepack) 1 bottle MISC SEEINSTR ONE Stop: 10/08/22 18:24 Last Admin: 10/08/22 19:05 Dose: Not Given Documented By: GUERLINE Vital Signs Vital signs: Vital Signs - 8 hr 10/11/22 22:30 10/11/22 23:00 10/11/22 23:00 Temperature 99.0 F 98.8 F Pulse Rate 65 63 Respiratory Rate 21 15 Blood Pressure 128/73 Pulse Oximetry 94 92 10/11/22 23:30 10/12/22 00:00 10/12/22 00:00 Temperature 98.6 F 98.6 F Pulse Rate 59 L 57 L Respiratory Rate 28 H 15 Blood Pressure 118/64 Pulse Oximetry 86 L 97 10/12/22 00:30 10/12/22 01:00 10/12/22 01:00 Temperature 98.4 F 98.2 F Pulse Rate 55 L 56 L Respiratory Rate 13 35 H Blood Pressure 96/53 L Pulse Oximetry 99 97 10/12/22 01:30 10/12/22 02:00 10/12/22 02:00 Temperature 98.2 F 98.2 F Pulse Rate 57 L 57 L Respiratory Rate 24 14 Blood Pressure 105/62 Pulse Oximetry 97 98 10/12/22 02:30 Temperature 98.2 F Pulse Rate 58 L Respiratory Rate 14 Blood Pressure Pulse Oximetry 97 <Willie Miller, - Last Filed: 10/11/22 12:01> Orders Ordered: Discontinued Medications Acetaminophen (Acetaminophen 325 Mg Tablet) 650 mg PO Q4H PRN PRN Reason: Fever/Mild Pain (1-3) Last Admin: 10/10/22 22:06 Dose: 650 mg Documented By: Admin: 10/09/22 21:09 Dose: 650 mg Documented By: Admin: 10/09/22 10:39 Dose: 650 mg Documented By: GUERLINE Hydrocodone Bitart/Acetaminophen (Hydrocodone/Acet 5/325 Tablet) 1 tab PO NOW ONE Stop: 10/10/22 00:13 Last Admin: 10/10/22 00:16 Dose: 1 tab Documented By: YADIRA Aspirin (Aspirin 81 Mg Chew Tab) 324 mg PO NOW ONE Stop: 10/08/22 18:39 Last Admin: 10/08/22 19:17 Dose: 324 mg Documented By: GUERLINE Aspirin (Aspirin 81 Mg Chew Tab) 324 mg PO DAILY [facility] Last Admin: 10/12/22 09:25 Dose: 324 mg Documented By: Admin: 10/11/22 10:58 Dose: 324 mg Documented By: Admin: 10/10/22 10:01 Dose: 324 mg Documented By: Admin: 10/09/22 15:57 Dose: 324 mg Documented By: JOSIAH Atorvastatin Calcium (Atorvastatin 20 Mg Tablet) 80 mg PO NOW ONE Stop: 10/08/22 18:39 Last Admin: 10/08/22 19:24 Dose: 80 mg Documented By: GUERLINE Atorvastatin Calcium (Atorvastatin 20 Mg Tablet) 80 mg PO BEDTIME [facility] Last Admin: 10/11/22 21:17 Dose: 80 mg Documented By: Admin: 10/10/22 20:51 Dose: 80 mg Documented By: Admin: 10/09/22 21:10 Dose: 80 mg Documented By: YADIRA Diphenhydramine HCl (Diphenhydramine 50 Mg/Ml Vial) 25 mg IV NOW ONE Stop: 10/11/22 23:08 Last Admin: 10/11/22 23:23 Dose: 25 mg Documented By: SALAZAR Fentanyl (Fentanyl 100 Mcg/2 Ml Inj) 50 mcg IV NOW ONE Stop: 10/08/22 13:24 Last Admin: 10/08/22 13:25 Dose: 50 mcg Documented By: GUERLINE Fentanyl (Fentanyl 100 Mcg/2 Ml Inj) 50 mcg IV Q1H PRN PRN Reason: Pain, Severe (7-10) Stop: 10/10/22 00:00 Last Admin: 10/09/22 10:38 Dose: 50 mcg Documented By: Admin: 10/09/22 05:33 Dose: 50 mcg Documented By: JOSIAH(2) Admin: 10/09/22 02:25 Dose: 50 mcg Documented By: JOSIAH(2) Admin: 10/08/22 22:10 Dose: 50 mcg Documented By: JOSIAH(2) Admin: 10/08/22 18:33 Dose: 50 mcg Documented By: Admin: 10/08/22 15:38 Dose: 50 mcg Documented By: GUERLINE Fentanyl (Fentanyl 100 Mcg/2 Ml Inj) 50 mcg IV NOW ONE Stop: 10/11/22 23:08 Last Admin: 10/11/22 23:22 Dose: 50 mcg Documented By: SALAZAR Fentanyl (Fentanyl 100 Mcg/2 Ml Inj) 50 mcg IV Q1H PRN PRN Reason: Pain, Severe (7-10) Last Admin: 10/12/22 04:00 Dose: 50 mcg Documented By: SALAZAR Fluticasone Propionate (Fluticasone 120 Minter/16 Gm Minter.Susp) 1 spray NASAL NOW ONE Stop: 10/09/22 16:13 Last Admin: 10/09/22 16:33 Dose: 1 spray Documented By: JOSIAH Fluticasone Propionate (Fluticasone 120 Minter/16 Gm Minter.Susp) 1 spray NASAL DAILY [facility] Last Admin: 10/12/22 10:01 Dose: 1 spray Documented By: Admin: 10/11/22 11:04 Dose: 1 spray Documented By: Admin: 10/10/22 13:50 Dose: 1 spray Documented By: JOSIAH Furosemide (Furosemide 40 Mg/4 Ml Vial) 40 mg IV NOW ONE Stop: 10/08/22 18:39 Last Admin: 10/08/22 19:18 Dose: 40 mg Documented By: GUERLINE Heparin Sodium (Porcine) (Heparin 5,000 Unit/Ml Vial) 5,000 unit IV NOW ONE Stop: 10/08/22 18:39 Last Admin: 10/08/22 19:18 Dose: 5,000 unit Documented By: GUERLINE Heparin Sodium (Porcine) (Heparin Flush (Cl/Picc/Mid-Line) 50 Unit/5 Ml Syringe) 50 unit IV PRN PRN PRN Reason: Flush Hydromorphone HCl (Hydromorphone 0.5 Mg Inj) 0.5 mg IV Q15MIN PRN PRN Reason: Pain, Last Admin: 10/11/22 01:41 Dose: 0.5 mg Documented By: SALAZAR Sodium Chloride (Normal Saline 0.9%) 1,000 mls @ 1,000 mls/hr IV BOLUS ONE Stop: 10/08/22 11:27 Last Infusion: 10/08/22 11:13 Dose: 0 mls/hr Documented By: Admin: 10/08/22 10:25 Dose: 1,000 mls/hr Documented By: GUERLINE Amiodarone HCl/Dextrose (Nexterone) 360 mg in 200 mls @ 33.333 mls/hr IV NOW ONE; Protocol Stop: 10/08/22 16:29 Last Titration: 10/08/22 16:18 Dose: 0 mls/hr, 0 mls/hr Documented By: Titration: 10/08/22 13:16 Dose: 33.33 mls/hr, 33.33 mls/hr Documented By: Admin: 10/08/22 10:50 Dose: 33.33 mls/hr, 33.33 mls/hr Documented By: GUERLINE Calcium Gluconate 9.3 meq/ (Sodium Chloride) 70 mls @ 140 mls/hr IV NOW ONE Stop: 10/08/22 11:11 Last Infusion: 10/08/22 12:00 Dose: 0 mls/hr Documented By: Admin: 10/08/22 11:15 Dose: 140 mls/hr Documented By: GUERLINE Sodium Chloride (Normal Saline 0.9%) 1,000 mls @ 1,000 mls/hr IV BOLUS ONE Stop: 10/08/22 12:00 Last Infusion: 10/08/22 11:23 Dose: 0 mls/hr Documented By: Admin: 10/08/22 10:50 Dose: 1,000 mls/hr Documented By: GUERLINE Sodium Chloride (Normal Saline 0.9%) 1,000 mls @ 1,000 mls/hr IV BOLUS ONE Stop: 10/08/22 12:03 Last Infusion: 10/08/22 12:10 Dose: 0 mls/hr Documented By: Admin: 10/08/22 11:10 Dose: 1,000 mls/hr Documented By: GUERLINE Phenylephrine HCl 20,000 mcg/ (Dextrose) 250 mls @ 75 mls/hr IV TITRATE SHARON; Protocol Last Titration: 10/09/22 09:00 Dose: 0 mcg/min, 0 mls/hr Documented By: Titration: 10/09/22 05:19 Dose: 0 mcg/min, 0 mls/hr Documented By: RLS(2) Titration: 10/09/22 04:00 Dose: 40 mcg/min, 30 mls/hr Documented By: RLS(2) Admin: 10/09/22 01:32 Dose: 50 mcg/min, 37.5 mls/hr Documented By: Titration: 10/09/22 01:32 Dose: 75 mcg/min, 56.25 mls/hr Documented By: Titration: 10/08/22 21:27 Dose: 75 mcg/min, 56.25 mls/hr Documented By: Admin: 10/08/22 21:18 Dose: 100 mcg/min, 75 mls/hr Documented By: Titration: 10/08/22 21:18 Dose: 100 mcg/min, 75 mls/hr Documented By: Admin: 10/08/22 18:16 Dose: 100 mcg/min, 75 mls/hr Documented By: Titration: 10/08/22 18:15 Dose: 0 mcg/min, 0 mls/hr Documented By: Titration: 10/08/22 17:20 Dose: 0 mcg/min, 0 mls/hr Documented By: Admin: 10/08/22 13:54 Dose: 100 mcg/min, 75 mls/hr Documented By: MARICRUZS POTASSIUM CHLORIDE IN WATER (Potassium Cl 10 Meq/100 Ml Sofia) 10 meq in 100 mls @ 100 mls/hr IV Q1H SHARON Stop: 10/08/22 15:14 Last Infusion: 10/08/22 17:39 Dose: 0 mls/hr Documented By: Admin: 10/08/22 16:34 Dose: 100 mls/hr Documented By: Infusion: 10/08/22 16:33 Dose: 0 mls/hr Documented By: Admin: 10/08/22 15:06 Dose: 100 mls/hr Documented By: Infusion: 10/08/22 15:01 Dose: 0 mls/hr Documented By: Admin: 10/08/22 13:52 Dose: 100 mls/hr Documented By: Infusion: 10/08/22 13:15 Dose: 0 mls/hr Documented By: Admin: 10/08/22 12:03 Dose: 100 mls/hr Documented By: GUERLINE Sodium Chloride (Normal Saline 0.9%) 1,000 mls @ 1,000 mls/hr IV BOLUS ONE Stop: 10/08/22 12:07 Last Infusion: 10/09/22 03:12 Dose: 0 mls/hr Documented By: JOSIAH(2) Infusion: 10/08/22 13:16 Dose: 150 mls/hr Documented By: Admin: 10/08/22 11:24 Dose: 150 mls/hr Documented By: GUERLINE Amiodarone HCl/Dextrose (Nexterone) 360 mg in 200 mls @ 16.7 mls/hr IV CONT SHARON; Protocol Stop: 10/09/22 01:44 Last Titration: 10/09/22 04:17 Dose: 0 mls/hr, 0 mls/hr Documented By: JOSIAH(2) Admin: 10/08/22 16:18 Dose: 16.7 mls/hr, 16.7 mls/hr Documented By: GUERLINE Magnesium Sulfate (Magnesium Sulfate) 2 gm in 50 mls @ 25 mls/hr IV NOW ONE Stop: 10/08/22 16:08 Last Infusion: 10/08/22 18:20 Dose: 0 mls/hr Documented By: GUERLINE Co-signed By: AT Admin: 10/08/22 15:54 Dose: 25 mls/hr Documented By: GUERLINE Co-signed By: TABATHA POTASSIUM CHLORIDE IN WATER (Potassium Cl 10 Meq/100 Ml Sofia) 10 meq in 100 mls @ 100 mls/hr IV Q1H SHARON Stop: 10/08/22 18:14 Last Infusion: 10/08/22 22:16 Dose: 0 mls/hr Documented By: RLS(2) Admin: 10/08/22 21:05 Dose: 100 mls/hr Documented By: Infusion: 10/08/22 21:05 Dose: 0 mls/hr Documented By: Admin: 10/08/22 20:02 Dose: 100 mls/hr Documented By: Infusion: 10/08/22 19:42 Dose: 100 mls/hr Documented By: Admin: 10/08/22 18:42 Dose: 100 mls/hr Documented By: Infusion: 10/08/22 18:41 Dose: 0 mls/hr Documented By: Admin: 10/08/22 17:39 Dose: 100 mls/hr Documented By: GUERLINE Piperacillin Sod/Tazobactam (Sod 4.5 gm/ Sodium Chloride) 100 mls @ 200 mls/hr IV NOW ONE Stop: 10/08/22 14:54 Last Infusion: 10/08/22 15:53 Dose: 0 mls/hr Documented By: Admin: 10/08/22 15:14 Dose: 200 mls/hr Documented By: GUERLINE Lactated Ringer's (Lactated Ringers) 1,000 mls @ 1,000 mls/hr IV BOLUS ONE Stop: 10/08/22 16:12 Last Infusion: 10/08/22 17:21 Dose: 0 mls/hr Documented By: Admin: 10/08/22 15:50 Dose: 1,000 mls/hr Documented By: GUERLINE Heparin Sodium/Dextrose (Heparin Drip) 25,000 unit in 500 mls @ 20 mls/hr IV CONT SHARON; Protocol Last Titration: 10/12/22 11:20 Dose: 1,100 units/hr, 22 mls/hr Documented By: Admin: 10/11/22 21:41 Dose: 1,100 units/hr, 22 mls/hr Documented By: Titration: 10/11/22 21:38 Dose: 1,100 units/hr, 22 mls/hr Documented By: Admin: 10/10/22 22:34 Dose: 1,100 units/hr, 22 mls/hr Documented By: Titration: 10/10/22 22:34 Dose: 1,100 units/hr, 22 mls/hr Documented By: Titration: 10/10/22 19:29 Dose: 1,100 units/hr, 22 mls/hr Documented By: Titration: 10/10/22 13:17 Dose: 1,050 units/hr, 21 mls/hr Documented By: Titration: 10/10/22 05:45 Dose: 1,000 units/hr, 20 mls/hr Documented By: Admin: 10/09/22 22:04 Dose: 950 units/hr, 19 mls/hr Documented By: Titration: 10/09/22 21:20 Dose: 950 units/hr, 19 mls/hr Documented By: Titration: 10/09/22 01:37 Dose: 950 units/hr, 19 mls/hr Documented By: RLS(2) Admin: 10/08/22 19:20 Dose: 1,000 units/hr, 20 mls/hr Documented By: KLS Ceftriaxone Sodium 1,000 mg/ (Sodium Chloride) 100 mls @ 200 mls/hr IV NOW ONE Stop: 10/08/22 21:33 Last Infusion: 10/08/22 22:46 Dose: 0 mls/hr Documented By: RLS(2) Admin: 10/08/22 22:09 Dose: 200 mls/hr Documented By: RLS(2) Amiodarone HCl/Dextrose (Nexterone) 180 mg in 100 mls @ 16.7 mls/hr IV CONT SHARON; Protocol Stop: 10/09/22 12:15 Last Infusion: 10/09/22 15:41 Dose: 0 mls/hr Documented By: Admin: 10/09/22 06:11 Dose: 16.7 mls/hr Documented By: RLS(2) Ceftriaxone Sodium 1,000 mg/ (Sodium Chloride) 100 mls @ 200 mls/hr IV Q24H SHARON Last Admin: 10/09/22 07:34 Dose: Not Given Documented By: MLM Ceftriaxone Sodium 1,000 mg/ (Sodium Chloride) 100 mls @ 200 mls/hr IV 2100 SHARON Last Infusion: 10/09/22 21:59 Dose: 0 mls/hr Documented By: DKJessica Admin: 10/09/22 21:09 Dose: 200 mls/hr Documented By: YADIRA Amiodarone HCl/Dextrose (Nexterone) 180 mg in 100 mls @ 16.7 mls/hr IV CONT SHARON; Protocol Stop: 10/09/22 20:15 Last Admin: 10/09/22 16:26 Dose: Not Given Documented By: JOSIAH Amiodarone HCl/Dextrose (Nexterone) 360 mg in 200 mls @ 16.7 mls/hr IV CONT SHARON; Protocol Last Infusion: 10/12/22 11:20 Dose: 16.7 mls/hr Documented By: Admin: 10/12/22 03:56 Dose: 16.7 mls/hr Documented By: Infusion: 10/12/22 03:56 Dose: 16.7 mls/hr Documented By: Infusion: 10/12/22 03:54 Dose: 16.7 mls/hr Documented By: Admin: 10/11/22 16:31 Dose: 16.7 mls/hr Documented By: Infusion: 10/11/22 16:31 Dose: 16.7 mls/hr Documented By: Admin: 10/11/22 04:53 Dose: 16.7 mls/hr Documented By: Infusion: 10/11/22 04:53 Dose: 16.7 mls/hr Documented By: Infusion: 10/11/22 04:52 Dose: 16.7 mls/hr Documented By: Admin: 10/10/22 18:32 Dose: 16.7 mls/hr Documented By: Infusion: 10/10/22 18:32 Dose: 16.7 mls/hr Documented By: Admin: 10/10/22 07:21 Dose: 16.7 mls/hr Documented By: Infusion: 10/10/22 03:50 Dose: 0 mls/hr Documented By: Admin: 10/09/22 15:42 Dose: 16.7 mls/hr Documented By: RLS POTASSIUM CHLORIDE IN WATER (Potassium Cl 10 Meq/100 Ml Sofia) 10 meq in 100 mls @ 100 mls/hr IV Q1H SHARON Stop: 10/10/22 13:44 Last Infusion: 10/10/22 14:34 Dose: 0 mls/hr Documented By: Admin: 10/10/22 13:23 Dose: 100 mls/hr Documented By: Infusion: 10/10/22 13:16 Dose: 0 mls/hr Documented By: Admin: 10/10/22 12:09 Dose: 100 mls/hr Documented By: JOSIAH Magnesium Sulfate (Magnesium Sulfate) 2 gm in 50 mls @ 25 mls/hr IV NOW ONE Stop: 10/10/22 15:34 Last Infusion: 10/10/22 15:49 Dose: 0 mls/hr Documented By: JOSIAH Co-signed By: [facility] Admin: 10/10/22 13:52 Dose: 25 mls/hr Documented By: JOSIAH Co-signed By: KUNAL Calcium Gluconate 4.65 meq/ (Sodium Chloride) 60 mls @ 180 mls/hr IV NOW ONE Stop: 10/11/22 08:45 Last Infusion: 10/11/22 09:30 Dose: 0 mls/hr Documented By: Admin: 10/11/22 09:08 Dose: 180 mls/hr Documented By: JOSIAH Magnesium Sulfate (Magnesium Sulfate) 2 gm in 50 mls @ 150 mls/hr IV NOW ONE Stop: 10/11/22 08:45 Last Infusion: 10/11/22 10:35 Dose: 0 mls/hr Documented By: JOSIAH Co-signed By: KAMRAN Admin: 10/11/22 08:43 Dose: 150 mls/hr Documented By: DIANA Co-signed By: VIRGINIE POTASSIUM CHLORIDE IN WATER (Potassium Cl 10 Meq/100 Ml Sofia) 10 meq in 100 mls @ 100 mls/hr IV Q1H SHARON Stop: 10/11/22 12:29 Last Infusion: 10/11/22 16:03 Dose: 0 mls/hr Documented By: Admin: 10/11/22 13:03 Dose: 100 mls/hr Documented By: Infusion: 10/11/22 12:55 Dose: 100 mls/hr Documented By: Admin: 10/11/22 11:55 Dose: 100 mls/hr Documented By: Infusion: 10/11/22 11:55 Dose: 0 mls/hr Documented By: Admin: 10/11/22 10:58 Dose: 100 mls/hr Documented By: Infusion: 10/11/22 10:42 Dose: 100 mls/hr Documented By: Admin: 10/11/22 09:42 Dose: 100 mls/hr Documented By: JOSIAH Levothyroxine Sodium (Levothyroxine 125 Mcg Tablet) 125 mcg PO DAILY@0600 [facility] Last Admin: 10/12/22 07:00 Dose: 125 mcg Documented By: Admin: 10/11/22 08:00 Dose: 125 mcg Documented By: Admin: 10/10/22 06:39 Dose: 125 mcg Documented By: Admin: 10/09/22 12:43 Dose: Not Given Documented By: GUERLINE Lidocaine (Lidocaine Patch 1 Each Adh..Patch) 1 each TOP DAILY [facility] Last Admin: 10/12/22 09:25 Dose: 1 each Documented By: Admin: 10/12/22 07:09 Dose: 1 each Documented By: Admin: 10/11/22 10:58 Dose: 1 each Documented By: Admin: 10/10/22 10:02 Dose: 1 each Documented By: Admin: 10/09/22 15:15 Dose: 1 each Documented By: JOSIAH Loratadine (Loratadine 10 Mg Tablet) 10 mg PO NOW ONE Stop: 10/09/22 16:11 Last Admin: 10/09/22 16:34 Dose: 10 mg Documented By: JOSIAH Loratadine (Loratadine 10 Mg Tablet) 10 mg PO DAILY [facility] Last Admin: 10/12/22 09:29 Dose: 10 mg Documented By: Admin: 10/11/22 11:05 Dose: 10 mg Documented By: Admin: 10/10/22 13:49 Dose: 10 mg Documented By: JOSIAH Lorazepam (Lorazepam 2 Mg/Ml Inj) 0.5 mg IV Q6HR PRN PRN Reason: Nausea Stop: 10/10/22 00:00 Methotrexate (Methotrexate 2.5 Mg Tablet) 10 mg PO Fr@0900 [facility] Morphine Sulfate (Morphine 4 Mg/Ml Inj) 4 mg IV NOW ONE Stop: 10/12/22 10:13 Last Admin: 10/12/22 11:02 Dose: 4 mg Documented By: GUERLINE Ondansetron HCl (Ondansetron 4 Mg/2 Ml Inj) 4 mg IV NOW PRN PRN Reason: Nausea And Vomiting Last Admin: 10/08/22 11:09 Dose: 4 mg Documented By: GUERLINE Ondansetron HCl (Ondansetron 4 Mg/2 Ml Inj) 4 mg IV Q6H PRN PRN Reason: Nausea And Vomiting Last Admin: 10/11/22 01:46 Dose: 4 mg Documented By: Admin: 10/10/22 07:33 Dose: 4 mg Documented By: JOSIAH Pantoprazole Sodium (Pantoprazole 40 Mg Vial) 40 mg IV NOW ONE Stop: 10/11/22 08:25 Last Admin: 10/11/22 08:46 Dose: 40 mg Documented By: DIANA Potassium Chloride (Potassium Chloride 20 Meq Tab) 20 meq PO NOW ONE Stop: 10/10/22 11:43 Last Admin: 10/10/22 12:09 Dose: 20 meq Documented By: JOSIAH Pramipexole Dihydrochloride (Pramipexole 0.25 Mg Tablet) 0.5 mg PO BEDTIME SHARON Last Admin: 10/11/22 21:38 Dose: 0.5 mg Documented By: Admin: 10/10/22 21:22 Dose: 0.5 mg Documented By: Admin: 10/09/22 21:09 Dose: 0.5 mg Documented By: Admin: 10/08/22 22:59 Dose: 0.5 mg Documented By: JOSIAH(2) Tramadol HCl (Tramadol 50 Mg Prepack) 1 bottle MISC SEEINSTR ONE Stop: 10/08/22 18:24 Last Admin: 10/08/22 19:05 Dose: Not Given Documented By: GUERLINE Vital Signs Vital signs: Vital Signs - 8 hr 10/11/22 22:30 10/11/22 23:00 10/11/22 23:00 Temperature 99.0 F 98.8 F Pulse Rate 65 63 Respiratory Rate 21 15 Blood Pressure 128/73 Pulse Oximetry 94 92 10/11/22 23:30 10/12/22 00:00 10/12/22 00:00 Temperature 98.6 F 98.6 F Pulse Rate 59 L 57 L Respiratory Rate 28 H 15 Blood Pressure 118/64 Pulse Oximetry 86 L 97 10/12/22 00:30 10/12/22 01:00 10/12/22 01:00 Temperature 98.4 F 98.2 F Pulse Rate 55 L 56 L Respiratory Rate 13 35 H Blood Pressure 96/53 L Pulse Oximetry 99 97 10/12/22 01:30 10/12/22 02:00 10/12/22 02:00 Temperature 98.2 F 98.2 F Pulse Rate 57 L 57 L Respiratory Rate 24 14 Blood Pressure 105/62 Pulse Oximetry 97 98 10/12/22 02:30 Temperature 98.2 F Pulse Rate 58 L Respiratory Rate 14 Blood Pressure Pulse Oximetry 97 MDM - Cardiac Arrest/CPR <Isamarrosa maria Price - Last Filed: 10/09/22 12:57> Lab Data Result diagrams: 10/11/22 17:44 10/11/22 17:44 Labs: Lab Results 10/08/22 10/08/22 10/08/22 Range/Units 10:03 10:11 10:11 WBC 4.6 (4.5-11.0) X10^3/uL RBC 4.21 (4.0-5.2) X10^6/uL Hgb 11.7 L (12.0-16.0) g/dL Hct 35.9 L (36-46) % MCV 85.3 (80-100) fL MCH 27.7 (26-34) PG MCHC 32.5 (30-36) % RDW 19.3 H (11.6-14.8) % Plt Count 182 (150-400) X10^3/uL Neut % (Auto) 69.7 (50-75) % Lymph % (Auto) 22.1 L (25-40) % [place] % (Auto) 7.9 (3-14) % Eos % (Auto) 0.1 L (2-4) % Baso % (Auto) 0.2 (0-2) % Neut # (Auto) 3200 (9177-3245) /uL Lymph # (Auto) 1000 L (9754-2047) /uL [place] # (Auto) 400 (0-900) /uL Eos # (Auto) 0 (0-450) /uL Baso # (Auto) 0 (0-100) /uL PT (10.1-12.7) SECONDS INR (0.9-1.3) APTT (26-36) SECONDS ABG pH (7.35-7.45) ABG pCO2 (35-45) mmHg ABG pO2 (80-100) mmHg ABG HCO3 (22-26) mmol/L ABG Total CO2 (21-31) mmol/L ABG O2 Saturation (95-100) % ABG Base Excess (-2-2) mmol/L FiO2 Sodium 143 (137-145) mmol/L Potassium 3.3 L (3.4-5.1) mmol/L Chloride 104 (98-107) mmol/L Carbon Dioxide 34 H (22-32) mmol/L BUN 12 (7-17) mg/dL Creatinine 0.60 (0.52-1.04) mg/dL Estimated GFR > 60 (>60) mL/min BUN/Creatinine Ratio 20.0 (6-22) Glucose 95 (70-100) mg/dL Lactate (0.7-2.1) mmol/L Calcium 7.9 L (8.4-10.2) mg/dL Magnesium (1.6-2.3) mg/dL Total Bilirubin 0.3 (0.2-1.3) mg/dL AST 18 (14-36) IU/L ALT 15 (<35) IU/L Alkaline Phosphatase 104 (38-126) U/L Total Creatine Kinase (30-135) U/L CK-MB (CK-2) CK-MB (CK-2) Rel Index Troponin I (0.01-0.034) ng/mL NT-Pro-B Natriuret Pep (<125) pg/mL Total Protein 6.4 (6.3-8.2) g/dL Albumin 3.5 (3.5-5.0) g/dL Globulin 2.9 (1.7-4.1) g/dL Albumin/Globulin Ratio 1.2 (1.0-2.8) Lipase 45 (23-300) U/L Procalcitonin < 0.03 (<0.5) ng/mL Urine Color Urine Appearance Urine pH (4.5-8.0) Ur Specific [place] (1.000-1.035) Urine Protein (Negative) Urine Glucose (UA) (Negative) g/dL Urine Ketones (NEGATIVE) Urine Occult Blood (Negative) Urine Nitrate (Negative) Urine Bilirubin (NEGATIVE) Urine Urobilinogen (0.2) E.U./dL Ur Leukocyte Esterase (NEGATIVE) Urine RBC (0-5/HPF) Urine WBC (0-5/HPF) Amorphous Sediment Urine Bacteria (None) Ur Culture Indicated? U Opiates 300ng/mL cut (Negative) Ur Oxycodone Screen (Negative) Urine Methadone Screen (Negative) Ur Barbiturates Screen (Negative) U Tricyclic Antidepress (Negative) Ur Phencyclidine Scrn (Negative) Ur Amphetamines Screen (Negative) U Methamphetamines Scrn (Negative) Ur MDMA Scrn (Ecstasy) (Negative) U Benzodiazepines Scrn (Negative) Urine Cocaine Screen (Negative) U Marijuana (THC) Screen (Negative) Ethyl Alcohol ( - 10) mg/dL SARS-CoV-2 (PCR) Negative (Negative) Influenza A (RT-PCR) Flu a negative (NEGATIVE) Influenza B (RT-PCR) Flu b negative (NEGATIVE) RSV (PCR) Negative (Negative) 10/08/22 10/08/22 10/08/22 Range/Units 10:11 10:11 10:11 WBC (4.5-11.0) X10^3/uL RBC (4.0-5.2) X10^6/uL Hgb (12.0-16.0) g/dL Hct (36-46) % MCV (80-100) fL MCH (26-34) PG MCHC (30-36) % RDW (11.6-14.8) % Plt Count (150-400) X10^3/uL Neut % (Auto) (50-75) % Lymph % (Auto) (25-40) % [place] % (Auto) (3-14) % Eos % (Auto) (2-4) % Baso % (Auto) (0-2) % Neut # (Auto) (9549-6846) /uL Lymph # (Auto) (4545-5596) /uL [place] # (Auto) (0-900) /uL Eos # (Auto) (0-450) /uL Baso # (Auto) (0-100) /uL PT 11.3 (10.1-12.7) SECONDS INR 1.0 (0.9-1.3) APTT 29 (26-36) SECONDS ABG pH (7.35-7.45) ABG pCO2 (35-45) mmHg ABG pO2 (80-100) mmHg ABG HCO3 (22-26) mmol/L ABG Total CO2 (21-31) mmol/L ABG O2 Saturation (95-100) % ABG Base Excess (-2-2) mmol/L FiO2 Sodium (137-145) mmol/L Potassium (3.4-5.1) mmol/L Chloride (98-107) mmol/L Carbon Dioxide (22-32) mmol/L BUN (7-17) mg/dL Creatinine (0.52-1.04) mg/dL Estimated GFR (>60) mL/min BUN/Creatinine Ratio (6-22) Glucose (70-100) mg/dL Lactate 1.0 (0.7-2.1) mmol/L Calcium (8.4-10.2) mg/dL Magnesium (1.6-2.3) mg/dL Total Bilirubin (0.2-1.3) mg/dL AST (14-36) IU/L ALT (<35) IU/L Alkaline Phosphatase (38-126) U/L Total Creatine Kinase 32 (30-135) U/L CK-MB (CK-2) TNP CK-MB (CK-2) Rel Index TNP Troponin I < 0.012 (0.01-0.034) ng/mL NT-Pro-B Natriuret Pep 240 H (<125) pg/mL Total Protein (6.3-8.2) g/dL Albumin (3.5-5.0) g/dL Globulin (1.7-4.1) g/dL Albumin/Globulin Ratio (1.0-2.8) Lipase (23-300) U/L Procalcitonin (<0.5) ng/mL Urine Color Urine Appearance Urine pH (4.5-8.0) Ur Specific [place] (1.000-1.035) Urine Protein (Negative) Urine Glucose (UA) (Negative) g/dL Urine Ketones (NEGATIVE) Urine Occult Blood (Negative) Urine Nitrate (Negative) Urine Bilirubin (NEGATIVE) Urine Urobilinogen (0.2) E.U./dL Ur Leukocyte Esterase (NEGATIVE) Urine RBC (0-5/HPF) Urine WBC (0-5/HPF) Amorphous Sediment Urine Bacteria (None) Ur Culture Indicated? U Opiates 300ng/mL cut (Negative) Ur Oxycodone Screen (Negative) Urine Methadone Screen (Negative) Ur Barbiturates Screen (Negative) U Tricyclic Antidepress (Negative) Ur Phencyclidine Scrn (Negative) Ur Amphetamines Screen (Negative) U Methamphetamines Scrn (Negative) Ur MDMA Scrn (Ecstasy) (Negative) U Benzodiazepines Scrn (Negative) Urine Cocaine Screen (Negative) U Marijuana (THC) Screen (Negative) Ethyl Alcohol ( - 10) mg/dL SARS-CoV-2 (PCR) (Negative) Influenza A (RT-PCR) (NEGATIVE) Influenza B (RT-PCR) (NEGATIVE) RSV (PCR) (Negative) 10/08/22 10/08/22 10/08/22 Range/Units 10:11 10:43 12:50 WBC (4.5-11.0) X10^3/uL RBC (4.0-5.2) X10^6/uL Hgb (12.0-16.0) g/dL Hct (36-46) % MCV (80-100) fL MCH (26-34) PG MCHC (30-36) % RDW (11.6-14.8) % Plt Count (150-400) X10^3/uL Neut % (Auto) (50-75) % Lymph % (Auto) (25-40) % [place] % (Auto) (3-14) % Eos % (Auto) (2-4) % Baso % (Auto) (0-2) % Neut # (Auto) (7084-9151) /uL Lymph # (Auto) (7214-5537) /uL [place] # (Auto) (0-900) /uL Eos # (Auto) (0-450) /uL Baso # (Auto) (0-100) /uL PT (10.1-12.7) SECONDS INR (0.9-1.3) APTT (26-36) SECONDS ABG pH 7.40 (7.35-7.45) ABG pCO2 37.3 (35-45) mmHg ABG pO2 144 H (80-100) mmHg ABG HCO3 23 (22-26) mmol/L ABG Total CO2 24 (21-31) mmol/L ABG O2 Saturation 99 (95-100) % ABG Base Excess -2.0 (-2-2) mmol/L FiO2 80 Sodium (137-145) mmol/L Potassium (3.4-5.1) mmol/L Chloride (98-107) mmol/L Carbon Dioxide (22-32) mmol/L BUN (7-17) mg/dL Creatinine (0.52-1.04) mg/dL Estimated GFR (>60) mL/min BUN/Creatinine Ratio (6-22) Glucose (70-100) mg/dL Lactate 1.4 (0.7-2.1) mmol/L Calcium (8.4-10.2) mg/dL Magnesium 1.8 (1.6-2.3) mg/dL Total Bilirubin (0.2-1.3) mg/dL AST (14-36) IU/L ALT (<35) IU/L Alkaline Phosphatase (38-126) U/L Total Creatine Kinase (30-135) U/L CK-MB (CK-2) CK-MB (CK-2) Rel Index Troponin I (0.01-0.034) ng/mL NT-Pro-B Natriuret Pep (<125) pg/mL Total Protein (6.3-8.2) g/dL Albumin (3.5-5.0) g/dL Globulin (1.7-4.1) g/dL Albumin/Globulin Ratio (1.0-2.8) Lipase (23-300) U/L Procalcitonin (<0.5) ng/mL Urine Color Urine Appearance Urine pH (4.5-8.0) Ur Specific [place] (1.000-1.035) Urine Protein (Negative) Urine Glucose (UA) (Negative) g/dL Urine Ketones (NEGATIVE) Urine Occult Blood (Negative) Urine Nitrate (Negative) Urine Bilirubin (NEGATIVE) Urine Urobilinogen (0.2) E.U./dL Ur Leukocyte Esterase (NEGATIVE) Urine RBC (0-5/HPF) Urine WBC (0-5/HPF) Amorphous Sediment Urine Bacteria (None) Ur Culture Indicated? U Opiates 300ng/mL cut (Negative) Ur Oxycodone Screen (Negative) Urine Methadone Screen (Negative) Ur Barbiturates Screen (Negative) U Tricyclic Antidepress (Negative) Ur Phencyclidine Scrn (Negative) Ur Amphetamines Screen (Negative) U Methamphetamines Scrn (Negative) Ur MDMA Scrn (Ecstasy) (Negative) U Benzodiazepines Scrn (Negative) Urine Cocaine Screen (Negative) U Marijuana (THC) Screen (Negative) Ethyl Alcohol ( - 10) mg/dL SARS-CoV-2 (PCR) (Negative) Influenza A (RT-PCR) (NEGATIVE) Influenza B (RT-PCR) (NEGATIVE) RSV (PCR) (Negative) 10/08/22 10/08/22 10/08/22 Range/Units 12:50 12:50 12:50 WBC (4.5-11.0) X10^3/uL RBC (4.0-5.2) X10^6/uL Hgb (12.0-16.0) g/dL Hct (36-46) % MCV (80-100) fL MCH (26-34) PG MCHC (30-36) % RDW (11.6-14.8) % Plt Count (150-400) X10^3/uL Neut % (Auto) (50-75) % Lymph % (Auto) (25-40) % [place] % (Auto) (3-14) % Eos % (Auto) (2-4) % Baso % (Auto) (0-2) % Neut # (Auto) (8826-9498) /uL Lymph # (Auto) (2655-8394) /uL [place] # (Auto) (0-900) /uL Eos # (Auto) (0-450) /uL Baso # (Auto) (0-100) /uL PT (10.1-12.7) SECONDS INR (0.9-1.3) APTT (26-36) SECONDS ABG pH (7.35-7.45) ABG pCO2 (35-45) mmHg ABG pO2 (80-100) mmHg ABG HCO3 (22-26) mmol/L ABG Total CO2 (21-31) mmol/L ABG O2 Saturation (95-100) % ABG Base Excess (-2-2) mmol/L FiO2 Sodium (137-145) mmol/L Potassium (3.4-5.1) mmol/L Chloride (98-107) mmol/L Carbon Dioxide (22-32) mmol/L BUN (7-17) mg/dL Creatinine (0.52-1.04) mg/dL Estimated GFR (>60) mL/min BUN/Creatinine Ratio (6-22) Glucose (70-100) mg/dL Lactate (0.7-2.1) mmol/L Calcium (8.4-10.2) mg/dL Magnesium (1.6-2.3) mg/dL Total Bilirubin (0.2-1.3) mg/dL AST (14-36) IU/L ALT (<35) IU/L Alkaline Phosphatase (38-126) U/L Total Creatine Kinase (30-135) U/L CK-MB (CK-2) CK-MB (CK-2) Rel Index Troponin I 0.552 H* (0.01-0.034) ng/mL NT-Pro-B Natriuret Pep (<125) pg/mL Total Protein (6.3-8.2) g/dL Albumin (3.5-5.0) g/dL Globulin (1.7-4.1) g/dL Albumin/Globulin Ratio (1.0-2.8) Lipase (23-300) U/L Procalcitonin (<0.5) ng/mL Urine Color Yellow Urine Appearance Sl cloudy Urine pH 8.0 (4.5-8.0) Ur Specific [place] 1.015 (1.000-1.035) Urine Protein 3+ H (Negative) Urine Glucose (UA) 1+ H (Negative) g/dL Urine Ketones Negative (NEGATIVE) Urine Occult Blood 3+ H (Negative) Urine Nitrate Negative (Negative) Urine Bilirubin Negative (NEGATIVE) Urine Urobilinogen 0.2 (0.2) E.U./dL Ur Leukocyte Esterase Trace H (NEGATIVE) Urine RBC >100/hpf H (0-5/HPF) Urine WBC 5-10/hpf H (0-5/HPF) Amorphous Sediment 2+ Urine Bacteria Occasional (0-1) (None) Ur Culture Indicated? Specimen cultured U Opiates 300ng/mL cut (Negative) Ur Oxycodone Screen (Negative) Urine Methadone Screen (Negative) Ur Barbiturates Screen (Negative) U Tricyclic Antidepress (Negative) Ur Phencyclidine Scrn (Negative) Ur Amphetamines Screen (Negative) U Methamphetamines Scrn (Negative) Ur MDMA Scrn (Ecstasy) (Negative) U Benzodiazepines Scrn (Negative) Urine Cocaine Screen (Negative) U Marijuana (THC) Screen (Negative) Ethyl Alcohol < 10 ( - 10) mg/dL SARS-CoV-2 (PCR) (Negative) Influenza A (RT-PCR) (NEGATIVE) Influenza B (RT-PCR) (NEGATIVE) RSV (PCR) (Negative) 10/08/22 10/08/22 10/08/22 Range/Units 12:50 19:05 19:05 WBC (4.5-11.0) X10^3/uL RBC (4.0-5.2) X10^6/uL Hgb (12.0-16.0) g/dL Hct (36-46) % MCV (80-100) fL MCH (26-34) PG MCHC (30-36) % RDW (11.6-14.8) % Plt Count (150-400) X10^3/uL Neut % (Auto) (50-75) % Lymph % (Auto) (25-40) % [place] % (Auto) (3-14) % Eos % (Auto) (2-4) % Baso % (Auto) (0-2) % Neut # (Auto) (6611-1605) /uL Lymph # (Auto) (5885-0864) /uL [place] # (Auto) (0-900) /uL Eos # (Auto) (0-450) /uL Baso # (Auto) (0-100) /uL PT (10.1-12.7) SECONDS INR (0.9-1.3) APTT 26 (26-36) SECONDS ABG pH (7.35-7.45) ABG pCO2 (35-45) mmHg ABG pO2 (80-100) mmHg ABG HCO3 (22-26) mmol/L ABG Total CO2 (21-31) mmol/L ABG O2 Saturation (95-100) % ABG Base Excess (-2-2) mmol/L FiO2 Sodium (137-145) mmol/L Potassium (3.4-5.1) mmol/L Chloride (98-107) mmol/L Carbon Dioxide (22-32) mmol/L BUN (7-17) mg/dL Creatinine (0.52-1.04) mg/dL Estimated GFR (>60) mL/min BUN/Creatinine Ratio (6-22) Glucose (70-100) mg/dL Lactate (0.7-2.1) mmol/L Calcium (8.4-10.2) mg/dL Magnesium (1.6-2.3) mg/dL Total Bilirubin (0.2-1.3) mg/dL AST (14-36) IU/L ALT (<35) IU/L Alkaline Phosphatase (38-126) U/L Total Creatine Kinase (30-135) U/L CK-MB (CK-2) CK-MB (CK-2) Rel Index Troponin I 2.070 H* (0.01-0.034) ng/mL NT-Pro-B Natriuret Pep (<125) pg/mL Total Protein (6.3-8.2) g/dL Albumin (3.5-5.0) g/dL Globulin (1.7-4.1) g/dL Albumin/Globulin Ratio (1.0-2.8) Lipase (23-300) U/L Procalcitonin (<0.5) ng/mL Urine Color Urine Appearance Urine pH (4.5-8.0) Ur Specific [place] (1.000-1.035) Urine Protein (Negative) Urine Glucose (UA) (Negative) g/dL Urine Ketones (NEGATIVE) Urine Occult Blood (Negative) Urine Nitrate (Negative) Urine Bilirubin (NEGATIVE) Urine Urobilinogen (0.2) E.U./dL Ur Leukocyte Esterase (NEGATIVE) Urine RBC (0-5/HPF) Urine WBC (0-5/HPF) Amorphous Sediment Urine Bacteria (None) Ur Culture Indicated? U Opiates 300ng/mL cut Negative (Negative) Ur Oxycodone Screen Negative (Negative) Urine Methadone Screen Negative (Negative) Ur Barbiturates Screen Negative (Negative) U Tricyclic Antidepress Negative (Negative) Ur Phencyclidine Scrn Negative (Negative) Ur Amphetamines Screen Negative (Negative) U Methamphetamines Scrn Negative (Negative) Ur MDMA Scrn (Ecstasy) Negative (Negative) U Benzodiazepines Scrn Negative (Negative) Urine Cocaine Screen Negative (Negative) U Marijuana (THC) Screen Negative (Negative) Ethyl Alcohol ( - 10) mg/dL SARS-CoV-2 (PCR) (Negative) Influenza A (RT-PCR) (NEGATIVE) Influenza B (RT-PCR) (NEGATIVE) RSV (PCR) (Negative) 10/08/22 10/09/22 10/09/22 Range/Units 19:05 00:30 00:30 WBC (4.5-11.0) X10^3/uL RBC (4.0-5.2) X10^6/uL Hgb (12.0-16.0) g/dL Hct (36-46) % MCV (80-100) fL MCH (26-34) PG MCHC (30-36) % RDW (11.6-14.8) % Plt Count (150-400) X10^3/uL Neut % (Auto) (50-75) % Lymph % (Auto) (25-40) % [place] % (Auto) (3-14) % Eos % (Auto) (2-4) % Baso % (Auto) (0-2) % Neut # (Auto) (7752-8322) /uL Lymph # (Auto) (4149-9639) /uL [place] # (Auto) (0-900) /uL Eos # (Auto) (0-450) /uL Baso # (Auto) (0-100) /uL PT (10.1-12.7) SECONDS INR (0.9-1.3) APTT 76 H* D (26-36) SECONDS ABG pH (7.35-7.45) ABG pCO2 (35-45) mmHg ABG pO2 (80-100) mmHg ABG HCO3 (22-26) mmol/L ABG Total CO2 (21-31) mmol/L ABG O2 Saturation (95-100) % ABG Base Excess (-2-2) mmol/L FiO2 Sodium 139 (137-145) mmol/L Potassium 4.7 D (3.4-5.1) mmol/L Chloride 108 H (98-107) mmol/L Carbon Dioxide 26 (22-32) mmol/L BUN 12 (7-17) mg/dL Creatinine 0.70 (0.52-1.04) mg/dL Estimated GFR > 60 (>60) mL/min BUN/Creatinine Ratio 17.1 (6-22) Glucose 174 H (70-100) mg/dL Lactate (0.7-2.1) mmol/L Calcium 7.0 L (8.4-10.2) mg/dL Magnesium 2.1 (1.6-2.3) mg/dL Total Bilirubin 0.3 (0.2-1.3) mg/dL AST 115 H (14-36) IU/L ALT 80 H (<35) IU/L Alkaline Phosphatase 124 (38-126) U/L Total Creatine Kinase (30-135) U/L CK-MB (CK-2) CK-MB (CK-2) Rel Index Troponin I 3.540 H* (0.01-0.034) ng/mL NT-Pro-B Natriuret Pep (<125) pg/mL Total Protein 5.4 L (6.3-8.2) g/dL Albumin 3.0 L (3.5-5.0) g/dL Globulin 2.4 (1.7-4.1) g/dL Albumin/Globulin Ratio 1.3 (1.0-2.8) Lipase (23-300) U/L Procalcitonin (<0.5) ng/mL Urine Color Urine Appearance Urine pH (4.5-8.0) Ur Specific [place] (1.000-1.035) Urine Protein (Negative) Urine Glucose (UA) (Negative) g/dL Urine Ketones (NEGATIVE) Urine Occult Blood (Negative) Urine Nitrate (Negative) Urine Bilirubin (NEGATIVE) Urine Urobilinogen (0.2) E.U./dL Ur Leukocyte Esterase (NEGATIVE) Urine RBC (0-5/HPF) Urine WBC (0-5/HPF) Amorphous Sediment Urine Bacteria (None) Ur Culture Indicated? U Opiates 300ng/mL cut (Negative) Ur Oxycodone Screen (Negative) Urine Methadone Screen (Negative) Ur Barbiturates Screen (Negative) U Tricyclic Antidepress (Negative) Ur Phencyclidine Scrn (Negative) Ur Amphetamines Screen (Negative) U Methamphetamines Scrn (Negative) Ur MDMA Scrn (Ecstasy) (Negative) U Benzodiazepines Scrn (Negative) Urine Cocaine Screen (Negative) U Marijuana (THC) Screen (Negative) Ethyl Alcohol ( - 10) mg/dL SARS-CoV-2 (PCR) (Negative) Influenza A (RT-PCR) (NEGATIVE) Influenza B (RT-PCR) (NEGATIVE) RSV (PCR) (Negative) 10/09/22 10/09/22 10/09/22 Range/Units 07:30 07:30 07:30 WBC 6.3 (4.5-11.0) X10^3/uL RBC 3.76 L (4.0-5.2) X10^6/uL Hgb 10.5 L (12.0-16.0) g/dL Hct 32.2 L (36-46) % MCV 85.5 (80-100) fL MCH 27.9 (26-34) PG MCHC 32.7 (30-36) % RDW 19.2 H (11.6-14.8) % Plt Count 136 L (150-400) X10^3/uL Neut % (Auto) 74.2 (50-75) % Lymph % (Auto) 19.0 L (25-40) % [place] % (Auto) 6.1 (3-14) % Eos % (Auto) 0.2 L (2-4) % Baso % (Auto) 0.5 (0-2) % Neut # (Auto) 4700 (3265-4021) /uL Lymph # (Auto) 1200 (9151-6651) /uL [place] # (Auto) 400 (0-900) /uL Eos # (Auto) 0 (0-450) /uL Baso # (Auto) 0 (0-100) /uL PT 14.3 H (10.1-12.7) SECONDS INR 1.2 (0.9-1.3) APTT (26-36) SECONDS ABG pH (7.35-7.45) ABG pCO2 (35-45) mmHg ABG pO2 (80-100) mmHg ABG HCO3 (22-26) mmol/L ABG Total CO2 (21-31) mmol/L ABG O2 Saturation (95-100) % ABG Base Excess (-2-2) mmol/L FiO2 Sodium (137-145) mmol/L Potassium (3.4-5.1) mmol/L Chloride (98-107) mmol/L Carbon Dioxide (22-32) mmol/L BUN (7-17) mg/dL Creatinine (0.52-1.04) mg/dL Estimated GFR (>60) mL/min BUN/Creatinine Ratio (6-22) Glucose (70-100) mg/dL Lactate (0.7-2.1) mmol/L Calcium (8.4-10.2) mg/dL Magnesium (1.6-2.3) mg/dL Total Bilirubin (0.2-1.3) mg/dL AST (14-36) IU/L ALT (<35) IU/L Alkaline Phosphatase (38-126) U/L Total Creatine Kinase (30-135) U/L CK-MB (CK-2) CK-MB (CK-2) Rel Index Troponin I 3.520 H* (0.01-0.034) ng/mL NT-Pro-B Natriuret Pep (<125) pg/mL Total Protein (6.3-8.2) g/dL Albumin (3.5-5.0) g/dL Globulin (1.7-4.1) g/dL Albumin/Globulin Ratio (1.0-2.8) Lipase (23-300) U/L Procalcitonin (<0.5) ng/mL Urine Color Urine Appearance Urine pH (4.5-8.0) Ur Specific [place] (1.000-1.035) Urine Protein (Negative) Urine Glucose (UA) (Negative) g/dL Urine Ketones (NEGATIVE) Urine Occult Blood (Negative) Urine Nitrate (Negative) Urine Bilirubin (NEGATIVE) Urine Urobilinogen (0.2) E.U./dL Ur Leukocyte Esterase (NEGATIVE) Urine RBC (0-5/HPF) Urine WBC (0-5/HPF) Amorphous Sediment Urine Bacteria (None) Ur Culture Indicated? U Opiates 300ng/mL cut (Negative) Ur Oxycodone Screen (Negative) Urine Methadone Screen (Negative) Ur Barbiturates Screen (Negative) U Tricyclic Antidepress (Negative) Ur Phencyclidine Scrn (Negative) Ur Amphetamines Screen (Negative) U Methamphetamines Scrn (Negative) Ur MDMA Scrn (Ecstasy) (Negative) U Benzodiazepines Scrn (Negative) Urine Cocaine Screen (Negative) U Marijuana (THC) Screen (Negative) Ethyl Alcohol ( - 10) mg/dL SARS-CoV-2 (PCR) (Negative) Influenza A (RT-PCR) (NEGATIVE) Influenza B (RT-PCR) (NEGATIVE) RSV (PCR) (Negative) 10/09/22 10/09/22 10/09/22 Range/Units 07:30 07:30 07:30 WBC (4.5-11.0) X10^3/uL RBC (4.0-5.2) X10^6/uL Hgb (12.0-16.0) g/dL Hct (36-46) % MCV (80-100) fL MCH (26-34) PG MCHC (30-36) % RDW (11.6-14.8) % Plt Count (150-400) X10^3/uL Neut % (Auto) (50-75) % Lymph % (Auto) (25-40) % [place] % (Auto) (3-14) % Eos % (Auto) (2-4) % Baso % (Auto) (0-2) % Neut # (Auto) (7062-0872) /uL Lymph # (Auto) (3605-9371) /uL [place] # (Auto) (0-900) /uL Eos # (Auto) (0-450) /uL Baso # (Auto) (0-100) /uL PT (10.1-12.7) SECONDS INR (0.9-1.3) APTT 56 H D (26-36) SECONDS ABG pH (7.35-7.45) ABG pCO2 (35-45) mmHg ABG pO2 (80-100) mmHg ABG HCO3 (22-26) mmol/L ABG Total CO2 (21-31) mmol/L ABG O2 Saturation (95-100) % ABG Base Excess (-2-2) mmol/L FiO2 Sodium 137 (137-145) mmol/L Potassium 3.7 (3.4-5.1) mmol/L Chloride 106 (98-107) mmol/L Carbon Dioxide 29 (22-32) mmol/L BUN 12 (7-17) mg/dL Creatinine 0.65 (0.52-1.04) mg/dL Estimated GFR > 60 (>60) mL/min BUN/Creatinine Ratio 18.5 (6-22) Glucose 117 H (70-100) mg/dL Lactate 0.8 (0.7-2.1) mmol/L Calcium 7.0 L (8.4-10.2) mg/dL Magnesium (1.6-2.3) mg/dL Total Bilirubin 0.3 (0.2-1.3) mg/dL AST 136 H (14-36) IU/L ALT 112 H (<35) IU/L Alkaline Phosphatase 121 (38-126) U/L Total Creatine Kinase (30-135) U/L CK-MB (CK-2) CK-MB (CK-2) Rel Index Troponin I (0.01-0.034) ng/mL NT-Pro-B Natriuret Pep (<125) pg/mL Total Protein 5.1 L (6.3-8.2) g/dL Albumin 2.8 L (3.5-5.0) g/dL Globulin 2.3 (1.7-4.1) g/dL Albumin/Globulin Ratio 1.2 (1.0-2.8) Lipase 62 (23-300) U/L Procalcitonin 0.12 (<0.5) ng/mL Urine Color Urine Appearance Urine pH (4.5-8.0) Ur Specific [place] (1.000-1.035) Urine Protein (Negative) Urine Glucose (UA) (Negative) g/dL Urine Ketones (NEGATIVE) Urine Occult Blood (Negative) Urine Nitrate (Negative) Urine Bilirubin (NEGATIVE) Urine Urobilinogen (0.2) E.U./dL Ur Leukocyte Esterase (NEGATIVE) Urine RBC (0-5/HPF) Urine WBC (0-5/HPF) Amorphous Sediment Urine Bacteria (None) Ur Culture Indicated? U Opiates 300ng/mL cut (Negative) Ur Oxycodone Screen (Negative) Urine Methadone Screen (Negative) Ur Barbiturates Screen (Negative) U Tricyclic Antidepress (Negative) Ur Phencyclidine Scrn (Negative) Ur Amphetamines Screen (Negative) U Methamphetamines Scrn (Negative) Ur MDMA Scrn (Ecstasy) (Negative) U Benzodiazepines Scrn (Negative) Urine Cocaine Screen (Negative) U Marijuana (THC) Screen (Negative) Ethyl Alcohol ( - 10) mg/dL SARS-CoV-2 (PCR) (Negative) Influenza A (RT-PCR) (NEGATIVE) Influenza B (RT-PCR) (NEGATIVE) RSV (PCR) (Negative) 10/09/22 10/09/22 10/10/22 Range/Units 13:30 19:25 01:39 WBC (4.5-11.0) X10^3/uL RBC (4.0-5.2) X10^6/uL Hgb (12.0-16.0) g/dL Hct (36-46) % MCV (80-100) fL MCH (26-34) PG MCHC (30-36) % RDW (11.6-14.8) % Plt Count (150-400) X10^3/uL Neut % (Auto) (50-75) % Lymph % (Auto) (25-40) % [place] % (Auto) (3-14) % Eos % (Auto) (2-4) % Baso % (Auto) (0-2) % Neut # (Auto) (3251-1306) /uL Lymph # (Auto) (8296-5693) /uL [place] # (Auto) (0-900) /uL Eos # (Auto) (0-450) /uL Baso # (Auto) (0-100) /uL PT (10.1-12.7) SECONDS INR (0.9-1.3) APTT 50 H 50 H 43 H (26-36) SECONDS ABG pH (7.35-7.45) ABG pCO2 (35-45) mmHg ABG pO2 (80-100) mmHg ABG HCO3 (22-26) mmol/L ABG Total CO2 (21-31) mmol/L ABG O2 Saturation (95-100) % ABG Base Excess (-2-2) mmol/L FiO2 Sodium (137-145) mmol/L Potassium (3.4-5.1) mmol/L Chloride (98-107) mmol/L Carbon Dioxide (22-32) mmol/L BUN (7-17) mg/dL Creatinine (0.52-1.04) mg/dL Estimated GFR (>60) mL/min BUN/Creatinine Ratio (6-22) Glucose (70-100) mg/dL Lactate (0.7-2.1) mmol/L Calcium (8.4-10.2) mg/dL Magnesium (1.6-2.3) mg/dL Total Bilirubin (0.2-1.3) mg/dL AST (14-36) IU/L ALT (<35) IU/L Alkaline Phosphatase (38-126) U/L Total Creatine Kinase (30-135) U/L CK-MB (CK-2) CK-MB (CK-2) Rel Index Troponin I (0.01-0.034) ng/mL NT-Pro-B Natriuret Pep (<125) pg/mL Total Protein (6.3-8.2) g/dL Albumin (3.5-5.0) g/dL Globulin (1.7-4.1) g/dL Albumin/Globulin Ratio (1.0-2.8) Lipase (23-300) U/L Procalcitonin (<0.5) ng/mL Urine Color Urine Appearance Urine pH (4.5-8.0) Ur Specific [place] (1.000-1.035) Urine Protein (Negative) Urine Glucose (UA) (Negative) g/dL Urine Ketones (NEGATIVE) Urine Occult Blood (Negative) Urine Nitrate (Negative) Urine Bilirubin (NEGATIVE) Urine Urobilinogen (0.2) E.U./dL Ur Leukocyte Esterase (NEGATIVE) Urine RBC (0-5/HPF) Urine WBC (0-5/HPF) Amorphous Sediment Urine Bacteria (None) Ur Culture Indicated? U Opiates 300ng/mL cut (Negative) Ur Oxycodone Screen (Negative) Urine Methadone Screen (Negative) Ur Barbiturates Screen (Negative) U Tricyclic Antidepress (Negative) Ur Phencyclidine Scrn (Negative) Ur Amphetamines Screen (Negative) U Methamphetamines Scrn (Negative) Ur MDMA Scrn (Ecstasy) (Negative) U Benzodiazepines Scrn (Negative) Urine Cocaine Screen (Negative) U Marijuana (THC) Screen (Negative) Ethyl Alcohol ( - 10) mg/dL SARS-CoV-2 (PCR) (Negative) Influenza A (RT-PCR) (NEGATIVE) Influenza B (RT-PCR) (NEGATIVE) RSV (PCR) (Negative) 10/10/22 10/10/22 10/10/22 Range/Units 06:20 06:20 06:20 WBC 4.1 L (4.5-11.0) X10^3/uL RBC 3.59 L (4.0-5.2) X10^6/uL Hgb 9.9 L (12.0-16.0) g/dL Hct 30.4 L (36-46) % MCV 84.7 (80-100) fL MCH 27.5 (26-34) PG MCHC 32.5 (30-36) % RDW 18.8 H (11.6-14.8) % Plt Count 114 L (150-400) X10^3/uL Neut % (Auto) 59.3 (50-75) % Lymph % (Auto) 32.2 (25-40) % [place] % (Auto) 7.7 (3-14) % Eos % (Auto) 0.2 L (2-4) % Baso % (Auto) 0.6 (0-2) % Neut # (Auto) 2400 (0007-3387) /uL Lymph # (Auto) 1300 (6888-5361) /uL [place] # (Auto) 300 (0-900) /uL Eos # (Auto) 0 (0-450) /uL Baso # (Auto) 0 (0-100) /uL PT (10.1-12.7) SECONDS INR (0.9-1.3) APTT 44 H (26-36) SECONDS ABG pH (7.35-7.45) ABG pCO2 (35-45) mmHg ABG pO2 (80-100) mmHg ABG HCO3 (22-26) mmol/L ABG Total CO2 (21-31) mmol/L ABG O2 Saturation (95-100) % ABG Base Excess (-2-2) mmol/L FiO2 Sodium 138 (137-145) mmol/L Potassium 3.3 L (3.4-5.1) mmol/L Chloride 105 (98-107) mmol/L Carbon Dioxide 31 (22-32) mmol/L BUN 7 (7-17) mg/dL Creatinine 0.58 (0.52-1.04) mg/dL Estimated GFR > 60 (>60) mL/min BUN/Creatinine Ratio 12.1 (6-22) Glucose 97 (70-100) mg/dL Lactate (0.7-2.1) mmol/L Calcium 7.6 L (8.4-10.2) mg/dL Magnesium (1.6-2.3) mg/dL Total Bilirubin 0.3 (0.2-1.3) mg/dL AST 202 H (14-36) IU/L ALT 260 H (<35) IU/L Alkaline Phosphatase 114 (38-126) U/L Total Creatine Kinase (30-135) U/L CK-MB (CK-2) CK-MB (CK-2) Rel Index Troponin I 1.600 H* (0.01-0.034) ng/mL NT-Pro-B Natriuret Pep 1530 H (<125) pg/mL Total Protein 5.1 L (6.3-8.2) g/dL Albumin 2.8 L (3.5-5.0) g/dL Globulin 2.3 (1.7-4.1) g/dL Albumin/Globulin Ratio 1.2 (1.0-2.8) Lipase (23-300) U/L Procalcitonin (<0.5) ng/mL Urine Color Urine Appearance Urine pH (4.5-8.0) Ur Specific [place] (1.000-1.035) Urine Protein (Negative) Urine Glucose (UA) (Negative) g/dL Urine Ketones (NEGATIVE) Urine Occult Blood (Negative) Urine Nitrate (Negative) Urine Bilirubin (NEGATIVE) Urine Urobilinogen (0.2) E.U./dL Ur Leukocyte Esterase (NEGATIVE) Urine RBC (0-5/HPF) Urine WBC (0-5/HPF) Amorphous Sediment Urine Bacteria (None) Ur Culture Indicated? U Opiates 300ng/mL cut (Negative) Ur Oxycodone Screen (Negative) Urine Methadone Screen (Negative) Ur Barbiturates Screen (Negative) U Tricyclic Antidepress (Negative) Ur Phencyclidine Scrn (Negative) Ur Amphetamines Screen (Negative) U Methamphetamines Scrn (Negative) Ur MDMA Scrn (Ecstasy) (Negative) U Benzodiazepines Scrn (Negative) Urine Cocaine Screen (Negative) U Marijuana (THC) Screen (Negative) Ethyl Alcohol ( - 10) mg/dL SARS-CoV-2 (PCR) (Negative) Influenza A (RT-PCR) (NEGATIVE) Influenza B (RT-PCR) (NEGATIVE) RSV (PCR) (Negative) 10/10/22 10/10/22 10/10/22 Range/Units 12:16 12:16 18:29 WBC (4.5-11.0) X10^3/uL RBC (4.0-5.2) X10^6/uL Hgb (12.0-16.0) g/dL Hct (36-46) % MCV (80-100) fL MCH (26-34) PG MCHC (30-36) % RDW (11.6-14.8) % Plt Count (150-400) X10^3/uL Neut % (Auto) (50-75) % Lymph % (Auto) (25-40) % [place] % (Auto) (3-14) % Eos % (Auto) (2-4) % Baso % (Auto) (0-2) % Neut # (Auto) (2969-2941) /uL Lymph # (Auto) (7321-6088) /uL [place] # (Auto) (0-900) /uL Eos # (Auto) (0-450) /uL Baso # (Auto) (0-100) /uL PT (10.1-12.7) SECONDS INR (0.9-1.3) APTT 46 H 46 H (26-36) SECONDS ABG pH (7.35-7.45) ABG pCO2 (35-45) mmHg ABG pO2 (80-100) mmHg ABG HCO3 (22-26) mmol/L ABG Total CO2 (21-31) mmol/L ABG O2 Saturation (95-100) % ABG Base Excess (-2-2) mmol/L FiO2 Sodium (137-145) mmol/L Potassium (3.4-5.1) mmol/L Chloride (98-107) mmol/L Carbon Dioxide (22-32) mmol/L BUN (7-17) mg/dL Creatinine (0.52-1.04) mg/dL Estimated GFR (>60) mL/min BUN/Creatinine Ratio (6-22) Glucose (70-100) mg/dL Lactate (0.7-2.1) mmol/L Calcium (8.4-10.2) mg/dL Magnesium 1.5 L (1.6-2.3) mg/dL Total Bilirubin (0.2-1.3) mg/dL AST (14-36) IU/L ALT (<35) IU/L Alkaline Phosphatase (38-126) U/L Total Creatine Kinase (30-135) U/L CK-MB (CK-2) CK-MB (CK-2) Rel Index Troponin I (0.01-0.034) ng/mL NT-Pro-B Natriuret Pep (<125) pg/mL Total Protein (6.3-8.2) g/dL Albumin (3.5-5.0) g/dL Globulin (1.7-4.1) g/dL Albumin/Globulin Ratio (1.0-2.8) Lipase (23-300) U/L Procalcitonin (<0.5) ng/mL Urine Color Urine Appearance Urine pH (4.5-8.0) Ur Specific [place] (1.000-1.035) Urine Protein (Negative) Urine Glucose (UA) (Negative) g/dL Urine Ketones (NEGATIVE) Urine Occult Blood (Negative) Urine Nitrate (Negative) Urine Bilirubin (NEGATIVE) Urine Urobilinogen (0.2) E.U./dL Ur Leukocyte Esterase (NEGATIVE) Urine RBC (0-5/HPF) Urine WBC (0-5/HPF) Amorphous Sediment Urine Bacteria (None) Ur Culture Indicated? U Opiates 300ng/mL cut (Negative) Ur Oxycodone Screen (Negative) Urine Methadone Screen (Negative) Ur Barbiturates Screen (Negative) U Tricyclic Antidepress (Negative) Ur Phencyclidine Scrn (Negative) Ur Amphetamines Screen (Negative) U Methamphetamines Scrn (Negative) Ur MDMA Scrn (Ecstasy) (Negative) U Benzodiazepines Scrn (Negative) Urine Cocaine Screen (Negative) U Marijuana (THC) Screen (Negative) Ethyl Alcohol ( - 10) mg/dL SARS-CoV-2 (PCR) (Negative) Influenza A (RT-PCR) (NEGATIVE) Influenza B (RT-PCR) (NEGATIVE) RSV (PCR) (Negative) 10/11/22 10/11/22 10/11/22 Range/Units 01:00 06:07 06:07 WBC 3.9 L (4.5-11.0) X10^3/uL RBC 3.07 L (4.0-5.2) X10^6/uL Hgb 8.6 L (12.0-16.0) g/dL Hct 25.8 L (36-46) % MCV 84.3 (80-100) fL MCH 28.2 (26-34) PG MCHC 33.4 (30-36) % RDW 18.2 H (11.6-14.8) % Plt Count 105 L (150-400) X10^3/uL Neut % (Auto) 57.5 (50-75) % Lymph % (Auto) 32.9 (25-40) % [place] % (Auto) 9.2 (3-14) % Eos % (Auto) 0.2 L (2-4) % Baso % (Auto) 0.2 (0-2) % Neut # (Auto) 2200 (2284-5761) /uL Lymph # (Auto) 1300 (1955-7598) /uL [place] # (Auto) 400 (0-900) /uL Eos # (Auto) 0 (0-450) /uL Baso # (Auto) 0 (0-100) /uL PT (10.1-12.7) SECONDS INR (0.9-1.3) APTT 55 H D (26-36) SECONDS ABG pH (7.35-7.45) ABG pCO2 (35-45) mmHg ABG pO2 (80-100) mmHg ABG HCO3 (22-26) mmol/L ABG Total CO2 (21-31) mmol/L ABG O2 Saturation (95-100) % ABG Base Excess (-2-2) mmol/L FiO2 Sodium 137 (137-145) mmol/L Potassium 3.3 L (3.4-5.1) mmol/L Chloride 112 H (98-107) mmol/L Carbon Dioxide 24 (22-32) mmol/L BUN 4 L (7-17) mg/dL Creatinine 0.48 L (0.52-1.04) mg/dL Estimated GFR > 60 (>60) mL/min BUN/Creatinine Ratio 8.3 (6-22) Glucose 84 (70-100) mg/dL Lactate (0.7-2.1) mmol/L Calcium 6.5 L (8.4-10.2) mg/dL Magnesium (1.6-2.3) mg/dL Total Bilirubin 0.2 (0.2-1.3) mg/dL AST 96 H (14-36) IU/L ALT 210 H (<35) IU/L Alkaline Phosphatase 93 (38-126) U/L Total Creatine Kinase (30-135) U/L CK-MB (CK-2) CK-MB (CK-2) Rel Index Troponin I 0.857 H* (0.01-0.034) ng/mL NT-Pro-B Natriuret Pep (<125) pg/mL Total Protein 4.4 L (6.3-8.2) g/dL Albumin 2.3 L (3.5-5.0) g/dL Globulin 2.1 (1.7-4.1) g/dL Albumin/Globulin Ratio 1.1 (1.0-2.8) Lipase (23-300) U/L Procalcitonin (<0.5) ng/mL Urine Color Urine Appearance Urine pH (4.5-8.0) Ur Specific [place] (1.000-1.035) Urine Protein (Negative) Urine Glucose (UA) (Negative) g/dL Urine Ketones (NEGATIVE) Urine Occult Blood (Negative) Urine Nitrate (Negative) Urine Bilirubin (NEGATIVE) Urine Urobilinogen (0.2) E.U./dL Ur Leukocyte Esterase (NEGATIVE) Urine RBC (0-5/HPF) Urine WBC (0-5/HPF) Amorphous Sediment Urine Bacteria (None) Ur Culture Indicated? U Opiates 300ng/mL cut (Negative) Ur Oxycodone Screen (Negative) Urine Methadone Screen (Negative) Ur Barbiturates Screen (Negative) U Tricyclic Antidepress (Negative) Ur Phencyclidine Scrn (Negative) Ur Amphetamines Screen (Negative) U Methamphetamines Scrn (Negative) Ur MDMA Scrn (Ecstasy) (Negative) U Benzodiazepines Scrn (Negative) Urine Cocaine Screen (Negative) U Marijuana (THC) Screen (Negative) Ethyl Alcohol ( - 10) mg/dL SARS-CoV-2 (PCR) (Negative) Influenza A (RT-PCR) (NEGATIVE) Influenza B (RT-PCR) (NEGATIVE) RSV (PCR) (Negative) 10/11/22 10/11/22 Range/Units 17:44 17:44 WBC 4.5 (4.5-11.0) X10^3/uL RBC 3.65 L (4.0-5.2) X10^6/uL Hgb 10.1 L (12.0-16.0) g/dL Hct 30.8 L (36-46) % MCV 84.4 (80-100) fL MCH 27.7 (26-34) PG MCHC 32.9 (30-36) % RDW 18.4 H (11.6-14.8) % Plt Count 128 L (150-400) X10^3/uL Neut % (Auto) 67.2 (50-75) % Lymph % (Auto) 22.9 L (25-40) % [place] % (Auto) 9.0 (3-14) % Eos % (Auto) 0.3 L (2-4) % Baso % (Auto) 0.6 (0-2) % Neut # (Auto) 3000 (4300-8554) /uL Lymph # (Auto) 1000 L (7548-5292) /uL [place] # (Auto) 400 (0-900) /uL Eos # (Auto) 0 (0-450) /uL Baso # (Auto) 0 (0-100) /uL PT (10.1-12.7) SECONDS INR (0.9-1.3) APTT (26-36) SECONDS ABG pH (7.35-7.45) ABG pCO2 (35-45) mmHg ABG pO2 (80-100) mmHg ABG HCO3 (22-26) mmol/L ABG Total CO2 (21-31) mmol/L ABG O2 Saturation (95-100) % ABG Base Excess (-2-2) mmol/L FiO2 Sodium 138 (137-145) mmol/L Potassium 4.4 (3.4-5.1) mmol/L Chloride 106 (98-107) mmol/L Carbon Dioxide 29 (22-32) mmol/L BUN 5 L (7-17) mg/dL Creatinine 0.60 (0.52-1.04) mg/dL Estimated GFR > 60 (>60) mL/min BUN/Creatinine Ratio 8.3 (6-22) Glucose 90 (70-100) mg/dL Lactate (0.7-2.1) mmol/L Calcium 8.0 L (8.4-10.2) mg/dL Magnesium 1.9 (1.6-2.3) mg/dL Total Bilirubin 0.3 (0.2-1.3) mg/dL AST 76 H (14-36) IU/L ALT 231 H (<35) IU/L Alkaline Phosphatase 120 (38-126) U/L Total Creatine Kinase (30-135) U/L CK-MB (CK-2) CK-MB (CK-2) Rel Index Troponin I (0.01-0.034) ng/mL NT-Pro-B Natriuret Pep (<125) pg/mL Total Protein 5.5 L (6.3-8.2) g/dL Albumin 3.1 L (3.5-5.0) g/dL Globulin 2.4 (1.7-4.1) g/dL Albumin/Globulin Ratio 1.3 (1.0-2.8) Lipase (23-300) U/L Procalcitonin (<0.5) ng/mL Urine Color Urine Appearance Urine pH (4.5-8.0) Ur Specific [place] (1.000-1.035) Urine Protein (Negative) Urine Glucose (UA) (Negative) g/dL Urine Ketones (NEGATIVE) Urine Occult Blood (Negative) Urine Nitrate (Negative) Urine Bilirubin (NEGATIVE) Urine Urobilinogen (0.2) E.U./dL Ur Leukocyte Esterase (NEGATIVE) Urine RBC (0-5/HPF) Urine WBC (0-5/HPF) Amorphous Sediment Urine Bacteria (None) Ur Culture Indicated? U Opiates 300ng/mL cut (Negative) Ur Oxycodone Screen (Negative) Urine Methadone Screen (Negative) Ur Barbiturates Screen (Negative) U Tricyclic Antidepress (Negative) Ur Phencyclidine Scrn (Negative) Ur Amphetamines Screen (Negative) U Methamphetamines Scrn (Negative) Ur MDMA Scrn (Ecstasy) (Negative) U Benzodiazepines Scrn (Negative) Urine Cocaine Screen (Negative) U Marijuana (THC) Screen (Negative) Ethyl Alcohol ( - 10) mg/dL SARS-CoV-2 (PCR) (Negative) Influenza A (RT-PCR) (NEGATIVE) Influenza B (RT-PCR) (NEGATIVE) RSV (PCR) (Negative) Point of Care Testing Stool Occult Blood Negative Imaging Data Chest x-ray: Radiologist's Impression: Close Chest X-Ray (Signed) David Fiore - 10/08/22 Chest X-Ray (Signed) David Fiore - 09/16/22 Echocardiogram Ultrasound (Signed) Benson Jarrell - 07/14/22 EKG Rpt. 06/27/22 EKG Rpt. 06/27/22 Chest X-Ray (Signed) Jude Mora - 06/27/22 EKG Rpt. 06/24/22 Chest X-Ray (Signed) Jono Herrera - 04/20/22 Mammogram Screening (Signed) Randi Pulliam - 12/16/21 Tibia/Fibula X-Ray (Signed) Viet Burton - 08/24/21 Echocardiogram Ultrasound (Signed) Nathan Chambers - 05/01/21 Chest X-Ray (Signed) Sandie Crystal - 04/29/21 Telemetry Strips 04/28/21 Chest X-Ray (Signed) CallJono - 04/27/21 Echocardiogram Ultrasound (Signed) Mei Bazan - 10/15/20 Abdomen/Pelvis CT (Signed) Jono Herrera - 05/04/20 Abdomen/Pelvis CT (Signed) Pamela,Naga - 04/28/20 KUB X-Ray (Signed) Charbel Fioresse - 04/23/20 Lower Extremity Ultrasound (Signed) MorganJude - 08/25/19 Foot X-Ray (Signed) LolyIsaiah - 08/25/19 Pelvis X-Ray (Signed) Anuja Dominique - 08/04/19 Chest X-Ray (Signed) Doni Dominiqueence - 08/04/19 Tibia/Fibula X-Ray (Signed) Catina,Anuja - 08/04/19 Foot X-Ray (Signed) Catina,Anuja - 08/04/19 Ankle X-Ray (Signed) Catina,Anuja - 08/04/19 Shoulder X-Ray (Signed) Naga Santiago - 02/25/19 Mammogram Screening (Signed) Lobito Torres - 12/11/18 Abdomen/Pelvis CT (Signed) Jayme Oakes - 09/28/18 EKG Rpt. 08/30/18 Abdomen/Pelvis CT (Signed) Sandie Crystal - 08/10/18 Telemetry Strips 04/09/18 EKG Rpt. 03/20/18 Chest X-Ray (Signed) Anuja Dominique - 03/20/18 Launch?[address] [address] XRay Report Signed Patient: Minnie Price MR#: [id number] : 1965 Acct:[id number] Age/Sex: 57 / F Date of Service: 10/08/22 Loc: ED Accession Number: [id number] ?? Procedure: XR chest 1V Ordering Provider: Isamar Price D.O. PROCEDURE:? XR CHEST 1V ? INDICATIONS:? chest pain ? TECHNIQUE:? One view of the chest was acquired.? ? COMPARISON:? [facility], CR, XR CHEST 2V, 04/20/2022, 16:24.? [facility], CR, XR CHEST 1V, 06/27/2022, 12:54.? [facility], CR, XR CHEST 1V, 09/16/2022, 5:14. ? FINDINGS:? ? Surgical changes and devices:? None.? ? Lungs and pleura:? On this semiupright portable chest examination, no large pneumothorax or large pleural effusions are seen.? No focal infiltrates are seen.? ? Mediastinum:? Mediastinal contours appear normal.? Heart size is mildly enlarged.? ? Bones and chest wall:? No suspicious bony lesions.? Age-appropriate bony degenerative changes are seen.? Overlying soft tissues appear unremarkable.? ? ? IMPRESSION:? Mild cardiomegaly. ? No significant pulmonary abnormality is seen. ? ? Dictated by: David Fiore M.D. on 10/08/2022 at 9:39 ? ? Approved by: David Fiore M.D. on 10/08/2022 at 9:40?? ECG Data Attestation: I personally reviewed and interpreted this ECG as follows: Interpretation: Initial monitor showed VFib, patient defibrillated and showed junctional or atrial fibrillation on monitor. AFib rate of 105 QRS of 90 QTC of 430. No acute ST elevation appreciated. EKG 2. Shows sinus rhythm rate of 60 6p are 160 QRS of 110 QTC 463. Incomplete right bundle.. No ST elevation. MDM Narrative Medical decision making narrative: This is a 57-year-old female who presented with possible flu-like symptoms patient had a cardiac arrest in the waiting room. Patient had approximately 10 minutes of CPR total, she received 1 mg of epi, amiodarone 300 mg apand pear to be in VFib she was defibrillated and cardioverted to AFib which ultimately became a sinus rhythm. Patient had almost immediate regain of pulses and within several minutes was conversant. Initial labs show low calcium, potassium is relatively normal she is had issues in the past. She appeared to be in VFib arrest, she responded well to diff fibrillation converted to AFib and is now conversant. Patient is able to give history, she also received epi 1 mg, amiodarone 300 mg continuing with 6 hour infusion. Patient has been persistently hypotensive initially was started norepinephrine but after conversation with Cardiology they recommend phenylephrine and changed over and patient has responded well maintaining a map greater than 65 but has had a systolic often in the 100 range. Patient received fluids she did not appear significantly fluid overloaded but is high risk. Her labs and imaging showed some mild electrolyte abnormalities with potassium of 3.3, calcium was also low, magnesium is technically normal but was recommended goals of potassium of greater than 4 and 2 for magnesium. Patient's ABG post CPR is essentially normal. Patient does not have any renal dysfunction, no significant anemia, normal LFTs otherwise, troponin on repeat did trend upwards but this could very easily be from cardiac shock and CPR will continue to trend. CTA shows pulmonary artery hypertension possibly from enlarged main pulmonary artery, no PE or other clear cause CT abdomen pelvis also does not show a clear cause for her cardiac arrest today, she has multiple rib fractures from her CPR. Patient has had some pain she responds well to fentanyl. She has been oxygenating appropriately but has been on 2 L. patient's urine shows possible infection so she was covered with an antibiotic. Had multiple consultations with Cardiology through [facility] as well as Dr. Benavides at [facility]. No bed availability continuing to seek placement with [facility] through regional hotline. Dr. Bazan from Cardiology called back her stat echo shows a decrease in her EF to 35 % which is new from her priors as well as focal wall motion abnormalities he does recommend continue with aspirin, high-dose statin, heparin and needs transfer for cardiac catheterization in ICD placement. Patient signed out to Dr. Garcia select 11/14, patient has repeat labs pending this evening, plan to continue amiodarone, monitor electrolytes, phenylephrine and attempting to transfer. There is critical bed shortage in the region and patient has been placed on [facility] regional hotline list. Radha-patient signed out to me by Dr. Price. He was seen evaluated patient myself she. Sh presently awake alert and pleasant. She has no complaints. She actually did have a nonsustained run of V. She continues on amiodarone drip. Awaiting placement is. Troponin continues to rise. She is still requiring a touch of vasopressor to help with blood pressure support. EF 35-40%. Once IV amiodarone is done will likely need p.o. amiodarone. Significant bed critical shortage she is on multiple wait list and [facility] has been notified. <Yessi Garcia, DO - Last Filed: 10/16/22 06:55> Lab Data Labs: Lab Results 10/08/22 10/08/22 10/08/22 Range/Units 10:03 10:11 10:11 WBC 4.6 (4.5-11.0) X10^3/uL RBC 4.21 (4.0-5.2) X10^6/uL Hgb 11.7 L (12.0-16.0) g/dL Hct 35.9 L (36-46) % MCV 85.3 (80-100) fL MCH 27.7 (26-34) PG MCHC 32.5 (30-36) % RDW 19.3 H (11.6-14.8) % Plt Count 182 (150-400) X10^3/uL Neut % (Auto) 69.7 (50-75) % Lymph % (Auto) 22.1 L (25-40) % [place] % (Auto) 7.9 (3-14) % Eos % (Auto) 0.1 L (2-4) % Baso % (Auto) 0.2 (0-2) % Neut # (Auto) 3200 (0513-4133) /uL Lymph # (Auto) 1000 L (0962-4799) /uL [place] # (Auto) 400 (0-900) /uL Eos # (Auto) 0 (0-450) /uL Baso # (Auto) 0 (0-100) /uL PT (10.1-12.7) SECONDS INR (0.9-1.3) APTT (26-36) SECONDS ABG pH (7.35-7.45) ABG pCO2 (35-45) mmHg ABG pO2 (80-100) mmHg ABG HCO3 (22-26) mmol/L ABG Total CO2 (21-31) mmol/L ABG O2 Saturation (95-100) % ABG Base Excess (-2-2) mmol/L FiO2 Sodium 143 (137-145) mmol/L Potassium 3.3 L (3.4-5.1) mmol/L Chloride 104 (98-107) mmol/L Carbon Dioxide 34 H (22-32) mmol/L BUN 12 (7-17) mg/dL Creatinine 0.60 (0.52-1.04) mg/dL Estimated GFR > 60 (>60) mL/min BUN/Creatinine Ratio 20.0 (6-22) Glucose 95 (70-100) mg/dL Lactate (0.7-2.1) mmol/L Calcium 7.9 L (8.4-10.2) mg/dL Magnesium (1.6-2.3) mg/dL Total Bilirubin 0.3 (0.2-1.3) mg/dL AST 18 (14-36) IU/L ALT 15 (<35) IU/L Alkaline Phosphatase 104 (38-126) U/L Total Creatine Kinase (30-135) U/L CK-MB (CK-2) CK-MB (CK-2) Rel Index Troponin I (0.01-0.034) ng/mL NT-Pro-B Natriuret Pep (<125) pg/mL Total Protein 6.4 (6.3-8.2) g/dL Albumin 3.5 (3.5-5.0) g/dL Globulin 2.9 (1.7-4.1) g/dL Albumin/Globulin Ratio 1.2 (1.0-2.8) Lipase 45 (23-300) U/L Procalcitonin < 0.03 (<0.5) ng/mL Urine Color Urine Appearance Urine pH (4.5-8.0) Ur Specific [place] (1.000-1.035) Urine Protein (Negative) Urine Glucose (UA) (Negative) g/dL Urine Ketones (NEGATIVE) Urine Occult Blood (Negative) Urine Nitrate (Negative) Urine Bilirubin (NEGATIVE) Urine Urobilinogen (0.2) E.U./dL Ur Leukocyte Esterase (NEGATIVE) Urine RBC (0-5/HPF) Urine WBC (0-5/HPF) Amorphous Sediment Urine Bacteria (None) Ur Culture Indicated? U Opiates 300ng/mL cut (Negative) Ur Oxycodone Screen (Negative) Urine Methadone Screen (Negative) Ur Barbiturates Screen (Negative) U Tricyclic Antidepress (Negative) Ur Phencyclidine Scrn (Negative) Ur Amphetamines Screen (Negative) U Methamphetamines Scrn (Negative) Ur MDMA Scrn (Ecstasy) (Negative) U Benzodiazepines Scrn (Negative) Urine Cocaine Screen (Negative) U Marijuana (THC) Screen (Negative) Ethyl Alcohol ( - 10) mg/dL SARS-CoV-2 (PCR) Negative (Negative) Influenza A (RT-PCR) Flu a negative (NEGATIVE) Influenza B (RT-PCR) Flu b negative (NEGATIVE) RSV (PCR) Negative (Negative) 10/08/22 10/08/22 10/08/22 Range/Units 10:11 10:11 10:11 WBC (4.5-11.0) X10^3/uL RBC (4.0-5.2) X10^6/uL Hgb (12.0-16.0) g/dL Hct (36-46) % MCV (80-100) fL MCH (26-34) PG MCHC (30-36) % RDW (11.6-14.8) % Plt Count (150-400) X10^3/uL Neut % (Auto) (50-75) % Lymph % (Auto) (25-40) % [place] % (Auto) (3-14) % Eos % (Auto) (2-4) % Baso % (Auto) (0-2) % Neut # (Auto) (1523-2738) /uL Lymph # (Auto) (9977-5749) /uL [place] # (Auto) (0-900) /uL Eos # (Auto) (0-450) /uL Baso # (Auto) (0-100) /uL PT 11.3 (10.1-12.7) SECONDS INR 1.0 (0.9-1.3) APTT 29 (26-36) SECONDS ABG pH (7.35-7.45) ABG pCO2 (35-45) mmHg ABG pO2 (80-100) mmHg ABG HCO3 (22-26) mmol/L ABG Total CO2 (21-31) mmol/L ABG O2 Saturation (95-100) % ABG Base Excess (-2-2) mmol/L FiO2 Sodium (137-145) mmol/L Potassium (3.4-5.1) mmol/L Chloride (98-107) mmol/L Carbon Dioxide (22-32) mmol/L BUN (7-17) mg/dL Creatinine (0.52-1.04) mg/dL Estimated GFR (>60) mL/min BUN/Creatinine Ratio (6-22) Glucose (70-100) mg/dL Lactate 1.0 (0.7-2.1) mmol/L Calcium (8.4-10.2) mg/dL Magnesium (1.6-2.3) mg/dL Total Bilirubin (0.2-1.3) mg/dL AST (14-36) IU/L ALT (<35) IU/L Alkaline Phosphatase (38-126) U/L Total Creatine Kinase 32 (30-135) U/L CK-MB (CK-2) TNP CK-MB (CK-2) Rel Index TNP Troponin I < 0.012 (0.01-0.034) ng/mL NT-Pro-B Natriuret Pep 240 H (<125) pg/mL Total Protein (6.3-8.2) g/dL Albumin (3.5-5.0) g/dL Globulin (1.7-4.1) g/dL Albumin/Globulin Ratio (1.0-2.8) Lipase (23-300) U/L Procalcitonin (<0.5) ng/mL Urine Color Urine Appearance Urine pH (4.5-8.0) Ur Specific [place] (1.000-1.035) Urine Protein (Negative) Urine Glucose (UA) (Negative) g/dL Urine Ketones (NEGATIVE) Urine Occult Blood (Negative) Urine Nitrate (Negative) Urine Bilirubin (NEGATIVE) Urine Urobilinogen (0.2) E.U./dL Ur Leukocyte Esterase (NEGATIVE) Urine RBC (0-5/HPF) Urine WBC (0-5/HPF) Amorphous Sediment Urine Bacteria (None) Ur Culture Indicated? U Opiates 300ng/mL cut (Negative) Ur Oxycodone Screen (Negative) Urine Methadone Screen (Negative) Ur Barbiturates Screen (Negative) U Tricyclic Antidepress (Negative) Ur Phencyclidine Scrn (Negative) Ur Amphetamines Screen (Negative) U Methamphetamines Scrn (Negative) Ur MDMA Scrn (Ecstasy) (Negative) U Benzodiazepines Scrn (Negative) Urine Cocaine Screen (Negative) U Marijuana (THC) Screen (Negative) Ethyl Alcohol ( - 10) mg/dL SARS-CoV-2 (PCR) (Negative) Influenza A (RT-PCR) (NEGATIVE) Influenza B (RT-PCR) (NEGATIVE) RSV (PCR) (Negative) 10/08/22 10/08/22 10/08/22 Range/Units 10:11 10:43 12:50 WBC (4.5-11.0) X10^3/uL RBC (4.0-5.2) X10^6/uL Hgb (12.0-16.0) g/dL Hct (36-46) % MCV (80-100) fL MCH (26-34) PG MCHC (30-36) % RDW (11.6-14.8) % Plt Count (150-400) X10^3/uL Neut % (Auto) (50-75) % Lymph % (Auto) (25-40) % [place] % (Auto) (3-14) % Eos % (Auto) (2-4) % Baso % (Auto) (0-2) % Neut # (Auto) (4840-9343) /uL Lymph # (Auto) (6427-3576) /uL [place] # (Auto) (0-900) /uL Eos # (Auto) (0-450) /uL Baso # (Auto) (0-100) /uL PT (10.1-12.7) SECONDS INR (0.9-1.3) APTT (26-36) SECONDS ABG pH 7.40 (7.35-7.45) ABG pCO2 37.3 (35-45) mmHg ABG pO2 144 H (80-100) mmHg ABG HCO3 23 (22-26) mmol/L ABG Total CO2 24 (21-31) mmol/L ABG O2 Saturation 99 (95-100) % ABG Base Excess -2.0 (-2-2) mmol/L FiO2 80 Sodium (137-145) mmol/L Potassium (3.4-5.1) mmol/L Chloride (98-107) mmol/L Carbon Dioxide (22-32) mmol/L BUN (7-17) mg/dL Creatinine (0.52-1.04) mg/dL Estimated GFR (>60) mL/min BUN/Creatinine Ratio (6-22) Glucose (70-100) mg/dL Lactate 1.4 (0.7-2.1) mmol/L Calcium (8.4-10.2) mg/dL Magnesium 1.8 (1.6-2.3) mg/dL Total Bilirubin (0.2-1.3) mg/dL AST (14-36) IU/L ALT (<35) IU/L Alkaline Phosphatase (38-126) U/L Total Creatine Kinase (30-135) U/L CK-MB (CK-2) CK-MB (CK-2) Rel Index Troponin I (0.01-0.034) ng/mL NT-Pro-B Natriuret Pep (<125) pg/mL Total Protein (6.3-8.2) g/dL Albumin (3.5-5.0) g/dL Globulin (1.7-4.1) g/dL Albumin/Globulin Ratio (1.0-2.8) Lipase (23-300) U/L Procalcitonin (<0.5) ng/mL Urine Color Urine Appearance Urine pH (4.5-8.0) Ur Specific [place] (1.000-1.035) Urine Protein (Negative) Urine Glucose (UA) (Negative) g/dL Urine Ketones (NEGATIVE) Urine Occult Blood (Negative) Urine Nitrate (Negative) Urine Bilirubin (NEGATIVE) Urine Urobilinogen (0.2) E.U./dL Ur Leukocyte Esterase (NEGATIVE) Urine RBC (0-5/HPF) Urine WBC (0-5/HPF) Amorphous Sediment Urine Bacteria (None) Ur Culture Indicated? U Opiates 300ng/mL cut (Negative) Ur Oxycodone Screen (Negative) Urine Methadone Screen (Negative) Ur Barbiturates Screen (Negative) U Tricyclic Antidepress (Negative) Ur Phencyclidine Scrn (Negative) Ur Amphetamines Screen (Negative) U Methamphetamines Scrn (Negative) Ur MDMA Scrn (Ecstasy) (Negative) U Benzodiazepines Scrn (Negative) Urine Cocaine Screen (Negative) U Marijuana (THC) Screen (Negative) Ethyl Alcohol ( - 10) mg/dL SARS-CoV-2 (PCR) (Negative) Influenza A (RT-PCR) (NEGATIVE) Influenza B (RT-PCR) (NEGATIVE) RSV (PCR) (Negative) 10/08/22 10/08/22 10/08/22 Range/Units 12:50 12:50 12:50 WBC (4.5-11.0) X10^3/uL RBC (4.0-5.2) X10^6/uL Hgb (12.0-16.0) g/dL Hct (36-46) % MCV (80-100) fL MCH (26-34) PG MCHC (30-36) % RDW (11.6-14.8) % Plt Count (150-400) X10^3/uL Neut % (Auto) (50-75) % Lymph % (Auto) (25-40) % [place] % (Auto) (3-14) % Eos % (Auto) (2-4) % Baso % (Auto) (0-2) % Neut # (Auto) (7185-1968) /uL Lymph # (Auto) (1440-6263) /uL [place] # (Auto) (0-900) /uL Eos # (Auto) (0-450) /uL Baso # (Auto) (0-100) /uL PT (10.1-12.7) SECONDS INR (0.9-1.3) APTT (26-36) SECONDS ABG pH (7.35-7.45) ABG pCO2 (35-45) mmHg ABG pO2 (80-100) mmHg ABG HCO3 (22-26) mmol/L ABG Total CO2 (21-31) mmol/L ABG O2 Saturation (95-100) % ABG Base Excess (-2-2) mmol/L FiO2 Sodium (137-145) mmol/L Potassium (3.4-5.1) mmol/L Chloride (98-107) mmol/L Carbon Dioxide (22-32) mmol/L BUN (7-17) mg/dL Creatinine (0.52-1.04) mg/dL Estimated GFR (>60) mL/min BUN/Creatinine Ratio (6-22) Glucose (70-100) mg/dL Lactate (0.7-2.1) mmol/L Calcium (8.4-10.2) mg/dL Magnesium (1.6-2.3) mg/dL Total Bilirubin (0.2-1.3) mg/dL AST (14-36) IU/L ALT (<35) IU/L Alkaline Phosphatase (38-126) U/L Total Creatine Kinase (30-135) U/L CK-MB (CK-2) CK-MB (CK-2) Rel Index Troponin I 0.552 H* (0.01-0.034) ng/mL NT-Pro-B Natriuret Pep (<125) pg/mL Total Protein (6.3-8.2) g/dL Albumin (3.5-5.0) g/dL Globulin (1.7-4.1) g/dL Albumin/Globulin Ratio (1.0-2.8) Lipase (23-300) U/L Procalcitonin (<0.5) ng/mL Urine Color Yellow Urine Appearance Sl cloudy Urine pH 8.0 (4.5-8.0) Ur Specific [place] 1.015 (1.000-1.035) Urine Protein 3+ H (Negative) Urine Glucose (UA) 1+ H (Negative) g/dL Urine Ketones Negative (NEGATIVE) Urine Occult Blood 3+ H (Negative) Urine Nitrate Negative (Negative) Urine Bilirubin Negative (NEGATIVE) Urine Urobilinogen 0.2 (0.2) E.U./dL Ur Leukocyte Esterase Trace H (NEGATIVE) Urine RBC >100/hpf H (0-5/HPF) Urine WBC 5-10/hpf H (0-5/HPF) Amorphous Sediment 2+ Urine Bacteria Occasional (0-1) (None) Ur Culture Indicated? Specimen cultured U Opiates 300ng/mL cut (Negative) Ur Oxycodone Screen (Negative) Urine Methadone Screen (Negative) Ur Barbiturates Screen (Negative) U Tricyclic Antidepress (Negative) Ur Phencyclidine Scrn (Negative) Ur Amphetamines Screen (Negative) U Methamphetamines Scrn (Negative) Ur MDMA Scrn (Ecstasy) (Negative) U Benzodiazepines Scrn (Negative) Urine Cocaine Screen (Negative) U Marijuana (THC) Screen (Negative) Ethyl Alcohol < 10 ( - 10) mg/dL SARS-CoV-2 (PCR) (Negative) Influenza A (RT-PCR) (NEGATIVE) Influenza B (RT-PCR) (NEGATIVE) RSV (PCR) (Negative) 10/08/22 10/08/22 10/08/22 Range/Units 12:50 19:05 19:05 WBC (4.5-11.0) X10^3/uL RBC (4.0-5.2) X10^6/uL Hgb (12.0-16.0) g/dL Hct (36-46) % MCV (80-100) fL MCH (26-34) PG MCHC (30-36) % RDW (11.6-14.8) % Plt Count (150-400) X10^3/uL Neut % (Auto) (50-75) % Lymph % (Auto) (25-40) % [place] % (Auto) (3-14) % Eos % (Auto) (2-4) % Baso % (Auto) (0-2) % Neut # (Auto) (1147-1976) /uL Lymph # (Auto) (9223-1564) /uL [place] # (Auto) (0-900) /uL Eos # (Auto) (0-450) /uL Baso # (Auto) (0-100) /uL PT (10.1-12.7) SECONDS INR (0.9-1.3) APTT 26 (26-36) SECONDS ABG pH (7.35-7.45) ABG pCO2 (35-45) mmHg ABG pO2 (80-100) mmHg ABG HCO3 (22-26) mmol/L ABG Total CO2 (21-31) mmol/L ABG O2 Saturation (95-100) % ABG Base Excess (-2-2) mmol/L FiO2 Sodium (137-145) mmol/L Potassium (3.4-5.1) mmol/L Chloride (98-107) mmol/L Carbon Dioxide (22-32) mmol/L BUN (7-17) mg/dL Creatinine (0.52-1.04) mg/dL Estimated GFR (>60) mL/min BUN/Creatinine Ratio (6-22) Glucose (70-100) mg/dL Lactate (0.7-2.1) mmol/L Calcium (8.4-10.2) mg/dL Magnesium (1.6-2.3) mg/dL Total Bilirubin (0.2-1.3) mg/dL AST (14-36) IU/L ALT (<35) IU/L Alkaline Phosphatase (38-126) U/L Total Creatine Kinase (30-135) U/L CK-MB (CK-2) CK-MB (CK-2) Rel Index Troponin I 2.070 H* (0.01-0.034) ng/mL NT-Pro-B Natriuret Pep (<125) pg/mL Total Protein (6.3-8.2) g/dL Albumin (3.5-5.0) g/dL Globulin (1.7-4.1) g/dL Albumin/Globulin Ratio (1.0-2.8) Lipase (23-300) U/L Procalcitonin (<0.5) ng/mL Urine Color Urine Appearance Urine pH (4.5-8.0) Ur Specific [place] (1.000-1.035) Urine Protein (Negative) Urine Glucose (UA) (Negative) g/dL Urine Ketones (NEGATIVE) Urine Occult Blood (Negative) Urine Nitrate (Negative) Urine Bilirubin (NEGATIVE) Urine Urobilinogen (0.2) E.U./dL Ur Leukocyte Esterase (NEGATIVE) Urine RBC (0-5/HPF) Urine WBC (0-5/HPF) Amorphous Sediment Urine Bacteria (None) Ur Culture Indicated? U Opiates 300ng/mL cut Negative (Negative) Ur Oxycodone Screen Negative (Negative) Urine Methadone Screen Negative (Negative) Ur Barbiturates Screen Negative (Negative) U Tricyclic Antidepress Negative (Negative) Ur Phencyclidine Scrn Negative (Negative) Ur Amphetamines Screen Negative (Negative) U Methamphetamines Scrn Negative (Negative) Ur MDMA Scrn (Ecstasy) Negative (Negative) U Benzodiazepines Scrn Negative (Negative) Urine Cocaine Screen Negative (Negative) U Marijuana (THC) Screen Negative (Negative) Ethyl Alcohol ( - 10) mg/dL SARS-CoV-2 (PCR) (Negative) Influenza A (RT-PCR) (NEGATIVE) Influenza B (RT-PCR) (NEGATIVE) RSV (PCR) (Negative) 10/08/22 10/09/22 10/09/22 Range/Units 19:05 00:30 00:30 WBC (4.5-11.0) X10^3/uL RBC (4.0-5.2) X10^6/uL Hgb (12.0-16.0) g/dL Hct (36-46) % MCV (80-100) fL MCH (26-34) PG MCHC (30-36) % RDW (11.6-14.8) % Plt Count (150-400) X10^3/uL Neut % (Auto) (50-75) % Lymph % (Auto) (25-40) % [place] % (Auto) (3-14) % Eos % (Auto) (2-4) % Baso % (Auto) (0-2) % Neut # (Auto) (2601-7997) /uL Lymph # (Auto) (0114-0620) /uL [place] # (Auto) (0-900) /uL Eos # (Auto) (0-450) /uL Baso # (Auto) (0-100) /uL PT (10.1-12.7) SECONDS INR (0.9-1.3) APTT 76 H* D (26-36) SECONDS ABG pH (7.35-7.45) ABG pCO2 (35-45) mmHg ABG pO2 (80-100) mmHg ABG HCO3 (22-26) mmol/L ABG Total CO2 (21-31) mmol/L ABG O2 Saturation (95-100) % ABG Base Excess (-2-2) mmol/L FiO2 Sodium 139 (137-145) mmol/L Potassium 4.7 D (3.4-5.1) mmol/L Chloride 108 H (98-107) mmol/L Carbon Dioxide 26 (22-32) mmol/L BUN 12 (7-17) mg/dL Creatinine 0.70 (0.52-1.04) mg/dL Estimated GFR > 60 (>60) mL/min BUN/Creatinine Ratio 17.1 (6-22) Glucose 174 H (70-100) mg/dL Lactate (0.7-2.1) mmol/L Calcium 7.0 L (8.4-10.2) mg/dL Magnesium 2.1 (1.6-2.3) mg/dL Total Bilirubin 0.3 (0.2-1.3) mg/dL AST 115 H (14-36) IU/L ALT 80 H (<35) IU/L Alkaline Phosphatase 124 (38-126) U/L Total Creatine Kinase (30-135) U/L CK-MB (CK-2) CK-MB (CK-2) Rel Index Troponin I 3.540 H* (0.01-0.034) ng/mL NT-Pro-B Natriuret Pep (<125) pg/mL Total Protein 5.4 L (6.3-8.2) g/dL Albumin 3.0 L (3.5-5.0) g/dL Globulin 2.4 (1.7-4.1) g/dL Albumin/Globulin Ratio 1.3 (1.0-2.8) Lipase (23-300) U/L Procalcitonin (<0.5) ng/mL Urine Color Urine Appearance Urine pH (4.5-8.0) Ur Specific [place] (1.000-1.035) Urine Protein (Negative) Urine Glucose (UA) (Negative) g/dL Urine Ketones (NEGATIVE) Urine Occult Blood (Negative) Urine Nitrate (Negative) Urine Bilirubin (NEGATIVE) Urine Urobilinogen (0.2) E.U./dL Ur Leukocyte Esterase (NEGATIVE) Urine RBC (0-5/HPF) Urine WBC (0-5/HPF) Amorphous Sediment Urine Bacteria (None) Ur Culture Indicated? U Opiates 300ng/mL cut (Negative) Ur Oxycodone Screen (Negative) Urine Methadone Screen (Negative) Ur Barbiturates Screen (Negative) U Tricyclic Antidepress (Negative) Ur Phencyclidine Scrn (Negative) Ur Amphetamines Screen (Negative) U Methamphetamines Scrn (Negative) Ur MDMA Scrn (Ecstasy) (Negative) U Benzodiazepines Scrn (Negative) Urine Cocaine Screen (Negative) U Marijuana (THC) Screen (Negative) Ethyl Alcohol ( - 10) mg/dL SARS-CoV-2 (PCR) (Negative) Influenza A (RT-PCR) (NEGATIVE) Influenza B (RT-PCR) (NEGATIVE) RSV (PCR) (Negative) 10/09/22 10/09/22 10/09/22 Range/Units 07:30 07:30 07:30 WBC 6.3 (4.5-11.0) X10^3/uL RBC 3.76 L (4.0-5.2) X10^6/uL Hgb 10.5 L (12.0-16.0) g/dL Hct 32.2 L (36-46) % MCV 85.5 (80-100) fL MCH 27.9 (26-34) PG MCHC 32.7 (30-36) % RDW 19.2 H (11.6-14.8) % Plt Count 136 L (150-400) X10^3/uL Neut % (Auto) 74.2 (50-75) % Lymph % (Auto) 19.0 L (25-40) % [place] % (Auto) 6.1 (3-14) % Eos % (Auto) 0.2 L (2-4) % Baso % (Auto) 0.5 (0-2) % Neut # (Auto) 4700 (9745-7496) /uL Lymph # (Auto) 1200 (0557-3700) /uL [place] # (Auto) 400 (0-900) /uL Eos # (Auto) 0 (0-450) /uL Baso # (Auto) 0 (0-100) /uL PT 14.3 H (10.1-12.7) SECONDS INR 1.2 (0.9-1.3) APTT (26-36) SECONDS ABG pH (7.35-7.45) ABG pCO2 (35-45) mmHg ABG pO2 (80-100) mmHg ABG HCO3 (22-26) mmol/L ABG Total CO2 (21-31) mmol/L ABG O2 Saturation (95-100) % ABG Base Excess (-2-2) mmol/L FiO2 Sodium (137-145) mmol/L Potassium (3.4-5.1) mmol/L Chloride (98-107) mmol/L Carbon Dioxide (22-32) mmol/L BUN (7-17) mg/dL Creatinine (0.52-1.04) mg/dL Estimated GFR (>60) mL/min BUN/Creatinine Ratio (6-22) Glucose (70-100) mg/dL Lactate (0.7-2.1) mmol/L Calcium (8.4-10.2) mg/dL Magnesium (1.6-2.3) mg/dL Total Bilirubin (0.2-1.3) mg/dL AST (14-36) IU/L ALT (<35) IU/L Alkaline Phosphatase (38-126) U/L Total Creatine Kinase (30-135) U/L CK-MB (CK-2) CK-MB (CK-2) Rel Index Troponin I 3.520 H* (0.01-0.034) ng/mL NT-Pro-B Natriuret Pep (<125) pg/mL Total Protein (6.3-8.2) g/dL Albumin (3.5-5.0) g/dL Globulin (1.7-4.1) g/dL Albumin/Globulin Ratio (1.0-2.8) Lipase (23-300) U/L Procalcitonin (<0.5) ng/mL Urine Color Urine Appearance Urine pH (4.5-8.0) Ur Specific [place] (1.000-1.035) Urine Protein (Negative) Urine Glucose (UA) (Negative) g/dL Urine Ketones (NEGATIVE) Urine Occult Blood (Negative) Urine Nitrate (Negative) Urine Bilirubin (NEGATIVE) Urine Urobilinogen (0.2) E.U./dL Ur Leukocyte Esterase (NEGATIVE) Urine RBC (0-5/HPF) Urine WBC (0-5/HPF) Amorphous Sediment Urine Bacteria (None) Ur Culture Indicated? U Opiates 300ng/mL cut (Negative) Ur Oxycodone Screen (Negative) Urine Methadone Screen (Negative) Ur Barbiturates Screen (Negative) U Tricyclic Antidepress (Negative) Ur Phencyclidine Scrn (Negative) Ur Amphetamines Screen (Negative) U Methamphetamines Scrn (Negative) Ur MDMA Scrn (Ecstasy) (Negative) U Benzodiazepines Scrn (Negative) Urine Cocaine Screen (Negative) U Marijuana (THC) Screen (Negative) Ethyl Alcohol ( - 10) mg/dL SARS-CoV-2 (PCR) (Negative) Influenza A (RT-PCR) (NEGATIVE) Influenza B (RT-PCR) (NEGATIVE) RSV (PCR) (Negative) 10/09/22 10/09/22 10/09/22 Range/Units 07:30 07:30 07:30 WBC (4.5-11.0) X10^3/uL RBC (4.0-5.2) X10^6/uL Hgb (12.0-16.0) g/dL Hct (36-46) % MCV (80-100) fL MCH (26-34) PG MCHC (30-36) % RDW (11.6-14.8) % Plt Count (150-400) X10^3/uL Neut % (Auto) (50-75) % Lymph % (Auto) (25-40) % [place] % (Auto) (3-14) % Eos % (Auto) (2-4) % Baso % (Auto) (0-2) % Neut # (Auto) (4727-8048) /uL Lymph # (Auto) (6575-4172) /uL [place] # (Auto) (0-900) /uL Eos # (Auto) (0-450) /uL Baso # (Auto) (0-100) /uL PT (10.1-12.7) SECONDS INR (0.9-1.3) APTT 56 H D (26-36) SECONDS ABG pH (7.35-7.45) ABG pCO2 (35-45) mmHg ABG pO2 (80-100) mmHg ABG HCO3 (22-26) mmol/L ABG Total CO2 (21-31) mmol/L ABG O2 Saturation (95-100) % ABG Base Excess (-2-2) mmol/L FiO2 Sodium 137 (137-145) mmol/L Potassium 3.7 (3.4-5.1) mmol/L Chloride 106 (98-107) mmol/L Carbon Dioxide 29 (22-32) mmol/L BUN 12 (7-17) mg/dL Creatinine 0.65 (0.52-1.04) mg/dL Estimated GFR > 60 (>60) mL/min BUN/Creatinine Ratio 18.5 (6-22) Glucose 117 H (70-100) mg/dL Lactate 0.8 (0.7-2.1) mmol/L Calcium 7.0 L (8.4-10.2) mg/dL Magnesium (1.6-2.3) mg/dL Total Bilirubin 0.3 (0.2-1.3) mg/dL AST 136 H (14-36) IU/L ALT 112 H (<35) IU/L Alkaline Phosphatase 121 (38-126) U/L Total Creatine Kinase (30-135) U/L CK-MB (CK-2) CK-MB (CK-2) Rel Index Troponin I (0.01-0.034) ng/mL NT-Pro-B Natriuret Pep (<125) pg/mL Total Protein 5.1 L (6.3-8.2) g/dL Albumin 2.8 L (3.5-5.0) g/dL Globulin 2.3 (1.7-4.1) g/dL Albumin/Globulin Ratio 1.2 (1.0-2.8) Lipase 62 (23-300) U/L Procalcitonin 0.12 (<0.5) ng/mL Urine Color Urine Appearance Urine pH (4.5-8.0) Ur Specific [place] (1.000-1.035) Urine Protein (Negative) Urine Glucose (UA) (Negative) g/dL Urine Ketones (NEGATIVE) Urine Occult Blood (Negative) Urine Nitrate (Negative) Urine Bilirubin (NEGATIVE) Urine Urobilinogen (0.2) E.U./dL Ur Leukocyte Esterase (NEGATIVE) Urine RBC (0-5/HPF) Urine WBC (0-5/HPF) Amorphous Sediment Urine Bacteria (None) Ur Culture Indicated? U Opiates 300ng/mL cut (Negative) Ur Oxycodone Screen (Negative) Urine Methadone Screen (Negative) Ur Barbiturates Screen (Negative) U Tricyclic Antidepress (Negative) Ur Phencyclidine Scrn (Negative) Ur Amphetamines Screen (Negative) U Methamphetamines Scrn (Negative) Ur MDMA Scrn (Ecstasy) (Negative) U Benzodiazepines Scrn (Negative) Urine Cocaine Screen (Negative) U Marijuana (THC) Screen (Negative) Ethyl Alcohol ( - 10) mg/dL SARS-CoV-2 (PCR) (Negative) Influenza A (RT-PCR) (NEGATIVE) Influenza B (RT-PCR) (NEGATIVE) RSV (PCR) (Negative) 10/09/22 10/09/22 10/10/22 Range/Units 13:30 19:25 01:39 WBC (4.5-11.0) X10^3/uL RBC (4.0-5.2) X10^6/uL Hgb (12.0-16.0) g/dL Hct (36-46) % MCV (80-100) fL MCH (26-34) PG MCHC (30-36) % RDW (11.6-14.8) % Plt Count (150-400) X10^3/uL Neut % (Auto) (50-75) % Lymph % (Auto) (25-40) % [place] % (Auto) (3-14) % Eos % (Auto) (2-4) % Baso % (Auto) (0-2) % Neut # (Auto) (4993-1815) /uL Lymph # (Auto) (1726-5184) /uL [place] # (Auto) (0-900) /uL Eos # (Auto) (0-450) /uL Baso # (Auto) (0-100) /uL PT (10.1-12.7) SECONDS INR (0.9-1.3) APTT 50 H 50 H 43 H (26-36) SECONDS ABG pH (7.35-7.45) ABG pCO2 (35-45) mmHg ABG pO2 (80-100) mmHg ABG HCO3 (22-26) mmol/L ABG Total CO2 (21-31) mmol/L ABG O2 Saturation (95-100) % ABG Base Excess (-2-2) mmol/L FiO2 Sodium (137-145) mmol/L Potassium (3.4-5.1) mmol/L Chloride (98-107) mmol/L Carbon Dioxide (22-32) mmol/L BUN (7-17) mg/dL Creatinine (0.52-1.04) mg/dL Estimated GFR (>60) mL/min BUN/Creatinine Ratio (6-22) Glucose (70-100) mg/dL Lactate (0.7-2.1) mmol/L Calcium (8.4-10.2) mg/dL Magnesium (1.6-2.3) mg/dL Total Bilirubin (0.2-1.3) mg/dL AST (14-36) IU/L ALT (<35) IU/L Alkaline Phosphatase (38-126) U/L Total Creatine Kinase (30-135) U/L CK-MB (CK-2) CK-MB (CK-2) Rel Index Troponin I (0.01-0.034) ng/mL NT-Pro-B Natriuret Pep (<125) pg/mL Total Protein (6.3-8.2) g/dL Albumin (3.5-5.0) g/dL Globulin (1.7-4.1) g/dL Albumin/Globulin Ratio (1.0-2.8) Lipase (23-300) U/L Procalcitonin (<0.5) ng/mL Urine Color Urine Appearance Urine pH (4.5-8.0) Ur Specific [place] (1.000-1.035) Urine Protein (Negative) Urine Glucose (UA) (Negative) g/dL Urine Ketones (NEGATIVE) Urine Occult Blood (Negative) Urine Nitrate (Negative) Urine Bilirubin (NEGATIVE) Urine Urobilinogen (0.2) E.U./dL Ur Leukocyte Esterase (NEGATIVE) Urine RBC (0-5/HPF) Urine WBC (0-5/HPF) Amorphous Sediment Urine Bacteria (None) Ur Culture Indicated? U Opiates 300ng/mL cut (Negative) Ur Oxycodone Screen (Negative) Urine Methadone Screen (Negative) Ur Barbiturates Screen (Negative) U Tricyclic Antidepress (Negative) Ur Phencyclidine Scrn (Negative) Ur Amphetamines Screen (Negative) U Methamphetamines Scrn (Negative) Ur MDMA Scrn (Ecstasy) (Negative) U Benzodiazepines Scrn (Negative) Urine Cocaine Screen (Negative) U Marijuana (THC) Screen (Negative) Ethyl Alcohol ( - 10) mg/dL SARS-CoV-2 (PCR) (Negative) Influenza A (RT-PCR) (NEGATIVE) Influenza B (RT-PCR) (NEGATIVE) RSV (PCR) (Negative) 10/10/22 10/10/22 10/10/22 Range/Units 06:20 06:20 06:20 WBC 4.1 L (4.5-11.0) X10^3/uL RBC 3.59 L (4.0-5.2) X10^6/uL Hgb 9.9 L (12.0-16.0) g/dL Hct 30.4 L (36-46) % MCV 84.7 (80-100) fL MCH 27.5 (26-34) PG MCHC 32.5 (30-36) % RDW 18.8 H (11.6-14.8) % Plt Count 114 L (150-400) X10^3/uL Neut % (Auto) 59.3 (50-75) % Lymph % (Auto) 32.2 (25-40) % [place] % (Auto) 7.7 (3-14) % Eos % (Auto) 0.2 L (2-4) % Baso % (Auto) 0.6 (0-2) % Neut # (Auto) 2400 (0655-4146) /uL Lymph # (Auto) 1300 (7675-7349) /uL [place] # (Auto) 300 (0-900) /uL Eos # (Auto) 0 (0-450) /uL Baso # (Auto) 0 (0-100) /uL PT (10.1-12.7) SECONDS INR (0.9-1.3) APTT 44 H (26-36) SECONDS ABG pH (7.35-7.45) ABG pCO2 (35-45) mmHg ABG pO2 (80-100) mmHg ABG HCO3 (22-26) mmol/L ABG Total CO2 (21-31) mmol/L ABG O2 Saturation (95-100) % ABG Base Excess (-2-2) mmol/L FiO2 Sodium 138 (137-145) mmol/L Potassium 3.3 L (3.4-5.1) mmol/L Chloride 105 (98-107) mmol/L Carbon Dioxide 31 (22-32) mmol/L BUN 7 (7-17) mg/dL Creatinine 0.58 (0.52-1.04) mg/dL Estimated GFR > 60 (>60) mL/min BUN/Creatinine Ratio 12.1 (6-22) Glucose 97 (70-100) mg/dL Lactate (0.7-2.1) mmol/L Calcium 7.6 L (8.4-10.2) mg/dL Magnesium (1.6-2.3) mg/dL Total Bilirubin 0.3 (0.2-1.3) mg/dL AST 202 H (14-36) IU/L ALT 260 H (<35) IU/L Alkaline Phosphatase 114 (38-126) U/L Total Creatine Kinase (30-135) U/L CK-MB (CK-2) CK-MB (CK-2) Rel Index Troponin I 1.600 H* (0.01-0.034) ng/mL NT-Pro-B Natriuret Pep 1530 H (<125) pg/mL Total Protein 5.1 L (6.3-8.2) g/dL Albumin 2.8 L (3.5-5.0) g/dL Globulin 2.3 (1.7-4.1) g/dL Albumin/Globulin Ratio 1.2 (1.0-2.8) Lipase (23-300) U/L Procalcitonin (<0.5) ng/mL Urine Color Urine Appearance Urine pH (4.5-8.0) Ur Specific [place] (1.000-1.035) Urine Protein (Negative) Urine Glucose (UA) (Negative) g/dL Urine Ketones (NEGATIVE) Urine Occult Blood (Negative) Urine Nitrate (Negative) Urine Bilirubin (NEGATIVE) Urine Urobilinogen (0.2) E.U./dL Ur Leukocyte Esterase (NEGATIVE) Urine RBC (0-5/HPF) Urine WBC (0-5/HPF) Amorphous Sediment Urine Bacteria (None) Ur Culture Indicated? U Opiates 300ng/mL cut (Negative) Ur Oxycodone Screen (Negative) Urine Methadone Screen (Negative) Ur Barbiturates Screen (Negative) U Tricyclic Antidepress (Negative) Ur Phencyclidine Scrn (Negative) Ur Amphetamines Screen (Negative) U Methamphetamines Scrn (Negative) Ur MDMA Scrn (Ecstasy) (Negative) U Benzodiazepines Scrn (Negative) Urine Cocaine Screen (Negative) U Marijuana (THC) Screen (Negative) Ethyl Alcohol ( - 10) mg/dL SARS-CoV-2 (PCR) (Negative) Influenza A (RT-PCR) (NEGATIVE) Influenza B (RT-PCR) (NEGATIVE) RSV (PCR) (Negative) 10/10/22 10/10/22 10/10/22 Range/Units 12:16 12:16 18:29 WBC (4.5-11.0) X10^3/uL RBC (4.0-5.2) X10^6/uL Hgb (12.0-16.0) g/dL Hct (36-46) % MCV (80-100) fL MCH (26-34) PG MCHC (30-36) % RDW (11.6-14.8) % Plt Count (150-400) X10^3/uL Neut % (Auto) (50-75) % Lymph % (Auto) (25-40) % [place] % (Auto) (3-14) % Eos % (Auto) (2-4) % Baso % (Auto) (0-2) % Neut # (Auto) (7150-7323) /uL Lymph # (Auto) (3759-5891) /uL [place] # (Auto) (0-900) /uL Eos # (Auto) (0-450) /uL Baso # (Auto) (0-100) /uL PT (10.1-12.7) SECONDS INR (0.9-1.3) APTT 46 H 46 H (26-36) SECONDS ABG pH (7.35-7.45) ABG pCO2 (35-45) mmHg ABG pO2 (80-100) mmHg ABG HCO3 (22-26) mmol/L ABG Total CO2 (21-31) mmol/L ABG O2 Saturation (95-100) % ABG Base Excess (-2-2) mmol/L FiO2 Sodium (137-145) mmol/L Potassium (3.4-5.1) mmol/L Chloride (98-107) mmol/L Carbon Dioxide (22-32) mmol/L BUN (7-17) mg/dL Creatinine (0.52-1.04) mg/dL Estimated GFR (>60) mL/min BUN/Creatinine Ratio (6-22) Glucose (70-100) mg/dL Lactate (0.7-2.1) mmol/L Calcium (8.4-10.2) mg/dL Magnesium 1.5 L (1.6-2.3) mg/dL Total Bilirubin (0.2-1.3) mg/dL AST (14-36) IU/L ALT (<35) IU/L Alkaline Phosphatase (38-126) U/L Total Creatine Kinase (30-135) U/L CK-MB (CK-2) CK-MB (CK-2) Rel Index Troponin I (0.01-0.034) ng/mL NT-Pro-B Natriuret Pep (<125) pg/mL Total Protein (6.3-8.2) g/dL Albumin (3.5-5.0) g/dL Globulin (1.7-4.1) g/dL Albumin/Globulin Ratio (1.0-2.8) Lipase (23-300) U/L Procalcitonin (<0.5) ng/mL Urine Color Urine Appearance Urine pH (4.5-8.0) Ur Specific [place] (1.000-1.035) Urine Protein (Negative) Urine Glucose (UA) (Negative) g/dL Urine Ketones (NEGATIVE) Urine Occult Blood (Negative) Urine Nitrate (Negative) Urine Bilirubin (NEGATIVE) Urine Urobilinogen (0.2) E.U./dL Ur Leukocyte Esterase (NEGATIVE) Urine RBC (0-5/HPF) Urine WBC (0-5/HPF) Amorphous Sediment Urine Bacteria (None) Ur Culture Indicated? U Opiates 300ng/mL cut (Negative) Ur Oxycodone Screen (Negative) Urine Methadone Screen (Negative) Ur Barbiturates Screen (Negative) U Tricyclic Antidepress (Negative) Ur Phencyclidine Scrn (Negative) Ur Amphetamines Screen (Negative) U Methamphetamines Scrn (Negative) Ur MDMA Scrn (Ecstasy) (Negative) U Benzodiazepines Scrn (Negative) Urine Cocaine Screen (Negative) U Marijuana (THC) Screen (Negative) Ethyl Alcohol ( - 10) mg/dL SARS-CoV-2 (PCR) (Negative) Influenza A (RT-PCR) (NEGATIVE) Influenza B (RT-PCR) (NEGATIVE) RSV (PCR) (Negative) 10/11/22 10/11/22 10/11/22 Range/Units 01:00 06:07 06:07 WBC 3.9 L (4.5-11.0) X10^3/uL RBC 3.07 L (4.0-5.2) X10^6/uL Hgb 8.6 L (12.0-16.0) g/dL Hct 25.8 L (36-46) % MCV 84.3 (80-100) fL MCH 28.2 (26-34) PG MCHC 33.4 (30-36) % RDW 18.2 H (11.6-14.8) % Plt Count 105 L (150-400) X10^3/uL Neut % (Auto) 57.5 (50-75) % Lymph % (Auto) 32.9 (25-40) % [place] % (Auto) 9.2 (3-14) % Eos % (Auto) 0.2 L (2-4) % Baso % (Auto) 0.2 (0-2) % Neut # (Auto) 2200 (1906-3170) /uL Lymph # (Auto) 1300 (3083-9865) /uL [place] # (Auto) 400 (0-900) /uL Eos # (Auto) 0 (0-450) /uL Baso # (Auto) 0 (0-100) /uL PT (10.1-12.7) SECONDS INR (0.9-1.3) APTT 55 H D (26-36) SECONDS ABG pH (7.35-7.45) ABG pCO2 (35-45) mmHg ABG pO2 (80-100) mmHg ABG HCO3 (22-26) mmol/L ABG Total CO2 (21-31) mmol/L ABG O2 Saturation (95-100) % ABG Base Excess (-2-2) mmol/L FiO2 Sodium 137 (137-145) mmol/L Potassium 3.3 L (3.4-5.1) mmol/L Chloride 112 H (98-107) mmol/L Carbon Dioxide 24 (22-32) mmol/L BUN 4 L (7-17) mg/dL Creatinine 0.48 L (0.52-1.04) mg/dL Estimated GFR > 60 (>60) mL/min BUN/Creatinine Ratio 8.3 (6-22) Glucose 84 (70-100) mg/dL Lactate (0.7-2.1) mmol/L Calcium 6.5 L (8.4-10.2) mg/dL Magnesium (1.6-2.3) mg/dL Total Bilirubin 0.2 (0.2-1.3) mg/dL AST 96 H (14-36) IU/L ALT 210 H (<35) IU/L Alkaline Phosphatase 93 (38-126) U/L Total Creatine Kinase (30-135) U/L CK-MB (CK-2) CK-MB (CK-2) Rel Index Troponin I 0.857 H* (0.01-0.034) ng/mL NT-Pro-B Natriuret Pep (<125) pg/mL Total Protein 4.4 L (6.3-8.2) g/dL Albumin 2.3 L (3.5-5.0) g/dL Globulin 2.1 (1.7-4.1) g/dL Albumin/Globulin Ratio 1.1 (1.0-2.8) Lipase (23-300) U/L Procalcitonin (<0.5) ng/mL Urine Color Urine Appearance Urine pH (4.5-8.0) Ur Specific [place] (1.000-1.035) Urine Protein (Negative) Urine Glucose (UA) (Negative) g/dL Urine Ketones (NEGATIVE) Urine Occult Blood (Negative) Urine Nitrate (Negative) Urine Bilirubin (NEGATIVE) Urine Urobilinogen (0.2) E.U./dL Ur Leukocyte Esterase (NEGATIVE) Urine RBC (0-5/HPF) Urine WBC (0-5/HPF) Amorphous Sediment Urine Bacteria (None) Ur Culture Indicated? U Opiates 300ng/mL cut (Negative) Ur Oxycodone Screen (Negative) Urine Methadone Screen (Negative) Ur Barbiturates Screen (Negative) U Tricyclic Antidepress (Negative) Ur Phencyclidine Scrn (Negative) Ur Amphetamines Screen (Negative) U Methamphetamines Scrn (Negative) Ur MDMA Scrn (Ecstasy) (Negative) U Benzodiazepines Scrn (Negative) Urine Cocaine Screen (Negative) U Marijuana (THC) Screen (Negative) Ethyl Alcohol ( - 10) mg/dL SARS-CoV-2 (PCR) (Negative) Influenza A (RT-PCR) (NEGATIVE) Influenza B (RT-PCR) (NEGATIVE) RSV (PCR) (Negative) 10/11/22 10/11/22 Range/Units 17:44 17:44 WBC 4.5 (4.5-11.0) X10^3/uL RBC 3.65 L (4.0-5.2) X10^6/uL Hgb 10.1 L (12.0-16.0) g/dL Hct 30.8 L (36-46) % MCV 84.4 (80-100) fL MCH 27.7 (26-34) PG MCHC 32.9 (30-36) % RDW 18.4 H (11.6-14.8) % Plt Count 128 L (150-400) X10^3/uL Neut % (Auto) 67.2 (50-75) % Lymph % (Auto) 22.9 L (25-40) % [place] % (Auto) 9.0 (3-14) % Eos % (Auto) 0.3 L (2-4) % Baso % (Auto) 0.6 (0-2) % Neut # (Auto) 3000 (2609-5180) /uL Lymph # (Auto) 1000 L (8121-6365) /uL [place] # (Auto) 400 (0-900) /uL Eos # (Auto) 0 (0-450) /uL Baso # (Auto) 0 (0-100) /uL PT (10.1-12.7) SECONDS INR (0.9-1.3) APTT (26-36) SECONDS ABG pH (7.35-7.45) ABG pCO2 (35-45) mmHg ABG pO2 (80-100) mmHg ABG HCO3 (22-26) mmol/L ABG Total CO2 (21-31) mmol/L ABG O2 Saturation (95-100) % ABG Base Excess (-2-2) mmol/L FiO2 Sodium 138 (137-145) mmol/L Potassium 4.4 (3.4-5.1) mmol/L Chloride 106 (98-107) mmol/L Carbon Dioxide 29 (22-32) mmol/L BUN 5 L (7-17) mg/dL Creatinine 0.60 (0.52-1.04) mg/dL Estimated GFR > 60 (>60) mL/min BUN/Creatinine Ratio 8.3 (6-22) Glucose 90 (70-100) mg/dL Lactate (0.7-2.1) mmol/L Calcium 8.0 L (8.4-10.2) mg/dL Magnesium 1.9 (1.6-2.3) mg/dL Total Bilirubin 0.3 (0.2-1.3) mg/dL AST 76 H (14-36) IU/L ALT 231 H (<35) IU/L Alkaline Phosphatase 120 (38-126) U/L Total Creatine Kinase (30-135) U/L CK-MB (CK-2) CK-MB (CK-2) Rel Index Troponin I (0.01-0.034) ng/mL NT-Pro-B Natriuret Pep (<125) pg/mL Total Protein 5.5 L (6.3-8.2) g/dL Albumin 3.1 L (3.5-5.0) g/dL Globulin 2.4 (1.7-4.1) g/dL Albumin/Globulin Ratio 1.3 (1.0-2.8) Lipase (23-300) U/L Procalcitonin (<0.5) ng/mL Urine Color Urine Appearance Urine pH (4.5-8.0) Ur Specific [place] (1.000-1.035) Urine Protein (Negative) Urine Glucose (UA) (Negative) g/dL Urine Ketones (NEGATIVE) Urine Occult Blood (Negative) Urine Nitrate (Negative) Urine Bilirubin (NEGATIVE) Urine Urobilinogen (0.2) E.U./dL Ur Leukocyte Esterase (NEGATIVE) Urine RBC (0-5/HPF) Urine WBC (0-5/HPF) Amorphous Sediment Urine Bacteria (None) Ur Culture Indicated? U Opiates 300ng/mL cut (Negative) Ur Oxycodone Screen (Negative) Urine Methadone Screen (Negative) Ur Barbiturates Screen (Negative) U Tricyclic Antidepress (Negative) Ur Phencyclidine Scrn (Negative) Ur Amphetamines Screen (Negative) U Methamphetamines Scrn (Negative) Ur MDMA Scrn (Ecstasy) (Negative) U Benzodiazepines Scrn (Negative) Urine Cocaine Screen (Negative) U Marijuana (THC) Screen (Negative) Ethyl Alcohol ( - 10) mg/dL SARS-CoV-2 (PCR) (Negative) Influenza A (RT-PCR) (NEGATIVE) Influenza B (RT-PCR) (NEGATIVE) RSV (PCR) (Negative) Point of Care Testing Stool Occult Blood Negative MDM Narrative Medical decision making narrative: This is a 57-year-old female who presented with possible flu-like symptoms patient had a cardiac arrest in the waiting room. Patient had approximately 10 minutes of CPR total, she received 1 mg of epi, amiodarone 300 mg apand pear to be in VFib she was defibrillated and cardioverted to AFib which ultimately became a sinus rhythm. Patient had almost immediate regain of pulses and within several minutes was conversant. Initial labs show low calcium, potassium is relatively normal she is had issues in the past. She appeared to be in VFib arrest, she responded well to diff fibrillation converted to AFib and is now conversant. Patient is able to give history, she also received epi 1 mg, amiodarone 300 mg continuing with 6 hour infusion. Patient has been persistently hypotensive initially was started norepinephrine but after conversation with Cardiology they recommend phenylephrine and changed over and p atient has responded well maintaining a map greater than 65 but has had a systolic often in the 100 range. Patient received fluids she did not appear significantly fluid overloaded but is high risk. Her labs and imaging showed some mild electrolyte abnormalities with potassium of 3.3, calcium was also low, magnesium is technically normal but was recommended goals of potassium of greater than 4 and 2 for magnesium. Patient's ABG post CPR is essentially normal. Patient does not have any renal dysfunction, no significant anemia, normal LFTs otherwise, troponin on repeat did trend upwards but this could very easily be from cardiac shock and CPR will continue to trend. CTA shows pulmonary artery hypertension possibly from enlarged main pulmonary artery, no PE or other clear cause CT abdomen pelvis also does not show a clear cause for her cardiac arrest today, she has multiple rib fractures from her CPR. Patient has had some pain she responds well to fentanyl. She has been oxygenating appropriately but has been on 2 L. patient's urine shows possible infection so she was covered with an antibiotic. Had multiple consultations with Cardiology through [facility] as well as Dr. Benavides at [facility]. No bed availability continuing to seek placement with [facility] cc through regional hotline. Dr. Bazan from Cardiology called back her stat echo shows a decrease in her EF to 35 % which is new from her priors as well as focal wall motion abnormalities he does recommend continue with aspirin, high-dose statin, heparin and needs transfer for cardiac catheterization in ICD placement. Patient signed out to Dr. Garcia select 11/14, patient has repeat labs pending this evening, plan to continue amiodarone, monitor electrolytes, phenylephrine and attempting to transfer. Radha-patient signed out to me by Dr. Price. He was seen evaluated patient myself she. Sh presently awake alert and pleasant. She has no complaints. She actually did have a nonsustained run of V. She continues on amiodarone drip. Awaiting placement is. Troponin continues to rise. She is still requiring a touch of vasopressor to help with blood pressure support. EF 35-40%. Once IV amiodarone is done will likely need p.o. amiodarone. Significant bed critical shortage she is on multiple wait list and [facility] has been notified. <Akshat Mercado, - Last Filed: 10/10/22 18:52> Lab Data Labs: Lab Results 10/08/22 10/08/22 10/08/22 Range/Units 10:03 10:11 10:11 WBC 4.6 (4.5-11.0) X10^3/uL RBC 4.21 (4.0-5.2) X10^6/uL Hgb 11.7 L (12.0-16.0) g/dL Hct 35.9 L (36-46) % MCV 85.3 (80-100) fL MCH 27.7 (26-34) PG MCHC 32.5 (30-36) % RDW 19.3 H (11.6-14.8) % Plt Count 182 (150-400) X10^3/uL Neut % (Auto) 69.7 (50-75) % Lymph % (Auto) 22.1 L (25-40) % [place] % (Auto) 7.9 (3-14) % Eos % (Auto) 0.1 L (2-4) % Baso % (Auto) 0.2 (0-2) % Neut # (Auto) 3200 (8580-2595) /uL Lymph # (Auto) 1000 L (2736-4076) /uL [place] # (Auto) 400 (0-900) /uL Eos # (Auto) 0 (0-450) /uL Baso # (Auto) 0 (0-100) /uL PT (10.1-12.7) SECONDS INR (0.9-1.3) APTT (26-36) SECONDS ABG pH (7.35-7.45) ABG pCO2 (35-45) mmHg ABG pO2 (80-100) mmHg ABG HCO3 (22-26) mmol/L ABG Total CO2 (21-31) mmol/L ABG O2 Saturation (95-100) % ABG Base Excess (-2-2) mmol/L FiO2 Sodium 143 (137-145) mmol/L Potassium 3.3 L (3.4-5.1) mmol/L Chloride 104 (98-107) mmol/L Carbon Dioxide 34 H (22-32) mmol/L BUN 12 (7-17) mg/dL Creatinine 0.60 (0.52-1.04) mg/dL Estimated GFR > 60 (>60) mL/min BUN/Creatinine Ratio 20.0 (6-22) Glucose 95 (70-100) mg/dL Lactate (0.7-2.1) mmol/L Calcium 7.9 L (8.4-10.2) mg/dL Magnesium (1.6-2.3) mg/dL Total Bilirubin 0.3 (0.2-1.3) mg/dL AST 18 (14-36) IU/L ALT 15 (<35) IU/L Alkaline Phosphatase 104 (38-126) U/L Total Creatine Kinase (30-135) U/L CK-MB (CK-2) CK-MB (CK-2) Rel Index Troponin I (0.01-0.034) ng/mL NT-Pro-B Natriuret Pep (<125) pg/mL Total Protein 6.4 (6.3-8.2) g/dL Albumin 3.5 (3.5-5.0) g/dL Globulin 2.9 (1.7-4.1) g/dL Albumin/Globulin Ratio 1.2 (1.0-2.8) Lipase 45 (23-300) U/L Procalcitonin < 0.03 (<0.5) ng/mL Urine Color Urine Appearance Urine pH (4.5-8.0) Ur Specific [place] (1.000-1.035) Urine Protein (Negative) Urine Glucose (UA) (Negative) g/dL Urine Ketones (NEGATIVE) Urine Occult Blood (Negative) Urine Nitrate (Negative) Urine Bilirubin (NEGATIVE) Urine Urobilinogen (0.2) E.U./dL Ur Leukocyte Esterase (NEGATIVE) Urine RBC (0-5/HPF) Urine WBC (0-5/HPF) Amorphous Sediment Urine Bacteria (None) Ur Culture Indicated? U Opiates 300ng/mL cut (Negative) Ur Oxycodone Screen (Negative) Urine Methadone Screen (Negative) Ur Barbiturates Screen (Negative) U Tricyclic Antidepress (Negative) Ur Phencyclidine Scrn (Negative) Ur Amphetamines Screen (Negative) U Methamphetamines Scrn (Negative) Ur MDMA Scrn (Ecstasy) (Negative) U Benzodiazepines Scrn (Negative) Urine Cocaine Screen (Negative) U Marijuana (THC) Screen (Negative) Ethyl Alcohol ( - 10) mg/dL SARS-CoV-2 (PCR) Negative (Negative) Influenza A (RT-PCR) Flu a negative (NEGATIVE) Influenza B (RT-PCR) Flu b negative (NEGATIVE) RSV (PCR) Negative (Negative) 10/08/22 10/08/22 10/08/22 Range/Units 10:11 10:11 10:11 WBC (4.5-11.0) X10^3/uL RBC (4.0-5.2) X10^6/uL Hgb (12.0-16.0) g/dL Hct (36-46) % MCV (80-100) fL MCH (26-34) PG MCHC (30-36) % RDW (11.6-14.8) % Plt Count (150-400) X10^3/uL Neut % (Auto) (50-75) % Lymph % (Auto) (25-40) % [place] % (Auto) (3-14) % Eos % (Auto) (2-4) % Baso % (Auto) (0-2) % Neut # (Auto) (8179-4986) /uL Lymph # (Auto) (1591-9287) /uL [place] # (Auto) (0-900) /uL Eos # (Auto) (0-450) /uL Baso # (Auto) (0-100) /uL PT 11.3 (10.1-12.7) SECONDS INR 1.0 (0.9-1.3) APTT 29 (26-36) SECONDS ABG pH (7.35-7.45) ABG pCO2 (35-45) mmHg ABG pO2 (80-100) mmHg ABG HCO3 (22-26) mmol/L ABG Total CO2 (21-31) mmol/L ABG O2 Saturation (95-100) % ABG Base Excess (-2-2) mmol/L FiO2 Sodium (137-145) mmol/L Potassium (3.4-5.1) mmol/L Chloride (98-107) mmol/L Carbon Dioxide (22-32) mmol/L BUN (7-17) mg/dL Creatinine (0.52-1.04) mg/dL Estimated GFR (>60) mL/min BUN/Creatinine Ratio (6-22) Glucose (70-100) mg/dL Lactate 1.0 (0.7-2.1) mmol/L Calcium (8.4-10.2) mg/dL Magnesium (1.6-2.3) mg/dL Total Bilirubin (0.2-1.3) mg/dL AST (14-36) IU/L ALT (<35) IU/L Alkaline Phosphatase (38-126) U/L Total Creatine Kinase 32 (30-135) U/L CK-MB (CK-2) TNP CK-MB (CK-2) Rel Index TNP Troponin I < 0.012 (0.01-0.034) ng/mL NT-Pro-B Natriuret Pep 240 H (<125) pg/mL Total Protein (6.3-8.2) g/dL Albumin (3.5-5.0) g/dL Globulin (1.7-4.1) g/dL Albumin/Globulin Ratio (1.0-2.8) Lipase (23-300) U/L Procalcitonin (<0.5) ng/mL Urine Color Urine Appearance Urine pH (4.5-8.0) Ur Specific [place] (1.000-1.035) Urine Protein (Negative) Urine Glucose (UA) (Negative) g/dL Urine Ketones (NEGATIVE) Urine Occult Blood (Negative) Urine Nitrate (Negative) Urine Bilirubin (NEGATIVE) Urine Urobilinogen (0.2) E.U./dL Ur Leukocyte Esterase (NEGATIVE) Urine RBC (0-5/HPF) Urine WBC (0-5/HPF) Amorphous Sediment Urine Bacteria (None) Ur Culture Indicated? U Opiates 300ng/mL cut (Negative) Ur Oxycodone Screen (Negative) Urine Methadone Screen (Negative) Ur Barbiturates Screen (Negative) U Tricyclic Antidepress (Negative) Ur Phencyclidine Scrn (Negative) Ur Amphetamines Screen (Negative) U Methamphetamines Scrn (Negative) Ur MDMA Scrn (Ecstasy) (Negative) U Benzodiazepines Scrn (Negative) Urine Cocaine Screen (Negative) U Marijuana (THC) Screen (Negative) Ethyl Alcohol ( - 10) mg/dL SARS-CoV-2 (PCR) (Negative) Influenza A (RT-PCR) (NEGATIVE) Influenza B (RT-PCR) (NEGATIVE) RSV (PCR) (Negative) 10/08/22 10/08/22 10/08/22 Range/Units 10:11 10:43 12:50 WBC (4.5-11.0) X10^3/uL RBC (4.0-5.2) X10^6/uL Hgb (12.0-16.0) g/dL Hct (36-46) % MCV (80-100) fL MCH (26-34) PG MCHC (30-36) % RDW (11.6-14.8) % Plt Count (150-400) X10^3/uL Neut % (Auto) (50-75) % Lymph % (Auto) (25-40) % [place] % (Auto) (3-14) % Eos % (Auto) (2-4) % Baso % (Auto) (0-2) % Neut # (Auto) (5950-3506) /uL Lymph # (Auto) (6228-7941) /uL [place] # (Auto) (0-900) /uL Eos # (Auto) (0-450) /uL Baso # (Auto) (0-100) /uL PT (10.1-12.7) SECONDS INR (0.9-1.3) APTT (26-36) SECONDS ABG pH 7.40 (7.35-7.45) ABG pCO2 37.3 (35-45) mmHg ABG pO2 144 H (80-100) mmHg ABG HCO3 23 (22-26) mmol/L ABG Total CO2 24 (21-31) mmol/L ABG O2 Saturation 99 (95-100) % ABG Base Excess -2.0 (-2-2) mmol/L FiO2 80 Sodium (137-145) mmol/L Potassium (3.4-5.1) mmol/L Chloride (98-107) mmol/L Carbon Dioxide (22-32) mmol/L BUN (7-17) mg/dL Creatinine (0.52-1.04) mg/dL Estimated GFR (>60) mL/min BUN/Creatinine Ratio (6-22) Glucose (70-100) mg/dL Lactate 1.4 (0.7-2.1) mmol/L Calcium (8.4-10.2) mg/dL Magnesium 1.8 (1.6-2.3) mg/dL Total Bilirubin (0.2-1.3) mg/dL AST (14-36) IU/L ALT (<35) IU/L Alkaline Phosphatase (38-126) U/L Total Creatine Kinase (30-135) U/L CK-MB (CK-2) CK-MB (CK-2) Rel Index Troponin I (0.01-0.034) ng/mL NT-Pro-B Natriuret Pep (<125) pg/mL Total Protein (6.3-8.2) g/dL Albumin (3.5-5.0) g/dL Globulin (1.7-4.1) g/dL Albumin/Globulin Ratio (1.0-2.8) Lipase (23-300) U/L Procalcitonin (<0.5) ng/mL Urine Color Urine Appearance Urine pH (4.5-8.0) Ur Specific [place] (1.000-1.035) Urine Protein (Negative) Urine Glucose (UA) (Negative) g/dL Urine Ketones (NEGATIVE) Urine Occult Blood (Negative) Urine Nitrate (Negative) Urine Bilirubin (NEGATIVE) Urine Urobilinogen (0.2) E.U./dL Ur Leukocyte Esterase (NEGATIVE) Urine RBC (0-5/HPF) Urine WBC (0-5/HPF) Amorphous Sediment Urine Bacteria (None) Ur Culture Indicated? U Opiates 300ng/mL cut (Negative) Ur Oxycodone Screen (Negative) Urine Methadone Screen (Negative) Ur Barbiturates Screen (Negative) U Tricyclic Antidepress (Negative) Ur Phencyclidine Scrn (Negative) Ur Amphetamines Screen (Negative) U Methamphetamines Scrn (Negative) Ur MDMA Scrn (Ecstasy) (Negative) U Benzodiazepines Scrn (Negative) Urine Cocaine Screen (Negative) U Marijuana (THC) Screen (Negative) Ethyl Alcohol ( - 10) mg/dL SARS-CoV-2 (PCR) (Negative) Influenza A (RT-PCR) (NEGATIVE) Influenza B (RT-PCR) (NEGATIVE) RSV (PCR) (Negative) 10/08/22 10/08/22 10/08/22 Range/Units 12:50 12:50 12:50 WBC (4.5-11.0) X10^3/uL RBC (4.0-5.2) X10^6/uL Hgb (12.0-16.0) g/dL Hct (36-46) % MCV (80-100) fL MCH (26-34) PG MCHC (30-36) % RDW (11.6-14.8) % Plt Count (150-400) X10^3/uL Neut % (Auto) (50-75) % Lymph % (Auto) (25-40) % [place] % (Auto) (3-14) % Eos % (Auto) (2-4) % Baso % (Auto) (0-2) % Neut # (Auto) (6931-1679) /uL Lymph # (Auto) (5658-8687) /uL [place] # (Auto) (0-900) /uL Eos # (Auto) (0-450) /uL Baso # (Auto) (0-100) /uL PT (10.1-12.7) SECONDS INR (0.9-1.3) APTT (26-36) SECONDS ABG pH (7.35-7.45) ABG pCO2 (35-45) mmHg ABG pO2 (80-100) mmHg ABG HCO3 (22-26) mmol/L ABG Total CO2 (21-31) mmol/L ABG O2 Saturation (95-100) % ABG Base Excess (-2-2) mmol/L FiO2 Sodium (137-145) mmol/L Potassium (3.4-5.1) mmol/L Chloride (98-107) mmol/L Carbon Dioxide (22-32) mmol/L BUN (7-17) mg/dL Creatinine (0.52-1.04) mg/dL Estimated GFR (>60) mL/min BUN/Creatinine Ratio (6-22) Glucose (70-100) mg/dL Lactate (0.7-2.1) mmol/L Calcium (8.4-10.2) mg/dL Magnesium (1.6-2.3) mg/dL Total Bilirubin (0.2-1.3) mg/dL AST (14-36) IU/L ALT (<35) IU/L Alkaline Phosphatase (38-126) U/L Total Creatine Kinase (30-135) U/L CK-MB (CK-2) CK-MB (CK-2) Rel Index Troponin I 0.552 H* (0.01-0.034) ng/mL NT-Pro-B Natriuret Pep (<125) pg/mL Total Protein (6.3-8.2) g/dL Albumin (3.5-5.0) g/dL Globulin (1.7-4.1) g/dL Albumin/Globulin Ratio (1.0-2.8) Lipase (23-300) U/L Procalcitonin (<0.5) ng/mL Urine Color Yellow Urine Appearance Sl cloudy Urine pH 8.0 (4.5-8.0) Ur Specific [place] 1.015 (1.000-1.035) Urine Protein 3+ H (Negative) Urine Glucose (UA) 1+ H (Negative) g/dL Urine Ketones Negative (NEGATIVE) Urine Occult Blood 3+ H (Negative) Urine Nitrate Negative (Negative) Urine Bilirubin Negative (NEGATIVE) Urine Urobilinogen 0.2 (0.2) E.U./dL Ur Leukocyte Esterase Trace H (NEGATIVE) Urine RBC >100/hpf H (0-5/HPF) Urine WBC 5-10/hpf H (0-5/HPF) Amorphous Sediment 2+ Urine Bacteria Occasional (0-1) (None) Ur Culture Indicated? Specimen cultured U Opiates 300ng/mL cut (Negative) Ur Oxycodone Screen (Negative) Urine Methadone Screen (Negative) Ur Barbiturates Screen (Negative) U Tricyclic Antidepress (Negative) Ur Phencyclidine Scrn (Negative) Ur Amphetamines Screen (Negative) U Methamphetamines Scrn (Negative) Ur MDMA Scrn (Ecstasy) (Negative) U Benzodiazepines Scrn (Negative) Urine Cocaine Screen (Negative) U Marijuana (THC) Screen (Negative) Ethyl Alcohol < 10 ( - 10) mg/dL SARS-CoV-2 (PCR) (Negative) Influenza A (RT-PCR) (NEGATIVE) Influenza B (RT-PCR) (NEGATIVE) RSV (PCR) (Negative) 10/08/22 10/08/22 10/08/22 Range/Units 12:50 19:05 19:05 WBC (4.5-11.0) X10^3/uL RBC (4.0-5.2) X10^6/uL Hgb (12.0-16.0) g/dL Hct (36-46) % MCV (80-100) fL MCH (26-34) PG MCHC (30-36) % RDW (11.6-14.8) % Plt Count (150-400) X10^3/uL Neut % (Auto) (50-75) % Lymph % (Auto) (25-40) % [place] % (Auto) (3-14) % Eos % (Auto) (2-4) % Baso % (Auto) (0-2) % Neut # (Auto) (7319-4459) /uL Lymph # (Auto) (5880-4170) /uL [place] # (Auto) (0-900) /uL Eos # (Auto) (0-450) /uL Baso # (Auto) (0-100) /uL PT (10.1-12.7) SECONDS INR (0.9-1.3) APTT 26 (26-36) SECONDS ABG pH (7.35-7.45) ABG pCO2 (35-45) mmHg ABG pO2 (80-100) mmHg ABG HCO3 (22-26) mmol/L ABG Total CO2 (21-31) mmol/L ABG O2 Saturation (95-100) % ABG Base Excess (-2-2) mmol/L FiO2 Sodium (137-145) mmol/L Potassium (3.4-5.1) mmol/L Chloride (98-107) mmol/L Carbon Dioxide (22-32) mmol/L BUN (7-17) mg/dL Creatinine (0.52-1.04) mg/dL Estimated GFR (>60) mL/min BUN/Creatinine Ratio (6-22) Glucose (70-100) mg/dL Lactate (0.7-2.1) mmol/L Calcium (8.4-10.2) mg/dL Magnesium (1.6-2.3) mg/dL Total Bilirubin (0.2-1.3) mg/dL AST (14-36) IU/L ALT (<35) IU/L Alkaline Phosphatase (38-126) U/L Total Creatine Kinase (30-135) U/L CK-MB (CK-2) CK-MB (CK-2) Rel Index Troponin I 2.070 H* (0.01-0.034) ng/mL NT-Pro-B Natriuret Pep (<125) pg/mL Total Protein (6.3-8.2) g/dL Albumin (3.5-5.0) g/dL Globulin (1.7-4.1) g/dL Albumin/Globulin Ratio (1.0-2.8) Lipase (23-300) U/L Procalcitonin (<0.5) ng/mL Urine Color Urine Appearance Urine pH (4.5-8.0) Ur Specific [place] (1.000-1.035) Urine Protein (Negative) Urine Glucose (UA) (Negative) g/dL Urine Ketones (NEGATIVE) Urine Occult Blood (Negative) Urine Nitrate (Negative) Urine Bilirubin (NEGATIVE) Urine Urobilinogen (0.2) E.U./dL Ur Leukocyte Esterase (NEGATIVE) Urine RBC (0-5/HPF) Urine WBC (0-5/HPF) Amorphous Sediment Urine Bacteria (None) Ur Culture Indicated? U Opiates 300ng/mL cut Negative (Negative) Ur Oxycodone Screen Negative (Negative) Urine Methadone Screen Negative (Negative) Ur Barbiturates Screen Negative (Negative) U Tricyclic Antidepress Negative (Negative) Ur Phencyclidine Scrn Negative (Negative) Ur Amphetamines Screen Negative (Negative) U Methamphetamines Scrn Negative (Negative) Ur MDMA Scrn (Ecstasy) Negative (Negative) U Benzodiazepines Scrn Negative (Negative) Urine Cocaine Screen Negative (Negative) U Marijuana (THC) Screen Negative (Negative) Ethyl Alcohol ( - 10) mg/dL SARS-CoV-2 (PCR) (Negative) Influenza A (RT-PCR) (NEGATIVE) Influenza B (RT-PCR) (NEGATIVE) RSV (PCR) (Negative) 10/08/22 10/09/22 10/09/22 Range/Units 19:05 00:30 00:30 WBC (4.5-11.0) X10^3/uL RBC (4.0-5.2) X10^6/uL Hgb (12.0-16.0) g/dL Hct (36-46) % MCV (80-100) fL MCH (26-34) PG MCHC (30-36) % RDW (11.6-14.8) % Plt Count (150-400) X10^3/uL Neut % (Auto) (50-75) % Lymph % (Auto) (25-40) % [place] % (Auto) (3-14) % Eos % (Auto) (2-4) % Baso % (Auto) (0-2) % Neut # (Auto) (3705-4185) /uL Lymph # (Auto) (9419-5025) /uL [place] # (Auto) (0-900) /uL Eos # (Auto) (0-450) /uL Baso # (Auto) (0-100) /uL PT (10.1-12.7) SECONDS INR (0.9-1.3) APTT 76 H* D (26-36) SECONDS ABG pH (7.35-7.45) ABG pCO2 (35-45) mmHg ABG pO2 (80-100) mmHg ABG HCO3 (22-26) mmol/L ABG Total CO2 (21-31) mmol/L ABG O2 Saturation (95-100) % ABG Base Excess (-2-2) mmol/L FiO2 Sodium 139 (137-145) mmol/L Potassium 4.7 D (3.4-5.1) mmol/L Chloride 108 H (98-107) mmol/L Carbon Dioxide 26 (22-32) mmol/L BUN 12 (7-17) mg/dL Creatinine 0.70 (0.52-1.04) mg/dL Estimated GFR > 60 (>60) mL/min BUN/Creatinine Ratio 17.1 (6-22) Glucose 174 H (70-100) mg/dL Lactate (0.7-2.1) mmol/L Calcium 7.0 L (8.4-10.2) mg/dL Magnesium 2.1 (1.6-2.3) mg/dL Total Bilirubin 0.3 (0.2-1.3) mg/dL AST 115 H (14-36) IU/L ALT 80 H (<35) IU/L Alkaline Phosphatase 124 (38-126) U/L Total Creatine Kinase (30-135) U/L CK-MB (CK-2) CK-MB (CK-2) Rel Index Troponin I 3.540 H* (0.01-0.034) ng/mL NT-Pro-B Natriuret Pep (<125) pg/mL Total Protein 5.4 L (6.3-8.2) g/dL Albumin 3.0 L (3.5-5.0) g/dL Globulin 2.4 (1.7-4.1) g/dL Albumin/Globulin Ratio 1.3 (1.0-2.8) Lipase (23-300) U/L Procalcitonin (<0.5) ng/mL Urine Color Urine Appearance Urine pH (4.5-8.0) Ur Specific [place] (1.000-1.035) Urine Protein (Negative) Urine Glucose (UA) (Negative) g/dL Urine Ketones (NEGATIVE) Urine Occult Blood (Negative) Urine Nitrate (Negative) Urine Bilirubin (NEGATIVE) Urine Urobilinogen (0.2) E.U./dL Ur Leukocyte Esterase (NEGATIVE) Urine RBC (0-5/HPF) Urine WBC (0-5/HPF) Amorphous Sediment Urine Bacteria (None) Ur Culture Indicated? U Opiates 300ng/mL cut (Negative) Ur Oxycodone Screen (Negative) Urine Methadone Screen (Negative) Ur Barbiturates Screen (Negative) U Tricyclic Antidepress (Negative) Ur Phencyclidine Scrn (Negative) Ur Amphetamines Screen (Negative) U Methamphetamines Scrn (Negative) Ur MDMA Scrn (Ecstasy) (Negative) U Benzodiazepines Scrn (Negative) Urine Cocaine Screen (Negative) U Marijuana (THC) Screen (Negative) Ethyl Alcohol ( - 10) mg/dL SARS-CoV-2 (PCR) (Negative) Influenza A (RT-PCR) (NEGATIVE) Influenza B (RT-PCR) (NEGATIVE) RSV (PCR) (Negative) 10/09/22 10/09/22 10/09/22 Range/Units 07:30 07:30 07:30 WBC 6.3 (4.5-11.0) X10^3/uL RBC 3.76 L (4.0-5.2) X10^6/uL Hgb 10.5 L (12.0-16.0) g/dL Hct 32.2 L (36-46) % MCV 85.5 (80-100) fL MCH 27.9 (26-34) PG MCHC 32.7 (30-36) % RDW 19.2 H (11.6-14.8) % Plt Count 136 L (150-400) X10^3/uL Neut % (Auto) 74.2 (50-75) % Lymph % (Auto) 19.0 L (25-40) % [place] % (Auto) 6.1 (3-14) % Eos % (Auto) 0.2 L (2-4) % Baso % (Auto) 0.5 (0-2) % Neut # (Auto) 4700 (5034-5055) /uL Lymph # (Auto) 1200 (9481-6302) /uL [place] # (Auto) 400 (0-900) /uL Eos # (Auto) 0 (0-450) /uL Baso # (Auto) 0 (0-100) /uL PT 14.3 H (10.1-12.7) SECONDS INR 1.2 (0.9-1.3) APTT (26-36) SECONDS ABG pH (7.35-7.45) ABG pCO2 (35-45) mmHg ABG pO2 (80-100) mmHg ABG HCO3 (22-26) mmol/L ABG Total CO2 (21-31) mmol/L ABG O2 Saturation (95-100) % ABG Base Excess (-2-2) mmol/L FiO2 Sodium (137-145) mmol/L Potassium (3.4-5.1) mmol/L Chloride (98-107) mmol/L Carbon Dioxide (22-32) mmol/L BUN (7-17) mg/dL Creatinine (0.52-1.04) mg/dL Estimated GFR (>60) mL/min BUN/Creatinine Ratio (6-22) Glucose (70-100) mg/dL Lactate (0.7-2.1) mmol/L Calcium (8.4-10.2) mg/dL Magnesium (1.6-2.3) mg/dL Total Bilirubin (0.2-1.3) mg/dL AST (14-36) IU/L ALT (<35) IU/L Alkaline Phosphatase (38-126) U/L Total Creatine Kinase (30-135) U/L CK-MB (CK-2) CK-MB (CK-2) Rel Index Troponin I 3.520 H* (0.01-0.034) ng/mL NT-Pro-B Natriuret Pep (<125) pg/mL Total Protein (6.3-8.2) g/dL Albumin (3.5-5.0) g/dL Globulin (1.7-4.1) g/dL Albumin/Globulin Ratio (1.0-2.8) Lipase (23-300) U/L Procalcitonin (<0.5) ng/mL Urine Color Urine Appearance Urine pH (4.5-8.0) Ur Specific [place] (1.000-1.035) Urine Protein (Negative) Urine Glucose (UA) (Negative) g/dL Urine Ketones (NEGATIVE) Urine Occult Blood (Negative) Urine Nitrate (Negative) Urine Bilirubin (NEGATIVE) Urine Urobilinogen (0.2) E.U./dL Ur Leukocyte Esterase (NEGATIVE) Urine RBC (0-5/HPF) Urine WBC (0-5/HPF) Amorphous Sediment Urine Bacteria (None) Ur Culture Indicated? U Opiates 300ng/mL cut (Negative) Ur Oxycodone Screen (Negative) Urine Methadone Screen (Negative) Ur Barbiturates Screen (Negative) U Tricyclic Antidepress (Negative) Ur Phencyclidine Scrn (Negative) Ur Amphetamines Screen (Negative) U Methamphetamines Scrn (Negative) Ur MDMA Scrn (Ecstasy) (Negative) U Benzodiazepines Scrn (Negative) Urine Cocaine Screen (Negative) U Marijuana (THC) Screen (Negative) Ethyl Alcohol ( - 10) mg/dL SARS-CoV-2 (PCR) (Negative) Influenza A (RT-PCR) (NEGATIVE) Influenza B (RT-PCR) (NEGATIVE) RSV (PCR) (Negative) 10/09/22 10/09/22 10/09/22 Range/Units 07:30 07:30 07:30 WBC (4.5-11.0) X10^3/uL RBC (4.0-5.2) X10^6/uL Hgb (12.0-16.0) g/dL Hct (36-46) % MCV (80-100) fL MCH (26-34) PG MCHC (30-36) % RDW (11.6-14.8) % Plt Count (150-400) X10^3/uL Neut % (Auto) (50-75) % Lymph % (Auto) (25-40) % [place] % (Auto) (3-14) % Eos % (Auto) (2-4) % Baso % (Auto) (0-2) % Neut # (Auto) (7884-2644) /uL Lymph # (Auto) (2569-9567) /uL [place] # (Auto) (0-900) /uL Eos # (Auto) (0-450) /uL Baso # (Auto) (0-100) /uL PT (10.1-12.7) SECONDS INR (0.9-1.3) APTT 56 H D (26-36) SECONDS ABG pH (7.35-7.45) ABG pCO2 (35-45) mmHg ABG pO2 (80-100) mmHg ABG HCO3 (22-26) mmol/L ABG Total CO2 (21-31) mmol/L ABG O2 Saturation (95-100) % ABG Base Excess (-2-2) mmol/L FiO2 Sodium 137 (137-145) mmol/L Potassium 3.7 (3.4-5.1) mmol/L Chloride 106 (98-107) mmol/L Carbon Dioxide 29 (22-32) mmol/L BUN 12 (7-17) mg/dL Creatinine 0.65 (0.52-1.04) mg/dL Estimated GFR > 60 (>60) mL/min BUN/Creatinine Ratio 18.5 (6-22) Glucose 117 H (70-100) mg/dL Lactate 0.8 (0.7-2.1) mmol/L Calcium 7.0 L (8.4-10.2) mg/dL Magnesium (1.6-2.3) mg/dL Total Bilirubin 0.3 (0.2-1.3) mg/dL AST 136 H (14-36) IU/L ALT 112 H (<35) IU/L Alkaline Phosphatase 121 (38-126) U/L Total Creatine Kinase (30-135) U/L CK-MB (CK-2) CK-MB (CK-2) Rel Index Troponin I (0.01-0.034) ng/mL NT-Pro-B Natriuret Pep (<125) pg/mL Total Protein 5.1 L (6.3-8.2) g/dL Albumin 2.8 L (3.5-5.0) g/dL Globulin 2.3 (1.7-4.1) g/dL Albumin/Globulin Ratio 1.2 (1.0-2.8) Lipase 62 (23-300) U/L Procalcitonin 0.12 (<0.5) ng/mL Urine Color Urine Appearance Urine pH (4.5-8.0) Ur Specific [place] (1.000-1.035) Urine Protein (Negative) Urine Glucose (UA) (Negative) g/dL Urine Ketones (NEGATIVE) Urine Occult Blood (Negative) Urine Nitrate (Negative) Urine Bilirubin (NEGATIVE) Urine Urobilinogen (0.2) E.U./dL Ur Leukocyte Esterase (NEGATIVE) Urine RBC (0-5/HPF) Urine WBC (0-5/HPF) Amorphous Sediment Urine Bacteria (None) Ur Culture Indicated? U Opiates 300ng/mL cut (Negative) Ur Oxycodone Screen (Negative) Urine Methadone Screen (Negative) Ur Barbiturates Screen (Negative) U Tricyclic Antidepress (Negative) Ur Phencyclidine Scrn (Negative) Ur Amphetamines Screen (Negative) U Methamphetamines Scrn (Negative) Ur MDMA Scrn (Ecstasy) (Negative) U Benzodiazepines Scrn (Negative) Urine Cocaine Screen (Negative) U Marijuana (THC) Screen (Negative) Ethyl Alcohol ( - 10) mg/dL SARS-CoV-2 (PCR) (Negative) Influenza A (RT-PCR) (NEGATIVE) Influenza B (RT-PCR) (NEGATIVE) RSV (PCR) (Negative) 10/09/22 10/09/22 10/10/22 Range/Units 13:30 19:25 01:39 WBC (4.5-11.0) X10^3/uL RBC (4.0-5.2) X10^6/uL Hgb (12.0-16.0) g/dL Hct (36-46) % MCV (80-100) fL MCH (26-34) PG MCHC (30-36) % RDW (11.6-14.8) % Plt Count (150-400) X10^3/uL Neut % (Auto) (50-75) % Lymph % (Auto) (25-40) % [place] % (Auto) (3-14) % Eos % (Auto) (2-4) % Baso % (Auto) (0-2) % Neut # (Auto) (7607-6704) /uL Lymph # (Auto) (6789-1309) /uL [place] # (Auto) (0-900) /uL Eos # (Auto) (0-450) /uL Baso # (Auto) (0-100) /uL PT (10.1-12.7) SECONDS INR (0.9-1.3) APTT 50 H 50 H 43 H (26-36) SECONDS ABG pH (7.35-7.45) ABG pCO2 (35-45) mmHg ABG pO2 (80-100) mmHg ABG HCO3 (22-26) mmol/L ABG Total CO2 (21-31) mmol/L ABG O2 Saturation (95-100) % ABG Base Excess (-2-2) mmol/L FiO2 Sodium (137-145) mmol/L Potassium (3.4-5.1) mmol/L Chloride (98-107) mmol/L Carbon Dioxide (22-32) mmol/L BUN (7-17) mg/dL Creatinine (0.52-1.04) mg/dL Estimated GFR (>60) mL/min BUN/Creatinine Ratio (6-22) Glucose (70-100) mg/dL Lactate (0.7-2.1) mmol/L Calcium (8.4-10.2) mg/dL Magnesium (1.6-2.3) mg/dL Total Bilirubin (0.2-1.3) mg/dL AST (14-36) IU/L ALT (<35) IU/L Alkaline Phosphatase (38-126) U/L Total Creatine Kinase (30-135) U/L CK-MB (CK-2) CK-MB (CK-2) Rel Index Troponin I (0.01-0.034) ng/mL NT-Pro-B Natriuret Pep (<125) pg/mL Total Protein (6.3-8.2) g/dL Albumin (3.5-5.0) g/dL Globulin (1.7-4.1) g/dL Albumin/Globulin Ratio (1.0-2.8) Lipase (23-300) U/L Procalcitonin (<0.5) ng/mL Urine Color Urine Appearance Urine pH (4.5-8.0) Ur Specific [place] (1.000-1.035) Urine Protein (Negative) Urine Glucose (UA) (Negative) g/dL Urine Ketones (NEGATIVE) Urine Occult Blood (Negative) Urine Nitrate (Negative) Urine Bilirubin (NEGATIVE) Urine Urobilinogen (0.2) E.U./dL Ur Leukocyte Esterase (NEGATIVE) Urine RBC (0-5/HPF) Urine WBC (0-5/HPF) Amorphous Sediment Urine Bacteria (None) Ur Culture Indicated? U Opiates 300ng/mL cut (Negative) Ur Oxycodone Screen (Negative) Urine Methadone Screen (Negative) Ur Barbiturates Screen (Negative) U Tricyclic Antidepress (Negative) Ur Phencyclidine Scrn (Negative) Ur Amphetamines Screen (Negative) U Methamphetamines Scrn (Negative) Ur MDMA Scrn (Ecstasy) (Negative) U Benzodiazepines Scrn (Negative) Urine Cocaine Screen (Negative) U Marijuana (THC) Screen (Negative) Ethyl Alcohol ( - 10) mg/dL SARS-CoV-2 (PCR) (Negative) Influenza A (RT-PCR) (NEGATIVE) Influenza B (RT-PCR) (NEGATIVE) RSV (PCR) (Negative) 10/10/22 10/10/22 10/10/22 Range/Units 06:20 06:20 06:20 WBC 4.1 L (4.5-11.0) X10^3/uL RBC 3.59 L (4.0-5.2) X10^6/uL Hgb 9.9 L (12.0-16.0) g/dL Hct 30.4 L (36-46) % MCV 84.7 (80-100) fL MCH 27.5 (26-34) PG MCHC 32.5 (30-36) % RDW 18.8 H (11.6-14.8) % Plt Count 114 L (150-400) X10^3/uL Neut % (Auto) 59.3 (50-75) % Lymph % (Auto) 32.2 (25-40) % [place] % (Auto) 7.7 (3-14) % Eos % (Auto) 0.2 L (2-4) % Baso % (Auto) 0.6 (0-2) % Neut # (Auto) 2400 (7580-7975) /uL Lymph # (Auto) 1300 (9468-0001) /uL [place] # (Auto) 300 (0-900) /uL Eos # (Auto) 0 (0-450) /uL Baso # (Auto) 0 (0-100) /uL PT (10.1-12.7) SECONDS INR (0.9-1.3) APTT 44 H (26-36) SECONDS ABG pH (7.35-7.45) ABG pCO2 (35-45) mmHg ABG pO2 (80-100) mmHg ABG HCO3 (22-26) mmol/L ABG Total CO2 (21-31) mmol/L ABG O2 Saturation (95-100) % ABG Base Excess (-2-2) mmol/L FiO2 Sodium 138 (137-145) mmol/L Potassium 3.3 L (3.4-5.1) mmol/L Chloride 105 (98-107) mmol/L Carbon Dioxide 31 (22-32) mmol/L BUN 7 (7-17) mg/dL Creatinine 0.58 (0.52-1.04) mg/dL Estimated GFR > 60 (>60) mL/min BUN/Creatinine Ratio 12.1 (6-22) Glucose 97 (70-100) mg/dL Lactate (0.7-2.1) mmol/L Calcium 7.6 L (8.4-10.2) mg/dL Magnesium (1.6-2.3) mg/dL Total Bilirubin 0.3 (0.2-1.3) mg/dL AST 202 H (14-36) IU/L ALT 260 H (<35) IU/L Alkaline Phosphatase 114 (38-126) U/L Total Creatine Kinase (30-135) U/L CK-MB (CK-2) CK-MB (CK-2) Rel Index Troponin I 1.600 H* (0.01-0.034) ng/mL NT-Pro-B Natriuret Pep 1530 H (<125) pg/mL Total Protein 5.1 L (6.3-8.2) g/dL Albumin 2.8 L (3.5-5.0) g/dL Globulin 2.3 (1.7-4.1) g/dL Albumin/Globulin Ratio 1.2 (1.0-2.8) Lipase (23-300) U/L Procalcitonin (<0.5) ng/mL Urine Color Urine Appearance Urine pH (4.5-8.0) Ur Specific [place] (1.000-1.035) Urine Protein (Negative) Urine Glucose (UA) (Negative) g/dL Urine Ketones (NEGATIVE) Urine Occult Blood (Negative) Urine Nitrate (Negative) Urine Bilirubin (NEGATIVE) Urine Urobilinogen (0.2) E.U./dL Ur Leukocyte Esterase (NEGATIVE) Urine RBC (0-5/HPF) Urine WBC (0-5/HPF) Amorphous Sediment Urine Bacteria (None) Ur Culture Indicated? U Opiates 300ng/mL cut (Negative) Ur Oxycodone Screen (Negative) Urine Methadone Screen (Negative) Ur Barbiturates Screen (Negative) U Tricyclic Antidepress (Negative) Ur Phencyclidine Scrn (Negative) Ur Amphetamines Screen (Negative) U Methamphetamines Scrn (Negative) Ur MDMA Scrn (Ecstasy) (Negative) U Benzodiazepines Scrn (Negative) Urine Cocaine Screen (Negative) U Marijuana (THC) Screen (Negative) Ethyl Alcohol ( - 10) mg/dL SARS-CoV-2 (PCR) (Negative) Influenza A (RT-PCR) (NEGATIVE) Influenza B (RT-PCR) (NEGATIVE) RSV (PCR) (Negative) 10/10/22 10/10/22 10/10/22 Range/Units 12:16 12:16 18:29 WBC (4.5-11.0) X10^3/uL RBC (4.0-5.2) X10^6/uL Hgb (12.0-16.0) g/dL Hct (36-46) % MCV (80-100) fL MCH (26-34) PG MCHC (30-36) % RDW (11.6-14.8) % Plt Count (150-400) X10^3/uL Neut % (Auto) (50-75) % Lymph % (Auto) (25-40) % [place] % (Auto) (3-14) % Eos % (Auto) (2-4) % Baso % (Auto) (0-2) % Neut # (Auto) (8491-8580) /uL Lymph # (Auto) (2947-7547) /uL [place] # (Auto) (0-900) /uL Eos # (Auto) (0-450) /uL Baso # (Auto) (0-100) /uL PT (10.1-12.7) SECONDS INR (0.9-1.3) APTT 46 H 46 H (26-36) SECONDS ABG pH (7.35-7.45) ABG pCO2 (35-45) mmHg ABG pO2 (80-100) mmHg ABG HCO3 (22-26) mmol/L ABG Total CO2 (21-31) mmol/L ABG O2 Saturation (95-100) % ABG Base Excess (-2-2) mmol/L FiO2 Sodium (137-145) mmol/L Potassium (3.4-5.1) mmol/L Chloride (98-107) mmol/L Carbon Dioxide (22-32) mmol/L BUN (7-17) mg/dL Creatinine (0.52-1.04) mg/dL Estimated GFR (>60) mL/min BUN/Creatinine Ratio (6-22) Glucose (70-100) mg/dL Lactate (0.7-2.1) mmol/L Calcium (8.4-10.2) mg/dL Magnesium 1.5 L (1.6-2.3) mg/dL Total Bilirubin (0.2-1.3) mg/dL AST (14-36) IU/L ALT (<35) IU/L Alkaline Phosphatase (38-126) U/L Total Creatine Kinase (30-135) U/L CK-MB (CK-2) CK-MB (CK-2) Rel Index Troponin I (0.01-0.034) ng/mL NT-Pro-B Natriuret Pep (<125) pg/mL Total Protein (6.3-8.2) g/dL Albumin (3.5-5.0) g/dL Globulin (1.7-4.1) g/dL Albumin/Globulin Ratio (1.0-2.8) Lipase (23-300) U/L Procalcitonin (<0.5) ng/mL Urine Color Urine Appearance Urine pH (4.5-8.0) Ur Specific [place] (1.000-1.035) Urine Protein (Negative) Urine Glucose (UA) (Negative) g/dL Urine Ketones (NEGATIVE) Urine Occult Blood (Negative) Urine Nitrate (Negative) Urine Bilirubin (NEGATIVE) Urine Urobilinogen (0.2) E.U./dL Ur Leukocyte Esterase (NEGATIVE) Urine RBC (0-5/HPF) Urine WBC (0-5/HPF) Amorphous Sediment Urine Bacteria (None) Ur Culture Indicated? U Opiates 300ng/mL cut (Negative) Ur Oxycodone Screen (Negative) Urine Methadone Screen (Negative) Ur Barbiturates Screen (Negative) U Tricyclic Antidepress (Negative) Ur Phencyclidine Scrn (Negative) Ur Amphetamines Screen (Negative) U Methamphetamines Scrn (Negative) Ur MDMA Scrn (Ecstasy) (Negative) U Benzodiazepines Scrn (Negative) Urine Cocaine Screen (Negative) U Marijuana (THC) Screen (Negative) Ethyl Alcohol ( - 10) mg/dL SARS-CoV-2 (PCR) (Negative) Influenza A (RT-PCR) (NEGATIVE) Influenza B (RT-PCR) (NEGATIVE) RSV (PCR) (Negative) 10/11/22 10/11/22 10/11/22 Range/Units 01:00 06:07 06:07 WBC 3.9 L (4.5-11.0) X10^3/uL RBC 3.07 L (4.0-5.2) X10^6/uL Hgb 8.6 L (12.0-16.0) g/dL Hct 25.8 L (36-46) % MCV 84.3 (80-100) fL MCH 28.2 (26-34) PG MCHC 33.4 (30-36) % RDW 18.2 H (11.6-14.8) % Plt Count 105 L (150-400) X10^3/uL Neut % (Auto) 57.5 (50-75) % Lymph % (Auto) 32.9 (25-40) % [place] % (Auto) 9.2 (3-14) % Eos % (Auto) 0.2 L (2-4) % Baso % (Auto) 0.2 (0-2) % Neut # (Auto) 2200 (2575-7104) /uL Lymph # (Auto) 1300 (8581-7407) /uL [place] # (Auto) 400 (0-900) /uL Eos # (Auto) 0 (0-450) /uL Baso # (Auto) 0 (0-100) /uL PT (10.1-12.7) SECONDS INR (0.9-1.3) APTT 55 H D (26-36) SECONDS ABG pH (7.35-7.45) ABG pCO2 (35-45) mmHg ABG pO2 (80-100) mmHg ABG HCO3 (22-26) mmol/L ABG Total CO2 (21-31) mmol/L ABG O2 Saturation (95-100) % ABG Base Excess (-2-2) mmol/L FiO2 Sodium 137 (137-145) mmol/L Potassium 3.3 L (3.4-5.1) mmol/L Chloride 112 H (98-107) mmol/L Carbon Dioxide 24 (22-32) mmol/L BUN 4 L (7-17) mg/dL Creatinine 0.48 L (0.52-1.04) mg/dL Estimated GFR > 60 (>60) mL/min BUN/Creatinine Ratio 8.3 (6-22) Glucose 84 (70-100) mg/dL Lactate (0.7-2.1) mmol/L Calcium 6.5 L (8.4-10.2) mg/dL Magnesium (1.6-2.3) mg/dL Total Bilirubin 0.2 (0.2-1.3) mg/dL AST 96 H (14-36) IU/L ALT 210 H (<35) IU/L Alkaline Phosphatase 93 (38-126) U/L Total Creatine Kinase (30-135) U/L CK-MB (CK-2) CK-MB (CK-2) Rel Index Troponin I 0.857 H* (0.01-0.034) ng/mL NT-Pro-B Natriuret Pep (<125) pg/mL Total Protein 4.4 L (6.3-8.2) g/dL Albumin 2.3 L (3.5-5.0) g/dL Globulin 2.1 (1.7-4.1) g/dL Albumin/Globulin Ratio 1.1 (1.0-2.8) Lipase (23-300) U/L Procalcitonin (<0.5) ng/mL Urine Color Urine Appearance Urine pH (4.5-8.0) Ur Specific [place] (1.000-1.035) Urine Protein (Negative) Urine Glucose (UA) (Negative) g/dL Urine Ketones (NEGATIVE) Urine Occult Blood (Negative) Urine Nitrate (Negative) Urine Bilirubin (NEGATIVE) Urine Urobilinogen (0.2) E.U./dL Ur Leukocyte Esterase (NEGATIVE) Urine RBC (0-5/HPF) Urine WBC (0-5/HPF) Amorphous Sediment Urine Bacteria (None) Ur Culture Indicated? U Opiates 300ng/mL cut (Negative) Ur Oxycodone Screen (Negative) Urine Methadone Screen (Negative) Ur Barbiturates Screen (Negative) U Tricyclic Antidepress (Negative) Ur Phencyclidine Scrn (Negative) Ur Amphetamines Screen (Negative) U Methamphetamines Scrn (Negative) Ur MDMA Scrn (Ecstasy) (Negative) U Benzodiazepines Scrn (Negative) Urine Cocaine Screen (Negative) U Marijuana (THC) Screen (Negative) Ethyl Alcohol ( - 10) mg/dL SARS-CoV-2 (PCR) (Negative) Influenza A (RT-PCR) (NEGATIVE) Influenza B (RT-PCR) (NEGATIVE) RSV (PCR) (Negative) 10/11/22 10/11/22 Range/Units 17:44 17:44 WBC 4.5 (4.5-11.0) X10^3/uL RBC 3.65 L (4.0-5.2) X10^6/uL Hgb 10.1 L (12.0-16.0) g/dL Hct 30.8 L (36-46) % MCV 84.4 (80-100) fL MCH 27.7 (26-34) PG MCHC 32.9 (30-36) % RDW 18.4 H (11.6-14.8) % Plt Count 128 L (150-400) X10^3/uL Neut % (Auto) 67.2 (50-75) % Lymph % (Auto) 22.9 L (25-40) % [place] % (Auto) 9.0 (3-14) % Eos % (Auto) 0.3 L (2-4) % Baso % (Auto) 0.6 (0-2) % Neut # (Auto) 3000 (1301-5067) /uL Lymph # (Auto) 1000 L (2583-6907) /uL [place] # (Auto) 400 (0-900) /uL Eos # (Auto) 0 (0-450) /uL Baso # (Auto) 0 (0-100) /uL PT (10.1-12.7) SECONDS INR (0.9-1.3) APTT (26-36) SECONDS ABG pH (7.35-7.45) ABG pCO2 (35-45) mmHg ABG pO2 (80-100) mmHg ABG HCO3 (22-26) mmol/L ABG Total CO2 (21-31) mmol/L ABG O2 Saturation (95-100) % ABG Base Excess (-2-2) mmol/L FiO2 Sodium 138 (137-145) mmol/L Potassium 4.4 (3.4-5.1) mmol/L Chloride 106 (98-107) mmol/L Carbon Dioxide 29 (22-32) mmol/L BUN 5 L (7-17) mg/dL Creatinine 0.60 (0.52-1.04) mg/dL Estimated GFR > 60 (>60) mL/min BUN/Creatinine Ratio 8.3 (6-22) Glucose 90 (70-100) mg/dL Lactate (0.7-2.1) mmol/L Calcium 8.0 L (8.4-10.2) mg/dL Magnesium 1.9 (1.6-2.3) mg/dL Total Bilirubin 0.3 (0.2-1.3) mg/dL AST 76 H (14-36) IU/L ALT 231 H (<35) IU/L Alkaline Phosphatase 120 (38-126) U/L Total Creatine Kinase (30-135) U/L CK-MB (CK-2) CK-MB (CK-2) Rel Index Troponin I (0.01-0.034) ng/mL NT-Pro-B Natriuret Pep (<125) pg/mL Total Protein 5.5 L (6.3-8.2) g/dL Albumin 3.1 L (3.5-5.0) g/dL Globulin 2.4 (1.7-4.1) g/dL Albumin/Globulin Ratio 1.3 (1.0-2.8) Lipase (23-300) U/L Procalcitonin (<0.5) ng/mL Urine Color Urine Appearance Urine pH (4.5-8.0) Ur Specific [place] (1.000-1.035) Urine Protein (Negative) Urine Glucose (UA) (Negative) g/dL Urine Ketones (NEGATIVE) Urine Occult Blood (Negative) Urine Nitrate (Negative) Urine Bilirubin (NEGATIVE) Urine Urobilinogen (0.2) E.U./dL Ur Leukocyte Esterase (NEGATIVE) Urine RBC (0-5/HPF) Urine WBC (0-5/HPF) Amorphous Sediment Urine Bacteria (None) Ur Culture Indicated? U Opiates 300ng/mL cut (Negative) Ur Oxycodone Screen (Negative) Urine Methadone Screen (Negative) Ur Barbiturates Screen (Negative) U Tricyclic Antidepress (Negative) Ur Phencyclidine Scrn (Negative) Ur Amphetamines Screen (Negative) U Methamphetamines Scrn (Negative) Ur MDMA Scrn (Ecstasy) (Negative) U Benzodiazepines Scrn (Negative) Urine Cocaine Screen (Negative) U Marijuana (THC) Screen (Negative) Ethyl Alcohol ( - 10) mg/dL SARS-CoV-2 (PCR) (Negative) Influenza A (RT-PCR) (NEGATIVE) Influenza B (RT-PCR) (NEGATIVE) RSV (PCR) (Negative) Point of Care Testing Stool Occult Blood Negative MDM Narrative Medical decision making narrative: This is a 57-year-old female who presented with possible flu-like symptoms patient had a cardiac arrest in the waiting room. Patient had approximately 10 minutes of CPR total, she received 1 mg of epi, amiodarone 300 mg apand pear to be in VFib she was defibrillated and cardioverted to AFib which ultimately became a sinus rhythm. Patient had almost immediate regain of pulses and within several minutes was conversant. Initial labs show low calcium, potassium is relatively normal she is had issues in the past. She appeared to be in VFib arrest, she responded well to diff fibrillation converted to AFib and is now conversant. Patient is able to give history, she also received epi 1 mg, amiodarone 300 mg continuing with 6 hour infusion. Patient has been persistently hypotensive initially was started norepinephrine but after conversation with Cardiology they recommend phenylephrine and changed over and patient has responded well maintaining a map greater than 65 but has had a systolic often in the 100 range. Patient received fluids she did not appear significantly fluid overloaded but is high risk. Her labs and imaging showed some mild electrolyte abnormalities with potassium of 3.3, calcium was also low, magnesium is technically normal but was recommended goals of potassium of gre ater than 4 and 2 for magnesium. Patient's ABG post CPR is essentially normal. Patient does not have any renal dysfunction, no significant anemia, normal LFTs otherwise, troponin on repeat did trend upwards but this could very easily be from cardiac shock and CPR will continue to trend. CTA shows pulmonary artery hypertension possibly from enlarged main pulmonary artery, no PE or other clear cause CT abdomen pelvis also does not show a clear cause for her cardiac arrest today, she has multiple rib fractures from her CPR. Patient has had some pain she responds well to fentanyl. She has been oxygenating appropriately but has been on 2 L. patient's urine shows possible infection so she was covered with an antibiotic. Had multiple consultations with Cardiology through [facility] as well as Dr. Benavides at [facility]. No bed availability continuing to seek placement with [facility] cc through regional hotline. Dr. Bazan from Cardiology called back her stat echo shows a decrease in her EF to 35 % which is new from her priors as well as focal wall motion abnormalities he does recommend continue with aspirin, high-dose statin, heparin and needs transfer for cardiac catheterization in ICD placement. Patient signed out to Dr. Garcia select 1/10, patient has repeat labs pending this evening, plan to continue amiodarone, monitor electrolytes, phenylephrine and attempting to transfer. There is critical bed shortage in the region and patient has been placed on [facility] regional hotline list. Radha-patient signed out to me by Dr. Price. He was seen evaluated patient myself she. Sh presently awake alert and pleasant. She has no complaints. She actually did have a nonsustained run of V. She continues on amiodarone drip. Awaiting placement is. Troponin continues to rise. She is still requiring a touch of vasopressor to help with blood pressure support. EF 35-40%. Once IV amiodarone is done will likely need p.o. amiodarone. Significant bed critical shortage she is on multiple wait list and [facility] has been notified. Dr mercado 10/09/22: Received turned over. Review patient's history and physical and workup performed up to this point. Patient has been stable day. She is off of blood pressure medications. I did discuss the case with Dr. Thorne on-call for cardiology who recommended continuing the patient on amiodarone IV. We will hold on Lasix for now unless she develops fluid overload. Still attempting to find placement for patient. Care turned over to Dr. Miller to continue to observe overnight. Dr mercado: 10/10/22 received turned over had reviewed the 24 hour events for the patient. She continues to be stable. Late in the afternoon she stated that she was having some fluttering in her chest. There was no ectopy on the monitor. Repeat EKG shows sinus rhythm with a ventricular rate of 80. Her potassium and magnesium were replaced. Urine culture today resulted as no growth so her Rocephin was discontinued. She continues to be on amiodarone. She continues to be on the heparin drip. Care turned over to Dr. Barkley to continue to observe and disposition. <Natalie Barkley MD - Last Filed: 10/12/22 06:24> Lab Data Labs: Lab Results 10/08/22 10/08/22 10/08/22 Range/Units 10:03 10:11 10:11 WBC 4.6 (4.5-11.0) X10^3/uL RBC 4.21 (4.0-5.2) X10^6/uL Hgb 11.7 L (12.0-16.0) g/dL Hct 35.9 L (36-46) % MCV 85.3 (80-100) fL MCH 27.7 (26-34) PG MCHC 32.5 (30-36) % RDW 19.3 H (11.6-14.8) % Plt Count 182 (150-400) X10^3/uL Neut % (Auto) 69.7 (50-75) % Lymph % (Auto) 22.1 L (25-40) % [place] % (Auto) 7.9 (3-14) % Eos % (Auto) 0.1 L (2-4) % Baso % (Auto) 0.2 (0-2) % Neut # (Auto) 3200 (6423-5809) /uL Lymph # (Auto) 1000 L (5661-4533) /uL [place] # (Auto) 400 (0-900) /uL Eos # (Auto) 0 (0-450) /uL Baso # (Auto) 0 (0-100) /uL PT (10.1-12.7) SECONDS INR (0.9-1.3) APTT (26-36) SECONDS ABG pH (7.35-7.45) ABG pCO2 (35-45) mmHg ABG pO2 (80-100) mmHg ABG HCO3 (22-26) mmol/L ABG Total CO2 (21-31) mmol/L ABG O2 Saturation (95-100) % ABG Base Excess (-2-2) mmol/L FiO2 Sodium 143 (137-145) mmol/L Potassium 3.3 L (3.4-5.1) mmol/L Chloride 104 (98-107) mmol/L Carbon Dioxide 34 H (22-32) mmol/L BUN 12 (7-17) mg/dL Creatinine 0.60 (0.52-1.04) mg/dL Estimated GFR > 60 (>60) mL/min BUN/Creatinine Ratio 20.0 (6-22) Glucose 95 (70-100) mg/dL Lactate (0.7-2.1) mmol/L Calcium 7.9 L (8.4-10.2) mg/dL Magnesium (1.6-2.3) mg/dL Total Bilirubin 0.3 (0.2-1.3) mg/dL AST 18 (14-36) IU/L ALT 15 (<35) IU/L Alkaline Phosphatase 104 (38-126) U/L Total Creatine Kinase (30-135) U/L CK-MB (CK-2) CK-MB (CK-2) Rel Index Troponin I (0.01-0.034) ng/mL NT-Pro-B Natriuret Pep (<125) pg/mL Total Protein 6.4 (6.3-8.2) g/dL Albumin 3.5 (3.5-5.0) g/dL Globulin 2.9 (1.7-4.1) g/dL Albumin/Globulin Ratio 1.2 (1.0-2.8) Lipase 45 (23-300) U/L Procalcitonin < 0.03 (<0.5) ng/mL Urine Color Urine Appearance Urine pH (4.5-8.0) Ur Specific [place] (1.000-1.035) Urine Protein (Negative) Urine Glucose (UA) (Negative) g/dL Urine Ketones (NEGATIVE) Urine Occult Blood (Negative) Urine Nitrate (Negative) Urine Bilirubin (NEGATIVE) Urine Urobilinogen (0.2) E.U./dL Ur Leukocyte Esterase (NEGATIVE) Urine RBC (0-5/HPF) Urine WBC (0-5/HPF) Amorphous Sediment Urine Bacteria (None) Ur Culture Indicated? U Opiates 300ng/mL cut (Negative) Ur Oxycodone Screen (Negative) Urine Methadone Screen (Negative) Ur Barbiturates Screen (Negative) U Tricyclic Antidepress (Negative) Ur Phencyclidine Scrn (Negative) Ur Amphetamines Screen (Negative) U Methamphetamines Scrn (Negative) Ur MDMA Scrn (Ecstasy) (Negative) U Benzodiazepines Scrn (Negative) Urine Cocaine Screen (Negative) U Marijuana (THC) Screen (Negative) Ethyl Alcohol ( - 10) mg/dL SARS-CoV-2 (PCR) Negative (Negative) Influenza A (RT-PCR) Flu a negative (NEGATIVE) Influenza B (RT-PCR) Flu b negative (NEGATIVE) RSV (PCR) Negative (Negative) 10/08/22 10/08/22 10/08/22 Range/Units 10:11 10:11 10:11 WBC (4.5-11.0) X10^3/uL RBC (4.0-5.2) X10^6/uL Hgb (12.0-16.0) g/dL Hct (36-46) % MCV (80-100) fL MCH (26-34) PG MCHC (30-36) % RDW (11.6-14.8) % Plt Count (150-400) X10^3/uL Neut % (Auto) (50-75) % Lymph % (Auto) (25-40) % [place] % (Auto) (3-14) % Eos % (Auto) (2-4) % Baso % (Auto) (0-2) % Neut # (Auto) (9103-9806) /uL Lymph # (Auto) (7821-5098) /uL [place] # (Auto) (0-900) /uL Eos # (Auto) (0-450) /uL Baso # (Auto) (0-100) /uL PT 11.3 (10.1-12.7) SECONDS INR 1.0 (0.9-1.3) APTT 29 (26-36) SECONDS ABG pH (7.35-7.45) ABG pCO2 (35-45) mmHg ABG pO2 (80-100) mmHg ABG HCO3 (22-26) mmol/L ABG Total CO2 (21-31) mmol/L ABG O2 Saturation (95-100) % ABG Base Excess (-2-2) mmol/L FiO2 Sodium (137-145) mmol/L Potassium (3.4-5.1) mmol/L Chloride (98-107) mmol/L Carbon Dioxide (22-32) mmol/L BUN (7-17) mg/dL Creatinine (0.52-1.04) mg/dL Estimated GFR (>60) mL/min BUN/Creatinine Ratio (6-22) Glucose (70-100) mg/dL Lactate 1.0 (0.7-2.1) mmol/L Calcium (8.4-10.2) mg/dL Magnesium (1.6-2.3) mg/dL Total Bilirubin (0.2-1.3) mg/dL AST (14-36) IU/L ALT (<35) IU/L Alkaline Phosphatase (38-126) U/L Total Creatine Kinase 32 (30-135) U/L CK-MB (CK-2) TNP CK-MB (CK-2) Rel Index TNP Troponin I < 0.012 (0.01-0.034) ng/mL NT-Pro-B Natriuret Pep 240 H (<125) pg/mL Total Protein (6.3-8.2) g/dL Albumin (3.5-5.0) g/dL Globulin (1.7-4.1) g/dL Albumin/Globulin Ratio (1.0-2.8) Lipase (23-300) U/L Procalcitonin (<0.5) ng/mL Urine Color Urine Appearance Urine pH (4.5-8.0) Ur Specific [place] (1.000-1.035) Urine Protein (Negative) Urine Glucose (UA) (Negative) g/dL Urine Ketones (NEGATIVE) Urine Occult Blood (Negative) Urine Nitrate (Negative) Urine Bilirubin (NEGATIVE) Urine Urobilinogen (0.2) E.U./dL Ur Leukocyte Esterase (NEGATIVE) Urine RBC (0-5/HPF) Urine WBC (0-5/HPF) Amorphous Sediment Urine Bacteria (None) Ur Culture Indicated? U Opiates 300ng/mL cut (Negative) Ur Oxycodone Screen (Negative) Urine Methadone Screen (Negative) Ur Barbiturates Screen (Negative) U Tricyclic Antidepress (Negative) Ur Phencyclidine Scrn (Negative) Ur Amphetamines Screen (Negative) U Methamphetamines Scrn (Negative) Ur MDMA Scrn (Ecstasy) (Negative) U Benzodiazepines Scrn (Negative) Urine Cocaine Screen (Negative) U Marijuana (THC) Screen (Negative) Ethyl Alcohol ( - 10) mg/dL SARS-CoV-2 (PCR) (Negative) Influenza A (RT-PCR) (NEGATIVE) Influenza B (RT-PCR) (NEGATIVE) RSV (PCR) (Negative) 10/08/22 10/08/22 10/08/22 Range/Units 10:11 10:43 12:50 WBC (4.5-11.0) X10^3/uL RBC (4.0-5.2) X10^6/uL Hgb (12.0-16.0) g/dL Hct (36-46) % MCV (80-100) fL MCH (26-34) PG MCHC (30-36) % RDW (11.6-14.8) % Plt Count (150-400) X10^3/uL Neut % (Auto) (50-75) % Lymph % (Auto) (25-40) % [place] % (Auto) (3-14) % Eos % (Auto) (2-4) % Baso % (Auto) (0-2) % Neut # (Auto) (3644-1223) /uL Lymph # (Auto) (8133-9750) /uL [place] # (Auto) (0-900) /uL Eos # (Auto) (0-450) /uL Baso # (Auto) (0-100) /uL PT (10.1-12.7) SECONDS INR (0.9-1.3) APTT (26-36) SECONDS ABG pH 7.40 (7.35-7.45) ABG pCO2 37.3 (35-45) mmHg ABG pO2 144 H (80-100) mmHg ABG HCO3 23 (22-26) mmol/L ABG Total CO2 24 (21-31) mmol/L ABG O2 Saturation 99 (95-100) % ABG Base Excess -2.0 (-2-2) mmol/L FiO2 80 Sodium (137-145) mmol/L Potassium (3.4-5.1) mmol/L Chloride (98-107) mmol/L Carbon Dioxide (22-32) mmol/L BUN (7-17) mg/dL Creatinine (0.52-1.04) mg/dL Estimated GFR (>60) mL/min BUN/Creatinine Ratio (6-22) Glucose (70-100) mg/dL Lactate 1.4 (0.7-2.1) mmol/L Calcium (8.4-10.2) mg/dL Magnesium 1.8 (1.6-2.3) mg/dL Total Bilirubin (0.2-1.3) mg/dL AST (14-36) IU/L ALT (<35) IU/L Alkaline Phosphatase (38-126) U/L Total Creatine Kinase (30-135) U/L CK-MB (CK-2) CK-MB (CK-2) Rel Index Troponin I (0.01-0.034) ng/mL NT-Pro-B Natriuret Pep (<125) pg/mL Total Protein (6.3-8.2) g/dL Albumin (3.5-5.0) g/dL Globulin (1.7-4.1) g/dL Albumin/Globulin Ratio (1.0-2.8) Lipase (23-300) U/L Procalcitonin (<0.5) ng/mL Urine Color Urine Appearance Urine pH (4.5-8.0) Ur Specific [place] (1.000-1.035) Urine Protein (Negative) Urine Glucose (UA) (Negative) g/dL Urine Ketones (NEGATIVE) Urine Occult Blood (Negative) Urine Nitrate (Negative) Urine Bilirubin (NEGATIVE) Urine Urobilinogen (0.2) E.U./dL Ur Leukocyte Esterase (NEGATIVE) Urine RBC (0-5/HPF) Urine WBC (0-5/HPF) Amorphous Sediment Urine Bacteria (None) Ur Culture Indicated? U Opiates 300ng/mL cut (Negative) Ur Oxycodone Screen (Negative) Urine Methadone Screen (Negative) Ur Barbiturates Screen (Negative) U Tricyclic Antidepress (Negative) Ur Phencyclidine Scrn (Negative) Ur Amphetamines Screen (Negative) U Methamphetamines Scrn (Negative) Ur MDMA Scrn (Ecstasy) (Negative) U Benzodiazepines Scrn (Negative) Urine Cocaine Screen (Negative) U Marijuana (THC) Screen (Negative) Ethyl Alcohol ( - 10) mg/dL SARS-CoV-2 (PCR) (Negative) Influenza A (RT-PCR) (NEGATIVE) Influenza B (RT-PCR) (NEGATIVE) RSV (PCR) (Negative) 10/08/22 10/08/22 10/08/22 Range/Units 12:50 12:50 12:50 WBC (4.5-11.0) X10^3/uL RBC (4.0-5.2) X10^6/uL Hgb (12.0-16.0) g/dL Hct (36-46) % MCV (80-100) fL MCH (26-34) PG MCHC (30-36) % RDW (11.6-14.8) % Plt Count (150-400) X10^3/uL Neut % (Auto) (50-75) % Lymph % (Auto) (25-40) % [place] % (Auto) (3-14) % Eos % (Auto) (2-4) % Baso % (Auto) (0-2) % Neut # (Auto) (8731-5804) /uL Lymph # (Auto) (9483-4376) /uL [place] # (Auto) (0-900) /uL Eos # (Auto) (0-450) /uL Baso # (Auto) (0-100) /uL PT (10.1-12.7) SECONDS INR (0.9-1.3) APTT (26-36) SECONDS ABG pH (7.35-7.45) ABG pCO2 (35-45) mmHg ABG pO2 (80-100) mmHg ABG HCO3 (22-26) mmol/L ABG Total CO2 (21-31) mmol/L ABG O2 Saturation (95-100) % ABG Base Excess (-2-2) mmol/L FiO2 Sodium (137-145) mmol/L Potassium (3.4-5.1) mmol/L Chloride (98-107) mmol/L Carbon Dioxide (22-32) mmol/L BUN (7-17) mg/dL Creatinine (0.52-1.04) mg/dL Estimated GFR (>60) mL/min BUN/Creatinine Ratio (6-22) Glucose (70-100) mg/dL Lactate (0.7-2.1) mmol/L Calcium (8.4-10.2) mg/dL Magnesium (1.6-2.3) mg/dL Total Bilirubin (0.2-1.3) mg/dL AST (14-36) IU/L ALT (<35) IU/L Alkaline Phosphatase (38-126) U/L Total Creatine Kinase (30-135) U/L CK-MB (CK-2) CK-MB (CK-2) Rel Index Troponin I 0.552 H* (0.01-0.034) ng/mL NT-Pro-B Natriuret Pep (<125) pg/mL Total Protein (6.3-8.2) g/dL Albumin (3.5-5.0) g/dL Globulin (1.7-4.1) g/dL Albumin/Globulin Ratio (1.0-2.8) Lipase (23-300) U/L Procalcitonin (<0.5) ng/mL Urine Color Yellow Urine Appearance Sl cloudy Urine pH 8.0 (4.5-8.0) Ur Specific [place] 1.015 (1.000-1.035) Urine Protein 3+ H (Negative) Urine Glucose (UA) 1+ H (Negative) g/dL Urine Ketones Negative (NEGATIVE) Urine Occult Blood 3+ H (Negative) Urine Nitrate Negative (Negative) Urine Bilirubin Negative (NEGATIVE) Urine Urobilinogen 0.2 (0.2) E.U./dL Ur Leukocyte Esterase Trace H (NEGATIVE) Urine RBC >100/hpf H (0-5/HPF) Urine WBC 5-10/hpf H (0-5/HPF) Amorphous Sediment 2+ Urine Bacteria Occasional (0-1) (None) Ur Culture Indicated? Specimen cultured U Opiates 300ng/mL cut (Negative) Ur Oxycodone Screen (Negative) Urine Methadone Screen (Negative) Ur Barbiturates Screen (Negative) U Tricyclic Antidepress (Negative) Ur Phencyclidine Scrn (Negative) Ur Amphetamines Screen (Negative) U Methamphetamines Scrn (Negative) Ur MDMA Scrn (Ecstasy) (Negative) U Benzodiazepines Scrn (Negative) Urine Cocaine Screen (Negative) U Marijuana (THC) Screen (Negative) Ethyl Alcohol < 10 ( - 10) mg/dL SARS-CoV-2 (PCR) (Negative) Influenza A (RT-PCR) (NEGATIVE) Influenza B (RT-PCR) (NEGATIVE) RSV (PCR) (Negative) 10/08/22 10/08/22 10/08/22 Range/Units 12:50 19:05 19:05 WBC (4.5-11.0) X10^3/uL RBC (4.0-5.2) X10^6/uL Hgb (12.0-16.0) g/dL Hct (36-46) % MCV (80-100) fL MCH (26-34) PG MCHC (30-36) % RDW (11.6-14.8) % Plt Count (150-400) X10^3/uL Neut % (Auto) (50-75) % Lymph % (Auto) (25-40) % [place] % (Auto) (3-14) % Eos % (Auto) (2-4) % Baso % (Auto) (0-2) % Neut # (Auto) (6375-3369) /uL Lymph # (Auto) (0830-0555) /uL [place] # (Auto) (0-900) /uL Eos # (Auto) (0-450) /uL Baso # (Auto) (0-100) /uL PT (10.1-12.7) SECONDS INR (0.9-1.3) APTT 26 (26-36) SECONDS ABG pH (7.35-7.45) ABG pCO2 (35-45) mmHg ABG pO2 (80-100) mmHg ABG HCO3 (22-26) mmol/L ABG Total CO2 (21-31) mmol/L ABG O2 Saturation (95-100) % ABG Base Excess (-2-2) mmol/L FiO2 Sodium (137-145) mmol/L Potassium (3.4-5.1) mmol/L Chloride (98-107) mmol/L Carbon Dioxide (22-32) mmol/L BUN (7-17) mg/dL Creatinine (0.52-1.04) mg/dL Estimated GFR (>60) mL/min BUN/Creatinine Ratio (6-22) Glucose (70-100) mg/dL Lactate (0.7-2.1) mmol/L Calcium (8.4-10.2) mg/dL Magnesium (1.6-2.3) mg/dL Total Bilirubin (0.2-1.3) mg/dL AST (14-36) IU/L ALT (<35) IU/L Alkaline Phosphatase (38-126) U/L Total Creatine Kinase (30-135) U/L CK-MB (CK-2) CK-MB (CK-2) Rel Index Troponin I 2.070 H* (0.01-0.034) ng/mL NT-Pro-B Natriuret Pep (<125) pg/mL Total Protein (6.3-8.2) g/dL Albumin (3.5-5.0) g/dL Globulin (1.7-4.1) g/dL Albumin/Globulin Ratio (1.0-2.8) Lipase (23-300) U/L Procalcitonin (<0.5) ng/mL Urine Color Urine Appearance Urine pH (4.5-8.0) Ur Specific [place] (1.000-1.035) Urine Protein (Negative) Urine Glucose (UA) (Negative) g/dL Urine Ketones (NEGATIVE) Urine Occult Blood (Negative) Urine Nitrate (Negative) Urine Bilirubin (NEGATIVE) Urine Urobilinogen (0.2) E.U./dL Ur Leukocyte Esterase (NEGATIVE) Urine RBC (0-5/HPF) Urine WBC (0-5/HPF) Amorphous Sediment Urine Bacteria (None) Ur Culture Indicated? U Opiates 300ng/mL cut Negative (Negative) Ur Oxycodone Screen Negative (Negative) Urine Methadone Screen Negative (Negative) Ur Barbiturates Screen Negative (Negative) U Tricyclic Antidepress Negative (Negative) Ur Phencyclidine Scrn Negative (Negative) Ur Amphetamines Screen Negative (Negative) U Methamphetamines Scrn Negative (Negative) Ur MDMA Scrn (Ecstasy) Negative (Negative) U Benzodiazepines Scrn Negative (Negative) Urine Cocaine Screen Negative (Negative) U Marijuana (THC) Screen Negative (Negative) Ethyl Alcohol ( - 10) mg/dL SARS-CoV-2 (PCR) (Negative) Influenza A (RT-PCR) (NEGATIVE) Influenza B (RT-PCR) (NEGATIVE) RSV (PCR) (Negative) 10/08/22 10/09/22 10/09/22 Range/Units 19:05 00:30 00:30 WBC (4.5-11.0) X10^3/uL RBC (4.0-5.2) X10^6/uL Hgb (12.0-16.0) g/dL Hct (36-46) % MCV (80-100) fL MCH (26-34) PG MCHC (30-36) % RDW (11.6-14.8) % Plt Count (150-400) X10^3/uL Neut % (Auto) (50-75) % Lymph % (Auto) (25-40) % [place] % (Auto) (3-14) % Eos % (Auto) (2-4) % Baso % (Auto) (0-2) % Neut # (Auto) (8744-1791) /uL Lymph # (Auto) (7470-0546) /uL [place] # (Auto) (0-900) /uL Eos # (Auto) (0-450) /uL Baso # (Auto) (0-100) /uL PT (10.1-12.7) SECONDS INR (0.9-1.3) APTT 76 H* D (26-36) SECONDS ABG pH (7.35-7.45) ABG pCO2 (35-45) mmHg ABG pO2 (80-100) mmHg ABG HCO3 (22-26) mmol/L ABG Total CO2 (21-31) mmol/L ABG O2 Saturation (95-100) % ABG Base Excess (-2-2) mmol/L FiO2 Sodium 139 (137-145) mmol/L Potassium 4.7 D (3.4-5.1) mmol/L Chloride 108 H (98-107) mmol/L Carbon Dioxide 26 (22-32) mmol/L BUN 12 (7-17) mg/dL Creatinine 0.70 (0.52-1.04) mg/dL Estimated GFR > 60 (>60) mL/min BUN/Creatinine Ratio 17.1 (6-22) Glucose 174 H (70-100) mg/dL Lactate (0.7-2.1) mmol/L Calcium 7.0 L (8.4-10.2) mg/dL Magnesium 2.1 (1.6-2.3) mg/dL Total Bilirubin 0.3 (0.2-1.3) mg/dL AST 115 H (14-36) IU/L ALT 80 H (<35) IU/L Alkaline Phosphatase 124 (38-126) U/L Total Creatine Kinase (30-135) U/L CK-MB (CK-2) CK-MB (CK-2) Rel Index Troponin I 3.540 H* (0.01-0.034) ng/mL NT-Pro-B Natriuret Pep (<125) pg/mL Total Protein 5.4 L (6.3-8.2) g/dL Albumin 3.0 L (3.5-5.0) g/dL Globulin 2.4 (1.7-4.1) g/dL Albumin/Globulin Ratio 1.3 (1.0-2.8) Lipase (23-300) U/L Procalcitonin (<0.5) ng/mL Urine Color Urine Appearance Urine pH (4.5-8.0) Ur Specific [place] (1.000-1.035) Urine Protein (Negative) Urine Glucose (UA) (Negative) g/dL Urine Ketones (NEGATIVE) Urine Occult Blood (Negative) Urine Nitrate (Negative) Urine Bilirubin (NEGATIVE) Urine Urobilinogen (0.2) E.U./dL Ur Leukocyte Esterase (NEGATIVE) Urine RBC (0-5/HPF) Urine WBC (0-5/HPF) Amorphous Sediment Urine Bacteria (None) Ur Culture Indicated? U Opiates 300ng/mL cut (Negative) Ur Oxycodone Screen (Negative) Urine Methadone Screen (Negative) Ur Barbiturates Screen (Negative) U Tricyclic Antidepress (Negative) Ur Phencyclidine Scrn (Negative) Ur Amphetamines Screen (Negative) U Methamphetamines Scrn (Negative) Ur MDMA Scrn (Ecstasy) (Negative) U Benzodiazepines Scrn (Negative) Urine Cocaine Screen (Negative) U Marijuana (THC) Screen (Negative) Ethyl Alcohol ( - 10) mg/dL SARS-CoV-2 (PCR) (Negative) Influenza A (RT-PCR) (NEGATIVE) Influenza B (RT-PCR) (NEGATIVE) RSV (PCR) (Negative) 10/09/22 10/09/22 10/09/22 Range/Units 07:30 07:30 07:30 WBC 6.3 (4.5-11.0) X10^3/uL RBC 3.76 L (4.0-5.2) X10^6/uL Hgb 10.5 L (12.0-16.0) g/dL Hct 32.2 L (36-46) % MCV 85.5 (80-100) fL MCH 27.9 (26-34) PG MCHC 32.7 (30-36) % RDW 19.2 H (11.6-14.8) % Plt Count 136 L (150-400) X10^3/uL Neut % (Auto) 74.2 (50-75) % Lymph % (Auto) 19.0 L (25-40) % [place] % (Auto) 6.1 (3-14) % Eos % (Auto) 0.2 L (2-4) % Baso % (Auto) 0.5 (0-2) % Neut # (Auto) 4700 (3138-2649) /uL Lymph # (Auto) 1200 (4287-2267) /uL [place] # (Auto) 400 (0-900) /uL Eos # (Auto) 0 (0-450) /uL Baso # (Auto) 0 (0-100) /uL PT 14.3 H (10.1-12.7) SECONDS INR 1.2 (0.9-1.3) APTT (26-36) SECONDS ABG pH (7.35-7.45) ABG pCO2 (35-45) mmHg ABG pO2 (80-100) mmHg ABG HCO3 (22-26) mmol/L ABG Total CO2 (21-31) mmol/L ABG O2 Saturation (95-100) % ABG Base Excess (-2-2) mmol/L FiO2 Sodium (137-145) mmol/L Potassium (3.4-5.1) mmol/L Chloride (98-107) mmol/L Carbon Dioxide (22-32) mmol/L BUN (7-17) mg/dL Creatinine (0.52-1.04) mg/dL Estimated GFR (>60) mL/min BUN/Creatinine Ratio (6-22) Glucose (70-100) mg/dL Lactate (0.7-2.1) mmol/L Calcium (8.4-10.2) mg/dL Magnesium (1.6-2.3) mg/dL Total Bilirubin (0.2-1.3) mg/dL AST (14-36) IU/L ALT (<35) IU/L Alkaline Phosphatase (38-126) U/L Total Creatine Kinase (30-135) U/L CK-MB (CK-2) CK-MB (CK-2) Rel Index Troponin I 3.520 H* (0.01-0.034) ng/mL NT-Pro-B Natriuret Pep (<125) pg/mL Total Protein (6.3-8.2) g/dL Albumin (3.5-5.0) g/dL Globulin (1.7-4.1) g/dL Albumin/Globulin Ratio (1.0-2.8) Lipase (23-300) U/L Procalcitonin (<0.5) ng/mL Urine Color Urine Appearance Urine pH (4.5-8.0) Ur Specific [place] (1.000-1.035) Urine Protein (Negative) Urine Glucose (UA) (Negative) g/dL Urine Ketones (NEGATIVE) Urine Occult Blood (Negative) Urine Nitrate (Negative) Urine Bilirubin (NEGATIVE) Urine Urobilinogen (0.2) E.U./dL Ur Leukocyte Esterase (NEGATIVE) Urine RBC (0-5/HPF) Urine WBC (0-5/HPF) Amorphous Sediment Urine Bacteria (None) Ur Culture Indicated? U Opiates 300ng/mL cut (Negative) Ur Oxycodone Screen (Negative) Urine Methadone Screen (Negative) Ur Barbiturates Screen (Negative) U Tricyclic Antidepress (Negative) Ur Phencyclidine Scrn (Negative) Ur Amphetamines Screen (Negative) U Methamphetamines Scrn (Negative) Ur MDMA Scrn (Ecstasy) (Negative) U Benzodiazepines Scrn (Negative) Urine Cocaine Screen (Negative) U Marijuana (THC) Screen (Negative) Ethyl Alcohol ( - 10) mg/dL SARS-CoV-2 (PCR) (Negative) Influenza A (RT-PCR) (NEGATIVE) Influenza B (RT-PCR) (NEGATIVE) RSV (PCR) (Negative) 10/09/22 10/09/22 10/09/22 Range/Units 07:30 07:30 07:30 WBC (4.5-11.0) X10^3/uL RBC (4.0-5.2) X10^6/uL Hgb (12.0-16.0) g/dL Hct (36-46) % MCV (80-100) fL MCH (26-34) PG MCHC (30-36) % RDW (11.6-14.8) % Plt Count (150-400) X10^3/uL Neut % (Auto) (50-75) % Lymph % (Auto) (25-40) % [place] % (Auto) (3-14) % Eos % (Auto) (2-4) % Baso % (Auto) (0-2) % Neut # (Auto) (8065-1448) /uL Lymph # (Auto) (2524-8205) /uL [place] # (Auto) (0-900) /uL Eos # (Auto) (0-450) /uL Baso # (Auto) (0-100) /uL PT (10.1-12.7) SECONDS INR (0.9-1.3) APTT 56 H D (26-36) SECONDS ABG pH (7.35-7.45) ABG pCO2 (35-45) mmHg ABG pO2 (80-100) mmHg ABG HCO3 (22-26) mmol/L ABG Total CO2 (21-31) mmol/L ABG O2 Saturation (95-100) % ABG Base Excess (-2-2) mmol/L FiO2 Sodium 137 (137-145) mmol/L Potassium 3.7 (3.4-5.1) mmol/L Chloride 106 (98-107) mmol/L Carbon Dioxide 29 (22-32) mmol/L BUN 12 (7-17) mg/dL Creatinine 0.65 (0.52-1.04) mg/dL Estimated GFR > 60 (>60) mL/min BUN/Creatinine Ratio 18.5 (6-22) Glucose 117 H (70-100) mg/dL Lactate 0.8 (0.7-2.1) mmol/L Calcium 7.0 L (8.4-10.2) mg/dL Magnesium (1.6-2.3) mg/dL Total Bilirubin 0.3 (0.2-1.3) mg/dL AST 136 H (14-36) IU/L ALT 112 H (<35) IU/L Alkaline Phosphatase 121 (38-126) U/L Total Creatine Kinase (30-135) U/L CK-MB (CK-2) CK-MB (CK-2) Rel Index Troponin I (0.01-0.034) ng/mL NT-Pro-B Natriuret Pep (<125) pg/mL Total Protein 5.1 L (6.3-8.2) g/dL Albumin 2.8 L (3.5-5.0) g/dL Globulin 2.3 (1.7-4.1) g/dL Albumin/Globulin Ratio 1.2 (1.0-2.8) Lipase 62 (23-300) U/L Procalcitonin 0.12 (<0.5) ng/mL Urine Color Urine Appearance Urine pH (4.5-8.0) Ur Specific [place] (1.000-1.035) Urine Protein (Negative) Urine Glucose (UA) (Negative) g/dL Urine Ketones (NEGATIVE) Urine Occult Blood (Negative) Urine Nitrate (Negative) Urine Bilirubin (NEGATIVE) Urine Urobilinogen (0.2) E.U./dL Ur Leukocyte Esterase (NEGATIVE) Urine RBC (0-5/HPF) Urine WBC (0-5/HPF) Amorphous Sediment Urine Bacteria (None) Ur Culture Indicated? U Opiates 300ng/mL cut (Negative) Ur Oxycodone Screen (Negative) Urine Methadone Screen (Negative) Ur Barbiturates Screen (Negative) U Tricyclic Antidepress (Negative) Ur Phencyclidine Scrn (Negative) Ur Amphetamines Screen (Negative) U Methamphetamines Scrn (Negative) Ur MDMA Scrn (Ecstasy) (Negative) U Benzodiazepines Scrn (Negative) Urine Cocaine Screen (Negative) U Marijuana (THC) Screen (Negative) Ethyl Alcohol ( - 10) mg/dL SARS-CoV-2 (PCR) (Negative) Influenza A (RT-PCR) (NEGATIVE) Influenza B (RT-PCR) (NEGATIVE) RSV (PCR) (Negative) 10/09/22 10/09/22 10/10/22 Range/Units 13:30 19:25 01:39 WBC (4.5-11.0) X10^3/uL RBC (4.0-5.2) X10^6/uL Hgb (12.0-16.0) g/dL Hct (36-46) % MCV (80-100) fL MCH (26-34) PG MCHC (30-36) % RDW (11.6-14.8) % Plt Count (150-400) X10^3/uL Neut % (Auto) (50-75) % Lymph % (Auto) (25-40) % [place] % (Auto) (3-14) % Eos % (Auto) (2-4) % Baso % (Auto) (0-2) % Neut # (Auto) (9436-8807) /uL Lymph # (Auto) (5198-1393) /uL [place] # (Auto) (0-900) /uL Eos # (Auto) (0-450) /uL Baso # (Auto) (0-100) /uL PT (10.1-12.7) SECONDS INR (0.9-1.3) APTT 50 H 50 H 43 H (26-36) SECONDS ABG pH (7.35-7.45) ABG pCO2 (35-45) mmHg ABG pO2 (80-100) mmHg ABG HCO3 (22-26) mmol/L ABG Total CO2 (21-31) mmol/L ABG O2 Saturation (95-100) % ABG Base Excess (-2-2) mmol/L FiO2 Sodium (137-145) mmol/L Potassium (3.4-5.1) mmol/L Chloride (98-107) mmol/L Carbon Dioxide (22-32) mmol/L BUN (7-17) mg/dL Creatinine (0.52-1.04) mg/dL Estimated GFR (>60) mL/min BUN/Creatinine Ratio (6-22) Glucose (70-100) mg/dL Lactate (0.7-2.1) mmol/L Calcium (8.4-10.2) mg/dL Magnesium (1.6-2.3) mg/dL Total Bilirubin (0.2-1.3) mg/dL AST (14-36) IU/L ALT (<35) IU/L Alkaline Phosphatase (38-126) U/L Total Creatine Kinase (30-135) U/L CK-MB (CK-2) CK-MB (CK-2) Rel Index Troponin I (0.01-0.034) ng/mL NT-Pro-B Natriuret Pep (<125) pg/mL Total Protein (6.3-8.2) g/dL Albumin (3.5-5.0) g/dL Globulin (1.7-4.1) g/dL Albumin/Globulin Ratio (1.0-2.8) Lipase (23-300) U/L Procalcitonin (<0.5) ng/mL Urine Color Urine Appearance Urine pH (4.5-8.0) Ur Specific [place] (1.000-1.035) Urine Protein (Negative) Urine Glucose (UA) (Negative) g/dL Urine Ketones (NEGATIVE) Urine Occult Blood (Negative) Urine Nitrate (Negative) Urine Bilirubin (NEGATIVE) Urine Urobilinogen (0.2) E.U./dL Ur Leukocyte Esterase (NEGATIVE) Urine RBC (0-5/HPF) Urine WBC (0-5/HPF) Amorphous Sediment Urine Bacteria (None) Ur Culture Indicated? U Opiates 300ng/mL cut (Negative) Ur Oxycodone Screen (Negative) Urine Methadone Screen (Negative) Ur Barbiturates Screen (Negative) U Tricyclic Antidepress (Negative) Ur Phencyclidine Scrn (Negative) Ur Amphetamines Screen (Negative) U Methamphetamines Scrn (Negative) Ur MDMA Scrn (Ecstasy) (Negative) U Benzodiazepines Scrn (Negative) Urine Cocaine Screen (Negative) U Marijuana (THC) Screen (Negative) Ethyl Alcohol ( - 10) mg/dL SARS-CoV-2 (PCR) (Negative) Influenza A (RT-PCR) (NEGATIVE) Influenza B (RT-PCR) (NEGATIVE) RSV (PCR) (Negative) 10/10/22 10/10/22 10/10/22 Range/Units 06:20 06:20 06:20 WBC 4.1 L (4.5-11.0) X10^3/uL RBC 3.59 L (4.0-5.2) X10^6/uL Hgb 9.9 L (12.0-16.0) g/dL Hct 30.4 L (36-46) % MCV 84.7 (80-100) fL MCH 27.5 (26-34) PG MCHC 32.5 (30-36) % RDW 18.8 H (11.6-14.8) % Plt Count 114 L (150-400) X10^3/uL Neut % (Auto) 59.3 (50-75) % Lymph % (Auto) 32.2 (25-40) % [place] % (Auto) 7.7 (3-14) % Eos % (Auto) 0.2 L (2-4) % Baso % (Auto) 0.6 (0-2) % Neut # (Auto) 2400 (7566-3496) /uL Lymph # (Auto) 1300 (3205-2586) /uL [place] # (Auto) 300 (0-900) /uL Eos # (Auto) 0 (0-450) /uL Baso # (Auto) 0 (0-100) /uL PT (10.1-12.7) SECONDS INR (0.9-1.3) APTT 44 H (26-36) SECONDS ABG pH (7.35-7.45) ABG pCO2 (35-45) mmHg ABG pO2 (80-100) mmHg ABG HCO3 (22-26) mmol/L ABG Total CO2 (21-31) mmol/L ABG O2 Saturation (95-100) % ABG Base Excess (-2-2) mmol/L FiO2 Sodium 138 (137-145) mmol/L Potassium 3.3 L (3.4-5.1) mmol/L Chloride 105 (98-107) mmol/L Carbon Dioxide 31 (22-32) mmol/L BUN 7 (7-17) mg/dL Creatinine 0.58 (0.52-1.04) mg/dL Estimated GFR > 60 (>60) mL/min BUN/Creatinine Ratio 12.1 (6-22) Glucose 97 (70-100) mg/dL Lactate (0.7-2.1) mmol/L Calcium 7.6 L (8.4-10.2) mg/dL Magnesium (1.6-2.3) mg/dL Total Bilirubin 0.3 (0.2-1.3) mg/dL AST 202 H (14-36) IU/L ALT 260 H (<35) IU/L Alkaline Phosphatase 114 (38-126) U/L Total Creatine Kinase (30-135) U/L CK-MB (CK-2) CK-MB (CK-2) Rel Index Troponin I 1.600 H* (0.01-0.034) ng/mL NT-Pro-B Natriuret Pep 1530 H (<125) pg/mL Total Protein 5.1 L (6.3-8.2) g/dL Albumin 2.8 L (3.5-5.0) g/dL Globulin 2.3 (1.7-4.1) g/dL Albumin/Globulin Ratio 1.2 (1.0-2.8) Lipase (23-300) U/L Procalcitonin (<0.5) ng/mL Urine Color Urine Appearance Urine pH (4.5-8.0) Ur Specific [place] (1.000-1.035) Urine Protein (Negative) Urine Glucose (UA) (Negative) g/dL Urine Ketones (NEGATIVE) Urine Occult Blood (Negative) Urine Nitrate (Negative) Urine Bilirubin (NEGATIVE) Urine Urobilinogen (0.2) E.U./dL Ur Leukocyte Esterase (NEGATIVE) Urine RBC (0-5/HPF) Urine WBC (0-5/HPF) Amorphous Sediment Urine Bacteria (None) Ur Culture Indicated? U Opiates 300ng/mL cut (Negative) Ur Oxycodone Screen (Negative) Urine Methadone Screen (Negative) Ur Barbiturates Screen (Negative) U Tricyclic Antidepress (Negative) Ur Phencyclidine Scrn (Negative) Ur Amphetamines Screen (Negative) U Methamphetamines Scrn (Negative) Ur MDMA Scrn (Ecstasy) (Negative) U Benzodiazepines Scrn (Negative) Urine Cocaine Screen (Negative) U Marijuana (THC) Screen (Negative) Ethyl Alcohol ( - 10) mg/dL SARS-CoV-2 (PCR) (Negative) Influenza A (RT-PCR) (NEGATIVE) Influenza B (RT-PCR) (NEGATIVE) RSV (PCR) (Negative) 10/10/22 10/10/22 10/10/22 Range/Units 12:16 12:16 18:29 WBC (4.5-11.0) X10^3/uL RBC (4.0-5.2) X10^6/uL Hgb (12.0-16.0) g/dL Hct (36-46) % MCV (80-100) fL MCH (26-34) PG MCHC (30-36) % RDW (11.6-14.8) % Plt Count (150-400) X10^3/uL Neut % (Auto) (50-75) % Lymph % (Auto) (25-40) % [place] % (Auto) (3-14) % Eos % (Auto) (2-4) % Baso % (Auto) (0-2) % Neut # (Auto) (9081-6161) /uL Lymph # (Auto) (5927-4663) /uL [place] # (Auto) (0-900) /uL Eos # (Auto) (0-450) /uL Baso # (Auto) (0-100) /uL PT (10.1-12.7) SECONDS INR (0.9-1.3) APTT 46 H 46 H (26-36) SECONDS ABG pH (7.35-7.45) ABG pCO2 (35-45) mmHg ABG pO2 (80-100) mmHg ABG HCO3 (22-26) mmol/L ABG Total CO2 (21-31) mmol/L ABG O2 Saturation (95-100) % ABG Base Excess (-2-2) mmol/L FiO2 Sodium (137-145) mmol/L Potassium (3.4-5.1) mmol/L Chloride (98-107) mmol/L Carbon Dioxide (22-32) mmol/L BUN (7-17) mg/dL Creatinine (0.52-1.04) mg/dL Estimated GFR (>60) mL/min BUN/Creatinine Ratio (6-22) Glucose (70-100) mg/dL Lactate (0.7-2.1) mmol/L Calcium (8.4-10.2) mg/dL Magnesium 1.5 L (1.6-2.3) mg/dL Total Bilirubin (0.2-1.3) mg/dL AST (14-36) IU/L ALT (<35) IU/L Alkaline Phosphatase (38-126) U/L Total Creatine Kinase (30-135) U/L CK-MB (CK-2) CK-MB (CK-2) Rel Index Troponin I (0.01-0.034) ng/mL NT-Pro-B Natriuret Pep (<125) pg/mL Total Protein (6.3-8.2) g/dL Albumin (3.5-5.0) g/dL Globulin (1.7-4.1) g/dL Albumin/Globulin Ratio (1.0-2.8) Lipase (23-300) U/L Procalcitonin (<0.5) ng/mL Urine Color Urine Appearance Urine pH (4.5-8.0) Ur Specific [place] (1.000-1.035) Urine Protein (Negative) Urine Glucose (UA) (Negative) g/dL Urine Ketones (NEGATIVE) Urine Occult Blood (Negative) Urine Nitrate (Negative) Urine Bilirubin (NEGATIVE) Urine Urobilinogen (0.2) E.U./dL Ur Leukocyte Esterase (NEGATIVE) Urine RBC (0-5/HPF) Urine WBC (0-5/HPF) Amorphous Sediment Urine Bacteria (None) Ur Culture Indicated? U Opiates 300ng/mL cut (Negative) Ur Oxycodone Screen (Negative) Urine Methadone Screen (Negative) Ur Barbiturates Screen (Negative) U Tricyclic Antidepress (Negative) Ur Phencyclidine Scrn (Negative) Ur Amphetamines Screen (Negative) U Methamphetamines Scrn (Negative) Ur MDMA Scrn (Ecstasy) (Negative) U Benzodiazepines Scrn (Negative) Urine Cocaine Screen (Negative) U Marijuana (THC) Screen (Negative) Ethyl Alcohol ( - 10) mg/dL SARS-CoV-2 (PCR) (Negative) Influenza A (RT-PCR) (NEGATIVE) Influenza B (RT-PCR) (NEGATIVE) RSV (PCR) (Negative) 10/11/22 10/11/22 10/11/22 Range/Units 01:00 06:07 06:07 WBC 3.9 L (4.5-11.0) X10^3/uL RBC 3.07 L (4.0-5.2) X10^6/uL Hgb 8.6 L (12.0-16.0) g/dL Hct 25.8 L (36-46) % MCV 84.3 (80-100) fL MCH 28.2 (26-34) PG MCHC 33.4 (30-36) % RDW 18.2 H (11.6-14.8) % Plt Count 105 L (150-400) X10^3/uL Neut % (Auto) 57.5 (50-75) % Lymph % (Auto) 32.9 (25-40) % [place] % (Auto) 9.2 (3-14) % Eos % (Auto) 0.2 L (2-4) % Baso % (Auto) 0.2 (0-2) % Neut # (Auto) 2200 (0876-6210) /uL Lymph # (Auto) 1300 (5815-4988) /uL [place] # (Auto) 400 (0-900) /uL Eos # (Auto) 0 (0-450) /uL Baso # (Auto) 0 (0-100) /uL PT (10.1-12.7) SECONDS INR (0.9-1.3) APTT 55 H D (26-36) SECONDS ABG pH (7.35-7.45) ABG pCO2 (35-45) mmHg ABG pO2 (80-100) mmHg ABG HCO3 (22-26) mmol/L ABG Total CO2 (21-31) mmol/L ABG O2 Saturation (95-100) % ABG Base Excess (-2-2) mmol/L FiO2 Sodium 137 (137-145) mmol/L Potassium 3.3 L (3.4-5.1) mmol/L Chloride 112 H (98-107) mmol/L Carbon Dioxide 24 (22-32) mmol/L BUN 4 L (7-17) mg/dL Creatinine 0.48 L (0.52-1.04) mg/dL Estimated GFR > 60 (>60) mL/min BUN/Creatinine Ratio 8.3 (6-22) Glucose 84 (70-100) mg/dL Lactate (0.7-2.1) mmol/L Calcium 6.5 L (8.4-10.2) mg/dL Magnesium (1.6-2.3) mg/dL Total Bilirubin 0.2 (0.2-1.3) mg/dL AST 96 H (14-36) IU/L ALT 210 H (<35) IU/L Alkaline Phosphatase 93 (38-126) U/L Total Creatine Kinase (30-135) U/L CK-MB (CK-2) CK-MB (CK-2) Rel Index Troponin I 0.857 H* (0.01-0.034) ng/mL NT-Pro-B Natriuret Pep (<125) pg/mL Total Protein 4.4 L (6.3-8.2) g/dL Albumin 2.3 L (3.5-5.0) g/dL Globulin 2.1 (1.7-4.1) g/dL Albumin/Globulin Ratio 1.1 (1.0-2.8) Lipase (23-300) U/L Procalcitonin (<0.5) ng/mL Urine Color Urine Appearance Urine pH (4.5-8.0) Ur Specific [place] (1.000-1.035) Urine Protein (Negative) Urine Glucose (UA) (Negative) g/dL Urine Ketones (NEGATIVE) Urine Occult Blood (Negative) Urine Nitrate (Negative) Urine Bilirubin (NEGATIVE) Urine Urobilinogen (0.2) E.U./dL Ur Leukocyte Esterase (NEGATIVE) Urine RBC (0-5/HPF) Urine WBC (0-5/HPF) Amorphous Sediment Urine Bacteria (None) Ur Culture Indicated? U Opiates 300ng/mL cut (Negative) Ur Oxycodone Screen (Negative) Urine Methadone Screen (Negative) Ur Barbiturates Screen (Negative) U Tricyclic Antidepress (Negative) Ur Phencyclidine Scrn (Negative) Ur Amphetamines Screen (Negative) U Methamphetamines Scrn (Negative) Ur MDMA Scrn (Ecstasy) (Negative) U Benzodiazepines Scrn (Negative) Urine Cocaine Screen (Negative) U Marijuana (THC) Screen (Negative) Ethyl Alcohol ( - 10) mg/dL SARS-CoV-2 (PCR) (Negative) Influenza A (RT-PCR) (NEGATIVE) Influenza B (RT-PCR) (NEGATIVE) RSV (PCR) (Negative) 10/11/22 10/11/22 Range/Units 17:44 17:44 WBC 4.5 (4.5-11.0) X10^3/uL RBC 3.65 L (4.0-5.2) X10^6/uL Hgb 10.1 L (12.0-16.0) g/dL Hct 30.8 L (36-46) % MCV 84.4 (80-100) fL MCH 27.7 (26-34) PG MCHC 32.9 (30-36) % RDW 18.4 H (11.6-14.8) % Plt Count 128 L (150-400) X10^3/uL Neut % (Auto) 67.2 (50-75) % Lymph % (Auto) 22.9 L (25-40) % [place] % (Auto) 9.0 (3-14) % Eos % (Auto) 0.3 L (2-4) % Baso % (Auto) 0.6 (0-2) % Neut # (Auto) 3000 (3620-1618) /uL Lymph # (Auto) 1000 L (9451-9760) /uL [place] # (Auto) 400 (0-900) /uL Eos # (Auto) 0 (0-450) /uL Baso # (Auto) 0 (0-100) /uL PT (10.1-12.7) SECONDS INR (0.9-1.3) APTT (26-36) SECONDS ABG pH (7.35-7.45) ABG pCO2 (35-45) mmHg ABG pO2 (80-100) mmHg ABG HCO3 (22-26) mmol/L ABG Total CO2 (21-31) mmol/L ABG O2 Saturation (95-100) % ABG Base Excess (-2-2) mmol/L FiO2 Sodium 138 (137-145) mmol/L Potassium 4.4 (3.4-5.1) mmol/L Chloride 106 (98-107) mmol/L Carbon Dioxide 29 (22-32) mmol/L BUN 5 L (7-17) mg/dL Creatinine 0.60 (0.52-1.04) mg/dL Estimated GFR > 60 (>60) mL/min BUN/Creatinine Ratio 8.3 (6-22) Glucose 90 (70-100) mg/dL Lactate (0.7-2.1) mmol/L Calcium 8.0 L (8.4-10.2) mg/dL Magnesium 1.9 (1.6-2.3) mg/dL Total Bilirubin 0.3 (0.2-1.3) mg/dL AST 76 H (14-36) IU/L ALT 231 H (<35) IU/L Alkaline Phosphatase 120 (38-126) U/L Total Creatine Kinase (30-135) U/L CK-MB (CK-2) CK-MB (CK-2) Rel Index Troponin I (0.01-0.034) ng/mL NT-Pro-B Natriuret Pep (<125) pg/mL Total Protein 5.5 L (6.3-8.2) g/dL Albumin 3.1 L (3.5-5.0) g/dL Globulin 2.4 (1.7-4.1) g/dL Albumin/Globulin Ratio 1.3 (1.0-2.8) Lipase (23-300) U/L Procalcitonin (<0.5) ng/mL Urine Color Urine Appearance Urine pH (4.5-8.0) Ur Specific [place] (1.000-1.035) Urine Protein (Negative) Urine Glucose (UA) (Negative) g/dL Urine Ketones (NEGATIVE) Urine Occult Blood (Negative) Urine Nitrate (Negative) Urine Bilirubin (NEGATIVE) Urine Urobilinogen (0.2) E.U./dL Ur Leukocyte Esterase (NEGATIVE) Urine RBC (0-5/HPF) Urine WBC (0-5/HPF) Amorphous Sediment Urine Bacteria (None) Ur Culture Indicated? U Opiates 300ng/mL cut (Negative) Ur Oxycodone Screen (Negative) Urine Methadone Screen (Negative) Ur Barbiturates Screen (Negative) U Tricyclic Antidepress (Negative) Ur Phencyclidine Scrn (Negative) Ur Amphetamines Screen (Negative) U Methamphetamines Scrn (Negative) Ur MDMA Scrn (Ecstasy) (Negative) U Benzodiazepines Scrn (Negative) Urine Cocaine Screen (Negative) U Marijuana (THC) Screen (Negative) Ethyl Alcohol ( - 10) mg/dL SARS-CoV-2 (PCR) (Negative) Influenza A (RT-PCR) (NEGATIVE) Influenza B (RT-PCR) (NEGATIVE) RSV (PCR) (Negative) Point of Care Testing Stool Occult Blood Negative MDM Narrative Medical decision making narrative: This is a 57-year-old female who presented with possible flu-like symptoms patient had a cardiac arrest in the waiting room. Patient had approximately 10 minutes of CPR total, she received 1 mg of epi, amiodarone 300 mg apand pear to be in VFib she was defibrillated and cardioverted to AFib which ultimately became a sinus rhythm. Patient had almost immediate regain of pulses and within several minutes was conversant. Initial labs show low calcium, potassium is relatively normal she is had issues in the past. She appeared to be in VFib arrest, she responded well to diff fibrillation converted to AFib and is now conversant. Patient is able to give history, she also received epi 1 mg, amiodarone 300 mg continuing with 6 hour infusion. Patient has been persistently hypotensive initially was started norepinephrine but after conversation with Cardiology they recommend phenylephrine and changed over and patient has responded well maintaining a map greater than 65 but has had a systolic often in the 100 range. Patient received fluids she did not appear significantly fluid overloaded but is high risk. Her labs and imaging showed some mild electrolyte abnormalities with potassium of 3.3, calcium was also low, magnesium is technically normal but was recommended goals of potassium of greater than 4 and 2 for magnesium. Patient's ABG post CPR is essentially normal. Patient does not have any renal dysfunction, no significant anemia, normal LFTs otherwise, troponin on repeat did trend upwards but this could very easily be from cardiac shock and CPR will continue to trend. CTA shows pulmo nary artery hypertension possibly from enlarged main pulmonary artery, no PE or other clear cause CT abdomen pelvis also does not show a clear cause for her cardiac arrest today, she has multiple rib fractures from her CPR. Patient has had some pain she responds well to fentanyl. She has been oxygenating appropriately but has been on 2 L. patient's urine shows possible infection so she was covered with an antibiotic. Had multiple consultations with Cardiology through [facility] as well as Dr. Benavides at [facility]. No bed availability continuing to seek placement with [facility] through regional hotline. Dr. Bazan from Cardiology called back her stat echo shows a decrease in her EF to 35 % which is new from her priors as well as focal wall motion abnormalities he does recommend continue with aspirin, high-dose statin, heparin and needs transfer for cardiac catheterization in ICD placement. Patient signed out to Dr. Garcia select 11/14, patient has repeat labs pending this evening, plan to continue amiodarone, monitor electrolytes, phenylephrine and attempting to transfer. There is critical bed shortage in the region and patient has been placed on [facility] regional hotline list. Radha-patient signed out to me by Dr. Price. He was seen evaluated patient myself she. Sh presently awake alert and pleasant. She has no complaints. She actually did have a nonsustained run of V. She continues on amiodarone drip. Awaiting placement is. Troponin continues to rise. She is still requiring a touch of vasopressor to help with blood pressure support. EF 35-40%. Once IV amiodarone is done will likely need p.o. amiodarone. Significant bed critical shortage she is on multiple wait list and [facility] has been notified. Dr mercado 10/09/22: Received turned over. Review patient's history and physical and workup performed up to this point. Patient has been stable day. She is off of blood pressure medications. I did discuss the case with Dr. Thorne on-call for cardiology who recommended continuing the patient on amiodarone IV. We will hold on Lasix for now unless she develops fluid overload. Still attempting to find placement for patient. Care turned over to Dr. Miller to continue to observe overnight. Dr. Miller 10/09/22 1800 -patient received in sign-out. I have performed an independent physical exam. No significant changes over the night, signed out to Dr. Jess mercado: 10/10/22 received turned over had reviewed the 24 hour events for the patient. She continues to be stable. Late in the afternoon she stated that she was having some fluttering in her chest. There was no ectopy on the monitor. Repeat EKG shows sinus rhythm with a ventricular rate of 80. Her potassium and magnesium were replaced. Urine culture today resulted as no growth so her Rocephin was discontinued. She continues to be on amiodarone. She continues to be on the heparin drip. Care turned over to Dr. Barkley to continue to observe and disposition. Dr Barkley 10/12 6am in consultation with [facility] supervisor, patient is going to be transferred ED to ED to [facility] for definitive treatment of her VFib arrest. She is remained on amiodarone and heparin throughout her greater than 93 hour ED stay. Due to severe bed shortages across [facility], we have been temporizing care she is been doing fairly well at this time. Care is reviewed with Dr. Arun Ovalle, accepting emergency depart physician. ALS transport will be arranged. [facility] child development consultant have been involved with phone consultation throughout her stay and will be expecting her. <Jarad Lucas MD - Last Filed: 11/08/22 15:41> Lab Data Labs: Lab Results 10/08/22 10/08/22 10/08/22 Range/Units 10:03 10:11 10:11 WBC 4.6 (4.5-11.0) X10^3/uL RBC 4.21 (4.0-5.2) X10^6/uL Hgb 11.7 L (12.0-16.0) g/dL Hct 35.9 L (36-46) % MCV 85.3 (80-100) fL MCH 27.7 (26-34) PG MCHC 32.5 (30-36) % RDW 19.3 H (11.6-14.8) % Plt Count 182 (150-400) X10^3/uL Neut % (Auto) 69.7 (50-75) % Lymph % (Auto) 22.1 L (25-40) % [place] % (Auto) 7.9 (3-14) % Eos % (Auto) 0.1 L (2-4) % Baso % (Auto) 0.2 (0-2) % Neut # (Auto) 3200 (4018-5714) /uL Lymph # (Auto) 1000 L (0527-1410) /uL [place] # (Auto) 400 (0-900) /uL Eos # (Auto) 0 (0-450) /uL Baso # (Auto) 0 (0-100) /uL PT (10.1-12.7) SECONDS INR (0.9-1.3) APTT (26-36) SECONDS ABG pH (7.35-7.45) ABG pCO2 (35-45) mmHg ABG pO2 (80-100) mmHg ABG HCO3 (22-26) mmol/L ABG Total CO2 (21-31) mmol/L ABG O2 Saturation (95-100) % ABG Base Excess (-2-2) mmol/L FiO2 Sodium 143 (137-145) mmol/L Potassium 3.3 L (3.4-5.1) mmol/L Chloride 104 (98-107) mmol/L Carbon Dioxide 34 H (22-32) mmol/L BUN 12 (7-17) mg/dL Creatinine 0.60 (0.52-1.04) mg/dL Estimated GFR > 60 (>60) mL/min BUN/Creatinine Ratio 20.0 (6-22) Glucose 95 (70-100) mg/dL Lactate (0.7-2.1) mmol/L Calcium 7.9 L (8.4-10.2) mg/dL Magnesium (1.6-2.3) mg/dL Total Bilirubin 0.3 (0.2-1.3) mg/dL AST 18 (14-36) IU/L ALT 15 (<35) IU/L Alkaline Phosphatase 104 (38-126) U/L Total Creatine Kinase (30-135) U/L CK-MB (CK-2) CK-MB (CK-2) Rel Index Troponin I (0.01-0.034) ng/mL NT-Pro-B Natriuret Pep (<125) pg/mL Total Protein 6.4 (6.3-8.2) g/dL Albumin 3.5 (3.5-5.0) g/dL Globulin 2.9 (1.7-4.1) g/dL Albumin/Globulin Ratio 1.2 (1.0-2.8) Lipase 45 (23-300) U/L Procalcitonin < 0.03 (<0.5) ng/mL Urine Color Urine Appearance Urine pH (4.5-8.0) Ur Specific [place] (1.000-1.035) Urine Protein (Negative) Urine Glucose (UA) (Negative) g/dL Urine Ketones (NEGATIVE) Urine Occult Blood (Negative) Urine Nitrate (Negative) Urine Bilirubin (NEGATIVE) Urine Urobilinogen (0.2) E.U./dL Ur Leukocyte Esterase (NEGATIVE) Urine RBC (0-5/HPF) Urine WBC (0-5/HPF) Amorphous Sediment Urine Bacteria (None) Ur Culture Indicated? U Opiates 300ng/mL cut (Negative) Ur Oxycodone Screen (Negative) Urine Methadone Screen (Negative) Ur Barbiturates Screen (Negative) U Tricyclic Antidepress (Negative) Ur Phencyclidine Scrn (Negative) Ur Amphetamines Screen (Negative) U Methamphetamines Scrn (Negative) Ur MDMA Scrn (Ecstasy) (Negative) U Benzodiazepines Scrn (Negative) Urine Cocaine Screen (Negative) U Marijuana (THC) Screen (Negative) Ethyl Alcohol ( - 10) mg/dL SARS-CoV-2 (PCR) Negative (Negative) Influenza A (RT-PCR) Flu a negative (NEGATIVE) Influenza B (RT-PCR) Flu b negative (NEGATIVE) RSV (PCR) Negative (Negative) 10/08/22 10/08/22 10/08/22 Range/Units 10:11 10:11 10:11 WBC (4.5-11.0) X10^3/uL RBC (4.0-5.2) X10^6/uL Hgb (12.0-16.0) g/dL Hct (36-46) % MCV (80-100) fL MCH (26-34) PG MCHC (30-36) % RDW (11.6-14.8) % Plt Count (150-400) X10^3/uL Neut % (Auto) (50-75) % Lymph % (Auto) (25-40) % [place] % (Auto) (3-14) % Eos % (Auto) (2-4) % Baso % (Auto) (0-2) % Neut # (Auto) (6845-0029) /uL Lymph # (Auto) (3831-0299) /uL [place] # (Auto) (0-900) /uL Eos # (Auto) (0-450) /uL Baso # (Auto) (0-100) /uL PT 11.3 (10.1-12.7) SECONDS INR 1.0 (0.9-1.3) APTT 29 (26-36) SECONDS ABG pH (7.35-7.45) ABG pCO2 (35-45) mmHg ABG pO2 (80-100) mmHg ABG HCO3 (22-26) mmol/L ABG Total CO2 (21-31) mmol/L ABG O2 Saturation (95-100) % ABG Base Excess (-2-2) mmol/L FiO2 Sodium (137-145) mmol/L Potassium (3.4-5.1) mmol/L Chloride (98-107) mmol/L Carbon Dioxide (22-32) mmol/L BUN (7-17) mg/dL Creatinine (0.52-1.04) mg/dL Estimated GFR (>60) mL/min BUN/Creatinine Ratio (6-22) Glucose (70-100) mg/dL Lactate 1.0 (0.7-2.1) mmol/L Calcium (8.4-10.2) mg/dL Magnesium (1.6-2.3) mg/dL Total Bilirubin (0.2-1.3) mg/dL AST (14-36) IU/L ALT (<35) IU/L Alkaline Phosphatase (38-126) U/L Total Creatine Kinase 32 (30-135) U/L CK-MB (CK-2) TNP CK-MB (CK-2) Rel Index TNP Troponin I < 0.012 (0.01-0.034) ng/mL NT-Pro-B Natriuret Pep 240 H (<125) pg/mL Total Protein (6.3-8.2) g/dL Albumin (3.5-5.0) g/dL Globulin (1.7-4.1) g/dL Albumin/Globulin Ratio (1.0-2.8) Lipase (23-300) U/L Procalcitonin (<0.5) ng/mL Urine Color Urine Appearance Urine pH (4.5-8.0) Ur Specific [place] (1.000-1.035) Urine Protein (Negative) Urine Glucose (UA) (Negative) g/dL Urine Ketones (NEGATIVE) Urine Occult Blood (Negative) Urine Nitrate (Negative) Urine Bilirubin (NEGATIVE) Urine Urobilinogen (0.2) E.U./dL Ur Leukocyte Esterase (NEGATIVE) Urine RBC (0-5/HPF) Urine WBC (0-5/HPF) Amorphous Sediment Urine Bacteria (None) Ur Culture Indicated? U Opiates 300ng/mL cut (Negative) Ur Oxycodone Screen (Negative) Urine Methadone Screen (Negative) Ur Barbiturates Screen (Negative) U Tricyclic Antidepress (Negative) Ur Phencyclidine Scrn (Negative) Ur Amphetamines Screen (Negative) U Methamphetamines Scrn (Negative) Ur MDMA Scrn (Ecstasy) (Negative) U Benzodiazepines Scrn (Negative) Urine Cocaine Screen (Negative) U Marijuana (THC) Screen (Negative) Ethyl Alcohol ( - 10) mg/dL SARS-CoV-2 (PCR) (Negative) Influenza A (RT-PCR) (NEGATIVE) Influenza B (RT-PCR) (NEGATIVE) RSV (PCR) (Negative) 10/08/22 10/08/22 10/08/22 Range/Units 10:11 10:43 12:50 WBC (4.5-11.0) X10^3/uL RBC (4.0-5.2) X10^6/uL Hgb (12.0-16.0) g/dL Hct (36-46) % MCV (80-100) fL MCH (26-34) PG MCHC (30-36) % RDW (11.6-14.8) % Plt Count (150-400) X10^3/uL Neut % (Auto) (50-75) % Lymph % (Auto) (25-40) % [place] % (Auto) (3-14) % Eos % (Auto) (2-4) % Baso % (Auto) (0-2) % Neut # (Auto) (9194-7581) /uL Lymph # (Auto) (3263-9410) /uL [place] # (Auto) (0-900) /uL Eos # (Auto) (0-450) /uL Baso # (Auto) (0-100) /uL PT (10.1-12.7) SECONDS INR (0.9-1.3) APTT (26-36) SECONDS ABG pH 7.40 (7.35-7.45) ABG pCO2 37.3 (35-45) mmHg ABG pO2 144 H (80-100) mmHg ABG HCO3 23 (22-26) mmol/L ABG Total CO2 24 (21-31) mmol/L ABG O2 Saturation 99 (95-100) % ABG Base Excess -2.0 (-2-2) mmol/L FiO2 80 Sodium (137-145) mmol/L Potassium (3.4-5.1) mmol/L Chloride (98-107) mmol/L Carbon Dioxide (22-32) mmol/L BUN (7-17) mg/dL Creatinine (0.52-1.04) mg/dL Estimated GFR (>60) mL/min BUN/Creatinine Ratio (6-22) Glucose (70-100) mg/dL Lactate 1.4 (0.7-2.1) mmol/L Calcium (8.4-10.2) mg/dL Magnesium 1.8 (1.6-2.3) mg/dL Total Bilirubin (0.2-1.3) mg/dL AST (14-36) IU/L ALT (<35) IU/L Alkaline Phosphatase (38-126) U/L Total Creatine Kinase (30-135) U/L CK-MB (CK-2) CK-MB (CK-2) Rel Index Troponin I (0.01-0.034) ng/mL NT-Pro-B Natriuret Pep (<125) pg/mL Total Protein (6.3-8.2) g/dL Albumin (3.5-5.0) g/dL Globulin (1.7-4.1) g/dL Albumin/Globulin Ratio (1.0-2.8) Lipase (23-300) U/L Procalcitonin (<0.5) ng/mL Urine Color Urine Appearance Urine pH (4.5-8.0) Ur Specific [place] (1.000-1.035) Urine Protein (Negative) Urine Glucose (UA) (Negative) g/dL Urine Ketones (NEGATIVE) Urine Occult Blood (Negative) Urine Nitrate (Negative) Urine Bilirubin (NEGATIVE) Urine Urobilinogen (0.2) E.U./dL Ur Leukocyte Esterase (NEGATIVE) Urine RBC (0-5/HPF) Urine WBC (0-5/HPF) Amorphous Sediment Urine Bacteria (None) Ur Culture Indicated? U Opiates 300ng/mL cut (Negative) Ur Oxycodone Screen (Negative) Urine Methadone Screen (Negative) Ur Barbiturates Screen (Negative) U Tricyclic Antidepress (Negative) Ur Phencyclidine Scrn (Negative) Ur Amphetamines Screen (Negative) U Methamphetamines Scrn (Negative) Ur MDMA Scrn (Ecstasy) (Negative) U Benzodiazepines Scrn (Negative) Urine Cocaine Screen (Negative) U Marijuana (THC) Screen (Negative) Ethyl Alcohol ( - 10) mg/dL SARS-CoV-2 (PCR) (Negative) Influenza A (RT-PCR) (NEGATIVE) Influenza B (RT-PCR) (NEGATIVE) RSV (PCR) (Negative) 10/08/22 10/08/22 10/08/22 Range/Units 12:50 12:50 12:50 WBC (4.5-11.0) X10^3/uL RBC (4.0-5.2) X10^6/uL Hgb (12.0-16.0) g/dL Hct (36-46) % MCV (80-100) fL MCH (26-34) PG MCHC (30-36) % RDW (11.6-14.8) % Plt Count (150-400) X10^3/uL Neut % (Auto) (50-75) % Lymph % (Auto) (25-40) % [place] % (Auto) (3-14) % Eos % (Auto) (2-4) % Baso % (Auto) (0-2) % Neut # (Auto) (7251-6628) /uL Lymph # (Auto) (9591-8005) /uL [place] # (Auto) (0-900) /uL Eos # (Auto) (0-450) /uL Baso # (Auto) (0-100) /uL PT (10.1-12.7) SECONDS INR (0.9-1.3) APTT (26-36) SECONDS ABG pH (7.35-7.45) ABG pCO2 (35-45) mmHg ABG pO2 (80-100) mmHg ABG HCO3 (22-26) mmol/L ABG Total CO2 (21-31) mmol/L ABG O2 Saturation (95-100) % ABG Base Excess (-2-2) mmol/L FiO2 Sodium (137-145) mmol/L Potassium (3.4-5.1) mmol/L Chloride (98-107) mmol/L Carbon Dioxide (22-32) mmol/L BUN (7-17) mg/dL Creatinine (0.52-1.04) mg/dL Estimated GFR (>60) mL/min BUN/Creatinine Ratio (6-22) Glucose (70-100) mg/dL Lactate (0.7-2.1) mmol/L Calcium (8.4-10.2) mg/dL Magnesium (1.6-2.3) mg/dL Total Bilirubin (0.2-1.3) mg/dL AST (14-36) IU/L ALT (<35) IU/L Alkaline Phosphatase (38-126) U/L Total Creatine Kinase (30-135) U/L CK-MB (CK-2) CK-MB (CK-2) Rel Index Troponin I 0.552 H* (0.01-0.034) ng/mL NT-Pro-B Natriuret Pep (<125) pg/mL Total Protein (6.3-8.2) g/dL Albumin (3.5-5.0) g/dL Globulin (1.7-4.1) g/dL Albumin/Globulin Ratio (1.0-2.8) Lipase (23-300) U/L Procalcitonin (<0.5) ng/mL Urine Color Yellow Urine Appearance Sl cloudy Urine pH 8.0 (4.5-8.0) Ur Specific [place] 1.015 (1.000-1.035) Urine Protein 3+ H (Negative) Urine Glucose (UA) 1+ H (Negative) g/dL Urine Ketones Negative (NEGATIVE) Urine Occult Blood 3+ H (Negative) Urine Nitrate Negative (Negative) Urine Bilirubin Negative (NEGATIVE) Urine Urobilinogen 0.2 (0.2) E.U./dL Ur Leukocyte Esterase Trace H (NEGATIVE) Urine RBC >100/hpf H (0-5/HPF) Urine WBC 5-10/hpf H (0-5/HPF) Amorphous Sediment 2+ Urine Bacteria Occasional (0-1) (None) Ur Culture Indicated? Specimen cultured U Opiates 300ng/mL cut (Negative) Ur Oxycodone Screen (Negative) Urine Methadone Screen (Negative) Ur Barbiturates Screen (Negative) U Tricyclic Antidepress (Negative) Ur Phencyclidine Scrn (Negative) Ur Amphetamines Screen (Negative) U Methamphetamines Scrn (Negative) Ur MDMA Scrn (Ecstasy) (Negative) U Benzodiazepines Scrn (Negative) Urine Cocaine Screen (Negative) U Marijuana (THC) Screen (Negative) Ethyl Alcohol < 10 ( - 10) mg/dL SARS-CoV-2 (PCR) (Negative) Influenza A (RT-PCR) (NEGATIVE) Influenza B (RT-PCR) (NEGATIVE) RSV (PCR) (Negative) 10/08/22 10/08/22 10/08/22 Range/Units 12:50 19:05 19:05 WBC (4.5-11.0) X10^3/uL RBC (4.0-5.2) X10^6/uL Hgb (12.0-16.0) g/dL Hct (36-46) % MCV (80-100) fL MCH (26-34) PG MCHC (30-36) % RDW (11.6-14.8) % Plt Count (150-400) X10^3/uL Neut % (Auto) (50-75) % Lymph % (Auto) (25-40) % [place] % (Auto) (3-14) % Eos % (Auto) (2-4) % Baso % (Auto) (0-2) % Neut # (Auto) (0432-1331) /uL Lymph # (Auto) (2803-2204) /uL [place] # (Auto) (0-900) /uL Eos # (Auto) (0-450) /uL Baso # (Auto) (0-100) /uL PT (10.1-12.7) SECONDS INR (0.9-1.3) APTT 26 (26-36) SECONDS ABG pH (7.35-7.45) ABG pCO2 (35-45) mmHg ABG pO2 (80-100) mmHg ABG HCO3 (22-26) mmol/L ABG Total CO2 (21-31) mmol/L ABG O2 Saturation (95-100) % ABG Base Excess (-2-2) mmol/L FiO2 Sodium (137-145) mmol/L Potassium (3.4-5.1) mmol/L Chloride (98-107) mmol/L Carbon Dioxide (22-32) mmol/L BUN (7-17) mg/dL Creatinine (0.52-1.04) mg/dL Estimated GFR (>60) mL/min BUN/Creatinine Ratio (6-22) Glucose (70-100) mg/dL Lactate (0.7-2.1) mmol/L Calcium (8.4-10.2) mg/dL Magnesium (1.6-2.3) mg/dL Total Bilirubin (0.2-1.3) mg/dL AST (14-36) IU/L ALT (<35) IU/L Alkaline Phosphatase (38-126) U/L Total Creatine Kinase (30-135) U/L CK-MB (CK-2) CK-MB (CK-2) Rel Index Troponin I 2.070 H* (0.01-0.034) ng/mL NT-Pro-B Natriuret Pep (<125) pg/mL Total Protein (6.3-8.2) g/dL Albumin (3.5-5.0) g/dL Globulin (1.7-4.1) g/dL Albumin/Globulin Ratio (1.0-2.8) Lipase (23-300) U/L Procalcitonin (<0.5) ng/mL Urine Color Urine Appearance Urine pH (4.5-8.0) Ur Specific [place] (1.000-1.035) Urine Protein (Negative) Urine Glucose (UA) (Negative) g/dL Urine Ketones (NEGATIVE) Urine Occult Blood (Negative) Urine Nitrate (Negative) Urine Bilirubin (NEGATIVE) Urine Urobilinogen (0.2) E.U./dL Ur Leukocyte Esterase (NEGATIVE) Urine RBC (0-5/HPF) Urine WBC (0-5/HPF) Amorphous Sediment Urine Bacteria (None) Ur Culture Indicated? U Opiates 300ng/mL cut Negative (Negative) Ur Oxycodone Screen Negative (Negative) Urine Methadone Screen Negative (Negative) Ur Barbiturates Screen Negative (Negative) U Tricyclic Antidepress Negative (Negative) Ur Phencyclidine Scrn Negative (Negative) Ur Amphetamines Screen Negative (Negative) U Methamphetamines Scrn Negative (Negative) Ur MDMA Scrn (Ecstasy) Negative (Negative) U Benzodiazepines Scrn Negative (Negative) Urine Cocaine Screen Negative (Negative) U Marijuana (THC) Screen Negative (Negative) Ethyl Alcohol ( - 10) mg/dL SARS-CoV-2 (PCR) (Negative) Influenza A (RT-PCR) (NEGATIVE) Influenza B (RT-PCR) (NEGATIVE) RSV (PCR) (Negative) 10/08/22 10/09/22 10/09/22 Range/Units 19:05 00:30 00:30 WBC (4.5-11.0) X10^3/uL RBC (4.0-5.2) X10^6/uL Hgb (12.0-16.0) g/dL Hct (36-46) % MCV (80-100) fL MCH (26-34) PG MCHC (30-36) % RDW (11.6-14.8) % Plt Count (150-400) X10^3/uL Neut % (Auto) (50-75) % Lymph % (Auto) (25-40) % [place] % (Auto) (3-14) % Eos % (Auto) (2-4) % Baso % (Auto) (0-2) % Neut # (Auto) (1535-3964) /uL Lymph # (Auto) (0607-4259) /uL [place] # (Auto) (0-900) /uL Eos # (Auto) (0-450) /uL Baso # (Auto) (0-100) /uL PT (10.1-12.7) SECONDS INR (0.9-1.3) APTT 76 H* D (26-36) SECONDS ABG pH (7.35-7.45) ABG pCO2 (35-45) mmHg ABG pO2 (80-100) mmHg ABG HCO3 (22-26) mmol/L ABG Total CO2 (21-31) mmol/L ABG O2 Saturation (95-100) % ABG Base Excess (-2-2) mmol/L FiO2 Sodium 139 (137-145) mmol/L Potassium 4.7 D (3.4-5.1) mmol/L Chloride 108 H (98-107) mmol/L Carbon Dioxide 26 (22-32) mmol/L BUN 12 (7-17) mg/dL Creatinine 0.70 (0.52-1.04) mg/dL Estimated GFR > 60 (>60) mL/min BUN/Creatinine Ratio 17.1 (6-22) Glucose 174 H (70-100) mg/dL Lactate (0.7-2.1) mmol/L Calcium 7.0 L (8.4-10.2) mg/dL Magnesium 2.1 (1.6-2.3) mg/dL Total Bilirubin 0.3 (0.2-1.3) mg/dL AST 115 H (14-36) IU/L ALT 80 H (<35) IU/L Alkaline Phosphatase 124 (38-126) U/L Total Creatine Kinase (30-135) U/L CK-MB (CK-2) CK-MB (CK-2) Rel Index Troponin I 3.540 H* (0.01-0.034) ng/mL NT-Pro-B Natriuret Pep (<125) pg/mL Total Protein 5.4 L (6.3-8.2) g/dL Albumin 3.0 L (3.5-5.0) g/dL Globulin 2.4 (1.7-4.1) g/dL Albumin/Globulin Ratio 1.3 (1.0-2.8) Lipase (23-300) U/L Procalcitonin (<0.5) ng/mL Urine Color Urine Appearance Urine pH (4.5-8.0) Ur Specific [place] (1.000-1.035) Urine Protein (Negative) Urine Glucose (UA) (Negative) g/dL Urine Ketones (NEGATIVE) Urine Occult Blood (Negative) Urine Nitrate (Negative) Urine Bilirubin (NEGATIVE) Urine Urobilinogen (0.2) E.U./dL Ur Leukocyte Esterase (NEGATIVE) Urine RBC (0-5/HPF) Urine WBC (0-5/HPF) Amorphous Sediment Urine Bacteria (None) Ur Culture Indicated? U Opiates 300ng/mL cut (Negative) Ur Oxycodone Screen (Negative) Urine Methadone Screen (Negative) Ur Barbiturates Screen (Negative) U Tricyclic Antidepress (Negative) Ur Phencyclidine Scrn (Negative) Ur Amphetamines Screen (Negative) U Methamphetamines Scrn (Negative) Ur MDMA Scrn (Ecstasy) (Negative) U Benzodiazepines Scrn (Negative) Urine Cocaine Screen (Negative) U Marijuana (THC) Screen (Negative) Ethyl Alcohol ( - 10) mg/dL SARS-CoV-2 (PCR) (Negative) Influenza A (RT-PCR) (NEGATIVE) Influenza B (RT-PCR) (NEGATIVE) RSV (PCR) (Negative) 10/09/22 10/09/22 10/09/22 Range/Units 07:30 07:30 07:30 WBC 6.3 (4.5-11.0) X10^3/uL RBC 3.76 L (4.0-5.2) X10^6/uL Hgb 10.5 L (12.0-16.0) g/dL Hct 32.2 L (36-46) % MCV 85.5 (80-100) fL MCH 27.9 (26-34) PG MCHC 32.7 (30-36) % RDW 19.2 H (11.6-14.8) % Plt Count 136 L (150-400) X10^3/uL Neut % (Auto) 74.2 (50-75) % Lymph % (Auto) 19.0 L (25-40) % [place] % (Auto) 6.1 (3-14) % Eos % (Auto) 0.2 L (2-4) % Baso % (Auto) 0.5 (0-2) % Neut # (Auto) 4700 (3901-3315) /uL Lymph # (Auto) 1200 (0236-6873) /uL [place] # (Auto) 400 (0-900) /uL Eos # (Auto) 0 (0-450) /uL Baso # (Auto) 0 (0-100) /uL PT 14.3 H (10.1-12.7) SECONDS INR 1.2 (0.9-1.3) APTT (26-36) SECONDS ABG pH (7.35-7.45) ABG pCO2 (35-45) mmHg ABG pO2 (80-100) mmHg ABG HCO3 (22-26) mmol/L ABG Total CO2 (21-31) mmol/L ABG O2 Saturation (95-100) % ABG Base Excess (-2-2) mmol/L FiO2 Sodium (137-145) mmol/L Potassium (3.4-5.1) mmol/L Chloride (98-107) mmol/L Carbon Dioxide (22-32) mmol/L BUN (7-17) mg/dL Creatinine (0.52-1.04) mg/dL Estimated GFR (>60) mL/min BUN/Creatinine Ratio (6-22) Glucose (70-100) mg/dL Lactate (0.7-2.1) mmol/L Calcium (8.4-10.2) mg/dL Magnesium (1.6-2.3) mg/dL Total Bilirubin (0.2-1.3) mg/dL AST (14-36) IU/L ALT (<35) IU/L Alkaline Phosphatase (38-126) U/L Total Creatine Kinase (30-135) U/L CK-MB (CK-2) CK-MB (CK-2) Rel Index Troponin I 3.520 H* (0.01-0.034) ng/mL NT-Pro-B Natriuret Pep (<125) pg/mL Total Protein (6.3-8.2) g/dL Albumin (3.5-5.0) g/dL Globulin (1.7-4.1) g/dL Albumin/Globulin Ratio (1.0-2.8) Lipase (23-300) U/L Procalcitonin (<0.5) ng/mL Urine Color Urine Appearance Urine pH (4.5-8.0) Ur Specific [place] (1.000-1.035) Urine Protein (Negative) Urine Glucose (UA) (Negative) g/dL Urine Ketones (NEGATIVE) Urine Occult Blood (Negative) Urine Nitrate (Negative) Urine Bilirubin (NEGATIVE) Urine Urobilinogen (0.2) E.U./dL Ur Leukocyte Esterase (NEGATIVE) Urine RBC (0-5/HPF) Urine WBC (0-5/HPF) Amorphous Sediment Urine Bacteria (None) Ur Culture Indicated? U Opiates 300ng/mL cut (Negative) Ur Oxycodone Screen (Negative) Urine Methadone Screen (Negative) Ur Barbiturates Screen (Negative) U Tricyclic Antidepress (Negative) Ur Phencyclidine Scrn (Negative) Ur Amphetamines Screen (Negative) U Methamphetamines Scrn (Negative) Ur MDMA Scrn (Ecstasy) (Negative) U Benzodiazepines Scrn (Negative) Urine Cocaine Screen (Negative) U Marijuana (THC) Screen (Negative) Ethyl Alcohol ( - 10) mg/dL SARS-CoV-2 (PCR) (Negative) Influenza A (RT-PCR) (NEGATIVE) Influenza B (RT-PCR) (NEGATIVE) RSV (PCR) (Negative) 10/09/22 10/09/22 10/09/22 Range/Units 07:30 07:30 07:30 WBC (4.5-11.0) X10^3/uL RBC (4.0-5.2) X10^6/uL Hgb (12.0-16.0) g/dL Hct (36-46) % MCV (80-100) fL MCH (26-34) PG MCHC (30-36) % RDW (11.6-14.8) % Plt Count (150-400) X10^3/uL Neut % (Auto) (50-75) % Lymph % (Auto) (25-40) % [place] % (Auto) (3-14) % Eos % (Auto) (2-4) % Baso % (Auto) (0-2) % Neut # (Auto) (0898-8249) /uL Lymph # (Auto) (4776-9137) /uL [place] # (Auto) (0-900) /uL Eos # (Auto) (0-450) /uL Baso # (Auto) (0-100) /uL PT (10.1-12.7) SECONDS INR (0.9-1.3) APTT 56 H D (26-36) SECONDS ABG pH (7.35-7.45) ABG pCO2 (35-45) mmHg ABG pO2 (80-100) mmHg ABG HCO3 (22-26) mmol/L ABG Total CO2 (21-31) mmol/L ABG O2 Saturation (95-100) % ABG Base Excess (-2-2) mmol/L FiO2 Sodium 137 (137-145) mmol/L Potassium 3.7 (3.4-5.1) mmol/L Chloride 106 (98-107) mmol/L Carbon Dioxide 29 (22-32) mmol/L BUN 12 (7-17) mg/dL Creatinine 0.65 (0.52-1.04) mg/dL Estimated GFR > 60 (>60) mL/min BUN/Creatinine Ratio 18.5 (6-22) Glucose 117 H (70-100) mg/dL Lactate 0.8 (0.7-2.1) mmol/L Calcium 7.0 L (8.4-10.2) mg/dL Magnesium (1.6-2.3) mg/dL Total Bilirubin 0.3 (0.2-1.3) mg/dL AST 136 H (14-36) IU/L ALT 112 H (<35) IU/L Alkaline Phosphatase 121 (38-126) U/L Total Creatine Kinase (30-135) U/L CK-MB (CK-2) CK-MB (CK-2) Rel Index Troponin I (0.01-0.034) ng/mL NT-Pro-B Natriuret Pep (<125) pg/mL Total Protein 5.1 L (6.3-8.2) g/dL Albumin 2.8 L (3.5-5.0) g/dL Globulin 2.3 (1.7-4.1) g/dL Albumin/Globulin Ratio 1.2 (1.0-2.8) Lipase 62 (23-300) U/L Procalcitonin 0.12 (<0.5) ng/mL Urine Color Urine Appearance Urine pH (4.5-8.0) Ur Specific [place] (1.000-1.035) Urine Protein (Negative) Urine Glucose (UA) (Negative) g/dL Urine Ketones (NEGATIVE) Urine Occult Blood (Negative) Urine Nitrate (Negative) Urine Bilirubin (NEGATIVE) Urine Urobilinogen (0.2) E.U./dL Ur Leukocyte Esterase (NEGATIVE) Urine RBC (0-5/HPF) Urine WBC (0-5/HPF) Amorphous Sediment Urine Bacteria (None) Ur Culture Indicated? U Opiates 300ng/mL cut (Negative) Ur Oxycodone Screen (Negative) Urine Methadone Screen (Negative) Ur Barbiturates Screen (Negative) U Tricyclic Antidepress (Negative) Ur Phencyclidine Scrn (Negative) Ur Amphetamines Screen (Negative) U Methamphetamines Scrn (Negative) Ur MDMA Scrn (Ecstasy) (Negative) U Benzodiazepines Scrn (Negative) Urine Cocaine Screen (Negative) U Marijuana (THC) Screen (Negative) Ethyl Alcohol ( - 10) mg/dL SARS-CoV-2 (PCR) (Negative) Influenza A (RT-PCR) (NEGATIVE) Influenza B (RT-PCR) (NEGATIVE) RSV (PCR) (Negative) 10/09/22 10/09/22 10/10/22 Range/Units 13:30 19:25 01:39 WBC (4.5-11.0) X10^3/uL RBC (4.0-5.2) X10^6/uL Hgb (12.0-16.0) g/dL Hct (36-46) % MCV (80-100) fL MCH (26-34) PG MCHC (30-36) % RDW (11.6-14.8) % Plt Count (150-400) X10^3/uL Neut % (Auto) (50-75) % Lymph % (Auto) (25-40) % [place] % (Auto) (3-14) % Eos % (Auto) (2-4) % Baso % (Auto) (0-2) % Neut # (Auto) (5123-7614) /uL Lymph # (Auto) (3128-5333) /uL [place] # (Auto) (0-900) /uL Eos # (Auto) (0-450) /uL Baso # (Auto) (0-100) /uL PT (10.1-12.7) SECONDS INR (0.9-1.3) APTT 50 H 50 H 43 H (26-36) SECONDS ABG pH (7.35-7.45) ABG pCO2 (35-45) mmHg ABG pO2 (80-100) mmHg ABG HCO3 (22-26) mmol/L ABG Total CO2 (21-31) mmol/L ABG O2 Saturation (95-100) % ABG Base Excess (-2-2) mmol/L FiO2 Sodium (137-145) mmol/L Potassium (3.4-5.1) mmol/L Chloride (98-107) mmol/L Carbon Dioxide (22-32) mmol/L BUN (7-17) mg/dL Creatinine (0.52-1.04) mg/dL Estimated GFR (>60) mL/min BUN/Creatinine Ratio (6-22) Glucose (70-100) mg/dL Lactate (0.7-2.1) mmol/L Calcium (8.4-10.2) mg/dL Magnesium (1.6-2.3) mg/dL Total Bilirubin (0.2-1.3) mg/dL AST (14-36) IU/L ALT (<35) IU/L Alkaline Phosphatase (38-126) U/L Total Creatine Kinase (30-135) U/L CK-MB (CK-2) CK-MB (CK-2) Rel Index Troponin I (0.01-0.034) ng/mL NT-Pro-B Natriuret Pep (<125) pg/mL Total Protein (6.3-8.2) g/dL Albumin (3.5-5.0) g/dL Globulin (1.7-4.1) g/dL Albumin/Globulin Ratio (1.0-2.8) Lipase (23-300) U/L Procalcitonin (<0.5) ng/mL Urine Color Urine Appearance Urine pH (4.5-8.0) Ur Specific [place] (1.000-1.035) Urine Protein (Negative) Urine Glucose (UA) (Negative) g/dL Urine Ketones (NEGATIVE) Urine Occult Blood (Negative) Urine Nitrate (Negative) Urine Bilirubin (NEGATIVE) Urine Urobilinogen (0.2) E.U./dL Ur Leukocyte Esterase (NEGATIVE) Urine RBC (0-5/HPF) Urine WBC (0-5/HPF) Amorphous Sediment Urine Bacteria (None) Ur Culture Indicated? U Opiates 300ng/mL cut (Negative) Ur Oxycodone Screen (Negative) Urine Methadone Screen (Negative) Ur Barbiturates Screen (Negative) U Tricyclic Antidepress (Negative) Ur Phencyclidine Scrn (Negative) Ur Amphetamines Screen (Negative) U Methamphetamines Scrn (Negative) Ur MDMA Scrn (Ecstasy) (Negative) U Benzodiazepines Scrn (Negative) Urine Cocaine Screen (Negative) U Marijuana (THC) Screen (Negative) Ethyl Alcohol ( - 10) mg/dL SARS-CoV-2 (PCR) (Negative) Influenza A (RT-PCR) (NEGATIVE) Influenza B (RT-PCR) (NEGATIVE) RSV (PCR) (Negative) 10/10/22 10/10/22 10/10/22 Range/Units 06:20 06:20 06:20 WBC 4.1 L (4.5-11.0) X10^3/uL RBC 3.59 L (4.0-5.2) X10^6/uL Hgb 9.9 L (12.0-16.0) g/dL Hct 30.4 L (36-46) % MCV 84.7 (80-100) fL MCH 27.5 (26-34) PG MCHC 32.5 (30-36) % RDW 18.8 H (11.6-14.8) % Plt Count 114 L (150-400) X10^3/uL Neut % (Auto) 59.3 (50-75) % Lymph % (Auto) 32.2 (25-40) % [place] % (Auto) 7.7 (3-14) % Eos % (Auto) 0.2 L (2-4) % Baso % (Auto) 0.6 (0-2) % Neut # (Auto) 2400 (7071-9603) /uL Lymph # (Auto) 1300 (2985-9979) /uL [place] # (Auto) 300 (0-900) /uL Eos # (Auto) 0 (0-450) /uL Baso # (Auto) 0 (0-100) /uL PT (10.1-12.7) SECONDS INR (0.9-1.3) APTT 44 H (26-36) SECONDS ABG pH (7.35-7.45) ABG pCO2 (35-45) mmHg ABG pO2 (80-100) mmHg ABG HCO3 (22-26) mmol/L ABG Total CO2 (21-31) mmol/L ABG O2 Saturation (95-100) % ABG Base Excess (-2-2) mmol/L FiO2 Sodium 138 (137-145) mmol/L Potassium 3.3 L (3.4-5.1) mmol/L Chloride 105 (98-107) mmol/L Carbon Dioxide 31 (22-32) mmol/L BUN 7 (7-17) mg/dL Creatinine 0.58 (0.52-1.04) mg/dL Estimated GFR > 60 (>60) mL/min BUN/Creatinine Ratio 12.1 (6-22) Glucose 97 (70-100) mg/dL Lactate (0.7-2.1) mmol/L Calcium 7.6 L (8.4-10.2) mg/dL Magnesium (1.6-2.3) mg/dL Total Bilirubin 0.3 (0.2-1.3) mg/dL AST 202 H (14-36) IU/L ALT 260 H (<35) IU/L Alkaline Phosphatase 114 (38-126) U/L Total Creatine Kinase (30-135) U/L CK-MB (CK-2) CK-MB (CK-2) Rel Index Troponin I 1.600 H* (0.01-0.034) ng/mL NT-Pro-B Natriuret Pep 1530 H (<125) pg/mL Total Protein 5.1 L (6.3-8.2) g/dL Albumin 2.8 L (3.5-5.0) g/dL Globulin 2.3 (1.7-4.1) g/dL Albumin/Globulin Ratio 1.2 (1.0-2.8) Lipase (23-300) U/L Procalcitonin (<0.5) ng/mL Urine Color Urine Appearance Urine pH (4.5-8.0) Ur Specific [place] (1.000-1.035) Urine Protein (Negative) Urine Glucose (UA) (Negative) g/dL Urine Ketones (NEGATIVE) Urine Occult Blood (Negative) Urine Nitrate (Negative) Urine Bilirubin (NEGATIVE) Urine Urobilinogen (0.2) E.U./dL Ur Leukocyte Esterase (NEGATIVE) Urine RBC (0-5/HPF) Urine WBC (0-5/HPF) Amorphous Sediment Urine Bacteria (None) Ur Culture Indicated? U Opiates 300ng/mL cut (Negative) Ur Oxycodone Screen (Negative) Urine Methadone Screen (Negative) Ur Barbiturates Screen (Negative) U Tricyclic Antidepress (Negative) Ur Phencyclidine Scrn (Negative) Ur Amphetamines Screen (Negative) U Methamphetamines Scrn (Negative) Ur MDMA Scrn (Ecstasy) (Negative) U Benzodiazepines Scrn (Negative) Urine Cocaine Screen (Negative) U Marijuana (THC) Screen (Negative) Ethyl Alcohol ( - 10) mg/dL SARS-CoV-2 (PCR) (Negative) Influenza A (RT-PCR) (NEGATIVE) Influenza B (RT-PCR) (NEGATIVE) RSV (PCR) (Negative) 10/10/22 10/10/22 10/10/22 Range/Units 12:16 12:16 18:29 WBC (4.5-11.0) X10^3/uL RBC (4.0-5.2) X10^6/uL Hgb (12.0-16.0) g/dL Hct (36-46) % MCV (80-100) fL MCH (26-34) PG MCHC (30-36) % RDW (11.6-14.8) % Plt Count (150-400) X10^3/uL Neut % (Auto) (50-75) % Lymph % (Auto) (25-40) % [place] % (Auto) (3-14) % Eos % (Auto) (2-4) % Baso % (Auto) (0-2) % Neut # (Auto) (4844-8274) /uL Lymph # (Auto) (2974-3606) /uL [place] # (Auto) (0-900) /uL Eos # (Auto) (0-450) /uL Baso # (Auto) (0-100) /uL PT (10.1-12.7) SECONDS INR (0.9-1.3) APTT 46 H 46 H (26-36) SECONDS ABG pH (7.35-7.45) ABG pCO2 (35-45) mmHg ABG pO2 (80-100) mmHg ABG HCO3 (22-26) mmol/L ABG Total CO2 (21-31) mmol/L ABG O2 Saturation (95-100) % ABG Base Excess (-2-2) mmol/L FiO2 Sodium (137-145) mmol/L Potassium (3.4-5.1) mmol/L Chloride (98-107) mmol/L Carbon Dioxide (22-32) mmol/L BUN (7-17) mg/dL Creatinine (0.52-1.04) mg/dL Estimated GFR (>60) mL/min BUN/Creatinine Ratio (6-22) Glucose (70-100) mg/dL Lactate (0.7-2.1) mmol/L Calcium (8.4-10.2) mg/dL Magnesium 1.5 L (1.6-2.3) mg/dL Total Bilirubin (0.2-1.3) mg/dL AST (14-36) IU/L ALT (<35) IU/L Alkaline Phosphatase (38-126) U/L Total Creatine Kinase (30-135) U/L CK-MB (CK-2) CK-MB (CK-2) Rel Index Troponin I (0.01-0.034) ng/mL NT-Pro-B Natriuret Pep (<125) pg/mL Total Protein (6.3-8.2) g/dL Albumin (3.5-5.0) g/dL Globulin (1.7-4.1) g/dL Albumin/Globulin Ratio (1.0-2.8) Lipase (23-300) U/L Procalcitonin (<0.5) ng/mL Urine Color Urine Appearance Urine pH (4.5-8.0) Ur Specific [place] (1.000-1.035) Urine Protein (Negative) Urine Glucose (UA) (Negative) g/dL Urine Ketones (NEGATIVE) Urine Occult Blood (Negative) Urine Nitrate (Negative) Urine Bilirubin (NEGATIVE) Urine Urobilinogen (0.2) E.U./dL Ur Leukocyte Esterase (NEGATIVE) Urine RBC (0-5/HPF) Urine WBC (0-5/HPF) Amorphous Sediment Urine Bacteria (None) Ur Culture Indicated? U Opiates 300ng/mL cut (Negative) Ur Oxycodone Screen (Negative) Urine Methadone Screen (Negative) Ur Barbiturates Screen (Negative) U Tricyclic Antidepress (Negative) Ur Phencyclidine Scrn (Negative) Ur Amphetamines Screen (Negative) U Methamphetamines Scrn (Negative) Ur MDMA Scrn (Ecstasy) (Negative) U Benzodiazepines Scrn (Negative) Urine Cocaine Screen (Negative) U Marijuana (THC) Screen (Negative) Ethyl Alcohol ( - 10) mg/dL SARS-CoV-2 (PCR) (Negative) Influenza A (RT-PCR) (NEGATIVE) Influenza B (RT-PCR) (NEGATIVE) RSV (PCR) (Negative) 10/11/22 10/11/22 10/11/22 Range/Units 01:00 06:07 06:07 WBC 3.9 L (4.5-11.0) X10^3/uL RBC 3.07 L (4.0-5.2) X10^6/uL Hgb 8.6 L (12.0-16.0) g/dL Hct 25.8 L (36-46) % MCV 84.3 (80-100) fL MCH 28.2 (26-34) PG MCHC 33.4 (30-36) % RDW 18.2 H (11.6-14.8) % Plt Count 105 L (150-400) X10^3/uL Neut % (Auto) 57.5 (50-75) % Lymph % (Auto) 32.9 (25-40) % [place] % (Auto) 9.2 (3-14) % Eos % (Auto) 0.2 L (2-4) % Baso % (Auto) 0.2 (0-2) % Neut # (Auto) 2200 (1815-1750) /uL Lymph # (Auto) 1300 (0867-2796) /uL [place] # (Auto) 400 (0-900) /uL Eos # (Auto) 0 (0-450) /uL Baso # (Auto) 0 (0-100) /uL PT (10.1-12.7) SECONDS INR (0.9-1.3) APTT 55 H D (26-36) SECONDS ABG pH (7.35-7.45) ABG pCO2 (35-45) mmHg ABG pO2 (80-100) mmHg ABG HCO3 (22-26) mmol/L ABG Total CO2 (21-31) mmol/L ABG O2 Saturation (95-100) % ABG Base Excess (-2-2) mmol/L FiO2 Sodium 137 (137-145) mmol/L Potassium 3.3 L (3.4-5.1) mmol/L Chloride 112 H (98-107) mmol/L Carbon Dioxide 24 (22-32) mmol/L BUN 4 L (7-17) mg/dL Creatinine 0.48 L (0.52-1.04) mg/dL Estimated GFR > 60 (>60) mL/min BUN/Creatinine Ratio 8.3 (6-22) Glucose 84 (70-100) mg/dL Lactate (0.7-2.1) mmol/L Calcium 6.5 L (8.4-10.2) mg/dL Magnesium (1.6-2.3) mg/dL Total Bilirubin 0.2 (0.2-1.3) mg/dL AST 96 H (14-36) IU/L ALT 210 H (<35) IU/L Alkaline Phosphatase 93 (38-126) U/L Total Creatine Kinase (30-135) U/L CK-MB (CK-2) CK-MB (CK-2) Rel Index Troponin I 0.857 H* (0.01-0.034) ng/mL NT-Pro-B Natriuret Pep (<125) pg/mL Total Protein 4.4 L (6.3-8.2) g/dL Albumin 2.3 L (3.5-5.0) g/dL Globulin 2.1 (1.7-4.1) g/dL Albumin/Globulin Ratio 1.1 (1.0-2.8) Lipase (23-300) U/L Procalcitonin (<0.5) ng/mL Urine Color Urine Appearance Urine pH (4.5-8.0) Ur Specific [place] (1.000-1.035) Urine Protein (Negative) Urine Glucose (UA) (Negative) g/dL Urine Ketones (NEGATIVE) Urine Occult Blood (Negative) Urine Nitrate (Negative) Urine Bilirubin (NEGATIVE) Urine Urobilinogen (0.2) E.U./dL Ur Leukocyte Esterase (NEGATIVE) Urine RBC (0-5/HPF) Urine WBC (0-5/HPF) Amorphous Sediment Urine Bacteria (None) Ur Culture Indicated? U Opiates 300ng/mL cut (Negative) Ur Oxycodone Screen (Negative) Urine Methadone Screen (Negative) Ur Barbiturates Screen (Negative) U Tricyclic Antidepress (Negative) Ur Phencyclidine Scrn (Negative) Ur Amphetamines Screen (Negative) U Methamphetamines Scrn (Negative) Ur MDMA Scrn (Ecstasy) (Negative) U Benzodiazepines Scrn (Negative) Urine Cocaine Screen (Negative) U Marijuana (THC) Screen (Negative) Ethyl Alcohol ( - 10) mg/dL SARS-CoV-2 (PCR) (Negative) Influenza A (RT-PCR) (NEGATIVE) Influenza B (RT-PCR) (NEGATIVE) RSV (PCR) (Negative) 10/11/22 10/11/22 Range/Units 17:44 17:44 WBC 4.5 (4.5-11.0) X10^3/uL RBC 3.65 L (4.0-5.2) X10^6/uL Hgb 10.1 L (12.0-16.0) g/dL Hct 30.8 L (36-46) % MCV 84.4 (80-100) fL MCH 27.7 (26-34) PG MCHC 32.9 (30-36) % RDW 18.4 H (11.6-14.8) % Plt Count 128 L (150-400) X10^3/uL Neut % (Auto) 67.2 (50-75) % Lymph % (Auto) 22.9 L (25-40) % [place] % (Auto) 9.0 (3-14) % Eos % (Auto) 0.3 L (2-4) % Baso % (Auto) 0.6 (0-2) % Neut # (Auto) 3000 (7172-5249) /uL Lymph # (Auto) 1000 L (1156-1011) /uL [place] # (Auto) 400 (0-900) /uL Eos # (Auto) 0 (0-450) /uL Baso # (Auto) 0 (0-100) /uL PT (10.1-12.7) SECONDS INR (0.9-1.3) APTT (26-36) SECONDS ABG pH (7.35-7.45) ABG pCO2 (35-45) mmHg ABG pO2 (80-100) mmHg ABG HCO3 (22-26) mmol/L ABG Total CO2 (21-31) mmol/L ABG O2 Saturation (95-100) % ABG Base Excess (-2-2) mmol/L FiO2 Sodium 138 (137-145) mmol/L Potassium 4.4 (3.4-5.1) mmol/L Chloride 106 (98-107) mmol/L Carbon Dioxide 29 (22-32) mmol/L BUN 5 L (7-17) mg/dL Creatinine 0.60 (0.52-1.04) mg/dL Estimated GFR > 60 (>60) mL/min BUN/Creatinine Ratio 8.3 (6-22) Glucose 90 (70-100) mg/dL Lactate (0.7-2.1) mmol/L Calcium 8.0 L (8.4-10.2) mg/dL Magnesium 1.9 (1.6-2.3) mg/dL Total Bilirubin 0.3 (0.2-1.3) mg/dL AST 76 H (14-36) IU/L ALT 231 H (<35) IU/L Alkaline Phosphatase 120 (38-126) U/L Total Creatine Kinase (30-135) U/L CK-MB (CK-2) CK-MB (CK-2) Rel Index Troponin I (0.01-0.034) ng/mL NT-Pro-B Natriuret Pep (<125) pg/mL Total Protein 5.5 L (6.3-8.2) g/dL Albumin 3.1 L (3.5-5.0) g/dL Globulin 2.4 (1.7-4.1) g/dL Albumin/Globulin Ratio 1.3 (1.0-2.8) Lipase (23-300) U/L Procalcitonin (<0.5) ng/mL Urine Color Urine Appearance Urine pH (4.5-8.0) Ur Specific [place] (1.000-1.035) Urine Protein (Negative) Urine Glucose (UA) (Negative) g/dL Urine Ketones (NEGATIVE) Urine Occult Blood (Negative) Urine Nitrate (Negative) Urine Bilirubin (NEGATIVE) Urine Urobilinogen (0.2) E.U./dL Ur Leukocyte Esterase (NEGATIVE) Urine RBC (0-5/HPF) Urine WBC (0-5/HPF) Amorphous Sediment Urine Bacteria (None) Ur Culture Indicated? U Opiates 300ng/mL cut (Negative) Ur Oxycodone Screen (Negative) Urine Methadone Screen (Negative) Ur Barbiturates Screen (Negative) U Tricyclic Antidepress (Negative) Ur Phencyclidine Scrn (Negative) Ur Amphetamines Screen (Negative) U Methamphetamines Scrn (Negative) Ur MDMA Scrn (Ecstasy) (Negative) U Benzodiazepines Scrn (Negative) Urine Cocaine Screen (Negative) U Marijuana (THC) Screen (Negative) Ethyl Alcohol ( - 10) mg/dL SARS-CoV-2 (PCR) (Negative) Influenza A (RT-PCR) (NEGATIVE) Influenza B (RT-PCR) (NEGATIVE) RSV (PCR) (Negative) Point of Care Testing Stool Occult Blood Negative <Willie Miller, DO - Last Filed: 10/11/22 12:01> Lab Data Labs: Lab Results 10/08/22 10/08/22 10/08/22 Range/Units 10:03 10:11 10:11 WBC 4.6 (4.5-11.0) X10^3/uL RBC 4.21 (4.0-5.2) X10^6/uL Hgb 11.7 L (12.0-16.0) g/dL Hct 35.9 L (36-46) % MCV 85.3 (80-100) fL MCH 27.7 (26-34) PG MCHC 32.5 (30-36) % RDW 19.3 H (11.6-14.8) % Plt Count 182 (150-400) X10^3/uL Neut % (Auto) 69.7 (50-75) % Lymph % (Auto) 22.1 L (25-40) % [place] % (Auto) 7.9 (3-14) % Eos % (Auto) 0.1 L (2-4) % Baso % (Auto) 0.2 (0-2) % Neut # (Auto) 3200 (9069-2870) /uL Lymph # (Auto) 1000 L (1902-3156) /uL [place] # (Auto) 400 (0-900) /uL Eos # (Auto) 0 (0-450) /uL Baso # (Auto) 0 (0-100) /uL PT (10.1-12.7) SECONDS INR (0.9-1.3) APTT (26-36) SECONDS ABG pH (7.35-7.45) ABG pCO2 (35-45) mmHg ABG pO2 (80-100) mmHg ABG HCO3 (22-26) mmol/L ABG Total CO2 (21-31) mmol/L ABG O2 Saturation (95-100) % ABG Base Excess (-2-2) mmol/L FiO2 Sodium 143 (137-145) mmol/L Potassium 3.3 L (3.4-5.1) mmol/L Chloride 104 (98-107) mmol/L Carbon Dioxide 34 H (22-32) mmol/L BUN 12 (7-17) mg/dL Creatinine 0.60 (0.52-1.04) mg/dL Estimated GFR > 60 (>60) mL/min BUN/Creatinine Ratio 20.0 (6-22) Glucose 95 (70-100) mg/dL Lactate (0.7-2.1) mmol/L Calcium 7.9 L (8.4-10.2) mg/dL Magnesium (1.6-2.3) mg/dL Total Bilirubin 0.3 (0.2-1.3) mg/dL AST 18 (14-36) IU/L ALT 15 (<35) IU/L Alkaline Phosphatase 104 (38-126) U/L Total Creatine Kinase (30-135) U/L CK-MB (CK-2) CK-MB (CK-2) Rel Index Troponin I (0.01-0.034) ng/mL NT-Pro-B Natriuret Pep (<125) pg/mL Total Protein 6.4 (6.3-8.2) g/dL Albumin 3.5 (3.5-5.0) g/dL Globulin 2.9 (1.7-4.1) g/dL Albumin/Globulin Ratio 1.2 (1.0-2.8) Lipase 45 (23-300) U/L Procalcitonin < 0.03 (<0.5) ng/mL Urine Color Urine Appearance Urine pH (4.5-8.0) Ur Specific [place] (1.000-1.035) Urine Protein (Negative) Urine Glucose (UA) (Negative) g/dL Urine Ketones (NEGATIVE) Urine Occult Blood (Negative) Urine Nitrate (Negative) Urine Bilirubin (NEGATIVE) Urine Urobilinogen (0.2) E.U./dL Ur Leukocyte Esterase (NEGATIVE) Urine RBC (0-5/HPF) Urine WBC (0-5/HPF) Amorphous Sediment Urine Bacteria (None) Ur Culture Indicated? U Opiates 300ng/mL cut (Negative) Ur Oxycodone Screen (Negative) Urine Methadone Screen (Negative) Ur Barbiturates Screen (Negative) U Tricyclic Antidepress (Negative) Ur Phencyclidine Scrn (Negative) Ur Amphetamines Screen (Negative) U Methamphetamines Scrn (Negative) Ur MDMA Scrn (Ecstasy) (Negative) U Benzodiazepines Scrn (Negative) Urine Cocaine Screen (Negative) U Marijuana (THC) Screen (Negative) Ethyl Alcohol ( - 10) mg/dL SARS-CoV-2 (PCR) Negative (Negative) Influenza A (RT-PCR) Flu a negative (NEGATIVE) Influenza B (RT-PCR) Flu b negative (NEGATIVE) RSV (PCR) Negative (Negative) 10/08/22 10/08/22 10/08/22 Range/Units 10:11 10:11 10:11 WBC (4.5-11.0) X10^3/uL RBC (4.0-5.2) X10^6/uL Hgb (12.0-16.0) g/dL Hct (36-46) % MCV (80-100) fL MCH (26-34) PG MCHC (30-36) % RDW (11.6-14.8) % Plt Count (150-400) X10^3/uL Neut % (Auto) (50-75) % Lymph % (Auto) (25-40) % [place] % (Auto) (3-14) % Eos % (Auto) (2-4) % Baso % (Auto) (0-2) % Neut # (Auto) (3677-4858) /uL Lymph # (Auto) (0646-6595) /uL [place] # (Auto) (0-900) /uL Eos # (Auto) (0-450) /uL Baso # (Auto) (0-100) /uL PT 11.3 (10.1-12.7) SECONDS INR 1.0 (0.9-1.3) APTT 29 (26-36) SECONDS ABG pH (7.35-7.45) ABG pCO2 (35-45) mmHg ABG pO2 (80-100) mmHg ABG HCO3 (22-26) mmol/L ABG Total CO2 (21-31) mmol/L ABG O2 Saturation (95-100) % ABG Base Excess (-2-2) mmol/L FiO2 Sodium (137-145) mmol/L Potassium (3.4-5.1) mmol/L Chloride (98-107) mmol/L Carbon Dioxide (22-32) mmol/L BUN (7-17) mg/dL Creatinine (0.52-1.04) mg/dL Estimated GFR (>60) mL/min BUN/Creatinine Ratio (6-22) Glucose (70-100) mg/dL Lactate 1.0 (0.7-2.1) mmol/L Calcium (8.4-10.2) mg/dL Magnesium (1.6-2.3) mg/dL Total Bilirubin (0.2-1.3) mg/dL AST (14-36) IU/L ALT (<35) IU/L Alkaline Phosphatase (38-126) U/L Total Creatine Kinase 32 (30-135) U/L CK-MB (CK-2) TNP CK-MB (CK-2) Rel Index TNP Troponin I < 0.012 (0.01-0.034) ng/mL NT-Pro-B Natriuret Pep 240 H (<125) pg/mL Total Protein (6.3-8.2) g/dL Albumin (3.5-5.0) g/dL Globulin (1.7-4.1) g/dL Albumin/Globulin Ratio (1.0-2.8) Lipase (23-300) U/L Procalcitonin (<0.5) ng/mL Urine Color Urine Appearance Urine pH (4.5-8.0) Ur Specific [place] (1.000-1.035) Urine Protein (Negative) Urine Glucose (UA) (Negative) g/dL Urine Ketones (NEGATIVE) Urine Occult Blood (Negative) Urine Nitrate (Negative) Urine Bilirubin (NEGATIVE) Urine Urobilinogen (0.2) E.U./dL Ur Leukocyte Esterase (NEGATIVE) Urine RBC (0-5/HPF) Urine WBC (0-5/HPF) Amorphous Sediment Urine Bacteria (None) Ur Culture Indicated? U Opiates 300ng/mL cut (Negative) Ur Oxycodone Screen (Negative) Urine Methadone Screen (Negative) Ur Barbiturates Screen (Negative) U Tricyclic Antidepress (Negative) Ur Phencyclidine Scrn (Negative) Ur Amphetamines Screen (Negative) U Methamphetamines Scrn (Negative) Ur MDMA Scrn (Ecstasy) (Negative) U Benzodiazepines Scrn (Negative) Urine Cocaine Screen (Negative) U Marijuana (THC) Screen (Negative) Ethyl Alcohol ( - 10) mg/dL SARS-CoV-2 (PCR) (Negative) Influenza A (RT-PCR) (NEGATIVE) Influenza B (RT-PCR) (NEGATIVE) RSV (PCR) (Negative) 10/08/22 10/08/22 10/08/22 Range/Units 10:11 10:43 12:50 WBC (4.5-11.0) X10^3/uL RBC (4.0-5.2) X10^6/uL Hgb (12.0-16.0) g/dL Hct (36-46) % MCV (80-100) fL MCH (26-34) PG MCHC (30-36) % RDW (11.6-14.8) % Plt Count (150-400) X10^3/uL Neut % (Auto) (50-75) % Lymph % (Auto) (25-40) % [place] % (Auto) (3-14) % Eos % (Auto) (2-4) % Baso % (Auto) (0-2) % Neut # (Auto) (4460-9671) /uL Lymph # (Auto) (9508-4203) /uL [place] # (Auto) (0-900) /uL Eos # (Auto) (0-450) /uL Baso # (Auto) (0-100) /uL PT (10.1-12.7) SECONDS INR (0.9-1.3) APTT (26-36) SECONDS ABG pH 7.40 (7.35-7.45) ABG pCO2 37.3 (35-45) mmHg ABG pO2 144 H (80-100) mmHg ABG HCO3 23 (22-26) mmol/L ABG Total CO2 24 (21-31) mmol/L ABG O2 Saturation 99 (95-100) % ABG Base Excess -2.0 (-2-2) mmol/L FiO2 80 Sodium (137-145) mmol/L Potassium (3.4-5.1) mmol/L Chloride (98-107) mmol/L Carbon Dioxide (22-32) mmol/L BUN (7-17) mg/dL Creatinine (0.52-1.04) mg/dL Estimated GFR (>60) mL/min BUN/Creatinine Ratio (6-22) Glucose (70-100) mg/dL Lactate 1.4 (0.7-2.1) mmol/L Calcium (8.4-10.2) mg/dL Magnesium 1.8 (1.6-2.3) mg/dL Total Bilirubin (0.2-1.3) mg/dL AST (14-36) IU/L ALT (<35) IU/L Alkaline Phosphatase (38-126) U/L Total Creatine Kinase (30-135) U/L CK-MB (CK-2) CK-MB (CK-2) Rel Index Troponin I (0.01-0.034) ng/mL NT-Pro-B Natriuret Pep (<125) pg/mL Total Protein (6.3-8.2) g/dL Albumin (3.5-5.0) g/dL Globulin (1.7-4.1) g/dL Albumin/Globulin Ratio (1.0-2.8) Lipase (23-300) U/L Procalcitonin (<0.5) ng/mL Urine Color Urine Appearance Urine pH (4.5-8.0) Ur Specific [place] (1.000-1.035) Urine Protein (Negative) Urine Glucose (UA) (Negative) g/dL Urine Ketones (NEGATIVE) Urine Occult Blood (Negative) Urine Nitrate (Negative) Urine Bilirubin (NEGATIVE) Urine Urobilinogen (0.2) E.U./dL Ur Leukocyte Esterase (NEGATIVE) Urine RBC (0-5/HPF) Urine WBC (0-5/HPF) Amorphous Sediment Urine Bacteria (None) Ur Culture Indicated? U Opiates 300ng/mL cut (Negative) Ur Oxycodone Screen (Negative) Urine Methadone Screen (Negative) Ur Barbiturates Screen (Negative) U Tricyclic Antidepress (Negative) Ur Phencyclidine Scrn (Negative) Ur Amphetamines Screen (Negative) U Methamphetamines Scrn (Negative) Ur MDMA Scrn (Ecstasy) (Negative) U Benzodiazepines Scrn (Negative) Urine Cocaine Screen (Negative) U Marijuana (THC) Screen (Negative) Ethyl Alcohol ( - 10) mg/dL SARS-CoV-2 (PCR) (Negative) Influenza A (RT-PCR) (NEGATIVE) Influenza B (RT-PCR) (NEGATIVE) RSV (PCR) (Negative) 10/08/22 10/08/22 10/08/22 Range/Units 12:50 12:50 12:50 WBC (4.5-11.0) X10^3/uL RBC (4.0-5.2) X10^6/uL Hgb (12.0-16.0) g/dL Hct (36-46) % MCV (80-100) fL MCH (26-34) PG MCHC (30-36) % RDW (11.6-14.8) % Plt Count (150-400) X10^3/uL Neut % (Auto) (50-75) % Lymph % (Auto) (25-40) % [place] % (Auto) (3-14) % Eos % (Auto) (2-4) % Baso % (Auto) (0-2) % Neut # (Auto) (6398-8746) /uL Lymph # (Auto) (9644-5150) /uL [place] # (Auto) (0-900) /uL Eos # (Auto) (0-450) /uL Baso # (Auto) (0-100) /uL PT (10.1-12.7) SECONDS INR (0.9-1.3) APTT (26-36) SECONDS ABG pH (7.35-7.45) ABG pCO2 (35-45) mmHg ABG pO2 (80-100) mmHg ABG HCO3 (22-26) mmol/L ABG Total CO2 (21-31) mmol/L ABG O2 Saturation (95-100) % ABG Base Excess (-2-2) mmol/L FiO2 Sodium (137-145) mmol/L Potassium (3.4-5.1) mmol/L Chloride (98-107) mmol/L Carbon Dioxide (22-32) mmol/L BUN (7-17) mg/dL Creatinine (0.52-1.04) mg/dL Estimated GFR (>60) mL/min BUN/Creatinine Ratio (6-22) Glucose (70-100) mg/dL Lactate (0.7-2.1) mmol/L Calcium (8.4-10.2) mg/dL Magnesium (1.6-2.3) mg/dL Total Bilirubin (0.2-1.3) mg/dL AST (14-36) IU/L ALT (<35) IU/L Alkaline Phosphatase (38-126) U/L Total Creatine Kinase (30-135) U/L CK-MB (CK-2) CK-MB (CK-2) Rel Index Troponin I 0.552 H* (0.01-0.034) ng/mL NT-Pro-B Natriuret Pep (<125) pg/mL Total Protein (6.3-8.2) g/dL Albumin (3.5-5.0) g/dL Globulin (1.7-4.1) g/dL Albumin/Globulin Ratio (1.0-2.8) Lipase (23-300) U/L Procalcitonin (<0.5) ng/mL Urine Color Yellow Urine Appearance Sl cloudy Urine pH 8.0 (4.5-8.0) Ur Specific [place] 1.015 (1.000-1.035) Urine Protein 3+ H (Negative) Urine Glucose (UA) 1+ H (Negative) g/dL Urine Ketones Negative (NEGATIVE) Urine Occult Blood 3+ H (Negative) Urine Nitrate Negative (Negative) Urine Bilirubin Negative (NEGATIVE) Urine Urobilinogen 0.2 (0.2) E.U./dL Ur Leukocyte Esterase Trace H (NEGATIVE) Urine RBC >100/hpf H (0-5/HPF) Urine WBC 5-10/hpf H (0-5/HPF) Amorphous Sediment 2+ Urine Bacteria Occasional (0-1) (None) Ur Culture Indicated? Specimen cultured U Opiates 300ng/mL cut (Negative) Ur Oxycodone Screen (Negative) Urine Methadone Screen (Negative) Ur Barbiturates Screen (Negative) U Tricyclic Antidepress (Negative) Ur Phencyclidine Scrn (Negative) Ur Amphetamines Screen (Negative) U Methamphetamines Scrn (Negative) Ur MDMA Scrn (Ecstasy) (Negative) U Benzodiazepines Scrn (Negative) Urine Cocaine Screen (Negative) U Marijuana (THC) Screen (Negative) Ethyl Alcohol < 10 ( - 10) mg/dL SARS-CoV-2 (PCR) (Negative) Influenza A (RT-PCR) (NEGATIVE) Influenza B (RT-PCR) (NEGATIVE) RSV (PCR) (Negative) 10/08/22 10/08/22 10/08/22 Range/Units 12:50 19:05 19:05 WBC (4.5-11.0) X10^3/uL RBC (4.0-5.2) X10^6/uL Hgb (12.0-16.0) g/dL Hct (36-46) % MCV (80-100) fL MCH (26-34) PG MCHC (30-36) % RDW (11.6-14.8) % Plt Count (150-400) X10^3/uL Neut % (Auto) (50-75) % Lymph % (Auto) (25-40) % [place] % (Auto) (3-14) % Eos % (Auto) (2-4) % Baso % (Auto) (0-2) % Neut # (Auto) (0578-7472) /uL Lymph # (Auto) (8032-8396) /uL [place] # (Auto) (0-900) /uL Eos # (Auto) (0-450) /uL Baso # (Auto) (0-100) /uL PT (10.1-12.7) SECONDS INR (0.9-1.3) APTT 26 (26-36) SECONDS ABG pH (7.35-7.45) ABG pCO2 (35-45) mmHg ABG pO2 (80-100) mmHg ABG HCO3 (22-26) mmol/L ABG Total CO2 (21-31) mmol/L ABG O2 Saturation (95-100) % ABG Base Excess (-2-2) mmol/L FiO2 Sodium (137-145) mmol/L Potassium (3.4-5.1) mmol/L Chloride (98-107) mmol/L Carbon Dioxide (22-32) mmol/L BUN (7-17) mg/dL Creatinine (0.52-1.04) mg/dL Estimated GFR (>60) mL/min BUN/Creatinine Ratio (6-22) Glucose (70-100) mg/dL Lactate (0.7-2.1) mmol/L Calcium (8.4-10.2) mg/dL Magnesium (1.6-2.3) mg/dL Total Bilirubin (0.2-1.3) mg/dL AST (14-36) IU/L ALT (<35) IU/L Alkaline Phosphatase (38-126) U/L Total Creatine Kinase (30-135) U/L CK-MB (CK-2) CK-MB (CK-2) Rel Index Troponin I 2.070 H* (0.01-0.034) ng/mL NT-Pro-B Natriuret Pep (<125) pg/mL Total Protein (6.3-8.2) g/dL Albumin (3.5-5.0) g/dL Globulin (1.7-4.1) g/dL Albumin/Globulin Ratio (1.0-2.8) Lipase (23-300) U/L Procalcitonin (<0.5) ng/mL Urine Color Urine Appearance Urine pH (4.5-8.0) Ur Specific [place] (1.000-1.035) Urine Protein (Negative) Urine Glucose (UA) (Negative) g/dL Urine Ketones (NEGATIVE) Urine Occult Blood (Negative) Urine Nitrate (Negative) Urine Bilirubin (NEGATIVE) Urine Urobilinogen (0.2) E.U./dL Ur Leukocyte Esterase (NEGATIVE) Urine RBC (0-5/HPF) Urine WBC (0-5/HPF) Amorphous Sediment Urine Bacteria (None) Ur Culture Indicated? U Opiates 300ng/mL cut Negative (Negative) Ur Oxycodone Screen Negative (Negative) Urine Methadone Screen Negative (Negative) Ur Barbiturates Screen Negative (Negative) U Tricyclic Antidepress Negative (Negative) Ur Phencyclidine Scrn Negative (Negative) Ur Amphetamines Screen Negative (Negative) U Methamphetamines Scrn Negative (Negative) Ur MDMA Scrn (Ecstasy) Negative (Negative) U Benzodiazepines Scrn Negative (Negative) Urine Cocaine Screen Negative (Negative) U Marijuana (THC) Screen Negative (Negative) Ethyl Alcohol ( - 10) mg/dL SARS-CoV-2 (PCR) (Negative) Influenza A (RT-PCR) (NEGATIVE) Influenza B (RT-PCR) (NEGATIVE) RSV (PCR) (Negative) 10/08/22 10/09/22 10/09/22 Range/Units 19:05 00:30 00:30 WBC (4.5-11.0) X10^3/uL RBC (4.0-5.2) X10^6/uL Hgb (12.0-16.0) g/dL Hct (36-46) % MCV (80-100) fL MCH (26-34) PG MCHC (30-36) % RDW (11.6-14.8) % Plt Count (150-400) X10^3/uL Neut % (Auto) (50-75) % Lymph % (Auto) (25-40) % [place] % (Auto) (3-14) % Eos % (Auto) (2-4) % Baso % (Auto) (0-2) % Neut # (Auto) (5689-1096) /uL Lymph # (Auto) (9716-2974) /uL [place] # (Auto) (0-900) /uL Eos # (Auto) (0-450) /uL Baso # (Auto) (0-100) /uL PT (10.1-12.7) SECONDS INR (0.9-1.3) APTT 76 H* D (26-36) SECONDS ABG pH (7.35-7.45) ABG pCO2 (35-45) mmHg ABG pO2 (80-100) mmHg ABG HCO3 (22-26) mmol/L ABG Total CO2 (21-31) mmol/L ABG O2 Saturation (95-100) % ABG Base Excess (-2-2) mmol/L FiO2 Sodium 139 (137-145) mmol/L Potassium 4.7 D (3.4-5.1) mmol/L Chloride 108 H (98-107) mmol/L Carbon Dioxide 26 (22-32) mmol/L BUN 12 (7-17) mg/dL Creatinine 0.70 (0.52-1.04) mg/dL Estimated GFR > 60 (>60) mL/min BUN/Creatinine Ratio 17.1 (6-22) Glucose 174 H (70-100) mg/dL Lactate (0.7-2.1) mmol/L Calcium 7.0 L (8.4-10.2) mg/dL Magnesium 2.1 (1.6-2.3) mg/dL Total Bilirubin 0.3 (0.2-1.3) mg/dL AST 115 H (14-36) IU/L ALT 80 H (<35) IU/L Alkaline Phosphatase 124 (38-126) U/L Total Creatine Kinase (30-135) U/L CK-MB (CK-2) CK-MB (CK-2) Rel Index Troponin I 3.540 H* (0.01-0.034) ng/mL NT-Pro-B Natriuret Pep (<125) pg/mL Total Protein 5.4 L (6.3-8.2) g/dL Albumin 3.0 L (3.5-5.0) g/dL Globulin 2.4 (1.7-4.1) g/dL Albumin/Globulin Ratio 1.3 (1.0-2.8) Lipase (23-300) U/L Procalcitonin (<0.5) ng/mL Urine Color Urine Appearance Urine pH (4.5-8.0) Ur Specific [place] (1.000-1.035) Urine Protein (Negative) Urine Glucose (UA) (Negative) g/dL Urine Ketones (NEGATIVE) Urine Occult Blood (Negative) Urine Nitrate (Negative) Urine Bilirubin (NEGATIVE) Urine Urobilinogen (0.2) E.U./dL Ur Leukocyte Esterase (NEGATIVE) Urine RBC (0-5/HPF) Urine WBC (0-5/HPF) Amorphous Sediment Urine Bacteria (None) Ur Culture Indicated? U Opiates 300ng/mL cut (Negative) Ur Oxycodone Screen (Negative) Urine Methadone Screen (Negative) Ur Barbiturates Screen (Negative) U Tricyclic Antidepress (Negative) Ur Phencyclidine Scrn (Negative) Ur Amphetamines Screen (Negative) U Methamphetamines Scrn (Negative) Ur MDMA Scrn (Ecstasy) (Negative) U Benzodiazepines Scrn (Negative) Urine Cocaine Screen (Negative) U Marijuana (THC) Screen (Negative) Ethyl Alcohol ( - 10) mg/dL SARS-CoV-2 (PCR) (Negative) Influenza A (RT-PCR) (NEGATIVE) Influenza B (RT-PCR) (NEGATIVE) RSV (PCR) (Negative) 10/09/22 10/09/22 10/09/22 Range/Units 07:30 07:30 07:30 WBC 6.3 (4.5-11.0) X10^3/uL RBC 3.76 L (4.0-5.2) X10^6/uL Hgb 10.5 L (12.0-16.0) g/dL Hct 32.2 L (36-46) % MCV 85.5 (80-100) fL MCH 27.9 (26-34) PG MCHC 32.7 (30-36) % RDW 19.2 H (11.6-14.8) % Plt Count 136 L (150-400) X10^3/uL Neut % (Auto) 74.2 (50-75) % Lymph % (Auto) 19.0 L (25-40) % [place] % (Auto) 6.1 (3-14) % Eos % (Auto) 0.2 L (2-4) % Baso % (Auto) 0.5 (0-2) % Neut # (Auto) 4700 (4353-7197) /uL Lymph # (Auto) 1200 (9292-3695) /uL [place] # (Auto) 400 (0-900) /uL Eos # (Auto) 0 (0-450) /uL Baso # (Auto) 0 (0-100) /uL PT 14.3 H (10.1-12.7) SECONDS INR 1.2 (0.9-1.3) APTT (26-36) SECONDS ABG pH (7.35-7.45) ABG pCO2 (35-45) mmHg ABG pO2 (80-100) mmHg ABG HCO3 (22-26) mmol/L ABG Total CO2 (21-31) mmol/L ABG O2 Saturation (95-100) % ABG Base Excess (-2-2) mmol/L FiO2 Sodium (137-145) mmol/L Potassium (3.4-5.1) mmol/L Chloride (98-107) mmol/L Carbon Dioxide (22-32) mmol/L BUN (7-17) mg/dL Creatinine (0.52-1.04) mg/dL Estimated GFR (>60) mL/min BUN/Creatinine Ratio (6-22) Glucose (70-100) mg/dL Lactate (0.7-2.1) mmol/L Calcium (8.4-10.2) mg/dL Magnesium (1.6-2.3) mg/dL Total Bilirubin (0.2-1.3) mg/dL AST (14-36) IU/L ALT (<35) IU/L Alkaline Phosphatase (38-126) U/L Total Creatine Kinase (30-135) U/L CK-MB (CK-2) CK-MB (CK-2) Rel Index Troponin I 3.520 H* (0.01-0.034) ng/mL NT-Pro-B Natriuret Pep (<125) pg/mL Total Protein (6.3-8.2) g/dL Albumin (3.5-5.0) g/dL Globulin (1.7-4.1) g/dL Albumin/Globulin Ratio (1.0-2.8) Lipase (23-300) U/L Procalcitonin (<0.5) ng/mL Urine Color Urine Appearance Urine pH (4.5-8.0) Ur Specific [place] (1.000-1.035) Urine Protein (Negative) Urine Glucose (UA) (Negative) g/dL Urine Ketones (NEGATIVE) Urine Occult Blood (Negative) Urine Nitrate (Negative) Urine Bilirubin (NEGATIVE) Urine Urobilinogen (0.2) E.U./dL Ur Leukocyte Esterase (NEGATIVE) Urine RBC (0-5/HPF) Urine WBC (0-5/HPF) Amorphous Sediment Urine Bacteria (None) Ur Culture Indicated? U Opiates 300ng/mL cut (Negative) Ur Oxycodone Screen (Negative) Urine Methadone Screen (Negative) Ur Barbiturates Screen (Negative) U Tricyclic Antidepress (Negative) Ur Phencyclidine Scrn (Negative) Ur Amphetamines Screen (Negative) U Methamphetamines Scrn (Negative) Ur MDMA Scrn (Ecstasy) (Negative) U Benzodiazepines Scrn (Negative) Urine Cocaine Screen (Negative) U Marijuana (THC) Screen (Negative) Ethyl Alcohol ( - 10) mg/dL SARS-CoV-2 (PCR) (Negative) Influenza A (RT-PCR) (NEGATIVE) Influenza B (RT-PCR) (NEGATIVE) RSV (PCR) (Negative) 10/09/22 10/09/22 10/09/22 Range/Units 07:30 07:30 07:30 WBC (4.5-11.0) X10^3/uL RBC (4.0-5.2) X10^6/uL Hgb (12.0-16.0) g/dL Hct (36-46) % MCV (80-100) fL MCH (26-34) PG MCHC (30-36) % RDW (11.6-14.8) % Plt Count (150-400) X10^3/uL Neut % (Auto) (50-75) % Lymph % (Auto) (25-40) % [place] % (Auto) (3-14) % Eos % (Auto) (2-4) % Baso % (Auto) (0-2) % Neut # (Auto) (0254-2933) /uL Lymph # (Auto) (7925-8818) /uL [place] # (Auto) (0-900) /uL Eos # (Auto) (0-450) /uL Baso # (Auto) (0-100) /uL PT (10.1-12.7) SECONDS INR (0.9-1.3) APTT 56 H D (26-36) SECONDS ABG pH (7.35-7.45) ABG pCO2 (35-45) mmHg ABG pO2 (80-100) mmHg ABG HCO3 (22-26) mmol/L ABG Total CO2 (21-31) mmol/L ABG O2 Saturation (95-100) % ABG Base Excess (-2-2) mmol/L FiO2 Sodium 137 (137-145) mmol/L Potassium 3.7 (3.4-5.1) mmol/L Chloride 106 (98-107) mmol/L Carbon Dioxide 29 (22-32) mmol/L BUN 12 (7-17) mg/dL Creatinine 0.65 (0.52-1.04) mg/dL Estimated GFR > 60 (>60) mL/min BUN/Creatinine Ratio 18.5 (6-22) Glucose 117 H (70-100) mg/dL Lactate 0.8 (0.7-2.1) mmol/L Calcium 7.0 L (8.4-10.2) mg/dL Magnesium (1.6-2.3) mg/dL Total Bilirubin 0.3 (0.2-1.3) mg/dL AST 136 H (14-36) IU/L ALT 112 H (<35) IU/L Alkaline Phosphatase 121 (38-126) U/L Total Creatine Kinase (30-135) U/L CK-MB (CK-2) CK-MB (CK-2) Rel Index Troponin I (0.01-0.034) ng/mL NT-Pro-B Natriuret Pep (<125) pg/mL Total Protein 5.1 L (6.3-8.2) g/dL Albumin 2.8 L (3.5-5.0) g/dL Globulin 2.3 (1.7-4.1) g/dL Albumin/Globulin Ratio 1.2 (1.0-2.8) Lipase 62 (23-300) U/L Procalcitonin 0.12 (<0.5) ng/mL Urine Color Urine Appearance Urine pH (4.5-8.0) Ur Specific [place] (1.000-1.035) Urine Protein (Negative) Urine Glucose (UA) (Negative) g/dL Urine Ketones (NEGATIVE) Urine Occult Blood (Negative) Urine Nitrate (Negative) Urine Bilirubin (NEGATIVE) Urine Urobilinogen (0.2) E.U./dL Ur Leukocyte Esterase (NEGATIVE) Urine RBC (0-5/HPF) Urine WBC (0-5/HPF) Amorphous Sediment Urine Bacteria (None) Ur Culture Indicated? U Opiates 300ng/mL cut (Negative) Ur Oxycodone Screen (Negative) Urine Methadone Screen (Negative) Ur Barbiturates Screen (Negative) U Tricyclic Antidepress (Negative) Ur Phencyclidine Scrn (Negative) Ur Amphetamines Screen (Negative) U Methamphetamines Scrn (Negative) Ur MDMA Scrn (Ecstasy) (Negative) U Benzodiazepines Scrn (Negative) Urine Cocaine Screen (Negative) U Marijuana (THC) Screen (Negative) Ethyl Alcohol ( - 10) mg/dL SARS-CoV-2 (PCR) (Negative) Influenza A (RT-PCR) (NEGATIVE) Influenza B (RT-PCR) (NEGATIVE) RSV (PCR) (Negative) 10/09/22 10/09/22 10/10/22 Range/Units 13:30 19:25 01:39 WBC (4.5-11.0) X10^3/uL RBC (4.0-5.2) X10^6/uL Hgb (12.0-16.0) g/dL Hct (36-46) % MCV (80-100) fL MCH (26-34) PG MCHC (30-36) % RDW (11.6-14.8) % Plt Count (150-400) X10^3/uL Neut % (Auto) (50-75) % Lymph % (Auto) (25-40) % [place] % (Auto) (3-14) % Eos % (Auto) (2-4) % Baso % (Auto) (0-2) % Neut # (Auto) (9193-9285) /uL Lymph # (Auto) (6080-1032) /uL [place] # (Auto) (0-900) /uL Eos # (Auto) (0-450) /uL Baso # (Auto) (0-100) /uL PT (10.1-12.7) SECONDS INR (0.9-1.3) APTT 50 H 50 H 43 H (26-36) SECONDS ABG pH (7.35-7.45) ABG pCO2 (35-45) mmHg ABG pO2 (80-100) mmHg ABG HCO3 (22-26) mmol/L ABG Total CO2 (21-31) mmol/L ABG O2 Saturation (95-100) % ABG Base Excess (-2-2) mmol/L FiO2 Sodium (137-145) mmol/L Potassium (3.4-5.1) mmol/L Chloride (98-107) mmol/L Carbon Dioxide (22-32) mmol/L BUN (7-17) mg/dL Creatinine (0.52-1.04) mg/dL Estimated GFR (>60) mL/min BUN/Creatinine Ratio (6-22) Glucose (70-100) mg/dL Lactate (0.7-2.1) mmol/L Calcium (8.4-10.2) mg/dL Magnesium (1.6-2.3) mg/dL Total Bilirubin (0.2-1.3) mg/dL AST (14-36) IU/L ALT (<35) IU/L Alkaline Phosphatase (38-126) U/L Total Creatine Kinase (30-135) U/L CK-MB (CK-2) CK-MB (CK-2) Rel Index Troponin I (0.01-0.034) ng/mL NT-Pro-B Natriuret Pep (<125) pg/mL Total Protein (6.3-8.2) g/dL Albumin (3.5-5.0) g/dL Globulin (1.7-4.1) g/dL Albumin/Globulin Ratio (1.0-2.8) Lipase (23-300) U/L Procalcitonin (<0.5) ng/mL Urine Color Urine Appearance Urine pH (4.5-8.0) Ur Specific [place] (1.000-1.035) Urine Protein (Negative) Urine Glucose (UA) (Negative) g/dL Urine Ketones (NEGATIVE) Urine Occult Blood (Negative) Urine Nitrate (Negative) Urine Bilirubin (NEGATIVE) Urine Urobilinogen (0.2) E.U./dL Ur Leukocyte Esterase (NEGATIVE) Urine RBC (0-5/HPF) Urine WBC (0-5/HPF) Amorphous Sediment Urine Bacteria (None) Ur Culture Indicated? U Opiates 300ng/mL cut (Negative) Ur Oxycodone Screen (Negative) Urine Methadone Screen (Negative) Ur Barbiturates Screen (Negative) U Tricyclic Antidepress (Negative) Ur Phencyclidine Scrn (Negative) Ur Amphetamines Screen (Negative) U Methamphetamines Scrn (Negative) Ur MDMA Scrn (Ecstasy) (Negative) U Benzodiazepines Scrn (Negative) Urine Cocaine Screen (Negative) U Marijuana (THC) Screen (Negative) Ethyl Alcohol ( - 10) mg/dL SARS-CoV-2 (PCR) (Negative) Influenza A (RT-PCR) (NEGATIVE) Influenza B (RT-PCR) (NEGATIVE) RSV (PCR) (Negative) 10/10/22 10/10/22 10/10/22 Range/Units 06:20 06:20 06:20 WBC 4.1 L (4.5-11.0) X10^3/uL RBC 3.59 L (4.0-5.2) X10^6/uL Hgb 9.9 L (12.0-16.0) g/dL Hct 30.4 L (36-46) % MCV 84.7 (80-100) fL MCH 27.5 (26-34) PG MCHC 32.5 (30-36) % RDW 18.8 H (11.6-14.8) % Plt Count 114 L (150-400) X10^3/uL Neut % (Auto) 59.3 (50-75) % Lymph % (Auto) 32.2 (25-40) % [place] % (Auto) 7.7 (3-14) % Eos % (Auto) 0.2 L (2-4) % Baso % (Auto) 0.6 (0-2) % Neut # (Auto) 2400 (8936-8243) /uL Lymph # (Auto) 1300 (1667-2117) /uL [place] # (Auto) 300 (0-900) /uL Eos # (Auto) 0 (0-450) /uL Baso # (Auto) 0 (0-100) /uL PT (10.1-12.7) SECONDS INR (0.9-1.3) APTT 44 H (26-36) SECONDS ABG pH (7.35-7.45) ABG pCO2 (35-45) mmHg ABG pO2 (80-100) mmHg ABG HCO3 (22-26) mmol/L ABG Total CO2 (21-31) mmol/L ABG O2 Saturation (95-100) % ABG Base Excess (-2-2) mmol/L FiO2 Sodium 138 (137-145) mmol/L Potassium 3.3 L (3.4-5.1) mmol/L Chloride 105 (98-107) mmol/L Carbon Dioxide 31 (22-32) mmol/L BUN 7 (7-17) mg/dL Creatinine 0.58 (0.52-1.04) mg/dL Estimated GFR > 60 (>60) mL/min BUN/Creatinine Ratio 12.1 (6-22) Glucose 97 (70-100) mg/dL Lactate (0.7-2.1) mmol/L Calcium 7.6 L (8.4-10.2) mg/dL Magnesium (1.6-2.3) mg/dL Total Bilirubin 0.3 (0.2-1.3) mg/dL AST 202 H (14-36) IU/L ALT 260 H (<35) IU/L Alkaline Phosphatase 114 (38-126) U/L Total Creatine Kinase (30-135) U/L CK-MB (CK-2) CK-MB (CK-2) Rel Index Troponin I 1.600 H* (0.01-0.034) ng/mL NT-Pro-B Natriuret Pep 1530 H (<125) pg/mL Total Protein 5.1 L (6.3-8.2) g/dL Albumin 2.8 L (3.5-5.0) g/dL Globulin 2.3 (1.7-4.1) g/dL Albumin/Globulin Ratio 1.2 (1.0-2.8) Lipase (23-300) U/L Procalcitonin (<0.5) ng/mL Urine Color Urine Appearance Urine pH (4.5-8.0) Ur Specific [place] (1.000-1.035) Urine Protein (Negative) Urine Glucose (UA) (Negative) g/dL Urine Ketones (NEGATIVE) Urine Occult Blood (Negative) Urine Nitrate (Negative) Urine Bilirubin (NEGATIVE) Urine Urobilinogen (0.2) E.U./dL Ur Leukocyte Esterase (NEGATIVE) Urine RBC (0-5/HPF) Urine WBC (0-5/HPF) Amorphous Sediment Urine Bacteria (None) Ur Culture Indicated? U Opiates 300ng/mL cut (Negative) Ur Oxycodone Screen (Negative) Urine Methadone Screen (Negative) Ur Barbiturates Screen (Negative) U Tricyclic Antidepress (Negative) Ur Phencyclidine Scrn (Negative) Ur Amphetamines Screen (Negative) U Methamphetamines Scrn (Negative) Ur MDMA Scrn (Ecstasy) (Negative) U Benzodiazepines Scrn (Negative) Urine Cocaine Screen (Negative) U Marijuana (THC) Screen (Negative) Ethyl Alcohol ( - 10) mg/dL SARS-CoV-2 (PCR) (Negative) Influenza A (RT-PCR) (NEGATIVE) Influenza B (RT-PCR) (NEGATIVE) RSV (PCR) (Negative) 10/10/22 10/10/22 10/10/22 Range/Units 12:16 12:16 18:29 WBC (4.5-11.0) X10^3/uL RBC (4.0-5.2) X10^6/uL Hgb (12.0-16.0) g/dL Hct (36-46) % MCV (80-100) fL MCH (26-34) PG MCHC (30-36) % RDW (11.6-14.8) % Plt Count (150-400) X10^3/uL Neut % (Auto) (50-75) % Lymph % (Auto) (25-40) % [place] % (Auto) (3-14) % Eos % (Auto) (2-4) % Baso % (Auto) (0-2) % Neut # (Auto) (9668-8222) /uL Lymph # (Auto) (3605-7843) /uL [place] # (Auto) (0-900) /uL Eos # (Auto) (0-450) /uL Baso # (Auto) (0-100) /uL PT (10.1-12.7) SECONDS INR (0.9-1.3) APTT 46 H 46 H (26-36) SECONDS ABG pH (7.35-7.45) ABG pCO2 (35-45) mmHg ABG pO2 (80-100) mmHg ABG HCO3 (22-26) mmol/L ABG Total CO2 (21-31) mmol/L ABG O2 Saturation (95-100) % ABG Base Excess (-2-2) mmol/L FiO2 Sodium (137-145) mmol/L Potassium (3.4-5.1) mmol/L Chloride (98-107) mmol/L Carbon Dioxide (22-32) mmol/L BUN (7-17) mg/dL Creatinine (0.52-1.04) mg/dL Estimated GFR (>60) mL/min BUN/Creatinine Ratio (6-22) Glucose (70-100) mg/dL Lactate (0.7-2.1) mmol/L Calcium (8.4-10.2) mg/dL Magnesium 1.5 L (1.6-2.3) mg/dL Total Bilirubin (0.2-1.3) mg/dL AST (14-36) IU/L ALT (<35) IU/L Alkaline Phosphatase (38-126) U/L Total Creatine Kinase (30-135) U/L CK-MB (CK-2) CK-MB (CK-2) Rel Index Troponin I (0.01-0.034) ng/mL NT-Pro-B Natriuret Pep (<125) pg/mL Total Protein (6.3-8.2) g/dL Albumin (3.5-5.0) g/dL Globulin (1.7-4.1) g/dL Albumin/Globulin Ratio (1.0-2.8) Lipase (23-300) U/L Procalcitonin (<0.5) ng/mL Urine Color Urine Appearance Urine pH (4.5-8.0) Ur Specific [place] (1.000-1.035) Urine Protein (Negative) Urine Glucose (UA) (Negative) g/dL Urine Ketones (NEGATIVE) Urine Occult Blood (Negative) Urine Nitrate (Negative) Urine Bilirubin (NEGATIVE) Urine Urobilinogen (0.2) E.U./dL Ur Leukocyte Esterase (NEGATIVE) Urine RBC (0-5/HPF) Urine WBC (0-5/HPF) Amorphous Sediment Urine Bacteria (None) Ur Culture Indicated? U Opiates 300ng/mL cut (Negative) Ur Oxycodone Screen (Negative) Urine Methadone Screen (Negative) Ur Barbiturates Screen (Negative) U Tricyclic Antidepress (Negative) Ur Phencyclidine Scrn (Negative) Ur Amphetamines Screen (Negative) U Methamphetamines Scrn (Negative) Ur MDMA Scrn (Ecstasy) (Negative) U Benzodiazepines Scrn (Negative) Urine Cocaine Screen (Negative) U Marijuana (THC) Screen (Negative) Ethyl Alcohol ( - 10) mg/dL SARS-CoV-2 (PCR) (Negative) Influenza A (RT-PCR) (NEGATIVE) Influenza B (RT-PCR) (NEGATIVE) RSV (PCR) (Negative) 10/11/22 10/11/22 10/11/22 Range/Units 01:00 06:07 06:07 WBC 3.9 L (4.5-11.0) X10^3/uL RBC 3.07 L (4.0-5.2) X10^6/uL Hgb 8.6 L (12.0-16.0) g/dL Hct 25.8 L (36-46) % MCV 84.3 (80-100) fL MCH 28.2 (26-34) PG MCHC 33.4 (30-36) % RDW 18.2 H (11.6-14.8) % Plt Count 105 L (150-400) X10^3/uL Neut % (Auto) 57.5 (50-75) % Lymph % (Auto) 32.9 (25-40) % [place] % (Auto) 9.2 (3-14) % Eos % (Auto) 0.2 L (2-4) % Baso % (Auto) 0.2 (0-2) % Neut # (Auto) 2200 (9583-2173) /uL Lymph # (Auto) 1300 (1157-7615) /uL [place] # (Auto) 400 (0-900) /uL Eos # (Auto) 0 (0-450) /uL Baso # (Auto) 0 (0-100) /uL PT (10.1-12.7) SECONDS INR (0.9-1.3) APTT 55 H D (26-36) SECONDS ABG pH (7.35-7.45) ABG pCO2 (35-45) mmHg ABG pO2 (80-100) mmHg ABG HCO3 (22-26) mmol/L ABG Total CO2 (21-31) mmol/L ABG O2 Saturation (95-100) % ABG Base Excess (-2-2) mmol/L FiO2 Sodium 137 (137-145) mmol/L Potassium 3.3 L (3.4-5.1) mmol/L Chloride 112 H (98-107) mmol/L Carbon Dioxide 24 (22-32) mmol/L BUN 4 L (7-17) mg/dL Creatinine 0.48 L (0.52-1.04) mg/dL Estimated GFR > 60 (>60) mL/min BUN/Creatinine Ratio 8.3 (6-22) Glucose 84 (70-100) mg/dL Lactate (0.7-2.1) mmol/L Calcium 6.5 L (8.4-10.2) mg/dL Magnesium (1.6-2.3) mg/dL Total Bilirubin 0.2 (0.2-1.3) mg/dL AST 96 H (14-36) IU/L ALT 210 H (<35) IU/L Alkaline Phosphatase 93 (38-126) U/L Total Creatine Kinase (30-135) U/L CK-MB (CK-2) CK-MB (CK-2) Rel Index Troponin I 0.857 H* (0.01-0.034) ng/mL NT-Pro-B Natriuret Pep (<125) pg/mL Total Protein 4.4 L (6.3-8.2) g/dL Albumin 2.3 L (3.5-5.0) g/dL Globulin 2.1 (1.7-4.1) g/dL Albumin/Globulin Ratio 1.1 (1.0-2.8) Lipase (23-300) U/L Procalcitonin (<0.5) ng/mL Urine Color Urine Appearance Urine pH (4.5-8.0) Ur Specific [place] (1.000-1.035) Urine Protein (Negative) Urine Glucose (UA) (Negative) g/dL Urine Ketones (NEGATIVE) Urine Occult Blood (Negative) Urine Nitrate (Negative) Urine Bilirubin (NEGATIVE) Urine Urobilinogen (0.2) E.U./dL Ur Leukocyte Esterase (NEGATIVE) Urine RBC (0-5/HPF) Urine WBC (0-5/HPF) Amorphous Sediment Urine Bacteria (None) Ur Culture Indicated? U Opiates 300ng/mL cut (Negative) Ur Oxycodone Screen (Negative) Urine Methadone Screen (Negative) Ur Barbiturates Screen (Negative) U Tricyclic Antidepress (Negative) Ur Phencyclidine Scrn (Negative) Ur Amphetamines Screen (Negative) U Methamphetamines Scrn (Negative) Ur MDMA Scrn (Ecstasy) (Negative) U Benzodiazepines Scrn (Negative) Urine Cocaine Screen (Negative) U Marijuana (THC) Screen (Negative) Ethyl Alcohol ( - 10) mg/dL SARS-CoV-2 (PCR) (Negative) Influenza A (RT-PCR) (NEGATIVE) Influenza B (RT-PCR) (NEGATIVE) RSV (PCR) (Negative) 10/11/22 10/11/22 Range/Units 17:44 17:44 WBC 4.5 (4.5-11.0) X10^3/uL RBC 3.65 L (4.0-5.2) X10^6/uL Hgb 10.1 L (12.0-16.0) g/dL Hct 30.8 L (36-46) % MCV 84.4 (80-100) fL MCH 27.7 (26-34) PG MCHC 32.9 (30-36) % RDW 18.4 H (11.6-14.8) % Plt Count 128 L (150-400) X10^3/uL Neut % (Auto) 67.2 (50-75) % Lymph % (Auto) 22.9 L (25-40) % [place] % (Auto) 9.0 (3-14) % Eos % (Auto) 0.3 L (2-4) % Baso % (Auto) 0.6 (0-2) % Neut # (Auto) 3000 (8565-2624) /uL Lymph # (Auto) 1000 L (9089-9104) /uL [place] # (Auto) 400 (0-900) /uL Eos # (Auto) 0 (0-450) /uL Baso # (Auto) 0 (0-100) /uL PT (10.1-12.7) SECONDS INR (0.9-1.3) APTT (26-36) SECONDS ABG pH (7.35-7.45) ABG pCO2 (35-45) mmHg ABG pO2 (80-100) mmHg ABG HCO3 (22-26) mmol/L ABG Total CO2 (21-31) mmol/L ABG O2 Saturation (95-100) % ABG Base Excess (-2-2) mmol/L FiO2 Sodium 138 (137-145) mmol/L Potassium 4.4 (3.4-5.1) mmol/L Chloride 106 (98-107) mmol/L Carbon Dioxide 29 (22-32) mmol/L BUN 5 L (7-17) mg/dL Creatinine 0.60 (0.52-1.04) mg/dL Estimated GFR > 60 (>60) mL/min BUN/Creatinine Ratio 8.3 (6-22) Glucose 90 (70-100) mg/dL Lactate (0.7-2.1) mmol/L Calcium 8.0 L (8.4-10.2) mg/dL Magnesium 1.9 (1.6-2.3) mg/dL Total Bilirubin 0.3 (0.2-1.3) mg/dL AST 76 H (14-36) IU/L ALT 231 H (<35) IU/L Alkaline Phosphatase 120 (38-126) U/L Total Creatine Kinase (30-135) U/L CK-MB (CK-2) CK-MB (CK-2) Rel Index Troponin I (0.01-0.034) ng/mL NT-Pro-B Natriuret Pep (<125) pg/mL Total Protein 5.5 L (6.3-8.2) g/dL Albumin 3.1 L (3.5-5.0) g/dL Globulin 2.4 (1.7-4.1) g/dL Albumin/Globulin Ratio 1.3 (1.0-2.8) Lipase (23-300) U/L Procalcitonin (<0.5) ng/mL Urine Color Urine Appearance Urine pH (4.5-8.0) Ur Specific [place] (1.000-1.035) Urine Protein (Negative) Urine Glucose (UA) (Negative) g/dL Urine Ketones (NEGATIVE) Urine Occult Blood (Negative) Urine Nitrate (Negative) Urine Bilirubin (NEGATIVE) Urine Urobilinogen (0.2) E.U./dL Ur Leukocyte Esterase (NEGATIVE) Urine RBC (0-5/HPF) Urine WBC (0-5/HPF) Amorphous Sediment Urine Bacteria (None) Ur Culture Indicated? U Opiates 300ng/mL cut (Negative) Ur Oxycodone Screen (Negative) Urine Methadone Screen (Negative) Ur Barbiturates Screen (Negative) U Tricyclic Antidepress (Negative) Ur Phencyclidine Scrn (Negative) Ur Amphetamines Screen (Negative) U Methamphetamines Scrn (Negative) Ur MDMA Scrn (Ecstasy) (Negative) U Benzodiazepines Scrn (Negative) Urine Cocaine Screen (Negative) U Marijuana (THC) Screen (Negative) Ethyl Alcohol ( - 10) mg/dL SARS-CoV-2 (PCR) (Negative) Influenza A (RT-PCR) (NEGATIVE) Influenza B (RT-PCR) (NEGATIVE) RSV (PCR) (Negative) Point of Care Testing Stool Occult Blood Negative MDM Narrative Medical decision making narrative: This is a 57-year-old female who presented with possible flu-like symptoms patient had a cardiac arrest in the waiting room. Patient had approximately 10 minutes of CPR total, she received 1 mg of epi, amiodarone 300 mg apand pear to be in VFib she was defibrillated and cardioverted to AFib which ultimately became a sinus rhythm. Patient had almost immediate regain of pulses and within several minutes was conversant. Initial labs show low calcium, potassium is relatively normal she is had issues in the past. She appeared to be in VFib arrest, she responded well to diff fibrillation converted to AFib and is now conversant. Patient is able to give history, she also received epi 1 mg, amiodarone 300 mg continuing with 6 hour infusion. Patient has been persistently hypotensive initially was started norepinephrine but after conversation with Cardiology they recommend phenylephrine and changed over and patient has responded well maintaining a map greater than 65 but has had a systolic often in the 100 range. Patient received fluids she did not appear significantly fluid overloaded but is high risk. Her labs and imaging showed some mild electrolyte abnormalities with potassium of 3.3, calcium was also low, magnesium is technically normal but was recommended goals of potassium of greater than 4 and 2 for magnesium. Patient's ABG post CPR is essentially normal. Patient does not have any renal dysfunction, no significant anemia, normal LFTs otherwise, troponin on repeat did trend upwards but this could very easily be from cardiac shock and CPR will continue to trend. CTA shows pulmonary artery hypertension possibly from enlarged main pulmonary artery, no PE or other clear cause CT abdomen pelvis also does not show a clear cause for her cardiac arrest today, she has multiple rib fractures from her CPR. Patient has had some pain she responds well to fentanyl. She has been oxygenating appropriately but has been on 2 L. patient's urine shows possible infection so she was covered with an antibiotic. Had multiple consultations with Cardiology through [facility] as well as Dr. Benavides at [facility]. No bed availability continuing to seek placement with [facility] through regional hotline. Dr. Bazan from Cardiology called back her stat echo shows a decrease in her EF to 35 % which is new from her priors as well as focal wall motion abnormalities he does recommend continue with aspirin, high-dose statin, heparin and needs transfer for cardiac catheterization in ICD placement. Patient signed out to Dr. Garcia select 11/14, patient has repeat labs pending this evening, plan to continue amiodarone, monitor electrolytes, phenylephrine and attempting to transfer. There is critical bed shortage in the region and patient has been placed on [facility] regional hotline list. Radha-patient signed out to me by Dr. Price. He was seen evaluated patient myself she. Sh presently awake alert and pleasant. She has no complaints. She actually did have a nonsustained run of V. She continues on amiodarone drip. Awaiting placement is. Troponin continues to rise. She is still requiring a touch of vasopressor to help with blood pressure support. EF 35-40%. Once IV amiodarone is done will likely need p.o. amiodarone. Significant bed critical shortage she is on multiple wait list and [facility] has been notified. Dr mercado 10/09/22: Received turned over. Review patient's history and physical and workup performed up to this point. Patient has been stable day. She is off of blood pressure medications. I did discuss the case with Dr. Thorne on-call for cardiology who recommended continuing the patient on amiodarone IV. We will hold on Lasix for now unless she develops fluid overload. Still attempting to find placement for patient. Care turned over to Dr. Miller to continue to observe overnight. Dr. Miller 10/09/22 1800 -patient received in sign-out. I have performed an independent physical exam. No significant changes over the night, signed out to Dr. Jess mercado: 10/10/22 received turned over had reviewed the 24 hour events for the patient. She continues to be stable. Late in the afternoon she stated that she was having some fluttering in her chest. There was no ectopy on the monitor. Repeat EKG shows sinus rhythm with a ventricular rate of 80. Her potassium and magnesium were replaced. Urine culture today resulted as no growth so her Rocephin was discontinued. She continues to be on amiodarone. She continues to be on the heparin drip. Care turned over to Dr. Barkley to continue to observe and disposition. Critical Care Time <Isamar Price DO - Last Filed: 10/09/22 12:57> Critical Care Time Critical Care Time: Yes Total Critical Care Time: 45 Attestation: The high probability of a clinically significant, sudden or life threatening deterioration of the [cardiac, pulm] system(s) required my full and direct attention, intervention and personal management. The aggregate critical care time was [45] minutes. This time is in addition to time spent performing reported procedures but includes the following: [x] Data Review and interpretation [x] Patient assessment and monitoring of vital signs [x] Documentation [x] Medication orders and management <Natalie Barkley MD - Last Filed: 10/12/22 06:24> Critical Care Time Total Critical Care Time: 372 Attestation: Critical care time is separate from other billable procedures. There is a high probability of a significant, sudden or life-threatening deterioration that requires my full and direct attention, intervention and personal management. This critical care time includes consultation with family and other consulting doctors, review of records, and interpretation of data from labs, EKGs and imaging as well as managements of VFib arrest with extended emergency department stay post arrest due to critical bed shortage is across [facility]. There have been multiple discussions with physicians, cardiologists as well as coordinating supervisors at numerous hospitals trying to attempt to find appropriate care placement. Throughout her emergency department 94 hour emergency department stay we have been managing amiodarone and heparin drips with continuous cardiac monitoring and ICU level care. Discharge Plan Departure Patient Disposition: [facility] Clinical Impression: Cardiac arrest with ventricular fibrillation, Hypokalemia, Hypocalcemia, Enlarged pulmonary artery Prescriptions: No Action levothyroxine 125 mcg tablet 125 mcg PO DAILY Qty: 90 3RF Label Comments: states has not taken for a long time fluticasone propionate [Allergy Relief (fluticasone)] 50 mcg/actuation spray,suspension 2 spray intranasal DAILY PRN (Reason: allergy symptoms) Qty: 16 6RF Rx Instructions: administer into each nostril albuterol sulfate 90 mcg/actuation HFA aerosol inhaler 2 puff inhalation Q6H PRN (Reason: shortness of breath or wheezing) Qty: 6.7 5RF metoprolol succinate 25 mg tablet extended release 24 hr 12.5 mg PO DAILY Qty: 90 3RF pramipexole 0.5 mg tablet 0.5 mg PO BEDTIME Qty: 90 1RF ondansetron 4 mg tablet,disintegrating 4 mg PO Q6H PRN (Reason: nausea and vomiting) Qty: 7 0RF aspirin [Adult Low Dose Aspirin] 81 mg tablet,delayed release (DR/EC) 81 mg PO DAILY famotidine 20 mg tablet 20 mg PO BID lisinopril 2.5 mg tablet 1.25 mg PO DAILY rosuvastatin 20 mg tablet 20 mg PO DAILY bupropion HCl 75 mg tablet 75 mg PO BID Eliquis 5 mg tablet 5 mg PO BID furosemide 20 mg tablet 20 mg PO DAILY methotrexate sodium 2.5 mg tablet 20 mg PO QWEEK Rx Instructions: 4 tabs in AM, 4 tabs in PM QWEEK fluticasone propionate 220 mcg/actuation HFA aerosol inhaler 2 puff inhalation BID Qty: 12 3RF potassium chloride 8 mEq capsule, extended release 8 meq PO DAILY Qty: 90 3RF Referrals: Jesse Jain MD [Primary Care Provider] -
[2022-10-08] MEDS: AMIODARONE 360 MG/200 ML PIGGYBACK 33.33 MG IV (10:50)
[2022-10-08 10:53] LABS: Procalcitonin < 0.03 ng/mL (<0.5)
[2022-10-08 10:58] LABS: Prothrombin Time 11.3 SECONDS (10.1-12.7)
[2022-10-08 11:00] LABS: PTT Partial Thromboplastin Tim 29 SECONDS (26-36)
[2022-10-08 11:03] LABS: Influenza A - CEPHEID Flu A NEGATIVE (NEGATIVE); Influenza B - CEPHEID Flu B NEGATIVE (NEGATIVE); Respiratory Syncytial Virus Negative (Negative)
[2022-10-08 11:04] LABS: Creatine Kinase 32 U/L (30-135); Magnesium 1.8 mg/dL (1.6-2.3)
[2022-10-08 11:04] LABS: COVID-19 CEPHEID 4-PLEX PCR Negative (Negative)
[2022-10-08 11:06] LABS: HCO3 ABG 23 mmol/L (22-26); Oxygen Saturation ABG 99 % (95-100); PCO2 ABG 37.3 mmHg (35-45); PO2 ABG 144 mmHg (80-100); TCO2 ABG 24 mmol/L (21-31)
[2022-10-08 11:07] LABS: Fractionated Inspired Oxygen 80
[2022-10-08] MEDS: ONDANSETRON 4 MG/2 ML INJ IV (11:09)
[2022-10-08] MEDS: NOREPINEPHRINE BITARTRATE/D5W 4 MG/250 ML PLAST..BAG 30 MG IV ×2 (11:11→17:35)
[2022-10-08] MEDS: CALCIUM GLUCONATE 9.3 MEQ in SODIUM CHLORIDE 0.9% 50 ML 140 MEQ IV (11:15)
[2022-10-08 11:17] LABS: NT-proBNP (BNP-Adult 18+) 240 pg/mL (<125); Troponin I < 0.012 ng/mL (0.01-0.034)
[2022-10-08] MEDS: SODIUM CHLORIDE 0.9% 1,000 ML 150 ML IV (11:24)
[2022-10-08] MEDS: POTASSIUM CHLORIDE IN WATER 10 MEQ/100 ML PIGGYBACK 100 MEQ IV ×8 (12:03→21:05)
--- NOTE | 2022-10-08 12:25 | DI.RAD.S_ITS ---
PROCEDURE: XR CHEST 1V INDICATIONS: Flu like symptoms TECHNIQUE: One view of the chest was acquired. COMPARISON: [facility], CR, XR CHEST 1V, 06/27/2022, 12:54. [facility], CR, XR CHEST 1V, 09/16/2022, 5:14. [facility], CR, XR CHEST 1V, 10/08/2022, 10:22. FINDINGS: Surgical changes and devices: A right-sided central line has been placed, with the tip overlying the right atrium, 3 4 cm below the cavoatrial junction. Lungs and pleura: Low lung volumes are noted. This causes a crowded appearance to the lung markings and limits evaluation. Mild scattered areas of interstitial prominence can be seen. Mediastinum: Mediastinal contours appear normal. Heart size is normal. Bones and chest wall: No suspicious bony lesions. Overlying soft tissues appear unremarkable. IMPRESSION: In this patient with low lung volumes, mild areas of interstitial prominence can be seen. This is felt most likely be artifactual, although differential diagnosis includes mild pulmonary edema and developing infiltrates. If clinically appropriate, a short-term followup chest series (with PA and lateral views) performed in deep inspiration is suggested for further evaluation. The tip of the right-sided central line overlies the right atrium. Dictated by: David Fiore M.D. on 10/08/2022 at 12:07 Approved by: David Fiore M.D. on 10/08/2022 at 12:09
--- NOTE | 2022-10-08 12:46 | P.PCN_ITS ---
Procedures Date/Time Date of procedure: 10/08/22 Time of procedure: 12:48 Central Line Placement Time out performed: Yes Patient placed on monitor/pulse ox: Yes MD prep: mask, gown, gloves and other (large body sized sterile drape) Central line prep: Chlorhexidine scrub and sterile drapes applied Local anesthesia used: lidocaine 1% Amount of anesthesia used (ml): 5 Ultrasound used for placement: Yes Central line lumen inserted: triple Post procedure: sutured in place, good blood return, all ports aspirated, flushed, capped and sterile dressing applied Post procedure x-ray: tip of catheter in good position (a little deep. Was pull ed back about 4 cm and resutured in place and redressed using sterile gloves and equipment. ) Patient tolerated procedure: well and no complications Complications: none
--- NOTE | 2022-10-08 12:49 | DI.CT.S_ITS ---
PROCEDURE: CT ABDOMEN PELVIS W CON INDICATIONS: abd pain, vfib arrest TECHNIQUE: After the administration of intravenous contrast, axial sections acquired from the lung bases to the pubic symphysis. Coronal and sagittal reformats were performed. For radiation dose reduction, the following was used: automated exposure control, adjustment of mA and/or kV according to patient size. COMPARISON: [facility], CT, CT ABDOMEN PELVIS W CON, 04/28/2020, 12:55. [facility], CT, CT ABDOMEN PELVIS W CON, 09/28/2018, 15:24. FINDINGS: Image quality: Excellent. Lung bases: Mild dependent atelectasis in the lung bases. Heart: No significant findings. ABDOMEN: Liver: Mild nonspecific periportal edema. Liver is mildly hypoattenuating, most commonly seen in setting of diffuse fatty infiltration. Gallbladder: Status post cholecystectomy. Biliary ducts: Unremarkable. Pancreas: Unremarkable. Spleen: Unremarkable. Adrenal Glands: Unremarkable. Kidneys and Ureters: Unremarkable. 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 Small bowel loops are unremarkable. Peritoneum: No abnormal intraperitoneal fluid. No free air. Ventral Wall: No hernias. Abdominal Nodes: No retroperitoneal or mesenteric adenopathy by size criteria. Vessels: Aorta and inferior vena cava are normal in size. PELVIS: Pelvic Organs: Unremarkable. Bladder: The bladder is decompressed by a Zaman catheter and contains air. Pelvic Nodes: No enlarged lymph nodes. Miscellaneous: No hernias are seen. Bones: Multiple bilateral minimally displaced anterior rib fractures are noted. IMPRESSION: No acute abnormality identified in the abdomen or pelvis. Approved by: Viet Burton M.D. on 10/08/2022 at 14:53
[2022-10-08 13:16] LABS: Ethanol (ETOH) < 10 mg/dL
[2022-10-08 13:17] LABS: Lactate (Lactic Acid) 1.4 mmol/L (0.7-2.1)
--- NOTE | 2022-10-08 13:19 | DI.ECHO.S_ITS ---
Interpretation Summary 1) Mildly enlarged left ventricle with moderately reduced systolic function (EF 35-40%). 2) The distal anteroseptum, the apical cap, the distal anterolateral wall, the distal inferolateral wall, and the distal anterior wall are akinetic. The basal to mid anterolateral wall and the basal to mid inferolateral wall are hypokinetic. 3) Normal right ventricular size with mildly reduced function. The apical right ventricular free wall appears dyskinetic (best seen subcostally). 4) There is moderate mitral regurgitation. 5) The right ventricular systolic pressure is estimated to be at least 50 mmHg based on an estimated right atrial pressure of 15 mm Hg. 6) Compared to the Echo done 07/14/2022, LVEF has decreased from normal to moderately reduced on this study. Procedure: A two-dimensional transthoracic echocardiogram with color flow and Doppler was performed. The study quality was technically difficult. Comparison is made with the echocardiogram of 07/14/22. The patient was fully supine during the exam. A contrast injection of Definity was performed to improve assessment of LV function. The patient was in normal sinus rhythm during the exam. Left Ventricle: There is normal left ventricular wall thickness. The left ventricle is mildly dilated. There is no thrombus. The ejection fraction is estimated to be 35-40%. The distal anteroseptum, the apical cap, the distal anterolateral wall, the distal inferolateral wall, and the distal anterior wall are akinetic. The basal to mid anterolateral wall and the basal to mid inferolateral wall are hypokinetic. Diastolic parameters suggest a pseudonormalization pattern, consistent with probable elevated filling pressures. Right Ventricle: The right ventricle is normal size. Right ventricular systolic function is mildly reduced. The apical right ventricular free wall appears dyskinetic (best seen subcostally). Atria: Both atria are normal in size. There is no Doppler evidence for an atrial septal defect. The interatrial septum bows toward right atrium consistent with elevated left atrial pressure. Mitral Valve: The mitral valve leaflets appear to open well. There is moderate mitral regurgitation. Aortic Valve: The aortic valve is not well visualized. There is no aortic valve stenosis. No aortic regurgitation is present. Tricuspid Valve: The tricuspid valve is normal in structure and function. There is mild tricuspid regurgitation. The right ventricular systolic pressure is estimated to be at least 50 mmHg based on an estimated right atrial pressure of 15 mm Hg. Pulmonic Valve: The pulmonic valve is not well visualized. There is trace pulmonic regurgitation. Great Vessels: The aortic root is normal size. The dimensions of the ascending aorta are normal. The pulmonary artery is normal size. The IVC is dilated (diameter is greater than 2.1 cm) and it collapses less than 50% with a sniff. This suggests a high right atrial pressure of 15 mm Hg. Pericardium/ Pleura There is no pericardial effusion. There is no pleural effusion. MMode/2D Measurements & Calculations LVIDd: 6.2 cm LVOT diam: 2.0 cm LVIDs: 5.0 cm Ao root diam: 3.3 cm FS: 19.7 % asc Aorta Diam: 3.0 cm EPSS: 0.97 cm Ao Arch Diam (Prox Trans): 2.3 cm IVSd: 0.87 cm LVPWd: 0.83 cm LV au. diameter/BSA (cm/m^2): 3.2 LV sys. diameter/BSA (cm/m^2): 2.5 LA A2 area: 17.8 cm2 RA long axis: 4.5 cm LA A4 area: 21.9 cm2 RA area: 11.7 cm2 LA length (vol): 5.9 cm RA vol: 26.0 ml LA vol: 56.2 ml RA : 13.2 ml/m2 LA vol index: 28.5 ml/m2 IVC diam: 2.5 cm RVD1 (basal): 3.6 cm RVD2 (mid): 3.6 cm TAPSE: 2.1 cm Doppler Measurements & Calculations Ao V2 max: 96.5 cm/sec LVOT Max Cesar: 84.8 cm/sec Ao V2 mean: 75.9 cm/sec LV V1 max P.9 mmHg Ao max P.7 mmHg LV V1 VTI: 19.7 cm Ao mean P.4 mmHg DEBORAH(I,D): 3.1 cm2 Ao V2 VTI: 20.8 cm DEBORAH(V,D): 2.8 cm2 sev ratio: 0.95 DEBORAH indexed to BSA (cm^2/m^2): 1.6 MV E max cesar: 95.5 cm/sec TR max cesar: 296.3 cm/sec MV A max cesar: 71.3 cm/sec TR max P.1 mmHg MV E/A: 1.3 PA V2 max: 61.1 cm/sec Med Peak E' Cesar: 4.9 cm/sec PA V2 mean: 49.0 cm/sec E/E' med: 19.7 PA mean P.00 mmHg Lat Peak E' Cesar: 4.1 cm/sec PA pr(Accel): 51.6 mmHg E/E' lat: 23.2 E/e' average: 21.4 MV dec time: 0.15 sec MR PISA: 1.3 cm2 SV(LVOT): 63.6 ml MR flow rate: 56.5 cm3/sec MR PISA radius: 0.46 cm Reading Physician:03:23 PM
[2022-10-08] MEDS: fentaNYL 100 MCG/2 ML INJ 50 MCG IV ×4 (13:25→22:10)
[2022-10-08] MEDS: PHENYLEPHRINE 20,000 MCG in DEXTROSE 5% IN WATER 250 ML 75 MCG IV ×3 (13:54→21:18)
[2022-10-08 14:05] LABS: Troponin I 0.552 ng/mL (0.01-0.034)
[2022-10-08 14:08] LABS: Appearance Urine UA SL CLOUDY; Bilirubin Urine UA NEGATIVE (NEGATIVE); Color Urine UA YELLOW; Glucose Urine UA 1+ g/dL (Negative); Ketones Urine UA NEGATIVE (NEGATIVE); Leukocyte Esterase Urine UA TRACE (NEGATIVE); Nitrite Urine UA NEGATIVE (Negative); Occult Blood Urine UA 3+ (Negative); Protein Urine UA 3+ (Negative); Specific Gravity Urine UA 1.015 (1.000-1.035); Urobilinogen Urine UA 0.2 E.U./dL (0.2)
[2022-10-08 14:17] LABS: Amorphous Sediment Urine 2+; RBC Urine >100/HPF (0-5/HPF); WBC Urine 5-10/HPF (0-5/HPF)
[2022-10-08 14:18] LABS: Bacteria Urine Occasional (0-1); Culture Indicated Urine Specimen Cultured; UR Morphine/Opiate cutoff 300 Negative (Negative); Ur Creatinine Normal (Normal); Ur Specific Gravity Normal (Normal); Urine Amphetamines Negative (Negative); Urine Barbiturates Negative (Negative); Urine Benzodiazepines Negative (Negative); Urine Cocaine Negative (Negative); Urine MDMA Negative (Negative); Urine Methadone Negative (Negative); Urine Methamphetamines Negative (Negative); Urine Oxycodone Negative (Negative); Urine Phencyclidine Negative (Negative); Urine Tetrahydrocannabinol Negative (Negative); Urine Tricyclic Antidepressant Negative (Negative); Urine pH Normal (Normal)
[2022-10-08] MEDS: PIPERACILLIN/TAZO 4.5 GM in SODIUM CHLORIDE 0.9% 100 ML IV (15:14)
[2022-10-08] MEDS: LACTATED RINGERS 1,000 ML 1000 ML IV (15:50)
[2022-10-08] MEDS: MAGNESIUM SULFATE 2 GM/50 ML PIGGYBACK IV (15:54)
[2022-10-08] MEDS: AMIODARONE 360 MG/200 ML PIGGYBACK 16.7 MG IV (16:18)
--- NOTE | 2022-10-08 17:59 | PC.NURSE ---
Summary Note: Pt triaged as documented and returned to waiting room. @ 1017 Per bystander was sitting interacting with her phone and suddenly fell forward. I was returning to waiting area to triage further and heard a call for help from a bystander. I found pt face down. I rolled her over maintaining cspine precautions and noted agonal resp, unresponsive, no pulse. I called a Code [facility] and started CPR. Code team arrived and we lifted pt to stretcher, continuous CPR, to room 2. Placed on defibrilator and found pt to be in vtack. immediately defibrilatted w/ 150j and cpr was resumed CPR. Pt given EPi 1 mg @1023 and Amiodarone 300mg @ 1025. Pt became responsive at 1026 and was noted to be in junctional escape rhythm that quickly changed to afib @ 110. + carotid pulse. BP 60s / palp by auscultation. 1028: EKG, Chest x ray @ 1030. See further documentation for continuation of care.
[2022-10-08] MEDS: ASPIRIN 81 MG CHEW TAB 324 MG PO (19:17)
[2022-10-08] MEDS: HEPARIN 5,000 UNIT/ML VIAL 5000 UNIT IV (19:18)
[2022-10-08] MEDS: FUROSEMIDE 40 MG/4 ML VIAL IV (19:18)
[2022-10-08] MEDS: HEPARIN DRIP 25,000 UNIT/500 ML IV.SOLN 20 UNIT IV (19:20)
[2022-10-08] MEDS: ATORVASTATIN 20 MG TABLET 80 MG PO (19:24)
[2022-10-08 20:00] LABS: PTT Partial Thromboplastin Tim 26 SECONDS (26-36)
[2022-10-08 20:04] LABS: Alanine Aminotransferase 80 IU/L (<35); Albumin Globulin Ratio 1.3 (1.0-2.8); Alkaline Phosphatase 124 U/L (38-126); Aspartate Aminotransferase 115 IU/L (14-36); BUN Creatinine Ratio 17.1 (6-22); Bilirubin Total 0.3 mg/dL (0.2-1.3); Blood Urea Nitrogen 12 mg/dL (7-17); Carbon Dioxide 26 mmol/L (22-32); Chloride 108 mmol/L (98-107); Estimated Glomerular Filt Rate > 60 mL/min (>60); Globulin 2.4 g/dL (1.7-4.1); Glucose 174 mg/dL (70-100); HEMOLYSIS < 15 (0-50); Magnesium 2.1 mg/dL (1.6-2.3); Potassium 4.7 mmol/L (3.4-5.1); Sodium 139 mmol/L (137-145); Total Protein 5.4 g/dL (6.3-8.2)
[2022-10-08] MEDS: cefTRIAXone 1,000 MG in SODIUM CHLORIDE 0.9% 100 ML 200 MG IV (22:09)
--- NOTE | 2022-10-08 22:44 | PC.NURSE ---
Patient with 12 beat run of V-tach. Provider immediately to bedside, patient denied any symptoms. Placed on 2L O2 by NC while asleep.
[2022-10-08] MEDS: PRAMIPEXOLE 0.25 MG TABLET 0.5 MG PO (22:59)
[2022-10-09] VITALS (70 sets, daily range): BP systolic 87–153; BP diastolic 54–88; PULSE 52–77; RESP 12–26; TEMP 37.1–37.7; O2SAT 92–100
[2022-10-09 00:54] LABS: PTT Partial Thromboplastin Tim 76 SECONDS (26-36)
[2022-10-09] MEDS: PHENYLEPHRINE 20,000 MCG in DEXTROSE 5% IN WATER 250 ML 37.5 MCG IV (01:32)
[2022-10-09] MEDS: fentaNYL 100 MCG/2 ML INJ 50 MCG IV ×3 (02:25→10:38)
--- NOTE | 2022-10-09 06:00 | DI.RAD.S_ITS ---
PROCEDURE: XR CHEST 1V INDICATIONS: post cardiac arrest TECHNIQUE: One view of the chest was acquired. COMPARISON: [facility], CT, CT ABDOMEN PELVIS W CON, 10/08/2022, 13:16. [facility], CR, XR CHEST 1V, 10/08/2022, 12:24. FINDINGS: Surgical changes and devices: There is a right side central line with the tip projecting to the area of atrial caval junction. Lungs and pleura: Chronic elevation of the right hemidiaphragm. No focal consolidation. No pleural effusions or pneumothorax. No significant change. Mediastinum: Mediastinal contours appear normal. Heart size is prominent. Bones and chest wall: No suspicious bony lesions. Overlying soft tissues appear unremarkable. IMPRESSION: Stable chest. No significant discrepancy with the shift production supervisor radiology preliminary report. Dictated by: Jessica Santiago M.D. on 10/09/2022 at 8:26 Approved by: Jessica Santiago M.D. on 10/09/2022 at 8:28
[2022-10-09] MEDS: AMIODARONE 180 MG/100 ML PIGGYBACK 16.7 MG IV (06:11)
[2022-10-09 07:45] LABS: Add Manual Diff / Slide Review NO; Basophils Absolute Auto 0 /uL (0-100); Basophils Percent Auto 0.5 % (0-2); Eosinophils Absolute Auto 0 /uL (0-450); Eosinophils Percent Auto 0.2 % (2-4); Hematocrit 32.2 % (36-46); Hemoglobin 10.5 g/dL (12.0-16.0); Lymphocytes Absolute Auto 1200 /uL (1100-4500); Mean Corpuscular HGB Conc 32.7 % (30-36); Mean Corpuscular Hemoglobin 27.9 PG (26-34); Mean Corpuscular Volume 85.5 fL (80-100); Monocytes Absolute Auto 400 /uL (0-900); Monocytes Percent Auto 6.1 % (3-14); Neutrophils Absolute Auto 4700 /uL (1500-7000); Neutrophils Percent Auto 74.2 % (50-75); Platelet Count 136 X10^3/uL (150-400); Red Blood Cell Count 3.76 X10^6/uL (4.0-5.2); Red Cell Distribution Width 19.2 % (11.6-14.8); White Blood Cell Count 6.3 X10^3/uL (4.5-11.0)
[2022-10-09 07:59] LABS: PTT Partial Thromboplastin Tim 56 SECONDS (26-36)
[2022-10-09 08:04] LABS: INR 1.2 (0.9-1.3); Prothrombin Time 14.3 SECONDS (10.1-12.7)
[2022-10-09 08:18] LABS: Alanine Aminotransferase 112 IU/L (<35); Albumin 2.8 g/dL (3.5-5.0); Albumin Globulin Ratio 1.2 (1.0-2.8); Alkaline Phosphatase 121 U/L (38-126); Aspartate Aminotransferase 136 IU/L (14-36); BUN Creatinine Ratio 18.5 (6-22); Bilirubin Total 0.3 mg/dL (0.2-1.3); Blood Urea Nitrogen 12 mg/dL (7-17); Carbon Dioxide 29 mmol/L (22-32); Chloride 106 mmol/L (98-107); Estimated Glomerular Filt Rate > 60 mL/min (>60); Globulin 2.3 g/dL (1.7-4.1); Glucose 117 mg/dL (70-100); HEMOLYSIS < 15 (0-50); Lipase 62 U/L (23-300); Potassium 3.7 mmol/L (3.4-5.1); Sodium 137 mmol/L (137-145); Total Protein 5.1 g/dL (6.3-8.2)
[2022-10-09 08:20] LABS: Lactate (Lactic Acid) 0.8 mmol/L (0.7-2.1)
[2022-10-09 08:34] LABS: Procalcitonin 0.12 ng/mL (<0.5)
[2022-10-09] MEDS: ACETAMINOPHEN 325 MG TABLET 650 MG PO ×2 (10:39→21:09)
[2022-10-09] MEDS: LIDOCAINE PATCH 1 EACH ADH..PATCH TOP (15:15)
[2022-10-09 15:27] LABS: PTT Partial Thromboplastin Tim 50 SECONDS (26-36)
[2022-10-09] MEDS: AMIODARONE 360 MG/200 ML PIGGYBACK 16.7 MG IV (15:42)
[2022-10-09] MEDS: ASPIRIN 81 MG CHEW TAB 324 MG PO (15:57)
[2022-10-09] MEDS: FLUTICASONE 120 SPRAY/16 GM SPRAY.SUSP NASAL (16:33)
[2022-10-09] MEDS: LORATADINE 10 MG TABLET PO (16:34)
[2022-10-09 19:52] LABS: PTT Partial Thromboplastin Tim 50 SECONDS (26-36)
--- NOTE | 2022-10-09 20:25 | PC.NURSE ---
Pt transfer Update [facility] - wait listed -updated on condition -spoke to Kimberlee [place]- wait listed- updated on condition -spoke to [facility]- wait listed- updated on condition - spoke to [facility] - looking for beds at other hospitals-updated on condition and vitals- spoke with Elen Face sheet and Covid results faxed previously
[2022-10-09] MEDS: PRAMIPEXOLE 0.25 MG TABLET 0.5 MG PO (21:09)
[2022-10-09] MEDS: cefTRIAXone 1,000 MG in SODIUM CHLORIDE 0.9% 100 ML 200 MG IV (21:09)
[2022-10-09] MEDS: ATORVASTATIN 20 MG TABLET 80 MG PO (21:10)
[2022-10-09] MEDS: HEPARIN DRIP 25,000 UNIT/500 ML IV.SOLN 19 UNIT IV (22:04)
[2022-10-10] VITALS (41 sets, daily range): BP systolic 106–166; BP diastolic 62–90; PULSE 53–87; RESP 11–31; TEMP 36.5–37.9; O2SAT 90–98
[2022-10-10] MEDS: HYDROCODONE/ACET 5/325 TABLET 1 TAB PO (00:16)
[2022-10-10 01:59] LABS: PTT Partial Thromboplastin Tim 43 SECONDS (26-36)
[2022-10-10] MEDS: LEVOTHYROXINE 125 MCG TABLET PO (06:39)
[2022-10-10 06:40] LABS: Add Manual Diff / Slide Review NO; Basophils Absolute Auto 0 /uL (0-100); Basophils Percent Auto 0.6 % (0-2); Eosinophils Absolute Auto 0 /uL (0-450); Eosinophils Percent Auto 0.2 % (2-4); Hematocrit 30.4 % (36-46); Hemoglobin 9.9 g/dL (12.0-16.0); Lymphocytes Absolute Auto 1300 /uL (1100-4500); Lymphocytes Percent Auto 32.2 % (25-40); Mean Corpuscular HGB Conc 32.5 % (30-36); Mean Corpuscular Hemoglobin 27.5 PG (26-34); Mean Corpuscular Volume 84.7 fL (80-100); Monocytes Absolute Auto 300 /uL (0-900); Monocytes Percent Auto 7.7 % (3-14); Neutrophils Absolute Auto 2400 /uL (1500-7000); Neutrophils Percent Auto 59.3 % (50-75); Platelet Count 114 X10^3/uL (150-400); Red Blood Cell Count 3.59 X10^6/uL (4.0-5.2); Red Cell Distribution Width 18.8 % (11.6-14.8); White Blood Cell Count 4.1 X10^3/uL (4.5-11.0)
[2022-10-10 06:49] LABS: Alanine Aminotransferase 260 IU/L (<35); Albumin 2.8 g/dL (3.5-5.0); Albumin Globulin Ratio 1.2 (1.0-2.8); Alkaline Phosphatase 114 U/L (38-126); Aspartate Aminotransferase 202 IU/L (14-36); BUN Creatinine Ratio 12.1 (6-22); Bilirubin Total 0.3 mg/dL (0.2-1.3); Blood Urea Nitrogen 7 mg/dL (7-17); Calcium 7.6 mg/dL (8.4-10.2); Carbon Dioxide 31 mmol/L (22-32); Chloride 105 mmol/L (98-107); Estimated Glomerular Filt Rate > 60 mL/min (>60); Globulin 2.3 g/dL (1.7-4.1); Glucose 97 mg/dL (70-100); HEMOLYSIS < 15 (0-50); Potassium 3.3 mmol/L (3.4-5.1); Sodium 138 mmol/L (137-145); Total Protein 5.1 g/dL (6.3-8.2)
[2022-10-10 07:01] LABS: NT-proBNP (BNP-Adult 18+) 1530 pg/mL (<125)
[2022-10-10 07:15] LABS: PTT Partial Thromboplastin Tim 44 SECONDS (26-36)
[2022-10-10] MEDS: AMIODARONE 360 MG/200 ML PIGGYBACK 16.7 MG IV ×2 (07:21→18:32)
[2022-10-10] MEDS: ONDANSETRON 4 MG/2 ML INJ IV (07:33)
[2022-10-10] MEDS: ASPIRIN 81 MG CHEW TAB 324 MG PO (10:01)
[2022-10-10] MEDS: LIDOCAINE PATCH 1 EACH ADH..PATCH TOP (10:02)
--- NOTE | 2022-10-10 10:05 | PC.NURSE ---
heparin gtt increased by machinist 2nd shift RN at 0545 to 20 mls. hr
--- NOTE | 2022-10-10 11:42 | PC.NURSE ---
We assisted the patient with a bedpan and then proceeded with a bed bath. We have the patient a shower cap and cleaned their entire body, including pericare. After she was cleaned up, we did a full bed sheet change, gave the patient a new gown and offered and assisted with oral care.
[2022-10-10] MEDS: POTASSIUM CHLORIDE IN WATER 10 MEQ/100 ML PIGGYBACK 100 MEQ IV ×2 (12:09→13:23)
[2022-10-10] MEDS: POTASSIUM CHLORIDE 20 MEQ TAB PO (12:09)
[2022-10-10 12:36] LABS: Magnesium 1.5 mg/dL (1.6-2.3); PTT Partial Thromboplastin Tim 46 SECONDS (26-36)
[2022-10-10] MEDS: LORATADINE 10 MG TABLET PO (13:49)
[2022-10-10] MEDS: FLUTICASONE 120 SPRAY/16 GM SPRAY.SUSP NASAL (13:50)
[2022-10-10] MEDS: MAGNESIUM SULFATE 2 GM/50 ML PIGGYBACK IV (13:52)
--- NOTE | 2022-10-10 17:45 | PC.NURSE ---
pt noticed that she was sitting there . describes her chest with butterfly and whooshy feeling. lightheaded. Hr 83 , b/p 122/74 rr 16, remains on Amiodarone gtt at 16.7 ml/hour and heparin gtt at 21 ml/hour. denies SOB, no chest pain. states its just thumping . ekg being done . Dr. Mercado aware .
[2022-10-10 18:45] LABS: PTT Partial Thromboplastin Tim 46 SECONDS (26-36)
[2022-10-10] MEDS: ATORVASTATIN 20 MG TABLET 80 MG PO (20:51)
[2022-10-10] MEDS: PRAMIPEXOLE 0.25 MG TABLET 0.5 MG PO (21:22)
--- NOTE | 2022-10-10 21:29 | PC.NURSE ---
Addendum entered by Kamala Lazo CNA 10/11/22 03:15: Called [facility], spoke to Elen. Patient still on their list. Gave update on vital signs. Original Note: BRIELLE note: Rechecking w/ hospitals to find placement for this patient: [facility]: spoke to [facility]. Still on waitlist. [facility]: Still on waitlist. May have space mid day tomorrow. Spoke to [facility]. [facility]: Spoke to [facility]. Still on waitlist. But they are super full. [facility]: Got a busy signal [facility]: Spoke to someone. Didn't catch her name. She said Minnie isn't on their waiting list. So I sent a face sheet over and will speak to them shortly.
[2022-10-10] MEDS: ACETAMINOPHEN 325 MG TABLET 650 MG PO (22:06)
[2022-10-10] MEDS: HEPARIN DRIP 25,000 UNIT/500 ML IV.SOLN 22 UNIT IV (22:34)
[2022-10-11] VITALS (53 sets, daily range): BP systolic 100–153; BP diastolic 50–90; PULSE 49–74; RESP 12–29; TEMP 36.5–37.4; O2SAT 86–99
[2022-10-11 01:22] LABS: PTT Partial Thromboplastin Tim 55 SECONDS (26-36)
[2022-10-11] MEDS: HYDROMORPHONE 0.5 MG INJ IV (01:41)
[2022-10-11] MEDS: ONDANSETRON 4 MG/2 ML INJ IV (01:46)
[2022-10-11] MEDS: AMIODARONE 360 MG/200 ML PIGGYBACK 16.7 MG IV ×2 (04:53→16:31)
[2022-10-11 06:31] LABS: Alanine Aminotransferase 210 IU/L (<35); Albumin 2.3 g/dL (3.5-5.0); Albumin Globulin Ratio 1.1 (1.0-2.8); Alkaline Phosphatase 93 U/L (38-126); Aspartate Aminotransferase 96 IU/L (14-36); BUN Creatinine Ratio 8.3 (6-22); Bilirubin Total 0.2 mg/dL (0.2-1.3); Blood Urea Nitrogen 4 mg/dL (7-17); Calcium 6.5 mg/dL (8.4-10.2); Carbon Dioxide 24 mmol/L (22-32); Chloride 112 mmol/L (98-107); Estimated Glomerular Filt Rate > 60 mL/min (>60); Globulin 2.1 g/dL (1.7-4.1); Glucose 84 mg/dL (70-100); HEMOLYSIS 21 (0-50); Potassium 3.3 mmol/L (3.4-5.1); Sodium 137 mmol/L (137-145); Total Protein 4.4 g/dL (6.3-8.2)
[2022-10-11 07:06] LABS: Troponin I 0.857 ng/mL (0.01-0.034)
[2022-10-11 07:14] LABS: Add Manual Diff / Slide Review NO; Basophils Absolute Auto 0 /uL (0-100); Basophils Percent Auto 0.2 % (0-2); Eosinophils Absolute Auto 0 /uL (0-450); Eosinophils Percent Auto 0.2 % (2-4); Hematocrit 25.8 % (36-46); Hemoglobin 8.6 g/dL (12.0-16.0); Lymphocytes Absolute Auto 1300 /uL (1100-4500); Lymphocytes Percent Auto 32.9 % (25-40); Mean Corpuscular HGB Conc 33.4 % (30-36); Mean Corpuscular Hemoglobin 28.2 PG (26-34); Mean Corpuscular Volume 84.3 fL (80-100); Monocytes Absolute Auto 400 /uL (0-900); Monocytes Percent Auto 9.2 % (3-14); Neutrophils Absolute Auto 2200 /uL (1500-7000); Neutrophils Percent Auto 57.5 % (50-75); Platelet Count 105 X10^3/uL (150-400); Red Blood Cell Count 3.07 X10^6/uL (4.0-5.2); Red Cell Distribution Width 18.2 % (11.6-14.8); White Blood Cell Count 3.9 X10^3/uL (4.5-11.0)
[2022-10-11] MEDS: LEVOTHYROXINE 125 MCG TABLET PO (08:00)
[2022-10-11] MEDS: MAGNESIUM SULFATE 2 GM/50 ML PIGGYBACK IV (08:43)
[2022-10-11] MEDS: PANTOPRAZOLE 40 MG VIAL IV (08:46)
[2022-10-11] MEDS: CALCIUM GLUCONATE 4.65 MEQ in SODIUM CHLORIDE 0.9% 50 ML 180 MEQ IV (09:08)
[2022-10-11] MEDS: POTASSIUM CHLORIDE IN WATER 10 MEQ/100 ML PIGGYBACK 100 MEQ IV ×4 (09:42→13:03)
--- NOTE | 2022-10-11 09:51 | PC.NURSE ---
hemocult negative. assisted dr. mendez in rectal exam
[2022-10-11] MEDS: LIDOCAINE PATCH 1 EACH ADH..PATCH TOP (10:58)
[2022-10-11] MEDS: ASPIRIN 81 MG CHEW TAB 324 MG PO (10:58)
[2022-10-11] MEDS: FLUTICASONE 120 SPRAY/16 GM SPRAY.SUSP NASAL (11:04)
[2022-10-11] MEDS: LORATADINE 10 MG TABLET PO (11:05)
[2022-10-11 17:59] LABS: Add Manual Diff / Slide Review NO; Basophils Absolute Auto 0 /uL (0-100); Basophils Percent Auto 0.6 % (0-2); Eosinophils Absolute Auto 0 /uL (0-450); Eosinophils Percent Auto 0.3 % (2-4); Hematocrit 30.8 % (36-46); Hemoglobin 10.1 g/dL (12.0-16.0); Lymphocytes Absolute Auto 1000 /uL (1100-4500); Lymphocytes Percent Auto 22.9 % (25-40); Mean Corpuscular HGB Conc 32.9 % (30-36); Mean Corpuscular Hemoglobin 27.7 PG (26-34); Mean Corpuscular Volume 84.4 fL (80-100); Monocytes Absolute Auto 400 /uL (0-900); Neutrophils Absolute Auto 3000 /uL (1500-7000); Neutrophils Percent Auto 67.2 % (50-75); Platelet Count 128 X10^3/uL (150-400); Red Blood Cell Count 3.65 X10^6/uL (4.0-5.2); Red Cell Distribution Width 18.4 % (11.6-14.8); White Blood Cell Count 4.5 X10^3/uL (4.5-11.0)
[2022-10-11 18:18] LABS: Alanine Aminotransferase 231 IU/L (<35); Albumin 3.1 g/dL (3.5-5.0); Albumin Globulin Ratio 1.3 (1.0-2.8); Alkaline Phosphatase 120 U/L (38-126); Aspartate Aminotransferase 76 IU/L (14-36); BUN Creatinine Ratio 8.3 (6-22); Bilirubin Total 0.3 mg/dL (0.2-1.3); Blood Urea Nitrogen 5 mg/dL (7-17); Carbon Dioxide 29 mmol/L (22-32); Chloride 106 mmol/L (98-107); Estimated Glomerular Filt Rate > 60 mL/min (>60); Globulin 2.4 g/dL (1.7-4.1); Glucose 90 mg/dL (70-100); HEMOLYSIS < 15 (0-50); Magnesium 1.9 mg/dL (1.6-2.3); Potassium 4.4 mmol/L (3.4-5.1); Sodium 138 mmol/L (137-145); Total Protein 5.5 g/dL (6.3-8.2)
[2022-10-11] MEDS: ATORVASTATIN 20 MG TABLET 80 MG PO (21:17)
[2022-10-11] MEDS: PRAMIPEXOLE 0.25 MG TABLET 0.5 MG PO (21:38)
[2022-10-11] MEDS: HEPARIN DRIP 25,000 UNIT/500 ML IV.SOLN 22 UNIT IV (21:41)
[2022-10-11] MEDS: fentaNYL 100 MCG/2 ML INJ 50 MCG IV (23:22)
[2022-10-11] MEDS: diphenhydrAMINE 50 MG/ML VIAL 25 MG IV (23:23)
[2022-10-12] VITALS (18 sets, daily range): BP systolic 96–146; BP diastolic 53–88; PULSE 55–78; RESP 13–35; TEMP 36.7–37.3; O2SAT 91–99
[2022-10-12] MEDS: AMIODARONE 360 MG/200 ML PIGGYBACK 16.7 MG IV (03:56)
[2022-10-12] MEDS: fentaNYL 100 MCG/2 ML INJ 50 MCG IV (04:00)
[2022-10-12] MEDS: LEVOTHYROXINE 125 MCG TABLET PO (07:00)
[2022-10-12] MEDS: LIDOCAINE PATCH 1 EACH ADH..PATCH TOP ×2 (07:09→09:25)
--- NOTE | 2022-10-12 08:09 | PC.NURSE ---
During report to [facility], I received phone call from charge nurse Gabriel who states that the CNO said they were no longer accepting patient but would accept for procedure only.
[2022-10-12] MEDS: ASPIRIN 81 MG CHEW TAB 324 MG PO (09:25)
[2022-10-12] MEDS: LORATADINE 10 MG TABLET PO (09:29)
[2022-10-12] MEDS: FLUTICASONE 120 SPRAY/16 GM SPRAY.SUSP NASAL (10:01)
[2022-10-12] MEDS: MORPHINE 4 MG/ML INJ IV (11:02)
== END 2022-10-12 11:30 | disposition short-term general hospital (02) ==
PROVIDERS: Emergency Medicine; Emergency Provider Emergency Medicine; PCP Internal Medicine
DX: I46.9 Cardiac arrest, cause unspecified (principal); I49.01 Ventricular fibrillation; E87.6 Hypokalemia; E83.51 Hypocalcemia; I77.89 Other specified disorders of arteries and arterioles; I28.9 Disease of pulmonary vessels, unspecified
CPT/HCPCS: 0241U; 36415; 36556; 36600; 36680; 70450; 71045; 71275; 74177; 80053; 80305; 80320; 81001; 82272; 82550; 82805; 83605; 83690; 83735; 83880; 84145; 84484; 85025; 85610; 85730; 87040; 87086; 92950; 93005; 93010; 93306; 96365; 96366; 96367; 96368; 96375; 96376; 99285; 99291; 99292; C9113; J0282; J0610; J0696; J1170; J1200; J1644; J1940; J2270; J2405; J2543; J3010; J3475; Q9957; Q9967

== ENCOUNTER → 2022-10-19 09:38 | Outpatient (CLI) | payer OTHER, MEDICAID, SELFPAY ==
[2021-04-28 02:35] VITALS: BMI 41.9
[2022-10-19 11:50] LABS: Blood Urea Nitrogen 14 mg/dL (7-17); Calcium 8.4 mg/dL (8.4-10.2); Carbon Dioxide 29 mmol/L (22-32); Chloride 103 mmol/L (98-107); Estimated Glomerular Filt Rate > 60 mL/min (>60); Glucose 86 mg/dL (70-100); HEMOLYSIS < 15 (0-50); Magnesium 1.6 mg/dL (1.6-2.3); Potassium 4.3 mmol/L (3.4-5.1); Sodium 141 mmol/L (137-145)
== END ==
PROVIDERS: PCP Internal Medicine; Referring Provider Internal Medicine; Visit Provider Internal Medicine
DX: E87.6 Hypokalemia (principal)
CPT/HCPCS: 36415; 80048; 83735

== ENCOUNTER 2022-12-10 11:07 | Emergency (ER) | payer OTHER, MEDICAID, SELFPAY ==
[2021-04-28 02:35] VITALS: BMI 41.9
[2022-12-10] VITALS (17 sets, daily range): BP systolic 112–145; BP diastolic 62–81; PULSE 65–84; RESP 14–54; TEMP 36.2; O2SAT 97–100
--- NOTE | 2022-12-10 11:22 | DI.RAD.S_ITS ---
PROCEDURE: XR CHEST 1V INDICATIONS: chest pain TECHNIQUE: One view of the chest was acquired. COMPARISON: [facility], CR, XR CHEST 1V, 10/09/2022, 6:03. FINDINGS: Surgical changes and devices: Dual-chamber left-sided pacemaker/defibrillator present. Lungs and pleura: Lungs are clear. No pleural effusions or pneumothorax. Mediastinum: Mediastinal contours appear normal. Heart size is normal. Bones and chest wall: No suspicious bony lesions. Overlying soft tissues appear unremarkable. IMPRESSION: No acute cardiopulmonary findings Approved by: Jayesh Houser M.D. on 12/10/2022 at 12:48
[2022-12-10 11:28] LABS: Add Manual Diff / Slide Review NO; Basophils Absolute Auto 0 /uL (0-100); Basophils Percent Auto 0.6 % (0-2); Eosinophils Absolute Auto 0 /uL (0-450); Eosinophils Percent Auto 0.5 % (2-4); Hematocrit 34.9 % (36-46); Hemoglobin 11.4 g/dL (12.0-16.0); Lymphocytes Absolute Auto 1300 /uL (1100-4500); Lymphocytes Percent Auto 19.2 % (25-40); Mean Corpuscular HGB Conc 32.6 % (30-36); Mean Corpuscular Hemoglobin 26.9 PG (26-34); Mean Corpuscular Volume 82.5 fL (80-100); Monocytes Absolute Auto 600 /uL (0-900); Monocytes Percent Auto 9.1 % (3-14); Neutrophils Absolute Auto 4800 /uL (1500-7000); Neutrophils Percent Auto 70.6 % (50-75); Platelet Count 178 X10^3/uL (150-400); Red Blood Cell Count 4.23 X10^6/uL (4.0-5.2); White Blood Cell Count 6.8 X10^3/uL (4.5-11.0)
[2022-12-10 11:33] LABS: Prothrombin Time 11.5 SECONDS (10.1-12.7)
[2022-12-10 11:36] LABS: PTT Partial Thromboplastin Tim 27 SECONDS (26-36)
[2022-12-10 11:39] LABS: Alanine Aminotransferase 28 IU/L (<35); Albumin 4.1 g/dL (3.5-5.0); Albumin Globulin Ratio 1.3 (1.0-2.8); Alkaline Phosphatase 96 U/L (38-126); Aspartate Aminotransferase 28 IU/L (14-36); BUN Creatinine Ratio 26.6 (6-22); Bilirubin Total 0.4 mg/dL (0.2-1.3); Blood Urea Nitrogen 17 mg/dL (7-17); Calcium 8.2 mg/dL (8.4-10.2); Carbon Dioxide 22 mmol/L (22-32); Chloride 104 mmol/L (98-107); Creatine Kinase 50 U/L (30-135); Estimated Glomerular Filt Rate > 60 mL/min (>60); Globulin 3.2 g/dL (1.7-4.1); Glucose 97 mg/dL (70-100); HEMOLYSIS 39 (0-50); Lipase 101 U/L (23-300); Magnesium 1.5 mg/dL (1.6-2.3); Potassium 3.9 mmol/L (3.4-5.1); Sodium 137 mmol/L (137-145); Total Protein 7.3 g/dL (6.3-8.2)
--- NOTE | 2022-12-10 11:46 | ED_ITS ---
HPI - Arrhythmia/Palpitations General Chief Complaint: Arrhythmia/Palpitations Stated Complaint: heart flutters, dizzy, weak Time Seen by Provider: 12/10/22 11:28 Source: patient Mode of arrival: Ambulatory Limitations: no limitations History of Present Illness HPI narrative: Patient is a 57-year-old female. Has a history of VFib arrest. Has an AICD in place. She is on anticoagulation. She is taking all of her medications as directed. Last evening she states she had an episode of lightheadedness. It was not a vertigo. Was not associated with palpitations nor chest pain. She did not pass out. It did resolve. This morning she woke up and had similar symptoms this morning. Currently she is still having some lightheadedness but she does report that it is improved. Continues to have no chest pain or palpitations. No nausea or vomiting. Related Data Home Medications Medication Instructions Recorded Confirmed methotrexate sodium 2.5 mg tablet 20 mg PO QWEEK 06/30/22 10/19/22 apixaban 5 mg tablet (Eliquis) 5 mg PO BID 10/19/22 10/19/22 aspirin 81 mg tablet,delayed 81 mg PO DAILY 10/19/22 10/19/22 release (Adult Low Dose Aspirin) bupropion HCl 75 mg tablet 75 mg PO BID 10/19/22 10/19/22 famotidine 20 mg tablet 20 mg PO BID 10/19/22 10/19/22 furosemide 20 mg tablet 20 mg PO DAILY 10/19/22 10/19/22 lisinopril 2.5 mg tablet 1.25 mg PO DAILY 10/19/22 10/19/22 rosuvastatin 20 mg tablet 20 mg PO DAILY 10/19/22 10/19/22 Previous Rx's Medication Instructions Recorded fluticasone propionate 50 2 spray intranasal DAILY PRN 04/10/22 mcg/actuation nasal allergy symptoms #16 grams spray,suspension (Allergy Relief (fluticasone)) albuterol sulfate 90 mcg/actuation 2 puff inhalation Q6H PRN 08/07/22 aerosol inhaler shortness of breath or wheezing #6.7 grams metoprolol succinate 25 mg 12.5 mg PO DAILY #90 tabs 08/07/22 tablet,extended release 24 hr fluticasone propionate 220 2 puff inhalation BID #12 grams 09/25/22 mcg/actuation HFA aerosol inhaler potassium chloride 8 mEq 8 meq PO DAILY #90 caps 09/25/22 capsule,extended release pramipexole 0.5 mg tablet 0.5 mg PO BEDTIME restless leg #90 10/09/22 tabs ondansetron 4 mg disintegrating 4 mg PO Q6H PRN nausea and 10/16/22 tablet vomiting #7 tabs levothyroxine 125 mcg tablet 125 mcg PO DAILY #90 tabs 11/22/22 Allergies Allergy/AdvReac Type Severity Reaction Status Date / Time animal dander [ANIMAL DANDER] Allergy Intermediate ITCHY Verified 12/10/22 11:31 WATERY EYES AND SNEEZING grass pollen AdvReac Intermediate itching Verified 12/10/22 11:31 house dust AdvReac Intermediate itching Verified 12/10/22 11:31 Review of Systems Constitutional Constitutional: Reports system reviewed and no additional complaints, except as documented Cardiovascular Cardiovascular: Reports system reviewed and no additional complaints, except as documented Respiratory Respiratory: Reports system reviewed and no additional complaints, except as documented Gastrointestinal Gastrointestinal: Reports system reviewed and no additional complaints, except as documented Musculoskeletal Musculoskeletal: Reports system reviewed and no additional complaints, except as documented Integumentary/Breasts Skin/Breast: Reports system reviewed and no additional complaints, except as documented Neurologic Neurologic: Reports system reviewed and no additional complaints, except as documented Hematologic/Lymphatic On Anticoagulants: Yes Patient History Medical History Acquired hypothyroidism (~2016) Alcohol abuse Allergic rhinitis Cardiac arrest with ventricular fibrillation Cervical high risk HPV (human papillomavirus) test positive Depression (Unknown) Hypokalemia Morbid obesity Non-ischemic cardiomyopathy (~10/2022) Obstructive sleep apnea Peripheral edema (~2010) Restless leg Varicose veins of both lower extremities with complications (~2010) Surgical History (Updated 10/19/22 @ 08:55 by Jesse Jain MD) History of Vasu-en-Y gastric bypass History of thyroidectomy S/P implantation of automatic cardioverter/defibrillator (AICD) (~10/2022) Status post breast lumpectomy Status post laparoscopic cholecystectomy Family History Sister Age: 59 History of breast cancer Son Drug overdose Social History marital status: household members: family occupational status: employed Smoking Status: Current every day smoker Tobacco: How many years used: 3 second hand exposure: No alcohol intake: current substance use type: does not use Type(s) of exercise: none Smoking Status: Current every day smoker tobacco type: cigarettes alcohol intake frequency: other Alcohol type: beer, wine and hard liquor Substance Use Type: does not use Exam Initial Vital Signs Initial Vital Signs: Vital Signs Temperature 97.1 F L 12/10/22 11:11 Pulse Rate 77 12/10/22 11:11 Respiratory Rate 14 12/10/22 11:11 Blood Pressure 135/74 12/10/22 11:11 Pulse Oximetry 99 12/10/22 11:11 Oxygen Delivery Method 12/10/22 11:11 HENMT Head: normal to inspection and normocephalic Resp Effort & Inspection: normal respiratory effort Auscultation: clear to auscultation bilaterally Cardio Rate: regular rate Rhythm: regular rhythm GI Inspection: normal to inspection Skin General: no rashes or lesions noted Neuro General: patient alert, patient awake and moves all extremities Extrem General: normal to inspection and capillary refill normal Course Orders Ordered: ED Orders 12/10/22 11:12 BNP [NT-proBNP (BNP-Adult 18+)] Stat Complete Blood Count AUTO DIFF Stat Comprehensive Metabolic Panel Stat Lipase Stat Magnesium Stat Partial Thromboplastin Time Stat Prothrombin Time INR Stat Troponin & CK Cardiac Panel Stat 12/10/22 11:22 XR chest 1V Stat EKG-12 Lead Stat 12/10/22 13:26 Covid-19 + FLU A/B + RSV - PCR Stat Discontinued Medications Magnesium Chloride (Magnesium Chloride 64 Mg Tablet) 128 mg PO NOW ONE Stop: 12/10/22 13:03 Last Admin: 12/10/22 13:25 Dose: 128 mg Documented By: SERGIO Vital Signs Vital signs: Vital Signs - 8 hr 12/10/22 11:11 12/10/22 11:15 12/10/22 11:15 Temperature 97.1 F L Pulse Rate 77 84 Respiratory Rate 14 23 Blood Pressure 135/74 145/81 H Pulse Oximetry 99 97 Oxygen Delivery Method Room Air 12/10/22 11:30 12/10/22 11:31 12/10/22 11:31 Temperature Pulse Rate 77 75 Respiratory Rate 21 20 Blood Pressure 112/62 Pulse Oximetry 99 100 Oxygen Delivery Method 12/10/22 11:45 12/10/22 11:45 12/10/22 12:00 Temperature Pulse Rate 72 Respiratory Rate 17 Blood Pressure 113/65 117/67 Pulse Oximetry 97 Oxygen Delivery Method 12/10/22 12:00 12/10/22 12:15 12/10/22 12:15 Temperature Pulse Rate 72 72 Respiratory Rate 17 18 Blood Pressure 120/71 Pulse Oximetry 98 97 Oxygen Delivery Method 12/10/22 12:30 12/10/22 12:30 12/10/22 12:45 Temperature Pulse Rate 69 Respiratory Rate 16 Blood Pressure 129/70 115/66 Pulse Oximetry 97 Oxygen Delivery Method Room Air 12/10/22 12:45 12/10/22 13:00 12/10/22 13:00 Temperature Pulse Rate 68 69 Respiratory Rate 14 32 H Blood Pressure 128/71 Pulse Oximetry 97 97 Oxygen Delivery Method 12/10/22 13:15 12/10/22 13:15 12/10/22 13:30 Temperature Pulse Rate 67 Respiratory Rate 31 H Blood Pressure 115/65 122/67 Pulse Oximetry 97 Oxygen Delivery Method 12/10/22 13:30 12/10/22 13:45 12/10/22 13:45 Temperature Pulse Rate 70 67 Respiratory Rate 45 H 44 H Blood Pressure 115/69 Pulse Oximetry 99 100 Oxygen Delivery Method 12/10/22 14:00 12/10/22 14:00 12/10/22 14:15 Temperature Pulse Rate 67 Respiratory Rate 54 H Blood Pressure 117/71 119/76 Pulse Oximetry 100 Oxygen Delivery Method 12/10/22 14:15 12/10/22 14:30 12/10/22 14:30 Temperature Pulse Rate 67 65 Respiratory Rate 15 22 Blood Pressure 124/77 Pulse Oximetry 99 100 Oxygen Delivery Method 12/10/22 14:45 12/10/22 14:45 Temperature Pulse Rate 66 Respiratory Rate 16 Blood Pressure 132/79 Pulse Oximetry 100 Oxygen Delivery Method MDM - Arrhythmia/Palpitations Medical Records Attestation: I reviewed the patient's medical records. Lab Data Attestation: I reviewed the patient's lab results. 12/10/22 11:12 12/10/22 11:12 Labs: Lab Results 02/05/23 02/05/23 02/05/23 Range/Units 11:12 11:12 11:12 WBC 6.8 (4.5-11.0) X10^3/uL RBC 4.23 (4.0-5.2) X10^6/uL Hgb 11.4 L (12.0-16.0) g/dL Hct 34.9 L (36-46) % MCV 82.5 (80-100) fL MCH 26.9 (26-34) PG MCHC 32.6 (30-36) % RDW 19.0 H (11.6-14.8) % Plt Count 178 (150-400) X10^3/uL Neut % (Auto) 70.6 (50-75) % Lymph % (Auto) 19.2 L (25-40) % [place] % (Auto) 9.1 (3-14) % Eos % (Auto) 0.5 L (2-4) % Baso % (Auto) 0.6 (0-2) % Neut # (Auto) 4800 (1617-9950) /uL Lymph # (Auto) 1300 (4655-6522) /uL [place] # (Auto) 600 (0-900) /uL Eos # (Auto) 0 (0-450) /uL Baso # (Auto) 0 (0-100) /uL PT 11.5 (10.1-12.7) SECONDS INR 1.0 (0.9-1.3) APTT 27 (26-36) SECONDS Sodium 137 (137-145) mmol/L Potassium 3.9 (3.4-5.1) mmol/L Chloride 104 (98-107) mmol/L Carbon Dioxide 22 (22-32) mmol/L BUN 17 (7-17) mg/dL Creatinine 0.64 (0.52-1.04) mg/dL Estimated GFR > 60 (>60) mL/min BUN/Creatinine Ratio 26.6 H (6-22) Glucose 97 (70-100) mg/dL Calcium 8.2 L (8.4-10.2) mg/dL Magnesium 1.5 L (1.6-2.3) mg/dL Total Bilirubin 0.4 (0.2-1.3) mg/dL AST 28 (14-36) IU/L ALT 28 (<35) IU/L Alkaline Phosphatase 96 (38-126) U/L Total Creatine Kinase 50 (30-135) U/L CK-MB (CK-2) TNP CK-MB (CK-2) Rel Index TNP Troponin I < 0.012 (0.01-0.034) ng/mL NT-Pro-B Natriuret Pep 117 (<125) pg/mL Total Protein 7.3 (6.3-8.2) g/dL Albumin 4.1 (3.5-5.0) g/dL Globulin 3.2 (1.7-4.1) g/dL Albumin/Globulin Ratio 1.3 (1.0-2.8) Lipase 101 (23-300) U/L SARS-CoV-2 (PCR) (Negative) Influenza A (RT-PCR) (NEGATIVE) Influenza B (RT-PCR) (NEGATIVE) RSV (PCR) (Negative) 12/10/22 Range/Units 13:26 WBC (4.5-11.0) X10^3/uL RBC (4.0-5.2) X10^6/uL Hgb (12.0-16.0) g/dL Hct (36-46) % MCV (80-100) fL MCH (26-34) PG MCHC (30-36) % RDW (11.6-14.8) % Plt Count (150-400) X10^3/uL Neut % (Auto) (50-75) % Lymph % (Auto) (25-40) % [place] % (Auto) (3-14) % Eos % (Auto) (2-4) % Baso % (Auto) (0-2) % Neut # (Auto) (7946-2033) /uL Lymph # (Auto) (7383-8378) /uL [place] # (Auto) (0-900) /uL Eos # (Auto) (0-450) /uL Baso # (Auto) (0-100) /uL PT (10.1-12.7) SECONDS INR (0.9-1.3) APTT (26-36) SECONDS Sodium (137-145) mmol/L Potassium (3.4-5.1) mmol/L Chloride (98-107) mmol/L Carbon Dioxide (22-32) mmol/L BUN (7-17) mg/dL Creatinine (0.52-1.04) mg/dL Estimated GFR (>60) mL/min BUN/Creatinine Ratio (6-22) Glucose (70-100) mg/dL Calcium (8.4-10.2) mg/dL Magnesium (1.6-2.3) mg/dL Total Bilirubin (0.2-1.3) mg/dL AST (14-36) IU/L ALT (<35) IU/L Alkaline Phosphatase (38-126) U/L Total Creatine Kinase (30-135) U/L CK-MB (CK-2) CK-MB (CK-2) Rel Index Troponin I (0.01-0.034) ng/mL NT-Pro-B Natriuret Pep (<125) pg/mL Total Protein (6.3-8.2) g/dL Albumin (3.5-5.0) g/dL Globulin (1.7-4.1) g/dL Albumin/Globulin Ratio (1.0-2.8) Lipase (23-300) U/L SARS-CoV-2 (PCR) Negative (Negative) Influenza A (RT-PCR) Flu a negative (NEGATIVE) Influenza B (RT-PCR) Flu b negative (NEGATIVE) RSV (PCR) Negative (Negative) Imaging Data Chest x-ray: Radiologist's Impresson: [address] [address] XRay Report Signed Patient: Minnie Price MR#: [id number] : 1965 Acct:[id number] Age/Sex: 57 / F Date of Service: 12/10/22 Loc: ED Accession Number: [id number] ?? Procedure: XR chest 1V Ordering Provider: Akshat Mercado D.O. PROCEDURE:? XR CHEST 1V ? INDICATIONS:? chest pain ? TECHNIQUE:? One view of the chest was acquired.? ? COMPARISON:? [facility], [place], XR CHEST 1V, 10/09/2022, 6:03. ? FINDINGS:? ? Surgical changes and devices:? Dual-chamber left-sided pacemaker/defibrillator present. ? Lungs and pleura:? Lungs are clear.? No pleural effusions or pneumothorax.? ? Mediastinum:? Mediastinal contours appear normal.? Heart size is normal.? ? Bones and chest wall:? No suspicious bony lesions.? Overlying soft tissues appear unremarkable.? ? IMPRESSION:? No acute cardiopulmonary findings ? ? ? Approved by: Jayesh Houser M.D. on 12/10/2022 at 12:48? ECG Data Attestation: I personally reviewed and interpreted this ECG as follows: Interpretation: Sinus rhythm Ventricular rate 80 Left axis deviation Normal QRS No ST T wave changes MDM Narrative Medical decision making narrative: Patient does have a significant cardiac history she does have a defibrillator in place. We were able to interrogate the defibrillator and she has had no abnormal events listed. The defibrillator has not fired. She is had no AFib/VFib. Her workup here in the emergency department is relatively unremarkable. Her COVID is negative. She is not having chest pain. Low suspicion for CVA/TIA. She is no focal neurologic symptoms. She is taking all of her medications as directed. Her electrolytes are unremarkable except for slightly low magnesium which was replaced here in the ER. I have a low suspicion that this was the cause of her symptoms. No indication for antibiotics. No indication that this is pneumonia. Had a discussion with her regarding her symptoms. She does understand of a lack of a definitive diagnosis. Will discharge patient home to continue all of her medications and she will contact her primary doctor for follow-up. She was given return precautions. She expressed understanding and agreement. Discharge Plan Departure Patient Disposition: Home Clinical Impression: Lightheadedness Instructions: DI for Dizziness-Nonvertigo Activity Restrictions/Additional Instructions: I recommend that you continue to take all of your medications as directed. Contact your primary provider for a follow-up. Return to the emergency department for any new or worsening symptoms. Prescriptions: No Action fluticasone propionate [Allergy Relief (fluticasone)] 50 mcg/actuation spray,suspension 2 spray intranasal DAILY PRN (Reason: allergy symptoms) Qty: 16 6RF Rx Instructions: administer into each nostril albuterol sulfate 90 mcg/actuation HFA aerosol inhaler 2 puff inhalation Q6H PRN (Reason: shortness of breath or wheezing) Qty: 6.7 5RF metoprolol succinate 25 mg tablet extended release 24 hr 12.5 mg PO DAILY Qty: 90 3RF pramipexole 0.5 mg tablet 0.5 mg PO BEDTIME Qty: 90 1RF ondansetron 4 mg tablet,disintegrating 4 mg PO Q6H PRN (Reason: nausea and vomiting) Qty: 7 0RF levothyroxine 125 mcg tablet 125 mcg PO DAILY Qty: 90 3RF Label Comments: states has not taken for a long time aspirin [Adult Low Dose Aspirin] 81 mg tablet,delayed release (DR/EC) 81 mg PO DAILY famotidine 20 mg tablet 20 mg PO BID lisinopril 2.5 mg tablet 1.25 mg PO DAILY rosuvastatin 20 mg tablet 20 mg PO DAILY bupropion HCl 75 mg tablet 75 mg PO BID Eliquis 5 mg tablet 5 mg PO BID furosemide 20 mg tablet 20 mg PO DAILY methotrexate sodium 2.5 mg tablet 20 mg PO QWEEK Rx Instructions: 4 tabs in AM, 4 tabs in PM QWEEK fluticasone propionate 220 mcg/actuation HFA aerosol inhaler 2 puff inhalation BID Qty: 12 3RF potassium chloride 8 mEq capsule, extended release 8 meq PO DAILY Qty: 90 3RF Referrals: Jesse Jain MD [Primary Care Provider] - Stand Alone Forms: Patient Portal/API
[2022-12-10 11:50] LABS: NT-proBNP (BNP-Adult 18+) 117 pg/mL (<125); Troponin I < 0.012 ng/mL (0.01-0.034)
[2022-12-10] MEDS: MAGNESIUM CHLORIDE 64 MG TABLET 128 MG PO (13:25)
[2022-12-10 14:17] LABS: Influenza A - CEPHEID Flu A NEGATIVE (NEGATIVE); Influenza B - CEPHEID Flu B NEGATIVE (NEGATIVE); Respiratory Syncytial Virus Negative (Negative)
[2022-12-10 14:18] LABS: COVID-19 CEPHEID 4-PLEX PCR Negative (Negative)
== END 2022-12-10 15:06 | disposition home or self-care (01) ==
PROVIDERS: Emergency Provider Emergency Medicine; PCP Internal Medicine
DX: R42 Dizziness and giddiness (principal); R07.9 Chest pain, unspecified; Z79.01 Long term (current) use of anticoagulants; Z20.822 Contact with and (suspected) exposure to COVID-19
CPT/HCPCS: 0241U; 36415; 71045; 80053; 82550; 83690; 83735; 83880; 84484; 85025; 85610; 85730; 93005; 93010; 99284

== ENCOUNTER 2023-01-29 07:17 | Emergency (ER) | payer OTHER, MEDICAID, SELFPAY ==
[2021-04-28 02:35] VITALS: BMI 41.9
[2023-01-29] VITALS (22 sets, daily range): BP systolic 97–131; BP diastolic 53–75; PULSE 59–71; RESP 11–30; TEMP 36.6; O2SAT 94–100; BMI 38.4
--- NOTE | 2023-01-29 07:33 | DI.RAD.S_ITS ---
PROCEDURE: XR CHEST 1V INDICATIONS: Shortness of breath TECHNIQUE: One view of the chest was acquired. COMPARISON: [facility], [place], XR CHEST 1V, 12/10/2022, 11:34. FINDINGS: Surgical changes and devices: Left chest wall pacemaker leads are in the region of right atrium and right ventricle. Lungs and pleura: Lungs are clear. No pleural effusions or pneumothorax. Mediastinum: Mediastinal contours appear normal. Heart size is normal. Bones and chest wall: No suspicious bony lesions. Overlying soft tissues appear unremarkable. IMPRESSION: No acute cardiopulmonary pathology. Dictated by: Moisés Jimenez M.D. on 01/29/2023 at 8:07 Approved by: Moisés Jimenez M.D. on 01/29/2023 at 8:07
--- NOTE | 2023-01-29 07:34 | ED.SOB ---
HPI - SOB/Dyspnea General Chief Complaint: Shortness of Breath/Dyspnea Stated Complaint: SOB Time Seen by Provider: 01/29/23 07:34 Source: patient Mode of arrival: Ambulatory Limitations: no limitations History of Present Illness HPI Narrative: This is a 57-year-old history of prior [id number] VFib arrest, ICD placement, morbid obesity status post gastric bypass, RA, tobacco use, hypothyroidism, BRADY, paroxysmal atrial fibrillation on apixaban and metoprolol. Patient presents today with complaint of left neck arm and chest since which she states has been sort of a dull achy feeling she does notice that movement sometimes seems to make it better or worse. She states that starting yesterday she started feeling short of breath early in the afternoon. She states that felt like her breathing was a little bit harder as well. She describes as little bit pleuritic particularly with deep inspiration. She states it feels different than asthma flare. She states getting up and moving helped it. She tried Tylenol home with no relief. She states she is not supposed to take ibuprofen. She denies fevers or chills, no cold cough or congestion. No nausea or vomiting. No diaphoresis. No abdominal back or flank pain. She noted that she has chronic swelling in her left lower extremity but a little bit worse the last couple days, no dysuria urgency or frequency. No syncope. Patient states that the chest discomfort started after the neck shoulder and arm discomfort. Patient has a history significant for [id number] VFib arrest at our facility in the waiting room, had ICD placed and had an echo several weeks ago she states that was ?looked good? according to the atm technician and that her catheterization after VFib arrest was negative. She is on Eliquis daily, she states she is taking it regularly. She occasionally uses tobacco, denies alcohol, occasional THC but no illicit. She states prior surgeries include AICD, cholecystectomy, gastric bypass, right thyroidectomy, benign tumor from the right breast. PCP is Dr. Jain. Dr. Dejesus is her pharmacy customer care specialist at [facility]. Related Data Home Medications Medication Instructions Recorded Confirmed methotrexate sodium 2.5 mg tablet 20 mg PO QWEEK 06/30/22 10/19/22 apixaban 5 mg tablet (Eliquis) 5 mg PO BID 10/19/22 10/19/22 aspirin 81 mg tablet,delayed 81 mg PO DAILY 10/19/22 10/19/22 release (Adult Low Dose Aspirin) bupropion HCl 75 mg tablet 75 mg PO BID 10/19/22 10/19/22 famotidine 20 mg tablet 20 mg PO BID 10/19/22 10/19/22 furosemide 20 mg tablet 20 mg PO DAILY 10/19/22 10/19/22 lisinopril 2.5 mg tablet 1.25 mg PO DAILY 10/19/22 10/19/22 rosuvastatin 20 mg tablet 20 mg PO DAILY 10/19/22 10/19/22 Previous Rx's Medication Instructions Recorded fluticasone propionate 50 2 spray intranasal DAILY PRN 04/10/22 mcg/actuation nasal allergy symptoms #16 grams spray,suspension (Allergy Relief (fluticasone)) albuterol sulfate 90 mcg/actuation 2 puff inhalation Q6H PRN 08/07/22 aerosol inhaler shortness of breath or wheezing #6.7 grams metoprolol succinate 25 mg 12.5 mg PO DAILY #90 tabs 08/07/22 tablet,extended release 24 hr fluticasone propionate 220 2 puff inhalation BID #12 grams 09/25/22 mcg/actuation HFA aerosol inhaler potassium chloride 8 mEq 8 meq PO DAILY #90 caps 09/25/22 capsule,extended release pramipexole 0.5 mg tablet 0.5 mg PO BEDTIME restless leg #90 10/09/22 tabs ondansetron 4 mg disintegrating 4 mg PO Q6H PRN nausea and 10/16/22 tablet vomiting #7 tabs levothyroxine 125 mcg tablet 125 mcg PO DAILY #90 tabs 11/22/22 cyclobenzaprine 10 mg tablet 10 mg PO Q8H #10 tabs 01/29/23 hydrocodone 5 mg-acetaminophen 325 1 tab PO Q6H PRN pain #10 tabs 01/29/23 mg tablet Allergies Allergy/AdvReac Type Severity Reaction Status Date / Time animal dander [ANIMAL DANDER] Allergy Intermediate ITCHY Verified 12/10/22 11:31 WATERY EYES AND SNEEZING grass pollen AdvReac Intermediate itching Verified 12/10/22 11:31 house dust AdvReac Intermediate itching Verified 12/10/22 11:31 Review of Systems Review of Systems ROS Unobtainable: All systems reviewed & are unremarkable except as noted in HPI and below Patient History Medical History Acquired hypothyroidism (~2016) Alcohol abuse Allergic rhinitis Cardiac arrest with ventricular fibrillation Cervical high risk HPV (human papillomavirus) test positive Depression (Unknown) Hypokalemia Morbid obesity Non-ischemic cardiomyopathy (~10/2022) Obstructive sleep apnea Peripheral edema (~2010) Restless leg Varicose veins of both lower extremities with complications (~2010) Surgical History History of Vasu-en-Y gastric bypass History of thyroidectomy S/P implantation of automatic cardioverter/defibrillator (AICD) (~10/2022) Status post breast lumpectomy Status post laparoscopic cholecystectomy Family History Sister Age: 59 History of breast cancer Son Drug overdose Social History marital status: household members: family occupational status: employed Smoking Status: Current some day smoker Tobacco: How many years used: 3 second hand exposure: No alcohol intake: current substance use type: does not use Type(s) of exercise: none Smoking Status: Current some day smoker tobacco type: cigarettes alcohol intake frequency: other Alcohol type: beer, wine and hard liquor Substance Use Type: marijuana Exam Narrative Exam Narrative: GENERAL: Alert and oriented x three, female in mild distress. HEENT: Head normocephalic, atraumatic, EOMI, pupils reactive, face symmetric, moist mucous membranes NECK: Supple, full range of motion CARDIOVASCULAR: Regular rate and rhythm without murmurs, rubs or gallops. 2+ pulses bilateral upper extremities. RESPIRATORY: Breath sounds equal bilaterally, no wheezes rales or rhonchi. No tachypnea. No accessory muscle use. ABDOMEN: Soft, nontender. Normoactive bowel sounds all 4 quadrants. No guarding or rebound, rigidity, no mass : No CVA tenderness EXTREMITIES: Normal range of motion, no clubbing. Patient has trace edema bilaterally unable to appreciate left versus right circumference difference on exam. Neurovascularly intact. Cap refill less than 2 seconds bilateral lower extremities. NEUROLOGICAL: Cranial nerves II through XII grossly intact. Moving all extremities SKIN: Warm, dry, no petechiae, no rashes or lesions. Initial Vital Signs Initial Vital Signs: Vital Signs Temperature 97.9 F 01/29/23 07:29 Pulse Rate 71 01/29/23 07:29 Respiratory Rate 18 01/29/23 07:29 Blood Pressure 121/75 01/29/23 07:29 Pulse Oximetry 99 01/29/23 07:29 Oxygen Delivery Method Room Air 01/29/23 07:29 Course Orders Ordered: ED Orders 01/29/23 10:00 Trop I [Troponin I] Stat Discontinued Medications Hydrocodone Bitart/Acetaminophen (Hydrocodone/Acet 5/325 Tablet) 1 tab PO NOW ONE Stop: 01/29/23 08:52 Last Admin: 01/29/23 08:57 Dose: 1 tab Documented By: AT Nitroglycerin (Nitroglycerin 0.4 Mg Sl Tab) 0.4 mg SL NOW ONE Stop: 01/29/23 07:50 Last Admin: 01/29/23 07:56 Dose: 0.4 mg Documented By: AT Vital Signs Vital signs: Vital Signs - 8 hr 01/29/23 11:00 01/29/23 11:30 01/29/23 11:35 Pulse Rate 60 62 60 Respiratory Rate 23 23 22 Blood Pressure Pulse Oximetry 100 94 100 Oxygen Delivery Method Room Air 01/29/23 11:35 Pulse Rate Respiratory Rate Blood Pressure 131/62 Pulse Oximetry Oxygen Delivery Method MDM - SOB/Dyspnea Lab Data 01/29/23 07:40 01/29/23 07:40 Labs: Lab Results 01/29/23 01/29/23 01/29/23 Range/Units 07:40 07:40 07:40 WBC 7.4 (4.5-11.0) X10^3/uL RBC 4.44 (4.0-5.2) X10^6/uL Hgb 11.5 L (12.0-16.0) g/dL Hct 35.5 L (36-46) % MCV 80.1 (80-100) fL MCH 25.9 L (26-34) PG MCHC 32.4 (30-36) % RDW 18.9 H (11.6-14.8) % Plt Count 167 (150-400) X10^3/uL Neut % (Auto) 72.2 (50-75) % Lymph % (Auto) 18.4 L (25-40) % Morehouse % (Auto) 8.1 (3-14) % Eos % (Auto) 0.8 L (2-4) % Baso % (Auto) 0.5 (0-2) % Neut # (Auto) 5300 (4161-3974) /uL Lymph # (Auto) 1400 (9032-8037) /uL Morehouse # (Auto) 600 (0-900) /uL Eos # (Auto) 100 (0-450) /uL Baso # (Auto) 0 (0-100) /uL PT 13.5 H (10.1-12.7) SECONDS INR 1.2 (0.9-1.3) Sodium 138 (137-145) mmol/L Potassium 4.1 (3.4-5.1) mmol/L Chloride 105 (98-107) mmol/L Carbon Dioxide 27 (22-32) mmol/L BUN 13 (7-17) mg/dL Creatinine 0.58 (0.52-1.04) mg/dL Estimated GFR > 60 (>60) mL/min BUN/Creatinine Ratio 22.4 H (6-22) Glucose 105 H (70-100) mg/dL Lactate (0.7-2.1) mmol/L Calcium 8.6 (8.4-10.2) mg/dL Magnesium (1.6-2.3) mg/dL Total Bilirubin 0.5 (0.2-1.3) mg/dL AST 24 (14-36) IU/L ALT 34 (<35) IU/L Alkaline Phosphatase 108 (38-126) U/L Troponin I < 0.012 (0.01-0.034) ng/mL NT-Pro-B Natriuret Pep 106 (<125) pg/mL Total Protein 7.2 (6.3-8.2) g/dL Albumin 4.1 (3.5-5.0) g/dL Globulin 3.1 (1.7-4.1) g/dL Albumin/Globulin Ratio 1.3 (1.0-2.8) TSH (0.47-4.68) uIU/mL SARS-CoV-2 (PCR) (Negative) 03/27/23 03/27/23 03/27/23 Range/Units 07:40 07:40 07:40 WBC (4.5-11.0) X10^3/uL RBC (4.0-5.2) X10^6/uL Hgb (12.0-16.0) g/dL Hct (36-46) % MCV (80-100) fL MCH (26-34) PG MCHC (30-36) % RDW (11.6-14.8) % Plt Count (150-400) X10^3/uL Neut % (Auto) (50-75) % Lymph % (Auto) (25-40) % Morehouse % (Auto) (3-14) % Eos % (Auto) (2-4) % Baso % (Auto) (0-2) % Neut # (Auto) (0721-1317) /uL Lymph # (Auto) (2285-4725) /uL Morehouse # (Auto) (0-900) /uL Eos # (Auto) (0-450) /uL Baso # (Auto) (0-100) /uL PT (10.1-12.7) SECONDS INR (0.9-1.3) Sodium (137-145) mmol/L Potassium (3.4-5.1) mmol/L Chloride (98-107) mmol/L Carbon Dioxide (22-32) mmol/L BUN (7-17) mg/dL Creatinine (0.52-1.04) mg/dL Estimated GFR (>60) mL/min BUN/Creatinine Ratio (6-22) Glucose (70-100) mg/dL Lactate 1.1 (0.7-2.1) mmol/L Calcium (8.4-10.2) mg/dL Magnesium 1.8 (1.6-2.3) mg/dL Total Bilirubin (0.2-1.3) mg/dL AST (14-36) IU/L ALT (<35) IU/L Alkaline Phosphatase (38-126) U/L Troponin I (0.01-0.034) ng/mL NT-Pro-B Natriuret Pep (<125) pg/mL Total Protein (6.3-8.2) g/dL Albumin (3.5-5.0) g/dL Globulin (1.7-4.1) g/dL Albumin/Globulin Ratio (1.0-2.8) TSH 0.952 (0.47-4.68) uIU/mL SARS-CoV-2 (PCR) (Negative) 01/29/23 01/29/23 Range/Units 07:50 10:00 WBC (4.5-11.0) X10^3/uL RBC (4.0-5.2) X10^6/uL Hgb (12.0-16.0) g/dL Hct (36-46) % MCV (80-100) fL MCH (26-34) PG MCHC (30-36) % RDW (11.6-14.8) % Plt Count (150-400) X10^3/uL Neut % (Auto) (50-75) % Lymph % (Auto) (25-40) % Morehouse % (Auto) (3-14) % Eos % (Auto) (2-4) % Baso % (Auto) (0-2) % Neut # (Auto) (4565-3003) /uL Lymph # (Auto) (3974-6511) /uL Morehouse # (Auto) (0-900) /uL Eos # (Auto) (0-450) /uL Baso # (Auto) (0-100) /uL PT (10.1-12.7) SECONDS INR (0.9-1.3) Sodium (137-145) mmol/L Potassium (3.4-5.1) mmol/L Chloride (98-107) mmol/L Carbon Dioxide (22-32) mmol/L BUN (7-17) mg/dL Creatinine (0.52-1.04) mg/dL Estimated GFR (>60) mL/min BUN/Creatinine Ratio (6-22) Glucose (70-100) mg/dL Lactate (0.7-2.1) mmol/L Calcium (8.4-10.2) mg/dL Magnesium (1.6-2.3) mg/dL Total Bilirubin (0.2-1.3) mg/dL AST (14-36) IU/L ALT (<35) IU/L Alkaline Phosphatase (38-126) U/L Troponin I < 0.012 (0.01-0.034) ng/mL NT-Pro-B Natriuret Pep (<125) pg/mL Total Protein (6.3-8.2) g/dL Albumin (3.5-5.0) g/dL Globulin (1.7-4.1) g/dL Albumin/Globulin Ratio (1.0-2.8) TSH (0.47-4.68) uIU/mL SARS-CoV-2 (PCR) Negative (Negative) Imaging Data Chest x-ray: Radiologist's Impression: Close Vascular Ultrasound (Signed) Moisés Jimenez - 01/29/23 Chest X-Ray (Signed) Moisés Jimenez - 01/29/23 Chest X-Ray (Signed) Jayesh Houser - 12/10/22 Chest X-Ray (Signed) Jessica Santiago - 10/09/22 Echocardiogram Ultrasound (Signed) Mei Bazan - 10/08/22 Abdomen/Pelvis CT (Signed) Viet Burton - 10/08/22 Chest X-Ray (Signed) David Fiore - 10/08/[address] (Signed) Viet Burton - 10/08/22 Chest X-Ray (Signed) David Fiore - 10/08/22 Chest CTA (Signed) Viet Burton - 10/08/22 Telemetry Strips 10/08/22 Telemetry Strips 10/08/22 Chest X-Ray (Signed) David Fiore - 09/16/22 Echocardiogram Ultrasound (Signed) Benson Jarrell - 07/14/22 EKG Rpt. 06/27/22 EKG Rpt. 06/27/22 Chest X-Ray (Signed) Jude Mora - 06/27/22 EKG Rpt. 06/24/22 Chest X-Ray (Signed) CallJono - 04/20/22 Mammogram Screening (Signed) Randi Pulliam - 12/16/21 Tibia/Fibula X-Ray (Signed) Viet Burton - 08/24/21 Echocardiogram Ultrasound (Signed) Nathan Chambers - 05/01/21 Chest X-Ray (Signed) Sandie Crystal - 04/29/21 Telemetry Strips 04/28/21 Chest X-Ray (Signed) Jono Herrera - 04/27/21 Echocardiogram Ultrasound (Signed) Mei Bazan - 10/15/20 Abdomen/Pelvis CT (Signed) Jono Herrera - 05/04/20 Abdomen/Pelvis CT (Signed) Pamela,Naga - 04/28/20 KUB X-Ray (Signed) Adebayo,David - 04/23/20 Lower Extremity Ultrasound (Signed) Yuli Moraic - 08/25/19 Foot X-Ray (Signed) LolyIsaiah - 08/25/19 Pelvis X-Ray (Signed) Anuja Dominique - 08/04/19 Chest X-Ray (Signed) CatinaDoni mayfieldence - 08/04/19 Tibia/Fibula X-Ray (Signed) CatinaAnuja mayfield - 08/04/19 Foot X-Ray (Signed) CatinaAnuja mayfield - 08/04/19 Ankle X-Ray (Signed) CatinaAnuja mayfield - 08/04/19 Shoulder X-Ray (Signed) Naga Santiago - 02/25/19 Mammogram Screening (Signed) Lobito Torres - 12/11/18 Abdomen/Pelvis CT (Signed) Jayme Oakes - 09/28/18 EKG Rpt. 08/30/18 Abdomen/Pelvis CT (Signed) Sandie Crystal - 08/10/18 Telemetry Strips 04/09/18 EKG Rpt. 03/20/18 Chest X-Ray (Signed) Anuja Dominique - 03/20/18 Launch?Image [address] [address] XRay Report Signed Patient: Minnie Price MR#: [id number] : 1965 Acct:[id number] Age/Sex: 57 / F Date of Service: 01/29/23 Loc: ED Accession Number: [id number] ?? Procedure: XR chest 1V Ordering Provider: Isamar Price D.O. PROCEDURE:? XR CHEST 1V ? INDICATIONS:? Shortness of breath ? TECHNIQUE:? One view of the chest was acquired.? ? COMPARISON:? [facility], , XR CHEST 1V, 12/10/2022, 11:34. ? FINDINGS:? ? Surgical changes and devices:? Left chest wall pacemaker leads are in the region of right atrium and right ventricle. ? Lungs and pleura:? Lungs are clear.? No pleural effusions or pneumothorax.? ? Mediastinum:? Mediastinal contours appear normal.? Heart size is normal.? ? Bones and chest wall:? No suspicious bony lesions.? Overlying soft tissues appear unremarkable.? ? IMPRESSION:? No acute cardiopulmonary pathology. ? ? Dictated by: Moisés Jimenez M.D. on 01/29/2023 at 8:07 ? ? Approved by: Moisés Jimenez M.D. on 01/29/2023 at 8:07?? US - DVT: Radiologist's Impression: [place] [address] Ultrasound Report Signed Patient: Minnie Price MR#: [id number] : 1965 Acct:[id number] Age/Sex: 57 / F Date of Service: 01/29/23 Loc: ED Accession Number: [id number] ?? Procedure: US periph venous low extrem lt Ordering Provider: Isamar Price D.O. PROCEDURE:? US PERIPH VENOUS LOW EXTREM LT ? INDICATIONS:? CHRONIC EDEMA ? TECHNIQUE:? Real-time imaging, as well as color and pulse Doppler interrogation, were performed of the lower extremity deep veins from the inguinal ligament to the popliteal fossa.? ? COMPARISON:? None. ? FINDINGS:? The common femoral, femoral and popliteal veins are normally compressible, and free of intraluminal thrombus.? Color and pulse Doppler demonstrate normal phasic intraluminal flow.? There is normal augmentation response to distal compression maneuver. ? ? There is a cystic structure seen in popliteal fossa measures 4.3 x 0.9 x 3.3 cm in size.? No internal vascularity. ? IMPRESSION:? No evidence of DVT in visualized left lower extremity veins. ? A Haines's cyst as above.? ? Dictated by: Moisés Jimenez M.D. on 01/29/2023 at 8:27 ? ? Approved by: Moisés Jimenez M.D. on 01/29/2023 at 8:30?? ECG Data Attestation: I personally reviewed and interpreted this ECG as follows: Prior ECG tracings: available for review Interpretation: Rate of 66, QRS of 114 QTC of 440. Patient has P waves with some QRS but not consistently possible AFib but is rate controlled. Patient has prior from 12/10/[address] segments appearing similar. At that time rate was 80. Repeat EKG atrially paced rhythm rate of 60 TX 190 QRS of 100 and QTC 428. No acute EKG changes appreciated compared to prior. [facility] Narrative Medical decision making narrative: This is a 57-year-old female comes to the emergency department for complaint of chest pain and shortness of breath chest discomfort and left arm discomfort started January 25, she presents today after developing some shortness of breath last night and into today. Patient has a history significant for cardiac arrest VFib with AICD placement. Patient's echo from 12/26/2022 was obtained from [facility] shows an EF of 55-60%, atrial septum is aneurysmal, no Doppler evidence of intra arterial shunt, mild mitral regurg left ventricular systolic function had significantly improved prior to comparison on previous exam there was mild left ventricular hypertrophy no obvious focal wall motion abnormalities but poor endocardial definition reduces the sensitivity pacemaker lead in the right ventricle. There was no pericardial fusion. Patient's labs including CBC, CMP, troponin and Mag show a stable anemia with hemoglobin 11.5 has prior from December of 2022 at the same, normal platelets and white count, INR is 1.2. COVID swab is negative. Electrolytes including sodium potassium and magnesium show a Mag 1.8 but potassium is 4.1 with a sodium of 138 glucose is 105 lactate negative with normal LFTs, troponin is negative and BNP is also negative. Chest x-ray shows no acute change, patient has cystic structure in the popliteal fossa on left lower extremity ultrasound consistent with Haines's cyst. Plan for repeat troponin at 2 hours and this is negative. No acute EKG changes from to . Patient's ICD was interrogated, Patient had dose of nitro although her chest pain is atypical this made change. It did drop patient's blood pressure. Discussed pain medication to see if this is helpful, discussed IV versus oral medication. Patient elects for oral. Patient case discussed with Cardiology from [facility], Dr. Chambers, reviewed patient's findings today he notes that she could be having some atrial dyssynchrony with her AFib and although she is rate controlled could potentially cardiovert to see if this improves her shortness of breath. She is an appropriate window on her anticoagulation He notes she would a negative cardiac catheterization October on the and has had normal echo with 60%. Discussed with patient she defers cardioversion at this time. We discussed risks versus benefits. She states she has had been in and out of atrial fibrillation in the past, she is intermittently paced in the department. Plan for discharge home with follow up with Cardiology. She states she feels lot of spasm in her neck so asked for a muscle relaxer and short-term pain medication. Discharge Plan Departure Patient Disposition: Home Clinical Impression: Atypical chest pain Activity Restrictions/Additional Instructions: Please follow-up with cardiology. As discussed Dr. Chambers did talk about cardioversion if you are having persistent symptoms. Continue your home medications as prescribed. Take your new prescriptions as Prescribed. This medication can make you sleepy do not drive, perform hazardous activities or make any major decisions while taking it. This medication will make you constipated please take a stool softener once to twice daily until stools are soft and regular. [facility] [place] Please returnFor new orWorseningSymptoms, new chest pain, shortnessOf breath, lightheadednessOr passingOut or otherNew orConcerningChanges. Prescriptions: New hydrocodone-acetaminophen 5-325 mg tablet 1 tab PO Q6H PRN (Reason: pain) Qty: 10 0RF cyclobenzaprine 10 mg tablet 10 mg PO Q8H Qty: 10 0RF No Action fluticasone propionate [Allergy Relief (fluticasone)] 50 mcg/actuation spray,suspension 2 spray intranasal DAILY PRN (Reason: allergy symptoms) Qty: 16 6RF Rx Instructions: administer into each nostril albuterol sulfate 90 mcg/actuation HFA aerosol inhaler 2 puff inhalation Q6H PRN (Reason: shortness of breath or wheezing) Qty: 6.7 5RF metoprolol succinate 25 mg tablet extended release 24 hr 12.5 mg PO DAILY Qty: 90 3RF pramipexole 0.5 mg tablet 0.5 mg PO BEDTIME Qty: 90 1RF ondansetron 4 mg tablet,disintegrating 4 mg PO Q6H PRN (Reason: nausea and vomiting) Qty: 7 0RF levothyroxine 125 mcg tablet 125 mcg PO DAILY Qty: 90 3RF Patient Comments: states has not taken for a long time aspirin [Adult Low Dose Aspirin] 81 mg tablet,delayed release (DR/EC) 81 mg PO DAILY famotidine 20 mg tablet 20 mg PO BID lisinopril 2.5 mg tablet 1.25 mg PO DAILY rosuvastatin 20 mg tablet 20 mg PO DAILY bupropion HCl 75 mg tablet 75 mg PO BID Eliquis 5 mg tablet 5 mg PO BID furosemide 20 mg tablet 20 mg PO DAILY methotrexate sodium 2.5 mg tablet 20 mg PO QWEEK Rx Instructions: 4 tabs in AM, 4 tabs in PM QWEEK fluticasone propionate 220 mcg/actuation HFA aerosol inhaler 2 puff inhalation BID Qty: 12 3RF potassium chloride 8 mEq capsule, extended release 8 meq PO DAILY Qty: 90 3RF Referrals: Jesse Jain MD [Primary Care Provider] - Stand Alone Forms: Patient Portal/API
--- NOTE | 2023-01-29 07:49 | DI.US.S_ITS ---
PROCEDURE: US PERIPH VENOUS LOW EXTREM LT INDICATIONS: CHRONIC EDEMA TECHNIQUE: Real-time imaging, as well as color and pulse Doppler interrogation, were performed of the lower extremity deep veins from the inguinal ligament to the popliteal fossa. COMPARISON: None. FINDINGS: The common femoral, femoral and popliteal veins are normally compressible, and free of intraluminal thrombus. Color and pulse Doppler demonstrate normal phasic intraluminal flow. There is normal augmentation response to distal compression maneuver. There is a cystic structure seen in popliteal fossa measures 4.3 x 0.9 x 3.3 cm in size. No internal vascularity. IMPRESSION: No evidence of DVT in visualized left lower extremity veins. A Haines's cyst as above. Dictated by: Moisés Jimenez M.D. on 01/29/2023 at 8:27 Approved by: Moisés Jimenez M.D. on 01/29/2023 at 8:30
[2023-01-29] MEDS: NITROGLYCERIN 0.4 MG SL TAB SL (07:56)
[2023-01-29 07:57] LABS: Add Manual Diff / Slide Review NO; Basophils Absolute Auto 0 /uL (0-100); Basophils Percent Auto 0.5 % (0-2); Eosinophils Absolute Auto 100 /uL (0-450); Eosinophils Percent Auto 0.8 % (2-4); Hematocrit 35.5 % (36-46); Hemoglobin 11.5 g/dL (12.0-16.0); Lymphocytes Absolute Auto 1400 /uL (1100-4500); Lymphocytes Percent Auto 18.4 % (25-40); Mean Corpuscular HGB Conc 32.4 % (30-36); Mean Corpuscular Hemoglobin 25.9 PG (26-34); Mean Corpuscular Volume 80.1 fL (80-100); Monocytes Absolute Auto 600 /uL (0-900); Monocytes Percent Auto 8.1 % (3-14); Neutrophils Absolute Auto 5300 /uL (1500-7000); Neutrophils Percent Auto 72.2 % (50-75); Platelet Count 167 X10^3/uL (150-400); Red Blood Cell Count 4.44 X10^6/uL (4.0-5.2); Red Cell Distribution Width 18.9 % (11.6-14.8); White Blood Cell Count 7.4 X10^3/uL (4.5-11.0)
[2023-01-29 08:00] LABS: INR 1.2 (0.9-1.3); Prothrombin Time 13.5 SECONDS (10.1-12.7)
--- NOTE | 2023-01-29 08:08 | PC.NURSE ---
Patient has [employer] brand Pacemaker, transmission sent via phone matilda, [facility] notified and states they received transmission and will relay information.
[2023-01-29 08:14] LABS: COVID19 -Nasal RAPID Negative (Negative)
[2023-01-29 08:20] LABS: Lactate (Lactic Acid) 1.1 mmol/L (0.7-2.1)
[2023-01-29 08:22] LABS: Alanine Aminotransferase 34 IU/L (<35); Albumin 4.1 g/dL (3.5-5.0); Albumin Globulin Ratio 1.3 (1.0-2.8); Alkaline Phosphatase 108 U/L (38-126); Aspartate Aminotransferase 24 IU/L (14-36); BUN Creatinine Ratio 22.4 (6-22); Bilirubin Total 0.5 mg/dL (0.2-1.3); Blood Urea Nitrogen 13 mg/dL (7-17); Calcium 8.6 mg/dL (8.4-10.2); Carbon Dioxide 27 mmol/L (22-32); Chloride 105 mmol/L (98-107); Estimated Glomerular Filt Rate > 60 mL/min (>60); Globulin 3.1 g/dL (1.7-4.1); Glucose 105 mg/dL (70-100); HEMOLYSIS < 15 (0-50); Magnesium 1.8 mg/dL (1.6-2.3); Potassium 4.1 mmol/L (3.4-5.1); Sodium 138 mmol/L (137-145); Total Protein 7.2 g/dL (6.3-8.2)
[2023-01-29 08:32] LABS: NT-proBNP (BNP-Adult 18+) 106 pg/mL (<125); Troponin I < 0.012 ng/mL (0.01-0.034)
[2023-01-29 08:51] LABS: Thyroid Stimulating Hormone 0.952 uIU/mL (0.47-4.68)
[2023-01-29] MEDS: HYDROCODONE/ACET 5/325 TABLET 1 TAB PO (08:57)
[2023-01-29 10:45] LABS: Troponin I < 0.012 ng/mL (0.01-0.034)
== END 2023-01-29 11:38 | disposition home or self-care (01) ==
PROVIDERS: Emergency Provider Emergency Medicine; PCP Internal Medicine
DX: R07.89 Other chest pain (principal); R60.0 Localized edema; Z20.822 Contact with and (suspected) exposure to COVID-19; Z79.01 Long term (current) use of anticoagulants
CPT/HCPCS: 36415; 71045; 80053; 83605; 83735; 83880; 84443; 84484; 85025; 85610; 87635; 93005; 93971; 99284; C9803

== ENCOUNTER 2023-02-04 06:29 | Emergency (ER) | payer OTHER, MEDICAID, SELFPAY ==
[2021-04-28 02:35] VITALS: BMI 41.9
[2023-02-04] VITALS (14 sets, daily range): BP systolic 92–109; BP diastolic 53–72; PULSE 68–89; RESP 13–25; TEMP 37.1; O2SAT 96–100; BMI 38.7
--- NOTE | 2023-02-04 06:43 | DI.RAD.S_ITS ---
PROCEDURE: XR CHEST 1V INDICATIONS: defib problem TECHNIQUE: One view of the chest was acquired. COMPARISON: [facility], CR, XR CHEST 1V, 01/29/2023, 7:49. FINDINGS: Surgical changes and devices: Dual lead left-sided pacer. Overlying monitoring wires. Lungs and pleura: Lungs are clear. No pleural effusions or pneumothorax. Mediastinum: The heart size is normal. The cardiomediastinal contour including mildly prominent AP window, remains stable. No acute central vascular congestion. Bones and chest wall: No suspicious bony lesions. Overlying soft tissues appear unremarkable. IMPRESSION: 1. No acute cardiopulmonary disease. 2. Stable mediastinal contour. Dictated by: Randi Pulliam M.D. on 02/04/2023 at 8:12 Approved by: Randi Pulliam M.D. on 02/04/2023 at 8:13
--- NOTE | 2023-02-04 06:44 | ED_ITS ---
HPI - General Adult <Willie Miller DO - Last Filed: 02/05/23 01:34> General Chief complaint: Arrhythmia/Palpitations Stated complaint: defibrillator alarm went off, felt like explosion Time Seen by Provider: 02/04/23 06:42 History of Present Illness HPI narrative: 57-year-old female smoker with history of VFib arrest and ICD placement in October, AFib, nonischemic cardiomyopathy presents with a chief complaint of her defibrillator firing this morning. She states she was in her normal state of health yesterday and woke up this morning and felt fluttering in her chest and was able to send a transmission of her defibrillator and soon thereafter it fired. She did not lose consciousness though she was feeling poorly briefly. She denied any chest pain but felt a bit short of breath and perhaps nauseated. She denies any change in her medications. She is had no vomiting or diarrhea. She states this is the 1st time it has fired since it was placed. Related Data Home Medications Medication Instructions Recorded Confirmed methotrexate sodium 2.5 mg tablet 20 mg PO QWEEK 06/30/22 10/19/22 apixaban 5 mg tablet (Eliquis) 5 mg PO BID 10/19/22 10/19/22 aspirin 81 mg tablet,delayed 81 mg PO DAILY 10/19/22 10/19/22 release (Adult Low Dose Aspirin) bupropion HCl 75 mg tablet 75 mg PO BID 10/19/22 10/19/22 famotidine 20 mg tablet 20 mg PO BID 10/19/22 10/19/22 furosemide 20 mg tablet 20 mg PO DAILY 10/19/22 10/19/22 lisinopril 2.5 mg tablet 1.25 mg PO DAILY 10/19/22 10/19/22 rosuvastatin 20 mg tablet 20 mg PO DAILY 10/19/22 10/19/22 Previous Rx's Medication Instructions Recorded fluticasone propionate 50 2 spray intranasal DAILY PRN 04/10/22 mcg/actuation nasal allergy symptoms #16 grams spray,suspension (Allergy Relief (fluticasone)) albuterol sulfate 90 mcg/actuation 2 puff inhalation Q6H PRN 08/07/22 aerosol inhaler shortness of breath or wheezing #6.7 grams metoprolol succinate 25 mg 12.5 mg PO DAILY #90 tabs 08/07/22 tablet,extended release 24 hr fluticasone propionate 220 2 puff inhalation BID #12 grams 09/25/22 mcg/actuation HFA aerosol inhaler potassium chloride 8 mEq 8 meq PO DAILY #90 caps 09/25/22 capsule,extended release pramipexole 0.5 mg tablet 0.5 mg PO BEDTIME restless leg #90 10/09/22 tabs ondansetron 4 mg disintegrating 4 mg PO Q6H PRN nausea and 10/16/22 tablet vomiting #7 tabs levothyroxine 125 mcg tablet 125 mcg PO DAILY #90 tabs 11/22/22 cyclobenzaprine 10 mg tablet 10 mg PO Q8H #10 tabs 01/29/23 hydrocodone 5 mg-acetaminophen 325 1 tab PO Q6H PRN pain #10 tabs 01/29/23 mg tablet magnesium 200 mg tablet 200 mg PO DAILY #30 tabs 02/04/23 Allergies Allergy/AdvReac Type Severity Reaction Status Date / Time animal dander [ANIMAL DANDER] Allergy Intermediate ITCHY Verified 12/10/22 11:31 WATERY EYES AND SNEEZING grass pollen AdvReac Intermediate itching Verified 12/10/22 11:31 house dust AdvReac Intermediate itching Verified 12/10/22 11:31 Review of Systems <Willie Miller DO - Last Filed: 02/05/23 01:34> Review of Systems Narrative: GENERAL: Denies chills, fatigue, malaise, fever, sweats. HEENT: Denies sinus pain, ear pain, sore throat, difficulty swallowing, dizziness. RESPIRATORY: Denies dyspnea, cough, wheezing, hemoptysis, sputum. CARDIOVASCULAR: See HPI GASTROINTESTINAL: Denies nausea, vomiting, abdominal pain, diarrhea, constipation, melena. : Denies dysuria, frequency, incontinence, hematuria, urinary retention. MUSCULOSKELETAL: denies weakness, joint pain, or bony pain SKIN: Denies rash, skin lesions, or other NEUROLOGIC: Denies weakness, headache, numbness, change in speech, confusion, seizures, incoordination. PSYCHIATRIC: No concerning psychosocial issues. 12 point review of systems is negative except for those stated above Patient History <Willie Miller DO - Last Filed: 02/05/23 01:34> Medical History Acquired hypothyroidism (~2016) Alcohol abuse Allergic rhinitis Cardiac arrest with ventricular fibrillation Cervical high risk HPV (human papillomavirus) test positive Depression (Unknown) Hypokalemia Morbid obesity Non-ischemic cardiomyopathy (~10/2022) Obstructive sleep apnea Peripheral edema (~2010) Restless leg Varicose veins of both lower extremities with complications (~2010) Surgical History History of Vasu-en-Y gastric bypass History of thyroidectomy S/P implantation of automatic cardioverter/defibrillator (AICD) (~10/2022) Status post breast lumpectomy Status post laparoscopic cholecystectomy Family History Sister Age: 59 History of breast cancer Son Drug overdose Social History marital status: household members: family occupational status: employed Smoking Status: Current some day smoker Tobacco: How many years used: 3 second hand exposure: No alcohol intake: current substance use type: does not use Type(s) of exercise: none Smoking Status: Current some day smoker tobacco type: cigarettes alcohol intake frequency: other Alcohol type: beer, wine and hard liquor Substance Use Type: marijuana Exam <Willie Miller DO - Last Filed: 02/05/23 01:34> Narrative Exam Narrative: GENERAL: [57] year old patient appears stated age. Well-developed patient, in mild distress. HEAD: Atraumatic. Normocephalic. EYES: Pupils equal round and reactive. Extraocular motions intact. No scleral icterus. No injection or drainage. ENT: Nose without bleeding, purulent drainage. Throat without erythema, tonsillar hypertrophy or exudate. Airway patent. NECK: Trachea midline. Non tender CARDIOVASCULAR: Regular rate and rhythm without murmurs, gallops, or rubs. RESPIRATORY: Clear to auscultation. Breath sounds equal bilaterally. No wheezes, rales, or rhonchi. GASTROINTESTINAL: Abdomen soft, non-tender, nondistended. EXTREMITIES: No edema or joint tenderness. BACK: Nontender without deformity or crepitance. No flank tenderness. NEURO: AOx3. SKIN: No rash or erythema of visible areas Initial Vital Signs Initial Vital Signs: Vital Signs Temperature 98.8 F 02/04/23 06:41 Pulse Rate 89 02/04/23 06:41 Respiratory Rate 18 02/04/23 06:41 Blood Pressure 109/72 02/04/23 06:41 Pulse Oximetry 97 02/04/23 06:41 Oxygen Delivery Method Room Air 02/04/23 06:41 <Isamar Price, DO - Last Filed: 02/05/23 08:06> Initial Vital Signs Initial Vital Signs: Vital Signs Temperature 98.8 F 02/04/23 06:41 Pulse Rate 89 02/04/23 06:41 Respiratory Rate 18 02/04/23 06:41 Blood Pressure 109/72 02/04/23 06:41 Pulse Oximetry 97 02/04/23 06:41 Oxygen Delivery Method Room Air 02/04/23 06:41 Course <Willie Miller DO - Last Filed: 02/05/23 01:34> Orders Ordered: Discontinued Medications Magnesium Sulfate (Magnesium Sulfate) 2 gm in 50 mls @ 150 mls/hr IV NOW ONE Stop: 02/04/23 08:42 Last Infusion: 02/04/23 08:56 Dose: 0 mls/hr Documented By: JOSIAH Co-signed By: KAMRAN Admin: 02/04/23 08:36 Dose: 150 mls/hr Documented By: JOSIAH Co-signed By: KAMRAN Sodium Chloride (Normal Saline 0.9%) 1,000 mls @ 500 mls/hr IV BOLUS PRN PRN Reason: Fluid replacement Last Infusion: 02/04/23 10:37 Dose: 0 mls/hr Documented By: Admin: 02/04/23 09:28 Dose: 500 mls/hr Documented By: JOSIAH Vital Signs Vital signs: Vital Signs - 8 hr 02/04/23 06:41 02/04/23 06:57 02/04/23 06:58 Temperature 98.8 F Pulse Rate 89 80 Respiratory Rate 18 15 Blood Pressure 109/72 101/61 Pulse Oximetry 97 98 Oxygen Delivery Method Room Air 02/04/23 06:58 02/04/23 07:00 02/04/23 07:00 Temperature Pulse Rate 79 78 Respiratory Rate 15 16 Blood Pressure 109/68 Pulse Oximetry 98 97 Oxygen Delivery Method 02/04/23 07:30 02/04/23 07:31 02/04/23 07:31 Temperature Pulse Rate 73 73 Respiratory Rate 13 25 H Blood Pressure 106/55 L Pulse Oximetry 96 97 Oxygen Delivery Method 02/04/23 08:00 02/04/23 08:00 02/04/23 08:30 Temperature Pulse Rate 71 71 Respiratory Rate 15 14 Blood Pressure 109/70 Pulse Oximetry 97 97 Oxygen Delivery Method 02/04/23 08:33 02/04/23 08:33 02/04/23 09:00 Temperature Pulse Rate 68 Respiratory Rate 20 Blood Pressure 102/60 97/57 L Pulse Oximetry 99 Oxygen Delivery Method 02/04/23 09:00 02/04/23 09:02 02/04/23 09:02 Temperature Pulse Rate 69 69 Respiratory Rate 23 20 Blood Pressure 100/64 Pulse Oximetry 97 98 Oxygen Delivery Method 02/04/23 09:30 02/04/23 09:30 Temperature Pulse Rate 73 Respiratory Rate 21 Blood Pressure 92/53 L Pulse Oximetry 98 Oxygen Delivery Method <Isamar Price DO - Last Filed: 02/05/23 08:06> Orders Ordered: Discontinued Medications Magnesium Sulfate (Magnesium Sulfate) 2 gm in 50 mls @ 150 mls/hr IV NOW ONE Stop: 02/04/23 08:42 Last Infusion: 02/04/23 08:56 Dose: 0 mls/hr Documented By: JOSIAH Co-signed By: KAMRAN Admin: 02/04/23 08:36 Dose: 150 mls/hr Documented By: JOSIAH Co-signed By: KAMRAN Sodium Chloride (Normal Saline 0.9%) 1,000 mls @ 500 mls/hr IV BOLUS PRN PRN Reason: Fluid replacement Last Infusion: 02/04/23 10:37 Dose: 0 mls/hr Documented By: Admin: 02/04/23 09:28 Dose: 500 mls/hr Documented By: JOSIAH Vital Signs Vital signs: Vital Signs - 8 hr 02/04/23 06:41 02/04/23 06:57 02/04/23 06:58 Temperature 98.8 F Pulse Rate 89 80 Respiratory Rate 18 15 Blood Pressure 109/72 101/61 Pulse Oximetry 97 98 Oxygen Delivery Method Room Air 02/04/23 06:58 02/04/23 07:00 02/04/23 07:00 Temperature Pulse Rate 79 78 Respiratory Rate 15 16 Blood Pressure 109/68 Pulse Oximetry 98 97 Oxygen Delivery Method 02/04/23 07:30 02/04/23 07:31 02/04/23 07:31 Temperature Pulse Rate 73 73 Respiratory Rate 13 25 H Blood Pressure 106/55 L Pulse Oximetry 96 97 Oxygen Delivery Method 02/04/23 08:00 02/04/23 08:00 02/04/23 08:30 Temperature Pulse Rate 71 71 Respiratory Rate 15 14 Blood Pressure 109/70 Pulse Oximetry 97 97 Oxygen Delivery Method 02/04/23 08:33 02/04/23 08:33 02/04/23 09:00 Temperature Pulse Rate 68 Respiratory Rate 20 Blood Pressure 102/60 97/57 L Pulse Oximetry 99 Oxygen Delivery Method 02/04/23 09:00 02/04/23 09:02 02/04/23 09:02 Temperature Pulse Rate 69 69 Respiratory Rate 23 20 Blood Pressure 100/64 Pulse Oximetry 97 98 Oxygen Delivery Method 02/04/23 09:30 02/04/23 09:30 Temperature Pulse Rate 73 Respiratory Rate 21 Blood Pressure 92/53 L Pulse Oximetry 98 Oxygen Delivery Method Medical Decision Making <Willie Miller, DO - Last Filed: 02/05/23 01:34> Lab Data 02/04/23 06:50 02/04/23 06:50 Labs: Lab Results 02/04/23 02/04/23 02/04/23 Range/Units 06:50 06:50 06:50 WBC 4.8 (4.5-11.0) X10^3/uL RBC 4.33 (4.0-5.2) X10^6/uL Hgb 11.0 L (12.0-16.0) g/dL Hct 34.3 L (36-46) % MCV 79.3 L (80-100) fL MCH 25.5 L (26-34) PG MCHC 32.2 (30-36) % RDW 19.8 H (11.6-14.8) % Plt Count 171 (150-400) X10^3/uL Neut % (Auto) 61.4 (50-75) % Lymph % (Auto) 27.5 (25-40) % Cameron % (Auto) 9.2 (3-14) % Eos % (Auto) 1.4 L (2-4) % Baso % (Auto) 0.5 (0-2) % Neut # (Auto) 2900 (3644-1495) /uL Lymph # (Auto) 1300 (2080-9394) /uL Cameron # (Auto) 400 (0-900) /uL Eos # (Auto) 100 (0-450) /uL Baso # (Auto) 0 (0-100) /uL PT 13.1 H (10.1-12.7) SECONDS INR 1.1 (0.9-1.3) Sodium 141 (137-145) mmol/L Potassium 4.0 (3.4-5.1) mmol/L Chloride 108 H (98-107) mmol/L Carbon Dioxide 27 (22-32) mmol/L BUN 11 (7-17) mg/dL Creatinine 0.57 (0.52-1.04) mg/dL Estimated GFR > 60 (>60) mL/min BUN/Creatinine Ratio 19.3 (6-22) Glucose 112 H (70-100) mg/dL Calcium 8.4 (8.4-10.2) mg/dL Magnesium (1.6-2.3) mg/dL Total Bilirubin 0.3 (0.2-1.3) mg/dL AST 25 (14-36) IU/L ALT 31 (<35) IU/L Alkaline Phosphatase 91 (38-126) U/L Total Creatine Kinase (30-135) U/L CK-MB (CK-2) CK-MB (CK-2) Rel Index Troponin I (0.01-0.034) ng/mL Total Protein 6.6 (6.3-8.2) g/dL Albumin 3.6 (3.5-5.0) g/dL Globulin 3.0 (1.7-4.1) g/dL Albumin/Globulin Ratio 1.2 (1.0-2.8) 02/04/23 02/04/23 Range/Units 06:50 08:55 WBC (4.5-11.0) X10^3/uL RBC (4.0-5.2) X10^6/uL Hgb (12.0-16.0) g/dL Hct (36-46) % MCV (80-100) fL MCH (26-34) PG MCHC (30-36) % RDW (11.6-14.8) % Plt Count (150-400) X10^3/uL Neut % (Auto) (50-75) % Lymph % (Auto) (25-40) % Cameron % (Auto) (3-14) % Eos % (Auto) (2-4) % Baso % (Auto) (0-2) % Neut # (Auto) (4866-6689) /uL Lymph # (Auto) (3358-1327) /uL Cameron # (Auto) (0-900) /uL Eos # (Auto) (0-450) /uL Baso # (Auto) (0-100) /uL PT (10.1-12.7) SECONDS INR (0.9-1.3) Sodium (137-145) mmol/L Potassium (3.4-5.1) mmol/L Chloride (98-107) mmol/L Carbon Dioxide (22-32) mmol/L BUN (7-17) mg/dL Creatinine (0.52-1.04) mg/dL Estimated GFR (>60) mL/min BUN/Creatinine Ratio (6-22) Glucose (70-100) mg/dL Calcium (8.4-10.2) mg/dL Magnesium 1.7 (1.6-2.3) mg/dL Total Bilirubin (0.2-1.3) mg/dL AST (14-36) IU/L ALT (<35) IU/L Alkaline Phosphatase (38-126) U/L Total Creatine Kinase 24 L (30-135) U/L CK-MB (CK-2) TNP CK-MB (CK-2) Rel Index TNP Troponin I < 0.012 0.018 (0.01-0.034) ng/mL Total Protein (6.3-8.2) g/dL Albumin (3.5-5.0) g/dL Globulin (1.7-4.1) g/dL Albumin/Globulin Ratio (1.0-2.8) <Isamar Price, DO - Last Filed: 02/05/23 08:06> Lab Data Labs: Lab Results 02/04/23 02/04/23 02/04/23 Range/Units 06:50 06:50 06:50 WBC 4.8 (4.5-11.0) X10^3/uL RBC 4.33 (4.0-5.2) X10^6/uL Hgb 11.0 L (12.0-16.0) g/dL Hct 34.3 L (36-46) % MCV 79.3 L (80-100) fL MCH 25.5 L (26-34) PG MCHC 32.2 (30-36) % RDW 19.8 H (11.6-14.8) % Plt Count 171 (150-400) X10^3/uL Neut % (Auto) 61.4 (50-75) % Lymph % (Auto) 27.5 (25-40) % Cameron % (Auto) 9.2 (3-14) % Eos % (Auto) 1.4 L (2-4) % Baso % (Auto) 0.5 (0-2) % Neut # (Auto) 2900 (4391-9375) /uL Lymph # (Auto) 1300 (7381-9014) /uL Cameron # (Auto) 400 (0-900) /uL Eos # (Auto) 100 (0-450) /uL Baso # (Auto) 0 (0-100) /uL PT 13.1 H (10.1-12.7) SECONDS INR 1.1 (0.9-1.3) Sodium 141 (137-145) mmol/L Potassium 4.0 (3.4-5.1) mmol/L Chloride 108 H (98-107) mmol/L Carbon Dioxide 27 (22-32) mmol/L BUN 11 (7-17) mg/dL Creatinine 0.57 (0.52-1.04) mg/dL Estimated GFR > 60 (>60) mL/min BUN/Creatinine Ratio 19.3 (6-22) Glucose 112 H (70-100) mg/dL Calcium 8.4 (8.4-10.2) mg/dL Magnesium (1.6-2.3) mg/dL Total Bilirubin 0.3 (0.2-1.3) mg/dL AST 25 (14-36) IU/L ALT 31 (<35) IU/L Alkaline Phosphatase 91 (38-126) U/L Total Creatine Kinase (30-135) U/L CK-MB (CK-2) CK-MB (CK-2) Rel Index Troponin I (0.01-0.034) ng/mL Total Protein 6.6 (6.3-8.2) g/dL Albumin 3.6 (3.5-5.0) g/dL Globulin 3.0 (1.7-4.1) g/dL Albumin/Globulin Ratio 1.2 (1.0-2.8) 02/04/23 02/04/23 Range/Units 06:50 08:55 WBC (4.5-11.0) X10^3/uL RBC (4.0-5.2) X10^6/uL Hgb (12.0-16.0) g/dL Hct (36-46) % MCV (80-100) fL MCH (26-34) PG MCHC (30-36) % RDW (11.6-14.8) % Plt Count (150-400) X10^3/uL Neut % (Auto) (50-75) % Lymph % (Auto) (25-40) % Cameron % (Auto) (3-14) % Eos % (Auto) (2-4) % Baso % (Auto) (0-2) % Neut # (Auto) (0798-4442) /uL Lymph # (Auto) (8219-1975) /uL Cameron # (Auto) (0-900) /uL Eos # (Auto) (0-450) /uL Baso # (Auto) (0-100) /uL PT (10.1-12.7) SECONDS INR (0.9-1.3) Sodium (137-145) mmol/L Potassium (3.4-5.1) mmol/L Chloride (98-107) mmol/L Carbon Dioxide (22-32) mmol/L BUN (7-17) mg/dL Creatinine (0.52-1.04) mg/dL Estimated GFR (>60) mL/min BUN/Creatinine Ratio (6-22) Glucose (70-100) mg/dL Calcium (8.4-10.2) mg/dL Magnesium 1.7 (1.6-2.3) mg/dL Total Bilirubin (0.2-1.3) mg/dL AST (14-36) IU/L ALT (<35) IU/L Alkaline Phosphatase (38-126) U/L Total Creatine Kinase 24 L (30-135) U/L CK-MB (CK-2) TNP CK-MB (CK-2) Rel Index TNP Troponin I < 0.012 0.018 (0.01-0.034) ng/mL Total Protein (6.3-8.2) g/dL Albumin (3.5-5.0) g/dL Globulin (1.7-4.1) g/dL Albumin/Globulin Ratio (1.0-2.8) Imaging Data Chest x-ray: Radiologist's Impression: Close Chest X-Ray (Signed) Randi Pulliam - 02/04/23 Vascular Ultrasound (Signed) Moisés Jimenez - 01/29/23 Chest X-Ray (Signed) Moisés Jimenez - 01/29/23 Outside Echo 12/26/22 Chest X-Ray (Signed) Jayesh Houser - 12/10/22 Chest X-Ray (Signed) Jessica Santiago - 10/09/22 Echocardiogram Ultrasound (Signed) Mei Bazan - 10/08/22 Abdomen/Pelvis CT (Signed) Viet Burton - 10/08/22 Chest X-Ray (Signed) David Fiore - 10/08/[address] (Signed) Viet Burton - 10/08/22 Chest X-Ray (Signed) David Fiore - 10/08/22 Chest CTA (Signed) Viet Burton - 10/08/22 Telemetry Strips 10/08/22 Telemetry Strips 10/08/22 Chest X-Ray (Signed) David Fiore - 09/16/22 Echocardiogram Ultrasound (Signed) Benson Jarrell - 07/14/22 EKG Rpt. 06/27/22 EKG Rpt. 06/27/22 Chest X-Ray (Signed) Jude Mora - 06/27/22 EKG Rpt. 06/24/22 Chest X-Ray (Signed) Jono Herrera - 04/20/22 Mammogram Screening (Signed) Randi Pulliam - 12/16/21 Tibia/Fibula X-Ray (Signed) Viet Burton - 08/24/21 Echocardiogram Ultrasound (Signed) Nathan Chambers - 05/01/21 Chest X-Ray (Signed) Sandie Crystal - 04/29/21 Telemetry Strips 04/28/21 Chest X-Ray (Signed) Call,Jono - 04/27/21 Echocardiogram Ultrasound (Signed) Mei Bazan - 10/15/20 Abdomen/Pelvis CT (Signed) Call,Jono - 05/04/20 Abdomen/Pelvis CT (Signed) Naga Santiago - 04/28/20 KUB X-Ray (Signed) David Fiore - 04/23/20 Lower Extremity Ultrasound (Signed) Jude Mora - 08/25/19 Foot X-Ray (Signed) LolyIsaiah - 08/25/19 Pelvis X-Ray (Signed) CatinaAnuja mayfield - 08/04/19 Chest X-Ray (Signed) CatinaAnuja mayfield - 08/04/19 Tibia/Fibula X-Ray (Signed) Anuja Dominique - 08/04/19 Foot X-Ray (Signed) CatinaDoni mayfieldence - 08/04/19 Ankle X-Ray (Signed) Anuja Dominique - 08/04/19 Shoulder X-Ray (Signed) Naga Santiago - 02/25/19 Mammogram Screening (Signed) Lobito Torres - 12/11/18 Abdomen/Pelvis CT (Signed) Jayme Oakes - 09/28/18 EKG Rpt. 08/30/18 Abdomen/Pelvis CT (Signed) Sandie Crystal - 08/10/18 Telemetry Strips 04/09/18 EKG Rpt. 03/20/18 Chest X-Ray (Signed) Anuja Dominique - 03/20/18 Launch?[address] [address] XRay Report Signed Patient: Minnie Price MR#: [id number] : 1965 Acct:[id number] Age/Sex: 57 / F Date of Service: 02/04/23 Loc: ED Accession Number: [id number] ?? Procedure: XR chest 1V Ordering Provider: Willie Miller D.O. PROCEDURE:? XR CHEST 1V ? INDICATIONS:? defib problem ? TECHNIQUE:? One view of the chest was acquired.? ? COMPARISON:? [facility], CR, XR CHEST 1V, 01/29/2023, 7:49. ? FINDINGS:? ? Surgical changes and devices:? Dual lead left-sided pacer.? Overlying monitoring wires. ? Lungs and pleura:? Lungs are clear.? No pleural effusions or pneumothorax.? ? Mediastinum:? The heart size is normal.? The cardiomediastinal contour including mildly prominent AP window, remains stable.? No acute central vascular congestion. ? Bones and chest wall:? No suspicious bony lesions.? Overlying soft tissues appear unremarkable.? ? IMPRESSION:? ? 1. No acute cardiopulmonary disease.? ? 2. Stable mediastinal contour.? ? ? Dictated by: Randi Pulliam M.D. on 02/04/2023 at 8:12 ? ? Approved by: Randi Pulliam M.D. on 02/04/2023 at 8:13?? ECG Data Attestation: I personally reviewed and interpreted this ECG as follows: Prior ECG tracings: available for review Interpretation: Sinus rhythm rate of 74 ND 170 QRS of 108 QTC of 415. No acute ST elevation depression noted. Questionable patient has extra are P waves in lead 3 only but appears to be normal sinus rhythm without extra beats in all other leads. Sinus rhythm, rate of 74, pr of 168, qrs of 116, qrc 441. Patrient has inverted 3 different from prior. MDM Narrative Medical decision making narrative: This is a 57-year-old female with known VFib cardiac arrest subsequent ICD placement last October. Patient felt some fluttering today and ICD fired at home. Patient felt poorly right at that time but feels better now. EKG shows sinus rhythm accept 1 lead has possible change. Patient labs show appropriate CBC with no anemia, electrolytes show a potassium of 4 Mag is 1.7, renal function and other electrolytes are appropriate patient had a TSH on January 29 which was not appropriate range and a negative troponin. Chest x-ray shows a little bit slightly less clear on the left but this may be due to motion artifact versus infection. Device was interrogated in the department. Patient states she also has not matilda on her phone and was sent from the phone but she received no feedback. Spoke with Dr. Osei from Cardiology. She agrees plan to give some magnesium to replace to get closer to a level of 2 although not clearly the cause for her today. We were able to get the device interrogation and she appears to have an episode of V fib at 6:10 a.m. with beats per minute of 187 that was terminated with an ATP, no full shocks delivered according to interrogation. Device appears to be working appropriately. Patient has not had any additional shocks in the department. Repeat EKG and troponin reviewed. Slight trend upwards but still negative which seems appropriate with a recent ATP. Discussed with Dr. Osei, cardiology after interrogation report received: Discussed appear she had did have an ATP but not true defibrillation for episode of VF with beats of 187 per minute that appears to have terminated. We did discuss patient's Mag was slightly low. Discussed patient's heart rates been appropriate but blood pressure is on the low side today, reviewed all of patient's other issues and her current medications. Dr. Beaver was able to review her chart looks like she is taking 25 mg of metoprolol extended release daily she does recommend we bump up to twice daily states it should make a major change in her blood pressure. Patient notes she is actually 12.5 mg once daily she had been on 25 mg but had been decreased. Discussed can try 12.5 mg twice daily but to watch her blood pressure closely and if she is feeling worse to back back down her usual dose. She states she is noted that since she is been on 12.5 mg she is having more frequent palpitations. Reviewed her findings today, need for follow-up. Patient feels comfortable with this plan. Discharge Plan Departure Patient Disposition: Home Clinical Impression: AICD discharge Activity Restrictions/Additional Instructions: Your device appears is working appropriately. You did have a paced shock called an ATP and not a full ventricular fibrillation which appears to have stopped a episode of ventricular tachycardia on your device interrogation. I spoke with your cardiology team they recommended increasing your metoprolol to 12.5 mg twice daily, rather than 12.5 mg once daily. It may be beneficial to take an oral magnesium daily as well. 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 Please return if you are having any worsening symptoms, increasing or persistent lightheadedness, chest pain, shortness of breath, reoccurring shocks, palpitations or fluttering that are persisting, new swelling in your extremities or persistently low heart rate or blood pressure or other new or concerning changes. Prescriptions: New magnesium 200 mg tablet 200 mg PO DAILY Qty: 30 0RF No Action fluticasone propionate [Allergy Relief (fluticasone)] 50 mcg/actuation spray,suspension 2 spray intranasal DAILY PRN (Reason: allergy symptoms) Qty: 16 6RF Rx Instructions: administer into each nostril albuterol sulfate 90 mcg/actuation HFA aerosol inhaler 2 puff inhalation Q6H PRN (Reason: shortness of breath or wheezing) Qty: 6.7 5RF metoprolol succinate 25 mg tablet extended release 24 hr 12.5 mg PO DAILY Qty: 90 3RF pramipexole 0.5 mg tablet 0.5 mg PO BEDTIME Qty: 90 1RF ondansetron 4 mg tablet,disintegrating 4 mg PO Q6H PRN (Reason: nausea and vomiting) Qty: 7 0RF levothyroxine 125 mcg tablet 125 mcg PO DAILY Qty: 90 3RF Patient Comments: states has not taken for a long time aspirin [Adult Low Dose Aspirin] 81 mg tablet,delayed release (DR/EC) 81 mg PO DAILY famotidine 20 mg tablet 20 mg PO BID lisinopril 2.5 mg tablet 1.25 mg PO DAILY rosuvastatin 20 mg tablet 20 mg PO DAILY bupropion HCl 75 mg tablet 75 mg PO BID Eliquis 5 mg tablet 5 mg PO BID furosemide 20 mg tablet 20 mg PO DAILY methotrexate sodium 2.5 mg tablet 20 mg PO QWEEK Rx Instructions: 4 tabs in AM, 4 tabs in PM QWEEK fluticasone propionate 220 mcg/actuation HFA aerosol inhaler 2 puff inhalation BID Qty: 12 3RF potassium chloride 8 mEq capsule, extended release 8 meq PO DAILY Qty: 90 3RF hydrocodone-acetaminophen 5-325 mg tablet 1 tab PO Q6H PRN (Reason: pain) Qty: 10 0RF cyclobenzaprine 10 mg tablet 10 mg PO Q8H Qty: 10 0RF Referrals: Bill Dejesus MD [Physician] - Jesse Jain MD [Primary Care Provider] - Stand Alone Forms: Patient Portal/API
--- NOTE | 2023-02-04 06:59 | PC.NURSE ---
pt states she was in the kitchen when her aicd went off so she came in to be evaluated
[2023-02-04 07:00] LABS: Add Manual Diff / Slide Review NO; Basophils Absolute Auto 0 /uL (0-100); Basophils Percent Auto 0.5 % (0-2); Eosinophils Absolute Auto 100 /uL (0-450); Eosinophils Percent Auto 1.4 % (2-4); Hematocrit 34.3 % (36-46); Lymphocytes Absolute Auto 1300 /uL (1100-4500); Lymphocytes Percent Auto 27.5 % (25-40); Mean Corpuscular HGB Conc 32.2 % (30-36); Mean Corpuscular Hemoglobin 25.5 PG (26-34); Mean Corpuscular Volume 79.3 fL (80-100); Monocytes Absolute Auto 400 /uL (0-900); Monocytes Percent Auto 9.2 % (3-14); Neutrophils Absolute Auto 2900 /uL (1500-7000); Neutrophils Percent Auto 61.4 % (50-75); Platelet Count 171 X10^3/uL (150-400); Red Blood Cell Count 4.33 X10^6/uL (4.0-5.2); Red Cell Distribution Width 19.8 % (11.6-14.8); White Blood Cell Count 4.8 X10^3/uL (4.5-11.0)
[2023-02-04 07:05] LABS: INR 1.1 (0.9-1.3); Prothrombin Time 13.1 SECONDS (10.1-12.7)
[2023-02-04 07:10] LABS: Alanine Aminotransferase 31 IU/L (<35); Albumin 3.6 g/dL (3.5-5.0); Albumin Globulin Ratio 1.2 (1.0-2.8); Alkaline Phosphatase 91 U/L (38-126); Aspartate Aminotransferase 25 IU/L (14-36); BUN Creatinine Ratio 19.3 (6-22); Bilirubin Total 0.3 mg/dL (0.2-1.3); Blood Urea Nitrogen 11 mg/dL (7-17); Calcium 8.4 mg/dL (8.4-10.2); Carbon Dioxide 27 mmol/L (22-32); Chloride 108 mmol/L (98-107); Creatine Kinase 24 U/L (30-135); Estimated Glomerular Filt Rate > 60 mL/min (>60); Glucose 112 mg/dL (70-100); HEMOLYSIS < 15 (0-50); Magnesium 1.7 mg/dL (1.6-2.3); Sodium 141 mmol/L (137-145); Total Protein 6.6 g/dL (6.3-8.2)
[2023-02-04 07:23] LABS: Troponin I < 0.012 ng/mL (0.01-0.034)
[2023-02-04] MEDS: MAGNESIUM SULFATE 2 GM/50 ML PIGGYBACK IV (08:36)
[2023-02-04 09:26] LABS: Troponin I 0.018 ng/mL (0.01-0.034)
[2023-02-04] MEDS: SODIUM CHLORIDE 0.9% 1,000 ML 500 ML IV (09:28)
--- NOTE | 2023-02-04 09:38 | PC.NURSE ---
attempted to interrogate pacemaker. pt has a newer model pacemaker. Our device is not updated to read her pacemaker. [facility] called. They were able to fax over her report from this am when she was shocked at home. Dr. mata aware
== END 2023-02-04 10:40 | disposition home or self-care (01) ==
PROVIDERS: Emergency Medicine; Emergency Provider Emergency Medicine; PCP Internal Medicine
DX: I49.8 Other specified cardiac arrhythmias (principal); Z45.02 Encounter for adjustment and management of automatic implantable cardiac defibrillator
CPT/HCPCS: 36415; 71045; 80053; 82550; 83735; 84484; 85025; 85610; 93005; J3475

== ENCOUNTER 2023-02-04 14:33 | Emergency (ER) | payer OTHER, MEDICAID, SELFPAY ==
[2021-04-28 02:35] VITALS: BMI 41.9
[2023-02-04] VITALS (14 sets, daily range): BP systolic 94–139; BP diastolic 52–70; PULSE 60–80; RESP 14–30; TEMP 36.6; O2SAT 95–100
--- NOTE | 2023-02-04 14:41 | DI.RAD.S_ITS ---
PROCEDURE: XR CHEST 1V INDICATIONS: chest pain TECHNIQUE: One view of the chest was acquired. COMPARISON: [facility], CR, XR CHEST 2 VIEWS, 10/14/2022, 9:18. [facility], CR, XR CHEST 1V, 12/10/2022, 11:34. [facility], CR, XR CHEST 1V, 01/29/2023, 7:49. [facility], CR, XR CHEST 1V, 02/04/2023, 6:52. FINDINGS: Surgical changes and devices: An AICD is seen. The leads are seen in stable positions. Lungs and pleura: On this semiupright portable chest examination, no large pneumothorax or large pleural effusions are seen. No focal infiltrates are seen. Mediastinum: Mediastinal contours appear normal. Heart size is mildly enlarged. Bones and chest wall: No suspicious bony lesions. Age-appropriate bony degenerative changes are seen. Overlying soft tissues appear unremarkable. IMPRESSION: Mild cardiomegaly. Clear lungs. Postoperative and degenerative changes are seen. Dictated by: David Fiore M.D. on 02/04/2023 at 14:12 Approved by: David Fiore M.D. on 02/04/2023 at 14:12
[2023-02-04 14:49] LABS: Add Manual Diff / Slide Review NO; Basophils Absolute Auto 0 /uL (0-100); Basophils Percent Auto 0.4 % (0-2); Eosinophils Absolute Auto 100 /uL (0-450); Eosinophils Percent Auto 1.1 % (2-4); Hematocrit 35.6 % (36-46); Hemoglobin 11.4 g/dL (12.0-16.0); Lymphocytes Absolute Auto 2600 /uL (1100-4500); Lymphocytes Percent Auto 35.5 % (25-40); Mean Corpuscular HGB Conc 32.1 % (30-36); Mean Corpuscular Hemoglobin 25.7 PG (26-34); Mean Corpuscular Volume 79.9 fL (80-100); Monocytes Absolute Auto 1000 /uL (0-900); Monocytes Percent Auto 13.5 % (3-14); Neutrophils Absolute Auto 3500 /uL (1500-7000); Neutrophils Percent Auto 49.5 % (50-75); Platelet Count 195 X10^3/uL (150-400); Red Blood Cell Count 4.46 X10^6/uL (4.0-5.2); Red Cell Distribution Width 19.6 % (11.6-14.8); White Blood Cell Count 7.2 X10^3/uL (4.5-11.0)
--- NOTE | 2023-02-04 14:49 | ED.ARRPALP ---
HPI - Arrhythmia/Palpitations General Chief Complaint: Dizziness Stated Complaint: heart feels fluttery, shaky, hot spells, dizzy Time Seen by Provider: 02/04/23 14:47 Source: patient Mode of arrival: Ambulatory History of Present Illness HPI narrative: This is a 57-year-old female smoker history of VFib arrest ICD placement in October, AFib, nonischemic cardiomyopathy who presents with her AICD firing earlier this morning found to be an ATP and not an actual defibrillation on her interrogation appeared to be an appropriate discharge with several beats of V-tach. Case was discussed with Cardiology. Patient states she was feeling much better returned home took her home medications including her morning metoprolol dose and within a couple hours started to feel shaky, lightheaded like she might pass out. She states this was after she ate much. She states she felt really lightheaded. She got hot felt shaky and felt like wishing feel. She states no shocks. She denies chest pain or pressure, no shortness of breath, no nausea or vomiting, no issues with bowel movements or urination. No diarrhea, no constipation. No new swelling in her extremities. Patient states no other changes. Related Data Home Medications Medication Instructions Recorded Confirmed methotrexate sodium 2.5 mg tablet 20 mg PO QWEEK 06/30/22 10/19/22 apixaban 5 mg tablet (Eliquis) 5 mg PO BID 10/19/22 10/19/22 aspirin 81 mg tablet,delayed 81 mg PO DAILY 10/19/22 10/19/22 release (Adult Low Dose Aspirin) bupropion HCl 75 mg tablet 75 mg PO BID 10/19/22 10/19/22 famotidine 20 mg tablet 20 mg PO BID 10/19/22 10/19/22 furosemide 20 mg tablet 20 mg PO DAILY 10/19/22 10/19/22 lisinopril 2.5 mg tablet 1.25 mg PO DAILY 10/19/22 10/19/22 rosuvastatin 20 mg tablet 20 mg PO DAILY 10/19/22 10/19/22 Previous Rx's Medication Instructions Recorded fluticasone propionate 50 2 spray intranasal DAILY PRN 04/10/22 mcg/actuation nasal allergy symptoms #16 grams spray,suspension (Allergy Relief (fluticasone)) albuterol sulfate 90 mcg/actuation 2 puff inhalation Q6H PRN 08/07/22 aerosol inhaler shortness of breath or wheezing #6.7 grams metoprolol succinate 25 mg 12.5 mg PO DAILY #90 tabs 08/07/22 tablet,extended release 24 hr fluticasone propionate 220 2 puff inhalation BID #12 grams 09/25/22 mcg/actuation HFA aerosol inhaler potassium chloride 8 mEq 8 meq PO DAILY #90 caps 09/25/22 capsule,extended release pramipexole 0.5 mg tablet 0.5 mg PO BEDTIME restless leg #90 10/09/22 tabs ondansetron 4 mg disintegrating 4 mg PO Q6H PRN nausea and 10/16/22 tablet vomiting #7 tabs levothyroxine 125 mcg tablet 125 mcg PO DAILY #90 tabs 11/22/22 cyclobenzaprine 10 mg tablet 10 mg PO Q8H #10 tabs 01/29/23 hydrocodone 5 mg-acetaminophen 325 1 tab PO Q6H PRN pain #10 tabs 01/29/23 mg tablet magnesium 200 mg tablet 200 mg PO DAILY #30 tabs 02/04/23 Allergies Allergy/AdvReac Type Severity Reaction Status Date / Time animal dander [ANIMAL DANDER] Allergy Intermediate ITCHY Verified 12/10/22 11:31 WATERY EYES AND SNEEZING grass pollen AdvReac Intermediate itching Verified 12/10/22 11:31 house dust AdvReac Intermediate itching Verified 12/10/22 11:31 Review of Systems Review of Systems ROS Unobtainable: All systems reviewed & are unremarkable except as noted in HPI and below Patient History Medical History Acquired hypothyroidism (~2016) Alcohol abuse Allergic rhinitis Cardiac arrest with ventricular fibrillation Cervical high risk HPV (human papillomavirus) test positive Depression (Unknown) Hypokalemia Morbid obesity Non-ischemic cardiomyopathy (~10/2022) Obstructive sleep apnea Peripheral edema (~2010) Restless leg Varicose veins of both lower extremities with complications (~2010) Surgical History History of Vasu-en-Y gastric bypass History of thyroidectomy S/P implantation of automatic cardioverter/defibrillator (AICD) (~10/2022) Status post breast lumpectomy Status post laparoscopic cholecystectomy Family History Sister Age: 59 History of breast cancer Son Drug overdose Social History marital status: household members: family occupational status: employed Smoking Status: Current some day smoker Tobacco: How many years used: 3 second hand exposure: No alcohol intake: current substance use type: does not use Type(s) of exercise: none Smoking Status: Current some day smoker tobacco type: cigarettes alcohol intake frequency: other Alcohol type: beer, wine and hard liquor Substance Use Type: marijuana Exam Narrative Exam Narrative: GENERAL: Alert and oriented x three, mild distress HEENT: Head normocephalic, atraumatic, EOMI, pupils reactive, face symmetric, moist mucous membranes NECK: Supple, full range of motion CARDIOVASCULAR: Regular rate and rhythm without murmurs, rubs or gallops. No JVD. No swelling bilateral lower extremities. RESPIRATORY: Breath sounds equal bilaterally, no wheezes rales or rhonchi. ABDOMEN: Soft, nontender. Normoactive bowel sounds all 4 quadrants. No guarding or rebound, rigidity, no mass : No CVA tenderness EXTREMITIES: Normal range of motion, no clubbing or edema. Neurovascularly intact NEUROLOGICAL: Cranial nerves II through XII grossly intact. Moving all extremities SKIN: Warm, dry, no petechiae, no rashes or lesions. Initial Vital Signs Initial Vital Signs: Vital Signs Temperature 98 F 02/04/23 14:35 Pulse Rate 69 02/04/23 14:35 Respiratory Rate 20 02/04/23 14:35 Blood Pressure 139/70 02/04/23 14:35 Pulse Oximetry 95 02/04/23 14:35 Oxygen Delivery Method Room Air 02/04/23 14:35 Course Orders Ordered: ED Orders 02/04/23 14:41 XR chest 1V Stat 02/04/23 14:42 BNP [NT-proBNP (BNP-Adult 18+)] Stat Complete Blood Count AUTO DIFF Stat Comprehensive Metabolic Panel Stat D Dimer Stat Lipase Stat Magnesium Stat PTT Partial Thromboplastin Jesu Stat Prothrombin Time INR Stat Troponin & CK Cardiac Panel Stat 02/04/23 14:44 EKG-12 Lead Stat 02/04/23 16:03 CT angio chest PE protocol Stat 02/04/23 17:00 Trop I [Troponin I] Stat Discontinued Medications Aspirin (Aspirin 81 Mg Chew Tab) 324 mg PO NOW ONE Stop: 02/04/23 14:42 Last Admin: 02/04/23 14:45 Dose: Not Given Documented By: GUERLINE Potassium Chloride (Potassium Chloride 20 Meq/15 Ml Udc) 40 meq PO NOW ONE Stop: 02/04/23 16:08 Last Admin: 02/04/23 16:16 Dose: 40 meq Documented By: KAMRAN Vital Signs Vital signs: Vital Signs - 8 hr 02/04/23 14:35 02/04/23 14:49 02/04/23 14:50 Temperature 98 F Pulse Rate 69 66 Respiratory Rate 20 21 Blood Pressure 139/70 124/55 L Pulse Oximetry 95 100 Oxygen Delivery Method Room Air 02/04/23 14:50 02/04/23 15:00 02/04/23 15:00 Temperature Pulse Rate 67 65 Respiratory Rate 20 15 Blood Pressure 109/56 L Pulse Oximetry 100 100 Oxygen Delivery Method 02/04/23 15:10 02/04/23 15:16 02/04/23 15:16 Temperature Pulse Rate 63 63 Respiratory Rate 14 14 Blood Pressure 99/58 L Pulse Oximetry 100 100 Oxygen Delivery Method 02/04/23 15:18 02/04/23 15:18 02/04/23 15:20 Temperature Pulse Rate 66 80 Respiratory Rate 30 H 29 H Blood Pressure 100/65 Pulse Oximetry 100 99 Oxygen Delivery Method 02/04/23 15:30 02/04/23 15:30 02/04/23 15:40 Temperature Pulse Rate 60 Respiratory Rate 14 Blood Pressure 94/54 L 110/53 L Pulse Oximetry 99 Oxygen Delivery Method 02/04/23 15:40 02/04/23 16:21 02/04/23 17:10 Temperature Pulse Rate 61 64 Respiratory Rate 15 Blood Pressure 102/63 99/54 L Pulse Oximetry 98 Oxygen Delivery Method Room Air 02/04/23 15:41 02/04/23 18:01 Temperature Pulse Rate 60 63 Respiratory Rate 14 18 Blood Pressure 100/52 L Pulse Oximetry 99 100 Oxygen Delivery Method Room Air MDM - Arrhythmia/Palpitations Lab Data 02/04/23 14:42 02/04/23 14:42 Labs: Lab Results 02/04/23 02/04/23 02/04/23 Range/Units 14:42 14:42 14:42 WBC 7.2 (4.5-11.0) X10^3/uL RBC 4.46 (4.0-5.2) X10^6/uL Hgb 11.4 L (12.0-16.0) g/dL Hct 35.6 L (36-46) % MCV 79.9 L (80-100) fL MCH 25.7 L (26-34) PG MCHC 32.1 (30-36) % RDW 19.6 H (11.6-14.8) % Plt Count 195 (150-400) X10^3/uL Neut % (Auto) 49.5 L (50-75) % Lymph % (Auto) 35.5 (25-40) % Power % (Auto) 13.5 (3-14) % Eos % (Auto) 1.1 L (2-4) % Baso % (Auto) 0.4 (0-2) % Neut # (Auto) 3500 (3094-4077) /uL Lymph # (Auto) 2600 (8216-3018) /uL Power # (Auto) 1000 H (0-900) /uL Eos # (Auto) 100 (0-450) /uL Baso # (Auto) 0 (0-100) /uL PT 12.5 (10.1-12.7) SECONDS INR 1.1 (0.9-1.3) APTT 33 (26-36) SECONDS D-Dimer (<500) ng/ml Sodium 140 (137-145) mmol/L Potassium 3.0 L (3.4-5.1) mmol/L Chloride 106 (98-107) mmol/L Carbon Dioxide 21 L (22-32) mmol/L BUN 9 (7-17) mg/dL Creatinine 0.57 (0.52-1.04) mg/dL Estimated GFR > 60 (>60) mL/min BUN/Creatinine Ratio 15.8 (6-22) Glucose 65 L (70-100) mg/dL Calcium 8.1 L (8.4-10.2) mg/dL Magnesium 2.0 (1.6-2.3) mg/dL Total Bilirubin 0.3 (0.2-1.3) mg/dL AST 30 (14-36) IU/L ALT 34 (<35) IU/L Alkaline Phosphatase 97 (38-126) U/L Total Creatine Kinase 34 (30-135) U/L CK-MB (CK-2) TNP CK-MB (CK-2) Rel Index TNP Troponin I < 0.012 (0.01-0.034) ng/mL NT-Pro-B Natriuret Pep 329 H (<125) pg/mL Total Protein 7.5 (6.3-8.2) g/dL Albumin 4.1 (3.5-5.0) g/dL Globulin 3.4 (1.7-4.1) g/dL Albumin/Globulin Ratio 1.2 (1.0-2.8) Lipase 110 (23-300) U/L 02/04/23 02/04/23 Range/Units 14:42 17:00 WBC (4.5-11.0) X10^3/uL RBC (4.0-5.2) X10^6/uL Hgb (12.0-16.0) g/dL Hct (36-46) % MCV (80-100) fL MCH (26-34) PG MCHC (30-36) % RDW (11.6-14.8) % Plt Count (150-400) X10^3/uL Neut % (Auto) (50-75) % Lymph % (Auto) (25-40) % Power % (Auto) (3-14) % Eos % (Auto) (2-4) % Baso % (Auto) (0-2) % Neut # (Auto) (5623-8866) /uL Lymph # (Auto) (5561-8123) /uL Power # (Auto) (0-900) /uL Eos # (Auto) (0-450) /uL Baso # (Auto) (0-100) /uL PT (10.1-12.7) SECONDS INR (0.9-1.3) APTT (26-36) SECONDS D-Dimer 689 H (<500) ng/ml Sodium (137-145) mmol/L Potassium (3.4-5.1) mmol/L Chloride (98-107) mmol/L Carbon Dioxide (22-32) mmol/L BUN (7-17) mg/dL Creatinine (0.52-1.04) mg/dL Estimated GFR (>60) mL/min BUN/Creatinine Ratio (6-22) Glucose (70-100) mg/dL Calcium (8.4-10.2) mg/dL Magnesium (1.6-2.3) mg/dL Total Bilirubin (0.2-1.3) mg/dL AST (14-36) IU/L ALT (<35) IU/L Alkaline Phosphatase (38-126) U/L Total Creatine Kinase (30-135) U/L CK-MB (CK-2) CK-MB (CK-2) Rel Index Troponin I < 0.012 (0.01-0.034) ng/mL NT-Pro-B Natriuret Pep (<125) pg/mL Total Protein (6.3-8.2) g/dL Albumin (3.5-5.0) g/dL Globulin (1.7-4.1) g/dL Albumin/Globulin Ratio (1.0-2.8) Lipase (23-300) U/L Point of Care Testing Glucose POC 72 Imaging Data Chest x-ray: Radiologist's Impresson: Close Chest X-Ray (Signed) David Fiore - 02/04/23 Chest X-Ray (Signed) Randi Pulliam - 02/04/23 Vascular Ultrasound (Signed) Moisés Jimenez - 01/29/23 Chest X-Ray (Signed) Moisés Jimenez - 01/29/23 Outside Echo 12/26/22 Chest X-Ray (Signed) Jayesh Houser - 12/10/22 Chest X-Ray (Signed) Jessica Santiago - 10/09/22 Echocardiogram Ultrasound (Signed) Mei Bazan - 10/08/22 Abdomen/Pelvis CT (Signed) Viet Burton - 10/08/22 Chest X-Ray (Signed) David Fiore - 10/08/[address] (Signed) Viet Burton - 10/08/22 Chest X-Ray (Signed) David Fiore - 10/08/22 Chest CTA (Signed) Viet Burton - 10/08/22 Telemetry Strips 10/08/22 Telemetry Strips 10/08/22 Chest X-Ray (Signed) David Fiore - 09/16/22 Echocardiogram Ultrasound (Signed) Benson Jarrell - 07/14/22 EKG Rpt. 06/27/22 EKG Rpt. 06/27/22 Chest X-Ray (Signed) Jude Mora - 06/27/22 EKG Rpt. 06/24/22 Chest X-Ray (Signed) Call,Jono - 04/20/22 Mammogram Screening (Signed) Randi Pulliam - 12/16/21 Tibia/Fibula X-Ray (Signed) Viet Burton - 08/24/21 Echocardiogram Ultrasound (Signed) Nathan Chambers - 05/01/21 Chest X-Ray (Signed) Sandie Crystal - 04/29/21 Telemetry Strips 04/28/21 Chest X-Ray (Signed) Call,Jono - 04/27/21 Echocardiogram Ultrasound (Signed) BeniMei - 10/15/20 Abdomen/Pelvis CT (Signed) Call,Jono - 05/04/20 Abdomen/Pelvis CT (Signed) Naga Santiago - 04/28/20 KUB X-Ray (Signed) David Fiore - 04/23/20 Lower Extremity Ultrasound (Signed) Jude Mora - 08/25/19 Foot X-Ray (Signed) Isaiah Salcido - 08/25/19 Pelvis X-Ray (Signed) Anuja Dominique - 08/04/19 Chest X-Ray (Signed) Doni Dominiqueence - 08/04/19 Tibia/Fibula X-Ray (Signed) Catina,Anuja - 08/04/19 Foot X-Ray (Signed) Catina,Anuja - 08/04/19 Ankle X-Ray (Signed) Catina,Anuja - 08/04/19 Shoulder X-Ray (Signed) Brian Santiagou - 02/25/19 Mammogram Screening (Signed) Lobito Torres - 12/11/18 Abdomen/Pelvis CT (Signed) Jayme Oakes - 09/28/18 EKG Rpt. 08/30/18 Abdomen/Pelvis CT (Signed) Sandie Crystal - 08/10/18 Telemetry Strips 04/09/18 EKG Rpt. 03/20/18 Chest X-Ray (Signed) Anuja Dominique - 03/20/18 Launch?[facility] [address] [address] XRay Report Signed Patient: Minnie Price MR#: [id number] : 1965 Acct:[id number] Age/Sex: 57 / F Date of Service: 02/04/23 Loc: ED Accession Number: [id number] ?? Procedure: XR chest 1V Ordering Provider: Isamar Price D.O. PROCEDURE:? XR CHEST 1V ? INDICATIONS:? chest pain ? TECHNIQUE:? One view of the chest was acquired.? ? COMPARISON:? [facility], CR, XR CHEST 2 VIEWS, 10/14/2022, 9:18.? [facility], CR, XR CHEST 1V, 12/10/2022, 11:34.? [facility], CR, XR CHEST 1V, 01/29/2023, 7:49.? [facility], CR, XR CHEST 1V, 02/04/2023, 6:52. ? FINDINGS:? ? Surgical changes and devices:? An AICD is seen.? The leads are seen in stable positions.? ? ? Lungs and pleura:? On this semiupright portable chest examination, no large pneumothorax or large pleural effusions are seen.? No focal infiltrates are seen.? ? Mediastinum:? Mediastinal contours appear normal.? Heart size is mildly enlarged.? ? Bones and chest wall:? No suspicious bony lesions.? Age-appropriate bony degenerative changes are seen. ? Overlying soft tissues appear unremarkable.? ? ? IMPRESSION:? Mild cardiomegaly. ? Clear lungs. ? Postoperative and degenerative changes are seen.? ? ? Dictated by: David Fiore M.D. on 02/04/2023 at 14:12 ? ? Approved by: David Fiore M.D. on 02/04/2023 at 14:12?? CT scan - chest: Radiologist's Impresson: Close Chest CTA (Signed) David Fiore - 02/04/23 Chest X-Ray (Signed) David Fiore - 02/04/23 Chest X-Ray (Signed) Randi Pulliam - 02/04/23 Vascular Ultrasound (Signed) Moisés Jimenez - 01/29/23 Chest X-Ray (Signed) Moisés Jimenez - 01/29/23 Outside Echo 12/26/22 Chest X-Ray (Signed) Jayesh Houser - 12/10/22 Chest X-Ray (Signed) Jessica Santiago - 10/09/22 Echocardiogram Ultrasound (Signed) Mei Bazan - 10/08/22 Abdomen/Pelvis CT (Signed) Viet Burton - 10/08/22 Chest X-Ray (Signed) David Fiore - 10/08/[address] (Signed) Viet Burton - 10/08/22 Chest X-Ray (Signed) David Fiore - 10/08/22 Chest CTA (Signed) Viet Burton - 10/08/22 Telemetry Strips 10/08/22 Telemetry Strips 10/08/22 Chest X-Ray (Signed) David Fiore - 09/16/22 Echocardiogram Ultrasound (Signed) Benson Jarrell - 07/14/22 EKG Rpt. 06/27/22 EKG Rpt. 06/27/22 Chest X-Ray (Signed) Jude Mora - 06/27/22 EKG Rpt. 06/24/22 Chest X-Ray (Signed) Jono Herrera - 04/20/22 Mammogram Screening (Signed) Randi Pulliam - 12/16/21 Tibia/Fibula X-Ray (Signed) Viet Burton - 08/24/21 Echocardiogram Ultrasound (Signed) Nathan Chambers - 05/01/21 Chest X-Ray (Signed) Sandie Crystal - 04/29/21 Telemetry Strips 04/28/21 Chest X-Ray (Signed) Call,Jono - 04/27/21 Echocardiogram Ultrasound (Signed) Mei Bazan - 10/15/[address] [address] [address] Scan Report Signed Patient: Minnie Price MR#: [id number] : 1965 Acct:[id number] Age/Sex: 57 / F Date of Service: 02/04/23 Loc: ED Accession Number: [id number] ?? Procedure: CT angio chest PE protocol Ordering Provider: Isamar Price D.O. PROCEDURE:? CT ANGIO CHEST PE PROTOCOL ? INDICATIONS:? palpitations, shakey, lightheaded, had AICD, ATP fire early ? TECHNIQUE:? After the administration of intravenous contrast, 2 mm thick sections acquired from the pulmonary apices to the posterior costophrenic angles.? 3-dimensional maximum intensity projection (MIP) coronal and sagittal reformats were then acquired through the thorax.? For radiation dose reduction, the following was used:? automated exposure control, adjustment of mA and/or kV according to patient size.? ? COMPARISON:? [facility], CT, CT ANGIO CHEST PE PROTOCOL, 10/08/2022, 10:58.? [facility], CR, XR CHEST 1V, 02/04/2023, 6:52.? [facility], CR, XR CHEST 1V, 02/04/2023, 14:41. ? FINDINGS:? Image quality:? Excellent.? ? Pulmonary arteries:? Negative for filling defects to suggest pulmonary embolism.? The pulmonary arteries are enlarged, with the pulmonary trunk measuring 4.1 cm transversely. ? Lungs and pleura:? Lungs are clear.? No pleural effusions or pneumothorax.? Central and peripheral airways are patent.? ? Mediastinum:? Heart size is normal, without pericardial effusion.? No mediastinal or hilar adenopathy.? Thoracic aorta is normal in caliber and enhancement.? Esophagus is normal in caliber.? There is a small hiatal hernia.? ? Bones and chest wall:? No suspicious bony lesions.? Remote, healing rib fractures are seen.? Age-appropriate bony degenerative changes are seen.? ? Thyroid gland is asymmetric, with the right side smaller than the left..? No axillary or supraclavicular adenopathy.? ? Abdomen:? Bariatric surgery can be seen.? Cholecystectomy clips are seen.? The visualized portions of the upper abdominal structures are otherwise unremarkable for imaging technique. ? IMPRESSION:? Negative for pulmonary embolism. ? Enlarged pulmonary trunk, with the main pulmonary artery trunk measuring 4.1 cm, which is stable from the prior.? Please correlate with potential pulmonary artery hypertension. ? Additional findings:? Asymmetric thyroid, please correlate with prior partial thyroidectomy Remote, healing rib fractures. Small hiatal hernia Bariatric surgery Cholecystectomy ? Dictated by: David Fiore M.D. on 02/04/2023 at 16:04 ? ? Approved by: David Fiore M.D. on 02/04/2023 at 16:07?? ECG Data Attestation: I personally reviewed and interpreted this ECG as follows: Prior ECG tracings: available for review Interpretation: Sinus rhythm PVC. Rate of 72 NV 160 QRS of 122 QTC of 438. V1 V2 appear possibly flipped from prior but otherwise no other acute changes from most recent EKG earlier this morning. MDM Narrative Medical decision making narrative: Patient presents with complaint of just feeling generally unwell shaky and like she might pass out earlier she feels better now she was seen this morning prior to this episode for her defibrillator firing it was an ATP and not a be shock. Patient repeat labs to her potassium is now 3 was 4 earlier today, CO2 is 21, BNP is 329 troponins negative this behavior 3rd troponin for the day. Glucose is 65. Renal functions normal with normal LFTs and lipase. Patient blood pressure was lower this morning she had not taken her metoprolol when she 1st arrived this morning, on recheck here she still in the low and I suspect she got hypotensive with this. She has not had any weight loss or anything but looking more remotely back pressures have been more 120s to 130s. Discussed holding her lisinopril but continue metoprolol for rate and rhythm control. Dimer was elevated we reviewed her CT angio findings possibly pulmonary hypertension but she is had a catheterization recently in October she states she was told it was fine but discussed she should shared this with Cardiology. Discharge Plan Departure Patient Disposition: Home Clinical Impression: Lightheadedness Activity Restrictions/Additional Instructions: Follow-up with Cardiology, your CT angio today showed changes that might be consistent pulmonary hypertension discussed with them if you need additional workup to evaluate this. Do not increase your metoprolol today. If your blood pressure is persisting in the 100 range then stop your lisinopril but I would continue taking your 12.5 mg metoprolol once daily. Your glucose was slightly low today as well as her potassium on your rechecked, follow-up with your physician to have this number rechecked. Please return if you are feeling ill, chest pain, shortness of breath recurrent palpitations, if you are ICD fires, for feeling lightheaded or like are going to pass out, new swelling or any other new or concerning changes. Prescriptions: No Action fluticasone propionate [Allergy Relief (fluticasone)] 50 mcg/actuation spray,suspension 2 spray intranasal DAILY PRN (Reason: allergy symptoms) Qty: 16 6RF Rx Instructions: administer into each nostril albuterol sulfate 90 mcg/actuation HFA aerosol inhaler 2 puff inhalation Q6H PRN (Reason: shortness of breath or wheezing) Qty: 6.7 5RF metoprolol succinate 25 mg tablet extended release 24 hr 12.5 mg PO DAILY Qty: 90 3RF pramipexole 0.5 mg tablet 0.5 mg PO BEDTIME Qty: 90 1RF ondansetron 4 mg tablet,disintegrating 4 mg PO Q6H PRN (Reason: nausea and vomiting) Qty: 7 0RF levothyroxine 125 mcg tablet 125 mcg PO DAILY Qty: 90 3RF Patient Comments: states has not taken for a long time aspirin [Adult Low Dose Aspirin] 81 mg tablet,delayed release (DR/EC) 81 mg PO DAILY famotidine 20 mg tablet 20 mg PO BID lisinopril 2.5 mg tablet 1.25 mg PO DAILY rosuvastatin 20 mg tablet 20 mg PO DAILY bupropion HCl 75 mg tablet 75 mg PO BID Eliquis 5 mg tablet 5 mg PO BID furosemide 20 mg tablet 20 mg PO DAILY methotrexate sodium 2.5 mg tablet 20 mg PO QWEEK Rx Instructions: 4 tabs in AM, 4 tabs in PM QWEEK fluticasone propionate 220 mcg/actuation HFA aerosol inhaler 2 puff inhalation BID Qty: 12 3RF potassium chloride 8 mEq capsule, extended release 8 meq PO DAILY Qty: 90 3RF magnesium 200 mg tablet 200 mg PO DAILY Qty: 30 0RF hydrocodone-acetaminophen 5-325 mg tablet 1 tab PO Q6H PRN (Reason: pain) Qty: 10 0RF cyclobenzaprine 10 mg tablet 10 mg PO Q8H Qty: 10 0RF Referrals: Bill Dejesus MD [Physician] - Jesse Jain MD [Primary Care Provider] - Stand Alone Forms: Patient Portal/API
--- NOTE | 2023-02-04 14:52 | PC.NURSE ---
[employer] interrogator does not work with patients device. Contacted [facility] at for the transition advisor to assist in receiving the interrogation report via fax. Patients model number is [id number], device is a [place], unknown serial number. Calling this 24 hour number with option 3 until ED moiz device is upgraded.
[2023-02-04 15:09] LABS: INR 1.1 (0.9-1.3); Prothrombin Time 12.5 SECONDS (10.1-12.7)
[2023-02-04 15:12] LABS: PTT Partial Thromboplastin Tim 33 SECONDS (26-36)
[2023-02-04 15:14] LABS: Alanine Aminotransferase 34 IU/L (<35); Albumin 4.1 g/dL (3.5-5.0); Albumin Globulin Ratio 1.2 (1.0-2.8); Alkaline Phosphatase 97 U/L (38-126); Aspartate Aminotransferase 30 IU/L (14-36); BUN Creatinine Ratio 15.8 (6-22); Bilirubin Total 0.3 mg/dL (0.2-1.3); Blood Urea Nitrogen 9 mg/dL (7-17); Calcium 8.1 mg/dL (8.4-10.2); Carbon Dioxide 21 mmol/L (22-32); Chloride 106 mmol/L (98-107); Creatine Kinase 34 U/L (30-135); Estimated Glomerular Filt Rate > 60 mL/min (>60); Globulin 3.4 g/dL (1.7-4.1); Glucose 65 mg/dL (70-100); HEMOLYSIS < 15 (0-50); Lipase 110 U/L (23-300); Sodium 140 mmol/L (137-145); Total Protein 7.5 g/dL (6.3-8.2)
[2023-02-04 15:25] LABS: D Dimer 689 ng/ml (<500); NT-proBNP (BNP-Adult 18+) 329 pg/mL (<125); Troponin I < 0.012 ng/mL (0.01-0.034)
--- NOTE | 2023-02-04 16:03 | DI.CT.S_ITS ---
PROCEDURE: CT ANGIO CHEST PE PROTOCOL INDICATIONS: palpitations, shakey, lightheaded, had AICD, ATP fire early TECHNIQUE: After the administration of intravenous contrast, 2 mm thick sections acquired from the pulmonary apices to the posterior costophrenic angles. 3-dimensional maximum intensity projection (MIP) coronal and sagittal reformats were then acquired through the thorax. For radiation dose reduction, the following was used: automated exposure control, adjustment of mA and/or kV according to patient size. COMPARISON: [facility], CT, CT ANGIO CHEST PE PROTOCOL, 10/08/2022, 10:58. [facility], CR, XR CHEST 1V, 02/04/2023, 6:52. [facility], CR, XR CHEST 1V, 02/04/2023, 14:41. FINDINGS: Image quality: Excellent. Pulmonary arteries: Negative for filling defects to suggest pulmonary embolism. The pulmonary arteries are enlarged, with the pulmonary trunk measuring 4.1 cm transversely. Lungs and pleura: Lungs are clear. No pleural effusions or pneumothorax. Central and peripheral airways are patent. Mediastinum: Heart size is normal, without pericardial effusion. No mediastinal or hilar adenopathy. Thoracic aorta is normal in caliber and enhancement. Esophagus is normal in caliber. There is a small hiatal hernia. Bones and chest wall: No suspicious bony lesions. Remote, healing rib fractures are seen. Age-appropriate bony degenerative changes are seen. Thyroid gland is asymmetric, with the right side smaller than the left.. No axillary or supraclavicular adenopathy. Abdomen: Bariatric surgery can be seen. Cholecystectomy clips are seen. The visualized portions of the upper abdominal structures are otherwise unremarkable for imaging technique. IMPRESSION: Negative for pulmonary embolism. Enlarged pulmonary trunk, with the main pulmonary artery trunk measuring 4.1 cm, which is stable from the prior. Please correlate with potential pulmonary artery hypertension. Additional findings: Asymmetric thyroid, please correlate with prior partial thyroidectomy Remote, healing rib fractures. Small hiatal hernia Bariatric surgery Cholecystectomy Dictated by: David Fiore M.D. on 02/04/2023 at 16:04 Approved by: David Fiore M.D. on 02/04/2023 at 16:07
[2023-02-04] MEDS: POTASSIUM CHLORIDE 20 MEQ/15 ML UDC 40 MEQ PO (16:16)
[2023-02-04 17:28] LABS: Troponin I < 0.012 ng/mL (0.01-0.034)
== END 2023-02-04 18:36 | disposition home or self-care (01) ==
PROVIDERS: Emergency Provider Emergency Medicine; PCP Internal Medicine
DX: R42 Dizziness and giddiness (principal); R07.9 Chest pain, unspecified; R79.89 Other specified abnormal findings of blood chemistry; Z79.01 Long term (current) use of anticoagulants; Z79.899 Other long term (current) drug therapy; I49.8 Other specified cardiac arrhythmias; Z45.02 Encounter for adjustment and management of automatic implantable cardiac defibrillator
CPT/HCPCS: 36415; 71045; 71275; 80053; 82550; 82962; 83690; 83735; 83880; 84484; 85025; 85379; 85610; 85730; 93005; 96365; 99284; J3475; Q9967

== ENCOUNTER 2023-02-11 03:26 | Emergency (ER) | payer OTHER, MEDICAID, SELFPAY ==
[2021-04-28 02:35] VITALS: BMI 41.9
[2023-02-11] VITALS (9 sets, daily range): BP systolic 110–136; BP diastolic 66–95; PULSE 74–104; RESP 9–18; TEMP 36.8; O2SAT 81–100; BMI 38.4
[2023-02-11] MEDS: SODIUM CHLORIDE 0.9% 1,000 ML 125 ML IV (03:41)
[2023-02-11 03:43] LABS: Add Manual Diff / Slide Review NO; Basophils Absolute Auto 0 /uL (0-100); Basophils Percent Auto 0.8 % (0-2); Eosinophils Absolute Auto 100 /uL (0-450); Eosinophils Percent Auto 1.6 % (2-4); Hematocrit 37.8 % (36-46); Hemoglobin 12.2 g/dL (12.0-16.0); Lymphocytes Absolute Auto 2400 /uL (1100-4500); Lymphocytes Percent Auto 39.9 % (25-40); Mean Corpuscular HGB Conc 32.3 % (30-36); Mean Corpuscular Hemoglobin 25.8 PG (26-34); Monocytes Absolute Auto 500 /uL (0-900); Monocytes Percent Auto 8.3 % (3-14); Neutrophils Absolute Auto 3000 /uL (1500-7000); Neutrophils Percent Auto 49.4 % (50-75); Platelet Count 188 X10^3/uL (150-400); Red Blood Cell Count 4.72 X10^6/uL (4.0-5.2); Red Cell Distribution Width 19.8 % (11.6-14.8); White Blood Cell Count 6.1 X10^3/uL (4.5-11.0)
--- NOTE | 2023-02-11 03:46 | ED.ARRPALP ---
HPI - Arrhythmia/Palpitations General Chief Complaint: Arrhythmia/Palpitations Stated Complaint: thinks in AFIB Time Seen by Provider: 02/11/23 03:30 Source: patient Mode of arrival: Ambulatory History of Present Illness HPI narrative: Patient is a 57-year-old female. Has known cardiac issues. Had a VFib arrest with subsequent AICD placement of the end of last year. She is on anticoagulation. Has been on anticoagulation twice a day since then. She is also had issues with AFib. Is on metoprolol twice a day. Has had issues with low blood pressure so this doses low. Has been seen here in the emergency department 2 times over the past week. The 1st 1 was 4 a firing of her AICD which is the 1st time that this has ever happened. She is also been having issues with palpitations and lightheadedness. Prior visits her magnesium and potassium were low and those have been replaced. She states that this morning she woke up with some shortness of breath and feel like her heart was skipping beats. Not necessarily fast. She is having no chest pain. She thinks she is in atrial fibrillation. Related Data Home Medications Medication Instructions Recorded Confirmed methotrexate sodium 2.5 mg tablet 20 mg PO QWEEK 06/30/22 10/19/22 apixaban 5 mg tablet (Eliquis) 5 mg PO BID 10/19/22 10/19/22 aspirin 81 mg tablet,delayed 81 mg PO DAILY 10/19/22 10/19/22 release (Adult Low Dose Aspirin) bupropion HCl 75 mg tablet 75 mg PO BID 10/19/22 10/19/22 famotidine 20 mg tablet 20 mg PO BID 10/19/22 10/19/22 furosemide 20 mg tablet 20 mg PO DAILY 10/19/22 10/19/22 lisinopril 2.5 mg tablet 1.25 mg PO DAILY 10/19/22 10/19/22 rosuvastatin 20 mg tablet 20 mg PO DAILY 10/19/22 10/19/22 Previous Rx's Medication Instructions Recorded fluticasone propionate 50 2 spray intranasal DAILY PRN 04/10/22 mcg/actuation nasal allergy symptoms #16 grams spray,suspension (Allergy Relief (fluticasone)) albuterol sulfate 90 mcg/actuation 2 puff inhalation Q6H PRN 08/07/22 aerosol inhaler shortness of breath or wheezing #6.7 grams metoprolol succinate 25 mg 12.5 mg PO DAILY #90 tabs 08/07/22 tablet,extended release 24 hr fluticasone propionate 220 2 puff inhalation BID #12 grams 09/25/22 mcg/actuation HFA aerosol inhaler potassium chloride 8 mEq 8 meq PO DAILY #90 caps 09/25/22 capsule,extended release pramipexole 0.5 mg tablet 0.5 mg PO BEDTIME restless leg #90 10/09/22 tabs ondansetron 4 mg disintegrating 4 mg PO Q6H PRN nausea and 10/16/22 tablet vomiting #7 tabs levothyroxine 125 mcg tablet 125 mcg PO DAILY #90 tabs 11/22/22 cyclobenzaprine 10 mg tablet 10 mg PO Q8H #10 tabs 01/29/23 hydrocodone 5 mg-acetaminophen 325 1 tab PO Q6H PRN pain #10 tabs 01/29/23 mg tablet magnesium 200 mg tablet 200 mg PO DAILY #30 tabs 02/04/23 Allergies Allergy/AdvReac Type Severity Reaction Status Date / Time animal dander [ANIMAL DANDER] Allergy Intermediate ITCHY Verified 12/10/22 11:31 WATERY EYES AND SNEEZING grass pollen AdvReac Intermediate itching Verified 12/10/22 11:31 house dust AdvReac Intermediate itching Verified 12/10/22 11:31 Review of Systems Review of Systems ROS Unobtainable: All systems reviewed & are unremarkable except as noted in HPI and below Patient History Medical History Acquired hypothyroidism (~2016) Alcohol abuse Allergic rhinitis Cardiac arrest with ventricular fibrillation Cervical high risk HPV (human papillomavirus) test positive Depression (Unknown) Hypokalemia Morbid obesity Non-ischemic cardiomyopathy (~10/2022) Obstructive sleep apnea Peripheral edema (~2010) Restless leg Varicose veins of both lower extremities with complications (~2010) Surgical History History of Vasu-en-Y gastric bypass History of thyroidectomy S/P implantation of automatic cardioverter/defibrillator (AICD) (~10/2022) Status post breast lumpectomy Status post laparoscopic cholecystectomy Family History Sister Age: 59 History of breast cancer Son Drug overdose Social History marital status: household members: family occupational status: employed Smoking Status: Current some day smoker Tobacco: How many years used: 3 second hand exposure: No alcohol intake: current substance use type: does not use Type(s) of exercise: none Smoking Status: Current some day smoker tobacco type: cigarettes alcohol intake frequency: other Alcohol type: beer, wine and hard liquor Substance Use Type: marijuana Exam Initial Vital Signs Initial Vital Signs: Vital Signs Temperature 98.3 F 02/11/23 03:30 Pulse Rate 104 H 02/11/23 03:30 Respiratory Rate 16 02/11/23 03:30 Blood Pressure 136/95 H 02/11/23 03:30 Pulse Oximetry 98 02/11/23 03:30 Oxygen Delivery Method Room Air 02/11/23 03:30 Const General: cooperative and comfortable HENMT Head: normal to inspection and normocephalic Chest Other: AICD felt left upper chest Resp Effort & Inspection: normal respiratory effort Auscultation: clear to auscultation bilaterally Cardio Rate: regular rate Rhythm: abnormal rhythm GI Inspection: normal to inspection Skin General: no rashes or lesions noted Neuro General: patient alert, patient awake, patient oriented x3 and moves all extremities Procedures Cardioversion Consent Signed: Yes Indication: Atrial fibrillation Stability: Stable Number of attempts (shocks): 1 Joules used: 120 Cardiac rhythm post-cardioversion: Sinus rhythm Procedural Sedation Consent signed: Yes Indication: cardioversion ASA Class: II Mallampati Airway Classification: Class III Preparation: phototypesetting equipment monitor applied, pulse oximeter, capnometry used, supplemental O2 applied, suction/airway equipment at bedside and IV secured Fentanyl: IV Fentanyl dose (mcg): 25 IV Propofol dose (mg): 60 Intraservice time/total sedation time (min): 15 ED Sedation Level: Moderate (Concious) Patient Tolerated Procedure: Well Complications: none Scores GCS [place] coma scale eye opening: Spontaneous Marlene coma scale verbal response: Orientated Marlene coma scale motor response: Obey commands Marlene coma scale total score: 15 Course Orders Ordered: ED Orders 02/11/23 03:30 Complete Blood Count AUTO DIFF Stat Comprehensive Metabolic Panel Stat Lipase Stat Magnesium Stat NT-proBNP (BNP-Adult 18+) Stat 02/11/23 03:35 EKG-12 Lead Stat 02/11/23 04:28 RT Consult Eval and Treat Now 02/11/23 04:55 EKG-12 Lead Stat Sodium Chloride (Normal Saline 0.9%) 1,000 mls @ 125 mls/hr IV CONT SHARON Last Admin: 02/11/23 03:41 Dose: 125 mls/hr Documented By: DEBORA Discontinued Medications Fentanyl (Fentanyl 100 Mcg/2 Ml Inj) 25 mcg IV NOW ONE Stop: 02/11/23 04:29 Last Admin: 02/11/23 04:48 Dose: 25 mcg Documented By: SB Propofol (Propofol 200 Mg/20 Ml Vial) 200 mg IV NOW ONE Stop: 02/11/23 04:29 Last Admin: 02/11/23 04:50 Dose: 60 mg Documented By: SB Vital Signs Vital signs: Vital Signs - 8 hr 02/11/23 03:30 02/11/23 03:33 02/11/23 03:34 Temperature 98.3 F Pulse Rate 104 H 99 H Respiratory Rate 16 Blood Pressure 136/95 H 136/95 H Pulse Oximetry 98 86 L Oxygen Delivery Method Room Air Oxygen Flow Rate 02/11/23 03:34 02/11/23 04:00 02/11/23 04:30 Temperature Pulse Rate 97 H 87 92 H Respiratory Rate 9 L 15 Blood Pressure Pulse Oximetry 81 L 100 98 Oxygen Delivery Method Oxygen Flow Rate 02/11/23 04:50 02/11/23 04:50 02/11/23 04:52 Temperature Pulse Rate 97 H Respiratory Rate 13 Blood Pressure 135/75 110/66 Pulse Oximetry 100 Oxygen Delivery Method Nasal Cannula Oxygen Flow Rate 2 02/11/23 04:52 02/11/23 05:00 Temperature Pulse Rate 88 74 Respiratory Rate 16 18 Blood Pressure Pulse Oximetry 92 100 Oxygen Delivery Method Nasal Cannula Oxygen Flow Rate 3 MDM - Arrhythmia/Palpitations Medical Records Attestation: I reviewed the patient's medical records. Lab Data Attestation: I reviewed the patient's lab results. 02/11/23 03:30 02/11/23 03:30 Labs: Lab Results 02/11/23 02/11/23 02/11/23 Range/Units 03:30 03:30 03:30 WBC 6.1 (4.5-11.0) X10^3/uL RBC 4.72 (4.0-5.2) X10^6/uL Hgb 12.2 (12.0-16.0) g/dL Hct 37.8 (36-46) % MCV 80.0 (80-100) fL MCH 25.8 L (26-34) PG MCHC 32.3 (30-36) % RDW 19.8 H (11.6-14.8) % Plt Count 188 (150-400) X10^3/uL Neut % (Auto) 49.4 L (50-75) % Lymph % (Auto) 39.9 (25-40) % [place] % (Auto) 8.3 (3-14) % Eos % (Auto) 1.6 L (2-4) % Baso % (Auto) 0.8 (0-2) % Neut # (Auto) 3000 (5571-0690) /uL Lymph # (Auto) 2400 (5060-9205) /uL [place] # (Auto) 500 (0-900) /uL Eos # (Auto) 100 (0-450) /uL Baso # (Auto) 0 (0-100) /uL Sodium Cancelled 141 Potassium Cancelled 4.2 D Chloride Cancelled 111 H Carbon Dioxide Cancelled 25 BUN Cancelled 11 Creatinine Cancelled 0.61 Estimated GFR Cancelled > 60 BUN/Creatinine Ratio Cancelled 18.0 Glucose Cancelled 106 H Calcium Cancelled 8.7 Magnesium Cancelled 1.9 Total Bilirubin Cancelled 0.6 AST Cancelled 38 H ALT Cancelled 40 H Alkaline Phosphatase Cancelled 92 NT-Pro-B Natriuret Pep 207 H (<125) pg/mL Total Protein Cancelled 7.7 Albumin Cancelled 4.2 Globulin Cancelled 3.5 Albumin/Globulin Ratio Cancelled 1.2 Lipase Cancelled 62 Point of Care Testing Test Results Not applicable ECG Data Attestation: I personally reviewed and interpreted this ECG as follows: Interpretation: Atrial fibrillation Ventricular rate is 78 Normal axis Normal QRS No ST T wave changes Post cardioversion Sinus rhythm Ventricular rate is 72 Normal axis Normal QRS Nonspecific ST T wave changes MDM Narrative Medical decision making narrative: Patient is in AFib but is rate controlled. She is on metoprolol but no other antiarrhythmic agent. She is scheduled to start sotalol this evening and then have a follow-up tomorrow and for the 2 days after that with EKGs had her primary cable reeler's office. We are unable to interrogate her pacemaker here in the ER due to the type that it is. It is a [employer] pacemaker. She does not have a specific electrolyte abnormality. I did discuss the case with Dr. Bazan who is on-call for cardiology who recommended cardioversion. I did discuss this with the patient. She has had a cardioversion in the past. We discussed risks and benefits. We did discuss alternatives. Patient expressed understanding of all these. Patient was cardioverted to sinus rhythm without issue. She tolerated the procedure very well. She can continue with the plan of starting her sotalol this evening. She was given return precautions. She expressed understanding and agreement. Discharge Plan Departure Patient Disposition: Home Clinical Impression: Atrial fibrillation status post cardioversion Instructions: DI for Cardioversion Activity Restrictions/Additional Instructions: I recommend that you continue to take all of your medications as directed. Per cardiology recommendations this morning you can continue with the plan of starting your sotalol this evening. I recommend that you keep all of your scheduled medical appointments. Return to the emergency department for any new symptoms. Prescriptions: No Action fluticasone propionate [Allergy Relief (fluticasone)] 50 mcg/actuation spray,suspension 2 spray intranasal DAILY PRN (Reason: allergy symptoms) Qty: 16 6RF Rx Instructions: administer into each nostril albuterol sulfate 90 mcg/actuation HFA aerosol inhaler 2 puff inhalation Q6H PRN (Reason: shortness of breath or wheezing) Qty: 6.7 5RF metoprolol succinate 25 mg tablet extended release 24 hr 12.5 mg PO DAILY Qty: 90 3RF pramipexole 0.5 mg tablet 0.5 mg PO BEDTIME Qty: 90 1RF ondansetron 4 mg tablet,disintegrating 4 mg PO Q6H PRN (Reason: nausea and vomiting) Qty: 7 0RF levothyroxine 125 mcg tablet 125 mcg PO DAILY Qty: 90 3RF Patient Comments: states has not taken for a long time aspirin [Adult Low Dose Aspirin] 81 mg tablet,delayed release (DR/EC) 81 mg PO DAILY famotidine 20 mg tablet 20 mg PO BID lisinopril 2.5 mg tablet 1.25 mg PO DAILY rosuvastatin 20 mg tablet 20 mg PO DAILY bupropion HCl 75 mg tablet 75 mg PO BID Eliquis 5 mg tablet 5 mg PO BID furosemide 20 mg tablet 20 mg PO DAILY methotrexate sodium 2.5 mg tablet 20 mg PO QWEEK Rx Instructions: 4 tabs in AM, 4 tabs in PM QWEEK fluticasone propionate 220 mcg/actuation HFA aerosol inhaler 2 puff inhalation BID Qty: 12 3RF potassium chloride 8 mEq capsule, extended release 8 meq PO DAILY Qty: 90 3RF magnesium 200 mg tablet 200 mg PO DAILY Qty: 30 0RF hydrocodone-acetaminophen 5-325 mg tablet 1 tab PO Q6H PRN (Reason: pain) Qty: 10 0RF cyclobenzaprine 10 mg tablet 10 mg PO Q8H Qty: 10 0RF Referrals: Jesse Jain MD [Primary Care Provider] - Stand Alone Forms: Patient Portal/API
[2023-02-11 04:03] LABS: NT-proBNP (BNP-Adult 18+) 207 pg/mL (<125)
[2023-02-11 04:09] LABS: Alanine Aminotransferase 40 IU/L (<35); Albumin 4.2 g/dL (3.5-5.0); Albumin Globulin Ratio 1.2 (1.0-2.8); Alkaline Phosphatase 92 U/L (38-126); Bilirubin Total 0.6 mg/dL (0.2-1.3); Blood Urea Nitrogen 11 mg/dL (7-17); Calcium 8.7 mg/dL (8.4-10.2); Carbon Dioxide 25 mmol/L (22-32); Chloride 111 mmol/L (98-107); Estimated Glomerular Filt Rate > 60 mL/min (>60); Globulin 3.5 g/dL (1.7-4.1); Glucose 106 mg/dL (70-100); HEMOLYSIS 65 (0-50); Lipase 62 U/L (23-300); Magnesium 1.9 mg/dL (1.6-2.3); Sodium 141 mmol/L (137-145); Total Protein 7.7 g/dL (6.3-8.2)
[2023-02-11 04:10] LABS: Potassium 4.2 mmol/L (3.4-5.1)
[2023-02-11 04:11] LABS: Aspartate Aminotransferase 38 IU/L (14-36)
[2023-02-11] MEDS: fentaNYL 100 MCG/2 ML INJ 25 MCG IV (04:48)
[2023-02-11] MEDS: propofoL 200 MG/20 ML VIAL IV (04:50)
--- NOTE | 2023-02-11 05:40 | PC.NURSE ---
Patient tolerating drinking fluids, ambulating without difficulty. Patient preparing for discharge.
== END 2023-02-11 05:50 | disposition home or self-care (01) ==
PROVIDERS: Emergency Provider Emergency Medicine; PCP Internal Medicine
DX: I48.91 Unspecified atrial fibrillation (principal); Z79.01 Long term (current) use of anticoagulants
CPT/HCPCS: 36415; 80053; 83690; 83735; 83880; 85025; 92960; 93005; 96360; 96361; 99152; 99285; J2704; J3010

== ENCOUNTER → 2023-02-13 08:12 | Outpatient (CLI) | payer OTHER, MEDICAID, SELFPAY ==
[2021-04-28 02:35] VITALS: BMI 41.9
[2023-02-13 09:32] LABS: Free T4, Direct Thyroxine 1.26 ng/dL (0.78-2.19)
[2023-02-13 09:46] LABS: Thyroid Stimulating Hormone 0.915 uIU/mL (0.47-4.68)
== END ==
PROVIDERS: PCP Internal Medicine; Referring Provider Internal Medicine Cardiovascular Disease; Visit Provider Internal Medicine Cardiovascular Disease
DX: I42.9 Cardiomyopathy, unspecified (principal)
CPT/HCPCS: 36415; 84439; 84443

== ENCOUNTER → 2023-03-13 10:49 | Outpatient (CLI) | payer OTHER, MEDICAID, SELFPAY ==
[2021-04-28 02:35] VITALS: BMI 41.9
== END ==
PROVIDERS: PCP Internal Medicine; Visit Provider Nurse Practitioner Family
DX: R30.0 Dysuria (principal)
CPT/HCPCS: 81002; 87077; 87086; 87186

== ENCOUNTER 2023-05-04 19:39 | Emergency (ER) | payer OTHER, MEDICAID, SELFPAY ==
[2021-04-28 02:35] VITALS: BMI 41.9
[2023-05-04] VITALS (9 sets, daily range): BP systolic 93–139; BP diastolic 57–90; PULSE 60–86; RESP 14–22; TEMP 36.3; O2SAT 94–99; BMI 38.4
--- NOTE | 2023-05-04 19:47 | DI.RAD.S_ITS ---
PROCEDURE: XR CHEST 1V INDICATIONS: chest pain TECHNIQUE: One view of the chest was acquired. COMPARISON: [facility], CR, XR CHEST 1V, 02/04/2023, 14:41. FINDINGS: Surgical changes and devices: Pacemaker with intact leads. Lungs and pleura: Trace costophrenic angle blunting. Mediastinum: Mediastinal contours appear normal. Heart size is normal. Bones and chest wall: No suspicious bony lesions. Overlying soft tissues appear unremarkable. IMPRESSION: Trace costophrenic angle blunting possibly related to minimal effusions versus scarring. Dictated by: Sandie Crystal M.D. on 05/04/2023 at 20:10 Approved by: Sandie Crystal M.D. on 05/04/2023 at 20:11
[2023-05-04 20:06] LABS: Add Manual Diff / Slide Review NO; Basophils Absolute Auto 0 /uL (0-100); Basophils Percent Auto 0.6 % (0-2); Eosinophils Absolute Auto 100 /uL (0-450); Eosinophils Percent Auto 1.9 % (2-4); Hematocrit 36.1 % (36-46); Hemoglobin 11.7 g/dL (12.0-16.0); Lymphocytes Absolute Auto 2000 /uL (1100-4500); Lymphocytes Percent Auto 37.7 % (25-40); Mean Corpuscular HGB Conc 32.5 % (30-36); Mean Corpuscular Hemoglobin 26.2 PG (26-34); Mean Corpuscular Volume 80.5 fL (80-100); Monocytes Absolute Auto 400 /uL (0-900); Monocytes Percent Auto 6.9 % (3-14); Neutrophils Absolute Auto 2800 /uL (1500-7000); Neutrophils Percent Auto 52.9 % (50-75); Platelet Count 183 X10^3/uL (150-400); Red Blood Cell Count 4.49 X10^6/uL (4.0-5.2); Red Cell Distribution Width 21.3 % (11.6-14.8); White Blood Cell Count 5.2 X10^3/uL (4.5-11.0)
[2023-05-04 20:10] LABS: INR 1.1 (0.9-1.3); Prothrombin Time 13.1 SECONDS (10.1-12.7)
[2023-05-04 20:13] LABS: PTT Partial Thromboplastin Tim 31 SECONDS (26-36)
[2023-05-04] MEDS: ASPIRIN 81 MG CHEW TAB 324 MG PO (20:15)
[2023-05-04 20:16] LABS: Alanine Aminotransferase 36 IU/L (<35); Albumin 4.1 g/dL (3.5-5.0); Albumin Globulin Ratio 1.3 (1.0-2.8); Alkaline Phosphatase 96 U/L (38-126); Aspartate Aminotransferase 29 IU/L (14-36); BUN Creatinine Ratio 18.7 (6-22); Bilirubin Total 0.5 mg/dL (0.2-1.3); Blood Urea Nitrogen 14 mg/dL (7-17); Calcium 8.5 mg/dL (8.4-10.2); Carbon Dioxide 24 mmol/L (22-32); Chloride 106 mmol/L (98-107); Creatine Kinase 23 U/L (30-135); Estimated Glomerular Filt Rate > 60 mL/min (>60); Globulin 3.1 g/dL (1.7-4.1); Glucose 239 mg/dL (70-100); HEMOLYSIS < 15 (0-50); Lipase 95 U/L (23-300); Magnesium 1.5 mg/dL (1.6-2.3); Potassium 3.7 mmol/L (3.4-5.1); Sodium 137 mmol/L (137-145); Total Protein 7.2 g/dL (6.3-8.2)
--- NOTE | 2023-05-04 20:22 | PC.NURSE ---
Spoke with pt's interrogation device, Sharad Miller. Sharad currently awaiting bluetooth transmission from patient at this time. Pt submitted through phone. Sharad states if does not receive transmission shortly, he will come to ED to interrogate pt's device at the bedside. Sharad can be reached at [phone].
[2023-05-04 20:27] LABS: Troponin I < 0.012 ng/mL (0.01-0.034)
--- NOTE | 2023-05-04 20:39 | PC.NURSE ---
Per amari Orourke rep, pt with last reported event 04/06/2023 with <10 seconds nonsustained vtach. Awaiting official fax report.
[2023-05-04 20:46] LABS: Anisocytosis 1+
[2023-05-04 20:47] LABS: Schistocytes 1+
--- NOTE | 2023-05-04 20:49 | ED_ITS ---
HPI - Dizziness General Chief Complaint: Dizziness Stated Complaint: has CLAUDIA heart racing dizzy weak Time Seen by Provider: 05/04/23 19:55 Source: patient Mode of arrival: Ambulatory History of Present Illness HPI Narrative: 57-year-old female smoker with history of VFib arrest and ICD placement in October, AFib, nonischemic cardiomyopathy presents with a chief complaint of an episode of palpitations and dizziness prior to arrival. She states she had been in her normal state of health until this evening when she felt a sudden onset of racing heart with associated dizziness and lightheadedness. Given her complex medical history she became concerned and presented to the emergency department for evaluation. She is no longer having palpitations in his no longer dizzy or lightheaded. She has had some wheezing and a hacking cough. She denies fever or chills. She is had no chest pain, nausea, vomiting or diarrhea. She denies any concerned that her AICD fired. She is been taking her medications as directed. Related Data Home Medications Medication Instructions Recorded Confirmed methotrexate sodium 2.5 mg tablet 20 mg PO QWEEK 06/30/22 03/13/23 apixaban 5 mg tablet (Eliquis) 5 mg PO BID 10/19/22 03/13/23 aspirin 81 mg tablet,delayed 81 mg PO DAILY 10/19/22 03/13/23 release (Adult Low Dose Aspirin) bupropion HCl 75 mg tablet 75 mg PO BID 10/19/22 03/13/23 famotidine 20 mg tablet 20 mg PO BID 10/19/22 03/13/23 furosemide 20 mg tablet 20 mg PO DAILY 10/19/22 03/13/23 lisinopril 2.5 mg tablet 1.25 mg PO DAILY 10/19/22 03/13/23 rosuvastatin 20 mg tablet 20 mg PO DAILY 10/19/22 03/13/23 Previous Rx's Medication Instructions Recorded fluticasone propionate 50 2 spray intranasal DAILY PRN 04/10/22 mcg/actuation nasal allergy symptoms #16 grams spray,suspension (Allergy Relief (fluticasone)) albuterol sulfate 90 mcg/actuation 2 puff inhalation Q6H PRN 08/07/22 aerosol inhaler shortness of breath or wheezing #6.7 grams metoprolol succinate 25 mg 12.5 mg PO DAILY #90 tabs 08/07/22 tablet,extended release 24 hr potassium chloride 8 mEq 8 meq PO DAILY #90 caps 09/25/22 capsule,extended release ondansetron 4 mg disintegrating 4 mg PO Q6H PRN nausea and 10/16/22 tablet vomiting #7 tabs levothyroxine 125 mcg tablet 125 mcg PO DAILY #90 tabs 11/22/22 cyclobenzaprine 10 mg tablet 10 mg PO Q8H #10 tabs 01/29/23 hydrocodone 5 mg-acetaminophen 325 1 tab PO Q6H PRN pain #10 tabs 01/29/23 mg tablet magnesium 200 mg tablet 200 mg PO DAILY #30 tabs 02/04/23 fluticasone propionate 220 2 puff inhalation BID #12 grams 02/12/23 mcg/actuation HFA aerosol inhaler nitrofurantoin 100 mg PO BID #10 caps 03/15/23 monohydrate/macrocrystals 100 mg capsule pramipexole 0.5 mg tablet 0.5 mg PO BEDTIME restless leg #90 04/16/23 tabs doxycycline hyclate 100 mg tablet 100 mg PO BID #20 tabs 05/04/23 Allergies Allergy/AdvReac Type Severity Reaction Status Date / Time animal dander [ANIMAL DANDER] Allergy Intermediate ITCHY Verified 05/04/23 19:41 WATERY EYES AND SNEEZING grass pollen AdvReac Intermediate itching Verified 05/04/23 19:41 house dust AdvReac Intermediate itching Verified 05/04/23 19:41 Review of Systems Review of Systems Narrative: GENERAL: Denies chills, fatigue, malaise, fever, sweats. HEENT: Denies sinus pain, ear pain, sore throat, difficulty swallowing, dizziness. RESPIRATORY: See HPI CARDIOVASCULAR: See HPI GASTROINTESTINAL: Denies nausea, vomiting, abdominal pain, diarrhea, constipation, melena. : Denies dysuria, frequency, incontinence, hematuria, urinary retention. MUSCULOSKELETAL: denies weakness, joint pain, or bony pain SKIN: Denies rash, skin lesions, or other NEUROLOGIC: Denies weakness, headache, numbness, change in speech, confusion, seizures, incoordination. PSYCHIATRIC: No concerning psychosocial issues. 12 point review of systems is negative except for those stated above Patient History Medical History Acquired hypothyroidism (~2017) Alcohol abuse Allergic rhinitis Cardiac arrest with ventricular fibrillation Cervical high risk HPV (human papillomavirus) test positive Depression (Unknown) Hypokalemia Morbid obesity Non-ischemic cardiomyopathy (~10/2022) Obstructive sleep apnea Peripheral edema (~2010) Restless leg Varicose veins of both lower extremities with complications (~2010) Surgical History History of Vasu-en-Y gastric bypass History of thyroidectomy S/P implantation of automatic cardioverter/defibrillator (AICD) (~10/2022) Status post breast lumpectomy Status post laparoscopic cholecystectomy Family History Sister Age: 59 History of breast cancer Son Drug overdose Social History marital status: household members: family occupational status: employed Smoking Status: Current some day smoker Tobacco: How many years used: 3 second hand exposure: No alcohol intake: current substance use type: does not use Type(s) of exercise: none Smoking Status: Current some day smoker tobacco type: cigarettes alcohol intake frequency: other Alcohol type: beer, wine and hard liquor Substance Use Type: marijuana Exam Narrative Exam Narrative: GENERAL: [57] year old patient appears stated age. Well-developed patient, in no obvious distress. She does have occasional hacking cough which she reports sometimes produces sputum HEAD: Atraumatic. Normocephalic. EYES: Pupils equal round and reactive. Extraocular motions intact. No scleral icterus. No injection or drainage. ENT: Nose without bleeding, purulent drainage. Throat without erythema, tonsillar hypertrophy or exudate. Airway patent. NECK: Trachea midline. Non tender CARDIOVASCULAR: Regular rate and rhythm without murmurs, gallops, or rubs. RESPIRATORY: Clear to auscultation. Breath sounds equal bilaterally. No wheezes, rales, or rhonchi. GASTROINTESTINAL: Abdomen soft, non-tender, nondistended. EXTREMITIES: No edema or joint tenderness. BACK: Nontender without deformity or crepitance. No flank tenderness. NEURO: AOx3. SKIN: No rash or erythema of visible areas Initial Vital Signs Initial Vital Signs: Vital Signs Temperature 97.3 F L 05/04/23 19:41 Pulse Rate 86 06/30/23 19:41 Respiratory Rate 18 05/04/23 19:41 Blood Pressure 139/65 05/04/23 19:41 Pulse Oximetry 99 05/04/23 19:41 Oxygen Delivery Method Room Air 05/04/23 19:41 Course Orders Ordered: ED Orders 05/04/23 19:47 XR chest 1V Stat EKG-12 Lead Stat 05/04/23 19:56 Complete Blood Count AUTO DIFF Stat Comprehensive Metabolic Panel Stat Lipase Stat Magnesium Stat PTT Partial Thromboplastin Jesu Stat Prothrombin Time INR Stat Troponin & CK Cardiac Panel Stat Discontinued Medications Albuterol/Ipratropium (Albuterol/Ipratropium 3 Ml Ampul) 3 ml INH NOW ONE Stop: 05/04/23 22:21 Last Admin: 05/04/23 22:30 Dose: 3 ml Documented By: ALLYSON Aspirin (Aspirin 81 Mg Chew Tab) 324 mg PO NOW ONE Stop: 05/04/23 19:47 Last Admin: 05/04/23 20:15 Dose: 324 mg Documented By: Consultations Consultation #1: Wesley BENAVIDES Interrogated by patient and information sent. Upon review last episode of elevated rate was 04/06/23 Vital Signs Vital signs: Vital Signs - 8 hr 05/04/23 19:41 05/04/23 20:00 05/04/23 20:00 Temperature 97.3 F L Pulse Rate 86 72 Respiratory Rate 18 22 Blood Pressure 139/65 119/90 Pulse Oximetry 99 98 Oxygen Delivery Method Room Air 05/04/23 20:30 05/04/23 20:30 05/04/23 21:00 Temperature Pulse Rate 66 Respiratory Rate 16 Blood Pressure 95/61 93/57 L Pulse Oximetry 95 Oxygen Delivery Method 05/04/23 21:00 05/04/23 21:30 05/04/23 21:38 Temperature Pulse Rate 63 60 60 Respiratory Rate 16 Blood Pressure Pulse Oximetry 94 96 96 Oxygen Delivery Method 05/04/23 21:39 05/04/23 21:39 05/04/23 22:00 Temperature Pulse Rate 60 Respiratory Rate 14 Blood Pressure 100/61 107/66 Pulse Oximetry 97 Oxygen Delivery Method 05/04/23 22:00 05/04/23 22:30 05/04/23 22:30 Temperature Pulse Rate 60 60 Respiratory Rate 14 18 Blood Pressure 109/64 Pulse Oximetry 96 97 Oxygen Delivery Method [facility] - Dizziness Lab Data 05/04/23 19:56 05/04/23 19:56 Labs: Lab Results 05/04/23 05/04/23 05/04/23 Range/Units 19:56 19:56 19:56 WBC 5.2 (4.5-11.0) X10^3/uL RBC 4.49 (4.0-5.2) X10^6/uL Hgb 11.7 L (12.0-16.0) g/dL Hct 36.1 (36-46) % MCV 80.5 (80-100) fL MCH 26.2 (26-34) PG MCHC 32.5 (30-36) % RDW 21.3 H (11.6-14.8) % Plt Count 183 (150-400) X10^3/uL Neut % (Auto) 52.9 (50-75) % Lymph % (Auto) 37.7 (25-40) % [place] % (Auto) 6.9 (3-14) % Eos % (Auto) 1.9 L (2-4) % Baso % (Auto) 0.6 (0-2) % Neut # (Auto) 2800 (6070-0890) /uL Lymph # (Auto) 2000 (4094-9301) /uL [place] # (Auto) 400 (0-900) /uL Eos # (Auto) 100 (0-450) /uL Baso # (Auto) 0 (0-100) /uL RBC Morphology See below Anisocytosis 1+ H Schistocytes 1+ H PT 13.1 H (10.1-12.7) SECONDS INR 1.1 (0.9-1.3) APTT 31 (26-36) SECONDS Sodium 137 (137-145) mmol/L Potassium 3.7 (3.4-5.1) mmol/L Chloride 106 (98-107) mmol/L Carbon Dioxide 24 (22-32) mmol/L BUN 14 (7-17) mg/dL Creatinine 0.75 (0.52-1.04) mg/dL Estimated GFR > 60 (>60) mL/min BUN/Creatinine Ratio 18.7 (6-22) Glucose 239 H (70-100) mg/dL Calcium 8.5 (8.4-10.2) mg/dL Magnesium 1.5 L (1.6-2.3) mg/dL Total Bilirubin 0.5 (0.2-1.3) mg/dL AST 29 (14-36) IU/L ALT 36 H (<35) IU/L Alkaline Phosphatase 96 (38-126) U/L Total Creatine Kinase 23 L (30-135) U/L Troponin I < 0.012 (0.01-0.034) ng/mL Total Protein 7.2 (6.3-8.2) g/dL Albumin 4.1 (3.5-5.0) g/dL Globulin 3.1 (1.7-4.1) g/dL Albumin/Globulin Ratio 1.3 (1.0-2.8) Lipase 95 (23-300) U/L MDM Narrative Medical decision making narrative: [57] year old patient presents with an episode of palpitations prior to her arrival also some wheezing and harsh cough with occasional sputum production Multiple etiologies for patient's symptoms considered including, but not limited to: [Electrolyte abnormality, arrhythmia versus other] Prior Charts reviewed in our EMR Primary Historian: patient Labs reviewed and interpreted by myself: No leukocytosis or left shift. Electrolytes and troponin and normal with a Imaging reviewed: Chest x-ray without infiltrate Patient's symptoms improved over duration of stay with above-stated therapies. She is greatly improved after nebulizer. Given her history of smoking and sputum production she is treated for atypical pneumonia. She has no hypoxemia or increased work of breathing. Device is interrogated and no episodes of concerning tachycardia. Patient is stable and at baseline. She is appropriate for discharge. Findings and discharge diagnosis discussed with patient/family followed by verbalization of understanding Return precautions discussed with patient/family whom verbalize understanding of diagnosis and plan Discharge Plan Departure Patient Disposition: Home Clinical Impression: Heart palpitations, Atypical pneumonia Instructions: DI for Palpitations, DI for Atypical Pneumonia Activity Restrictions/Additional Instructions: *You have been diagnosed with [palpitations and atypical pneumonia. ] *What to do: *Please continue to take your regular medications as directed. [ x] New medication prescriptions sent to your pharmacy: [[facility] ] [ ] New medication written as a paper prescription [ ] No new medications given *Please follow up with your primary care provider in 2-3 days, call for an appointment. Let them know you were seen in the Emergency Department and that we ask that you be seen in follow up. We will electronically transmit a record of today's note if your PCP is in our system *If you do not have a primary care provider please contact the [facility] Resource line at [phone]. They will ask some questions about your medical history and help get you set up with a doctor in the community. *Return to Emergency Department if you should have any new, worsening or concerning symptoms, such as [fever greater than 101 F, shaking chills, worsening pain, persistent vomiting or other bothersome symptoms] Prescriptions: New doxycycline hyclate 100 mg tablet 100 mg PO BID Qty: 20 0RF No Action fluticasone propionate [Allergy Relief (fluticasone)] 50 mcg/actuation spray,suspension 2 spray intranasal DAILY PRN (Reason: allergy symptoms) Qty: 16 6RF Rx Instructions: administer into each nostril albuterol sulfate 90 mcg/actuation HFA aerosol inhaler 2 puff inhalation Q6H PRN (Reason: shortness of breath or wheezing) Qty: 6.7 5RF metoprolol succinate 25 mg tablet extended release 24 hr 12.5 mg PO DAILY Qty: 90 3RF ondansetron 4 mg tablet,disintegrating 4 mg PO Q6H PRN (Reason: nausea and vomiting) Qty: 7 0RF levothyroxine 125 mcg tablet 125 mcg PO DAILY Qty: 90 3RF Patient Comments: states has not taken for a long time fluticasone propionate 220 mcg/actuation HFA aerosol inhaler 2 puff inhalation BID Qty: 12 3RF nitrofurantoin monohyd/m-cryst 100 mg capsule 100 mg PO BID Qty: 10 0RF Rx Instructions: must administer with a meal/food pramipexole 0.5 mg tablet 0.5 mg PO BEDTIME Qty: 90 1RF aspirin [Adult Low Dose Aspirin] 81 mg tablet,delayed release (DR/EC) 81 mg PO DAILY famotidine 20 mg tablet 20 mg PO BID lisinopril 2.5 mg tablet 1.25 mg PO DAILY rosuvastatin 20 mg tablet 20 mg PO DAILY bupropion HCl 75 mg tablet 75 mg PO BID Eliquis 5 mg tablet 5 mg PO BID furosemide 20 mg tablet 20 mg PO DAILY methotrexate sodium 2.5 mg tablet 20 mg PO QWEEK Rx Instructions: 4 tabs in AM, 4 tabs in PM QWEEK potassium chloride 8 mEq capsule, extended release 8 meq PO DAILY Qty: 90 3RF magnesium 200 mg tablet 200 mg PO DAILY Qty: 30 0RF hydrocodone-acetaminophen 5-325 mg tablet 1 tab PO Q6H PRN (Reason: pain) Qty: 10 0RF cyclobenzaprine 10 mg tablet 10 mg PO Q8H Qty: 10 0RF Referrals: Jesse Jain MD [Primary Care Provider] - Stand Alone Forms: Patient Portal/API
[2023-05-04] MEDS: ALBUTEROL/IPRATROPIUM 3 ML AMPUL INH (22:30)
== END 2023-05-04 23:02 | disposition home or self-care (01) ==
PROVIDERS: Emergency Provider Emergency Medicine; PCP Internal Medicine
DX: R00.2 Palpitations (principal); J18.9 Pneumonia, unspecified organism; R42 Dizziness and giddiness
CPT/HCPCS: 36415; 71045; 80053; 82550; 83690; 83735; 84484; 85025; 85610; 85730; 93005; 93010; 99284

== ENCOUNTER → 2023-06-03 11:27 | Outpatient (CLI) | payer OTHER, MEDICAID, SELFPAY ==
[2021-04-28 02:35] VITALS: BMI 41.9
== END ==
PROVIDERS: PCP Internal Medicine; Visit Provider Nurse Practitioner Family
DX: R35.0 Frequency of micturition (principal)
CPT/HCPCS: 81002; 87077; 87086; 87186

== ENCOUNTER 2023-10-26 11:44 | Emergency (ER) | payer OTHER, SELFPAY ==
[2021-04-28 02:35] VITALS: BMI 41.9
[2023-10-26] VITALS (14 sets, daily range): BP systolic 122–161; BP diastolic 73–82; PULSE 59–67; RESP 13–20; TEMP 36.8–36.9; O2SAT 96–100; BMI 36.6
--- NOTE | 2023-10-26 12:28 | DI.RAD.S_ITS ---
PROCEDURE: XR CHEST 1V INDICATIONS: chest pain TECHNIQUE: One view of the chest was acquired. COMPARISON: [facility], CR, XR CHEST 1V, 02/04/2023, 14:41. [facility], CR, XR CHEST 1V, 05/04/2023, 19:50. FINDINGS: Surgical changes and devices: Left pacemaker with right atrial lead and right ventricular AICD lead. Lungs and pleura: Lungs are clear. No pleural effusions or pneumothorax. Mediastinum: Mediastinal contours appear normal. Heart size is within normal limits. Bones and chest wall: No suspicious bony lesions. Overlying soft tissues appear unremarkable. IMPRESSION: No acute cardiopulmonary abnormality is seen. Dictated by: Jono Herrera M.D. on 10/26/2023 at 12:50 Approved by: Jono Herrera M.D. on 10/26/2023 at 12:52
--- NOTE | 2023-10-26 12:30 | PC.NURSE ---
Pt states she was at work and experienced double and triple vision for approximately 40 seconds. After this the symptoms started to diminish over a few minutes, and patient has not had double vision since. Pt complains of dizziness at rest and a cough the past 5 days with a negative covid test performed at home. Pt has history of resuscitation in our ER 1 year ago. She was transferred to [facility] and had a defibrillator/pacemaker placed.
[2023-10-26 13:47] LABS: Alanine Aminotransferase 19 IU/L (<35); Albumin 4.1 g/dL (3.5-5.0); Albumin Globulin Ratio 1.3 (1.0-2.8); Alkaline Phosphatase 95 U/L (38-126); Aspartate Aminotransferase 23 IU/L (14-36); BUN Creatinine Ratio 14.8 (6-22); Bilirubin Total 0.5 mg/dL (0.2-1.3); Blood Urea Nitrogen 8 mg/dL (7-17); Calcium 9.1 mg/dL (8.4-10.2); Carbon Dioxide 26 mmol/L (22-32); Chloride 106 mmol/L (98-107); Creatine Kinase 27 U/L (30-135); Estimated Glomerular Filt Rate > 60 mL/min (>60); Globulin 3.1 g/dL (1.7-4.1); Glucose 104 mg/dL (70-100); HEMOLYSIS 19 (0-50); Lipase 77 U/L (23-300); Potassium 4.2 mmol/L (3.4-5.1); Sodium 138 mmol/L (137-145); Total Protein 7.2 g/dL (6.3-8.2)
[2023-10-26 13:51] LABS: Influenza A - CEPHEID Flu A NEGATIVE (NEGATIVE); Influenza B - CEPHEID Flu B NEGATIVE (NEGATIVE); Respiratory Syncytial Virus Negative (Negative)
[2023-10-26 13:58] LABS: NT-proBNP (BNP-Adult 18+) 190 pg/mL (<125); Troponin I < 0.012 ng/mL (0.01-0.034)
[2023-10-26 14:01] LABS: COVID-19 CEPHEID 4-PLEX PCR Negative (Negative)
[2023-10-26 14:03] LABS: Add Manual Diff / Slide Review NO; Basophils Absolute Auto 0 /uL (0-100); Basophils Percent Auto 0.8 % (0-2); Eosinophils Absolute Auto 0 /uL (0-450); Eosinophils Percent Auto 0.6 % (2-4); Hematocrit 38.1 % (36-46); Hemoglobin 12.5 g/dL (12.0-16.0); Lymphocytes Absolute Auto 1600 /uL (1100-4500); Lymphocytes Percent Auto 32.5 % (25-40); Mean Corpuscular HGB Conc 32.7 % (30-36); Mean Corpuscular Hemoglobin 26.8 PG (26-34); Mean Corpuscular Volume 81.9 fL (80-100); Monocytes Absolute Auto 300 /uL (0-900); Neutrophils Absolute Auto 3000 /uL (1500-7000); Neutrophils Percent Auto 60.1 % (50-75); Platelet Count 162 X10^3/uL (150-400); Red Blood Cell Count 4.65 X10^6/uL (4.0-5.2); Red Cell Distribution Width 22.2 % (11.6-14.8); White Blood Cell Count 4.9 X10^3/uL (4.5-11.0)
[2023-10-26 14:19] LABS: Anisocytosis 2+; Macrocytosis 1+; Microcytosis 1+; Platelet Estimate Adequate on smear
--- NOTE | 2023-10-26 14:51 | ED_ITS ---
HPI - Dizziness General Chief Complaint: Dizziness Stated Complaint: vision blurred/seeing triple Time Seen by Provider: 10/26/23 12:28 Source: patient Mode of arrival: Ambulatory Limitations: no limitations History of Present Illness HPI Narrative: 57-year-old female smoker with history of VFib arrest and ICD placement in October, atrial fibrillation, nonischemic cardiomyopathy who is currently off her Eliquis but on all of her other medications. Patient presents with complaint of about 45 seconds of triple vision earlier today. Patient states that lasted 30-45 seconds. She states it seemed to be both eyes although she did not cover up her left or right eye during the event. It then resolved with no additional issues. No headaches, no numbness, tingling or weakness, no difficulty with speech no facial droop. Patient states she is been walking and moving normally otherwise. She has had a recent cough and congestion. Denies any chest pain or shortness of breath. Denies any nausea or vomiting. No other GI or urinary symptoms. No dizziness or vertigo symptoms. Patient states she has not been able to afford her Eliquis, she is still on her sotalol, methotrexate, folic acid, metoprolol, pramipexole, potassium, spironolactone, Lasix and levothyroxine as well as her inhalers. She states no other medication adjustments. She had follow up with Cardiology with Dr. Dejesus in August of 2023. No other new surgical interventions. Does smoke daily, occasional alcohol, no recreational drugs. PCP is Dr. Jain, Dr. Dejesus is her dental floss packer. Related Data Home Medications Medication Instructions Recorded Confirmed methotrexate sodium 2.5 mg tablet 20 mg PO QWEEK 06/30/22 03/13/23 apixaban 5 mg tablet (Eliquis) 5 mg PO BID 10/19/22 03/13/23 aspirin 81 mg tablet,delayed 81 mg PO DAILY 10/19/22 03/13/23 release (Adult Low Dose Aspirin) bupropion HCl 75 mg tablet 75 mg PO BID 10/19/22 03/13/23 famotidine 20 mg tablet 20 mg PO BID 10/19/22 03/13/23 furosemide 20 mg tablet 20 mg PO DAILY 10/19/22 03/13/23 lisinopril 2.5 mg tablet 1.25 mg PO DAILY 10/19/22 03/13/23 rosuvastatin 20 mg tablet 20 mg PO DAILY 10/19/22 03/13/23 Previous Rx's Medication Instructions Recorded fluticasone propionate 50 2 spray intranasal DAILY PRN 04/10/22 mcg/actuation nasal allergy symptoms #16 grams spray,suspension (Allergy Relief (fluticasone)) albuterol sulfate 90 mcg/actuation 2 puff inhalation Q6H PRN 08/07/22 aerosol inhaler shortness of breath or wheezing #6.7 grams potassium chloride 8 mEq 8 meq PO DAILY #90 caps 09/25/22 capsule,extended release ondansetron 4 mg disintegrating 4 mg PO Q6H PRN nausea and 10/16/22 tablet vomiting #7 tabs levothyroxine 125 mcg tablet 125 mcg PO DAILY #90 tabs 11/22/22 cyclobenzaprine 10 mg tablet 10 mg PO Q8H #10 tabs 01/29/23 hydrocodone 5 mg-acetaminophen 325 1 tab PO Q6H PRN pain #10 tabs 01/29/23 mg tablet magnesium 200 mg tablet 200 mg PO DAILY #30 tabs 02/04/23 nitrofurantoin 100 mg PO BID #10 caps 03/15/23 monohydrate/macrocrystals 100 mg capsule doxycycline hyclate 100 mg tablet 100 mg PO BID #20 tabs 05/04/23 phenazopyridine 200 mg tablet 200 mg PO TID 6 doses #6 tabs 06/03/23 (Pyridium) fluticasone propionate 220 2 puff inhalation BID #12 grams 06/19/23 mcg/actuation HFA aerosol inhaler metoprolol succinate 25 mg 12.5 mg (1/2 x 25 mg) PO DAILY #45 08/20/23 tablet,extended release 24 hr tabs pramipexole 0.5 mg tablet 0.5 mg PO BEDTIME restless leg #90 09/24/23 tabs dabigatran etexilate 150 mg 150 mg PO BID #60 caps 10/26/23 capsule (Pradaxa) Allergies Allergy/AdvReac Type Severity Reaction Status Date / Time animal dander [ANIMAL DANDER] Allergy Intermediate ITCHY Verified 05/04/23 19:41 WATERY EYES AND SNEEZING grass pollen AdvReac Intermediate itching Verified 05/04/23 19:41 house dust AdvReac Intermediate itching Verified 05/04/23 19:41 Review of Systems Review of Systems ROS Unobtainable: All systems reviewed & are unremarkable except as noted in HPI and below Patient History Medical History Morbid obesity Non-ischemic cardiomyopathy (~10/2022) Hypokalemia Cardiac arrest with ventricular fibrillation Cervical high risk HPV (human papillomavirus) test positive Alcohol abuse Allergic rhinitis Varicose veins of both lower extremities with complications (~2010) Acquired hypothyroidism (~2016) Depression (Unknown) Peripheral edema (~2010) Obstructive sleep apnea Restless leg Surgical History S/P implantation of automatic cardioverter/defibrillator (AICD) (~10/2022) History of Vasu-en-Y gastric bypass History of thyroidectomy Status post breast lumpectomy Status post laparoscopic cholecystectomy Family History Sister Age: 60 History of breast cancer Son Drug overdose Social History marital status: household members: family occupational status: employed Smoking Status: Current every day smoker Tobacco: How many years used: 3 second hand exposure: No alcohol intake: current substance use type: does not use Type(s) of exercise: none Smoking Status: Current every day smoker tobacco type: cigarettes alcohol intake frequency: other Alcohol type: beer, wine and hard liquor Substance Use Type: does not use Exam Narrative Exam Narrative: GEN: well nourished, well appearing female, alert and oriented x 3, patient appears to be in mild distress. HEENT: Atraumatic, pupils are equal round reactive to light, extraocular movements are intact, nares are clear, TMs are clear with no fluid, there is no conjunctival pallor. Throat is clear without any exudates, erythema, tonsillar enlargement or uvular deviation, no facial droop. HEART: Regular rate and rhythm without murmur, clicks, rubs. Pulses are equal in upper and lower extremities LUNGS:Lungs clear to auscultation, no wheezes, rales, crackles, chest moves symmetrically ABD:bowel sounds normal, soft, non-tender, no guarding, rebound, rigidity, no masses noted, no hepatosplenomegaly :No CVA tenderness MSCL: Non-tender, no muscle atrophy, muscles strength 5/5 upper and lower extremities, full range of motion, normal gait NEURO:CN 2-12 intact, sensation normal, finger nose finger test normal, heel rodas test normal. Initial Vital Signs Initial Vital Signs: Vital Signs Temperature 98.4 F 10/26/23 11:56 Pulse Rate 60 10/26/23 11:56 Respiratory Rate 18 10/26/23 11:56 Blood Pressure 133/78 10/26/23 11:56 Pulse Oximetry 100 10/26/23 11:56 Oxygen Delivery Method Room Air 10/26/23 11:56 Scores NIH Stroke Scale Level of Conciousness: Alert, keenly responsive Ask month/age: Answers both questions correctly. Open/close eyes, close hand: Performs both tasks correctly Best gaze horizontal: Normal Visual zaragoza: No visual loss Facial palsy: Normal symetrical movement Left arm drift: No drift for full 10 sec Right arm drift: No drift for full 10 sec Left leg drift: No drift for full 5 sec Right leg drift: No drift for full 5 sec Limb ataxia: Absent Sensory on face/arms/legs: Normal, no sensory loss Best language: No aphasia, normal Dysarthria: Normal Extinction or inattention: No abnormality Total NIH Stroke scale score: 0 Course Orders Ordered: ED Orders 10/26/23 12:09 BNP [NT-proBNP (BNP-Adult 18+)] Stat Complete Blood Count AUTO DIFF Stat Comprehensive Metabolic Panel Stat Lipase Stat Troponin & CK Cardiac Panel Stat 10/26/23 12:28 XR chest 1V Stat 10/26/23 13:05 Covid-19 + FLU A/B + RSV - PCR Stat 10/26/23 13:11 EKG-12 Lead Stat 10/26/23 15:11 CT angio head and neck Stat CT head/brain wo con Stat Vital Signs Vital signs: Vital Signs - 8 hr 10/26/23 11:56 10/26/23 12:30 10/26/23 12:33 Temperature 98.4 F Pulse Rate 60 59 L Respiratory Rate 18 16 Blood Pressure 133/78 123/82 Pulse Oximetry 100 98 Oxygen Delivery Method Room Air 10/26/23 12:33 10/26/23 13:03 10/26/23 13:04 Temperature Pulse Rate 60 67 Respiratory Rate 15 18 Blood Pressure 161/81 H Pulse Oximetry 99 97 Oxygen Delivery Method Room Air 10/26/23 13:04 10/26/23 13:30 10/26/23 13:30 Temperature Pulse Rate 60 60 Respiratory Rate 16 16 Blood Pressure 135/79 Pulse Oximetry 97 99 Oxygen Delivery Method Room Air 10/26/23 14:00 10/26/23 14:00 10/26/23 14:30 Temperature Pulse Rate 60 60 Respiratory Rate 13 20 Blood Pressure 133/80 Pulse Oximetry 96 97 Oxygen Delivery Method Room Air Room Air 10/26/23 14:30 10/26/23 15:00 10/26/23 15:00 Temperature Pulse Rate 60 Respiratory Rate Blood Pressure 122/81 132/73 Pulse Oximetry 98 Oxygen Delivery Method Room Air 10/26/23 15:30 10/26/23 16:00 10/26/23 16:30 Temperature Pulse Rate 60 63 60 Respiratory Rate Blood Pressure Pulse Oximetry 100 99 98 Oxygen Delivery Method Room Air 10/26/23 17:00 10/26/23 17:17 10/26/23 17:17 Temperature 98.2 F Pulse Rate 60 Respiratory Rate 20 Blood Pressure 140/78 Pulse Oximetry 99 99 Oxygen Delivery Method MDM - Dizziness Lab Data 10/26/23 12:09 10/26/23 12:09 Labs: Lab Results 10/26/23 10/26/23 Range/Units 12:09 13:05 WBC 4.9 (4.5-11.0) X10^3/uL RBC 4.65 (4.0-5.2) X10^6/uL Hgb 12.5 (12.0-16.0) g/dL Hct 38.1 (36-46) % MCV 81.9 (80-100) fL MCH 26.8 (26-34) PG MCHC 32.7 (30-36) % RDW 22.2 H (11.6-14.8) % Plt Count 162 (150-400) X10^3/uL Neut % (Auto) 60.1 (50-75) % Lymph % (Auto) 32.5 (25-40) % Dubois % (Auto) 6.0 (3-14) % Eos % (Auto) 0.6 L (2-4) % Baso % (Auto) 0.8 (0-2) % Neut # (Auto) 3000 (3194-7791) /uL Lymph # (Auto) 1600 (2511-0480) /uL Dubois # (Auto) 300 (0-900) /uL Eos # (Auto) 0 (0-450) /uL Baso # (Auto) 0 (0-100) /uL Platelet Estimate Adequate on smear RBC Morphology See below Anisocytosis 2+ H Microcytosis 1+ H Macrocytosis 1+ H Sodium 138 (137-145) mmol/L Potassium 4.2 (3.4-5.1) mmol/L Chloride 106 (98-107) mmol/L Carbon Dioxide 26 (22-32) mmol/L BUN 8 (7-17) mg/dL Creatinine 0.54 (0.52-1.04) mg/dL Estimated GFR > 60 (>60) mL/min BUN/Creatinine Ratio 14.8 (6-22) Glucose 104 H (70-100) mg/dL Calcium 9.1 (8.4-10.2) mg/dL Total Bilirubin 0.5 (0.2-1.3) mg/dL AST 23 (14-36) IU/L ALT 19 (<35) IU/L Alkaline Phosphatase 95 (38-126) U/L Total Creatine Kinase 27 L (30-135) U/L Troponin I < 0.012 (0.01-0.034) ng/mL NT-Pro-B Natriuret Pep 190 H (<125) pg/mL Total Protein 7.2 (6.3-8.2) g/dL Albumin 4.1 (3.5-5.0) g/dL Globulin 3.1 (1.7-4.1) g/dL Albumin/Globulin Ratio 1.3 (1.0-2.8) Lipase 77 (23-300) U/L SARS-CoV-2 (PCR) Negative (Negative) Influenza A (RT-PCR) Flu a negative (NEGATIVE) Influenza B (RT-PCR) Flu b negative (NEGATIVE) RSV (PCR) Negative (Negative) Urine Dip Bedside Urine Glucose Negative Bedside Urine Bilirubin - Negative Bedside Urine Ketone - Negative Urine Specific Sargent 1.010 Bedside Urine Occult Blood - Negative Bedside Urine pH 6.0 Bedside Urine Protein - Negative Bedside Urine Urobilinogen - Negative Bedside Urine Nitrite - Negative Bedside Urine Leukocytes - Negative Esterase Imaging Data Chest x-ray: Radiologist's Impression: Close Chest X-Ray (Signed) Call,Jono - 10/26/23 Chest X-Ray (Signed) Sandie Crystal - 05/04/23 Chest CTA (Signed) David Fiore - 02/04/23 Chest X-Ray (Signed) David Fiore - 02/04/23 Chest X-Ray (Signed) Randi Pulliam - 02/04/23 Vascular Ultrasound (Signed) Moisés Jimenez - 01/29/23 Chest X-Ray (Signed) Moisés Jimenez - 01/29/23 Outside Echo 12/26/22 Chest X-Ray (Signed) Jayesh Houser - 12/10/22 Chest X-Ray (Signed) Jessica Santiago - 10/09/22 Echocardiogram Ultrasound (Signed) Mei Bazan - 10/08/22 Abdomen/Pelvis CT (Signed) Viet Burton - 10/08/22 Chest X-Ray (Signed) David Fiore - 10/08/[address] (Signed) Viet Burton - 10/08/22 Chest X-Ray (Signed) David Fiore - 10/08/22 Chest CTA (Signed) Viet Burton - 10/08/22 Telemetry Strips 10/08/22 Telemetry Strips 10/08/22 Chest X-Ray (Signed) David Fiore - 09/16/22 Echocardiogram Ultrasound (Signed) Benson Jarrell - 07/14/22 Chest X-Ray (Signed) Jude Mora - 06/27/22 Chest X-Ray (Signed) Call,Jono - 04/20/22 Mammogram Screening (Signed) Randi Pulliam - 12/16/21 Tibia/Fibula X-Ray (Signed) Viet Burton - 08/24/21 Echocardiogram Ultrasound (Signed) Nathan Chambers - 05/01/21 Chest X-Ray (Signed) Sandie Crystal - 04/29/21 Telemetry Strips 04/28/21 Chest X-Ray (Signed) Call,Jono - 04/27/21 Echocardiogram Ultrasound (Signed) Mei Bazan - 10/15/20 Abdomen/Pelvis CT (Signed) Call,Jono - 05/04/20 Abdomen/Pelvis CT (Signed) Naga Santiago - 04/28/20 KUB X-Ray (Signed) Jaja Fioree - 04/23/20 Lower Extremity Ultrasound (Signed) [place] - 08/25/19 Foot X-Ray (Signed) Isaiah Salcido - 08/25/19 Pelvis X-Ray (Signed) Catina,Anuja - 08/04/19 Chest X-Ray (Signed) Catina,Anuja - 08/04/19 Tibia/Fibula X-Ray (Signed) Catina,Anuja - 08/04/19 Foot X-Ray (Signed) Catina,Anuja - 08/04/19 Ankle X-Ray (Signed) Catina,Anuja - 08/04/19 Shoulder X-Ray (Signed) Brian Santiagoradha - 02/25/19 Mammogram Screening (Signed) Lobito Torres - 12/11/18 Abdomen/Pelvis CT (Signed) Jayme Oakes - 09/28/18 Abdomen/Pelvis CT (Signed) Sandie Crystal - 08/10/18 Telemetry Strips 04/09/18 Chest X-Ray (Signed) CatinaDoniAnuja - 03/20/18 Launch?[place] [address] XRay Report Signed Patient: Minnie Price MR#: [id number] : 1965 Acct:[id number] Age/Sex: 58 / F Date of Service: 10/26/23 Loc: ED Accession Number: [id number] Procedure: XR chest 1V Ordering Provider: Isamar Price D.O. PROCEDURE: XR CHEST 1V INDICATIONS: chest pain TECHNIQUE: One view of the chest was acquired. COMPARISON: [facility], CR, XR CHEST 1V, 02/04/2023, 14:41. [facility], CR, XR CHEST 1V, 05/04/2023, 19:50. FINDINGS: Surgical changes and devices: Left pacemaker with right atrial lead and right ventricular AICD lead. Lungs and pleura: Lungs are clear. No pleural effusions or pneumothorax. Mediastinum: Mediastinal contours appear normal. Heart size is within normal limits. Bones and chest wall: No suspicious bony lesions. Overlying soft tissues appear unremarkable. IMPRESSION: No acute cardiopulmonary abnormality is seen. Dictated by: Jono Herrera M.D. on 10/26/2023 at 12:50 Approved by: Jono Herrera M.D. on 10/26/2023 at 12:52 CT scan - head: Radiologist's Impression: Close Head/Neck CTA (Signed) David Fiore - 10/26/[address] (Signed) [place] - 10/26/23 Chest X-Ray (Signed) Jono Herrera - 10/26/23 Chest X-Ray (Signed) Sandie Crystal - 05/04/23 Chest CTA (Signed) [place] - 02/04/23 Chest X-Ray (Signed) David Fiore - 02/04/23 Chest X-Ray (Signed) Randi Pulliam - 02/04/23 Vascular Ultrasound (Signed) Moisés Jimenez - 01/29/23 Chest X-Ray (Signed) Moisés Jimenez - 01/29/23 Outside Echo 12/26/22 Chest X-Ray (Signed) Jayesh Houser - 12/10/22 Chest X-Ray (Signed) Jessica Santiago - 10/09/22 Echocardiogram Ultrasound (Signed) Mei Bazan - 10/08/22 Abdomen/Pelvis CT (Signed) Viet Burton - 10/08/22 Chest X-Ray (Signed) David Fiore - 10/08/[address] (Signed) Viet Burton - 10/08/22 Chest X-Ray (Signed) David Fiore - 10/08/22 Chest CTA (Signed) Viet Burton - 10/08/22 Telemetry Strips 10/08/22 Telemetry Strips 10/08/22 Chest X-Ray (Signed) David Fiore - 09/16/22 Echocardiogram Ultrasound (Signed) Benson Jarrell - 07/14/22 Chest X-Ray (Signed) Jude Mora - 06/27/22 Chest X-Ray (Signed) Jono Herrera - 04/20/22 Mammogram Screening (Signed) Randi Pulliam - 12/16/21 Tibia/Fibula X-Ray (Signed) Viet Burton - 08/24/21 Echocardiogram Ultrasound (Signed) Nathan Chambers - 05/01/21 Chest X-Ray (Signed) Sandie Crystal - 04/29/21 Telemetry Strips 04/28/21 Chest X-Ray (Signed) Call,Jono - 04/27/21 Echocardiogram Ultrasound (Signed) BeniMei - 10/15/20 Abdomen/Pelvis CT (Signed) Call,Jono - 05/04/20 Abdomen/Pelvis CT (Signed) Naga Santiago - 04/28/20 KUB X-Ray (Signed) AdebayoDavid - 04/23/20 Lower Extremity Ultrasound (Signed) Jude Mora - 08/25/19 Foot X-Ray (Signed) Isaiah Salcido - 08/25/19 Pelvis X-Ray (Signed) Anuja Dominique - 08/04/19 Chest X-Ray (Signed) Catina,Anuja - 08/04/19 Tibia/Fibula X-Ray (Signed) Catina,Anuja - 08/04/19 Foot X-Ray (Signed) Catina,Anuja - 08/04/19 Ankle X-Ray (Signed) Catina,Anuja - 08/04/19 Shoulder X-Ray (Signed) Naga Santiago - 02/25/19 Mammogram Screening (Signed) Lobito Torres - 12/11/18 Abdomen/Pelvis CT (Signed) Jayme Oakes - 09/28/18 Abdomen/Pelvis CT (Signed) Sandie Crystal - 08/10/18 Telemetry Strips 04/09/18 Chest X-Ray (Signed) Anuja Dominique - 03/20/[address] [address] [address] Scan Report Signed Patient: Minnie Price MR#: [id number] : 1965 Acct:[id number] Age/Sex: 58 / F Date of Service: 10/26/23 Loc: ED Accession Number: [id number] Procedure: CT head/brain wo con Ordering Provider: Isamar Price D.O. PROCEDURE: CT HEAD/BRAIN WO CON INDICATIONS: triple vision x 40 seconds resolved. TECHNIQUE: Noncontrast 4.5 mm thick angled axial sections acquired from the foramen magnum to the vertex, with coronal and sagittal reformats. For radiation dose reduction, the following was used: automated exposure control, adjustment of mA and/or kV according to patient size. COMPARISON: [facility], CT, CT ANGIO HEAD AND NECK, 10/26/2023, 15:43. [facility], CT, CT HEAD/BRAIN WO CON, 10/08/2022, 10:58. FINDINGS: Image quality: Diagnostic. CSF spaces: Basal cisterns are patent. No extra-axial fluid collections. Ventricles are normal in size and shape. Brain: No midline shift. No intracranial masses or hemorrhage. Mora-white matter interface is normal. Skull and face: Calvarium and visualized facial bones are intact, without suspicious lesions. Sinuses: Visualized sinuses and mastoids are clear. IMPRESSION: Normal noncontrast intracranial study, without a cause of the patient's presenting history identified. Dictated by: David Fiore M.D. on 10/26/2023 at 15:26 Approved by: David Fiore M.D. on 10/26/2023 at 15:27 CTA - brain/neck: Radiologist's Impression: Close Head/Neck CTA (Signed) David Fiore - 10/26/[address] (Signed) David Fiore - 10/26/23 Chest X-Ray (Signed) Jono Herrera - 10/26/23 Chest X-Ray (Signed) Sandie Crystal - 05/04/23 Chest CTA (Signed) David Fiore - 02/04/23 Chest X-Ray (Signed) David Fiore - 02/04/23 Chest X-Ray (Signed) Randi Pulliam - 02/04/23 Vascular Ultrasound (Signed) Moisés Jimenez - 01/29/23 Chest X-Ray (Signed) Moisés Jimenez - 01/29/23 Outside Echo 12/26/22 Chest X-Ray (Signed) Jayesh Houser - 12/10/22 Chest X-Ray (Signed) Jessica Santiago - 10/09/22 Echocardiogram Ultrasound (Signed) Mei Bazan - 10/08/22 Abdomen/Pelvis CT (Signed) Viet Burton - 10/08/22 Chest X-Ray (Signed) David Fiore - 10/08/[address] (Signed) Viet Burton - 10/08/22 Chest X-Ray (Signed) David Fiore - 10/08/22 Chest CTA (Signed) Viet Burton - 10/08/22 Telemetry Strips 10/08/22 Telemetry Strips 10/08/22 Chest X-Ray (Signed) David Fiore - 09/16/22 Echocardiogram Ultrasound (Signed) Benson Jarrell - 07/14/22 Chest X-Ray (Signed) Jude Mora - 06/27/22 Chest X-Ray (Signed) Call,Jono - 04/20/22 Mammogram Screening (Signed) Randi Pulliam - 12/16/21 Tibia/Fibula X-Ray (Signed) Viet Burton - 08/24/21 Echocardiogram Ultrasound (Signed) Nathan Chambers - 05/01/21 Chest X-Ray (Signed) Sandie Crystal - 04/29/21 Telemetry Strips 04/28/21 Chest X-Ray (Signed) Call,Jono - 04/27/21 Echocardiogram Ultrasound (Signed) Mei Bazan - 10/15/20 Abdomen/Pelvis CT (Signed) Call,Jono - 05/04/20 Abdomen/Pelvis CT (Signed) Naga Santiago - 04/28/20 KUB X-Ray (Signed) David Fiore - 04/23/20 Lower Extremity Ultrasound (Signed) Jude Mora - 08/25/19 Foot X-Ray (Signed) Isaiah Salcido - 08/25/19 Pelvis X-Ray (Signed) Catina,Anuja - 08/04/19 Chest X-Ray (Signed) Catina,Anuja - 08/04/19 Tibia/Fibula X-Ray (Signed) Catina,Anuja - 08/04/19 Foot X-Ray (Signed) Catina,Anuja - 08/04/19 Ankle X-Ray (Signed) Catina,Anuja - 08/04/19 Shoulder X-Ray (Signed) Naga Santiago - 02/25/19 Mammogram Screening (Signed) Lobito Torres - 12/11/18 Abdomen/Pelvis CT (Signed) Jayme Oakes - 09/28/18 Abdomen/Pelvis CT (Signed) Ebenezer Crystalley - 08/10/18 Telemetry Strips 04/09/18 Chest X-Ray (Signed) Anuja Dominique - 03/20/18 [facility] [address] [address] [address] Scan Report Signed Patient: Minnie Price MR#: [id number] : 1965 Acct:[id number] Age/Sex: 58 / F Date of Service: 10/26/23 Loc: ED Accession Number: [id number] Procedure: CT angio head and neck Ordering Provider: Isamar Price D.O. PROCEDURE: CT ANGIO HEAD AND NECK INDICATIONS: triple vision x 40 seconds resolved. TECHNIQUE: After the administration of intravenous contrast, 1 mm thick sections acquired from the aortic arch through the [place] of [place]. 3-dimensional bhexaww-ruchzebus-fspicxpcjf (MIP) and/or volume rendering reformats were acquired of the central intracranial vasculature and neck separately. For radiation dose reduction, the following was used: automated exposure control, adjustment of mA and/or kV according to patient size. COMPARISON: [facility], CT, CT HEAD/BRAIN WO CON, 10/26/2023, 15:43. [facility], CR, XR CHEST 1V, 10/26/2023, 12:25. FINDINGS: Image quality: Diagnostic. BRAIN: CSF spaces: Ventricles are normal in size and shape. Basal cisterns are patent. No extra-axial fluid collections. Brain: No significant abnormality of the brain can be seen. Skull and face: Calvarium and facial bones appear intact, without suspicious lesions. Orbits appear normal. Sinuses: Sinuses and mastoids are clear. HEAD CT ANGIOGRAPHY: Anterior circulation: Intracranial internal carotid arteries are normal in size and flow. The flow within the paired anterior cerebral arteries is normal and symmetric. The flow within the middle cerebral arteries is normal and symmetric. The anterior communicating artery is seen. No aneurysms are seen. Posterior circulation: Note is made of bilateral type origins of the posterior cerebral arteries, with an associated diminutive basilar artery. The flow within the posterior cerebral arteries is normal and symmetric. The distal vertebral arteries are overall small in size, yet otherwise unremarkable. No aneurysms are seen. NECK CT ANGIOGRAPHY: Carotid system: The great vessels demonstrate a conventional anatomy as they arise from the aortic arch. The origins of the common carotid arteries appear patent. The common carotid arteries demonstrate normal caliber and courses. The bifurcation regions are both widely patent. The internal carotid arteries demonstrate normal calibers and courses. Posterior circulation: No flow seen within the inferior most left vertebral artery. There is collateral flow seen restoring flow into the left vertebral artery at the inferior V2 segment. The origin of the right vertebral artery is within normal limits. The flow within the right vertebral artery is dominant to the left. Soft tissues: Visualized neck soft tissues demonstrate no suspicious abnormalities. Note is made of collateral circulation within the left neck. A left-sided AICD is partially seen. Bones: No suspicious bony lesions. Visualized cervical spine appears normally aligned. Ywrg-[id number]-hlppiuwa cervical spine degenerative changes are seen. IMPRESSION: No flow seen within the inferior most left vertebral artery, with holiness of flow seen at the V2 segment. No significant carotid abnormality is seen. No significant intracranial arterial abnormality is seen. Additional findings: Nttvje-mi-Jaxduz developmental anomalies Moderate cervical spine degenerative change AICD partially seen Any quantitative measurements of stenosis were performed using NASCET criteria. Dictated by: David Fiore M.D. on 10/26/2023 at 15:27 Approved by: David Fiore M.D. on 10/26/2023 at 15:31 ECG Data Attestation: I personally reviewed and interpreted this ECG as follows: Prior ECG tracings: available for review Interpretation: Atrial paced rhythm rate of 60 FL 200 QRS of 108 [address]TC [address] No acute [address] changes noted. Patient has prior from 05/04/2023 with no acute change. MDM Narrative Medical decision making narrative: 58-year-old female with history of prior VFib arrest AICD nonischemic cardiomyopathy on multiple medications for hypertension, dyslipidemia, cardiac arrhythmia but currently off her anticoagulation. Patient had 30-45 seconds of triple vision resolved. Vitals are appropriate today. Patient does not have any other acute neurologic changes. Unsure if this is secondary to ophthalmologic issue versus neurologic. Patient had head CT is negative. CT angiography showed no flow in the inferior most left vertebral artery with collateral flow seen restoring flow into left vertebral artery at the inferior V2 segment. Discussed with patient she is off her Eliquis secondary to financial issues. She is able to feel all of her other medications. She is currently looking at ordering the Eliquis from [facility] should be significantly cheaper but we discussed might be able to change to a different brand. Patient seems reluctant to do so. Patient notes she felt several thump in her chest. Kenefic flushed afterwards but no persistent symptoms no other acute EKG changes. Patient did not appear to have an event on interrogation of her defibrillator. Neurology, Stroke at [facility] spoke with Dr. Cosme. Notes triple vision is quite rare would suspect more ophthalmologic source but based on patient's CT angiography would be an unlikely source of symptoms and has low suspicion that this is source of issue and with reconstitution of flow suspect this could be longstanding for some time. Agrees with plan to follow up with Ophthalmology and help cyst patient doing back on her normal anticoagulation. Patient updated on findings. Discussed with patient we will give prescription for Pradaxa to see if this will be covered by her insurance. She has a plan to get Eliquis from [facility] if it does not. Discharge Plan Departure Patient Disposition: Home Clinical Impression: Change in vision Activity Restrictions/Additional Instructions: Please follow-up with ophthalmology for further evaluation of your eyes to see if this is a source of the triple vision you had earlier today. Your CT imaging did show there is decreased flow at the inferior left vertebral artery in the neck but there is reconstitution and flow beyond. I did speak with Neurology they do not believe this is a source of your symptoms today but do encourage you to take your Eliquis or a similar medication regularly. A prescription for Pradaxa in place of your Eliquis was sent to [facility] in [place]. Please return for new or worsening symptoms recurrent sudden changes to vision, severe headaches, numbness, tingling or weakness, difficulty with speech, difficulty with movement, new chest pain or shortness of breath or other new or concerning changes. Prescriptions: New dabigatran etexilate [Pradaxa] 150 mg capsule 150 mg PO BID Qty: 60 0RF No Action phenazopyridine [Pyridium] 200 mg tablet 200 mg PO TID 0 Days Qty: 6 0RF fluticasone propionate [Allergy Relief (fluticasone)] 50 mcg/actuation spray,suspension 2 spray intranasal DAILY PRN (Reason: allergy symptoms) Qty: 16 6RF Rx Instructions: administer into each nostril albuterol sulfate 90 mcg/actuation HFA aerosol inhaler 2 puff inhalation Q6H PRN (Reason: shortness of breath or wheezing) Qty: 6.7 5RF ondansetron 4 mg tablet,disintegrating 4 mg PO Q6H PRN (Reason: nausea and vomiting) Qty: 7 0RF levothyroxine 125 mcg tablet 125 mcg PO DAILY Qty: 90 3RF Patient Comments: states has not taken for a long time nitrofurantoin monohyd/m-cryst 100 mg capsule 100 mg PO BID Qty: 10 0RF Rx Instructions: must administer with a meal/food fluticasone propionate 220 mcg/actuation HFA aerosol inhaler 2 puff inhalation BID Qty: 12 3RF metoprolol succinate 25 mg tablet extended release 24 hr 12.5 mg PO DAILY Qty: 45 0RF Rx Instructions: APPT DUE WITH PCP PRIOR TO END OF RX/BEFORE FUTURE FILLS. PLEASE CALL TO SCHEDULE. THANKS 08/20/23 pramipexole 0.5 mg tablet 0.5 mg PO BEDTIME Qty: 90 0RF Rx Instructions: APPT DUE PRIOR TO END OF RX/FUTURE FILLS. PLEASE CALL TO SET UP FUTURE APPT. THANKS 09/24/23. aspirin [Adult Low Dose Aspirin] 81 mg tablet,delayed release (DR/EC) 81 mg PO DAILY famotidine 20 mg tablet 20 mg PO BID lisinopril 2.5 mg tablet 1.25 mg PO DAILY rosuvastatin 20 mg tablet 20 mg PO DAILY bupropion HCl 75 mg tablet 75 mg PO BID Eliquis 5 mg tablet 5 mg PO BID furosemide 20 mg tablet 20 mg PO DAILY methotrexate sodium 2.5 mg tablet 20 mg PO QWEEK Rx Instructions: 4 tabs in AM, 4 tabs in PM QWEEK potassium chloride 8 mEq capsule, extended release 8 meq PO DAILY Qty: 90 3RF magnesium 200 mg tablet 200 mg PO DAILY Qty: 30 0RF doxycycline hyclate 100 mg tablet 100 mg PO BID Qty: 20 0RF hydrocodone-acetaminophen 5-325 mg tablet 1 tab PO Q6H PRN (Reason: pain) Qty: 10 0RF cyclobenzaprine 10 mg tablet 10 mg PO Q8H Qty: 10 0RF Referrals: Mervin Quiles MD [Physician] - Jesse Jain MD [Primary Care Provider] - Stand Alone Forms: Patient Portal/API
--- NOTE | 2023-10-26 15:11 | DI.CT.S_ITS ---
PROCEDURE: CT ANGIO HEAD AND NECK INDICATIONS: triple vision x 40 seconds resolved. TECHNIQUE: After the administration of intravenous contrast, 1 mm thick sections acquired from the aortic arch through the [place] of [place]. 3-dimensional smlmyob-zfwfobnxc-cmseuavisd (MIP) and/or volume rendering reformats were acquired of the central intracranial vasculature and neck separately. For radiation dose reduction, the following was used: automated exposure control, adjustment of mA and/or kV according to patient size. COMPARISON: [facility], CT, CT HEAD/BRAIN WO CON, 10/26/2023, 15:43. [facility], CR, XR CHEST 1V, 10/26/2023, 12:25. FINDINGS: Image quality: Diagnostic. BRAIN: CSF spaces: Ventricles are normal in size and shape. Basal cisterns are patent. No extra-axial fluid collections. Brain: No significant abnormality of the brain can be seen. Skull and face: Calvarium and facial bones appear intact, without suspicious lesions. Orbits appear normal. Sinuses: Sinuses and mastoids are clear. HEAD CT ANGIOGRAPHY: Anterior circulation: Intracranial internal carotid arteries are normal in size and flow. The flow within the paired anterior cerebral arteries is normal and symmetric. The flow within the middle cerebral arteries is normal and symmetric. The anterior communicating artery is seen. No aneurysms are seen. Posterior circulation: Note is made of bilateral type origins of the posterior cerebral arteries, with an associated diminutive basilar artery. The flow within the posterior cerebral arteries is normal and symmetric. The distal vertebral arteries are overall small in size, yet otherwise unremarkable. No aneurysms are seen. NECK CT ANGIOGRAPHY: Carotid system: The great vessels demonstrate a conventional anatomy as they arise from the aortic arch. The origins of the common carotid arteries appear patent. The common carotid arteries demonstrate normal caliber and courses. The bifurcation regions are both widely patent. The internal carotid arteries demonstrate normal calibers and courses. Posterior circulation: No flow seen within the inferior most left vertebral artery. There is collateral flow seen restoring flow into the left vertebral artery at the inferior V2 segment. The origin of the right vertebral artery is within normal limits. The flow within the right vertebral artery is dominant to the left. Soft tissues: Visualized neck soft tissues demonstrate no suspicious abnormalities. Note is made of collateral circulation within the left neck. A left-sided AICD is partially seen. Bones: No suspicious bony lesions. Visualized cervical spine appears normally aligned. Qybi-qi-wbrweesi cervical spine degenerative changes are seen. IMPRESSION: No flow seen within the inferior most left vertebral artery, with shinto of flow seen at the V2 segment. No significant carotid abnormality is seen. No significant intracranial arterial abnormality is seen. 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 Dictated by: David Fiore M.D. on 10/26/2023 at 15:27 Approved by: David Fiore M.D. on 10/26/2023 at 15:31
--- NOTE | 2023-10-26 15:11 | DI.CT.S_ITS ---
PROCEDURE: CT HEAD/BRAIN WO CON INDICATIONS: triple vision x 40 seconds resolved. TECHNIQUE: Noncontrast 4.5 mm thick angled axial sections acquired from the foramen magnum to the vertex, with coronal and sagittal reformats. For radiation dose reduction, the following was used: automated exposure control, adjustment of mA and/or kV according to patient size. COMPARISON: [facility], CT, CT ANGIO HEAD AND NECK, 10/26/2023, 15:43. [facility], CT, CT HEAD/BRAIN WO CON, 10/08/2022, 10:58. FINDINGS: Image quality: Diagnostic. CSF spaces: Basal cisterns are patent. No extra-axial fluid collections. Ventricles are normal in size and shape. Brain: No midline shift. No intracranial masses or hemorrhage. Mora-white matter interface is normal. Skull and face: Calvarium and visualized facial bones are intact, without suspicious lesions. Sinuses: Visualized sinuses and mastoids are clear. IMPRESSION: Normal noncontrast intracranial study, without a cause of the patient's presenting history identified. Dictated by: David Fiore M.D. on 10/26/2023 at 15:26 Approved by: David Fiore M.D. on 10/26/2023 at 15:27
== END 2023-10-26 17:19 | disposition home or self-care (01) ==
PROVIDERS: Emergency Provider Emergency Medicine; PCP Internal Medicine
DX: H53.9 Unspecified visual disturbance (principal); R07.9 Chest pain, unspecified; Z79.01 Long term (current) use of anticoagulants; Z79.899 Other long term (current) drug therapy; Z20.822 Contact with and (suspected) exposure to COVID-19
CPT/HCPCS: 0241U; 36415; 70450; 70496; 70498; 71045; 80053; 81003; 82550; 83690; 83880; 84484; 85025; 93005; 93010; 99284

== ENCOUNTER → 2023-12-18 10:13 | Outpatient (CLI) | payer OTHER, SELFPAY ==
[2021-04-28 02:35] VITALS: BMI 41.9
[2023-12-18 13:11] LABS: Free T4, Direct Thyroxine 1.28 ng/dL (0.78-2.19)
[2023-12-18 13:24] LABS: Thyroid Stimulating Hormone 1.92 uIU/mL (0.47-4.68)
== END ==
PROVIDERS: PCP Internal Medicine; Referring Provider Internal Medicine; Visit Provider Internal Medicine
DX: E03.9 Hypothyroidism, unspecified (principal)
CPT/HCPCS: 36415; 84439; 84443

== ENCOUNTER → 2023-12-25 08:42 | Outpatient (CLI) | payer OTHER, SELFPAY ==
[2021-04-28 02:35] VITALS: BMI 41.9
--- NOTE | 2023-12-25 08:43 | DI.RAD.S_ITS ---
PROCEDURE: FL UPPER GI SMALL BOWEL INDICATIONS: abd pain COMPARISON: [facility], CT, CT ABDOMEN PELVIS W CON, 10/08/2022, 13:16. FINDINGS: KUB: Preprocedural top carrier film shows a normal bowel gas pattern. No suspicious abdominal calcifications. Visualized solid organ contours appear normal in size. No suspicious bony abnormalities. Cholecystectomy clips are noted. There is a cardiac pacemaker. Esophagus: Air-contrast views demonstrate a normal mucosal pattern. On single-contrast views, there is normal peristalsis. No fixed strictures, extrinsic mass effects, or diverticula. Small slight hiatal hernia. No elicited gastroesophageal reflux. There is normal transit of a calibrated barium tablet through the esophagus. Stomach: Postsurgical changes related to gastric bypass. The gastric lumen is normally distensible, and has normal rugal fold thickness. No mucosal masses or ulcers. The pylorus and duodenal bulb have a normal morphology. Small bowel: Duodenal folds appear normal in thickness. There is normal transit time of barium through the small intestine. Small bowel loops appear normal in caliber throughout. Jejunal and ileal folds are smooth and normal in thickness. No strictures, intraluminal masses, or extrinsic mass effects. The terminal ileum is identified and appears normal. IMPRESSION: 1. Gastric bypass. 2. A small hiatal hernia. 3. Normal small bowel follow-through. Dictated by: Jessica Santiago M.D. on 12/25/2023 at 12:59 Approved by: Jessica Santiago M.D. on 12/25/2023 at 13:04
== END ==
LOC: RAD 08:42
PROVIDERS: PCP Internal Medicine; Referring Provider Internal Medicine; Visit Provider Internal Medicine
DX: R10.9 Unspecified abdominal pain (principal); K44.9 Diaphragmatic hernia without obstruction or gangrene; Z98.84 Bariatric surgery status
CPT/HCPCS: 74246; 74248

== ENCOUNTER 2024-07-11 07:35 | Emergency (ER) | payer BC, SELFPAY ==
[2021-04-28 02:35] VITALS: BMI 41.9
[2024-07-11] VITALS (59 sets, daily range): BP systolic 99–121; BP diastolic 57–83; PULSE 60–95; RESP 8–28; TEMP 36.7; O2SAT 95–100; BMI 38.4
--- NOTE | 2024-07-11 07:53 | EKG_ITS ---
[place] [id number] [place] [id number] Test Date: 2024-07-11 Pat Name: Minnie Price Department: [facility] Room: Gender: Female [employer]: ORION : 1965 Requested By: Order Number: [id number] Reading MD: Jesse Jain MD Measurements Intervals [place] Rate: 71 P: NM: QRS: -15 QRSD: 104 T: -16 QT: 400 QTc: 434 Interpretive Statements Suspect atrial paced rhythm with occasional ventricular-paced complexes Incomplete right bundle branch block Possible Anterior infarct , age undetermined Electronically Signed On 07-11-2024 12:54:51 PDT by Jesse Jain MD
--- NOTE | 2024-07-11 07:53 | DI.RAD.S_ITS ---
PROCEDURE: XR CHEST 1V INDICATIONS: chest pain TECHNIQUE: One view of the chest was acquired. COMPARISON: [facility], CR, XR CHEST 1V, 10/26/2023, 12:25. FINDINGS: Surgical changes and devices: Pacemaker Lungs and pleura: Lungs are clear. No pleural effusions or pneumothorax. Mediastinum: Mediastinal contours appear normal. Mild unchanged cardiomegaly. Bones and chest wall: No suspicious bony lesions. Overlying soft tissues appear unremarkable. IMPRESSION: No evidence acute pulmonary process. Dictated by: Jude Mora M.D. on 07/11/2024 at 8:23 Approved by: Jude Mora M.D. on 07/11/2024 at 8:25
--- NOTE | 2024-07-11 07:55 | ED.SOB ---
HPI - SOB/Dyspnea General Chief Complaint: Arrhythmia/Palpitations Stated Complaint: Afib Time Seen by Provider: 07/11/24 07:52 History of Present Illness HPI Narrative: 58-year-old female with history of atrial fibrillation diagnosis 2017, history of [employer]'s type AICD, taking Eliquis and sotalol, ran out of Eliquis 2 weeks ago awaiting mail order refill, prior cardioversion, last cardioversion here February 2023 successful, woke up this morning feeling that might be back in atrial fibrillation. No shocking sensation from her AICD device. No syncope or presyncope. No chest pain or shortness of breath symptoms. She has chronic diarrhea unchanged, no black or red stools, no increased falling of diarrhea. No nausea or emesis. No change in medications, taking same sotalol dosing, although she has unfortunately run out of her Eliquis 2 weeks ago. No history of stroke, no weakness to face arm or leg, no numbness to face arm or leg. No falls injury or trauma. No recent cough fevers chills. She denies painful urination or frequency of urination. She denies abdominal pain. She denies chest pain. Related Data Home Medications Medication Instructions Recorded Confirmed methotrexate sodium 2.5 mg tablet 20 mg PO QWEEK 06/30/22 12/18/23 apixaban 5 mg tablet (Eliquis) 5 mg PO BID 10/19/22 12/18/23 folic acid 1 mg tablet 1 mg PO DAILY 12/18/23 12/18/23 sotalol 80 mg tablet 80 mg PO BID 12/18/23 12/18/23 spironolactone 25 mg tablet 12.5 mg PO DAILY 12/18/23 12/18/23 Previous Rx's Medication Instructions Recorded potassium chloride 8 mEq 8 meq PO DAILY #90 caps 09/25/22 capsule,extended release fluticasone propionate 220 2 puff inhalation BID #12 grams 06/19/23 mcg/actuation HFA aerosol inhaler metoprolol succinate 25 mg 12.5 mg (1/2 x 25 mg) PO DAILY #20 11/01/23 tablet,extended release 24 hr tabs albuterol sulfate 90 mcg/actuation 2 puff inhalation Q6H PRN 12/18/23 aerosol inhaler shortness of breath or wheezing #6.7 grams levothyroxine 125 mcg tablet 125 mcg PO DAILY #90 tabs 12/18/23 pramipexole 0.5 mg tablet 0.5 mg PO BEDTIME restless leg #90 01/01/24 tabs furosemide 20 mg tablet 20 mg PO DAILY #90 tabs 06/02/24 enoxaparin 100 mg/mL subcutaneous 100 mg SUBCUT Q12H #60 mL 07/11/24 syringe (Lovenox) Allergies Allergy/AdvReac Type Severity Reaction Status Date / Time animal dander [ANIMAL DANDER] Allergy Intermediate ITCHY Verified 12/18/23 09:25 WATERY EYES AND SNEEZING grass pollen AdvReac Intermediate itching Verified 12/18/23 09:25 house dust AdvReac Intermediate itching Verified 12/18/23 09:25 Review of Systems Review of Systems Narrative: see HPI Patient History Medical History (Updated 07/11/24 @ 12:23 by Qasim Edmond MD) BMI 38.0-38.9,adult Morbid obesity Non-ischemic cardiomyopathy (~10/2022) Hypokalemia Cardiac arrest with ventricular fibrillation Cervical high risk HPV (human papillomavirus) test positive Alcohol abuse Allergic rhinitis Varicose veins of both lower extremities with complications (~2010) Acquired hypothyroidism (~2016) Depression (Unknown) Peripheral edema (~2010) Obstructive sleep apnea Restless leg Surgical History (Updated 12/18/23 @ 09:59 by Jesse Jain MD) Status post bariatric surgery S/P implantation of automatic cardioverter/defibrillator (AICD) (~10/2022) History of Vasu-en-Y gastric bypass History of thyroidectomy Status post breast lumpectomy Status post laparoscopic cholecystectomy Family History Sister Age: 60 History of breast cancer Son Drug overdose Social History marital status: household members: family occupational status: employed Smoking Status: Current every day smoker Tobacco: How many years used: 3 second hand exposure: No alcohol intake: current substance use type: does not use Type(s) of exercise: none Smoking Status: Current every day smoker tobacco type: cigarettes alcohol intake frequency: other Alcohol type: beer, wine and hard liquor Substance Use Type: does not use Exam Narrative Exam Narrative: GENERAL: Well-developed patient, in mild distress. HEAD: Atraumatic. Normocephalic. EYES: Pupils equal round and reactive. Extraocular motions intact. No scleral icterus. No injection or drainage. ENT: Nose without bleeding, purulent drainage. Throat without erythema, tonsillar hypertrophy or exudate. Airway patent. NECK: Trachea midline. Non tender CARDIOVASCULAR: Regular rate and rhythm without murmurs, gallops, or rubs. RESPIRATORY: Clear to auscultation. Breath sounds equal bilaterally. No wheezes, rales, or rhonchi. GASTROINTESTINAL: Abdomen soft, non-tender, nondistended. EXTREMITIES: No edema or joint tenderness. BACK: Nontender without deformity or crepitance. No flank tenderness. NEURO: AOx3. Nonfocal gross motor exam SKIN: No rash or erythema of visible areas Initial Vital Signs Initial Vital Signs: Vital Signs Pulse Rate 76 07/11/24 07:40 Pulse Oximetry 99 07/11/24 07:40 Course Orders Ordered: Discontinued Medications Apixaban (Apixaban 5 Mg Tablet) 5 mg PO NOW ONE Stop: 07/11/24 08:14 Last Admin: 07/11/24 08:22 Dose: 5 mg Documented By: TRISH Aspirin (Aspirin 81 Mg Chew Tab) 324 mg PO NOW ONE Stop: 07/11/24 07:53 Last Admin: 07/11/24 08:16 Dose: Not Given Documented By: TRISH Sodium Chloride (Normal Saline 0.9%) 1,000 mls @ 150 mls/hr IV CONT SHARON Last Infusion: 07/11/24 12:45 Dose: Infused Documented By: Admin: 07/11/24 08:16 Dose: 150 mls/hr Documented By: TRISH Vital Signs Vital signs: Vital Signs - 8 hr 07/11/24 12:35 07/11/24 12:35 07/11/24 12:40 Pulse Rate 60 60 Respiratory Rate 24 19 Blood Pressure 118/79 07/11/24 12:40 Pulse Rate Respiratory Rate Blood Pressure 119/65 MDM - SOB/Dyspnea Lab Data 07/11/24 08:12 07/11/24 08:12 Labs: Lab Results 07/11/24 07/11/24 Range/Units 08:12 10:13 WBC 4.2 L (4.5-11.0) X10^3/uL RBC 4.08 (4.0-5.2) X10^6/uL Hgb 12.1 (12.0-16.0) g/dL Hct 36.9 (36-46) % MCV 90.5 (80-100) fL MCH 29.7 (26-34) PG MCHC 32.8 (30-36) % RDW 18.1 H (11.6-14.8) % Plt Count 168 (150-400) X10^3/uL Neut % (Auto) 62.6 (50-75) % Lymph % (Auto) 26.8 (25-40) % [place] % (Auto) 7.5 (3-14) % Eos % (Auto) 2.5 (2-4) % Baso % (Auto) 0.6 (0-2) % Neut # (Auto) 2600 (1552-9937) /uL Lymph # (Auto) 1100 (5030-6902) /uL [place] # (Auto) 300 (0-900) /uL Eos # (Auto) 100 (0-450) /uL Baso # (Auto) 0 (0-100) /uL Sodium 138 (137-145) mmol/L Potassium 4.3 (3.4-5.1) mmol/L Chloride 108 H (98-107) mmol/L Carbon Dioxide 26 (22-32) mmol/L BUN 15 (7-17) mg/dL Creatinine 0.57 (0.52-1.04) mg/dL Estimated GFR > 60 (>60) mL/min BUN/Creatinine Ratio 26.3 H (6-22) Glucose 102 H (70-100) mg/dL Calcium 7.9 L (8.4-10.2) mg/dL Magnesium 2.1 (1.6-2.3) mg/dL Total Bilirubin 0.6 (0.2-1.3) mg/dL AST 30 (14-36) IU/L ALT 25 (<35) IU/L Alkaline Phosphatase 66 (38-126) U/L Total Creatine Kinase 41 (30-135) U/L Troponin I < 0.012 < 0.012 (0.01-0.034) ng/mL Total Protein 6.4 (6.3-8.2) g/dL Albumin 3.6 (3.5-5.0) g/dL Globulin 2.8 (1.7-4.1) g/dL Albumin/Globulin Ratio 1.3 (1.0-2.8) Lipase 56 (23-300) U/L Imaging Data Chest x-ray: Radiologist's Impression: [address] [address] XRay Report Signed Patient: Minnie Price MR#: [id number] : 1965 Acct:[id number] Age/Sex: 58 / F Date of Service: 07/11/24 Loc: ED Accession Number: [id number] Procedure: XR chest 1V Ordering Provider: Qasim Edmond MD PROCEDURE: XR CHEST 1V INDICATIONS: chest pain TECHNIQUE: One view of the chest was acquired. COMPARISON: [facility], , XR CHEST 1V, 10/26/2023, 12:25. FINDINGS: Surgical changes and devices: Pacemaker Lungs and pleura: Lungs are clear. No pleural effusions or pneumothorax. Mediastinum: Mediastinal contours appear normal. Mild unchanged cardiomegaly. Bones and chest wall: No suspicious bony lesions. Overlying soft tissues appear unremarkable. IMPRESSION: No evidence acute pulmonary process. Dictated by: Jude Mora M.D. on 07/11/2024 at 8:23 Approved by: Jude Mora M.D. on 07/11/2024 at 8:25 ECG Data Attestation: I personally reviewed and interpreted this ECG as follows: Interpretation: Atrial fibrillation with occasional ventricular paced rhythm, ventricular rate 71. QRS 104, QTC 434. MDM Narrative Medical decision making narrative: 58-year-old female with history of atrial fibrillation, [employer]'s pacemaker, unfortunately off Eliquis for 2 weeks as she is awaiting refill in the male, felt that she went into atrial fibrillation this morning, taking same sotalol dosing. No chest pain or shortness of breath. No syncope or presyncope symptoms. She seems quite stable. Afebrile, sirs screen negative. EKG shows atrial fibrillation with occasional ventricularly paced rhythm. Labs pending. Emergent cardioversion not indicated presently, elective cardioversion contraindicated due to lack of recent anticoagulation awaiting med refills Eliquis. She was sent some kind of report electronically from [employer]'s system, we will attempt to have this sent to an e-mail where we can printed report. She recalls sometimes she has had electrolyte abnormalities, await lab results. Stable for now. We will give p.o. dose Eliquis, consider prescription short term to local pharmacy if she can afford to do so, to restart her Eliquis medication, while awaiting mail order refill. KENNEDY Xie's report, sent electronically to the patient, forward to e-mail and printed here. Impressions: Since 07/10/2024 she has had 2 episodes of nonsustained ventricular tachycardia, episode 05/23/24 of 6 seconds, another episode nonsustained ventricular tachycardia 08/20/24 of 8 seconds, no shocks delivered. Ventricular rate 150 noted last night 07/10/2024 9:00 p.m., that was not characterized as ventricular in origin. No shocks delivered to any events. EKG without obvious ischemic changes, atrial fibrillation noted. Initial troponin negative. Electrolytes unremarkable. Interval troponin also negative. Still in atrial fibrillation on the monitor. She unfortunately can not afford Eliquis new prescription, she is awaiting Eliquis mail order, we will prescribe bridging Lovenox, prescription sent to her pharmacy. 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 Return precautions discussed. Critical Care Time Critical Care Time Attestation: The high probability of a clinically significant, sudden or life threatening deterioration of the [cardiopulmonary] system(s) required my full and direct attention, intervention and personal management. The aggregate critical care time was [] minutes. This time is in addition to time spent performing reported procedures but includes the following: [x] Data Review and interpretation [x] Patient assessment and monitoring of vital signs [x] Documentation [x] Medication orders and management Discharge Plan Departure Patient Disposition: Home Clinical Impression: Atrial fibrillation, Chronic anticoagulation Activity Restrictions/Additional Instructions: History of atrial fibrillation, prior cardioversion successful procedures in the past, unfortunately you had run out of your Eliquis prescription 2 weeks prior to coming today, felt that you had gone into atrial fibrillation, in fact were in atrial fibrillation, but without rapid ventricular response, stable, high risk for post-conversion stroke if any conversion done today, this was contraindicated today. We discussed Eliquis sending prescription, however you felt he could can not forward Eliquis, and we are awaiting your outside pharmacy mail-order Eliquis arrival, that might be within this next month. Bridging anticoagulation with Lovenox injections twice daily 1 month supply sent to your pharmacy, until your Eliquis arrives. It is important to take your Eliquis medication to help prevent stroke due to atrial fibrillation. Currently your in atrial fibrillation, though you might go in and out of atrial fibrillation. Cardioversion contraindicated today. Follow up with your tile power shear operator Dr. Dejesus early next week. Continue your sotalol medication. Return to this/nearest emergency department for any change worsening symptoms or any concerns prior Prescriptions: New enoxaparin [Lovenox] 100 mg/mL syringe 100 mg SUBCUT Q12H Qty: 60 0RF No Action fluticasone propionate 220 mcg/actuation HFA aerosol inhaler 2 puff inhalation BID Qty: 12 3RF metoprolol succinate 25 mg tablet extended release 24 hr 12.5 mg PO DAILY Qty: 20 0RF Rx Instructions: OVERDUE FOR APPT. NO FUTURE FILLS UNTIL SEEN. PLEASE CALL TO SCHEDULE. THANK YOU 11/01/23 pramipexole 0.5 mg tablet 0.5 mg PO BEDTIME Qty: 90 2RF furosemide 20 mg tablet 20 mg PO DAILY Qty: 90 1RF Eliquis 5 mg tablet 5 mg PO BID methotrexate sodium 2.5 mg tablet 20 mg PO QWEEK Rx Instructions: 4 tabs in AM, 4 tabs in PM QWEEK potassium chloride 8 mEq capsule, extended release 8 meq PO DAILY Qty: 90 3RF folic acid 1 mg tablet 1 mg PO DAILY sotalol 80 mg tablet 80 mg PO BID spironolactone 25 mg tablet 12.5 mg PO DAILY albuterol sulfate 90 mcg/actuation HFA aerosol inhaler 2 puff inhalation Q6H PRN (Reason: shortness of breath or wheezing) Qty: 6.7 5RF levothyroxine 125 mcg tablet 125 mcg PO DAILY Qty: 90 3RF Patient Comments: states has not taken for a long time Referrals: Bill Dejesus MD [Physician] - Jesse Jain MD [Primary Care Provider] - Stand Alone Forms: Patient Portal/API
[2024-07-11] MEDS: SODIUM CHLORIDE 0.9% 1,000 ML 150 ML IV (08:16)
[2024-07-11 08:19] LABS: Add Manual Diff / Slide Review NO; Basophils Absolute Auto 0 /uL (0-100); Basophils Percent Auto 0.6 % (0-2); Eosinophils Absolute Auto 100 /uL (0-450); Eosinophils Percent Auto 2.5 % (2-4); Hematocrit 36.9 % (36-46); Hemoglobin 12.1 g/dL (12.0-16.0); Lymphocytes Absolute Auto 1100 /uL (1100-4500); Lymphocytes Percent Auto 26.8 % (25-40); Mean Corpuscular HGB Conc 32.8 % (30-36); Mean Corpuscular Hemoglobin 29.7 PG (26-34); Mean Corpuscular Volume 90.5 fL (80-100); Monocytes Absolute Auto 300 /uL (0-900); Monocytes Percent Auto 7.5 % (3-14); Neutrophils Absolute Auto 2600 /uL (1500-7000); Neutrophils Percent Auto 62.6 % (50-75); Platelet Count 168 X10^3/uL (150-400); Red Blood Cell Count 4.08 X10^6/uL (4.0-5.2); Red Cell Distribution Width 18.1 % (11.6-14.8); White Blood Cell Count 4.2 X10^3/uL (4.5-11.0)
[2024-07-11] MEDS: APIXABAN 5 MG TABLET PO (08:22)
[2024-07-11 08:31] LABS: Alanine Aminotransferase 25 IU/L (<35); Albumin 3.6 g/dL (3.5-5.0); Albumin Globulin Ratio 1.3 (1.0-2.8); Alkaline Phosphatase 66 U/L (38-126); Aspartate Aminotransferase 30 IU/L (14-36); BUN Creatinine Ratio 26.3 (6-22); Bilirubin Total 0.6 mg/dL (0.2-1.3); Blood Urea Nitrogen 15 mg/dL (7-17); Calcium 7.9 mg/dL (8.4-10.2); Carbon Dioxide 26 mmol/L (22-32); Chloride 108 mmol/L (98-107); Creatine Kinase 41 U/L (30-135); Estimated Glomerular Filt Rate > 60 mL/min (>60); Globulin 2.8 g/dL (1.7-4.1); Glucose 102 mg/dL (70-100); Lipase 56 U/L (23-300); Potassium 4.3 mmol/L (3.4-5.1); Sodium 138 mmol/L (137-145); Total Protein 6.4 g/dL (6.3-8.2)
[2024-07-11 08:35] LABS: HEMOLYSIS 74 (0-50)
[2024-07-11 08:43] LABS: Troponin I < 0.012 ng/mL (0.01-0.034)
[2024-07-11 09:26] LABS: Magnesium 2.1 mg/dL (1.6-2.3)
[2024-07-11 11:27] LABS: Troponin I < 0.012 ng/mL (0.01-0.034)
== END 2024-07-11 12:46 | disposition home or self-care (01) ==
PROVIDERS: Emergency Provider Emergency Medicine; PCP Internal Medicine
DX: I48.91 Unspecified atrial fibrillation (principal); R07.9 Chest pain, unspecified; I45.10 Unspecified right bundle-branch block; R19.7 Diarrhea, unspecified; Z79.01 Long term (current) use of anticoagulants; Z95.0 Presence of cardiac pacemaker
CPT/HCPCS: 36415; 71045; 80053; 82550; 83690; 83735; 84484; 85025; 93005; 93010; 96360; 96361; 99284

== ENCOUNTER → 2024-12-16 08:31 | Outpatient (CLI) | payer BC, SELFPAY ==
[2021-04-28 02:35] VITALS: BMI 41.9
[2024-12-16 08:49] LABS: Add Manual Diff / Slide Review NO; Basophils Absolute Auto 0 /uL (0-100); Basophils Percent Auto 0.8 % (0-2); Eosinophils Absolute Auto 0 /uL (0-450); Hematocrit 40.8 % (36-46); Hemoglobin 13.3 g/dL (12.0-16.0); Lymphocytes Absolute Auto 1400 /uL (1100-4500); Lymphocytes Percent Auto 36.5 % (25-40); Mean Corpuscular HGB Conc 32.6 % (30-36); Mean Corpuscular Hemoglobin 27.8 PG (26-34); Mean Corpuscular Volume 85.2 fL (80-100); Monocytes Absolute Auto 400 /uL (0-900); Monocytes Percent Auto 9.2 % (3-14); Neutrophils Absolute Auto 2000 /uL (1500-7000); Neutrophils Percent Auto 53.5 % (50-75); Platelet Count 164 X10^3/uL (150-400); Red Blood Cell Count 4.79 X10^6/uL (4.0-5.2); White Blood Cell Count 3.8 X10^3/uL (4.5-11.0)
[2024-12-16 09:20] LABS: Alanine Aminotransferase 24 IU/L (<35); Albumin 4.1 g/dL (3.5-5.0); Albumin Globulin Ratio 1.6 (1.0-2.8); Alkaline Phosphatase 98 U/L (38-126); Aspartate Aminotransferase 26 IU/L (14-36); BUN Creatinine Ratio 25.4 (6-22); Bilirubin Total 0.7 mg/dL (0.2-1.3); Blood Urea Nitrogen 17 mg/dL (7-17); Calcium 8.6 mg/dL (8.4-10.2); Carbon Dioxide 25 mmol/L (22-32); Chloride 108 mmol/L (98-107); Estimated Glomerular Filt Rate > 60 mL/min (>60); Globulin 2.5 g/dL (1.7-4.1); Glucose 98 mg/dL (70-100); HEMOLYSIS < 15 (0-50); Potassium 4.3 mmol/L (3.4-5.1); Sodium 139 mmol/L (137-145); Total Protein 6.6 g/dL (6.3-8.2)
[2024-12-16 09:34] LABS: Free T4, Direct Thyroxine 1.32 ng/dL (0.78-2.19)
[2024-12-16 09:48] LABS: Thyroid Stimulating Hormone 1.67 uIU/mL (0.47-4.68)
== END ==
PROVIDERS: PCP Internal Medicine; Referring Provider Internal Medicine; Visit Provider Internal Medicine
DX: E03.9 Hypothyroidism, unspecified (principal); R60.9 Edema, unspecified; I48.0 Paroxysmal atrial fibrillation
CPT/HCPCS: 36415; 80053; 84439; 84443; 85025

== ENCOUNTER → 2025-09-09 07:22 | Outpatient (CLI) | payer BC, SELFPAY ==
[2021-04-28 02:35] VITALS: BMI 41.9
[2025-09-09 08:16] LABS: Add Manual Diff / Slide Review NO; Hematocrit 37.1 % (36-46); Hemoglobin 11.9 g/dL (12.0-16.0); Lymphocytes Absolute Auto 1300 /uL (1100-4500); Mean Corpuscular HGB Conc 32.0 % (30-36); Mean Corpuscular Hemoglobin 26.2 PG (26-34); Mean Corpuscular Volume 81.8 fL (80-100); Platelet Count 172 X10^3/uL (150-400)
[2025-09-09 08:35] LABS: Alanine Aminotransferase 20 IU/L (<35); Albumin 4.0 g/dL (3.5-5.0); Albumin Globulin Ratio 1.5 (1.0-2.8); Alkaline Phosphatase 86 U/L (38-126); Blood Urea Nitrogen 15 mg/dL (7-17); Calcium 8.6 mg/dL (8.4-10.2); Carbon Dioxide 28 mmol/L (22-32); Chloride 104 mmol/L (98-107); Estimated Glomerular Filt Rate > 60 mL/min (>60); Globulin 2.6 g/dL (1.7-4.1); Glucose 101 mg/dL (70-99); HEMOLYSIS < 15 (0-50); Potassium 4.3 mmol/L (3.4-5.1); Sodium 138 mmol/L (137-145); Total Protein 6.6 g/dL (6.3-8.2)
== END ==
PROVIDERS: PCP Internal Medicine; Referring Provider Internal Medicine; Visit Provider Internal Medicine Cardiovascular Disease
DX: I49.01 Ventricular fibrillation (principal)
CPT/HCPCS: 36415; 80053; 85025

== ENCOUNTER 2025-09-20 10:12 | Emergency (ER) | payer BC, SELFPAY ==
[2021-04-28 02:35] VITALS: BMI 41.9
[2025-09-20 10:17] VITALS: BP 131/93; PULSE 71; O2SAT 99
--- NOTE | 2025-09-20 10:17 | ED.ARRPALP ---
HPI - Arrhythmia/Palpitations General Chief Complaint: Arrhythmia/Palpitations Stated Complaint: AFIB Time Seen by Provider: 09/20/25 10:15 History of Present Illness HPI narrative: Patient is a 60-year-old female history of atrial fibrillation, cardiac arrest with AICD in place on Eliquis presenting today with a AFib. She reports that she woke up around 630 this morning feeling short of breath. She says this happened sometimes when she feels fluid overloaded she takes a furosemide but then she started noticing that her heart rate was irregular. He is noted to be initial fibrillation with a heart rate controlled in the 90s. She denies any fever chills or chest pain. Related Data Home Medications ?Medication ?Instructions ?Recorded ?Confirmed methotrexate sodium 2.5 mg tablet 20 mg PO QWEEK 06/30/22 12/18/23 apixaban 5 mg tablet (Eliquis) 5 mg PO BID 10/19/22 12/18/23 folic acid 1 mg tablet 1 mg PO DAILY 12/18/23 12/18/23 sotalol 80 mg tablet 80 mg PO BID 12/18/23 12/18/23 spironolactone 25 mg tablet 12.5 mg PO DAILY 12/18/23 12/18/23 Previous Rx's ?Medication ?Instructions ?Recorded potassium chloride 8 mEq 8 meq PO DAILY #90 caps 09/25/22 capsule,extended release fluticasone propionate 220 2 puff inhalation BID #12 grams 06/19/23 mcg/actuation HFA aerosol inhaler metoprolol succinate 25 mg 12.5 mg (1/2 x 25 mg) PO DAILY #20 11/01/23 tablet,extended release 24 hr tabs furosemide 20 mg tablet 20 mg PO DAILY #90 tabs 12/01/24 levothyroxine 125 mcg tablet 125 mcg PO DAILY #90 tabs 12/30/24 pramipexole 0.5 mg tablet 0.5 mg PO BEDTIME restless leg #90 06/17/25 tabs albuterol sulfate 90 mcg/actuation 2 puff inhalation Q6H PRN 07/29/25 aerosol inhaler shortness of breath or wheezing #6.7 grams Allergies Allergy/AdvReac Type Severity Reaction Status Date / Time animal dander (ANIMAL DANDER) Allergy Intermediate ITCHY Verified 12/30/24 14:45 WATERY EYES AND SNEEZING grass pollen AdvReac Intermediate itching Verified 12/30/24 14:45 house dust AdvReac Intermediate itching Verified 12/30/24 14:45 Patient History Medical History BMI 38.0-38.9,adult Morbid obesity Non-ischemic cardiomyopathy (~10/2022) Hypokalemia Cardiac arrest with ventricular fibrillation Cervical high risk HPV (human papillomavirus) test positive Alcohol abuse Allergic rhinitis Varicose veins of both lower extremities with complications (~2010) Acquired hypothyroidism (~2016) Depression (Unknown) Peripheral edema (~2010) Obstructive sleep apnea Restless leg Surgical History Status post bariatric surgery S/P implantation of automatic cardioverter/defibrillator (AICD) (~10/2022) History of Vasu-en-Y gastric bypass History of thyroidectomy Status post breast lumpectomy Status post laparoscopic cholecystectomy Family History Sister Age: 62 History of breast cancer Son Drug overdose Social History marital status: household members: family occupational status: employed Tobacco: How many years used: 3 second hand exposure: No alcohol intake: current substance use type: does not use Type(s) of exercise: none tobacco type: cigarettes alcohol intake frequency: other Alcohol type: beer, wine and hard liquor Exam Initial Vital Signs Initial Vital Signs: Vital Signs Pulse Rate 71 09/20/25 10:17 Blood Pressure 131/93 H 09/20/25 10:17 Pulse Oximetry 99 09/20/25 10:17 GENERAL: Alert well-appearing 60 female and in no acute distress. HEENT: Head atraumatic,EOMI, pupils reactive, face symmetric, moist mucous membranes CARDIOVASCULAR: Regular rate and rhythm without murmurs, rubs or gallops. RESPIRATORY: Breath sounds equal bilaterally, no wheezes rales or rhonchi. ABDOMEN: Soft, nontender. Normoactive bowel sounds all 4 quadrants. No guarding or rebound.s EXTREMITIES: Normal range of motion, no clubbing. +2 pitting edema. Neurovascularly intact NEUROLOGICAL: Alert and oriented x4.Normal gait and speech. Cranial nerves II through XII grossly intact. SKIN: Warm, dry, no laceration, no petechiae, no rashes or lesions. Course Orders Ordered: ED Orders 09/20/25 10:25 XR chest 1V Stat EKG-12 Lead Stat 09/20/25 10:35 Complete Blood Count AUTO DIFF Stat Comprehensive Metabolic Panel Stat Lipase Stat Magnesium Stat NT-proBNP (BNP-Adult 18+) Stat Troponin I Stat Discontinued Medications Furosemide (Furosemide 40 Mg/4 Ml Vial) 40 mg IV NOW ONE Stop: 09/20/25 11:37 Last Admin: 09/20/25 11:47 Dose: 40 mg Documented By: SBF Vital Signs Vital signs: Vital Signs - 8 hr 09/20/25 10:17 09/20/25 10:17 09/20/25 10:30 Pulse Rate 71 79 Respiratory Rate 12 Blood Pressure 131/93 H Pulse Oximetry 99 99 Oxygen Delivery Method 09/20/25 10:34 09/20/25 10:34 09/20/25 10:37 Pulse Rate 78 75 Respiratory Rate 18 18 Blood Pressure 124/83 131/93 H Pulse Oximetry 99 99 Oxygen Delivery Method Room Air 09/20/25 11:00 09/20/25 11:01 09/20/25 11:01 Pulse Rate 80 79 Respiratory Rate 12 15 Blood Pressure 111/66 Pulse Oximetry 98 98 Oxygen Delivery Method MDM - Arrhythmia/Palpitations Lab Data 09/20/25 10:35 09/20/25 10:35 Labs: Lab Results 09/20/25 Range/Units 10:35 WBC 5.0 (4.5-11.0) X10^3/uL RBC 4.57 (4.0-5.2) X10^6/uL Hgb 12.1 (12.0-16.0) g/dL Hct 36.9 (36-46) % MCV 80.9 (80-100) fL MCH 26.6 (26-34) PG MCHC 32.8 (30-36) % RDW 17.0 H (11.6-14.8) % Plt Count 155 (150-400) X10^3/uL Neut % (Auto) 65.5 (50-75) % Lymph % (Auto) 26.0 (25-40) % [place] % (Auto) 8.0 (3-14) % Eos % (Auto) 0.0 L (2-4) % Baso % (Auto) 0.5 (0-2) % Neut # (Auto) 3300 (9229-4199) /uL Lymph # (Auto) 1300 (5137-8266) /uL [place] # (Auto) 400 (0-900) /uL Eos # (Auto) 0 (0-450) /uL Baso # (Auto) 0 (0-100) /uL Sodium 140 (137-145) mmol/L Potassium 4.0 (3.4-5.1) mmol/L Chloride 109 H (98-107) mmol/L Carbon Dioxide 25 (22-32) mmol/L BUN 16 (7-17) mg/dL Creatinine 0.65 (0.52-1.04) mg/dL Estimated GFR > 60 (>60) mL/min BUN/Creatinine Ratio 24.6 H (6-22) Glucose 100 H (70-99) mg/dL Calcium 8.7 (8.4-10.2) mg/dL Magnesium 1.5 L (1.6-2.3) mg/dL Total Bilirubin 0.5 (0.2-1.3) mg/dL AST 26 (14-36) IU/L ALT 20 (<35) IU/L Alkaline Phosphatase 87 (38-126) U/L Troponin I < 0.012 (0.01-0.034) ng/mL NT-Pro-B Natriuret Pep 1410 H (<125) pg/mL Total Protein 7.0 (6.3-8.2) g/dL Albumin 4.1 (3.5-5.0) g/dL Globulin 2.9 (1.7-4.1) g/dL Albumin/Globulin Ratio 1.4 (1.0-2.8) Lipase 82 (23-300) U/L Urine Dip Bedside Urine Glucose Negative Bedside Urine Bilirubin - Negative Bedside Urine Ketone - Negative Urine Specific [place] 1.010 Bedside Urine Occult Blood - Negative Bedside Urine pH 6.0 Bedside Urine Protein - Negative Bedside Urine Urobilinogen - Negative Bedside Urine Nitrite - Negative Bedside Urine Leukocytes - Negative Esterase Imaging Data Chest x-ray: Radiologist's Impresson: PROCEDURE: XR CHEST 1V INDICATIONS: chest pain TECHNIQUE: One view of the chest was acquired. COMPARISON: [facility], CR, XR CHEST 1V, 07/11/2024, 8:01. FINDINGS: Surgical changes and devices: Left chest wall cardiac device with leads in the right atrium right ventricle. Lungs and pleura: Lungs are clear. No pleural effusions or pneumothorax. Mediastinum: Mediastinal contours appear normal. Heart size is normal. Bones and chest wall: No suspicious bony lesions. Overlying soft tissues appear unremarkable. IMPRESSION: No acute cardiopulmonary abnormality is seen. Dictated by: Nikos Fairchild M.D. on 09/20/2025 at 10:06 ECG Data Attestation: I personally reviewed and interpreted this ECG as follows: Prior ECG tracings: available for review Interpretation: Atrial fibrillation rate 85 no acute ischemia MDM Narrative Medical decision making narrative: MDM CC: Heart palpitations Complicating co-morbidities: AICD atrial fibrillation on Eliquis cardiac arrest Data collected from: Patient records Medical records reviewed: Records have been reviewed Differential considered: Atrial fibrillation, atrial flutter, ventricular fibrillation ventricular tachycardic Exam documented above, pertinent findings include: Alert very well-appearing 60-year-old female no acute distress +2 pitting edema Lab Test results independently reviewed as above. Pertinent findings: Troponin negative BNP 1410 Electrolytes within normal limits no NICCI CBC no leukocytosis no anemia Independently reviewed EKG as above Atrial fibrillation rate controlled rate 85 no ischemia Imaging studies independently reviewed: No acute cardiopulmonary process Consultations: [ ] Treatments: Lasix 40 mg Discussion: Patient 60-year-old female presenting to day with atrial fibrillation however she is rate controlled with a heart rate less than 100. She is symptomatic but a blood pressure is within normal limits. She does have some mild CHF with elevated BNP and peripheral edema no hypoxia or evidence of vascular edema on chest x-ray. Discussion with her about cardioversion however she really does not want to be cardioverted there is no need to emergently cardiovert her she is stable. This time patient would just like to go home. Which is reasonable Discharge Plan Departure Patient Disposition: Home Clinical Impression: Atrial fibrillation, CHF (congestive heart failure) Instructions: DI for Atrial Fibrillation Activity Restrictions/Additional Instructions: *You have been diagnosed with atrial fibrillation, CHF *What to do: At this time increase your Lasix to twice a day for the next 3 days *Continue to take medications as directed Lasix 20 mg either twice a day or 40 mg once daily for 3-4 days *Follow up with your primary care provider in 2-3 days or call [phone] *Return to ER if you should have increasing chest pain shortness of breath persistently elevated heart rate more than 120 [or] any new, worsening or concerning symptoms Prescriptions: No Action fluticasone propionate 220 mcg/actuation HFA aerosol inhaler 2 puff inhalation BID Qty: 12 3RF metoprolol succinate 25 mg tablet extended release 24 hr 12.5 mg PO DAILY Qty: 20 0RF Rx Instructions: OVERDUE FOR APPT. NO FUTURE FILLS UNTIL SEEN. PLEASE CALL TO SCHEDULE. THANK YOU 11/01/23 furosemide 20 mg tablet 20 mg PO DAILY Qty: 90 0RF Rx Instructions: APPT DUE WITH PCP PRIOR TO END OF RX/FUTURE FILLS. PLEASE CALL TO SCHEDULE APPT. THANK YOU. 12/01/24. pramipexole 0.5 mg tablet 0.5 mg PO BEDTIME Qty: 90 1RF albuterol sulfate 90 mcg/actuation HFA aerosol inhaler 2 puff inhalation Q6H PRN (Reason: shortness of breath or wheezing) Qty: 6.7 5RF Eliquis 5 mg tablet 5 mg PO BID levothyroxine 125 mcg tablet 125 mcg PO DAILY Qty: 90 3RF Patient Comments: states has not taken for a long time methotrexate sodium 2.5 mg tablet 20 mg PO QWEEK Rx Instructions: 4 tabs in AM, 4 tabs in PM QWEEK potassium chloride 8 mEq capsule, extended release 8 meq PO DAILY Qty: 90 3RF folic acid 1 mg tablet 1 mg PO DAILY sotalol 80 mg tablet 80 mg PO BID spironolactone 25 mg tablet 12.5 mg PO DAILY Referrals: Jesse Jain MD [Primary Care Provider, Internal Medicine] Stand Alone Forms: Patient Portal/API
--- NOTE | 2025-09-20 10:21 | EKG_ITS ---
[address] [address] Test Date: 2025-09-20 Pat Name: Minnie Price Department: Room: Gender: Female [employer]: : 1965 Requested By: Order Number: [id number] Reading MD: Jesse Jain MD Measurements Intervals [place] Rate: 85 P: SC: QRS: -36 QRSD: 102 T: 29 QT: 362 QTc: 430 Interpretive Statements Atrial fibrillation Left axis deviation Incomplete right bundle branch block (old) Electronically Signed On 09-21-2025 8:03:28 PST by Jesse Jain MD
--- NOTE | 2025-09-20 10:25 | DI.RAD.S_ITS ---
PROCEDURE: XR CHEST 1V INDICATIONS: chest pain TECHNIQUE: One view of the chest was acquired. COMPARISON: [facility], CR, XR CHEST 1V, 07/11/2024, 8:01. FINDINGS: Surgical changes and devices: Left chest wall cardiac device with leads in the right atrium right ventricle. Lungs and pleura: Lungs are clear. No pleural effusions or pneumothorax. Mediastinum: Mediastinal contours appear normal. Heart size is normal. Bones and chest wall: No suspicious bony lesions. Overlying soft tissues appear unremarkable. IMPRESSION: No acute cardiopulmonary abnormality is seen. Dictated by: Nikos Fairchild M.D. on 09/20/2025 at 10:06 Approved by: Nikos Fairchild M.D. on 09/20/2025 at 10:07
[2025-09-20 10:30] VITALS: PULSE 79; RESP 12; O2SAT 99
[2025-09-20 10:34] VITALS: BP 124/83; PULSE 78; RESP 18; O2SAT 99
[2025-09-20 10:37] VITALS: BP 131/93; PULSE 75; RESP 18; O2SAT 99; BMI 42.0
[2025-09-20 10:42] LABS: Add Manual Diff / Slide Review NO; Hematocrit 36.9 % (36-46); Hemoglobin 12.1 g/dL (12.0-16.0); Lymphocytes Absolute Auto 1300 /uL (1100-4500); Mean Corpuscular HGB Conc 32.8 % (30-36); Mean Corpuscular Hemoglobin 26.6 PG (26-34); Mean Corpuscular Volume 80.9 fL (80-100); Platelet Count 155 X10^3/uL (150-400)
[2025-09-20 10:54] LABS: Alanine Aminotransferase 20 IU/L (<35); Albumin 4.1 g/dL (3.5-5.0); Albumin Globulin Ratio 1.4 (1.0-2.8); Alkaline Phosphatase 87 U/L (38-126); Blood Urea Nitrogen 16 mg/dL (7-17); Calcium 8.7 mg/dL (8.4-10.2); Carbon Dioxide 25 mmol/L (22-32); Chloride 109 mmol/L (98-107); Estimated Glomerular Filt Rate > 60 mL/min (>60); Globulin 2.9 g/dL (1.7-4.1); Glucose 100 mg/dL (70-99); HEMOLYSIS < 15 (0-50); Lipase 82 U/L (23-300); Magnesium 1.5 mg/dL (1.6-2.3); Potassium 4.0 mmol/L (3.4-5.1); Sodium 140 mmol/L (137-145); Total Protein 7.0 g/dL (6.3-8.2)
[2025-09-20 11:00] VITALS: PULSE 80; RESP 12; O2SAT 98
[2025-09-20 11:01] VITALS: BP 111/66; PULSE 79; RESP 15; O2SAT 98
[2025-09-20 11:06] LABS: NT-proBNP (BNP-Adult 18+) 1410 pg/mL (<125); Troponin I < 0.012 ng/mL (0.01-0.034)
[2025-09-20] MEDS: FUROSEMIDE 40 MG/4 ML VIAL IV (11:47)
== END 2025-09-20 12:23 | disposition home or self-care (01) ==
PROVIDERS: Emergency Provider Emergency Medicine; PCP Internal Medicine
DX: I48.91 Unspecified atrial fibrillation (principal); I50.9 Heart failure, unspecified; R07.9 Chest pain, unspecified; R79.89 Other specified abnormal findings of blood chemistry; R60.0 Localized edema
CPT/HCPCS: 71045; 80053; 81003; 83690; 83735; 83880; 84484; 85025; 93005; 96374; 99284; J1938